=== PATIENT | male | born 1985 | race Caucasian/White ===

== ENCOUNTER 2017-10-07 08:00 | Outpatient (RCR) | payer OTHER, SELFPAY | END 2017-10-07 08:01 | disposition home or self-care (01) | LOC: PT 08:00 | PROVIDERS: Family Provider Family Medicine; PCP Family Medicine; Visit Provider Nurse Practitioner Family | DX: M54.5 Low back pain (principal); M54.10 Radiculopathy, site unspecified; M51.26 Other intervertebral disc displacement, lumbar region; Z98.890 Other specified postprocedural states | CPT/HCPCS: 97010; 97014; 97035; 97110; G0283 ==

== ENCOUNTER → 2017-12-22 07:45 | Outpatient (CLI) | payer OTHER, SELFPAY ==
[2017-12-22 08:08] LABS: Basophils % 0.3 % (0.1-2.0); Eosinophils # 0.1 K/mm3 (0.0-0.4); Eosinophils % 2.6 % (0.1-12.0); Hematocrit 43.6 % (42.0-52.0); Hemoglobin 14.9 g/dL (14.1-18.0); Lymphocytes # 1.5 K/mm3 (0.7-4.5); Lymphocytes % 34.3 K/mm3 (10-50); Mean Corpuscular HGB Conc 34.2 g/dL (31.8-35.4); Mean Corpuscular Hemoglobin 29.9 pg (27.0-31.2); Mean Corpuscular Volume 87.4 fl (80-94); Mean Platelet Volume 7.7 fl (7.4-10.4); Monocytes # 0.3 K/mm3 (0.1-1.0); Monocytes % 7.6 % (1.7-9.3); Neutrophils # 2.4 K/mm3 (1.8-7.8); Neutrophils % 55.2 % (37.0-80.0); Platelet Count 223 K/mm3 (142-424); Red Blood Count 4.99 M/mm3 (4.60-6.20); Red Cell Distribution Width 13.1 % (11.5-17.5); White Blood Count 4.4 K/mm3 (4.8-10.8)
--- NOTE | 2017-12-22 08:11 | CA_ITS ---
PROCEDURE: 2-D M-mode and color Doppler study INDICATIONS FOR THE TEST: Chest painX COPD Heart Murmur Tobacco Smoking PalpitationsX Fatigue Syncope Edema HypertensionXDiabetes Mellitus Rheumatic Fever SOBXDOE Obesity Hyperlipidemia Family History HD Additional History ANXIETY PATIENT INFORMATION HEIGHT: 73 WEIGHT:226 GENDER: Male B/P:137/86 2-D/M-MODE INTERPRETATION: 2-D MEASUREMENTS OBSERVED VALUES IN CMS Right Ventricular Dimension (RVDd) 2.1. Interventricular Septum (Thickness)(IVsd) .8 Left Ventricular Internal Dimensions(LVIDd) .5.5 Left Ventricular Posterior Wall (Thickness)(LVPWd) .9 Aortic Root 3.5 Aortic Cusp Separation 2.5 Left Atrial Dimensions (LAD) 2.6 2D 1. Left atrium is normal size, left ventricle is normal size, there is no concentric left ventricular hypertrophy, visually estimated ejection fraction 55% with no obvious regional wall motion abnormality. 2. The right atrium and right ventricle are normal size and contractility. 3. The aortic, mitral and tricuspid valvular grossly normal. 4. The pulmonic valve is poorly visualized. 5. No significant pericardial effusion noted. DOPPLER INTERROGATION: Doppler interrogation of the aortic, mitral and tricuspid valvular presence of mild mitral and tricuspid regurgitation, tricuspid and jet velocity is insufficient for calculation of the right ventricular systolic pressure, diastolic parameters are within normal range. CONCLUSION: 1. Normal left ventricular size, preserved left ventricular systolic function, visually estimated ejection fraction 55% with no obvious regional wall motion abnormality, diastolic parameters are within normal range. 2. Mild mitral and tricuspid regurgitation 3. No significant pericardial effusion noted.
[2017-12-22 09:05] LABS: Alanine Aminotransferase 31 U/L (12-78); Albumin Level 4.3 gm/dL (3.4-5.0); Alkaline Phosphatase 109 U/L (46-116); Anion Gap 12.2 mEq/L (5-15); Aspartate Amino Transferase 21 U/L (15-37); Bilirubin,Direct 0.2 mg/dL (0.0-0.2); Bilirubin,Indirect 0.5 mg/dL (0.0-0.9); Bilirubin,Total 0.7 mg/dL (0.2-1.0); Blood Urea Nitrogen 12 mg/dL (7-18); Carbon Dioxide 29 mmol/L (21.0-32.0); Chloride 106 mmol/L (98-107); Cholesterol 152 mg/dL (140-200); Creatinine,Serum 0.76 mg/dL (0.70-1.30); Estimated Glomerular Filt Rate 120 ml/min (>60); Free T4 (Free Thyroxine) 1.03 ng/dl (0.76-1.46); GFR (African American) 146 ML/MIN (>60); Glucose 101 mg/dL (74-106); HDL Cholesterol 38 mg/dL (27-67); LDL Cholesterol 106 mg/dL (0-130); Potassium 4.2 mmoL/L (3.5-5.1); Sodium 143 mmol/L (136-145); Thyroid Stimulating Hormone 1.92 uIU/ml (0.358-3.740); Total Protein,Serum 7.2 gm/dL (6.4-8.2); Triglycerides 40 mg/dL (30-200); VLDL Cholesterol 8 mg/dL (0-40)
== END ==
PROVIDERS: Nurse Practitioner Family; Family Provider Family Medicine; PCP Family Medicine; Visit Provider Internal Medicine
DX: R07.9 Chest pain, unspecified (principal); R06.02 Shortness of breath
CPT/HCPCS: 36415; 80048; 80061; 80076; 84439; 84443; 85025; 93017; 93306

== ENCOUNTER 2018-09-03 13:30 | Outpatient (RCR) | payer OTHER, SELFPAY | END 2018-09-03 13:35 | disposition home or self-care (01) | LOC: PT 13:30 | PROVIDERS: Visit Provider Nurse Practitioner Family | DX: M54.16 Radiculopathy, lumbar region (principal) | CPT/HCPCS: 97010; 97014; 97110; 97163; G0283 ==

== ENCOUNTER → 2018-11-01 12:52 | Outpatient (POV) | payer OTHER, SELFPAY ==
[2018-11-01 12:57] VITALS: BP 138/82; PULSE 72; RESP 18; O2SAT 98
--- NOTE | 2018-11-02 08:50 | HMH.PMCON ---
Assessment and Plan (1) Degenerative disc disease Current visit: Yes Status: Chronic Qualifiers: Spinal region: lumbar Qualified Code(s): M51.36 - Other intervertebral disc degeneration, lumbar region Category: Medical (2) Postlaminectomy syndrome Current visit: Yes Status: Chronic Category: Medical Code(s): M96.1 - Postlaminectomy syndrome, not elsewhere classified - Assessment and plan all Dx Assessment and Plan for all problems:: Patient has not had any epidural injections since his surgery. We will start with an L4-L5 lumbar epidural steroid injection and see if this is beneficial. Patient may be a stimulator candidate in the future. I would be cautious using narcotic medications due to the patient's age. Patient is not on any anticoagulation therapy. He is continuing anti-inflammatories. Patient is continuing a home stretching program. Dr. Eden has reviewed this note and agrees with this plan of care. This note was dictated using voice recognition software and may contain errors or omissions HPI - Data of Consult Consult date: 11/02/18 Requesting Physician: Fang Ayala APRN Primary Care Provider: Mir Javier - Consult Narrative Reason for consult: Back pain History of present illness: Mr. Tesfaye is a 32 year old male who presents today for consultation in regards to his low back pain. Patient was seen previously and had epidural injections with no relief. Patient rates his pain today a 7 out of 10. Mostly in his low back radiating into his right leg. Patient had his injection prior to his surgery which he had August 11, 2017. Patient states that he did not have any relief from this. Patient is stating today that he wants work restrictions. Patient MRI fairly benign other than the L4-L5 where there are some postsurgical changes with a right enhancing granulation tissue in the epidural space per report. CC: Fang Ayala APRN [facility] History I have reviewed the patient's past medical history: Yes Medical History: Reports:: Anxiety, Hypertension, Palpitations Laterality Cases: Bilateral: Tonsillectomy Other Surgeries: Yes: Appendectomy - *Social History Smoking Status: Never smoker Alcohol Intake: never Alcohol Intake Frequency:: other Substance Use Type: denies use *Occupational Status:: other Housing: house *Travel in the last 8 weeks: None - Psychiatric History Expresses thoughts of harming self/others: None Suicide Plan Description: No Plan Pschychiatric History:: Reports:: Anxiety Family Hx:: Unable to obtain Review of Systems - Review of Systems ROS General: no recent weight change, no fever, no sleep disturbances Respiratory: no cough, no shortness of air, no recurring pulmonary infections Cardiovascular/Peripheral Vascular: No chest pain, No palpitations, no edema, no shortness of breath. Gastrointestinal: no incontinence, normal bowel movements reported Genitourinary: no incontinence Musculoskeletal: Pain, leg pain Psychiatric: normal mood/ affect, Neurological: [denies weakness in extremities], [denies balance issues] Meds Home Medications Medication Instructions Recorded Confirmed Type alprazolam 0.5 mg tablet 0.5 mg PO DAILY tab 11/26/17 History aspirin 81 mg tablet,delayed 81 mg PO DAILY tab 11/26/17 History release atenolol 25 mg tablet 25 mg PO QAM 11/26/17 History lisinopril 10 mg tablet 10 mg PO DAILY tab 11/26/17 History omeprazole 20 mg capsule,delayed 20 mg PO DAILY cap 11/26/17 History release Allergies Allergy/AdvReac Type Severity Reaction Status Date / Time Penicillins [PENICILLINS] Allergy Intermediate I-RASH Unverified 07/28/17 15:11 Objective Vital signs: Pulse Resp BP Pulse Ox 72 18 138/82 98 11/01/18 12:57 11/01/18 12:57 11/01/18 12:57 11/01/18 12:57 Narrative: Physical Exam General: Alert and oriented x3, no acute distress, pleasant and cooperative
== END ==
PROVIDERS: PCP Family Medicine; Visit Provider Clinical Nurse Specialist Family Health
DX: M51.36 Other intervertebral disc degeneration, lumbar region (principal); M96.1 Postlaminectomy syndrome, not elsewhere classified
CPT/HCPCS: 99202

== ENCOUNTER → 2018-12-06 10:00 | Outpatient (POV) | payer OTHER, SELFPAY ==
[2018-12-06 10:08] VITALS: BP 135/74; PULSE 79; RESP 18; O2SAT 98; BMI 29.9
--- NOTE | 2018-12-06 10:26 | HMH.PAINSOAP ---
[facility] Pain Management SOAP Note Subjective:: Patient is a very pleasant 32-year-old white male who presents today for follow-up. Patient was denied by his injection for a lumbar epidural steroid injection from his insurance. Patient has postlaminectomy syndrome with extreme radiation of his pain down his legs. He is currently on anti-inflammatories along with amitriptyline. We will add gabapentin to his regimen. He rates his pain a 6 out of 10. Patient has done physical therapy and is continuing a home stretching program. Patient had pain for over 6 months. He has failed conservative therapy for over 6 months including medications physical therapy. He rates his pain a 7 out of 10. ROS General: no recent weight change, no fever, no sleep disturbances Respiratory: no cough, no shortness of air, no recurring pulmonary infections Cardiovascular/Peripheral Vascular: No chest pain, No palpitations, no edema, no shortness of breath. Gastrointestinal: no incontinence, normal bowel movements reported Genitourinary: no incontinence Musculoskeletal: Back pain, leg pain Psychiatric: normal mood/ affect Neurological: [denies weakness in extremities], [denies balance issues] Objective:: Physical Exam General: Alert and oriented x3, no acute distress, pleasant and cooperative, [on room air] Lungs: Resps E/U, Symmetrical chest expansion, Eyes: PERRL Musculoskeletal: Flexion and extension of lumbar spine somewhat guarded secondary to pain, deep tendon reflexes normal, strength in upper and lower extremities [5/5], slightly antalgic gait noted, positive straight leg test bilaterally at 30 degrees Neurological: speech clear, [place] equal, no gross sensory deficits Assessment:: Degenerative disc disease lumbar spine with lumbar radiculopathy and postlaminectomy syndrome Plan:: We will start the patient on gabapentin 300 mg 1 p.o. 3 times daily. I do believe the patient is in need of epidural injection at L4-L5 he is not on anticoagulation therapy he is failed conservative measures. He is continuing a home stretching program. Patient day-to-day activity is being limited due to this. I will follow-up with the patient after his injection reassess his symptoms at that time. . Dr. Eden has reviewed this note and agrees with this plan of care. This note was dictated using voice recognition software and may contain errors or omissions
== END ==
PROVIDERS: PCP Family Medicine; Visit Provider Clinical Nurse Specialist Family Health
DX: M51.16 Intervertebral disc disorders with radiculopathy, lumbar region (principal); M96.1 Postlaminectomy syndrome, not elsewhere classified
CPT/HCPCS: 99212

== ENCOUNTER → 2019-03-28 13:55 | Outpatient (POV) | payer MEDICAID, SELFPAY ==
[2019-03-28 14:32] VITALS: BP 127/72; PULSE 76; RESP 18; O2SAT 98; BMI 29.4
--- NOTE | 2019-03-28 14:58 | HMH.PAINSOAP ---
[facility] Pain Management SOAP Note Subjective:: Patient is a very pleasant 33-year-old white male who presents today for follow-up. Patient was denied for his epidural injection from his insurance. He has postlaminectomy syndrome with extreme radiation of pain down his legs. He is currently on anti-inflammatories along with amitriptyline. He is also on gabapentin. He rates his pain today of 6 out of 10. Patient is done physical therapy and is continuing a home stretching program. Patient had pain for over 6 months he has failed conservative therapy for over 6 months including medications and physical therapy. He is not currently on any anticoagulation therapy. ROS General: no recent weight change, no fever, no sleep disturbances Respiratory: no cough, no shortness of air, no recurring pulmonary infections Cardiovascular/Peripheral Vascular: No chest pain, No palpitations, no edema, no shortness of breath. Gastrointestinal: no incontinence, normal bowel movements reported Genitourinary: no incontinence Musculoskeletal: Back pain, leg pain Psychiatric: normal mood/ affect Neurological: [denies weakness in extremities], [denies balance issues] Objective:: Physical Exam General: Alert and oriented x3, no acute distress, pleasant and cooperative, [on room air] Lungs: Resps E/U, Symmetrical chest expansion, Eyes: PERRL Musculoskeletal: Flexion and extension of lumbar spine somewhat guarded secondary to pain, deep tendon reflexes normal, strength in upper and lower extremities [5/5], [abnormal gait noted] positive straight leg raise test bilaterally at 30 degrees Neurological: speech clear, regulatory compliance director equal, no gross sensory deficits Assessment:: Degenerative disc disease lumbar spine with lumbar radiculopathy along with post laminectomy syndrome Plan:: We will schedule him for an L4-L5 lumbar epidural steroid injection. He is failed conservative measures. He is continuing home stretching program. Patient's day-to-day activity is being limited due to this. I will follow-up with him after his injection reassess his symptoms at that time. He is been instructed to call the office if he has any issues prior to his next appointment. Dr. Eden has reviewed this note and agrees with this plan of care. This note was dictated using voice recognition software and may contain errors or omissions Pain Management Hx Components *Have you ever received a pneumonia vaccine?: No *Have you received a flu vaccine this season?: No - *Social History *Occupational Status:: other *Travel in the last 8 weeks: None
--- NOTE | 2019-03-29 08:25 | PC.NURSE ---
called in Rx for Gabapentin 300mg QID with 2 refills to clinic pharmacy per providers' order
== END ==
PROVIDERS: PCP Family Medicine; Visit Provider Clinical Nurse Specialist Family Health
DX: M51.16 Intervertebral disc disorders with radiculopathy, lumbar region (principal); M96.1 Postlaminectomy syndrome, not elsewhere classified
CPT/HCPCS: 99212

== ENCOUNTER → 2019-04-18 13:20 | Outpatient (POV) | payer MEDICAID, SELFPAY ==
[2019-04-18 13:49] VITALS: BP 149/92; PULSE 80; RESP 18; O2SAT 98; BMI 30.1
--- NOTE | 2019-04-18 14:33 | HMH.PAINSOAP ---
[facility] Pain Management SOAP Note Subjective:: Patient is a pleasant 33-year-old white male who presents today for follow-up. He had an epidural injection however in the last few days he has had extreme increase of pain rating down his right leg rating it a 9 out of 10 he is unable to work at his normal pace. He is having quite a lot of issues. ROS General: no recent weight change, no fever, no sleep disturbances Respiratory: no cough, no shortness of air, no recurring pulmonary infections Cardiovascular/Peripheral Vascular: No chest pain, No palpitations, no edema, no shortness of breath. Gastrointestinal: no incontinence, normal bowel movements reported Genitourinary: no incontinence Musculoskeletal: Back pain, leg pain Psychiatric: normal mood/ affect Neurological: [denies weakness in extremities], [denies balance issues] Objective:: Physical Exam General: Alert and oriented x3, no acute distress, pleasant and cooperative, [on room air] Lungs: Resps E/U, Symmetrical chest expansion, Eyes: PERRL Musculoskeletal: Flexion and extension of lumbar spine somewhat guarded secondary to pain, deep tendon reflexes normal, strength in upper and lower extremities [5/5], [abnormal gait noted] Neurological: speech clear, junior manufacturing engineer equal, no gross sensory deficits Assessment:: Postlaminectomy syndrome lumbar spine with lumbar radiculopathy Plan:: We did discuss a neurostimulator he is potentially interested in this. We will give him a dose of prednisone 20 mg 1 p.o. twice daily for 5 days. Also put him on a 10 pound weight limit at work for a week. We will follow-up with the patient on the and is normally scheduled appointment. Dr. Eden has reviewed this note and agrees with this plan of care. This note was dictated using voice recognition software and may contain errors or omissions Pain Management Hx Components *Have you ever received a pneumonia vaccine?: No *Have you received a flu vaccine this season?: Yes - *Social History *Occupational Status:: other *Travel in the last 8 weeks: None
== END ==
PROVIDERS: PCP Family Medicine; Visit Provider Clinical Nurse Specialist Family Health
DX: M96.1 Postlaminectomy syndrome, not elsewhere classified (principal); M54.16 Radiculopathy, lumbar region
CPT/HCPCS: 99212

== ENCOUNTER → 2019-05-09 10:38 | Outpatient (POV) | payer MEDICAID, SELFPAY ==
[2019-05-09 11:05] VITALS: BP 127/74; PULSE 72; RESP 18; O2SAT 98; BMI 31.1
--- NOTE | 2019-05-09 11:47 | HMH.PAINSOAP ---
[facility] Pain Management SOAP Note Subjective:: Patient is a pleasant 33-year-old white male who presents today for follow-up. Patient had an epidural injection however he had extreme pain post procedure. Patient was put on a round of steroids. This has helped. Patient rates his pain a 7 out of 10 most of his pain is down his leg on the right side this is occurred since surgery with Dr. Serrano. Patient has no relief from it is numbness and tingling along with burning and other nervelike pain. Patient's failed gabapentin along with amitriptyline. Patient and I discussed potentially utilizing Lyrica. Patient rates his pain a 7 out of 10 today. Patient can go back to work and lift I encouraged him to use a back brace while lifting. Patient and I discussed neuro stimulation he is interested in pursuing this. Given his age I do not believe a narcotic regimen would be beneficial to him at this time. ROS General: no recent weight change, no fever, no sleep disturbances Respiratory: no cough, no shortness of air, no recurring pulmonary infections Cardiovascular/Peripheral Vascular: No chest pain, No palpitations, no edema, no shortness of breath. Gastrointestinal: no incontinence, normal bowel movements reported Genitourinary: no incontinence Musculoskeletal: Back pain, leg pain Psychiatric: normal mood/ affect Neurological: [denies weakness in extremities], [denies balance issues] Objective:: Physical Exam General: Alert and oriented x3, no acute distress, pleasant and cooperative, [on room air] Lungs: Resps E/U, Symmetrical chest expansion, Eyes: PERRL Musculoskeletal: Flexion and extension of lumbar spine somewhat guarded secondary to pain, deep tendon reflexes normal, strength in upper and lower extremities [5/5], [abnormal gait noted] Neurological: speech clear, field coordinator equal, no gross sensory deficits Assessment:: Physical Exam General: Alert and oriented x3, no acute distress, pleasant and cooperative, [on room air] Lungs: Resps E/U, Symmetrical chest expansion, Eyes: PERRL Musculoskeletal: Flexion and extension of lumbar spine somewhat guarded secondary to pain, deep tendon reflexes normal, strength in upper and lower extremities [5/5], [abnormal gait noted] Neurological: speech clear, field coordinator equal, no gross sensory deficits Plan:: We will start the patient on Lyrica 75 mg 1 p.o. twice daily. I did encourage him to utilize a back brace while lifting. We will set him up for a psychological evaluation to determine if he is a good candidate for a neurostimulator. Patient's been instructed to call the office if he had his any issues prior to his next appointment. Dr. Eden has reviewed this note and agrees with this plan of care. This note was dictated using voice recognition software and may contain errors or omissions [facility] History I have reviewed the patient's past medical history: Yes Medical History: Reports:: Anxiety, Hypertension, Palpitations Denies:: Cancer, Diabetes Mellitus Type 1, Diabetes Mellitus Type 2, MRSA, Seizures *Have you ever received a pneumonia vaccine?: Yes *Have you received a flu vaccine this season?: Yes Other Medical History: Denies: Blood Transfusion Reaction Laterality Cases: Bilateral: Tonsillectomy Other Surgeries: Yes: Appendectomy Amputation: No - *Social History Smoking Status: Never smoker Alcohol Intake: never Alcohol Intake Frequency:: other Substance Use Type: denies use *Occupational Status:: other Housing: house Household Members: spouse *Travel in the last 8 weeks: None - Psychiatric History Pschychiatric History:: Reports:: Anxiety Family Hx:: Unable to obtain
--- NOTE | 2019-05-09 11:51 | P.CONS_ITS ---
[facility] Pain Management SOAP Note Subjective:: Patient is a pleasant 33-year-old white male who presents today for follow-up. Patient had an epidural injection however he had extreme pain post procedure. Patient was put on a round of steroids. This has helped. Patient rates his pain a 7 out of 10 most of his pain is down his leg on the right side this is occurred since surgery with Dr. Serrano. Patient has no relief from it is numbness and tingling along with burning and other nervelike pain. Patient's failed gabapentin along with amitriptyline. Patient and I discussed potentially utilizing Lyrica. Patient rates his pain a 7 out of 10 today. Patient can go back to work and lift I encouraged him to use a back brace while lifting. Patient and I discussed neuro stimulation he is interested in pursuing this. Given his age I do not believe a narcotic regimen would be beneficial to him at this time. ROS General: no recent weight change, no fever, no sleep disturbances Respiratory: no cough, no shortness of air, no recurring pulmonary infections Cardiovascular/Peripheral Vascular: No chest pain, No palpitations, no edema, no shortness of breath. Gastrointestinal: no incontinence, normal bowel movements reported Genitourinary: no incontinence Musculoskeletal: Back pain, leg pain Psychiatric: normal mood/ affect Neurological: [denies weakness in extremities], [denies balance issues] Objective:: Physical Exam General: Alert and oriented x3, no acute distress, pleasant and cooperative, [on room air] Lungs: Resps E/U, Symmetrical chest expansion, Eyes: PERRL Musculoskeletal: Flexion and extension of lumbar spine somewhat guarded secondary to pain, deep tendon reflexes normal, strength in upper and lower extremities [5/5], [abnormal gait noted] Neurological: speech clear, profile saw operator equal, no gross sensory deficits Assessment:: Physical Exam General: Alert and oriented x3, no acute distress, pleasant and cooperative, [on room air] Lungs: Resps E/U, Symmetrical chest expansion, Eyes: PERRL Musculoskeletal: Flexion and extension of lumbar spine somewhat guarded secondary to pain, deep tendon reflexes normal, strength in upper and lower extremities [5/5], [abnormal gait noted] Neurological: speech clear, profile saw operator equal, no gross sensory deficits Plan:: We will start the patient on Lyrica 75 mg 1 p.o. twice daily. I did encourage him to utilize a back brace while lifting. We will set him up for a psychologic al evaluation to determine if he is a good candidate for a neurostimulator. Patient's been instructed to call the office if he had his any issues prior to his next appointment. Dr. Eden has reviewed this note and agrees with this plan of care. This note was dictated using voice recognition software and may contain errors or omissions [facility] History I have reviewed the patient's past medical history: Yes Medical History: Reports:: Anxiety, Hypertension, Palpitations Denies:: Cancer, Diabetes Mellitus Type 1, Diabetes Mellitus Type 2, MRSA, Seizures *Have you ever received a pneumonia vaccine?: Yes *Have you received a flu vaccine this season?: Yes Other Medical History: Denies: Blood Transfusion Reaction Laterality Cases: Bilateral: Tonsillectomy Other Surgeries: Yes: Appendectomy Amputation: No - *Social History Smoking Status: Never smoker Alcohol Intake: never Alcohol Intake Frequency:: other Substance Use Type: denies use *Occupational Status:: other Housing: house Household Members: spouse *Travel in the last 8 weeks:
== END ==
PROVIDERS: PCP Family Medicine; Visit Provider Clinical Nurse Specialist Family Health
DX: G89.18 Other acute postprocedural pain (principal)
CPT/HCPCS: 99212

== ENCOUNTER → 2019-06-28 10:01 | Outpatient (POV) | payer OTHER, SELFPAY ==
[2019-06-28 10:16] VITALS: BP 122/76; PULSE 72; RESP 18; O2SAT 97; BMI 29.5
--- NOTE | 2019-06-28 15:26 | HMH.PAINSOAP ---
[facility] Pain Management SOAP Note Subjective:: Patient is a pleasant 33-year-old white male who presents today for follow-up. Patient is awaiting a neurostimulator approval. Patient has low back pain and bilateral leg pain secondary to surgery. Patient has color changes and swelling in bilateral lower extremities. Patient rates his pain today at 8 out of 10 patient did have a recent injury to his right hip is been having pain since. We will send him for an x-ray today. Start him on some steroids. Patient's typical pain is in his low back and bilateral lower extremities. Patient and I have talked about multiple modalities of interventional treatment. He is tried injection therapy with no relief. Patient is interested in a neurostimulator. I believe given his age that this would be beneficial for him. ROS General: no recent weight change, no fever, no sleep disturbances Respiratory: no cough, no shortness of air, no recurring pulmonary infections Cardiovascular/Peripheral Vascular: No chest pain, No palpitations, no edema, no shortness of breath. Gastrointestinal: no new onset incontinence, normal bowel movements reported Genitourinary: no new onset incontinence Musculoskeletal: Back pain, leg pain, right hip pain Psychiatric: normal mood/ affect, Neurological: [denies new onset weakness in extremities], [denies new onset balance issues] Objective:: Physical Exam General: Alert and oriented x3, no acute distress, pleasant and cooperative, [on room air] Lungs: Resps E/U, Symmetrical chest expansion, Eyes: PERRL Musculoskeletal: Flexion and extension of lumbar spine somewhat guarded secondary to pain, deep tendon reflexes normal, strength in upper and lower extremities [5/5], [abnormal gait noted] Neurological: speech clear, music supervisor equal, no gross sensory deficits Assessment:: Right hip pain, right SI joint pain, low back pain, postlaminectomy syndrome, CRPS type II bilateral lower extremities Plan:: We will plan a neurostimulator trial with 2 leads with 8 electrodes each per his insurance recommendations. We will follow-up throughout his trial and see if it is successful. We will also call in prednisone 20 mg 1 p.o. twice daily for 5 days to help with his hip pain. We will also send him for an x-ray of his right hip. Dr. Eden has reviewed this note and agrees with this plan of care. This note was dictated using voice recognition software and may contain errors or omissions [facility] History I have reviewed the patient's past medical history: Yes Medical History: Reports:: Anxiety, Hypertension, Palpitations Denies:: Cancer, Diabetes Mellitus Type 1, Diabetes Mellitus Type 2, Internal Pacemaker, MRSA, Seizures *Have you ever received a pneumonia vaccine?: No *Have you received a flu vaccine this season?: Yes Other Medical History: Denies: Blood Transfusion Reaction Laterality Cases: Right: Arthroscopy Knee, Bilateral: Tonsillectomy Other Surgeries: Yes: Appendectomy. No: Pacemaker Amputation: No Fractures: No - *Social History Smoking Status: Never smoker Alcohol Intake: never Alcohol Intake Frequency:: other Substance Use Type: denies use *Occupational Status:: employed Housing: house Household Members: spouse *Travel in the last 8 weeks: None - Psychiatric History Pschychiatric History:: Reports:: Anxiety Family Hx:: Cancer
--- NOTE | 2019-06-28 15:29 | P.CONS_ITS ---
[facility] Pain Management SOAP Note Subjective:: Patient is a pleasant 33-year-old white male who presents today for follow-up. Patient is awaiting a neurostimulator approval. Patient has low back pain and bilateral leg pain secondary to surgery. Patient has color changes and swelling in bilateral lower extremities. Patient rates his pain today at 8 out of 10 patient did have a recent injury to his right hip is been having pain since. We will send him for an x-ray today. Start him on some steroids. Patient's typical pain is in his low back and bilateral lower extremities. Patient and I have talked about multiple modalities of interventional treatment. He is tried injection therapy with no relief. Patient is interested in a neurostimulator. I believe given his age that this would be beneficial for him. ROS General: no recent weight change, no fever, no sleep disturbances Respiratory: no cough, no shortness of air, no recurring pulmonary infections Cardiovascular/Peripheral Vascular: No chest pain, No palpitations, no edema, no shortness of breath. Gastrointestinal: no new onset incontinence, normal bowel movements reported Genitourinary: no new onset incontinence Musculoskeletal: Back pain, leg pain, right hip pain Psychiatric: normal mood/ affect, Neurological: [denies new onset weakness in extremities], [denies new onset balance issues] Objective:: Physical Exam General: Alert and oriented x3, no acute distress, pleasant and cooperative, [on room air] Lungs: Resps E/U, Symmetrical chest expansion, Eyes: PERRL Musculoskeletal: Flexion and extension of lumbar spine somewhat guarded secondary to pain, deep tendon reflexes normal, strength in upper and lower extremities [5/5], [abnormal gait noted] Neurological: speech clear, technical designer equal, no gross sensory deficits Assessment:: Right hip pain, right SI joint pain, low back pain, postlaminectomy syndrome, CRPS type II bilateral lower extremities Plan:: We will plan a neurostimulator trial with 2 leads with 8 electrodes each per his insurance recommendations. We will follow-up throughout his trial and see if it is successful. We will also call in prednisone 20 mg 1 p.o. twice daily for 5 days to help with his hip pain. We will also send him for an x-ray of his right hip. Dr. Eden has reviewed this note and agrees with this plan of care. This note was dictated using voice recognition software and may contain errors or omissions [facility] History I have reviewed the patient's past medical history: Yes Medical History: Reports:: Anxiety, Hypertension, Palpitations Denies:: Cancer, Diabetes Mellitus Type 1, Diabetes Mellitus Type 2, Internal Pacemaker, MRSA, Seizures *Have you ever received a pneumonia vaccine?: No *Have you received a flu vaccine this season?: Yes Other Medical History: Denies: Blood Transfusion Reaction Laterality Cases: Right: Arthroscopy Knee, Bilateral: Tonsillectomy Other Surgeries: Yes: Appendectomy. No: Pacemaker Amputation: No Fractures: No - *Social History Smoking Status: Never smoker Alcohol Intake: never Alcohol Intake Frequency:: other Substance Use Type: denies use *Occupational Status:: employed Housing: house Household Members: spouse *Travel in the last 8 weeks: None - Psychiatric History Pschychiatric History:: Reports:: Anxiety Family Hx:: Cancer
== END ==
PROVIDERS: PCP Family Medicine; Visit Provider Clinical Nurse Specialist Family Health
DX: M46.1 Sacroiliitis, not elsewhere classified (principal); M96.1 Postlaminectomy syndrome, not elsewhere classified; G57.73 Causalgia of bilateral lower limbs
CPT/HCPCS: 99212

== ENCOUNTER → 2019-07-05 11:15 | Outpatient (POV) | payer OTHER, SELFPAY ==
[2019-07-05 11:58] VITALS: BP 139/71; PULSE 69; RESP 18; O2SAT 98; BMI 30.3
--- NOTE | 2019-07-05 12:51 | P.PCN_ITS ---
- Procedure Date: 07/05/19 Time: 12:48 Anesthesiologist:: Fang Ayala APRN Complications:: None Pre-procedure Diagnosis:: Degenerative disc disease lumbar spine with lumbar radiculopathy symptoms status post discectomy at L4-L5 with right leg radicular symptoms Post-procedure Diagnosis:: Same Indications for Procedure:: Patient is a very pleasant 33-year-old white male who presents today for neurostimulator trial lead removal. Patient has had over 80% relief of his symptomology. Patient has had a decrease in autonomic symptomology in his right leg. Patient is a successful neurostimulator trial. Patient's failed conservative therapies and surgery. These include physical therapy oral medications injection therapy he has an appropriate psychological evaluation. He rates his pain today a 2 out of 10. 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 Patient's vital signs were monitored with noninvasive blood pressure cuff and pulse oximeter. Patient's tape was removed on her back. The area in which her epidural leads entered was examined to ensure no redness or draining. Patient leads were then removed in sterile fashion. Patient then had Band-Aids placed over the puncture sites. Patient tolerated the procedure well. Plan and Disposition:: We will set the patient up for permanently placement. Leads were placed at T7 and T8. We will use 2 leads. Patient is not on any anticoagulation therapy. Patient was able to decrease his amount of medication needed. Dr. Eden has reviewed this note and agrees with this plan of care. This note was dictated using voice recognition software and may contain errors or omissions I will follow-up with the patient after his permanent implant. Patient I had a long discussion in regards to risk and benefits. I answered all his questions.
== END ==
PROVIDERS: PCP Family Medicine; Visit Provider Clinical Nurse Specialist Family Health
DX: M51.16 Intervertebral disc disorders with radiculopathy, lumbar region (principal); M96.1 Postlaminectomy syndrome, not elsewhere classified
CPT/HCPCS: 99212

== ENCOUNTER → 2019-08-04 10:52 | Outpatient (POV) | payer OTHER, SELFPAY ==
[2019-08-04 11:03] VITALS: BP 140/81; PULSE 86; RESP 18; O2SAT 99; BMI 31.1
--- NOTE | 2019-08-04 11:23 | P.CONS_ITS ---
[facility] Pain Management SOAP Note Subjective:: Patient is a pleasant 33-year-old white male who presents today for low back pain with lumbar radiculopathy symptoms. Patient recently underwent a spinal cord stimulator placement. Overall, he says he is doing well. He rates his pain a 2 out of 10 today. Patient says he is not having any problems at all. Patient had autonomic symptoms of CRPS type I down his right leg. He can failed all conservative therapies including injections, oral medications, physical therapy, and previous surgery. Patient says that he is getting approximately 90% relief after his stimulator placement. He is also continue with anti- inflammatories and a home stretching program. Review of Systems General: No recent weight changes, no fever, no sleep disturbances Respiratory: No cough, no shortness of air, no recurring pulmonary infections Cardiovascular/peripheral vascular: No chest pain, no palpitations, no edema, no shortness of breath Gastrointestinal: No new onset incontinence, normal bowel movements reported Genitourinary: No new onset incontinence Musculoskeletal: Low back pain, right leg pain Psychiatric: Normal mood/affect Neurological: [Denies weakness in extremities], [denies balance issues] Objective:: Physical exam General: Alert and oriented x3, no acute distress, pleasant and cooperative, [on room air] Lungs: Respirations even and unlabored, symmetrical chest expansion Eyes: PERRL Musculoskeletal: Flexion and extension of lumbar spine somewhat guarded secondary to pain, deep tendon reflexes normal, strength in upper and lower extremities [5/5], [abnormal gait noted] Neurological: Speech clear, unit nurse equal, no gross sensory deficit Assessment:: Degenerative disc disease lumbar spine with lumbar radiculopathy symptoms, status post discectomy at L4-L5, right leg radicular symptoms Plan:: Patient is doing well overall following his stimulator placement. His wound VAC was removed, and his incision was well approximated, with no edema, no redness, no drainage noted. We will see the patient back in 2 weeks to remove his sutures. He has been instructed to contact the clinic if he has any concerns before his next appointment. Dr. Eden has reviewed this note and agrees with this plan of care. This note was dictated using voice recognition software and make contain errors or omissions. [facility] History I have reviewed the patient's past medical history: Yes Medical History: Reports:: Anxiety, Hypertension, Palpitations Denies:: Cancer, Diabetes Mellitus Type 1, Diabetes Mellitus Type 2, Internal Pacemaker, MRSA, Seizures *Have you ever received a pneumonia vaccine?: Yes *Have you received a flu vaccine this season?: Yes Other Medical History: Denies: Blood Transfusion Reaction Laterality Cases: Right: Arthroscopy Knee, Bilateral: Tonsillectomy Other Surgeries: Yes: Appendectomy, Other (back sx). No: Pacemaker Amputation: No Fractures: No - *Social History Smoking Status: Never smoker Alcohol Intake: never Alcohol Intake Frequency:: other Substance Use Type: denies use *Occupational Status:: other Housing: house Household Members: spouse *Travel in the last 8 weeks: None - Psychiatric History Pschychiatric History:: Reports:: Anxiety Family Hx:: Cancer
== END ==
PROVIDERS: PCP Family Medicine; Visit Provider Clinical Nurse Specialist Family Health
DX: M51.16 Intervertebral disc disorders with radiculopathy, lumbar region (principal); Z98.890 Other specified postprocedural states
CPT/HCPCS: 99212

== ENCOUNTER → 2019-08-22 10:42 | Outpatient (POV) | payer OTHER, SELFPAY ==
[2019-08-22 11:43] VITALS: BP 131/78; PULSE 75; RESP 18; O2SAT 98; BMI 31.1
--- NOTE | 2019-08-22 12:05 | P.CONS_ITS ---
[facility] Pain Management SOAP Note Subjective:: Patient is a pleasant 33-year-old white male who presents today for follow-up after neurostimulator implant. Overall patient doing well. Patient rates his pain a 1 out of 10 today. Patient is well-healed with no sign symptoms of infection. Patient is being reprogrammed today. ROS General: no recent weight change, no fever, no sleep disturbances Respiratory: no cough, no shortness of air, no recurring pulmonary infections Cardiovascular/Peripheral Vascular: No chest pain, No palpitations, no edema, no shortness of breath. Gastrointestinal: no new onset incontinence, normal bowel movements reported Genitourinary: no new onset incontinence Musculoskeletal: Back pain at times Psychiatric: normal mood/ affect Neurological: [denies new onset weakness in extremities], [denies new onset balance issues] Objective:: Physical Exam General: Alert and oriented x3, no acute distress, pleasant and cooperative, [on room air] Lungs: Resps E/U, Symmetrical chest expansion, Eyes: PERRL Musculoskeletal: Flexion and extension of lumbar spine somewhat guarded secondary to pain, deep tendon reflexes normal, strength in upper and lower extremities [5/5], normal gait noted Neurological: speech clear, metal roaster equal, no gross sensory deficits Assessment:: Degenerative disc disease lumbar spine with lumbar radiculopathy and postlaminectomy syndrome Plan:: We will see the patient back in 2 months reassess his symptoms at that time he is been instructed to call the office if he has any issues prior to the next appointment. We will put him on light duty for the next 4 weeks with a restriction of lifting over 10 pounds. After 8 weeks patient will be cleared of restrictions and may return to work full-time. Dr. Eden has reviewed this note and agrees with this plan of care. This note was dictated using voice recognition software and may contain errors or omissions [facility] History I have reviewed the patient's past medical history: Yes Medical History: Reports:: Anxiety, Hypertension, Palpitations Denies:: Cancer, Diabetes Mellitus Type 1, Diabetes Mellitus Type 2, Internal Pacemaker, MRSA, Seizures *Have you ever received a pneumonia vaccine?: Yes *Have you received a flu vaccine this season?: Yes Other Medical History: Denies: Blood Transfusion Reaction Laterality Cases: Right: Arthroscopy Knee, Bilateral: Tonsillectomy Other Surgeries: Yes: Appendectomy, Other (back sx). No: Pacemaker Amputation: No Fractures: No - *Social History Smoking Status: Never smoker Alcohol Intake: never Alcohol Intake Frequency:: other Substance Use Type: denies use *Occupational Status:: other Housing: house Household Members: spouse *Travel in the last 8 weeks: None - Psychiatric History Pschychiatric History:: Reports:: Anxiety Family Hx:: Cancer
== END ==
PROVIDERS: PCP Family Medicine; Visit Provider Clinical Nurse Specialist Family Health
DX: M51.16 Intervertebral disc disorders with radiculopathy, lumbar region (principal); M96.1 Postlaminectomy syndrome, not elsewhere classified; R00.2 Palpitations; I10 Essential (primary) hypertension; F41.9 Anxiety disorder, unspecified
CPT/HCPCS: 99212

== ENCOUNTER → 2019-12-19 13:14 | Outpatient (POV) | payer OTHER, SELFPAY ==
--- NOTE | 2019-12-19 14:58 | HMH.VVPMSO ---
[facility] Virtual Visit SOAP Consent for virtual visit:: With the recent concerns about the COVID-19, we are trying to minimize exposure to you by shifting to telehealth appointments whenever possible. It restricts me from seeing you in person, but the trade off is protecting you during this pandemic. Can you see and hear me okay, and do you consent to this option? If not, I would be happy to see if we can reschedule your appointment in the future, when feasible. Has patient consented to this virtual visit?: Yes Subjective:: Is a 34-year-old white male who presents today to discuss his injury at work. He is recently hurt his back. Patient does have a neurostimulator which is helping however since he is hurt his back he has had several rounds of steroids with no relief. Patient rates his pain today a 7 out of 10. Patient has difficulty with activities of daily living. Patient has had surgery in the past I do believe it would be beneficial to order an MRI of the lumbar spine to determine if there is any damage done post injury. ROS General: no recent weight change, no fever, no sleep disturbances Respiratory: no cough, no shortness of air, no recurring pulmonary infections Cardiovascular/Peripheral Vascular: No chest pain, No palpitations, no edema, no shortness of breath. Gastrointestinal: no new onset incontinence, normal bowel movements reported Genitourinary: no new onset incontinence Musculoskeletal: Back pain, leg pain Psychiatric: normal mood/ affect, [denies depression], [denies anxiety] Neurological: Some bilateral lower extremities when standing new onset, [denies new onset balance issues] Objective:: Physical exam: Constitutional: Healthy appearing, well-developed, alert, in no acute distress Psychiatric: Judgment and insight intact, Alert and oriented x4 Mood and affect: Mood normal, affect appropriate Head and face: Inspection: Normocephalic atraumatic, extraocular movement intact Respiratory: Breathing nonlabored, nondyspneic Cardiovascular: No cyanosis, clubbing, or edema observed Skin: Head and neck: Skin with no lesions or rash observed Gait: Able to walk without assistive device: Able to heel and toe walk Neurologic: Sensation grossly intact per patient Musculoskeletal: Patient has difficulty with the sitting to standing motion he also has decreased range of motion lumbar spine Assessment:: Degenerative disc disease lumbar spine lumbar radiculopathy, postlaminectomy syndrome, acute low back pain weakness in bilateral lower extremities Plan:: We will order an updated MRI for the patient. This will help us determine if there is been any issues post surgery and with this work injury. I will follow-up with him after that reassess his symptoms at that time he is on an anti-inflammatory. This encounter was performed as a telemedicine visit via secure 2 way video and audio to minimize risk and transmission of Covid-19. The patient and we understand the limitations of a telemedicine visit including inability to check reflexes, possibly missing subtle findings on physical exam. Alternative options were presented to the patient and the patient elected to proceed with the visit. We specifically discussed risk factors for Covid-19 including age, heart or lung disease, diabetes, immunosuppression and travel. We also discussed that NSAIDs may worsen Covid-19 infection symptoms and that they should not be used to treat Covid-19 symptoms. Patient was also informed that corticosteroids in any form oral or injectable will decrease immune response and may increase risk of Covid-[address] Eden has reviewed this patient's chart and this note and agrees with plan of care. Patient has been instructed to call the office if they have any issues prior to the next appointment. Time In:: 13:20 Time Out:: 13:30 [facility] History I have reviewed the patient's past medical history: Yes Medical History: Reports:: Anxiety,
== END ==
PROVIDERS: Visit Provider Clinical Nurse Specialist Family Health
DX: M51.16 Intervertebral disc disorders with radiculopathy, lumbar region (principal); M96.1 Postlaminectomy syndrome, not elsewhere classified
CPT/HCPCS: 99212

== ENCOUNTER → 2019-12-23 09:15 | Outpatient (CLI) | payer OTHER, SELFPAY ==
--- NOTE | 2019-12-23 09:30 | MR_ITS ---
PROCEDURE: MR LUMBAR SPINE WO CON CLINICAL INDICATION: BACK PAIN Low back pain, injury with pain, right leg pain numbness and tingling COMPARISON: [facility]/O MRI-L-SPINE W/O from 05/04/2017 TECHNIQUE: Standard multiplanar multiecho sequences are performed without contrast. 3-D MIP and myelographic images are also rendered and reviewed FINDINGS: There is normal alignment. The spinal cord ends at the T12-L1 level. The patient has had an neurostimulator placed in the interval with artifact from that device. T12-L1: Unremarkable. L1-L2: Unremarkable. L2-L3: Unremarkable. L3-L4: Unremarkable. L4-5: There is mild disc desiccation with bulging disc with an annular fissure along with facet and ligamentum hypertrophy. There is minimal central disc protrusion. This however is smaller than when compared to the previous exam with less mass effect. There is persistent narrowing of the canal at 10 mm. There is bilateral lateral recess narrowing and mild bilateral foraminal narrowing. There appears to be a laminotomy defect on the right at this level. Please correlate with history of possible surgery. L5-S1: Mild facet hypertrophic change. IMPRESSION: 1. There is mild disc desiccation at L4-5 with bulging disc with an annular fissure along with facet and ligamentum hypertrophy. There is a small central disc protrusion. This however is smaller than when compared to the previous exam with less mass effect on today's exam. There is persistent narrowing of the canal at 10 mm but improved compared to the previous exam. There is bilateral lateral recess narrowing and mild bilateral foraminal narrowing. There appears to be a laminotomy defect on the right at this level. Please correlate with history of possible surgery. 2. Otherwise negative MRI of the lumbar spine Dictated by: Cam Taveras MD 12/24/2019 07:43 Electronically signed by Cam Taveras MD in [place] 12/24/2019 07:43
== END ==
PROVIDERS: Visit Provider Anesthesiology
DX: M54.5 Low back pain (principal)
CPT/HCPCS: 72148; 76376

== ENCOUNTER → 2020-01-09 10:58 | Outpatient (POV) | payer OTHER, SELFPAY ==
[2020-01-09 11:26] VITALS: BP 137/82; PULSE 85; RESP 18; TEMP 36.4; O2SAT 99; BMI 30.7
--- NOTE | 2020-01-10 08:22 | P.CONS_ITS ---
[facility] Pain Management SOAP Note Subjective:: Pleasant 34-year-old white male who presents today for follow-up. Patient had an injury resulting in worsening back pain. He does have a neurostimulator which has helped up until recently. Patient did have an MRI there is no new findings on his MRI. Patient and I discussed an epidural steroid injection will move forward with this. He rates his pain a 7 out of 10. ROS General: no recent weight change, no fever, no sleep disturbances Respiratory: no cough, no shortness of air, no recurring pulmonary infections Cardiovascular/Peripheral Vascular: No chest pain, No palpitations, no edema, no shortness of breath. Gastrointestinal: no new onset incontinence, normal bowel movements reported Genitourinary: no new onset incontinence Musculoskeletal: Back pain, leg pain Psychiatric: normal mood/ affect Neurological: [denies new onset weakness in extremities], [denies new onset balance issues] Objective:: Physical Exam General: Alert and oriented x3, no acute distress, pleasant and cooperative, [on room air] Lungs: Resps E/U, Symmetrical chest expansion, Eyes: PERRL Musculoskeletal: Flexion and extension of lumbar spine somewhat guarded secondary to pain, deep tendon reflexes normal, strength in upper and lower extremities [5/5], [abnormal gait noted] Neurological: speech clear, education professor 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 Patient is not on any anticoagulation therapy. Hopefully this will help with his acute pain. We will also have him reprogrammed after the injection. He is been instructed to call the office if he has any issues prior to his next appointment. Dr. Eden has reviewed this note and agrees with this plan of care. This note was dictated using voice recognition software and may contain errors or omissions [facility] History I have reviewed the patient's past medical history: Yes Medical History: Reports:: Anxiety, Hypertension, Palpitations Denies:: Cancer, Diabetes Mellitus Type 1, Diabetes Mellitus Type 2, Internal Pacemaker, MRSA, Seizures *Have you ever received a pneumonia vaccine?: Yes *Have you received a flu vaccine this season?: Yes Other Medical History: Denies: Blood Transfusion Reaction Laterality Cases: Right: Arthroscopy Knee, Bilateral: Tonsillectomy Other Surgeries: Yes: Appendectomy, Other (back sx). No: Pacemaker Amputation: No Fractures: No - *Social History Smoking Status: Never smoker Alcohol Intake: never Alcohol Intake Frequency:: other Substance Use Type: denies use *Occupational Status:: other Housing: house Household Members: spouse *Travel in the last 8 weeks: None - Psychiatric History Pschychiatric History:: Reports:: Anxiety Family Hx:: Cancer
== END ==
PROVIDERS: PCP Family Medicine; Visit Provider Clinical Nurse Specialist Family Health
DX: M51.16 Intervertebral disc disorders with radiculopathy, lumbar region (principal); M96.1 Postlaminectomy syndrome, not elsewhere classified
CPT/HCPCS: 99212

== ENCOUNTER 2020-01-13 08:34 | Day surgery (SDC) | payer OTHER, SELFPAY ==
[2020-01-13 08:49] VITALS: BP 141/87; PULSE 95; RESP 18; O2SAT 97; BMI 29.0
[2020-01-13 09:32] VITALS: BP 103/79; PULSE 92; RESP 18; O2SAT 99
[2020-01-13 09:33] VITALS: BP 105/82; PULSE 92; RESP 18; O2SAT 99
--- NOTE | 2020-01-13 09:36 | HMH.PMPROC ---
- Procedure Date: 01/13/20 Time: 09:36 Anesthesiologist:: Brayan Eden MD Complications:: None Pre-procedure Diagnosis:: Degenerative disc disease of lumbar spine with lumbar radiculopathy symptoms and postlaminectomy syndrome of lumbar spine Post-procedure Diagnosis:: Same Indications for Procedure:: This patient is a pleasant 34-year-old white male who we have been treating for low back pain with lumbar radiculopathy symptoms and postlaminectomy syndrome lumbar spine. He recently had an injury approximately a month ago where he had some increasing pain in his low back especially on the right side. There is no new findings on MRI. He did have a [employer] stimulator in place which was reprogrammed today to help with his pain symptoms. We will also do a lumbar pleural steroid injection under fluoroscopy to help him with his pain symptoms. Procedure Details:: Lumbar epidural steroid injection under fluoroscopy Informed consent was obtained and the risk and benefits of the procedure was explained to the patient. The patient was taken to the procedure room. The patient was placed prone on the procedure table. The patient was prepped and draped in sterile fashion. C-arm fluoroscopy was used to view the lumbar spine. Skin and subcutaneous tissues were anesthetized using lidocaine. I placed an 18-gauge epidural needle and advanced into the L4-L5 interspace using fluoroscopic guidance and [id number] to air. After confirmation of needle placement in the epidural space with dye I injected 2 mL of lidocaine 1.5% with Depo-Medrol 80 mg. Patient tolerated the procedure well with no complications. Plan and Disposition:: We will follow-up with him in 2 weeks. Will reevaluate symptoms at that time.
[2020-01-13 09:40] VITALS: BP 124/84; PULSE 82; RESP 20; O2SAT 97
== END 2020-01-13 09:40 | disposition home or self-care (01) ==
LOC: SC.PAINP 08:34
PROVIDERS: PCP Family Medicine; Visit Provider Anesthesiology
DX: M51.16 Intervertebral disc disorders with radiculopathy, lumbar region (principal); M96.1 Postlaminectomy syndrome, not elsewhere classified; I49.9 Cardiac arrhythmia, unspecified; Z90.89 Acquired absence of other organs; Z87.39 Personal history of other diseases of the musculoskeletal system and connective tissue
CPT/HCPCS: 62323; J1040; Q9966

== ENCOUNTER → 2020-01-24 11:38 | Outpatient (POV) | payer OTHER, SELFPAY ==
[2020-01-24 12:05] VITALS: BP 120/78; PULSE 79; RESP 18; O2SAT 98; BMI 29.7
--- NOTE | 2020-01-24 12:29 | HMH.PAINSOAP ---
[facility] Pain Management SOAP Note Subjective:: Patient is a pleasant 34-year-old white male who we are treating for low back pain with lumbar radiculopathy symptoms and postlaminectomy syndrome he has a Medtronic stimulator which is working quite well for him he rates his pain a 3 out of 10. Patient is following up after lumbar epidural steroid injection. Patient has significantly improved over 80%. Patient will be starting a new position at work that will be less physically demanding. He would like to follow-up in several months. ROS General: no recent weight change, no fever, no sleep disturbances Respiratory: no cough, no shortness of air, no recurring pulmonary infections Cardiovascular/Peripheral Vascular: No chest pain, No palpitations, no edema, no shortness of breath. Gastrointestinal: no new onset incontinence, normal bowel movements reported Genitourinary: no new onset incontinence Musculoskeletal: Back pain, leg pain Psychiatric: normal mood/ affect Neurological: [denies new onset weakness in extremities], [denies new onset balance issues] Objective:: Physical Exam General: Alert and oriented x3, no acute distress, pleasant and cooperative, [on room air] Lungs: Resps E/U, Symmetrical chest expansion, Eyes: PERRL Musculoskeletal: Flexion and extension of lumbar spine somewhat guarded secondary to pain, deep tendon reflexes normal, strength in upper and lower extremities [5/5], antalgic gait noted Neurological: speech clear, acidity tester equal, no gross sensory deficits Assessment:: Degenerative disc disease lumbar spine lumbar radiculopathy and postlaminectomy syndrome Plan:: We will see the patient back in 4 months reassess his symptoms at that time he has been instructed to call the office if he has any issues prior to his next appointment. Dr. Eden has reviewed this note and agrees with this plan of care. This note was dictated using voice recognition software and may contain errors or omissions [facility] History I have reviewed the patient's past medical history: Yes Medical History: Reports:: Anxiety, Arrhythmia, Hypertension, Palpitations Denies:: Cancer, Diabetes Mellitus Type 1, Diabetes Mellitus Type 2, Internal Pacemaker, MRSA, Seizures *Have you ever received a pneumonia vaccine?: Yes *Have you received a flu vaccine this season?: Yes Other Medical History: Denies: Blood Transfusion Reaction Laterality Cases: Right: Arthroscopy Knee, Bilateral: Tonsillectomy Other Surgeries: Yes: Appendectomy, Other (back sx). No: Pacemaker Amputation: No Fractures: No - *Social History Smoking Status: Never smoker Alcohol Intake: never Alcohol Intake Frequency:: other Substance Use Type: denies use *Occupational Status:: other Housing: house Household Members: spouse *Travel in the last 8 weeks: None - Psychiatric History Pschychiatric History:: Reports:: Anxiety Family Hx:: Cancer
== END ==
PROVIDERS: PCP Family Medicine; Visit Provider Clinical Nurse Specialist Family Health
DX: M51.16 Intervertebral disc disorders with radiculopathy, lumbar region (principal); M96.1 Postlaminectomy syndrome, not elsewhere classified
CPT/HCPCS: 99212

== ENCOUNTER → 2020-03-01 14:10 | Outpatient (POV) | payer OTHER, SELFPAY ==
[2020-03-01 14:55] VITALS: BP 138/88; PULSE 85; RESP 18; TEMP 36.6; O2SAT 99; BMI 30.9
--- NOTE | 2020-03-01 15:44 | HMH.PAINSOAP ---
[facility] Pain Management SOAP Note Subjective:: Patient is a pleasant 34-year-old male who presents today for follow-up. He has been treated for low back pain with lumbar radiculopathy symptoms and postlaminectomy syndrome of lumbar spine. He does currently have a Medtronic stimulator to treat his pain. He is here today for programming. Patient does rate his pain a 3 out of 10 today. Says he is having some worsening pain lower extremities. Review of Systems General: No recent weight changes, no fever, no sleep disturbances Respiratory: No cough, no shortness of air, no recurring pulmonary infections Cardiovascular/peripheral vascular: No chest pain, no palpitations, no edema, no shortness of breath Gastrointestinal: No new onset incontinence, normal bowel movements reported Genitourinary: No new onset incontinence Musculoskeletal: Back pain, bilateral lower extremity pain Psychiatric: Normal mood/affect Neurological: [Denies weakness in extremities], [denies balance issues] Objective:: Physical exam General: Alert and oriented x3, no acute distress, pleasant and cooperative, [on room air] Lungs: Respirations even and unlabored, symmetrical chest expansion Eyes: PERRL Musculoskeletal: Flexion and extension of lumbar spine somewhat guarded secondary to pain, deep tendon reflexes normal, strength in upper and lower extremities [5/5], [abnormal gait noted] Neurological: Speech clear, die casting supervisor equal, no gross sensory deficit Assessment:: Degenerative disc disease lumbar spine with lumbar radiculopathy symptoms, postlaminectomy syndrome lumbar spine Plan:: Patient was reprogrammed today. He says this did help him with his pain. We will plan to see him back in the clinic in 1 month to reassess his symptoms. He has been instructed to contact the clinic if he has any concerns before his next appointment. The patient and I specifically discussed risk factors for COVID19. These risks include, but are not limited to age greater than 60, heart or lung disease, diabetes, immunosuppression, and travel. We also discussed NSAIDs may worsen COVID19 infection or symptoms. Patient should not use NSAIDs to treat COVID19 signs or symptoms. Patient was also informed that any type of corticosteroid of any form (oral or injection) will decrease the patient's immune system response and may increase the likelihood of COVID19 infection [address] symptoms[address]. Eden has reviewed this note and agrees with this plan of care. This note was dictated using voice recognition software and make contain errors or omissions. [facility] History I have reviewed the patient's past medical history: Yes Medical History: Reports:: Anxiety, Arrhythmia, Hypertension, Palpitations Denies:: Cancer, Diabetes Mellitus Type 1, Diabetes Mellitus Type 2, Internal Pacemaker, MRSA, Seizures *Have you ever received a pneumonia vaccine?: Yes *Have you received a flu vaccine this season?: Yes Other Medical History: Denies: Blood Transfusion Reaction Laterality Cases: Right: Arthroscopy Knee, Bilateral: Tonsillectomy Other Surgeries: Yes: Appendectomy, Other (back sx). No: Pacemaker Amputation: No Fractures: No - *Social History Smoking Status: Never smoker Alcohol Intake: never Alcohol Intake Frequency:: other Substance Use Type: denies use *Occupational Status:: other Housing: house Household Members: spouse *Travel in the last 8 weeks: None - Psychiatric History Pschychiatric History:: Reports:: Anxiety Family Hx:: Cancer
== END ==
PROVIDERS: PCP Family Medicine; Visit Provider Clinical Nurse Specialist Family Health
DX: M51.16 Intervertebral disc disorders with radiculopathy, lumbar region (principal); M96.1 Postlaminectomy syndrome, not elsewhere classified
CPT/HCPCS: 99212

== ENCOUNTER → 2020-03-29 12:55 | Outpatient (POV) | payer OTHER, SELFPAY ==
[2020-03-29 13:22] VITALS: BP 142/77; PULSE 74; RESP 18; TEMP 36.6; O2SAT 99; BMI 31.6
--- NOTE | 2020-03-29 13:34 | HMH.PAINSOAP ---
[facility] Pain Management SOAP Note Subjective:: Patient is a pleasant 34-year-old male who presents today for follow-up. He has been treated for low back pain with lumbar radiculopathy symptoms and postlaminectomy syndrome lumbar spine. He is meeting with the [employer] stimulator medical customer service representative for reprogramming today. Patient rates his pain a 4 out of 10. He is still having issues with sleeping on his back. He says he wakes up with severe pain in his low back area. He is currently on cyclobenzaprine, however, he says it is not working. Review of Systems General: No recent weight changes, no fever, no sleep disturbances Respiratory: No cough, no shortness of air, no recurring pulmonary infections Cardiovascular/peripheral vascular: No chest pain, no palpitations, no edema, no shortness of breath Gastrointestinal: No new onset incontinence, normal bowel movements reported Genitourinary: No new onset incontinence Musculoskeletal: Low back pain Psychiatric: Normal mood/affect Neurological: [Denies weakness in extremities], [denies balance issues] Objective:: Physical exam General: Alert and oriented x3, no acute distress, pleasant and cooperative, [on room air] Lungs: Respirations even and unlabored, symmetrical chest expansion Eyes: PERRL Musculoskeletal: Flexion and extension of lumbar spine somewhat guarded secondary to pain, deep tendon reflexes normal, strength in upper and lower extremities [5/5], [abnormal gait noted] Neurological: Speech clear, fan blade aligner equal, no gross sensory deficit Assessment:: Degenerative disc disease lumbar spine with lumbar radiculopathy symptoms, postlaminectomy syndrome lumbar spine Plan:: We we will stop the patient cyclobenzaprine and start him on tizanidine 4 mg 1 tablet p.o. twice daily. We will see him back in the clinic in a month to reassess his symptoms. He has been instructed to contact clinic if he has any concerns before his next appointment. The patient and I specifically discussed risk factors for COVID19. These risks include, but are not limited to age greater than 60, heart or lung disease, diabetes, immunosuppression, and travel. We also discussed NSAIDs may worsen COVID19 infection or symptoms. Patient should not use NSAIDs to treat COVID19 signs or symptoms. Patient was also informed that any type of corticosteroid of any form (oral or injection) will decrease the patient's immune system response and may increase the likelihood of COVID19 infection and symptoms[address] Eden has reviewed this note and agrees with this plan of care. This note was dictated using voice recognition software and make contain errors or omissions. [facility] History I have reviewed the patient's past medical history: Yes Medical History: Reports:: Anxiety, Arrhythmia, Hypertension, Palpitations Denies:: Cancer, Diabetes Mellitus Type 1, Diabetes Mellitus Type 2, Internal Pacemaker, MRSA, Seizures *Have you ever received a pneumonia vaccine?: Yes *Have you received a flu vaccine this season?: Yes Other Medical History: Denies: Blood Transfusion Reaction Laterality Cases: Right: Arthroscopy Knee, Bilateral: Tonsillectomy Other Surgeries: Yes: Appendectomy, Other (back sx). No: Pacemaker Amputation: No Fractures: No - *Social History Smoking Status: Never smoker Alcohol Intake: never Alcohol Intake Frequency:: other Substance Use Type: denies use *Occupational Status:: other Housing: house Household Members: spouse *Travel in the last 8 weeks: None - Psychiatric History Pschychiatric History:: Reports:: Anxiety Family Hx:: Cancer
== END ==
PROVIDERS: PCP Family Medicine; Visit Provider Clinical Nurse Specialist Family Health
DX: M51.16 Intervertebral disc disorders with radiculopathy, lumbar region (principal); M96.1 Postlaminectomy syndrome, not elsewhere classified
CPT/HCPCS: 99212

== ENCOUNTER → 2020-04-26 12:50 | Outpatient (POV) | payer OTHER, SELFPAY ==
[2020-04-26 12:59] VITALS: BP 126/77; PULSE 71; RESP 18; TEMP 36.6; O2SAT 98; BMI 33.2
--- NOTE | 2020-04-26 13:00 | HMH.PAINSOAP ---
[facility] Pain Management SOAP Note Subjective:: Patient is a pleasant 34-year-old white male who presents today for reprogramming. He does have a Medtronic spinal cord stimulator in place that he says gives him great relief. Patient recently started a different position at his current workplace and says that his pain is different at this time. He says that it has worsened in his low back, which increases when he bends forward. He rates his pain a 3 out of 10 when sitting. He was started on tizanidine at his last visit and says this has been helpful, however, it is not lasting long enough. Patient I did discuss increasing his tizanidine amount from 2 times a day to 3 times a day. He is in agreement with this. We will plan to reprogram the patient today to see if this helps. If the patient does not getting relief, we may need to possibly plan for medial branch/facet joint injections. Review of Systems General: No recent weight changes, no fever, no sleep disturbances Respiratory: No cough, no shortness of air, no recurring pulmonary infections Cardiovascular/peripheral vascular: No chest pain, no palpitations, no edema, no shortness of breath Gastrointestinal: No new onset incontinence, normal bowel movements reported Genitourinary: No new onset incontinence Musculoskeletal: Low back pain Psychiatric: Normal mood/affect Neurological: [Denies weakness in extremities], [denies balance issues] Objective:: Physical exam General: Alert and oriented x3, no acute distress, pleasant and cooperative, [on room air] Lungs: Respirations even and unlabored, symmetrical chest expansion Eyes: PERRL Musculoskeletal: Flexion and extension of lumbar spine somewhat guarded secondary to pain, deep tendon reflexes normal, strength in upper and lower extremities [5/5], [abnormal gait noted] Neurological: Speech clear, terrazzo tile maker equal, no gross sensory deficit Assessment:: Degenerative disc disease lumbar spine with lumbar radiculopathy symptoms, postlaminectomy syndrome lumbar spine Plan:: Patient was reprogrammed today. He is feeling better since having some reprogramming. We will increase patient's has anodyne to 4 mg 1 tablet p.o. 3 times daily. This has been beneficial for his pain. We will plan to see him back in the clinic in 1 month to reassess his symptoms. He has been instructed to contact the clinic if he has any concerns before his next appointment. The patient and I specifically discussed risk factors for COVID19. These risks include, but are not limited to age greater than 60, heart or lung disease, diabetes, immunosuppression, and travel. We also discussed NSAIDs may worsen COVID19 infection or symptoms. Patient should not use NSAIDs to treat COVID19 signs or symptoms. Patient was also informed that any type of corticosteroid of any form (oral or injection) will decrease the patient's immune system response and may increase the likelihood of COVID19 [address] Eden has reviewed this note and agrees with this plan of care. This note was dictated using voice recognition software and make contain errors or omissions. [facility] History I have reviewed the patient's past medical history: Yes Medical History: Reports:: Anxiety, Arrhythmia, Hypertension, Palpitations Denies:: Cancer, Diabetes Mellitus Type 1, Diabetes Mellitus Type 2, Internal Pacemaker, MRSA, Seizures *Have you ever received a pneumonia vaccine?: Yes *Have you received a flu vaccine this season?: Yes Other Medical History: Denies: Blood Transfusion Reaction Laterality Cases: Right: Arthroscopy Knee, Bilateral: Tonsillectomy Other Surgeries: Yes: Appendectomy, Other (back sx). No: Pacemaker Amputation: No Fractures: No - *Social History Smoking Status: Never smoker Alcohol Intake: never Alcohol Intake Frequency:: other Substance Use Type: denies use *Occupational Status:: other Housing: house Household Members: spouse *Travel in the last 8 weeks: Non
== END ==
PROVIDERS: PCP Family Medicine; Visit Provider Clinical Nurse Specialist Family Health
DX: M51.16 Intervertebral disc disorders with radiculopathy, lumbar region (principal); M96.1 Postlaminectomy syndrome, not elsewhere classified
CPT/HCPCS: 99212

== ENCOUNTER 2020-05-03 16:07 | Emergency (ER) | payer OTHER, SELFPAY ==
[2020-05-03 16:22] VITALS: BP 132/81; PULSE 76; RESP 19; TEMP 36.8; O2SAT 98; BMI 32.3
[2020-05-03 16:36] LABS: UTC Influenza A Antigen Negative (Negative)
[2020-05-03 16:37] LABS: UTC Influenza B Antigen Negative (Negative)
--- NOTE | 2020-05-03 16:50 | HMH.EDUTC ---
[facility] Disposition Clinical Impression: URI (upper respiratory infection) Qualifiers: URI type: unspecified URI Qualified Code(s): J06.9 - Acute upper respiratory infection, unspecified Disposition: Home, Self-Care Condition on Discharge: Good Instructions: Sore Throat, DI for Sinusitis, Sinusitis, DI for Cough -- Adult, Preventing the Spread of Coronavirus Discharge Instructions Additional Instructions: *Monitor Temp, Over the counter Motrin or Tylenol as directed/as needed Tylenol every 4 hours and Motrin every 6 hours (as long as your family doctor has told you that you can take it) for fever or pain. and straight to ER if unable to lower temp less than 101.0 after medication given *Warm salt water gargles may help to soothe the throat *Throat Lozenges *Warm fluids like tea with honey may help to soothe the throat *Sleep elevated *Humidifier/Vaporizer *Flonase 2 sprays in each nostril daily but be aware that it may take 2-3 days before you notice improvement Your throat swab was sent for culture. Those results are typically sent to your primary care. Be sure to follow up in 2-3 days with your family doctor/primary care physician if no improvement so they can review those result and treat if necessary. If you don?t have a primary care doctor, I recommend you get one but in the mean time, you will have to return to a walk in clinic Follow up IMMEDIATELY for new or worsening symptoms or no Noticeable improvement over the next 48-72 hours. 911 for difficulty breathing or swallowing You was tested for today for COVID19 your test result should be back within the next 48-72 hours, call back to the [facility] to see if your test results are back and the result You was given a handout with instructions for Self Quarantine and Self isolation for while you wait on test results and what to do if they are positive Prescriptions: methylPREDNISolone [Medrol 4mg tab] 4 mg PO DIRECTED #21 tab Transmission Status: Pending to Clinic [facility] Azithromycin [Z-Sam 250mg Tab] 250 mg PO DIRECTED #6 tab Transmission Status: Pending to Clinic Pharm[facility] Referrals: Mir Javier [Primary Care Provider] - As needed Forms: Work/School Release Time of Disposition: 16:57 Medical Decision Making - Jimbo Inquiry Pt receiving controlled substance: No Jimbo was queried for this patient: No Vital Signs: 05/03/20 16:22 Temperature 98.2 F Temperature Source Oral Pulse Rate [Right Brachial] 76 Respiratory Rate 19 Blood Pressure [Right Arm] 132/81 Blood Pressure Mean [Right Arm] 98 Blood Pressure Source [Right Arm] Automatic Cuff Blood Pressure Position [Right Arm] Sitting 02 Sat by Pulse Oximetry 98 Oxygen Delivery Method Room Air - Lab Data Lab results reviewed: Yes: I reviewed the patient's lab results. Lab Results 05/03/20 16:27: Influenza Type A Ag Negative, Influenza Type B Ag Negative 05/03/20 16:27: Strep Scn Rapid Clinic Negative Orders (Tests/Meds): ORDERS Category Date Time Status Covid-19 Nasal PCR Sendout [facility] Stat Lab 05/03/20 16:39 Received Strep Screen Confirmation Stat Micro 05/03/20 16:27 Received [facility] HPI - General Stated complaint: cough, sore throat, nasal drainage Time Seen by Provider: 05/03/20 16:50 Mode of Arrival: Ambulatory Source of Information: Patient Limitations: No Limitations Description of Symptoms (Recalled from Triage Doc. by RN): PATIENT C/O COUGH, CHEST AND SINUS PRESSURE, AND SORE THROAT SINCE THIS MORNING HEENT Symptoms (Recalled from RN notes): No Resp Symptoms (Recalled from RN notes): No Skin Symptoms (Recalled from RN notes): No MS Symptoms (Recalled from RN notes): No Functional Status (Recalled from RN notes): WNL - History of Present Illness Provider Complaint: Patient states that he has been having sinus pain and pressure along with sore throat, cough and congestion States that he feels like it is trying to move into his chest area and wanted to come in a
[2020-05-03 17:01] VITALS: BP 132/81; PULSE 76; RESP 19; TEMP 36.8; O2SAT 98
[2020-05-05 18:13] LABS: Covid-19 Nasal PCR Sendout Lex NOT DETECTED
[2020-05-05 20:14] LABS: UTC Strep Screen (Rapid) Negative (Negative)
== END 2020-05-03 17:07 | disposition home or self-care (01) ==
PROVIDERS: Emergency Provider Nurse Practitioner; PCP Family Medicine
DX: J06.9 Acute upper respiratory infection, unspecified (principal); Z20.828 Contact with and (suspected) exposure to other viral communicable diseases; I10 Essential (primary) hypertension; Z79.899 Other long term (current) drug therapy
CPT/HCPCS: 87804; 87880; 99202; U0004

== ENCOUNTER → 2020-07-09 10:19 | Outpatient (POV) | payer OTHER, SELFPAY ==
[2020-07-09 10:38] VITALS: BP 135/85; PULSE 85; RESP 18; O2SAT 98; BMI 31.1
--- NOTE | 2020-07-09 10:54 | HMH.PAINSOAP ---
[facility] Pain Management SOAP Note Subjective:: Patient is a pleasant 34-year-old white male who presents today for follow-up. Patient has a Medtronic spinal cord stimulator in place. Patient does well he has increased his work and has been able to tolerate it well. He rates the pain a 4 out of 10 today. He denies any current issues. He did meet with the asset protection representative today. ROS General: no recent weight change, no fever, no sleep disturbances Respiratory: no cough, no shortness of air, no recurring pulmonary infections Cardiovascular/Peripheral Vascular: No chest pain, No palpitations, no edema, no shortness of breath. Gastrointestinal: no new onset incontinence, normal bowel movements reported Genitourinary: no new onset incontinence Musculoskeletal: Back pain, leg pain Psychiatric: normal mood/ affect Neurological: [denies new onset weakness in extremities], [denies new onset balance issues] Objective:: Physical Exam General: Alert and oriented x3, no acute distress, pleasant and cooperative, [on room air] Lungs: Resps E/U, Symmetrical chest expansion, Eyes: PERRL Musculoskeletal: Flexion and extension of lumbar spine somewhat guarded secondary to pain, deep tendon reflexes normal, strength in upper and lower extremities [5/5], slightly antalgic gait noted Neurological: speech clear, pantographer equal, no gross sensory deficits Assessment:: Degenerative disc disease lumbar spine lumbar radiculopathy symptoms, postlaminectomy syndrome lumbar spine Plan:: We will see the patient back in 6 months. Patient has been instructed to call the office if he has any issues prior to his next appointment. Dr. Eden has reviewed this note and agrees with this plan of care. This note was dictated using voice recognition software and may contain errors or omissions [facility] History I have reviewed the patient's past medical history: Yes Medical History: Reports:: Anxiety, Arrhythmia, Hypertension, Palpitations Denies:: Cancer, Diabetes Mellitus Type 1, Diabetes Mellitus Type 2, Internal Pacemaker, MRSA, Seizures *Have you ever received a pneumonia vaccine?: Yes *Have you received a flu vaccine this season?: Yes Other Medical History: Denies: Blood Transfusion Reaction Laterality Cases: Right: Arthroscopy Knee, Bilateral: Tonsillectomy Other Surgeries: Yes: Appendectomy, Other (back sx). No: Pacemaker Amputation: No Fractures: No - *Social History Smoking Status: Never smoker Alcohol Intake: never Alcohol Intake Frequency:: other Substance Use Type: denies use *Occupational Status:: other Housing: house Household Members: spouse *Travel in the last 8 weeks: None - Psychiatric History Pschychiatric History:: Reports:: Anxiety Family Hx:: Cancer
== END ==
PROVIDERS: PCP Family Medicine; Visit Provider Clinical Nurse Specialist Family Health
DX: M96.1 Postlaminectomy syndrome, not elsewhere classified (principal); M51.16 Intervertebral disc disorders with radiculopathy, lumbar region
CPT/HCPCS: 99212

== ENCOUNTER 2020-08-31 15:04 | Emergency (ER) | payer OTHER, SELFPAY ==
[2020-08-31 15:15] VITALS: BP 144/82; PULSE 82; RESP 19; TEMP 37; O2SAT 97; BMI 30.3
--- NOTE | 2020-08-31 15:31 | HMH.EDUTC ---
[facility] [place] Impression: Exposure to COVID-19 virus Disposition: Home, Self-Care Condition on Discharge: Good Additional Instructions: You have been tested for COVID19. Please isolate yourself as if you are positive until test results received. Prescriptions: Ondansetron [Ondansetron Odt 8mg Tab] 8 mg PO TID PRN 5 Days #20 tab PRN Reason: Nausea Transmission Status: Pending to [facility] Referrals: Mir Javier [Primary Care Provider] - Time of Disposition: 15:38 Medical Decision Making - Jimbo Inquiry Pt receiving controlled substance: No Orders (Tests/Meds): ORDERS Category Date Time Status Covid-19 Nasal PCR ([facility]) Routine Lab 08/31/20 15:19 [place] [facility] [place] - General Stated complaint: Chest congestion,wants Covid test Time Seen by Provider: 08/31/20 15:31 - History of Present Illness Provider Complaint: Sudden onset headache, chest congestion, chills, body aches, nausea since this am. Exposed to COVID19 on 08/27. Onset (ago): day(s) (1) Location: head, chest Relieving factors: none Exacerbating factors: none Associated symptoms: cough, malaise, nausea/vomiting Treatments prior to arrival: none - Related Data Home Medications Medication Instructions Recorded Confirmed alprazolam 0.5 mg tablet 0.5 mg PO DAILY tab 11/26/17 05/24/20 lisinopril 10 mg tablet 10 mg PO DAILY tab 11/26/17 05/24/20 Amitriptyline HCl [Elavil 25mg 25 mg PO DAILY 05/03/20 05/24/20 tablet] Chlorzoxazone 500 mg PO TID 05/03/20 05/24/20 Diclofenac Sodium [Diclofenac 75mg 75 mg PO BID 05/03/20 05/24/20 Tab] Omeprazole [Omeprazole 20mg 20 mg PO DAILY 05/03/20 05/24/20 Capsule] atenoloL [Atenolol 25mg Tab] 25 mg PO DAILY 05/03/20 05/24/20 Previous Rx's Medication Instructions Recorded Azithromycin [Z-Sam 250mg Tab] 250 mg PO DIRECTED #6 tab 05/03/20 methylPREDNISolone [Medrol 4mg 4 mg PO DIRECTED #21 tab 05/03/20 tab] Ondansetron [Ondansetron Odt 8mg 8 mg PO TID PRN 5 Days #20 tab 08/31/20 Tab] Allergies Allergy/AdvReac Type Severity Reaction Status Date / Time Penicillins [PENICILLINS] Allergy Intermediate I-RASH Verified 05/24/20 15:17 [facility] History - Hepatitis A Screen Attestation statement:: This patient has been screened for Hepatitis A risk factors. I have reviewed the patient's past medical history: Yes Medical History: Reports:: Anxiety, Arrhythmia, Hypertension, Palpitations Denies:: Cancer, Diabetes Mellitus Type 1, Diabetes Mellitus Type 2, Internal Pacemaker, MRSA, Seizures Other Medical History: Denies: Blood Transfusion Reaction Comment: Illnesses hypertension, tacky arrhythmia, GERD, anxiety, chronic back pain Laterality Cases: Right: Arthroscopy Knee, Bilateral: Tonsillectomy Other Surgeries: Yes: Appendectomy, Other (back sx). No: Pacemaker Amputation: No Fractures: No Comment: Operations, right knee arthroscopy, tonsillectomy, appendectomy, lumbar back surgery, pain simulator in - Social History Smoking Status: Never smoker Alcohol Intake: never Alcohol Intake Frequency:: other Substance Use Type: denies use Occupational Status: other Housing: house Household Members: spouse - Psychiatric History Pschychiatric History:: Reports:: Anxiety Family Hx:: Cancer ROS Obtained: Yes All systems reviewed & no additional complaints - Constitutional Constitutional: Reports body ache, Reports chills, Reports fatigue, Reports headache(s) - Respiratory Respiratory: Reports chest congestion Physical Exam - General General appearance: alert, in no apparent distress - Head Head exam: normocephalic - Eye Eye exam: Present: PERRL - ENT ENT exam: Present: normal oropharynx, TM's normal bilaterally - Chest Chest inspection: Present: normal inspection - Respiratory Respiratory exam: Present: normal lung sounds bilaterally. Absent: respiratory distress, wheezes - Cardiovascular Cardiovascular
[2020-08-31 15:48] VITALS: BP 142/82; PULSE 82; RESP 19; TEMP 37; O2SAT 97
== END 2020-08-31 15:50 | disposition home or self-care (01) ==
PROVIDERS: Emergency Provider Physician Assistant; PCP Family Medicine
DX: Z20.822 Contact with and (suspected) exposure to COVID-19 (principal); R53.1 Weakness; R05 Cough; R51.9 Headache, unspecified; I10 Essential (primary) hypertension; K21.9 Gastro-esophageal reflux disease without esophagitis; Z79.899 Other long term (current) drug therapy; Z88.0 Allergy status to penicillin
CPT/HCPCS: 99202; G0463; U0003

== ENCOUNTER → 2020-10-25 10:42 | Outpatient (POV) | payer OTHER, SELFPAY ==
--- NOTE | 2020-10-25 12:05 | HMH.PAINSOAP ---
[facility] Pain Management SOAP Note Subjective:: Patient is a pleasant 34-year-old white male who presents today for follow-up. Patient has a [employer] spinal cord stimulator and is doing well with this he rates his pain a 4 out of 10 most of his pain is in his right hip. Patient is having difficulty with motion and movement. We will get an x-ray and send him to orthopedics for evaluation. Patient had injections in the past with no relief. ROS General: no recent weight change, no fever, no sleep disturbances Respiratory: no cough, no shortness of air, no recurring pulmonary infections Cardiovascular/Peripheral Vascular: No chest pain, No palpitations, no edema, no shortness of breath. Gastrointestinal: no new onset incontinence, normal bowel movements reported Genitourinary: no new onset incontinence Musculoskeletal: Right hip pain Psychiatric: normal mood/ affect Neurological: [denies new onset weakness in extremities], [denies new onset balance issues] Objective:: Physical Exam General: Alert and oriented x3, no acute distress, pleasant and cooperative, [on room air] Lungs: Resps E/U, Symmetrical chest expansion, Eyes: PERRL Musculoskeletal: Flexion and extension of lumbar spine somewhat guarded secondary to pain, deep tendon reflexes normal, strength in upper and lower extremities [5/5], [abnormal gait noted] Neurological: speech clear, fire watcher equal, no gross sensory deficits Assessment:: Degenerative disc disease lumbar spine lumbar postlaminectomy syndrome, right hip pain Plan:: We will schedule the patient for a right X ray and send him to Dr. Russell for consultation. I will follow-up with him after this reassess his symptoms at that time he has been instructed to call the office if he has any issues he is on anti-inflammatories he has failed intra-articular hip injections. Dr. Eden has reviewed this note and agrees with this plan of care. This note was dictated using voice recognition software and may contain errors or omissions [facility] History I have reviewed the patient's past medical history: Yes Medical History: Reports:: Anxiety, Arrhythmia, Hypertension, Palpitations Denies:: Cancer, Diabetes Mellitus Type 1, Diabetes Mellitus Type 2, Internal Pacemaker, MRSA, Seizures *Have you ever received a pneumonia vaccine?: Yes *Have you received a flu vaccine this season?: Yes Other Medical History: Denies: Blood Transfusion Reaction Laterality Cases: Right: Arthroscopy Knee, Bilateral: Tonsillectomy Other Surgeries: Yes: Appendectomy, Other (back sx). No: Pacemaker Amputation: No Fractures: No - *Social History Smoking Status: Never smoker Alcohol Intake: never Alcohol Intake Frequency:: other Substance Use Type: denies use *Occupational Status:: other Housing: house Household Members: spouse *Travel in the last 8 weeks: None - Psychiatric History Pschychiatric History:: Reports:: Anxiety Family Hx:: Cancer
[2020-10-25 12:09] VITALS: BP 125/71; PULSE 71; RESP 18; O2SAT 99; BMI 30.4
== END ==
PROVIDERS: PCP Family Medicine; Visit Provider Clinical Nurse Specialist Family Health
DX: M51.36 Other intervertebral disc degeneration, lumbar region (principal); M96.1 Postlaminectomy syndrome, not elsewhere classified; M25.551 Pain in right hip
CPT/HCPCS: 99212; G0463

== ENCOUNTER → 2020-10-31 08:41 | Outpatient (CLI) | payer OTHER, SELFPAY ==
--- NOTE | 2020-10-31 08:48 | XR_ITS ---
PROCEDURE: XR HIP RT 2-3V W/PELVIS CLINICAL INDICATION: HIP PAIN COMPARISON: CR XR HIP RT 2-3V W/PELVIS from 07/01/2019 FINDINGS: No fracture or dislocation is evident. No significant degenerative change. No lytic or blastic change. Unremarkable soft tissues. Incidental note made of a small os acetabulum IMPRESSION: Negative right hip Dictated by: Cam Taveras MD 10/31/2020 09:21 Cma Taveras MD in [place] 10/31/2020 09:21
== END ==
PROVIDERS: PCP Family Medicine; Visit Provider Clinical Nurse Specialist Family Health
DX: M25.551 Pain in right hip (principal)
CPT/HCPCS: 73502

== ENCOUNTER 2021-03-14 14:00 | Outpatient (RCR) | payer OTHER, SELFPAY | END 2021-03-14 15:10 | disposition home or self-care (01) | LOC: PT 14:00 | PROVIDERS: PCP Family Medicine; Visit Provider Orthopaedic Surgery Adult Reconstructive Orthopaedic Surgery | DX: M76.11 Psoas tendinitis, right hip (principal); S73.191D Other sprain of right hip, subsequent encounter | CPT/HCPCS: 97010; 97014; 97110; 97163; 97164; G0283 ==

== ENCOUNTER → 2021-03-14 14:40 | Outpatient (POV) | payer OTHER, SELFPAY ==
[2021-03-14 14:53] VITALS: BP 127/70; RESP 18; O2SAT 97; BMI 30.9
--- NOTE | 2021-03-14 14:55 | HMH.PAINSOAP ---
[facility] Pain Management SOAP Note Subjective:: Patient is a pleasant 35-year-old white male who presents today for follow-up and reprogramming of his [employer] spinal cord stimulator. He is rating his pain today a 6 out of 10. He states approximately 2 weeks ago a box fell and hit the center of his back. After which he had increased pain in the back. He was concerned that there may be damage to his spinal cord stimulator. The patient did reach out to the [employer] telephone service representative in regards to reprogramming. The patient was not seen by urgent care or the emergency room following his injury. The pain is improved since his initial injury however he is having some lingering discomfort in the center of his low back. The patient is not currently prescribed controlled substances from our office. His Jimbo number is [phone] he has an active morphine equivalent of 0. Review of Systems General: No recent weight changes, no fever, no sleep disturbances Respiratory: No cough, no shortness of air, no recurring pulmonary infections Cardiovascular/peripheral vascular: No chest pain, no palpitations, no edema, no shortness of breath Gastrointestinal: No new onset incontinence, normal bowel movements reported Genitourinary: No new onset incontinence Musculoskeletal: Low back pain Psychiatric: [Normal mood/affect] Neurological: [Denies weakness in extremities], [denies balance issues] Objective:: Physical exam General: Alert and oriented x3 no acute distress, pleasant and cooperative, [on room air] Lungs: Respirations even and unlabored, symmetrical chest expansion Eyes: PERRL Musculoskeletal: Flexion and extension of the lumbar spine nonguarded, deep tendon reflexes normal, strength in upper and lower extremities 5 out of 5 normal gait noted Neurological: Speech clear, substitute school 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 We can notify the patient of his x-ray results once available. He is meeting with the [employer] telephone service representative today for reprogramming. We can follow-up with the patient as needed. Dr. Eden has reviewed this note and agrees with this plan of care. This note was dictated using voice recognition software and make contain errors or omissions. [facility] History Medical History: Reports:: Anxiety, Arrhythmia, Hypertension, Palpitations Denies:: Cancer, Diabetes Mellitus Type 1, Diabetes Mellitus Type 2, Internal Pacemaker, MRSA, Seizures *Have you ever received a pneumonia vaccine?: Yes *Have you received a flu vaccine this season?: Yes Other Medical History: Denies: Blood Transfusion Reaction Laterality Cases: Right: Arthroscopy Knee, Bilateral: Tonsillectomy Other Surgeries: Yes: Appendectomy, Other (back sx). No: Pacemaker Amputation: No Fractures: No - *Social History Smoking Status: Never smoker Alcohol Intake: never Alcohol Intake Frequency:: other Substance Use Type: denies use *Occupational Status:: employed Housing: house Household Members: spouse *Travel in the last 8 weeks: None - Psychiatric History Pschychiatric History:: Reports:: Anxiety Family Hx:: Cancer
== END ==
PROVIDERS: Visit Provider Family Medicine
DX: M51.36 Other intervertebral disc degeneration, lumbar region (principal); M96.1 Postlaminectomy syndrome, not elsewhere classified; M25.551 Pain in right hip
CPT/HCPCS: 99212; G0463

== ENCOUNTER → 2021-03-14 15:21 | Outpatient (CLI) | payer OTHER, SELFPAY ==
--- NOTE | 2021-03-14 15:24 | XR_ITS ---
PROCEDURE: XR LUMBAR SPINE MIN 4V CLINICAL INDICATION: BACK PAIN COMPARISON: No exams were available for comparison FINDINGS: Normal alignment. No fracture or dislocation. No lytic or blastic change. The disc spaces are well preserved. Epidural stimulator device is present entering the thecal sac posteriorly at the T12-L1 level with the cephalad tip at the T10 level. Unremarkable appearing SI joints. Other findings:None. IMPRESSION: No acute finding. Negative lumbar spine. Epidural stimulator device present Dictated by: Cam Taveras MD 03/14/2021 15:43 Cam Taveras MD in [place] 03/14/2021 15:43
== END ==
PROVIDERS: PCP Family Medicine; Visit Provider Clinical Nurse Specialist Family Health
DX: M54.5 Low back pain (principal)
CPT/HCPCS: 72110

== ENCOUNTER → 2021-05-14 09:49 | Outpatient (CLI) | payer OTHER, SELFPAY ==
--- NOTE | 2021-05-14 09:52 | MR_ITS ---
PROCEDURE INFORMATION: Exam: MR Right Lower Extremity Joint Without Contrast; Hip Exam date and time: 05/14/2021 9:52 AM Age: 35 years old Clinical indication: Right; Patient HX: RT hip pain. Unable to stand for long periods. No injury or trauma. Prior x-ray 10-31-20; Additional info: Tear of right acetabular labrum TECHNIQUE: Imaging protocol: MR of the Right lower extremity joint without contrast. Exam focused on the hip. COMPARISON: CR XR HIP RT 2-3V W/PELVIS 10/31/2020 8:51 AM FINDINGS: Bones and cartilage: No dislocation of the right hip joint. No significant acute marrow edema, acute fracture, or avascular necrosis involving the right hip. Joint spaces: Minimal right and small left hip joint effusions. Labrum: Evaluation of the hip labrum is limited on this study. There is a focus of increased T2 signal intensity within the anterior superior aspect of the labrum, concerning for a labral cleft or tear. TENDONS: Tendons of iliopsoas group: Unremarkable. No evidence of tear. Tendons of medial compartment of thigh: No evidence of tear. Tendons of lateral rotators of hip: No evidence of tear. Tendons of gluteal group: Minimal STIR hyperintensity adjacent to the right greater trochanter as well as the right gluteus medius and minimus tendons. Gluteal tendinopathy is suggested. Minimal STIR hyperintensity adjacent to the distal attachment of the left gluteus medius tendon, consistent with tendinopathy or partial tear. Muscles: No visualized acute abnormality. Soft tissues: See above. Bowel: Mild fecal distention of the rectum. Intraperitoneal space: Trace free fluid within the pelvis. Reproductive: Evaluation of the prostate is limited on this study, without significant prostate enlargement. IMPRESSION: 1. Minimal STIR hyperintensity adjacent to the right greater trochanter as well as the right gluteus medius and minimus tendons. Gluteal tendinopathy is suggested. 2. Tendinopathy or partial tear of the left gluteus medius tendon. 3. There is a focus of increased T2 signal intensity within the anterior superior aspect of the labrum, concerning for a labral cleft or tear. This can be further evaluated with arthrography. 4. Minimal right and small left hip joint effusions. 5. Trace free fluid within the pelvis. 6. Additional findings described above.
== END ==
PROVIDERS: PCP Family Medicine; Visit Provider Physician Assistant Surgical
DX: S73.191D Other sprain of right hip, subsequent encounter (principal)
CPT/HCPCS: 73721

== ENCOUNTER 2022-01-08 17:00 | Outpatient (RCR) | payer OTHER, SELFPAY | END 2022-01-08 17:05 | disposition home or self-care (01) | LOC: PT 17:00 | PROVIDERS: PCP Family Medicine; Visit Provider Orthopaedic Surgery Adult Reconstructive Orthopaedic Surgery | DX: M25.551 Pain in right hip (principal); M25.851 Other specified joint disorders, right hip; Z98.890 Other specified postprocedural states | CPT/HCPCS: 97010; 97014; 97110; 97163; 97164; 97530; G0283 ==

== ENCOUNTER → 2022-03-13 08:27 | Outpatient (POV) | payer OTHER, SELFPAY ==
[2022-03-13 08:49] VITALS: BP 138/91; PULSE 78; RESP 20; O2SAT 98; BMI 30.2
--- NOTE | 2022-03-13 09:18 | HMH.PAINSOAP ---
[facility] Pain Management SOAP Note Subjective:: Patient is a pleasant 36-year-old male who presents today for follow-up. Patient is currently being treated for degenerative disc disease of the lumbar spine, postlaminectomy syndrome, chronic right hip pain. Patient has a [employer] spinal cord stimulator that has been providing significant relief. Patient presents today because he started having right lower extremity pain last Thursday. He denies any recent falls or traumas. 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 He cannot tolerate any prolonged activities such as sitting, standing, and walking. He states that he has woken up at night in pain. In October, he saw an orthopedic provider who did a right hip arthroscopy. He has done well since this procedure. For pain, he takes Tylenol, Diclofenac 75mg BID, Chlorzoxazone. These are only providing minimal relief. Rates pain today as 02/16. Jimbo [phone], MEQ 0. Review of Systems: General: No recent weight changes, no fever, no sleep disturbances Respiratory: No cough, no shortness of air, no recurring pulmonary infections Cardiovascular/peripheral vascular: No chest pain, no palpitations, no edema, no shortness of breath Gastrointestinal: No new onset incontinence, normal bowel movements reported Genitourinary: No new onset incontinence Musculoskeletal: Right hip pain Psychiatric: [Normal mood/affect] Neurological: [Denies weakness in extremities], [denies balance issues] Objective:: Physical Exam: General: Alert and oriented x3, no acute distress, pleasant and cooperative Lungs: Respirations even and unlabored, symmetrical chest expansion Eyes: PERRL Musculoskeletal: Flexion and extension of lumbar [spine] somewhat guarded secondary to pain, [antalgic gait noted]; right SI is positive for JOHNSON, [place]'s, [place]'s, [place]'s, compression, and distraction. Tender to palpation around the right greater trochanteric bursa Neurological: Speech clear, no gross sensory deficit Assessment:: Degenerative disc disease of lumbar spine with lumbar discopathy symptoms, postlaminectomy syndrome, sacroiliitis, greater trochanteric bursitis Plan:: Patient presents today with right hip pain that started last Thursday. He cannot tolerate any prolonged activities such as sitting, standing, and walking. He has point of tenderness around the right SI joint and right greater trochanteric bursa. I will start this patient on prednisone 20 mg twice a day for 5 days. He is to continue taking his diclofenac, Tylenol, chlorzoxazone. We will follow this patient in 2 weeks. If he is still having considerable pain, will consider scheduling this patient for a right SI injection and right greater trochanteric bursa injections. A [employer] containers sales representative is also here today due to reprogram the patient. Patient has been instructed to contact the clinic with any concerns before the next appointment. Dr. Eden has reviewed this note and agrees with this plan of care. This note was dictated using voice recognition software and make contain errors or omissions. [facility] History Medical History: Reports:: Anxiety, Arrhythmia, Hypertension, Palpitations Denies:: Cancer, Diabetes Mellitus Type 1, Diabetes Mellitus Type 2, Internal Pacemaker, MRSA, Seizures *Have you ever received a pneumonia vaccine?: No *Have you received a flu vaccine this season?: No Other Medical History: Denies: Blood Transfusion Reaction Laterality Cases: Right: Arthroscopy Knee, Bilateral: Tonsillectomy Other Surgeries: Yes: Appendectomy, Other (back sx). No: Pacemaker Amputation: No Fractures: No - *Social History Smoking Status: Never smoker Alcohol Intake: never Alcohol Intake Frequency:: other Substance Use Type: denies use *Occupational Status:: employed Housing: house Household Members: spouse *Travel in the last 8 weeks: None - Psychiatric History Pschychiatric History:: Reports:: Anxiety Family Hx:: Cancer
== END ==
PROVIDERS: PCP Family Medicine; Visit Provider Nurse Practitioner Family
DX: M51.16 Intervertebral disc disorders with radiculopathy, lumbar region (principal); M46.1 Sacroiliitis, not elsewhere classified; M96.1 Postlaminectomy syndrome, not elsewhere classified; M70.61 Trochanteric bursitis, right hip
CPT/HCPCS: 99212; G0463

== ENCOUNTER → 2022-03-27 08:47 | Outpatient (POV) | payer OTHER, SELFPAY ==
[2022-03-27 09:01] VITALS: BP 143/93; PULSE 73; RESP 20; BMI 30.3
--- NOTE | 2022-03-27 09:26 | HMH.PAINSOAP ---
[facility] Pain Management SOAP Note Subjective:: Patient is a pleasant 36-year-old male who presents today for follow-up. Patient is currently being treated for degenerative disc disease of the lumbar spine, postlaminectomy syndrome, chronic right hip pain, sacroiliitis, greater trochanteric bursitis. When I last saw this patient about 2 weeks ago, he was complaining of right hip pain that started about 5 days prior to his appointment. After evaluation, patient does have right-sided sacroiliitis and right-sided greater trochanteric bursitis. At that time, patient is not interested in moving forward with injective therapy. I started the patient on low-dose prednisone. I also discussed with the patient to continue taking his diclofenac, Tylenol, chlorzoxazone to help with the pain. Additionally, the [employer] rep was also here that day to reprogram his stimulator. Even with all of these, patient continues to have increasing right hip pain. He says that he has been having trouble with work. He cannot tolerate any prolonged sitting, standing, and walking. He also has been having trouble with driving since he cannot find a comfortable position. Last night, patient says that he had to sit on an ice pack for about an hour to help with his pain. He rates his pain today as 9 out of 10. For pain, he continues to take his Tylenol, diclofenac 75 mg twice a day and chlorzoxazone. Jimbo [phone] with an active morphine equivalent of 0. In October 2021, he saw an orthopedic provider who did a right hip arthroscopy. He has done well since this procedure. Review of Systems: General: No recent weight changes, no fever, no sleep disturbances Respiratory: No cough, no shortness of air, no recurring pulmonary infections Cardiovascular/peripheral vascular: No chest pain, no palpitations, no edema, no shortness of breath Gastrointestinal: No new onset incontinence, normal bowel movements reported Genitourinary: No new onset incontinence Musculoskeletal: Right hip pain Psychiatric: [Normal mood/affect] Neurological: [Denies weakness in extremities], [denies balance issues] Objective:: Physical Exam: General: Alert and oriented x3, no acute distress, pleasant and cooperative Lungs: Respirations even and unlabored, symmetrical chest expansion Eyes: PERRL Musculoskeletal: Flexion and extension of lumbar [spine] somewhat guarded secondary to pain, [antalgic gait noted]; right SI positive for JOHNSON, [place]'s, [place]'s, [place]'s, compression, and distraction. Tender to palpation right greater trochanteric bursa Neurological: Speech clear, no gross sensory deficit Assessment:: Right-sided sacroiliitis, right-sided greater trochanteric bursitis, degenerative disc disease of the lumbar spine, postlaminectomy syndrome Plan:: Patient presents today with continuing right hip pain for about 2 and half weeks now. I have tried this patient on low-dose steroid for a week that provided minimal relief. Patient also had a recent reprogramming by the [employer] for a stimulator. This did not help his pain as well. Today, patient is still photographer around the right SI joint and right greater trochanteric bursa. Patient does have positive right SI exam. I discussed with the patient that he would benefit from injective therapy. He does agree. Patient has tried and failed conservative therapy in the past such as PT and home exercises for > 6 weeks. He is not interested in redoing his PT since it aggravated his symptoms then. We will schedule this patient for a right SI injection and right greater trochanteric bursa injection. Patient has been instructed to contact the clinic with any concerns before the next appointment. Dr. Eden has reviewed this note and agrees with this plan of care. This note was dictated using voice recognition software and make contain errors or omissions. [facility] History Medical History: Reports:: Anxiety, Arrhythmia, Hypertension, Palpitations Denies:: Cancer,
== END ==
PROVIDERS: PCP Family Medicine; Visit Provider Student in an Organized Health Care Education/Training Program
DX: M51.36 Other intervertebral disc degeneration, lumbar region (principal); M46.1 Sacroiliitis, not elsewhere classified; M70.61 Trochanteric bursitis, right hip; M96.1 Postlaminectomy syndrome, not elsewhere classified
CPT/HCPCS: 99212; G0463

== ENCOUNTER 2022-03-28 12:28 | Day surgery (SDC) | payer OTHER, SELFPAY ==
[2022-03-28 12:41] VITALS: BP 140/82; PULSE 68; RESP 20; TEMP 36.9; O2SAT 97; BMI 30.3
[2022-03-28 12:52] VITALS: BP 121/88; PULSE 62; RESP 20; O2SAT 98
--- NOTE | 2022-03-28 13:06 | P.PCN_ITS ---
- Procedure Date: 03/28/22 Time: 13:07 Anesthesiologist:: Haile Spicer CRNA Complications:: None Pre-procedure Diagnosis:: Right sacroiliitis. Right trochanteric bursitis. Post-procedure Diagnosis:: Same Indications for Procedure:: This patient is a pleasant 36-year-old male who presents today for right SI joint injection as well as right trochanteric bursa injection. Patient has e xtreme point tenderness over each area. He rates his pain 8/10. Procedure Details:: Procedure: Right trochanteric bursa injection under fluoroscopy We then moved to the right trochanteric bursa.~ C-arm fluoroscopy was used to view the left greater trochanter.~ The skin and subcutaneous tissues overlying the right greater trochanter were anesthetized using lidocaine, 1.5% and a 25- gauge needle.~ After this, a 22-gauge spinal needle was inserted and advanced until it contacted the right greater trochanter.~ Dye was injected and good spread was seen throughout the right trochanteric bursa. After this, approximately 5 mL of bupivacaine, 0.25% and Depo-Medrol, 40 mg was incrementally injected into the right right trochanteric bursa.~ The patient tolerated the procedure well with no complications. Procedure: Right sacroliliac joint injection under fluoroscopy Informed consent was obtained and the risk and benefits of the procedure were explained to the patient.~ The patient was taken to the procedure room and noninvasive monitors were placed including noninvasive blood pressure cuff and pulse oximeter.~ The patient was placed prone on the procedure table.~ The~ right hip was cleansed using Betadine as a cleansing solution.~ C-arm fluorosocpy was used to view the right SI joint.~ The skin and subcutaneous tissues were anesthetized using Lidocaine 1.5% and a 25-gauge needle.~ After this, a 22-gauge spinal needle was inserted under fluoroscopic guidance into the inferior aspect of the right SI joint.~ Omnipaque dye was injected and a good spread was seen throughout the joint.~ After this, approximately 5 mL of bupivacaine 0.25% and Depo-Medrol 40 mg was incrementally injected into the sacroiliac joint.~ The patient tolerated the procedure well with no complications.~ The patient was observed in the Pain Clinic, then discharged home neurologically intact.~ Plan and Disposition:: Patient was reevaluated 10 minutes post procedure. He reports 90% improvement terms of his right posterior hip pain as well as right lateral leg pain.
== END 2022-03-28 12:53 | disposition home or self-care (01) ==
LOC: SC.PAINP 12:29
PROVIDERS: PCP Family Medicine; Visit Provider Nurse Anesthetist, Certified Registered
DX: M46.1 Sacroiliitis, not elsewhere classified (principal); M70.61 Trochanteric bursitis, right hip
CPT/HCPCS: 20610; 27096; 77002; G0260; J1040

== ENCOUNTER → 2022-04-09 13:52 | Outpatient (POV) | payer OTHER, SELFPAY ==
[2022-04-09 14:47] VITALS: BP 145/78; PULSE 76; RESP 20; TEMP 36.5; O2SAT 97; BMI 30.3
--- NOTE | 2022-04-09 15:51 | A.OFFVIS_ITS ---
[facility] Pain Management SOAP Note Subjective:: Patient is a pleasant 36-year-old male who presents today for follow-up of right trochanteric bursa and right SI injection on 03/28/2022. We are currently treating the patient for degenerative disc disease of lumbar spine with lumbar radiculopathy symptoms, postlaminectomy syndrome, chronic hip pain, greater trochanteric bursitis, sacroiliitis. Patient states he had 60% improvement lasting 3 to 4 days following this injection. Today he rates his pain a 7 out of 10 and states the pain is primarily in his mid to low back. Patient denies any new trauma or injury to the site. Patient is managed with alprazolam 0.5 mg twice a day by Dr. Mir Javier. Patient has used [id number] Tylenol and ibuprofen as needed with minimal improvement of his symptoms. His Jimob is [id number]. Its been reviewed and appropriate. Review of Systems: General: No recent weight changes, no fever, no sleep disturbances Respiratory: No cough, no shortness of air, no recurring pulmonary infections Cardiovascular/peripheral vascular: No chest pain, no palpitations, no edema, no shortness of breath Gastrointestinal: No new onset incontinence, normal bowel movements reported Genitourinary: No new onset incontinence Musculoskeletal: Low back pain, mid back pain Psychiatric: [Normal mood/affect] Neurological: [Denies weakness in extremities], [denies balance issues] Objective:: Physical Exam: General: Alert and oriented x3, no acute distress, pleasant and cooperative Lungs: Respirations even and unlabored, symmetrical chest expansion Eyes: PERRL Musculoskeletal: Flexion and extension of lumbar [spine] somewhat guarded secondary to pain, [antalgic gait noted] Neurological: Speech clear, no gross sensory deficit Assessment:: Degenerative disc disease of lumbar spine with lumbar radiculopathy symptoms, postlaminectomy syndrome, chronic hip pain, greater trochanteric bursitis, sacroiliitis Plan:: Patient still has significant pain along his mid to low back at today's visit. He did have a [employer] telephone sales representative present at today's visit and was reprogrammed. His stimulator was adjusted to include programs for his hip and back. He will follow-up with the [employer] telephone sales representative in 1 month. I have discussed with the patient regarding possibly having epidural injections to help with his pain. Risk and benefits were discussed with the patient. At this time we will wait until his follow-up visit before scheduling this injection. Patient would like to see whether he gets improvement following the reprogramming of his stimulator. Patient will return to clinic in 1 month for follow-up and reevaluation of symptoms. Patient has been instructed to contact the clinic with any concerns before the next appointment. Dr. Eden has reviewed this note and agrees with this plan of care. This note was dictated using voice recognition software and make contain errors or omissions. PFSH PFSH Social History Smoking Status: Never smoker second hand exposure: No alcohol intake: never substance use type: denies use current occupational status: other household members: spouse housing: house current occupation: [employer] current occupational exposures/hazards: No caffeine: Yes
== END ==
PROVIDERS: PCP Family Medicine; Visit Provider Nurse Practitioner Family
DX: M51.16 Intervertebral disc disorders with radiculopathy, lumbar region (principal); M46.1 Sacroiliitis, not elsewhere classified; M96.1 Postlaminectomy syndrome, not elsewhere classified; G89.29 Other chronic pain; M70.60 Trochanteric bursitis, unspecified hip
CPT/HCPCS: 62368; 99212; G0463

== ENCOUNTER → 2022-04-21 14:32 | Outpatient (POV) | payer OTHER, SELFPAY ==
--- NOTE | 2022-04-21 15:43 | EXP.PAIN.SOA ---
[facility] Pain Management SOAP Note Subjective:: Patient is a pleasant 36-year-old who presents today for follow-up. We are currently treating the patient for degenerative disc disease of lumbar spine with lumbar radiculopathy symptoms, postlaminectomy syndrome, chronic hip pain, greater trochanteric bursitis, sacroiliitis. Today the patient rates his pain a 8 out of 10. He states the pain is primarily in his low back that radiates into bilateral extremities. He describes this as a aching, throbbing sensation that is worse with increased activity. Patient states he had an episode Thursday night that was a 10 out of 10. He stated he tried the reprogramming [employer] GI however it did not provide any improvement. He also used Tylenol and ice packs that did eventually lead to some relief. Patient denies any new trauma or injury to the site. Patient is currently managed with alprazolam 0.5 mg twice a day by Dr. Mir Javier. He also is prescribed diclofenac that he states does give some improvement of his symptoms. His Jimbo is [id number]. It has been reviewed and appropriate. Review of Systems: General: No recent weight changes, no fever, no sleep disturbances Respiratory: No cough, no shortness of air, no recurring pulmonary infections Cardiovascular/peripheral vascular: No chest pain, no palpitations, no edema, no shortness of breath Gastrointestinal: No new onset incontinence, normal bowel movements reported Genitourinary: No new onset incontinence Musculoskeletal: [Low back pain, bilateral leg pain] Psychiatric: [Normal mood/affect] Neurological: [Denies weakness in extremities], [denies balance issues] Objective:: Physical Exam: General: Alert and oriented x3, no acute distress, pleasant and cooperative Lungs: Respirations even and unlabored, symmetrical chest expansion Eyes: PERRL Musculoskeletal: Flexion and extension of lumbar [spine] somewhat guarded secondary to pain, [antalgic gait noted] Neurological: Speech clear, no gross sensory deficit Assessment:: Degenerative disc disease of lumbar spine with lumbar radiculopathy symptoms, postlaminectomy syndrome, chronic hip pain, greater trochanteric bursitis, sacroiliitis Plan:: Patient is experiencing significant pain in his low back that radiates into his bilateral lower extremities. I have discussed with the patient about a lumbar epidural. Risk and benefits were discussed with the patient. He would like to proceed forward with this injection. He is not currently on any blood thinners. I will also order the patient updated imaging of lumbar MRI without contrast due to his worsening symptoms. His last MRI was March 2021. Patient has tried and failed conservative measures such as oral medications, injective therapy, at home exercises and stretching for longer than 6 weeks. We will schedule the patient for a lumbar epidural steroid injection of L4-L5 at today's visit. Patient has been instructed to contact the clinic with any concerns before the next appointment. Dr. Eden has reviewed this note and agrees with this plan of care. This note was dictated using voice recognition software and make contain errors or omissions. [facility] Social History (Updated 04/09/22 @ 15:59 by Helene Fournier APRN) Smoking Status: Never smoker second hand exposure: No alcohol intake: never substance use type: denies use current occupational status: employed Travel in the last 8 weeks: None household members: spouse housing: house current occupation: [employer] current occupational exposures/hazards: No caffeine: Yes
[2022-04-21 15:44] VITALS: BP 123/67; PULSE 82; RESP 18; TEMP 36.3; O2SAT 96; BMI 30.3
== END ==
PROVIDERS: Visit Provider Nurse Practitioner Family
DX: M51.16 Intervertebral disc disorders with radiculopathy, lumbar region (principal); M96.1 Postlaminectomy syndrome, not elsewhere classified; M70.61 Trochanteric bursitis, right hip; M70.62 Trochanteric bursitis, left hip; M46.1 Sacroiliitis, not elsewhere classified
CPT/HCPCS: 99212; G0463

== ENCOUNTER → 2022-04-29 08:37 | Outpatient (CLI) | payer OTHER, SELFPAY ==
--- NOTE | 2022-04-29 08:40 | MR_ITS ---
FINAL REPORT CLINICAL HISTORY: LOW BACK PAIN COMPARISON: 12/23/2019 FINDINGS: Multiplanar MR imaging of the lumbar spine was performed without contrast. On the sagittal T2-weighted images, there is abnormal decreased signal at L4-5. Magnetic artifact is seen in the soft tissues posterior to the L4-5 level. The vertebrae are of normal height. The vertebral alignment is normal. L1-2: There is no significant canal stenosis or neural foraminal narrowing. L2-3: There is no significant canal stenosis or neural foraminal narrowing. L3-4: There is no significant canal stenosis or neural foraminal narrowing. L4-5: Moderate diffuse disc bulge is present. There is an annular tear in the posterior annulus with [id number]-ua-rtvoxavn spinal canal compromise. There is moderate bilateral neural foraminal narrowing. L5-S1: There is no significant canal stenosis or neural foraminal narrowing. IMPRESSION: Diffuse disc bulge at L4-5 with mild to moderate spinal and moderate bilateral neural foraminal narrowing. Reviewed, Interpreted and Dictated by Harish Caputo MD Transcribed by Adri Kruger Authenticated and [facility]
== END ==
PROVIDERS: PCP Family Medicine; Visit Provider Nurse Practitioner Family
DX: M54.50 Low back pain, unspecified (principal)
CPT/HCPCS: 72148; 76376

== ENCOUNTER → 2022-05-07 13:31 | Outpatient (POV) | payer OTHER, SELFPAY ==
[2022-05-07 14:13] VITALS: BP 149/95; PULSE 67; RESP 18; TEMP 37.1; O2SAT 98; BMI 30.3
--- NOTE | 2022-05-07 14:40 | EXP.PAIN.SOA ---
[facility] Pain Management SOAP Note Subjective:: Patient is a pleasant 36-year-old male who presents today for follow-up from insurance denial of a lumbar epidural steroid injection. We are currently treating the patient for degenerative disc disease of lumbar spine with lumbar radiculopathy symptoms, postlaminectomy syndrome, chronic hip pain, greater trochanteric bursitis, sacroiliitis. Today the patient rates his pain a 6 out of 10. He states the pain is all in his low back that radiates into his bilateral lower extremities. Patient denies any new trauma or injury. He describes this as an aching, throbbing sensation that is worse with increased activity. He states this affects his activities of daily living. He does use Tylenol [id number]-[id number] as needed along with ice packs however this does not provide significant improvement. He is currently managed with alprazolam 0.5 mg twice a day by Dr. Mir Javier. He also uses diclofenac 75 mg twice daily that provides some improvement of his symptoms. Patient has seen physical therapy in the past however it made his symptoms worse. Patient states he has chronic back pain and had back surgery in 2018. His Jimbo is [id number]. It is been reviewed and appropriate. Review of Systems: General: No recent weight changes, no fever, no sleep disturbances Respiratory: No cough, no shortness of air, no recurring pulmonary infections Cardiovascular/peripheral vascular: No chest pain, no palpitations, no edema, no shortness of breath Gastrointestinal: No new onset incontinence, normal bowel movements reported Genitourinary: No new onset incontinence Musculoskeletal: Low back pain, bilateral leg pain Psychiatric: [Normal mood/affect] Neurological: [Denies weakness in extremities], [denies balance issues] Objective:: Physical Exam: General: Alert and oriented x3, no acute distress, pleasant and cooperative Lungs: Respirations even and unlabored, symmetrical chest expansion Eyes: PERRL Musculoskeletal: Flexion and extension of lumbar [spine] somewhat guarded secondary to pain, [antalgic gait noted] Neurological: Speech clear, no gross sensory deficit FINDINGS: Multiplanar MR imaging of the lumbar spine was performed without contrast. On the sagittal T2-weighted images, there is abnormal decreased signal at L4-5.? Magnetic artifact is seen in the soft tissues posterior to the L4-5 level.? The vertebrae are of normal height. The vertebral alignment is normal.? ? L1-2: There is no significant canal stenosis or neural foraminal narrowing. L2-3: There is no significant canal stenosis or neural foraminal narrowing.? L3-4: There is no significant canal stenosis or neural foraminal narrowing.? L4-5:? Moderate diffuse disc bulge is present.? There is an annular tear in the posterior annulus with [id number] spinal canal compromise.? There is moderate bilateral neural foraminal narrowing.? L5-S1: There is no significant canal stenosis or neural foraminal narrowing. IMPRESSION: Diffuse disc bulge at L4-5 with mild to moderate spinal and moderate bilateral neural foraminal narrowing. Reviewed, Interpreted and Dictated by Harish Caputo MD Transcribed by Adri Kruger Authenticated and [facility] Assessment:: Degenerative disc disease of lumbar spine with lumbar radiculopathy symptoms, postlaminectomy syndrome, chronic hip pain, greater trochanteric bursitis, sacroiliitis Plan:: Patient is experiencing significant pain in his low back that radiates into his bilateral lower extremities. He had limited range of motion of his lumbar spine during today's visit. Patient's MRI showed diffuse disc bulge at L4-5 with mild to moderate spinal and moderate bilateral neuroforaminal narrowing. Patient has tried and failed oral medications, heat and ice, physical therapy and at home stretching and exercise for longer than 6 weeks. We will send a new referr
== END ==
PROVIDERS: Visit Provider Nurse Practitioner Family
DX: M51.16 Intervertebral disc disorders with radiculopathy, lumbar region (principal); M46.1 Sacroiliitis, not elsewhere classified; M96.1 Postlaminectomy syndrome, not elsewhere classified; M70.60 Trochanteric bursitis, unspecified hip
CPT/HCPCS: 99212; G0463

== ENCOUNTER → 2022-05-15 14:36 | Outpatient (POV) | payer OTHER, SELFPAY ==
[2022-05-15 14:45] VITALS: BP 135/71; PULSE 88; RESP 18; TEMP 36.6; O2SAT 98; BMI 32.3
--- NOTE | 2022-05-15 14:50 | EXP.PAIN.SOA ---
[facility] Pain Management SOAP Note Subjective:: Patient is a pleasant 36-year-old who presents today for follow-up. We are currently treating the patient for degenerative disc disease of lumbar spine with lumbar radiculopathy symptoms, postlaminectomy syndrome, chronic hip pain, greater trochanteric bursitis, sacroiliitis. Today the patient rates his pain a 7 out of 10. He states the pain is in his low back and radiates into his lower extremities. Patient denies any new trauma or injury. He denies any change in location or type of pain he experiences. Patient states he does have a very demanding job where he is on his feet for long hours and this causes significant increase in his pain symptoms. Patient does use Tylenol as needed and ice however it does not provide significant improvement of his symptoms. He is currently taking diclofenac 75 mg twice a day that he states provides some improvement. He is also on alprazolam 0.5 mg twice a day by Dr. Mir Javier. Patient has started physical therapy and has been to his initial visit. Patient states that they mention about focusing on more traction exercises to help with his chronic back pain. Patient did have back surgery in 2018/2019. Patient has also been prescribed compounding cream however he states he has not noticed significant improvement as of yet. Patient does have a [employer] spinal cord stimulator in place that does provide some improvement of his symptoms. He is scheduled to see a [employer] medical office representative today in office and see about reprogramming his device to target more of his pain area. He is scheduled for a lumbar epidural of L4-L5 on May 20. His Jimbo is [id number]. It has been reviewed and appropriate. Review of Systems: General: No recent weight changes, no fever, no sleep disturbances Respiratory: No cough, no shortness of air, no recurring pulmonary infections Cardiovascular/peripheral vascular: No chest pain, no palpitations, no edema, no shortness of breath Gastrointestinal: No new onset incontinence, normal bowel movements reported Genitourinary: No new onset incontinence Musculoskeletal: [Low back pain, bilateral leg pain] Psychiatric: [Normal mood/affect] Neurological: [Denies weakness in extremities], [denies balance issues] Objective:: Physical Exam: General: Alert and oriented x3, no acute distress, pleasant and cooperative Lungs: Respirations even and unlabored, symmetrical chest expansion Eyes: PERRL Musculoskeletal: Flexion and extension of lumbar [spine] somewhat guarded secondary to pain, [antalgic gait noted] Neurological: Speech clear, no gross sensory deficit Assessment:: Degenerative disc disease of lumbar spine with lumbar radiculopathy symptoms, postlaminectomy syndrome, chronic hip pain, greater trochanteric bursitis, sacroiliitis Plan:: Patient continues to have significant pain in his low back that radiates into his bilateral lower extremities. Patient did have limited range of motion of his lumbar spine during today's visit. Patient was saw by the [employer] medical office representative who was able to reprogram his device in office. Patient is already scheduled for a LESI on May 20. I have counseled the patient to continue using his compounding cream as prescribed and see if it does improve his symptoms over time. Patient will be continuing physical therapy following his lumbar epidural injection. I will send in a refill of his diclofenac 75 mg twice daily and provide a 3-month supply of this medication. We will follow-up with the patient after this injection with reevaluation of his symptoms. Patient has been instructed to contact the clinic with any concerns before the next appointment. Dr. Eden has reviewed this note and agrees with this plan of care. This note was dictated using voice recognition software and make contain errors or omissions. [facility] Social History (Updated 04/09/22 @ 15:59 by Helene Fournier APRN) Smoking Status: Never smoker second ernandez
== END | disposition home or self-care (01) ==
PROVIDERS: Visit Provider Nurse Practitioner Family
DX: M51.16 Intervertebral disc disorders with radiculopathy, lumbar region (principal); M46.1 Sacroiliitis, not elsewhere classified; M96.1 Postlaminectomy syndrome, not elsewhere classified; M70.60 Trochanteric bursitis, unspecified hip
CPT/HCPCS: 99212; G0463

== ENCOUNTER 2022-05-20 14:32 | Day surgery (SDC) | payer OTHER, SELFPAY ==
[2022-05-20 14:38] VITALS: BP 111/70; PULSE 73; RESP 16; TEMP 36.8; O2SAT 98; BMI 30.9
[2022-05-20 15:04] VITALS: BP 121/73; PULSE 74; RESP 18; O2SAT 98
[2022-05-20 15:12] VITALS: BP 110/74; PULSE 60; RESP 18; O2SAT 99
--- NOTE | 2022-05-20 15:24 | P.PCN_ITS ---
Procedure Date: 05/20/22 Time: 15:00 Anesthesiologist:: Haile Spicer CRNA Complications:: None Pre-procedure Diagnosis:: Degenerative disc disease lumbar spine multilevels. Lumbar radiculopathy. Post-procedure Diagnosis:: Same. Indications for Procedure:: Patient is a pleasant 36-year-old male that comes our clinic today for lumbar epidural steroid injection L4-5 level. Patient complains of low back pain as well as bilateral hip and leg radicular symptoms. Patient rates his pain 02/16 Procedure Details:: Procedure: Lumbar epidural steroid injection under fluoroscopy Informed consent was obtained and the risks and benefits of the procedure were explained to the patient. The patient was taken to the procedure room and noninvasive monitors placed, including noninvasive blood pressure cuff and pulse oximeter. The back was viewed using C-arm Fluoroscopy and prepped using Betadine as a cleansing solution and the L4-L5 interspace was palpated. Skin and subcutaneous tissues were anesthetized using lidocaine 1.5% and a 25-gauge nee dle. After this, an 18-gauge Touhy epidural needle was placed into the L4-L5 interspace and advanced using fluoroscopic guidance and loss of resistance to air until the epidural space was encountered. After confirmation of needle placement in the epidural space, with dye, a solution containing lidocaine 1.5%, 4 mL and Depo-Medrol 80 mg were incrementally injected into the lumbar epidural space. The patient tolerated the procedure well with no complications. The patient was observed in the Pain Clinic and then discharged home neurologically intact. Plan and Disposition:: Patient was discharged without incident
== END 2022-05-20 15:12 | disposition home or self-care (01) ==
LOC: SC.PAINP 14:32
PROVIDERS: PCP Nurse Practitioner Family; Visit Provider Nurse Anesthetist, Certified Registered
DX: M51.16 Intervertebral disc disorders with radiculopathy, lumbar region (principal); M46.1 Sacroiliitis, not elsewhere classified; M70.60 Trochanteric bursitis, unspecified hip; M96.1 Postlaminectomy syndrome, not elsewhere classified
CPT/HCPCS: 62323; J1040

== ENCOUNTER → 2022-05-28 07:30 | Outpatient (CLI) | payer OTHER, SELFPAY ==
--- NOTE | 2022-05-28 07:31 | CA_ITS ---
FINAL REPORT CLINICAL HISTORY: HTN/abnl ecg FINDINGS: Aorta velocity: 126 cm/sec Right kidney: 12.3 cm. No evidence of hydronephrosis or mass. Right intrarenal RI: 0.62 Right renal artery velocity: 131 cm/sec. Right RAR (Renal artery-Aortic Ratio): 1.03 Left Kidney: 12.5 cm. No evidence of hydronephrosis or mass. Left intrarenal RI: 0.59 Left renal artery velocity: 164 cm/sec. Left RAR (Renal Artery-Aortic Ratio): 1.29 IMPRESSION: No evidence of significant renal artery stenosis. CT angiogram or postcontrast MR angiogram would be more sensitive for evaluation of possible renal artery stenosis. Reviewed, Interpreted and Dictated by Ashu Melton III, MD Transcribed by Gladys Fox Authenticated and [facility]
--- NOTE | 2022-05-28 08:24 | US_ITS ---
FINAL REPORT TECHNIQUE: Ultrasound imaging of the kidneys was obtained. CLINICAL HISTORY: hypertension FINDINGS: The right kidney measures 11.5 cm in [id number]-[id number] length. There is no hydronephrosis, mass or stone. Cortical echogenicity and cortical thickness are within normal limits. The left kidney measures 11.5 cm in exid-yh-wehs length. There is no hydronephrosis, mass or stone. Cortical echogenicity and cortical thickness are within normal limits. IMPRESSION: Unremarkable exam. Reviewed, Interpreted and Dictated by Ashu Melton III, MD Transcribed by Gladys Fox Authenticated and [facility]
== END ==
PROVIDERS: PCP Nurse Practitioner Family; Visit Provider Physician Assistant
DX: I10 Essential (primary) hypertension (principal); R94.31 Abnormal electrocardiogram [ECG] [EKG]; E66.9 Obesity, unspecified; Z68.31 Body mass index [BMI] 31.0-31.9, adult
CPT/HCPCS: 76770; 93306; 93976

== ENCOUNTER 2022-05-30 09:00 | Outpatient (RCR) | payer OTHER, SELFPAY ==
--- NOTE | 2022-05-14 11:24 | HMH.PTOPEV ---
PT Outpatient Evaluation Rehab PT Outpatient Evaluation Start: 05/14/22 10:44 Freq: Status: Active Protocol: Document 05/14/22 11:14 ALEKS (Rec: 05/14/22 11:24 ALEKS [id number]) E-signed By Edward Lopez, PT Outpatient Therapy Subjective History Subjective History Pt reports h/o chronic LBP for multiple years, most recent exacerbation began ~1 month ago. Pt reports right sided LBP with radicular s/s down right LE to foot. Pt reports previous L4-5 microdiscectomy in 2017, lumbar spine pain stim. placement in 2018. Pt reports recent lumbar MRI has revealed L4-5 disc buldge again. PMH:right hip sx(labral excision) 10/29. Chief Complaint Pain,Paresthesia,Weakness Symptom Type Ache,Sharp,Dull,Stabbing, Numbness,Tingling Symptoms Relieved By Rest/Positioning,OTC Meds, Prescription Meds Symptoms Aggravated By Standing,Bending/Stooping, Physical Activity,Twisting, Lifting Prior Functional Limitations Lifting,Standing Current Functional Limitations Lifting,Housework,Sleeping, Standing,Walking,Bending/ Stooping Symptom Description Constant but Variable Level of pain today (0-10) 6 Pain scale - at its best (0-10) 6 Pain scale - at its worst (0-10) 9 Lumbopelvic Eval Posture Thoracic Spine Posture Standing Position Flattened Lumbar Spine Posture Standing Position Flattened Assistive device Assistive Devices None / NA Gait Observation General Gait Pattern Observation Antalgic Gait Palapation tenderness right lumbar spinal tenderness Yes: 4/4 paraspinal tenderness Yes: 3/4 buttock tenderness Yes: 3/4 Lumbar/Sacral Palpation Findings Tenderness,Trigger Point, Muscle Guarding Accessory Movement L-spine Vertebrae Accessory Movements [employer] [place] that Elicit Symptoms L2 bilateral L3 bilateral L4 bilateral L5 bilateral S1 bilateral Range of Motion Lumbar Spine Active Flexion Range of 5-20 Motion (degrees) Lumbar Spine Active Extension Range of +5 Motion (degrees) Left Lumbar Spine Lateral Flexion Active 0-20 Range of Motion (deg
== END 2022-05-30 09:05 | disposition home or self-care (01) ==
LOC: PT 09:00
PROVIDERS: PCP Family Medicine; Visit Provider Nurse Practitioner Family
DX: M54.50 Low back pain, unspecified (principal)
CPT/HCPCS: 97012; 97110; 97163; 97535

== ENCOUNTER → 2022-06-05 14:15 | Outpatient (POV) | payer OTHER, SELFPAY ==
--- NOTE | 2022-06-05 14:35 | EXP.PAIN.SOA ---
[facility] Pain Management SOAP Note Subjective:: Patient is a pleasant 36-year-old male who presents today for follow-up of lumbar epidural steroid injection at L4-L5 on 05/20/2022. We are currently treating the patient for degenerative disc disease of lumbar spine with lumbar radiculopathy symptoms, postlaminectomy syndrome, chronic hip pain, greater trochanteric bursitis, sacroiliitis. Today the patient states he has had at least 50% relief following this injection however it only lasted approximately a week and a half. Today the patient rates his pain a 6 out of 10. Patient denies any new trauma or injury. Patient states he is currently out of work due to several other health related issues. Patient states he does have a heart cath scheduled on Thursday. He is also scheduled for a EGD by Dr. Mccarthy at [facility] on July 31. Patient has recently been going to physical therapy however he was released at his last visit due to increased pressure and pain and pain starting to go down his left leg. Patient is prescribed compounding cream however he states he did not notice significant improvement with this. Patient does have a [employer] spinal cord stimulator in place. He recently was reprogrammed and did give some additional improvement. Patient does use [id number]-ird-[id number] Tylenol as needed and ice however minimal improvement is given with this. Patient is prescribed alprazolam 1 mg twice daily by Dr. Mir Javeir. Patient does have a history of back surgery in 2018/2018. His Jimbo is [id number]. It is been reviewed and appropriate. Review of Systems: General: No recent weight changes, no fever, no sleep disturbances Respiratory: No cough, no shortness of air, no recurring pulmonary infections Cardiovascular/peripheral vascular: No chest pain, no palpitations, no edema, no shortness of breath Gastrointestinal: No new onset incontinence, normal bowel movements reported Genitourinary: No new onset incontinence Musculoskeletal: Low back pain, leg pain Psychiatric: [Normal mood/affect] Neurological: [Denies weakness in extremities], [denies balance issues] Objective:: Physical Exam: General: Alert and oriented x3, no acute distress, pleasant and cooperative Lungs: Respirations even and unlabored, symmetrical chest expansion Eyes: PERRL Musculoskeletal: Flexion and extension of lumbar [spine] somewhat guarded secondary to pain, [antalgic gait noted] Neurological: Speech clear, no gross sensory deficit Assessment:: Degenerative disc disease of lumbar spine with lumbar radiculopathy symptoms, postlaminectomy syndrome, chronic hip pain, greater trochanteric bursitis, sacroiliitis Plan:: Patient continues to have significant pain in his low back that radiates into his lower extremities. Patient is scheduled for a heart cath next week. We will follow-up with the patient in 1 month. Patient will return to clinic in 1 month for reevaluation of symptoms. Patient has been instructed to contact the clinic with any concerns before the next appointment. Dr. Eden has reviewed this note and agrees with this plan of care. This note was dictated using voice recognition software and make contain errors or omissions. [facility] Medical History (Updated 06/05/22 @ 13:55 by Ashley Tyler RN) Abnormal electrocardiogram [ECG] [EKG] Abnormal result of cardiovascular function study Daytime somnolence Fatigue Snoring Systolic heart failure Social History Smoking Status: Never smoker second hand exposure: No alcohol intake: never substance use type: denies use current occupational status: employed Travel in the last 8 weeks: None household members: spouse housing: house current occupation: [employer] current occupational exposures/hazards: No caffeine: Yes
[2022-06-05 15:23] VITALS: BP 122/79; PULSE 76; RESP 18; TEMP 36.9; O2SAT 99; BMI 30.3
== END | disposition home or self-care (01) ==
PROVIDERS: PCP Nurse Practitioner Family; Visit Provider Nurse Practitioner Family
DX: M51.16 Intervertebral disc disorders with radiculopathy, lumbar region (principal); M96.1 Postlaminectomy syndrome, not elsewhere classified; M46.1 Sacroiliitis, not elsewhere classified; M70.60 Trochanteric bursitis, unspecified hip; Z79.899 Other long term (current) drug therapy
CPT/HCPCS: 99212; G0463

== ENCOUNTER 2022-06-09 07:56 | Day surgery (SDC) | payer OTHER, SELFPAY ==
[2022-06-09] VITALS (12 sets, daily range): BP systolic 102–156; BP diastolic 63–89; PULSE 74–84; RESP 20; TEMP 36.6; O2SAT 94–97; BMI 30.3
--- NOTE | 2022-06-09 07:45 | IR_ITS ---
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 COMPLICATIONS None Estimated Blood Loss: Less than 10 mls TECHNIQUE One percent lidocaine used to anesthetize the right anterior aspect of the wrist. The right radial artery was accessed via the Seldinger technique. A 6 Romansh sheath was placed in the right radial artery. 2.5 mg of verapamil, 800 mcg of nitroglycerin, 1mg Lidocaine and 5000 U Heparin were given through the arterial sheath. The papa catheter was also used to perform left heart catheterization, left ventriculogram and selective coronary angiogram. At the end of the procedure the sheath was removed good hemostasis was achieved using Traclet band, patient was transferred to the postop holding area in stable condition. ANGIOGRAPHIC RESULTS The left main artery Normal The left anterior descending artery Normal The circumflex artery Normal The right coronary artery Dominant normal The MCARTHUR ventriculogram reveals Preserved 55 to 60% The left ventricular end-diastolic pressure Less than 10 mmHg IMPRESSION Normal coronary arteries Preserved ejection fraction Normal left ventricular end-diastolic pressure PLAN 1. Medical management Electronically signed by : Alex Perez MD 06/09/2022 10:32:52
[2022-06-09 08:22] LABS: Chloride 99 mmol/L (98-107); Potassium 4.8 mmoL/L (3.5-5.1); Sodium 143 mmol/L (136-145)
[2022-06-09 08:24] LABS: Bilirubin,Unconjugated 0.7 mg/dL (0.0-1.1); Blood Urea Nitrogen 19 mg/dl (9-20); Creatinine Clearance Estimated 171 mL/min (50-200); Estimated Glomerular Filt Rate 97 ml/min (>60); GFR (African American) 117 ML/MIN (>60)
[2022-06-09 08:25] LABS: Alanine Aminotransferase 75 U/L (12-78); Albumin Level 5.3 g/dl (3.5-5.0); Alkaline Phosphatase 83 U/L (38-126); Anion Gap 18.8 mEq/L (5-15); Aspartate Amino Transferase 42 U/L (17-59); Basophils # 0.1 K/mm3 (0-0.2); Basophils % 0.7 % (0.1-2.0); Bilirubin,Direct 0.1 mg/dl (0.0-0.4); Bilirubin,Indirect 0.7 mg/dL (0.0-0.9); Bilirubin,Total 0.8 mg/dl (0.2-1.3); Calcium 9.6 mg/dl (8.4-10.2); Carbon Dioxide 30 mmol/L (22.0-30.0); Cholesterol 197 mg/dl (140-200); Eosinophils # 0.1 K/mm3 (0.0-0.4); Eosinophils % 1.8 % (0.1-12.0); Glucose 108 mg/dl (74-100); Hematocrit 45.2 % (42.0-52.0); Hemoglobin 15.2 g/dL (14.1-18.0); Lymphocytes # 1.5 K/mm3 (0.7-4.5); Lymphocytes % 21.3 % (10-50); Magnesium 2.2 mg/dl (1.6-2.3); Mean Corpuscular HGB Conc 33.7 g/dL (31.8-35.4); Mean Corpuscular Volume 92.1 fl (80-94); Mean Platelet Volume 7.9 fl (7.4-10.4); Monocytes # 0.5 K/mm3 (0.1-1.0); Monocytes % 6.9 % (1.7-9.3); Neutrophils # 4.8 K/mm3 (1.8-7.8); Neutrophils % 69.3 % (37.0-80.0); Platelet Count 334 K/mm3 (142-424); Red Blood Count 4.91 M/mm3 (4.60-6.20); Red Cell Distribution Width 13.2 % (11.5-17.5); Total Protein,Serum 8.2 g/dl (6.3-8.2); Triglycerides 141 mg/dl (30-150); VLDL Cholesterol 28 mg/dL (0-40)
[2022-06-09 08:26] LABS: Chol/HDL Ratio 6.6 (1-3.5); HDL Cholesterol 30 mg/dl (40-60)
[2022-06-09 08:36] LABS: Direct LDL Cholesterol 117.36 mg/dL (100-129)
[2022-06-09 08:56] LABS: Thyroid Stimulating Hormone 1.35 uIU/mL (0.465-4.68)
[2022-06-09 10:02] LABS: Free T4 (Free Thyroxine) 1.29 ng/dl (0.78-2.19)
== END 2022-06-09 13:40 | disposition home or self-care (01) ==
PROVIDERS: Physician Assistant; PCP Nurse Practitioner Family; Visit Provider Internal Medicine
DX: I11.0 Hypertensive heart disease with heart failure (principal); I50.20 Unspecified systolic (congestive) heart failure; R94.30 Abnormal result of cardiovascular function study, unspecified; R94.31 Abnormal electrocardiogram [ECG] [EKG]; I42.9 Cardiomyopathy, unspecified; Z79.899 Other long term (current) drug therapy
CPT/HCPCS: 36415; 80048; 80061; 80076; 83735; 84439; 84443; 85025; 93458; 99152; C1725; C1760; C1769; J1644; Q9967

== ENCOUNTER → 2022-06-19 10:16 | Outpatient (CLI) | payer OTHER, SELFPAY | PROVIDERS: PCP Nurse Practitioner Family; Visit Provider Physician Assistant | DX: G47.30 Sleep apnea, unspecified (principal); R06.02 Shortness of breath; R07.89 Other chest pain; R53.83 Other fatigue; R06.83 Snoring; R94.31 Abnormal electrocardiogram [ECG] [EKG] | CPT/HCPCS: G0399 ==

== ENCOUNTER → 2022-06-24 13:43 | Outpatient (CLI) | payer OTHER, SELFPAY | PROVIDERS: PCP Nurse Practitioner Family; Visit Provider Nurse Practitioner | DX: R07.89 Other chest pain (principal) | CPT/HCPCS: 93308 ==

== ENCOUNTER → 2022-07-31 10:08 | Outpatient (POV) | payer OTHER, SELFPAY ==
[2022-07-31 10:22] VITALS: BP 162/81; PULSE 71; RESP 18; O2SAT 98; BMI 29.0
--- NOTE | 2022-07-31 11:59 | EXP.PAIN.SOA ---
[facility] Pain Management SOAP Note Subjective:: Patient is a pleasant 36 yo male who presents today for follow up and reprogramming. Patient is currently being treated for degenerative disc disease of lumbar spine with lumbar radiculopathy symptoms, postlaminectomy syndrome, chronic hip pain, greater trochanteric bursitis, sacroiliitis. Patient also had a right hip surgery in October. He continues to have significant pain in his low back that radiates to his RLE. We have tried LESI, SI and GTB injections that all provided minimal relief. He has a [employer]tronic stim that has been reprogrammed. The rep is also coming today for reprogramming. More recently, he saw NSx at who is not recommending surgery at this time. They would like to continue conservative therapies such as injections (specifically Facet injecitons), PT, home exercises and oral meds. He rates his pain today as 6/10. He has been off work because of pain and they won't work around his physical capabilities. Jimbo has been reviewed and appropriate. Review of Systems: General: No recent weight changes, no fever, no sleep disturbances Respiratory: No cough, no shortness of air, no recurring pulmonary infections Cardiovascular/peripheral vascular: No chest pain, no palpitations, no edema, no shortness of breath Gastrointestinal: No new onset incontinence, normal bowel movements reported Genitourinary: No new onset incontinence Musculoskeletal: Low back pain Psychiatric: [Normal mood/affect] Neurological: [Denies weakness in extremities], [denies balance issues] Objective:: Physical Exam: General: Alert and oriented x3, no acute distress, pleasant and cooperative Lungs: Respirations even and unlabored, symmetrical chest expansion Eyes: PERRL Musculoskeletal: Flexion and extension of lumbar [spine] somewhat guarded secondary to pain, [antalgic gait noted] Neurological: Speech clear, no gross sensory deficit Assessment:: Degenerative disc disease of the lumbar spine with lumbar radiculopathy symptoms, postlaminectomy syndrome, chronic hip pain, GERD trochanteric bursitis, sacroiliitis Plan:: He is being followed by multiple specialties including hepatology/GI and Cardio. His rheumatology were also positive so he is waiting to be seen by rheum. At this time, we will hold off in any further injections until he meets with our specialties. For pain, will start patient on celebrex 100mg BID. He was tried on gabapentin in the past but could not tolerate it. Will start patient on Lyrica 75mg BID. Patient has been instructed to contact the clinic with any concerns before the next appointment. Dr. Eden has reviewed this note and agrees with this plan of care. This note was dictated using voice recognition software and make contain errors or omissions. [facility] Disclaimer: The information contained in this section may have been updated after the patient was seen, as this information can be updated by other users. Medical History Abnormal electrocardiogram [ECG] [EKG] Abnormal result of cardiovascular function study Daytime somnolence Fatigue Snoring Systolic heart failure Family History Other Family history non-contributory Social History Smoking Status: Never smoker second hand exposure: No alcohol intake: never substance use type: denies use current occupational status: other Travel in the last 8 weeks: None household members: spouse housing: house current occupation: [employer] current occupational exposures/hazards: No caffeine: Yes
== END | disposition home or self-care (01) ==
PROVIDERS: PCP Nurse Practitioner Family; Visit Provider Student in an Organized Health Care Education/Training Program
DX: M51.16 Intervertebral disc disorders with radiculopathy, lumbar region (principal); M96.1 Postlaminectomy syndrome, not elsewhere classified; M46.1 Sacroiliitis, not elsewhere classified; M70.60 Trochanteric bursitis, unspecified hip; M25.559 Pain in unspecified hip; G89.29 Other chronic pain
CPT/HCPCS: 99212; G0463

== ENCOUNTER → 2022-09-10 09:53 | Outpatient (POV) | payer OTHER, SELFPAY ==
--- NOTE | 2022-09-10 10:39 | EXP.PAIN.SOA ---
[facility] Pain Management SOAP Note Subjective:: Patient is a pleasant 36-year-old male who presents today for follow-up. We are currently treating the patient for degenerative disc disease of lumbar spine with lumbar radiculopathy symptoms, postlaminectomy syndrome, chronic hip pain, greater trochanteric bursitis, sacroiliitis. Today the patient rates his pain a 7 out of 10. Patient states that about 1-1/2 weeks ago he was folding laundry on his bed when he moved and had a loud popping sensation in his low back with radiating symptoms down his right leg. Patient states he has been experiencing increased pain following this episode and states he cannot tolerate prolonged standing, walking due to the pain. Patient frequently has to take multiple breaks to sit down and tries to elevate his right extremity. Patient does state this pain can be random but is often triggered with increasing activity. Patient denies any symptoms along the left side. Patient states he is currently off work because they were unable to work with his restrictions given by his doctor's office. Patient states he is trying for disability as well. Patient is continuing to go to physical therapy in [place] and states he had been doing well with this up until this popping sensation. Patient was recently started on Celebrex 100 mg twice daily however he states he has not noticed significant improvement at this point. Patient was also prescribed Lyrica 75 mg twice daily however this was not covered by his insurance. Patient does have a [employer]tronic spinal cord stimulator in place and states occasionally this will provide additional improvement. Patient does take kwwk-jew-lygbaul Tylenol as needed and is managed with alprazolam 1 mg twice a day from an outside provider. His Jimbo is [id number]. Its been reviewed and appropriate. Review of Systems: General: No recent weight changes, no fever, no sleep disturbances Respiratory: No cough, no shortness of air, no recurring pulmonary infections Cardiovascular/peripheral vascular: No chest pain, no palpitations, no edema, no shortness of breath Gastrointestinal: No new onset incontinence, normal bowel movements reported Genitourinary: No new onset incontinence Musculoskeletal: Low back pain, right leg pain Psychiatric: [Normal mood/affect] Neurological: [Denies weakness in extremities], [denies balance issues] Objective:: Physical Exam: General: Alert and oriented x3, no acute distress, pleasant and cooperative Lungs: Respirations even and unlabored, symmetrical chest expansion Eyes: PERRL Musculoskeletal: Flexion and extension of lumbar [spine] somewhat guarded secondary to pain, [antalgic gait noted] Neurological: Speech clear, no gross sensory deficit ORT score updated with low risk Assessment:: Degenerative disc disease of lumbar spine with lumbar radiculopathy symptoms, postlaminectomy syndrome, chronic hip pain, greater trochanteric bursitis, sacroiliitis Plan:: Patient is experiencing worsening pain in his low back with radiating symptoms into his legs. Patient did have limited range of motion of his lumbar spine during today's visit. I will order a MRI without contrast of his lumbar spine. I will also refill the patient's Celebrex 100 mg twice daily and send in a low-dose gabapentin 100 mg at bedtime and provide a 14-day supply of this medication. Patient will return to clinic following his imaging for reevaluation of symptoms and plan of care. Patient has been instructed to contact the clinic with any concerns before the next appointment. Dr. Eden has reviewed this note and agrees with this plan of care. This note was dictated using voice recognition software and make contain errors or omissions. [facility] Disclaimer: The information contained in this section may have been updated after the patient was seen, as this information can be updated by other users. Medical History (Updated 08/13/22 @ 14:25 by Sylvie Luna MD) Abnormal e
[2022-09-10 10:45] VITALS: BP 134/92; PULSE 89; RESP 18; O2SAT 97; BMI 29.0
== END | disposition home or self-care (01) ==
PROVIDERS: PCP Nurse Practitioner Family; Visit Provider Nurse Practitioner Family
DX: M51.16 Intervertebral disc disorders with radiculopathy, lumbar region (principal); M96.1 Postlaminectomy syndrome, not elsewhere classified; M25.559 Pain in unspecified hip; M70.60 Trochanteric bursitis, unspecified hip; M46.1 Sacroiliitis, not elsewhere classified
CPT/HCPCS: 99212; G0463

== ENCOUNTER → 2022-09-16 14:05 | Outpatient (CLI) | payer OTHER, SELFPAY ==
--- NOTE | 2022-09-16 14:09 | MR_ITS ---
FINAL REPORT CLINICAL HISTORY: WORSENING LOWER BACK PAIN. [place] a pop in back. right leg pain with numbness and tingling. FINDINGS: Multiplanar MR imaging of the lumbar spine was performed without contrast. On the sagittal T2-weighted images, there is abnormal decreased signal at L4-5. The vertebrae are of normal height. The vertebral alignment is normal. L1-2: There is no significant canal stenosis or neural foraminal narrowing. L2-3: There is no significant canal stenosis or neural foraminal narrowing. L3-4: There is no significant canal stenosis or neural foraminal narrowing. L4-5: There is a mild broad-based midline disc protrusion and annular tear. There is mild spinal canal compromise. There is bilateral facet hypertrophy and moderate bilateral neuroforaminal narrowing. L5-S1: There is no significant canal stenosis or neural foraminal narrowing. IMPRESSION: Mild broad-based midline disc protrusion and annular tear at L4-5 with mild spinal canal compromise, bilateral facet hypertrophy and moderate bilateral neuroforaminal narrowing. Reviewed, Interpreted and Dictated by Harish Caputo MD Transcribed by Lanie Burch Authenticated and [facility]
== END ==
PROVIDERS: PCP Nurse Practitioner Family; Visit Provider Nurse Practitioner Family
DX: M54.50 Low back pain, unspecified (principal)
CPT/HCPCS: 72148; 76376

== ENCOUNTER → 2022-09-17 19:51 | Outpatient (CLI) | payer OTHER, SELFPAY | PROVIDERS: PCP Nurse Practitioner Family; Visit Provider Specialist | DX: G47.30 Sleep apnea, unspecified (principal); R06.83 Snoring; R40.0 Somnolence | CPT/HCPCS: 95810 ==

== ENCOUNTER → 2022-09-29 10:07 | Outpatient (POV) | payer OTHER, SELFPAY ==
[2022-09-29 10:14] VITALS: BP 139/79; PULSE 87; RESP 18; O2SAT 99; BMI 29.0
--- NOTE | 2022-09-29 11:03 | EXP.PAIN.SOA ---
[facility] Pain Management SOAP Note Subjective:: Patient is a pleasant 36-year-old male who presents today for follow-up of lumbar MRI. We are currently treating the patient for degenerative disc disease of lumbar spine with lumbar radiculopathy symptoms, postlaminectomy syndrome, chronic hip pain, greater trochanteric bursitis, sacroiliitis. Today the patient rates his pain a 7 out of 10. Patient denies any new trauma or injury. Patient denies any change location or type of pain he experiences. Patient states he continues to have significant pain in his low back with radiating symptoms into his right leg. Patient does state that he continues to have worsening pain in his right heel. Patient states he cannot tolerate prolonged walking or standing due to the pressure. Patient also states driving aggravates his pain symptoms. Patient does state this affects his ability to perform activities of daily living such as cooking and cleaning. Patient has been going to physical therapy in [place] and states he is doing well with this however he states that he believes that insurance has covered all his available visits. Patient is interested in ordering additional therapy to help with his heel and low back pain. Patient continues to take Celebrex 100 mg twice a day however he states he has not noticed significant relief. He is also prescribed gabapentin 100 mg daily. Patient states that this has seemed to provide some additional relief. Patient denies any side effects from this medication. He is requesting a refill at today's visit. Patient does also use Tylenol as needed along with alprazolam 0.5 mg twice a day from his primary care doctor. Patient does have a spinal cord stimulator in place through [employer]. Patient states it has been a couple months since he has been reprogrammed. His Jimbo is [id number]. Its been reviewed and appropriate. Review of Systems: General: No recent weight changes, no fever, no sleep disturbances Respiratory: No cough, no shortness of air, no recurring pulmonary infections Cardiovascular/peripheral vascular: No chest pain, no palpitations, no edema, no shortness of breath Gastrointestinal: No new onset incontinence, normal bowel movements reported Genitourinary: No new onset incontinence Musculoskeletal: Low back pain, right leg pain Psychiatric: [Normal mood/affect] Neurological: [Denies weakness in extremities], [denies balance issues] Objective:: Physical Exam: General: Alert and oriented x3, no acute distress, pleasant and cooperative Lungs: Respirations even and unlabored, symmetrical chest expansion Eyes: PERRL Musculoskeletal: Flexion and extension of lumbar [spine] somewhat guarded secondary to pain, [antalgic gait noted] Neurological: Speech clear, no gross sensory deficit FINAL REPORT CLINICAL HISTORY: WORSENING LOWER BACK PAIN. [place] a pop in back. right leg pain with numbness and tingling. FINDINGS: Multiplanar MR imaging of the lumbar spine was performed without contrast. On the sagittal T2-weighted images, there is abnormal decreased signal at L4-5. The vertebrae are of normal height. The vertebral alignment is normal.? ? L1-2: There is no significant canal stenosis or neural foraminal narrowing.? L2-3: There is no significant canal stenosis or neural foraminal narrowing.? L3-4: There is no significant canal stenosis or neural foraminal narrowing.? L4-5:? There is a mild broad-based midline disc protrusion and annular tear.? There is mild spinal canal compromise.? There is bilateral facet hypertrophy and moderate bilateral neuroforaminal narrowing.? L5-S1: There is no significant canal stenosis or neural foraminal narrowing. IMPRESSION: Mild broad-based midline disc protrusion and annular tear at L4-5 with mild spinal canal compromise, bilateral facet hypertrophy and moderate bilateral neuroforaminal narrowing. Reviewed, Interpreted and Dictated by Harish Caputo MD Transcribed by Lanie Ryan
== END | disposition home or self-care (01) ==
PROVIDERS: PCP Nurse Practitioner Family; Visit Provider Nurse Practitioner Family
DX: M51.16 Intervertebral disc disorders with radiculopathy, lumbar region (principal); M96.1 Postlaminectomy syndrome, not elsewhere classified; M46.1 Sacroiliitis, not elsewhere classified; M70.60 Trochanteric bursitis, unspecified hip; M25.559 Pain in unspecified hip; G89.29 Other chronic pain; Z79.899 Other long term (current) drug therapy
CPT/HCPCS: 99212; G0463

== ENCOUNTER → 2022-10-20 08:38 | Day surgery (SDC) | payer OTHER, SELFPAY ==
--- NOTE | 2022-10-20 09:26 | EXP.PAIN.SOA ---
[facility] Pain Management SOAP Note Subjective:: Patient is a pleasant 36-year-old male who presents today for insurance denial for a right transforaminal epidural and medication refill. We are currently treating the patient for degenerative disc disease of lumbar spine with lumbar radiculopathy symptoms, postlaminectomy syndrome, chronic hip pain, greater trochanteric bursitis, sacroiliitis. Today he rates his pain a 7 out of 10. Patient denies any new trauma or injury. Patient denies any change location or type of pain he experiences. Patient states he continues to have pain in his low back with radiating symptoms into his right leg. Patient does describe this as a aching, throbbing sensation that is worse with increased activity. He does have worsening pain in his right heel. Patient states he does have altered sensation in his right leg that is very sensitive to touch or pressure. Patient cannot tolerate prolonged walking or standing due to his pain symptoms. He does have difficulty performing activities of daily living such as cooking and cleaning. Patient is seen physical therapy currently and they are doing exercises including having him walk with a cane. Patient states this has help with his ambulation. Patient is currently prescribed Celebrex 100 mg twice a day and gabapentin 100 mg daily. Patient denies any side effects from these medications. He still states his Celebrex he has not noticed significant difference. Patient does have a [employer] spinal cord stimulator in place and is having his stimulator reprogrammed during today's visit. His Jimbo is [id number]. Its been reviewed and appropriate. Review of Systems: General: No recent weight changes, no fever, no sleep disturbances Respiratory: No cough, no shortness of air, no recurring pulmonary infections Cardiovascular/peripheral vascular: No chest pain, no palpitations, no edema, no shortness of breath Gastrointestinal: No new onset incontinence, normal bowel movements reported Genitourinary: No new onset incontinence Musculoskeletal: Low back pain, right leg pain, right heel pain Psychiatric: [Normal mood/affect] Neurological: [Denies weakness in extremities], [denies balance issues] Objective:: Physical Exam: General: Alert and oriented x3, no acute distress, pleasant and cooperative Lungs: Respirations even and unlabored, symmetrical chest expansion Eyes: PERRL Musculoskeletal: Flexion and extension of lumbar [spine] somewhat guarded secondary to pain, [antalgic gait noted] Neurological: Speech clear, no gross sensory deficit Skin: Right foot is cool to touch with moderate edema in comparison to his left foot, right foot does have color change in comparison to his left foot [place] [address] [place] [address] Magnetic Resonance Report Signed Patient: Bill Tesfaye MR#: [id number] : 1985 Acct:[id number] Age/Sex: 36 / ADM Date: 09/16/22 Loc: RAD Attending Dr: Helene Fournier APRN Ordering Physician: Helene Fournier APRN Date of Service: 09/16/22 Procedure(s): MR lumbar spine wo con Accession Number(s): [id number] cc: Ly Morales APRN; Harish Caputo MD~ FINAL REPORT CLINICAL HISTORY: WORSENING LOWER BACK PAIN. [place] a pop in back. right leg pain with numbness and tingling. FINDINGS: Multiplanar MR imaging of the lumbar spine was performed without contrast. On the sagittal T2-weighted images, there is abnormal decreased signal at L4-5. The vertebrae are of normal height. The vertebral alignment is normal.? ? L1-2: There is no significant canal stenosis or neural foraminal narrowing.? L2-3: There is no significant canal stenosis or neural foraminal narrowing.? L3-4: There is no significant canal stenosis or neural foraminal narrowing.? L4-5:? There is a mild broad-based midline disc protrusion and annular tear.? There is mild spinal canal compromise.? There is bilateral facet hypertrophy and moderate
[2022-10-20 09:45] VITALS: BP 133/80; PULSE 89; RESP 20; BMI 28.6
== END | disposition home or self-care (01) ==
PROVIDERS: PCP Nurse Practitioner Family; Visit Provider Nurse Practitioner Family
DX: M51.16 Intervertebral disc disorders with radiculopathy, lumbar region (principal); M96.1 Postlaminectomy syndrome, not elsewhere classified; M46.1 Sacroiliitis, not elsewhere classified; M70.60 Trochanteric bursitis, unspecified hip; M25.559 Pain in unspecified hip; G89.29 Other chronic pain; M79.671 Pain in right foot
CPT/HCPCS: 99212; G0463

== ENCOUNTER 2022-10-28 09:36 | Day surgery (SDC) | payer OTHER, SELFPAY ==
[2022-10-28 10:07] VITALS: BP 128/81; PULSE 64; RESP 18; TEMP 36.7; O2SAT 100; BMI 29.0
[2022-10-28 10:17] VITALS: BP 110/66; PULSE 69; RESP 18; O2SAT 99
[2022-10-28 10:18] VITALS: BP 110/66; PULSE 69; RESP 18; O2SAT 99
[2022-10-28 10:26] VITALS: BP 123/86; PULSE 65; RESP 18; O2SAT 100
--- NOTE | 2022-10-28 11:24 | EXP.PAIN.PRO ---
Procedure Date: 10/28/22 Time: 11:00 Anesthesiologist:: Haile Spicer CRNA Complications:: None Pre-procedure Diagnosis:: Degenerative disc disease lumbar spine multilevels. Lumbar radiculopathy. Lumbar postlaminectomy syndrome. Post-procedure Diagnosis:: Same. Indications for Procedure:: Very pleasant 36-year-old male that comes our clinic today for right L4-5, L5-S1 transforaminal epidural steroid injection. Patient has right hip and leg radicular symptoms to his heel. He rates the pain 8/10. Patient has had right-sided 4 5 discectomy in the past. Procedure Details:: Details of the procedure were explained to the patient. The patient was taken the procedure room placed in the prone position. The area of the lumbar spine was cleansed using chlorhexidine as a cleansing solution. At this time using fluoroscopy guidance markers were placed on the right lateral border of the L4 and L5 vertebral body. The skin and subcutaneous tissue was anesthetized using 1% lidocaine and 25-gauge needle. At this time using a 22-gauge 3-1/2 inch spinal needle the right upper one third of the L4-5 foramen was accessed. The same was done at the right L5-S1 foramen. Needle positions were confirmed and a lateral view using fluoroscopy and contrast dye. At this time 1 cc of 1% lidocaine +20 mg of Depo-Medrol was injected at each level after negative aspiration. [place] were removed. Band-Aid applied. Patient tolerated the procedure without difficulty. There are no complications. Plan and Disposition:: Patient was reevaluated 10 minutes post procedure. He reports moderate to significant improvement terms of his right leg radicular symptoms. I informed the patient in detail regarding the lidocaine lasting 60 to 90 minutes. After which time his pain would return. The steroid will take 3 to 4 days. We will see him back in the clinic for follow-up visit.
== END 2022-10-28 10:26 | disposition home or self-care (01) ==
LOC: SC.PAINP 09:36
PROVIDERS: PCP Nurse Practitioner Family; Visit Provider Nurse Anesthetist, Certified Registered
DX: M51.16 Intervertebral disc disorders with radiculopathy, lumbar region (principal); M96.1 Postlaminectomy syndrome, not elsewhere classified
CPT/HCPCS: 64483; 64484; J1030; Q9966

== ENCOUNTER → 2022-11-12 11:08 | Outpatient (POV) | payer OTHER, SELFPAY ==
--- NOTE | 2022-11-12 12:02 | EXP.PAIN.SOA ---
[facility] Pain Management SOAP Note Subjective:: Patient is a pleasant 36-year-old male who presents today for follow-up of right transforaminal epidural steroid injection at L4-L5 and L5-S1 on 10/28/2022. We are currently treating the patient for degenerative disc disease of lumbar spine with lumbar radiculopathy symptoms, postlaminectomy syndrome, chronic hip pain, greater trochanteric bursitis, sacroiliitis. Today he states that he had at least 50% improvement following this injection however only lasting 1 week. Patient states he was able to increase his activity with less pain and that his right leg symptoms significantly decreased. Today his pain is back to his baseline of 8 out of 10. Patient denies any change to the location or type of pain he experiences. He does describe this as an aching, throbbing sensation that is worse with increased activity. Patient does have altered sensation in his right leg that is very sensitive to touch or pressure. He is unable to tolerate prolonged standing or walking due to his pain. Patient has been using a cane for additional help with ambulation however he states he does try and minimize this because he is not ready to walk with a cane. Patient is currently prescribed Celebrex 100 mg twice a day and gabapentin 100 mg daily. Patient denies any side effects from this medication. He does have a [employer]tronic spinal cord stimulator in place and recently had his reprogramming done however he states that he did find that it was depleting his battery quicker and was not really providing significant relief. He did state that he was able to revert back to his prior programming and is doing well with this. His Jimbo is [id number]. Its been reviewed and appropriate. Review of Systems: General: No recent weight changes, no fever, no sleep disturbances Respiratory: No cough, no shortness of air, no recurring pulmonary infections Cardiovascular/peripheral vascular: No chest pain, no palpitations, no edema, no shortness of breath Gastrointestinal: No new onset incontinence, normal bowel movements reported Genitourinary: No new onset incontinence Musculoskeletal: Low back pain, right leg pain Psychiatric: [Normal mood/affect] Neurological: [Denies weakness in extremities], [denies balance issues] Objective:: Physical Exam: General: Alert and oriented x3, no acute distress, pleasant and cooperative Lungs: Respirations even and unlabored, symmetrical chest expansion Eyes: PERRL Musculoskeletal: Flexion and extension of lumbar [spine] somewhat guarded secondary to pain, [antalgic gait noted] right leg had decreased sensation and reflexes noted in comparison to the left; right leg cool to touch in comparison to the left Neurological: Speech clear, no gross sensory deficit Assessment:: Degenerative disc disease of lumbar spine with lumbar radiculopathy symptoms, postlaminectomy syndrome, chronic hip pain, greater trochanteric bursitis, sacroiliitis Plan:: Patient is experiencing significant pain in his low back with radiating symptoms into his right leg. I have discussed with the patient that he may benefit from repeating his right transforaminal epidural steroid injection. Patient did have over 50% improvement lasting 1 week. Risk and benefits of this injection were explained to the patient and he would like to proceed forward with this plan of care. I have also discussed with the patient that in the future he may benefit from a intrathecal pain pump trial. Educational handouts were given at today's visit. We will schedule the patient for a right transforaminal epidural steroid injection L4-L5 and L5-S1. Patient has been instructed to contact the clinic with any concerns before the next appointment. Dr. Eden has reviewed this note and agrees with this plan of care. This note was dictated using voice recognition software and make contain errors or omissions. [facility] Disclaimer: The information contained in this section may have been
[2022-11-12 12:17] VITALS: BP 145/93; PULSE 96; RESP 18; O2SAT 97; BMI 28.8
== END ==
PROVIDERS: PCP Nurse Practitioner Family; Visit Provider Nurse Practitioner Family
DX: M51.16 Intervertebral disc disorders with radiculopathy, lumbar region (principal); M96.1 Postlaminectomy syndrome, not elsewhere classified; M70.60 Trochanteric bursitis, unspecified hip; M46.1 Sacroiliitis, not elsewhere classified; M25.559 Pain in unspecified hip; G89.29 Other chronic pain
CPT/HCPCS: 99212; G0463

== ENCOUNTER → 2022-11-20 13:35 | Outpatient (POV) | payer OTHER, SELFPAY ==
--- NOTE | 2022-11-20 13:53 | EXP.PAIN.SOA ---
[facility] Pain Management SOAP Note Subjective:: Patient is a pleasant 36-year-old male who presents today for follow-up of insurance denial for a transforaminal epidural.? We are currently treating the patient for degenerative disc disease of lumbar spine with lumbar radiculopathy symptoms, postlaminectomy syndrome, chronic hip pain, greater trochanteric bursitis, sacroiliitis.? Today he rates his pain an 8 out of 10. Patient denies any new trauma or injury. Patient denies any change location or type of pain he experiences. He previously had at least 50% improvement following his last transforaminal epidural lasting 1 week.? He did have increased functionality with decreased pain symptoms. His overall pain in his right leg was decreased. He stated that he was able to increase his activity with a much more tolerable pain level. Patient was able to decrease taking his Celebrex following this injection. He is back to his baseline today and does describe this as an aching, throbbing sensation that is worse with increased activity.? Patient does have altered sensation in his right leg that is very sensitive to touch or pressure.? He is unable to tolerate prolonged standing or walking due to his pain. He does state the pain interferes with his ability to perform activities of daily living such as cooking and cleaning. He does occasionally use a cane for additional help with ambulation. He is currently prescribed Celebrex 100 mg twice a day and gabapentin 100 mg daily.? Patient denies any side effects from this medication.? Patient has a Medtronic spinal cord stimulator in place. At his previous visit we did discuss about the possibility of a pain pump trial in the future however at this time he states he is still undecided. His Jimbo is [id number].? Its been reviewed and appropriate. Review of Systems: General: No recent weight changes, no fever, no sleep disturbances Respiratory: No cough, no shortness of air, no recurring pulmonary infections Cardiovascular/peripheral vascular: No chest pain, no palpitations,? no edema, no shortness of breath Gastrointestinal: No new onset incontinence, normal bowel movements reported Genitourinary: No new onset incontinence Musculoskeletal: Low back pain, right leg pain Psychiatric: [Normal mood/affect] Neurological: [Denies weakness in extremities], [denies balance issues] Objective:: Physical Exam: General: Alert and oriented x3, no acute distress, pleasant and cooperative Lungs: Respirations even and unlabored, symmetrical chest expansion Eyes: PERRL Musculoskeletal: Flexion and extension of lumbar [spine] somewhat guarded secondary to pain, [antalgic gait noted] Neurological: Speech clear, no gross sensory deficit Assessment:: Degenerative disc disease of lumbar spine with lumbar radiculopathy symptoms, postlaminectomy syndrome, chronic hip pain, greater trochanteric bursitis, sacroiliitis Plan:: Patient is experiencing significant pain in his low back with radiating symptoms into his right leg. Patient did have limited range of motion of his lumbar spine during today's visit. I have discussed with the patient that he may benefit from the right transforaminal epidural steroid injection. Risk and benefits were discussed with the patient and he would like to proceed forward with this plan of care. Patient previously had a right transforaminal epidural that provided at least 50% improvement or more and he was able to increase his activity level with decreased pain symptoms. Patient had improved functionality overall and did decrease his Celebrex medication following this injection. Patient has tried and failed conservative therapy such as oral medications, heat and ice, topicals, physical therapy, at home stretching and exercise for longer than 6 weeks. We will schedule him for a right transforaminal epidural steroid injection of L4-L5 and L5-S1. We will contact the patient once we have insurance approval for this procedure. Chela
[2022-11-20 14:32] VITALS: BP 139/96; PULSE 111; RESP 18; O2SAT 98; BMI 28.5
== END ==
PROVIDERS: PCP Nurse Practitioner Family; Visit Provider Nurse Practitioner Family
DX: M51.16 Intervertebral disc disorders with radiculopathy, lumbar region (principal); M96.1 Postlaminectomy syndrome, not elsewhere classified; M70.60 Trochanteric bursitis, unspecified hip; M25.559 Pain in unspecified hip; G89.29 Other chronic pain; M46.1 Sacroiliitis, not elsewhere classified
CPT/HCPCS: 99212; G0463

== ENCOUNTER 2022-12-02 10:23 | Day surgery (SDC) | payer OTHER, SELFPAY ==
[2022-12-02 10:32] VITALS: BP 137/93; PULSE 66; RESP 18; TEMP 36.3; O2SAT 97; BMI 28.5
[2022-12-02 10:43] VITALS: BP 161/91; PULSE 94; RESP 18; O2SAT 98
[2022-12-02 10:58] VITALS: BP 111/90; PULSE 86; RESP 18; O2SAT 97
--- NOTE | 2022-12-02 11:00 | P.PCN_ITS ---
Procedure Date: 12/02/22 Time: 10:30 Anesthesiologist:: Haile Spicer CRNA Complications:: None Pre-procedure Diagnosis:: Degenerative disc lumbar spine multilevels. Lumbar radiculopathy. Lumbar disc bulge L4-5. Lumbar postlaminectomy syndrome. Post-procedure Diagnosis:: Same. Indications for Procedure:: Patient is a pleasant 36-year-old male that comes our clinic today for repeat L4-5, L5-S1 right transforaminal epidural steroid injection. Patient reports moderate improvement terms of his overall low back and right hip and leg symptoms with previous injections at the same level. Today he describes his lumbar back pain pain as constant, dull, sharp and stabbing. Radicular symptoms are reported to be in the right hip and leg to the foot. Specifically right heel pain. He rates his pain 10/10. Patient is status post L4-5 right side laminectomy in the past. Patient saw spine July 2022. They reports they told him he was not bad enough to undergo a second surgery at that time. However, his symptoms have worsened since that time. However, I informed the patient we should send him for a second opinion regarding his low back pain and right leg radicular symptoms. Patient presents ambulating today with a cane due to right hip and leg pain. Procedure Details:: Details of the procedure were explained to the patient. The patient was taken the procedure room placed in the prone position. The area of the lumbar spine was cleansed using chlorhexidine as a cleansing solution. At this time using fluoroscopy guidance markers were placed on the right lateral border of the L4 and L5 vertebral body. The skin and subcutaneous tissue was anesthetized using 1% lidocaine and 25-gauge needle. At this time using a 22-gauge 3-1/2 inch spinal needle the right upper one third of the L4-5 foramen was accessed. The s suzi was done at the right L5-S1 foramen. Needle positions were confirmed and a lateral view using fluoroscopy and contrast dye. At this time 1 cc of 1% lidocaine +20 mg of Depo-Medrol was injected at each level after negative aspiration. [place] were removed. Band-Aid applied. Patient tolerated the procedure without difficulty. There are no complications. Plan and Disposition:: Patient was discharged without incident.
== END 2022-12-02 10:58 | disposition home or self-care (01) ==
PROVIDERS: PCP Nurse Practitioner Family; Visit Provider Nurse Anesthetist, Certified Registered
DX: M51.16 Intervertebral disc disorders with radiculopathy, lumbar region (principal); M96.1 Postlaminectomy syndrome, not elsewhere classified
CPT/HCPCS: 64483; 64484; J1030; Q9966

== ENCOUNTER → 2022-12-22 14:16 | Outpatient (POV) | payer OTHER, SELFPAY ==
--- NOTE | 2022-12-22 15:05 | EXP.PAIN.SOA ---
[facility] Pain Management SOAP Note Subjective:: Patient is a pleasant 37-year-old male who presents today for follow-up of right transforaminal epidural steroid injection of L4-5 and L5-S1 on 12/02/2022. We are currently treating the patient for degenerative disc disease of lumbar spine with lumbar radiculopathy symptoms, postlaminectomy syndrome, chronic hip pain, greater trochanteric bursitis, sacroiliitis. Today he rates his pain a 7 out of 10. Patient denies any new trauma or injury. Patient denies any change location or type of pain he experiences. He states he only had approximately 25% improvement following this injection lasting 1 week. Patient states he continues to have pain in his low back as a aching, throbbing sensation that is worse with increased activity. Patient is scheduled to see neurosurgery in [place] on December 29. Patient is currently managed with Celebrex 100 mg twice a day and gabapentin 100 mg daily. Patient denies any side effects from these medications. He does have a Medtronic spinal cord stimulator in place. He does state that it does help some however lately he still having trouble sleeping. He has officially put his physical therapy on hold considering he has had multiple visits and not seen any additional improvement. He does state that he feels like he does walk better with his cane following these visits. His Jimbo is [id number]. Its been reviewed and appropriate. Review of Systems: General: No recent weight changes, no fever, no sleep disturbances Respiratory: No cough, no shortness of air, no recurring pulmonary infections Cardiovascular/peripheral vascular: No chest pain, no palpitations, no edema, no shortness of breath Gastrointestinal: No new onset incontinence, normal bowel movements reported Genitourinary: No new onset incontinence Musculoskeletal: Low back pain Psychiatric: [Normal mood/affect] Neurological: [Denies weakness in extremities], [denies balance issues] Objective:: Physical Exam: General: Alert and oriented x3, no acute distress, pleasant and cooperative Lungs: Respirations even and unlabored, symmetrical chest expansion Eyes: PERRL Musculoskeletal: Flexion and extension of lumbar [spine] somewhat guarded secondary to pain, [antalgic gait noted] Neurological: Speech clear, no gross sensory deficit Assessment:: Degenerative disc disease of lumbar spine with lumbar radiculopathy symptoms, postlaminectomy syndrome, chronic hip pain, greater trochanteric bursitis, sacroiliitis Plan:: Patient does continue to have significant pain on a daily basis with limited range of motion of his lumbar spine. I have discussed with the patient that in the future he may benefit from a pain pump trial. I will refill his Celebrex 100 mg twice a day and gabapentin 100 mg daily and provide a 1 month supply of this medication. Patient will return to clinic in 1 month for reevaluation of symptoms, medication refill and follow-up. Patient has been instructed to contact the clinic with any concerns before the next appointment. Dr. Eden has reviewed this note and agrees with this plan of care. This note was dictated using voice recognition software and make contain errors or omissions. [facility] Disclaimer: The information contained in this section may have been updated after the patient was seen, as this information can be updated by other users. Medical History Abnormal electrocardiogram [ECG] [EKG] Abnormal result of cardiovascular function study Anxiety Daytime somnolence Fatigue Hypertension Snoring Systolic heart failure Surgical History H/O lumbar discectomy History of appendectomy History of right knee surgery History of tonsillectomy and adenoidectomy Family History Other Diabetes Family history non-contributory Social Hi
[2022-12-22 15:52] VITALS: BP 129/82; PULSE 91; RESP 18; O2SAT 98; BMI 27.7
== END | disposition home or self-care (01) ==
PROVIDERS: PCP Nurse Practitioner Family; Visit Provider Nurse Practitioner Family
DX: M51.16 Intervertebral disc disorders with radiculopathy, lumbar region (principal); M96.1 Postlaminectomy syndrome, not elsewhere classified; M70.60 Trochanteric bursitis, unspecified hip; M25.559 Pain in unspecified hip; G89.29 Other chronic pain
CPT/HCPCS: 99212; G0463

== ENCOUNTER → 2023-01-26 10:02 | Outpatient (POV) | payer OTHER, SELFPAY ==
--- NOTE | 2023-01-26 10:12 | EXP.PAIN.SOA ---
[facility] Pain Management SOAP Note Subjective:: Patient is a pleasant 37-year-old male who presents today for medication refill and follow-up. We are currently treating the patient for degenerative disc disease of lumbar spine with lumbar radiculopathy symptoms, postlaminectomy syndrome, chronic hip pain, greater trochanteric bursitis, sacroiliitis. Today he rates his pain a 7 out of 10. Patient denies any new trauma or injury. Patient denies any change to location or type of pain he experiences. Patient states he is scheduled for an EMG test at a surgeon at in April. Previously we had talked about the possibility of a pain pump trial in the future and at this time he would like to wait. Patient is currently managed with Celebrex 100 mg twice a day and gabapentin 100 mg daily. Patient denies any side effects from this medication. Patient does have a Medtronic spinal cord stimulator in place. His Jimbo is [id number]. Its been reviewed and appropriate. Review of Systems: General: No recent weight changes, no fever, no sleep disturbances Respiratory: No cough, no shortness of air, no recurring pulmonary infections Cardiovascular/peripheral vascular: No chest pain, no palpitations, no edema, no shortness of breath Gastrointestinal: No new onset incontinence, normal bowel movements reported Genitourinary: No new onset incontinence Musculoskeletal: Low back pain Psychiatric: [Normal mood/affect] Neurological: [Denies weakness in extremities], [denies balance issues] Objective:: Physical Exam: General: Alert and oriented x3, no acute distress, pleasant and cooperative Lungs: Respirations even and unlabored, symmetrical chest expansion Eyes: PERRL Musculoskeletal: Flexion and extension of lumbar [spine] somewhat guarded secondary to pain, [antalgic gait noted] Neurological: Speech clear, no gross sensory deficit Assessment:: Degenerative disc disease of lumbar spine with lumbar radiculopathy symptoms, postlaminectomy syndrome, chronic hip pain, greater trochanteric bursitis, sacroiliitis Plan:: I will refill the patient's Celebrex 100 mg twice a day and change his gabapentin to 100 mg twice daily and provide a 2-month supply of these medications. Patient will return to clinic in 2 months for reevaluation of symptoms and medication refill. Patient has been instructed to contact the clinic with any concerns before the next appointment. Dr. Bux has reviewed this note and agrees with this plan of care. This note was dictated using voice recognition software and make contain errors or omissions. [facility] Disclaimer: The information contained in this section may have been updated after the patient was seen, as this information can be updated by other users. Medical History Abnormal electrocardiogram [ECG] [EKG] Abnormal result of cardiovascular function study Anxiety Daytime somnolence History, findings on exam and risk factors are suggestive of underlying sleep disordered breathing. Recent home sleep study was inconclusive and cannot exclude underlying mild MARYCRUZ. I am recommending a PSG under supervision at the sleep center. The patient voiced understanding and was in agreement with the plan. Fatigue Hypertension Snoring Systolic heart failure Surgical History H/O lumbar discectomy History of appendectomy History of right knee surgery History of tonsillectomy and adenoidectomy Family History Other Diabetes Family history non-contributory Social History Smoking Status: Never smoker second hand exposure: No alcohol intake: never substance use type: denies use current occupational status: employed Travel in the last 8 weeks: None household members: spouse housing: house current occupation: [employer]
[2023-01-26 11:24] VITALS: BP 146/95; PULSE 89; RESP 18; BMI 28.3
== END | disposition home or self-care (01) ==
PROVIDERS: PCP Nurse Practitioner Family; Visit Provider Nurse Practitioner Family
DX: M51.16 Intervertebral disc disorders with radiculopathy, lumbar region (principal); M96.1 Postlaminectomy syndrome, not elsewhere classified; M25.559 Pain in unspecified hip; G89.29 Other chronic pain; M70.60 Trochanteric bursitis, unspecified hip; M46.1 Sacroiliitis, not elsewhere classified
CPT/HCPCS: 99212; G0463

== ENCOUNTER 2023-02-05 23:51 | Emergency (ER) | payer OTHER, SELFPAY ==
[2023-02-05 23:50] VITALS: BP 124/77; PULSE 78; RESP 18; O2SAT 96
[2023-02-05 23:51] VITALS: BP 124/77; PULSE 75; RESP 16; TEMP 36.6; O2SAT 96; BMI 27.7
--- NOTE | 2023-02-05 23:53 | PC.NURSE ---
pt placed in blue gown and all SI precautions in place. Items removed from room.
--- NOTE | 2023-02-06 00:03 | ECG_ITS ---
APPROVED REPORT Exam: Resting ECG HR:75 bpm ECG Measurements Heart Rate 75 AXES VT 353 P 101 QRSd 109 QRS 93 QT 398 T 42 QTc 427 Conclusion Regular rhythm ECG with marked electronic interference ABNORMAL RHYTHM ECG UNCONFIRMED REPORT Electronically signed by : Casimiro Topete MD 02/06/2023 08:49:18
[2023-02-06 00:14] LABS: Microscopic, Urine URINE MICROSCOPIC (MICROSCOPIC)
--- NOTE | 2023-02-06 00:14 | PC.NURSE ---
received call asking for an update from beatrice thomas. discussed discussing status of patient with patient with others and he stated that talking to beatrice is fine. Advised beatrice that felicity is stable at this time and no plan of care has been established yet as a MSE hasn't been formed yet. States she will return call in a few hours.
[2023-02-06 00:15] LABS: Appearance,Urine CLEAR (Clear); Bilirubin,Urine Negative (Negative); Blood, Urine Negative (Negative); Color,Urine YELLOW (Yellow); Glucose,Urine (UA) Negative (Negative); Ketones,Urine Negative (Negative); Leukocyte Esterase,Urine Negative (Negative); Nitrate,Urine Negative (Negative); Protein,Urine Negative (Negative); Specific Gravity, Urine 1.015 (1.005-1.030)
--- NOTE | 2023-02-06 00:16 | HMH.EDPSYCH ---
Discharge Plan Disposition Patient Disposition: [facility]fer [facility] Prescriptions Prescriptions: No Action alprazolam 0.5 mg tablet 0.5 mg PO DAILY famotidine 40 mg tablet 40 mg PO DAILY Patient Comments: TAKE ONE TABLET BY MOUTH EVERY DAY amitriptyline 10 mg tablet 10 mg PO DAILY baclofen 5 mg tablet 5 mg PO TID PRN (Reason: Pain) Patient Comments: TAKE ONE TABLET BY MOUTH THREE TIMES DAILY NEEDED FOR MUSCLE SPASMS pantoprazole 40 mg tablet,delayed release (DR/EC) 40 mg PO BID atenolol 25 mg tablet 25 mg PO DAILY Qty: 30 5RF multivitamin Tablet 1 tab PO DAILY lisinopril 10 mg tablet 10 mg PO BID Qty: 180 1RF celecoxib [Celebrex] 100 mg capsule 100 mg PO BID Qty: 60 0RF gabapentin 100 mg capsule 100 mg PO BID Referrals Follow up/Referrals: Ly Morales APRN [Primary Care Provider] - See instructions Clinical Impressions Clinical Impression: Depression, Suicidal ideation Stand Alone Forms Stand Alone Forms: Transfer Record - ED Discharge ED Provider: Reagan PimentelED)Andre Psych HPI General Chief Complaint: Psychiatric Symptoms Stated Complaint: SI Time Seen by Provider: 02/06/23 00:00 Mode of Arrival: EMS Source of Information: Patient, EMS and Medical Record Limitations: No Limitations Description of Symptoms (Recalled from ER Triage Doc. by RN): pt states he been having suicidal ideation with visual and auditory hallucinations for sometime but tonight seen a picture of mother in law holding his child before she passed and wanted it to all end quickly . History of Present Illness HPI Narrative: pt reports feeling depressed and stressed about issues and tonight had thoughts of self harm - MD complaint: suicidal ideation and feels depressed Onset (ago): hour(s) History of same: No Context: significant life stressor Associated psychiatric symptoms: depression Associated symptoms: denies other symptoms Treatments prior to arrival: none If self harm: admits thoughts of self harm and has plan Related Data Home Medications Medication Instructions Recorded Confirmed alprazolam 0.5 mg tablet 0.5 mg PO DAILY Anxiety 11/26/17 02/06/23 amitriptyline 10 mg tablet 10 mg PO DAILY . 05/19/22 02/06/23 famotidine 40 mg tablet 40 mg PO DAILY . 05/19/22 02/06/23 multivitamin 1 tab PO DAILY SUPPLIMENT 08/13/22 02/06/23 pantoprazole 40 mg tablet,delayed 40 mg PO BID GERD 10/02/22 02/06/23 release baclofen 5 mg tablet 5 mg PO TID PRN Pain 01/26/23 02/06/23 gabapentin 100 mg capsule 100 mg PO BID Pain 02/06/23 02/06/23 Previous Rx's Medication Instructions Recorded atenolol 25 mg tablet 25 mg PO DAILY Hypertension #30 06/05/22 tabs lisinopril 10 mg tablet 10 mg PO BID Hypertension #180 tabs 11/18/22 celecoxib 100 mg capsule (Celebrex) 100 mg PO BID Pain #60 caps 01/26/23 Allergies Allergy/AdvReac Type Severity Reaction Status Date / Time Penicillins [PENICILLINS] Allergy Intermediate I-RASH Verified 01/26/23 09:04 tizanidine Allergy Verified 01/26/23 09:04 [facility] Disclaimer: The information contained in this section may have been updated after the patient was seen, as this information can be updated by other users. Medical History (Updated 02/06/23 @ 01:20 by Andre Kirk (ED)MD) Abnormal electrocardiogram [ECG] [EKG] Abnormal result of cardiovascular function study Anxiety Cardiomyopathy Daytime somnolence Fatigue Hypertension Snoring Systolic heart failure Surgical History H/O lumbar discectomy History of appendectomy History of right knee surgery History of tonsillectomy and adenoidectomy Family History Other Diabetes Family history non-contributory Social History Smoking Status: Never smoker second hand exposure: No alcohol
[2023-02-06 00:20] LABS: Basophils % 0.3 % (0.1-2.0); Eosinophils # 0.2 K/mm3 (0.0-0.4); Hematocrit 40.8 % (42.0-52.0); Hemoglobin 13.7 g/dL (14.1-18.0); Lymphocytes % 23.9 % (10-50); Mean Corpuscular HGB Conc 33.5 g/dL (31.8-35.4); Mean Corpuscular Hemoglobin 29.1 pg (27.0-31.2); Mean Corpuscular Volume 86.9 fl (80-94); Mean Platelet Volume 8.3 fl (7.4-10.4); Monocytes # 0.6 K/mm3 (0.1-1.0); Monocytes % 7.1 % (1.7-9.3); Neutrophils # 5.5 K/mm3 (1.8-7.8); Neutrophils % 66.6 % (37.0-80.0); Platelet Count 245 K/mm3 (142-424); Red Blood Count 4.69 M/mm3 (4.60-6.20); Red Cell Distribution Width 13.2 % (11.5-17.5); White Blood Count 8.3 K/mm3 (4.8-10.8)
[2023-02-06 00:21] LABS: WBC,Urine Occasional #/hpf (0-3)
[2023-02-06 00:31] LABS: Alanine Aminotransferase 34 U/L (12-78); Albumin Level 4.6 g/dl (3.5-5.0); Albumin/Globulin Ratio 1.8 (1.1-1.8); Alkaline Phosphatase 92 U/L (38-126); Anion Gap 16.4 mEq/L (5-15); Aspartate Amino Transferase 28 U/L (17-59); Bilirubin,Total 0.9 mg/dl (0.2-1.3); Blood Urea Nitrogen 18 mg/dl (9-20); Calcium 8.7 mg/dl (8.4-10.2); Carbon Dioxide 25 mmol/L (22.0-30.0); Chloride 101 mmol/L (98-107); Creatinine Clearance Estimated 139 mL/min (50-200); Estimated Glomerular Filt Rate 85 ml/min (>60); GFR (African American) 103 ML/MIN (>60); Globulin 2.6 g/dL (1.3-3.2); Glucose 111 mg/dl (74-100); Potassium 3.4 mmoL/L (3.5-5.1); Sodium 139 mmol/L (136-145); Total Protein,Serum 7.2 g/dl (6.3-8.2)
[2023-02-06 00:32] LABS: Acetaminophen < 10 ug/ml (10-30); Ethyl Alcohol < 10 mg/dl (0-10); Salicylate < 1.0 mg/dL (2.0-20.0)
[2023-02-06 00:44] LABS: Coronavirus 19, PCR Not Detected (NotDetected); Influenza A, PCR Not Detected (NotDetected); Influenza B, PCR Not Detected (NotDetected)
--- NOTE | 2023-02-06 00:46 | PC.NURSE ---
Dr. Kirk at
--- NOTE | 2023-02-06 01:06 | PC.NURSE ---
CALL PLACED TO JONATHAN CASAS RN. SPOKE WITH WILL. TO FAX INFO TO THEM AND WAIT ON INTAKE TO CALL BACK.
[2023-02-06 01:33] VITALS: BP 116/69; PULSE 88; O2SAT 100
--- NOTE | 2023-02-06 01:33 | PC.NURSE ---
Rounded on pt. Pt voiced no needs at this time. Pt resting with eyes closed.
[2023-02-06 01:53] LABS: Amphetamine/Metha Screen,Urine Negative ng/ml (<1000)
[2023-02-06 01:54] LABS: Barbiturates Screen,Urine Negative ng/ml (<200); Benzodiazepines Screen,Urine Positive ng/ml (<200)
[2023-02-06 01:55] LABS: Cannabinoid Screen,Urine Negative ng/ml (<50); Cocaine Screen,Urine Negative ng/ml (<300)
[2023-02-06 01:56] LABS: Methadone Screen,Urine Negative ng/ml (<300)
[2023-02-06 01:57] LABS: Opiate Screen,Urine Negative ng/ml (<300); Phencyclidine Screen,Urine Negative ng/ml (<25)
--- NOTE | 2023-02-06 02:08 | PC.NURSE ---
faxed pt lab and ekg to intake @ [facility] @ this time
--- NOTE | 2023-02-06 02:35 | PC.NURSE ---
SPOKE WITH FERNANDO AGAIN. ADVISED HER WITH HIS PERMISSION WE WILL ALERT HER TO HIS DISPOSITION WE FIND IT OUT. SHE VERBALLY ACKNOWLEDGED. PHONE NUMBER FOR NOTIFICATION [phone]
--- NOTE | 2023-02-06 03:14 | PC.NURSE ---
spoke with tone intake nurse @ [facility]. she states hasn't been able to review chart yet but will call back soon
[2023-02-06 03:18] VITALS: BP 126/79; PULSE 72; RESP 16; O2SAT 97
--- NOTE | 2023-02-06 03:56 | PC.NURSE ---
spoke with laury @ [facility] and faxed pt's chart for review @ this time
--- NOTE | 2023-02-06 04:28 | PC.NURSE ---
pt on phone with intake nurse for phone assessment
--- NOTE | 2023-02-06 04:59 | PC.NURSE ---
pt has been accepted to [facility]
--- NOTE | 2023-02-06 05:12 | PC.NURSE ---
[facility] notified at 0500 that the pt needs to be transferred to [facility]. EMS crew stated they would be on their way to take him momentarily. MADHAV
[2023-02-06 05:17] VITALS: BP 121/68; PULSE 69; RESP 16; TEMP 36.6; O2SAT 99
== END 2023-02-06 05:35 ==
PROVIDERS: Emergency Provider Emergency Medicine; PCP Nurse Practitioner Family
DX: R45.851 Suicidal ideations (principal); R44.0 Auditory hallucinations; R44.1 Visual hallucinations; F32.A Depression, unspecified; I11.0 Hypertensive heart disease with heart failure; I50.20 Unspecified systolic (congestive) heart failure; I42.9 Cardiomyopathy, unspecified; F41.9 Anxiety disorder, unspecified
CPT/HCPCS: 80053; 80305; 80329; 81001; 85025; 87635; 87636; 93005; 99285; C9803; U0003; U0005

== ENCOUNTER → 2023-03-23 10:59 | Outpatient (CLI) | payer OTHER, SELFPAY ==
[2023-03-23 11:45] LABS: Glucose,Fasting 100 mg/dl (74-100)
[2023-03-23 13:05] LABS: Glucose 1 Hour 84 mg/dL (74-100)
[2023-03-23 13:55] LABS: Glucose 2 Hour 80 mg/dL (74-100)
== END ==
PROVIDERS: PCP Nurse Practitioner Family; Visit Provider Nurse Practitioner Family
DX: R73.02 Impaired glucose tolerance (oral) (principal)
CPT/HCPCS: 36415; 82951

== ENCOUNTER → 2023-04-01 08:39 | Outpatient (POV) | payer OTHER, SELFPAY ==
--- NOTE | 2023-04-01 08:53 | EXP.PAIN.SOA ---
[facility] Pain Management SOAP Note Subjective:: Patient is a pleasant 37-year-old male who presents today for medication refill and follow-up. We are currently treating the patient for degenerative disc disease of lumbar spine with lumbar radiculopathy symptoms, postlaminectomy syndrome, chronic hip pain, greater trochanteric bursitis, sacroiliitis. Today he rates his pain a 7 out of 10. He denies any new trauma or injury. Patient denies any change to location or type of pain he experiences. From our last visit he does state that he has had some medication changes. Patient states that he had some reactions to other medications and the provider took him off his gabapentin as well as his amitriptyline and Xanax. He does state that they added Cymbalta and Seroquel. He does state that he continues to have the low back pain that does radiate into his right leg and at times it is severe enough that it makes him sick to his stomach. Patient has had previous injective therapy that have provided significant improvement however only lasting 3 to 4 days on average. He is currently prescribed Celebrex 100 mg twice a day and baclofen 5 mg 3 times daily. Patient denies any side effects from this medication. Patient does have a [employer] spinal cord stimulator in place. He does state that he has lost almost 40 pounds over the last several months and he is not sure how well his [employer] device is working with his current pain. His Jimbo is [id number]. Its been reviewed and appropriate. Review of Systems: General: No recent weight changes, no fever, no sleep disturbances Respiratory: No cough, no shortness of air, no recurring pulmonary infections Cardiovascular/peripheral vascular: No chest pain, no palpitations, no edema, no shortness of breath Gastrointestinal: No new onset incontinence, normal bowel movements reported Genitourinary: No new onset incontinence Musculoskeletal: Low back pain, right leg pain Psychiatric: [Normal mood/affect] Neurological: [Denies weakness in extremities], [denies balance issu Objective:: Physical Exam: General: Alert and oriented x3, no acute distress, pleasant and cooperative Lungs: Respirations even and unlabored, symmetrical chest expansion Eyes: PERRL Musculoskeletal: Flexion and extension of lumbar [spine] somewhat guarded secondary to pain, [antalgic gait noted] Neurological: Speech clear, no gross sensory deficit Assessment:: Degenerative disc disease of lumbar spine with lumbar radiculopathy symptoms, postlaminectomy syndrome, chronic hip pain, greater trochanteric bursitis, sacroiliitis Plan:: I will send in refills of his Celebrex 100 mg twice a day, baclofen 5 mg 3 times daily and send in a new prescription of Zofran 4 mg every 8 hours as needed and provide a 3-month supply of these medications. I will get into contact with [employer] sales support representative to contact the patient for reprogramming. Patient will return to clinic in 3 months for reevaluation of symptoms and plan of care. Patient has been instructed to contact the clinic with any concerns before the next appointment. Dr. Eden has reviewed this note and agrees with this plan of care. This note was dictated using voice recognition software and make contain errors or omissions. [facility] Disclaimer: The information contained in this section may have been updated after the patient was seen, as this information can be updated by other users. Medical History (Updated 02/06/23 @ 01:20 by Andre Kirk (ED)MD) Abnormal electrocardiogram [ECG] [EKG] Abnormal result of cardiovascular function study Anxiety Cardiomyopathy Daytime somnolence Fatigue Hypertension Snoring Systolic heart failure Surgical History H/O lumbar discectomy History of appendectomy History of right knee surgery History of tonsillectomy and adenoidectomy Family History Other Diabetes
[2023-04-01 10:10] VITALS: BP 124/68; PULSE 87; RESP 18; O2SAT 98; BMI 25.9
== END | disposition home or self-care (01) ==
PROVIDERS: PCP Nurse Practitioner Family; Visit Provider Nurse Practitioner Family
DX: M51.16 Intervertebral disc disorders with radiculopathy, lumbar region (principal); M96.1 Postlaminectomy syndrome, not elsewhere classified; M25.559 Pain in unspecified hip; G89.29 Other chronic pain; M70.60 Trochanteric bursitis, unspecified hip; M46.1 Sacroiliitis, not elsewhere classified
CPT/HCPCS: 99212; G0463

== ENCOUNTER → 2023-04-14 15:53 | Outpatient (CLI) | payer OTHER, SELFPAY ==
[2023-04-14 17:11] LABS: Basophils % 0.3 % (0.1-2.0); Eosinophils # 0.2 K/mm3 (0.0-0.4); Eosinophils % 3.4 % (0.1-12.0); Hematocrit 43.9 % (42.0-52.0); Lymphocytes # 2.1 K/mm3 (0.7-4.5); Lymphocytes % 32.1 % (10-50); Mean Corpuscular HGB Conc 34.1 g/dL (31.8-35.4); Mean Corpuscular Hemoglobin 30.9 pg (27.0-31.2); Mean Corpuscular Volume 90.5 fl (80-94); Mean Platelet Volume 7.6 fl (7.4-10.4); Monocytes # 0.5 K/mm3 (0.1-1.0); Monocytes % 7.4 % (1.7-9.3); Neutrophils # 3.6 K/mm3 (1.8-7.8); Neutrophils % 56.8 % (37.0-80.0); Platelet Count 290 K/mm3 (142-424); Red Blood Count 4.85 M/mm3 (4.60-6.20); White Blood Count 6.4 K/mm3 (4.8-10.8)
[2023-04-14 17:38] LABS: Alanine Aminotransferase 27 U/L (12-78); Alkaline Phosphatase 76 U/L (38-126); Anion Gap 15.8 mEq/L (5-15); Aspartate Amino Transferase 29 U/L (17-59); Bilirubin,Indirect 0.7 mg/dL (0.0-0.9); Bilirubin,Total 0.7 mg/dl (0.2-1.3); Bilirubin,Unconjugated 0.7 mg/dL (0.0-1.1); Blood Urea Nitrogen 18 mg/dl (9-20); Calcium 9.5 mg/dl (8.4-10.2); Carbon Dioxide 29 mmol/L (22.0-30.0); Chloride 102 mmol/L (98-107); Chol/HDL Ratio 5.1 (1-3.5); Cholesterol 158 mg/dl (140-200); Estimated Glomerular Filt Rate 96 ml/min (>60); GFR (African American) 116 ML/MIN (>60); Glucose 98 mg/dl (74-100); HDL Cholesterol 31 mg/dl (40-60); Potassium 4.8 mmoL/L (3.5-5.1); Sodium 142 mmol/L (136-145); Total Protein,Serum 7.6 g/dl (6.3-8.2); Triglycerides 106 mg/dl (30-150); VLDL Cholesterol 21 mg/dL (0-40)
[2023-04-14 17:54] LABS: Free T4 (Free Thyroxine) 1.15 ng/dl (0.78-2.19)
[2023-04-14 18:08] LABS: Thyroid Stimulating Hormone 1.08 uIU/mL (0.465-4.68)
== END ==
PROVIDERS: PCP Nurse Practitioner Family; Visit Provider Physician Assistant
DX: R06.00 Dyspnea, unspecified (principal); R00.2 Palpitations; I42.8 Other cardiomyopathies; I11.9 Hypertensive heart disease without heart failure; R94.31 Abnormal electrocardiogram [ECG] [EKG]; I63.9 Cerebral infarction, unspecified; R60.9 Edema, unspecified; E11.9 Type 2 diabetes mellitus without complications; Z79.899 Other long term (current) drug therapy
CPT/HCPCS: 36415; 80048; 80061; 80076; 84439; 84443; 85025; 93270

== ENCOUNTER → 2023-05-04 10:05 | Outpatient (CLI) | payer OTHER, SELFPAY ==
--- NOTE | 2023-05-04 10:32 | CA_ITS ---
APPROVED REPORT EXAM: Comprehensive 2D, Doppler, and color-flow Echocardiogram Regional Account Director: Kaitlin Hopper CRT Ht: 6 ft 1 in Wt: 194lbs BSA: 2.12 BP: 119/77 mmHg Indications: Chest Pain, Congestive Heart Failure, Palpitations, Fatigue, Cardiomyopathy, Hypertension/HDD 2D Dimensions LVOT 2.09 cm (M/F) 1.5-2.5 LA Volume 61.10 mL LA Volume Index 28.69 mL/m2 (M/F) 16-34 M-Mode Dimensions RVDd 2.06 cm (0.9-2.6) LA Diam 2.96 cm (1.9-4.0) LVDd 5.74 cm (3.5-5.7) Ao Diam 3.99 cm (2.0-3.7) LVDs 4.18 cm (3.5-5.7) IVSd 1.26 cm (0.6-1.1) PWd 0.63 cm (0.6-1.1) EF (Teich) 52.20% FS 27.20% EDV (Teich) 162.60 mL TAPSE 1.88 (<1.7) ESV (Teich) 77.70 mL LV Diastology E Decel Time 150.00 (160-240 msec) E/A Ratio 0.92 MED E' 9.30 (< 7 cm/sec) MED A' 8.20 cm/s E'/MED E' Ratio 6.73 (>14) LAT E' 15.00 (<10 cm/sec) LAT A' 8.90 cm/s E/LAT E' Ratio 4.17 (>14) Aortic Valve AO Peak GR. 5.60 mmHg Mitral Valve MV A Velocity 68.00 (40-130 cm/s) E/A Ratio 0.92 MV Decel. Time 150.00 (160-240 ms) Pulmonary Valve PV Peak Velocity 145.00 (50-150 cm/s) Tricuspid Valve TR P. Velocity 337.00 cm/s RAP Estimate 10.00 mmHg RVSP 55.50 mmHg Left Ventricle The left ventricle is normal size. Left ventricular systolic function is mildly decreased. There is normal left ventricular wall thickness. There is mild global hypokinesis. The left ventricular diastolic function is normal. LVEF is 45-50% Right Ventricle The right ventricle is normal size. The right ventricular systolic function is normal. Atria The left atrium size is normal. The right atrium size is normal. There is no Doppler evidence of interatrial shunt. Aortic Valve The aortic valve is normal in structure. There is no aortic valvular stenosis. No aortic regurgitation is present. Mitral Valve The mitral valve is normal in structure. No evidence of mitral valve stenosis. Trace mitral regurgitation. Tricuspid Valve The tricuspid valve leaflets are thin and pliable. Trace tricuspid regurgitation. There is insufficient TR jet to estimate RVSP. Pulmonic Valve The pulmonary valve is normal in structure. Trace pulmonic regurgitation. Great Vessels The aortic root is normal in size. The ascending aorta is normal in size. IVC is normal in size and collapses >50% with inspiration. Pericardium There is no pericardial effusion. Other Information Study Quality: Adequate Conclusion Mild reduction in LV systolic function (LVEF 45-50%) No significant valvular stenosis or regurgitation. Compared to prior study from 06/24/2022, there are overall no significant changes. Electronically signed by : Taylor Veras MD 05/06/2023 19:10:09
== END ==
PROVIDERS: PCP Nurse Practitioner Family; Visit Provider Physician Assistant
DX: I42.8 Other cardiomyopathies (principal); I10 Essential (primary) hypertension; R94.31 Abnormal electrocardiogram [ECG] [EKG]
CPT/HCPCS: 93306

== ENCOUNTER → 2023-06-01 09:16 | Outpatient (POV) | payer OTHER, SELFPAY ==
[2023-06-01 10:44] VITALS: BP 129/82; PULSE 95; RESP 18; O2SAT 97; BMI 26.4
--- NOTE | 2023-06-01 12:59 | EXP.PAIN.SOA ---
[facility] Pain Management SOAP Note Subjective:: This patient is a very pleasant 37-year-old male that comes our clinic today for refill of medication and follow-up visit. We currently treat the patient for degenerative disc lumbar spine multilevels. Lumbar radiculopathy. Postlaminectomy syndrome lumbar spine. Chronic hip pain. Sacroiliitis. Patient rates his pain today 8/10. Patient is currently being managed from our office with Celebrex 100 mg 1 p.o. twice daily. Baclofen 5 mg 1 p.o. 3 times daily. Patient has a functional spinal cord stimulator lumbar spine. Patient reports having recent visit with [employer] school admissions representative to reprogram the stimulator. He states it is working. However his main complaint is low back pain right hip and leg radicular system to the foot. He rates the pain 8/10. Patient has had lumbar epidural steroid injection in the past. Patient has had transforaminal epidural steroid in the past. Patient not interested in any further spine surgery. He had a recent visit with spine surgery. I discussed in detail with the patient regarding caudal block. Answered his questions. Patient states he would like to give this a try. I think this is reasonable. I also discussed in detail with the patient regarding intrathecal pain pump management. Following caudal block we will have the patient follow-up with Dr. Eden to further discuss intrathecal pain pump management. The patient's Jimbo #[id number] is been reviewed and appropriate Objective:: Patient is awake alert [place] x3. In no acute distress. Flexion-extension lumbar spine somewhat guarded secondary to pain. Deep tendon reflexes upper and lower extremities normal. Motor strength upper and lower extremities normal. There is no gross sensory deficit. Gait is antalgic requiring a cane for stability. Assessment:: Degenerative disc lumbar spine multilevels. Lumbar radiculopathy. Lumbar postlaminectomy syndrome. Chronic bilateral hip pain. Bilateral sacroiliitis. Plan:: We will move forward with caudal epidural steroid injection. We will send in refills for his Celebrex 100 mg 1 p.o. twice daily and baclofen 5 mg 1 p.o. 3 times daily. Patient reports both medications are decreasing his pain to some degree. He does not report any side effects from the medication. [facility] Disclaimer: The information contained in this section may have been updated after the patient was seen, as this information can be updated by other users. Medical History (Updated 05/12/23 @ 15:34 by Ashley Tyler RN) Abnormal electrocardiogram [ECG] [EKG] Abnormal result of cardiovascular function study Dzvfy-4-[id number] deficiency Anxiety Cardiomyopathy Daytime somnolence Esophageal stricture Fatigue Fatty liver Hypertension LV dysfunction Snoring Systolic heart failure Surgical History H/O lumbar discectomy History of appendectomy History of right knee surgery History of tonsillectomy and adenoidectomy Family History Other Diabetes Family history non-contributory Social History Smoking Status: Never smoker second hand exposure: No alcohol intake: never substance use type: denies use current occupational status: employed Travel in the last 8 weeks: None household members: spouse housing: house current occupation: [employer] current occupational exposures/hazards: No caffeine: Yes
== END | disposition home or self-care (01) ==
PROVIDERS: PCP Nurse Practitioner Family; Visit Provider Nurse Anesthetist, Certified Registered
DX: M51.16 Intervertebral disc disorders with radiculopathy, lumbar region (principal); M96.1 Postlaminectomy syndrome, not elsewhere classified; M25.551 Pain in right hip; M25.552 Pain in left hip; G89.29 Other chronic pain; M46.1 Sacroiliitis, not elsewhere classified
CPT/HCPCS: 99212; G0463

== ENCOUNTER 2023-06-16 14:02 | Day surgery (SDC) | payer OTHER, SELFPAY ==
[2023-06-16 14:23] VITALS: BP 145/79; PULSE 87; RESP 16; TEMP 36.3; O2SAT 98; BMI 26.7
[2023-06-16 14:50] VITALS: BP 126/83; PULSE 82; RESP 18; O2SAT 98
[2023-06-16 14:51] VITALS: BP 126/82; PULSE 89; RESP 18; O2SAT 98
[2023-06-16 14:55] VITALS: BP 143/91; PULSE 87; RESP 18; O2SAT 98
--- NOTE | 2023-06-16 14:55 | EXP.PAIN.PRO ---
Procedure Date: 06/16/23 Time: 14:50 Anesthesiologist:: Haile Spicer CRNA Complications:: None Pre-procedure Diagnosis:: Degenerative disc lumbar spine multilevels. Lumbar radiculopathy. Lumbar postlaminectomy syndrome. Post-procedure Diagnosis:: Same. Indications for Procedure:: Patient is a very pleasant 37-year-old male that comes our clinic today for a caudal epidural steroid injection. Patient has low back pain as well as bilateral hip and leg radicular symptoms he describes as constant, dull, aching. He rates his pain 7/10. Procedure Details:: Procedure: Caudal epidural steroid injection under fluoroscopy Informed consent was obtained and the risks and benefits of the procedure were explained to the patient. The patient was taken to the procedure room and noninvasive monitors placed, including noninvasive blood pressure cuff and pulse oximeter. The back was viewed using C-arm Fluoroscopy and prepped using Chloraprep as a cleansing solution and the caudal space palpated. Skin and subcutaneous tissues were anesthetized using lidocaine 1.5% and a 25-gauge needle. After this, an 22-gauge spinal needle was placed into the caudal interspace and advanced using fluoroscopic guidance. After confirmation of needle placement in the caudal space, with dye, a solution containing normal saline, 5 mL and Depo-Medrol 80 mg were incrementally injected into the lumbar epidural space. The patient tolerated the procedure well with no complications. The patient was observed in the Pain Clinic and then discharged home neurologically intact. Plan and Disposition:: Patient was discharged out incident.
== END 2023-06-16 14:55 | disposition home or self-care (01) ==
LOC: SC.PAINP 14:02
PROVIDERS: PCP Nurse Practitioner Family; Visit Provider Nurse Anesthetist, Certified Registered
DX: M51.16 Intervertebral disc disorders with radiculopathy, lumbar region (principal); M96.1 Postlaminectomy syndrome, not elsewhere classified
CPT/HCPCS: 62323; J1030

== ENCOUNTER → 2023-06-29 12:57 | Outpatient (POV) | payer OTHER, SELFPAY ==
[2023-06-29 13:16] VITALS: BP 109/79; PULSE 104; RESP 19; O2SAT 96; BMI 26.7
--- NOTE | 2023-06-29 13:37 | EXP.PAIN.SOA ---
[facility] Pain Management SOAP Note Subjective:: Patient is a pleasant 37-year-old male who presents today for follow-up of caudal epidural steroid injection on 06/16/2023. We are currently treating the patient for degenerative disc disease of lumbar spine with lumbar radiculopathy symptoms, postlaminectomy syndrome, chronic hip pain, sacroiliitis. Today he rates his pain a 7 out of 10. Patient denies any new trauma or injury. Patient states that he did have approximately 40 to 50% improvement lasting 3 to 4 days however he quickly went back to his baseline. Patient does state that he has heaviness that comes and goes with increased pressure. Patient does complain today that he has back and legs still continue to be what causes most of his pain. Patient does have a [employer] spinal cord stimulator in place that he states is still providing good relief. He states he was reprogrammed about a month or 2 ago and does not feel like he needs to do additional adjusting. We have discussed with the patient in the past regarding possible pain pump trial. He does state he has additional questions at today's visit. Patient is currently managed with Celebrex 100 mg twice a day, and baclofen 5 mg 3 times a day. Patient denies any side effects from this medication however he states he does not think they are working as well as they initially were. Patient is also managed with alprazolam from his PCP. Patient has been prescribed gabapentin 100 mg twice a day from our office in the past. His Jimbo has been reviewed and is appropriate. Review of Systems: General: No recent weight changes, no fever, no sleep disturbances Respiratory: No cough, no shortness of air, no recurring pulmonary infections Cardiovascular/peripheral vascular: No chest pain, no palpitations, no edema, no shortness of breath Gastrointestinal: No new onset incontinence, normal bowel movements reported Genitourinary: No new onset incontinence Musculoskeletal: Low back pain, leg pain Psychiatric: [Normal mood/affect] Neurological: [Denies weakness in extremities], [denies balance issues] Objective:: Physical Exam: General: Alert and oriented x3, no acute distress, pleasant and cooperative Lungs: Respirations even and unlabored, symmetrical chest expansion Eyes: PERRL Musculoskeletal: Flexion and extension of lumbar [spine] somewhat guarded secondary to pain, [antalgic gait noted] Neurological: Speech clear, no gross sensory deficit Assessment:: Degenerative disc disease of lumbar spine with lumbar radiculopathy symptoms, lumbar postlaminectomy syndrome, chronic hip pain, sacroiliitis, chronic pain syndrome Plan:: I will refill the patient's Celebrex 100 mg twice a day and increase his baclofen to 10 mg 3 times a day and provide a 1 month supply of these medications. I have reviewed over the risk and benefits of the pain pump trial with the patient today and he would like to review this with his significant other. Patient will return to clinic in 1 month for reevaluation of symptoms and plan of care. Patient has been instructed to contact the clinic with any concerns before the next appointment. Dr. Eden has reviewed this note and agrees with this plan of care. This note was dictated using voice recognition software and make contain errors or omissions. [facility] Disclaimer: The information contained in this section may have been updated after the patient was seen, as this information can be updated by other users. Medical History Abnormal electrocardiogram [ECG] [EKG] Abnormal result of cardiovascular function study [id number]-[id number] deficiency Anxiety Cardiomyopathy Daytime somnolence Esophageal stricture Fatigue Fatty liver Hypertension LV dysfunction Snoring Systolic heart failure Surgical History H/O lumbar discectomy History of appendectomy History of right knee martinez
== END | disposition home or self-care (01) ==
PROVIDERS: PCP Nurse Practitioner Family; Visit Provider Nurse Practitioner Family
DX: M51.16 Intervertebral disc disorders with radiculopathy, lumbar region (principal); M96.1 Postlaminectomy syndrome, not elsewhere classified; M46.1 Sacroiliitis, not elsewhere classified; M25.559 Pain in unspecified hip; G89.4 Chronic pain syndrome
CPT/HCPCS: 99212; G0463

== ENCOUNTER → 2023-07-27 11:13 | Outpatient (POV) | payer OTHER, SELFPAY ==
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
[2023-07-27 11:50] VITALS: BP 139/89; PULSE 90; RESP 18; O2SAT 96; BMI 26.9
== END | disposition home or self-care (01) ==
PROVIDERS: PCP Nurse Practitioner Family; Visit Provider Nurse Practitioner Family
DX: M51.16 Intervertebral disc disorders with radiculopathy, lumbar region (principal); M96.1 Postlaminectomy syndrome, not elsewhere classified; M25.559 Pain in unspecified hip; G89.4 Chronic pain syndrome; M46.1 Sacroiliitis, not elsewhere classified
CPT/HCPCS: 99212; G0463

== ENCOUNTER 2023-08-24 10:41 | Outpatient (CLI) | payer OTHER, SELFPAY ==
[2023-08-24 11:28] LABS: Blood Urea Nitrogen 11 mg/dl (9-20); Estimated Glomerular Filt Rate 96 ml/min (>60); GFR (African American) 116 ML/MIN (>60)
== END 2023-08-24 23:59 ==
LOC: LAB 10:42
PROVIDERS: Physician Assistant; PCP Nurse Practitioner Family; Visit Provider Internal Medicine
DX: Z01.812 Encounter for preprocedural laboratory examination (principal)
CPT/HCPCS: 36415; 82565; 84520

== ENCOUNTER 2023-08-26 08:44 | Outpatient (CLI) | payer OTHER, SELFPAY ==
[2023-08-24 12:52] VITALS: BMI 29.0
[2023-08-26] VITALS (9 sets, daily range): BP systolic 96–138; BP diastolic 56–88; PULSE 62–88; RESP 16–18; TEMP 36.6–36.7; O2SAT 96–99
[2023-08-26] MEDS: IVABRADINE HCL 7.5MG TABLET 15 MG PO (09:17)
[2023-08-26] MEDS: METOPROLOL TARTRATE 25MG TABLET 75 MG (09:17)
[2023-08-26] MEDS: NITROGLYCERIN 0.4MG SL TABLET 0.800000000000000044 MG SL (10:30)
== END 2023-08-26 23:59 | disposition home or self-care (01) ==
PROVIDERS: PCP Nurse Practitioner Family; Visit Provider Physician Assistant
DX: R07.89 Other chest pain; R94.31 Abnormal electrocardiogram [ECG] [EKG]
CPT/HCPCS: 75571; 75574

== ENCOUNTER 2023-10-16 08:45 | Day surgery (SDC) | payer OTHER, SELFPAY ==
[2023-10-16 09:10] VITALS: BP 137/79; PULSE 83; RESP 20; TEMP 36.6; O2SAT 96; BMI 31.6
[2023-10-16] MEDS: CLINDAMYCIN PHOSPHATE/D5W 900 MG/50 ML PIGGYBACK 106 MG IV (09:36)
[2023-10-16] MEDS: LIDOCAINE 1% 30ML PF VIAL 30 ML (09:36)
[2023-10-16 09:38] VITALS: BP 148/110; PULSE 88; RESP 18; O2SAT 97
[2023-10-16 09:39] VITALS: BP 148/110; PULSE 89; RESP 18; O2SAT 97
--- NOTE | 2023-10-16 10:08 | PC.NURSE ---
0950-pt returned to [facility] via w/c. BLE numb and [facility] No c/o pain. Lumbar dressing C/D/I. VS 107/79, 113, 20, 96% on RA. 1005-pt sitting in w/c. tolerating PO fluids. no c/o pain. lumbar dressing C/D/I. VS 129/79, 94, 20, 97% on RA
--- NOTE | 2023-10-16 10:34 | PC.NURSE ---
1020-pt resting in w/c. no c/o pain. lumbar dressing c/d/i. VS 125/77, 89, 20, 98% on RA. pt without needs or concerns at this time. 1035-pt resting in w/c watching tv. no c/o pain. lumbar dressing C/D/I. VS-102/79, 85, 20, 97% on RA. patient able to lift BLE, but does report continued numbness. no needs or concerns at this time.
--- NOTE | 2023-10-16 10:46 | PC.NURSE ---
pt able to stand with SBA x2. reports no pain while standing. pt unable to step forward d/t numbness/weakness in BLE. pt assisted back to w/c
[2023-10-16] MEDS: BUPIVACAINE 0.75% IN DEXTROSE 2ML AMP 2 ML IJ (10:48)
[2023-10-16 11:15] VITALS: BP 116/74; PULSE 101; RESP 20; O2SAT 98
--- NOTE | 2023-10-16 11:16 | PC.NURSE ---
1105-pt resting in w/c. no c/o pain. lumbar dressing C/D/I. pt reports no numbness to BLE and increased ROM. pt able to stand without weakness with SBA only. Pt utilized quad cane to ambulate to nursing station with SBA. no c/o weakness/numbness/pain.
--- NOTE | 2023-10-16 12:17 | P.PCN_ITS ---
Procedure Date: 10/16/23 Time: 12:17 Anesthesiologist:: Brayan Eden MD Complications:: None Pre-procedure Diagnosis:: Degenerative disc disease of lumbar spine with lumbar radiculopathy symptoms Post-procedure Diagnosis:: Same Indications for Procedure:: The patient is a pleasant 37-year-old white male who we are treating for low back pain with lumbar radiculopathy symptoms. He does have a spinal cord stimulator in place to help with leg pain. However he has having some increasing axial back pain. He has failed all conservative treatments including injections, oral medications, physical therapy. He had a successful psychological evaluation. He is not a candidate for surgery. Will plan on intrathecal pump trial today to help with his back pain. Patient does have issues with his liver such as fatty liver disease and does not want any opioids of this will be a bupivacaine pain pump trial. Procedure Details:: Pain pump trial Informed consent was obtained and the risk and benefits of the procedure was explained to the patient. The patient was taken to the procedure room and placed prone on the procedure table. Patient was prepped and draped in sterile fashion. C-arm fluoroscopy was used to view the lumbar spine. The skin and subcutaneous tissues were anesthetized using lidocaine. I placed a 18-gauge spinal needle into the L4-5 interspace and advanced until clear CSF was obtained. After this intrathecal catheter was inserted and advanced very easily to the L1 vertebral body. The needle was withdrawn. We were able to freely withdraw clear CSF through the catheter. We then injected intrathecal bupivacai ne single shot bolus of 3 mg followed by saline and followed by the previous CSF that was withdrawn. The needle and catheter were then removed and a Band-Aid was placed. Patient tolerated the procedure well with no complications. We reevaluated the patient after 30 minutes to 1 hour. He was assessed by physical therapy. He had 90 to 100% relief in pain symptoms. He is much more functional. He is doing very well pain score is down to 1 out of 10. By all indications this did seem to be a successful intrathecal pump trial. Will follow-up with him in 1 week. If successful we will plan on permanent placement with intrathecal bupivacaine 5 mg per mall to start at 2.5 mg/day. Catheter tip will be at the T8 vertebral body. Plan and Disposition:: Will follow-up with him in 1 week. If successful we will plan on permanent placement with intrathecal bupivacaine 5 mg per mall to start at 2.5 mg/day. Catheter tip will be at the T8 vertebral body.
== END 2023-10-16 11:15 | disposition home or self-care (01) ==
LOC: SC.PAINP 08:46
PROVIDERS: PCP Nurse Practitioner Family; Visit Provider Anesthesiology
DX: M51.16 Intervertebral disc disorders with radiculopathy, lumbar region (principal)
CPT/HCPCS: 62323; 96365

== ENCOUNTER 2023-11-02 10:16 | Outpatient (POV) | payer OTHER, SELFPAY ==
[2023-11-02 10:27] VITALS: BP 140/79; PULSE 77; RESP 18; TEMP 36.8; O2SAT 99; BMI 31.6
--- NOTE | 2023-11-02 10:57 | EXP.PAIN.SOA ---
[facility] Pain Management SOAP Note Subjective:: Patient is a pleasant 37-year-old male who presents today for follow-up of intrathecal pain pump trial on 10/16/2023.We are currently treating the patient for degenerative disc disease of lumbar spine with lumbar radiculopathy symptoms, lumbar postlaminectomy syndrome, chronic hip pain, sacroiliitis. Today he rates his pain an 7 out of 10. Patient denies any new trauma or injury. He does state that he had significant improvement while he was here at the hospital following this medication trial with 90 to 100% relief. He states that he continues to get more relief over the next day and a half and states that he was at approximately 50%. He states he was able to play with his kids and felt overall more functional. He states that he felt like he could do things he has not been able to do for years. Patient does state he would like to proceed forward with the pump implant. Patient does have a [employer] spinal cord stimulator in place and states that it is doing good. Patient has tried and failed conservative treatment such as oral medication, heat and ice, topicals, physical therapy, at home stretching exercise longer than 6 weeks. Patient is currently managed with Celebrex 100 mg twice a day and baclofen 10 mg 3 times a day. He denies any side effects from this medication. His Jimbo has been reviewed and is appropriate. Review of Systems: General: No recent weight changes, no fever, no sleep disturbances Respiratory: No cough, no shortness of air, no recurring pulmonary infections Cardiovascular/peripheral vascular: No chest pain, no palpitations, no edema, no shortness of breath Gastrointestinal: No new onset incontinence, normal bowel movements reported Genitourinary: No new onset incontinence Musculoskeletal: Low back pain Psychiatric: [Normal mood/affect] Neurological: [Denies weakness in extremities], [denies balance issues] Objective:: Physical Exam: General: Alert and oriented x3, no acute distress, pleasant and cooperative Lungs: Respirations even and unlabored, symmetrical chest expansion Eyes: PERRL Musculoskeletal: Flexion and extension of lumbar [spine] somewhat guarded secondary to pain, [antalgic gait noted] Neurological: Speech clear, no gross sensory deficit Assessment:: Degenerative disc disease of lumbar spine with lumbar radiculopathy symptoms, lumbar postlaminectomy syndrome, chronic hip pain, sacroiliitis Plan:: Patient did have significant improvement following his intrathecal pump trial. Risk and benefits of the intrathecal pump placement have been explained to the patient and he would like to proceed forward with this plan of care. Patient is not on blood thinners. Patient has tried and failed conservative treatment. He is not a surgical candidate. Patient was found to be an appropriate candidate at this device through psychological evaluation. We will plan on submitting to insurance for the intrathecal pump implant. His pump medication will be bupivacaine 5 mg/mL with a starting dose of 2.5 mg/day with the catheter tip at the T8 vertebral body. I will refill the patient's baclofen and Celebrex and provide a 3-month supply of these medications. Patient has been instructed to contact the clinic with any concerns before the next appointment. Dr. Eden has reviewed this note and agrees with this plan of care. This note was dictated using voice recognition software and make contain errors or omissions. [facility] Disclaimer: The information contained in this section may have been updated after the patient was seen, as this information can be updated by other users. Medical History Fatty liver Cuddc-4-[id number] deficiency Esophageal stricture Hx of esophageal stretching x 2, AVOID LENARD LV dysfunction Cardiomyopathy Anxiety Hypertension Daytime somnolence History, findings on exam and risk factors are suggestive of underlying sleep disordered breathing. Recent home sleep study was inconclusive and cannot exclude underlying mild MARYCRUZ. I am recommending a PSG under supervision at the sleep center. The patient voiced understanding and was in agreement with the plan. Snoring Fatigue Systolic heart failure Abnormal result of cardiovascular function study Abnormal electrocardiogram [ECG] [EKG] Surgical History History of arthroplasty of right hip H/O lumbar discectomy History of right knee surgery History of tonsillectomy and adenoidectomy History of appendectomy Family History Other Diabetes Family history non-contributory Social History (Updated 10/16/23 @ 09:11 by Deepa Ingram RN) Smoking Status: Never smoker second hand exposure: No alcohol intake: never substance use type: denies use current occupational status: other Travel in the last 8 weeks: None household members: spouse housing: house current occupation: [employer] current occupational exposures/hazards: No caffeine: Yes
== END 2023-11-02 23:59 | disposition home or self-care (01) ==
PROVIDERS: PCP Nurse Practitioner Family; Visit Provider Nurse Practitioner Family
DX: M51.16 Intervertebral disc disorders with radiculopathy, lumbar region (principal); M96.1 Postlaminectomy syndrome, not elsewhere classified; M25.559 Pain in unspecified hip; G89.29 Other chronic pain; M46.1 Sacroiliitis, not elsewhere classified
CPT/HCPCS: 99212; G0463

== ENCOUNTER 2024-03-16 13:43 | Outpatient (POV) | payer OTHER, SELFPAY ==
[2024-03-16 14:02] VITALS: BP 120/76; PULSE 101; RESP 16; O2SAT 95; BMI 34.0
--- NOTE | 2024-03-16 15:41 | EXP.PAIN.SOA ---
[facility] Disclaimer: The information contained in this section may have been updated after the patient was seen, as this information can be updated by other users. Medical History Fatty liver Cedrh-5-tzekffuhnsc deficiency Esophageal stricture Hx of esophageal stretching x 2, AVOID LENARD LV dysfunction Cardiomyopathy Anxiety Hypertension Daytime somnolence History, findings on exam and risk factors are suggestive of underlying sleep disordered breathing. Recent home sleep study was inconclusive and cannot exclude underlying mild MARYCRUZ. I am recommending a PSG under supervision at the sleep center. The patient voiced understanding and was in agreement with the plan. Snoring Fatigue Systolic heart failure Abnormal result of cardiovascular function study Abnormal electrocardiogram [ECG] [EKG] Surgical History History of arthroplasty of right hip H/O lumbar discectomy History of right knee surgery History of tonsillectomy and adenoidectomy History of appendectomy Family History Other Diabetes Family history non-contributory Social History Smoking Status: Never smoker second hand exposure: No alcohol intake: never substance use type: denies use current occupational status: unemployed Travel in the last 8 weeks: None household members: spouse housing: house current occupation: [employer] current occupational exposures/hazards: No caffeine: Yes PM Subjective & Objective Subjective Subjective:: Patient is a pleasant 37-year-old male who presents today for insurance denial of the intrathecal pain pump implant and medication refill.We are currently treating the patient for degenerative disc disease of lumbar spine with lumbar radiculopathy symptoms, lumbar postlaminectomy syndrome, chronic hip pain, sacroiliitis. Today he rates his pain an 7 out of 10. Patient denies any new trauma or injury. Patient did undergo a intrathecal pain pump trial with 90 to 100% relief lasting approximately 36 hours. Patient does state that after we got our denial he ended up getting a letter in the mail stating insurance had approved it however gave a surgical date on or before December. Patient states he did not receive this letter until into January and that he still would like to proceed forward with this option. Patient states with the trial he did feel much more functional and had better quality of life that he could enjoy his time with his kids. Patient does state he would like to proceed forward with the pump implant. Patient does have a Medtronic spinal cord stimulator in place and states that it is doing good. Patient has tried and failed conservative treatment such as oral medication, heat and ice, topicals, physical therapy, at home stretching exercise longer than 6 weeks. Patient is currently managed with Celebrex 100 mg twice a day and baclofen 10 mg 3 times a day. He denies any side effects from this medication. His Jimbo has been reviewed and is appropriate. Review of Systems: General: No recent weight changes, no fever, no sleep disturbances Respiratory: No cough, no shortness of air, no recurring pulmonary infections Cardiovascular/peripheral vascular: No chest pain, no palpitations, no edema, no shortness of breath Gastrointestinal: No new onset incontinence, normal bowel movements reported Genitourinary: No new onset incontinence Musculoskeletal: Low back pain Psychiatric: [Normal mood/affect] Neurological: [Denies weakness in extremities], [denies balance issues] Pain at rest (0-10 scale): 7 Objective Objective:: Physical Exam: General: Alert and oriented x3, no acute distress, pleasant and cooperative Lungs: Respirations even and unlabored, symmetrical chest expansion Eyes: PERRL Musculoskeletal: Flexion and extension of lumbar [spine] somewhat guarded secondary to pain, [antalgic gait noted] Neurological: Speech clear, no gross sensory deficit Has patient had previous pain injection?: No Conservative treatment options previously tried: NSAIDS Length of treatment: Longer than 6 weeks, Home exercise plan Length of treatment: Longer than 6 weeks and Prescription medications Length of treatment: Longer than 6 weeks Meds Home Medications and Allergies Home Medications ?Medication ?Instructions ?Recorded ?Confirmed ?Type famotidine 40 mg tablet 40 mg PO DAILY . 05/19/22 03/16/24 History multivitamin 1 tab PO DAILY SUPPLIMENT 08/13/22 03/16/24 History pantoprazole 40 mg tablet,delayed 40 mg PO BID GERD 10/02/22 03/16/24 History release ondansetron 4 mg disintegrating 4 mg PO Q8H PRN nausea and 04/01/23 03/16/24 Rx tablet vomiting #30 tabs quetiapine 100 mg tablet 100 mg PO HS 05/12/23 03/16/24 History oxcarbazepine 150 mg tablet 150 mg PO BID 07/21/23 03/16/24 History (Trileptal) metoprolol succinate 25 mg 25 mg PO BID #180 tabs 09/03/23 03/16/24 Rx tablet,extended release 24 hr (Toprol XL) dapagliflozin propanediol 5 mg 5 mg PO DAILY #90 tabs 10/15/23 03/16/24 Rx tablet (Farxiga) baclofen 10 mg tablet 10 mg PO TID #90 tabs 11/02/23 03/16/24 Rx celecoxib 100 mg capsule (Celebrex) 100 mg PO BID #60 caps 11/02/23 03/16/24 Rx sacubitril 49 mg-valsartan 51 mg 1 tab PO BID #60 tabs 12/08/23 03/16/24 Rx tablet (Entresto) buspirone 15 mg tablet 15 mg PO TID 02/29/24 03/16/24 History doxepin 25 mg capsule 25 mg PO HS 02/29/24 03/16/24 History duloxetine 30 mg capsule,delayed 90 mg PO DAILY 02/29/24 03/16/24 History release baclofen 10 mg tablet 10 mg PO TID #90 tabs 03/02/24 03/16/24 Rx oxybutynin chloride 10 mg 10 mg PO DAILY #90 tabs 03/14/24 03/16/24 Rx tablet,extended release 24 hr tamsulosin 0.4 mg capsule (Flomax) 0.4 mg PO DAILY #30 caps 03/14/24 03/16/24 Rx New Prescriptions to Start Prescriptions: Allergies Allergy/AdvReac Type Severity Reaction Status Date / Time Penicillins [PENICILLINS] Allergy Intermediate I-RASH Verified 03/14/24 09:45 tizanidine Allergy Verified 03/14/24 09:45 Assessment and Plan *Assessment and plan (1) Degenerative disc disease, lumbar: Status: Acute Category: Medical Code(s): M51.36 - Other intervertebral disc degeneration, lumbar region (2) Chronic low back pain: Status: Acute Qualifiers: Back pain laterality: bilateral Sciatica presence: without sciatica Qualified Code(s): M54.50 - Low back pain, unspecified; G89.29 - Other chronic pain Category: Medical Code(s): M54.50 - Low back pain, unspecified; G89.29 - Other chronic pain Plan Patient did undergo a intrathecal pump trial with significant improvement in the patient would like to proceed forward with the intrathecal implant. Risk and benefits have been discussed and they still wish to continue with this plan of care. Patient has tried and failed conservative therapies. Patient does have a signed agreement that if we proceed forward with the intrathecal pump that there will be a decrease in oral pain medications if this is applicable with the overall goal 2-no oral opioids once the intrathecal pain pump is established. Prior to the intrathecal trial patient was on a fixed schedule with her medications and patient has been compliant with her medication regimen. Patient had 90 to 100% relief lasting 36 hours. risk and benefits of the intrathecal pump placement have been explained to the patient and he would like to proceed forward with this plan of care. Patient is not on blood thinners. Patient has tried and failed conservative treatment. He is not a surgical candidate. Patient was found to be an appropriate candidate at this device through psychological evaluation. We will plan on submitting to insurance for the intrathecal pump implant. His pump medication will be bupivacaine 5 mg/mL with a starting dose of 2.5 mg/day with the catheter tip at the T8 vertebral body. I will refill the patient's baclofen and Celebrex and provide a 3-month supply of these medications. I will also refill the patient's Celebrex and baclofen and provide a 3-month supply of these medications. Patient has been instructed to contact the clinic with any concerns before the next appointment. Dr. Eden has reviewed this note and agrees with this plan of care. This note was dictated using voice recognition software and make contain errors or omissions.
== END 2024-03-16 23:59 | disposition home or self-care (01) ==
PROVIDERS: PCP Nurse Practitioner Family; Visit Provider Nurse Practitioner Family
DX: M51.36 Other intervertebral disc degeneration, lumbar region (principal); M54.50 Low back pain, unspecified; G89.29 Other chronic pain; Z96.82 Presence of neurostimulator; Z79.899 Other long term (current) drug therapy
CPT/HCPCS: 99212; G0463

== ENCOUNTER 2024-05-17 12:13 | Outpatient (CLI) | payer OTHER, SELFPAY ==
[2024-05-17 15:03] LABS: Basophils # 0.1 K/mm3 (0-0.2); Basophils % 0.8 % (0.1-2.0); Eosinophils # 0.6 K/mm3 (0.0-0.4); Hematocrit 45.3 % (42.0-52.0); Hemoglobin 15.7 g/dL (14.1-18.0); Lymphocytes % 28.2 % (10-50); Mean Corpuscular HGB Conc 34.7 g/dL (31.8-35.4); Mean Corpuscular Hemoglobin 30.3 pg (27.0-31.2); Mean Corpuscular Volume 87.3 fl (80-94); Mean Platelet Volume 7.8 fl (7.4-10.4); Monocytes # 0.7 K/mm3 (0.1-1.0); Neutrophils # 3.7 K/mm3 (1.8-7.8); Neutrophils % 52.9 % (37.0-80.0); Platelet Count 294 K/mm3 (142-424); Red Blood Count 5.19 M/mm3 (4.60-6.20); White Blood Count 7.1 K/mm3 (4.8-10.8)
[2024-05-17 15:08] LABS: Albumin Level 4.9 g/dl (3.5-5.0); Chloride 101 mmol/L (98-107); Sodium 138 mmol/L (136-145)
[2024-05-17 15:09] LABS: Potassium 4.1 mmoL/L (3.5-5.1)
[2024-05-17 15:11] LABS: Alanine Aminotransferase 66 U/L (12-78); Albumin/Globulin Ratio 1.6 (1.1-1.8); Alkaline Phosphatase 83 U/L (38-126); Anion Gap 16.1 mEq/L (5-15); Aspartate Amino Transferase 53 U/L (17-59); Bilirubin,Total 0.6 mg/dl (0.2-1.3); Blood Urea Nitrogen 13 mg/dl (9-20); Carbon Dioxide 25 mmol/L (22.0-30.0); Estimated Glomerular Filt Rate 76 ml/min (>60); GFR (African American) 92 ML/MIN (>60); Total Protein,Serum 7.9 g/dl (6.3-8.2)
[2024-05-17 15:12] LABS: Calcium 9.5 mg/dl (8.4-10.2); Glucose 109 mg/dl (74-100)
== END 2024-05-17 23:59 | disposition home or self-care (01) ==
LOC: PREOP 12:16
PROVIDERS: PCP Nurse Practitioner Family; Visit Provider Anesthesiology
DX: Z01.812 Encounter for preprocedural laboratory examination (principal)
CPT/HCPCS: 80053; 85025

== ENCOUNTER 2024-05-20 06:00 | Day surgery (SDC) | payer OTHER, SELFPAY ==
[2024-05-17 12:32] VITALS: BMI 34.2
[2024-05-20 06:38] VITALS: BP 115/72; PULSE 81; RESP 18; TEMP 36.4; O2SAT 98
--- NOTE | 2024-05-20 06:51 | EXP.ANES.CKL ---
[facility] Disclaimer: The information contained in this section may have been updated after the patient was seen, as this information can be updated by other users. Medical History History of urinary frequency Tinnitus Impacted cerumen, bilateral Hearing difficulty of both ears History of esophageal dilatation Fatty liver Uooks-6-gyqomwvyfmu deficiency Esophageal stricture LV dysfunction Cardiomyopathy Anxiety Hypertension Daytime somnolence Snoring Fatigue Systolic heart failure Abnormal result of cardiovascular function study Abnormal electrocardiogram [ECG] [EKG] Surgical History History of surgery History of arthroplasty of right hip H/O lumbar discectomy History of right knee surgery History of tonsillectomy and adenoidectomy History of appendectomy Family History Other Diabetes Family history non-contributory Social History (Updated 05/20/24 @ 06:14 by Daphney Mandujano RN) Smoking Status: Never smoker second hand exposure: No alcohol intake: never substance use type: denies use current occupational status: unemployed and disabled Travel in the last 8 weeks: None household members: spouse housing: house current occupation: [employer] current occupational exposures/hazards: No caffeine: Yes [facility] Anesthesia Checklist Patient Identification Patient Identification: Arm Band and Family Structural Data Admitted From: Home Planned Operative Procedure/s: Epidural pain punp placement. Consent for Planned Operative Procedure(s) Verified: Yes Verified Documents: History and Physical NPO Status Verified Time NPO: 00:00 Additional verifications Patient : No Anesthesia Reactions: No Hx Blood Transfusions: No Blood Transfusion Reaction: No Cephalosporin Allergy: Yes Previous Colonoscopy: No Airway Assessment Mallampati Score:: Class III C-Spine Mobility Assessed: Yes TMJ Mobility Assessed: Yes Dentition: Good Dentition Neurological Assessment Level of Consciousness: Awake, Appropriate and Follows Commands Hx Seizures: No Numbness or tingling in extremities: No Anesthesia Plan Anesthesia Risk discussed: Yes ASA Class: III Anesthesia Type: General Preoperative Comments Pre-Operative Comments: Severe GERD. Facial hair. Difficult to awaken.
[2024-05-20] MEDS: VANCOMYCIN HCL 2,000 MG in 0.9 % SODIUM CHLORIDE 250 ML 125 MG IV (08:18)
[2024-05-20] MEDS: LIDOCAINE 1% W/EPI 1:100,000 20ML VIAL 40 ML (08:19)
[2024-05-20] MEDS: GENTAMICIN 80 MG/2 ML VIAL (08:20)
[2024-05-20] MEDS: SODIUM CHLORIDE 0.9% 20ML VIAL 40 ML IV (08:20)
[2024-05-20 09:10] VITALS: BP 146/75; PULSE 76; RESP 18; TEMP 36.8; O2SAT 97
[2024-05-20 09:20] VITALS: BP 137/71; PULSE 74; RESP 16; TEMP 36.8; O2SAT 95
[2024-05-20 09:30] VITALS: BP 145/78; PULSE 78; RESP 16; TEMP 36.8; O2SAT 97
[2024-05-20 09:40] VITALS: BP 150/83; PULSE 77; RESP 16; TEMP 36.8; O2SAT 97
[2024-05-20 09:50] VITALS: BP 166/89; PULSE 70; RESP 16; TEMP 36.4; O2SAT 99
--- NOTE | 2024-05-20 10:03 | P.OP_ITS ---
Date of procedure: 05/20/24 Pre-op Diagnosis:: Degenerative disc disease of lumbar spine with lumbar radiculopathy symptoms Post-op Diagnosis:: Same Procedure performed:: Permanent placement intrathecal pain pump Surgeon:: Brayan Eden MD [employer] DEPARTMENT CHAIR:: Dandre Li Anesthesia: MAC Estimated blood loss (mL): 5 Clinical Note:: This patient is a pleasant 38-year-old white male who we have been treating for low back pain with lumbar radicular symptoms. He does have a spinal cord stimulator in place to help with leg pain however he continues to have axial back pain. He has failed all other conservative therapy including injections, oral medications, physical therapy and he is not a surgical candidate. He has had a successful intrathecal pump trial with bupivacaine. He does have fatty liver disease and does not want any opioids. We will plan on implanting him with a nonnarcotic with intrathecal bupivacaine today. Will start him at 5 mg/mL to 2.5 mg/day. Operative findings:: None Operative note:: Informed consent was obtained the risk and benefits of the procedure was explained to the patient. The patient was taken to the procedure room and placed prone on the procedure table. The patient was prepped and draped in sterile fashion. C arm fluoroscopy was used to view the left flank. [place] between the 12th rib and iliac crest the skin and subcutaneous tissues were anesthetized using lidocaine. I made an incision and dissected out the pump generator pocket. C-arm fluoroscopy was then used to view the lumbar spine. The skin and subcutaneous tissues adjacent to the L4-5 and L5-S1 interspace were anesthetized using lidocaine. I made incision dissected down to the lumbar paraspinous fascia. A 17-gauge spinal needle was inserted and advanced into the L5-S1 interspace until clear CSF was obtained. After this intrathecal catheter was inserted and advanced to the T8 vertebral body. Catheter was in good position it was just left of midline and posterior. The stylet of the catheter and the needle withdrawn. The catheter was secured to the fascia with an anchor device and 2-0 Prolene. I filled the pump with 20 mL of intrathecal bupivacaine 5 mg/mL. I tunneled the catheter from the back to the pump pocket and attached catheter to the pump. We were able to freely withdraw clear CSF through the sideport. The pump was then placed in the pocket with an antibiotic pouch. Both incisions were then closed with 2-0 Vicryl followed by 4-0 nylon and shanel. The pump was interrogated and started at 2.5 mg/day. The patient was brought to recovery in stable condition in an abdominal binder. Patient tolerated the procedure well with no complications. Patient was discharged home neurologic intact with good relief of pain symptoms. Plan and disposition: Will follow-up with this patient in 1 week for wound check. Will follow-up in 2 to 3 weeks for suture and staple removal. Condition: stable Disposition: PACU Complications:: None
== END 2024-05-20 10:05 | disposition home or self-care (01) ==
PROVIDERS: PCP Nurse Practitioner Family; Visit Provider Anesthesiology
PROC: (CPT 62350; principal; 2024-05-20 07:30)
DX: M51.16 Intervertebral disc disorders with radiculopathy, lumbar region (principal)
CPT/HCPCS: 62350; 62362; 96374; C1755; C1772; J1580; J2250; J2704; J3010; J3370

== ENCOUNTER 2024-06-03 08:31 | Outpatient (POV) | payer OTHER, SELFPAY ==
--- NOTE | 2024-06-03 09:03 | EXP.PAIN.PRO ---
Procedure Date: 06/03/24 Time: 09:03 Anesthesiologist:: Helene Fournier APRN Complications:: None Pre-procedure Diagnosis:: Degenerative disc disease of lumbar spine with lumbar radiculopathy symptoms Post-procedure Diagnosis:: Same Indications for Procedure:: Patient is a pleasant 38-year-old male who presents today for 2-week follow-up of intrathecal pump placement on 05/20/2024. Today he rates his pain a 5 out of 10. Patient denies any new trauma or injury. He does state that overall he is doing well with this procedure however he feels like the medicine is not working as well and does need adjustment. Patient is currently managed with bupivacaine 5 mg/mL with a daily dose of 2.50 to 6 mg/day. He denies any side effects from this medication. His Jimbo has been reviewed and is appropriate. Physical Exam: General: Alert and oriented x3, no acute distress, pleasant and cooperative Lungs: Respirations even and unlabored, symmetrical chest expansion Eyes: PERRL Musculoskeletal: Flexion and extension of lumbar [spine] somewhat guarded secondary to pain, [antalgic gait noted] Neurological: Speech clear, no gross sensory deficit Skin: Incision sites are clean, dry, well-approximated with sutures and shanel intact Procedure Details:: Informed consent was obtained and the risk and benefits of the procedure were explained to the patient. Patient was taken to the procedure room where noninvasive monitoring was placed including noninvasive blood pressure cuff and pulse oximeter. Patient's pump was interrogated and was reprogrammed to bupivacaine 3.0046 mg/day. The patient tolerated the procedure well with no complications. Plan and Disposition:: Patient was able to have some of his sutures and shanel removed during today's visit. We did leave several shanel in and we will plan on taking these out next week. Patient was counseled to continue his postop restrictions for the full 6 weeks. Patient acknowledges understanding. Patient did tolerate his intrathecal increase with no complications and was discharged neurologically intact. Patient will return to clinic in 1 week for possible additional adjustment as well as remainder of the staple removal. We will see the patient back in the clinic at the next intrathecal refill. Patient has been instructed to contact the clinic with any concerns before the next appointment. Dr. Eden has reviewed this note and agrees with this plan of care. This note was dictated using voice recognition software and make contain errors or omissions. -- It Is medically necessary for this patient to continue to have their intrathecal pump refilled at regular intervals. This patient had an intrathecal pain pump implanted after meeting criteria of chronic intractable pain for greater than 3 months and failing conservative treatments. Patient has committed and been compliant to the treatment plan and all planned follow up care. Since implantation of the intrathecal pain pump, the patient has had decreased pain and been more functional. Oral medications have been reduced including intake of oral opioids. Patient continues to do well with intrathecal therapy with decrease in pain symptoms and increase in functional status. Stopping intrathecal medications can lead to life threatening withdrawal, seizures, cardiac arrest, severe pain, and possible . Pumps that are not refilled at regular intervals can be damages and cause and need for replacement. We continually titrate dose and concentration to optimize pain relief and function. We are limited in concentration for certain drugs to safely deliver medications through the pump and stay within the recommendations from the Polyanalges[employer] Consensus Committee Guidelines. Depending on dose and concentration these pumps may need to be refilled sooner than 3 months as we titrate.
[2024-06-03 09:22] VITALS: BP 109/66; PULSE 85; RESP 18; O2SAT 96; BMI 34.2
== END 2024-06-03 23:59 | disposition home or self-care (01) ==
PROVIDERS: PCP Nurse Practitioner Family; Visit Provider Nurse Practitioner Family
DX: M51.16 Intervertebral disc disorders with radiculopathy, lumbar region (principal)
CPT/HCPCS: 62368; 99212; 99213; G0463

== ENCOUNTER 2024-06-08 13:20 | Outpatient (POV) | payer OTHER, SELFPAY ==
[2024-06-08 13:45] VITALS: BP 111/77; PULSE 82; RESP 16; O2SAT 97; BMI 38.0
--- NOTE | 2024-06-08 14:15 | EXP.PAIN.SOA ---
[facility] Disclaimer: The information contained in this section may have been updated after the patient was seen, as this information can be updated by other users. Medical History History of urinary frequency Tinnitus Impacted cerumen, bilateral Hearing difficulty of both ears History of esophageal dilatation Fatty liver Kbfow-2-[id number] deficiency Esophageal stricture LV dysfunction Cardiomyopathy Anxiety Hypertension Daytime somnolence Snoring Fatigue Systolic heart failure Abnormal result of cardiovascular function study Abnormal electrocardiogram [ECG] [EKG] Surgical History History of surgery History of arthroplasty of right hip H/O lumbar discectomy History of right knee surgery History of tonsillectomy and adenoidectomy History of appendectomy Family History Other Diabetes Family history non-contributory Social History (Updated 05/20/24 @ 06:14 by Daphney Mandujano RN) Smoking Status: Never smoker second hand exposure: No alcohol intake: never substance use type: denies use current occupational status: unemployed and disabled Travel in the last 8 weeks: None household members: spouse housing: house current occupation: [employer] current occupational exposures/hazards: No caffeine: Yes PM Subjective & Objective Subjective Subjective:: Patient is a pleasant 38-year-old male who presents today for follow-up and remainder staple removal. Today he rates his pain a 3 out of 10. He denies any new trauma or injury. Patient states overall his pump is doing well and feels like he does not need any adjustment on this dosage. He is currently managed with bupivacaine 5 mg/mL with a daily dose of 3.0046 milligrams per day. He denies any side effects to this medication. Patient does state that he is having difficulty with his stimulator where it is not doing its auto adjustment. Patient is requesting if we can get a hold of [employer] representatives for additional reprogramming. Patient states that he did talk to 1 on the phone already. Patient is managed with baclofen 10 mg 3 times daily, Celebrex 100 mg twice a day. He denies any side effects from this medication. His Jimbo has been reviewed and is appropriate. Review of Systems: General: No recent weight changes, no fever, no sleep disturbances Respiratory: No cough, no shortness of air, no recurring pulmonary infections Cardiovascular/peripheral vascular: No chest pain, no palpitations, no edema, no shortness of breath Gastrointestinal: No new onset incontinence, normal bowel movements reported Genitourinary: No new onset incontinence Musculoskeletal: Low back pain Psychiatric: [Normal mood/affect] Neurological: [Denies weakness in extremities], [denies balance issues] Pain at rest (0-10 scale): 3 Objective Objective:: Physical Exam: General: Alert and oriented x3, no acute distress, pleasant and cooperative Lungs: Respirations even and unlabored, symmetrical chest expansion Eyes: PERRL Musculoskeletal: Flexion and extension of lumbar [spine] somewhat guarded secondary to pain, [antalgic gait noted] Neurological: Speech clear, no gross sensory deficit Skin: Incision sites are clean, dry, well-approximated with minimal erythema noted Has patient had previous pain injection?: No Conservative treatment options previously tried: Home exercise plan Length of treatment: Longer than 12 weeks Meds Home Medications and Allergies Home Medications ?Medication ?Instructions ?Recorded ?Confirmed ?Type famotidine 40 mg tablet 40 mg PO DAILY . 05/19/22 06/03/24 History multivitamin 1 tab PO DAILY SUPPLIMENT 08/13/22 06/03/24 History pantoprazole 40 mg tablet,delayed 40 mg PO BID GERD 10/02/22 06/03/24 History release ondansetron 4 mg disintegrating 4 mg PO Q8H PRN nausea and 04/01/23 06/03/24 Rx tablet vomiting #30 tabs quetiapine 100 mg tablet 100 mg PO HS 05/12/23 06/03/24 History oxcarbazepine 150 mg tablet 150 mg PO BID 07/21/23 06/03/24 History (Trileptal) metoprolol succinate 25 mg 25 mg PO BID #180 tabs 09/03/23 06/03/24 Rx tablet,extended release 24 hr (Toprol XL) dapagliflozin propanediol 5 mg 5 mg PO DAILY #90 tabs 10/15/23 06/03/24 Rx tablet (Farxiga) sacubitril 49 mg-valsartan 51 mg 1 tab PO BID #60 tabs 12/08/23 06/03/24 Rx tablet (Entresto) buspirone 15 mg tablet 15 mg PO TID 02/29/24 06/03/24 History doxepin 25 mg capsule 25 mg PO HS 02/29/24 06/03/24 History duloxetine 30 mg capsule,delayed 90 mg PO DAILY 02/29/24 06/03/24 History release baclofen 10 mg tablet 10 mg PO TID #90 tabs 03/16/24 06/03/24 Rx azelastine 137 mcg (0.1 %) nasal 2 spray intranasal BID #30 mL 04/07/24 06/03/24 Rx spray oxybutynin chloride 10 mg 10 mg PO DAILY #90 tabs 04/18/24 06/03/24 Rx tablet,extended release 24 hr tamsulosin 0.4 mg capsule (Flomax) 0.4 mg PO DAILY #30 caps 04/18/24 06/03/24 Rx celecoxib 100 mg capsule See Rx Instructions .Route 06/08/24 Rx .COMPLEX #60 caps New Prescriptions to Start Prescriptions: Allergies Allergy/AdvReac Type Severity Reaction Status Date / Time Penicillins [PENICILLINS] Allergy Intermediate I-RASH Verified 05/20/24 06:39 tizanidine Allergy Difficulty Verified 05/20/24 06:39 Breathing Assessment and Plan *Assessment and plan (1) Chronic low back pain: Status: Acute Qualifiers: Back pain laterality: bilateral Sciatica presence: without sciatica Qualified Code(s): M54.50 - Low back pain, unspecified; G89.29 - Other chronic pain Category: Medical Code(s): M54.50 - Low back pain, unspecified; G89.29 - Other chronic pain (2) Degenerative disc disease, lumbar: Status: Acute Category: Medical Code(s): M51.36 - Other intervertebral disc degeneration, lumbar region Plan We will reach out to [employer] promotional representative and see if they can be present for his intrathecal refill next week for additional adjustment reprogramming of his stimulator. I will refill the patient's baclofen and Celebrex and provide a 3-month supply of this medication. Patient will also be given a 1 month follow-up to he and his postop restrictions. Patient was able to have the remainder of his shanel removed with Steri-Strips applied. Patient agrees with this plan of care. We will see the patient back in the clinic at the next intrathecal refill. Patient has been instructed to contact the clinic with any concerns before the next appointment. Dr. Eden has reviewed this note and agrees with this plan of care. This note was dictated using voice recognition software and make contain errors or omissions. -- It Is medically necessary for this patient to continue to have their intrathecal pump refilled at regular intervals. This patient had an intrathecal pain pump implanted after meeting criteria of chronic intractable pain for greater than 3 months and failing conservative treatments. Patient has committed and been compliant to the treatment plan and all planned follow up care. Since implantation of the intrathecal pain pump, the patient has had decreased pain and been more functional. Oral medications have been reduced including intake of oral opioids. Patient continues to do well with intrathecal therapy with decrease in pain symptoms and increase in functional status. Stopping intrathecal medications can lead to life threatening withdrawal, seizures, cardiac arrest, severe pain, and possible . Pumps that are not refilled at regular intervals can be damages and cause and need for replacement. We continually titrate dose and concentration to optimize pain relief and function. We are limited in concentration for certain drugs to safely deliver medications through the pump and stay within the recommendations from the Polyanalgesic Consensus Committee Guidelines. Depending on dose and concentration these pumps may need to be refilled sooner than 3 months as we titrate.
== END 2024-06-08 23:59 | disposition home or self-care (01) ==
PROVIDERS: PCP Nurse Practitioner Family; Visit Provider Nurse Practitioner Family
DX: M54.50 Low back pain, unspecified (principal); G89.29 Other chronic pain; M51.369 Other intervertebral disc degeneration, lumbar region without mention of lumbar back pain or lower extremity pain; Z79.899 Other long term (current) drug therapy
CPT/HCPCS: 99212; G0463

== ENCOUNTER 2024-06-14 08:14 | Day surgery (SDC) | payer OTHER, SELFPAY ==
[2024-06-14 08:37] VITALS: BP 122/81; PULSE 86; RESP 16; TEMP 36.5; O2SAT 97; BMI 34.2
[2024-06-14 08:49] VITALS: BP 122/72; PULSE 83; RESP 18; O2SAT 95
[2024-06-14 08:51] VITALS: BP 122/72; PULSE 89; RESP 18; O2SAT 95
--- NOTE | 2024-06-14 09:02 | EXP.PAIN.PRO ---
Procedure Date: 06/14/24 Time: 08:50 Anesthesiologist:: Haile Spicer CRNA Complications:: None Pre-procedure Diagnosis:: Degenerative disc lumbar spine multilevels. Lumbar radiculopathy. Lumbar postlaminectomy syndrome Post-procedure Diagnosis:: Same. Indications for Procedure:: Patient is a pleasant 38-year-old male who comes our clinic today for intrathecal pain pump interrogation and refill. Patient currently being managed with morphine sulfate 5 mg/mL at a rate of 3.0046 mg/day. He is doing very well with his current settings. He is not reporting any side effects or complications. He is not requesting any changes. He rates his pain today 5/10. Patient recent intrathecal pump exchange. Both incisions are clean and dry. Continue to be covered with Steri-Strips. No sign of infection. Patient also being managed with spinal cord stimulator. The rep is here today to reprogram. Patient is awake alert [place] x 3. In no acute distress. Flexion-extension lumbar spine somewhat guarded secondary to pain. Deep tendon reflexes upper lower extremities normal. Motor strength upper and lower extremities normal. There is no gross sensory deficit. Gait is normal. Procedure Details:: Details of the procedure explained to the patient. The patient taken procedure room placed in sitting position. They over the pumps cleansed using chlorhexidine as a cleansing solution. The pump was interrogated. The pump was accessed with ease using a 22-gauge inch and half needle. 5 mL of solution was withdrawn and discarded appropriate. The pump was then filled with 20 cc of solution containing bupivacaine 5 mg/mL. Pump rate will continue at 3.0046 mg/day. Patient tolerated procedure without difficulty. There are no complications. Plan and Disposition:: Patient was discharged without incident.
[2024-06-14 09:38] VITALS: BP 120/76; PULSE 88; RESP 16; O2SAT 94
== END 2024-06-14 09:38 | disposition home or self-care (01) ==
PROVIDERS: PCP Nurse Practitioner Family; Visit Provider Nurse Anesthetist, Certified Registered
DX: M51.16 Intervertebral disc disorders with radiculopathy, lumbar region (principal); M96.1 Postlaminectomy syndrome, not elsewhere classified
CPT/HCPCS: 95991

== ENCOUNTER 2024-06-21 15:36 | Observation (INO) | payer OTHER, SELFPAY ==
--- NOTE | 2024-06-21 16:15 | PC.NURSE ---
arrived by w/c from front lobby admissions
[2024-06-21 16:23] VITALS: BMI 34.4
[2024-06-21 16:28] VITALS: BP 159/97; PULSE 87; RESP 18; TEMP 36.7; O2SAT 96
[2024-06-21 18:12] LABS: PTT Heparin (inpatient only) 28.2 Seconds (50-75)
[2024-06-21] MEDS: ASPIRIN EC 81MG TABLET 81 MG PO (18:19)
[2024-06-21] MEDS: HEPARIN 25,000 UNITS/D5W 500 ML 40 UNIT IV (18:35)
[2024-06-21] MEDS: HEPARIN SODIUM 5,000 UNIT/ML VIAL 10000 UNIT IV (18:35)
[2024-06-21] MEDS: HEPARIN DRIP CONSULT 1 EACH NOTAPPLIC (18:35)
--- NOTE | 2024-06-21 19:19 | PC.NURSE ---
a&ox4. tolerating RA w/ sats>90%. no complaints of pain. no palpable pulse in rt foot, easily heard with doppler. bolus dose of heparin given and drip started @ 40ml/hr. pt has no complaints at this time. call light within reach.
[2024-06-21 20:00] VITALS: BP 161/103; PULSE 78; RESP 18; TEMP 36.7; O2SAT 99
[2024-06-21] MEDS: ATORVASTATIN 40MG TABLET 40 MG PO (21:42)
[2024-06-21] MEDS: ACETAMINOPHEN 325MG TAB 650 MG PO (21:42)
[2024-06-21 22:06] LABS: PTT Heparin (inpatient only) 43.9 Seconds (50-75)
[2024-06-21] MEDS: HEPARIN SODIUM 5,000 UNIT/ML VIAL 9500 UNIT IV (22:27)
--- NOTE | 2024-06-21 22:31 | PC.NURSE ---
PC from Marv at [facility] pharmacy with new orders for heparin dose for pt, see OCT, Order for next PTT at 2 am.
[2024-06-22] VITALS: BP 129/94; PULSE 78; RESP 16; TEMP 36.8; O2SAT 98
[2024-06-22] MEDS: HEPARIN 25,000 UNITS/D5W 500 ML 33 UNIT IV (03:20)
[2024-06-22 04:00] VITALS: BMI 34.6
[2024-06-22 07:31] LABS: Basophils # 0.1 K/mm3 (0-0.2); Basophils % 0.9 % (0.1-2.0); Eosinophils # 0.2 K/mm3 (0.0-0.4); Eosinophils % 3.5 % (0.1-12.0); Hematocrit 42.3 % (42.0-52.0); Hemoglobin 14.7 g/dL (14.1-18.0); Lymphocytes # 2.3 K/mm3 (0.7-4.5); Mean Corpuscular HGB Conc 34.6 g/dL (31.8-35.4); Mean Corpuscular Hemoglobin 30.4 pg (27.0-31.2); Mean Corpuscular Volume 87.7 fl (80-94); Mean Platelet Volume 7.5 fl (7.4-10.4); Monocytes # 0.6 K/mm3 (0.1-1.0); Monocytes % 8.6 % (1.7-9.3); Neutrophils # 3.6 K/mm3 (1.8-7.8); Platelet Count 259 K/mm3 (142-424); Red Blood Count 4.82 M/mm3 (4.60-6.20); Red Cell Distribution Width 14.4 % (11.5-17.5); White Blood Count 6.7 K/mm3 (4.8-10.8)
[2024-06-22 07:36] LABS: PTT Heparin (inpatient only) 192.7 Seconds (50-75)
[2024-06-22 07:46] LABS: Alanine Aminotransferase 84 U/L (12-78); Albumin Level 4.5 g/dl (3.5-5.0); Albumin/Globulin Ratio 1.8 (1.1-1.8); Alkaline Phosphatase 77 U/L (38-126); Anion Gap 10.7 mEq/L (5-15); Aspartate Amino Transferase 63 U/L (17-59); Bilirubin,Total 0.9 mg/dl (0.2-1.3); Blood Urea Nitrogen 11 mg/dl (9-20); Calcium 8.9 mg/dl (8.4-10.2); Carbon Dioxide 28 mmol/L (22.0-30.0); Chloride 105 mmol/L (98-107); Chol/HDL Ratio 4.3 (1-3.5); Cholesterol 155 mg/dl (140-200); Creatinine Clearance Estimated 190 mL/min (50-200); Estimated Glomerular Filt Rate 95 ml/min (>60); GFR (African American) 116 ML/MIN (>60); Globulin 2.5 g/dL (1.3-3.2); Glucose 103 mg/dl (74-100); HDL Cholesterol 36 mg/dl (40-60); Magnesium 2.2 mg/dl (1.6-2.3); Potassium 3.7 mmoL/L (3.5-5.1); Sodium 140 mmol/L (136-145); Triglycerides 118 mg/dl (30-150); VLDL Cholesterol 24 mg/dL (0-40)
[2024-06-22 07:47] VITALS: BP 139/70; PULSE 78; RESP 16; TEMP 36.9; O2SAT 100
[2024-06-22 07:48] LABS: Free T4 (Free Thyroxine) 1.26 ng/dl (0.78-2.19)
[2024-06-22 08:01] LABS: PTT Heparin (inpatient only) 104.4 Seconds (50-75)
--- NOTE | 2024-06-22 08:05 | HMH.PHAINT1 ---
Pharmacy Intervention Comments: HOME MEDICATIONS VERIFIED VIA OUTPATIENT PHARMACY AND PATIENT INTERVIEW
[2024-06-22 08:09] LABS: Hemoglobin A1C 5.5 % (4.0-6.0)
[2024-06-22 08:16] LABS: Thyroid Stimulating Hormone 2.36 uIU/mL (0.465-4.68)
[2024-06-22] MEDS: ASPIRIN EC 81MG TABLET 81 MG PO (08:22)
[2024-06-22] MEDS: HEPARIN 25,000 UNITS/D5W 500 ML 22 UNIT IV (08:22)
--- NOTE | 2024-06-22 08:41 | HMH.PHAHEP ---
[facility] Pharmacy Heparin Dosing Demographic Data Admission date:: 06/22/24 Date: 06/22/24 Time: 08:41 Allergies Allergy/AdvReac Type Severity Reaction Status Date / Time Penicillins (PENICILLINS) Allergy Intermediate I-RASH Verified 05/20/24 06:39 tizanidine Allergy Difficulty Verified 05/20/24 06:39 Breathing Height: 1.85 m Weight: 118.44 kg Indication Medication therapy:: Heparin Current Active Problems (Updated 06/22/24 @ 18:11 by Ashlee Renteria APRN) Change of skin color (Acute) Decreased pedal pulses (Acute) Keratosis (Acute) Painful legs and moving toes of right foot (Acute) Avulsion of nail plate (Acute) Onychomycosis (Acute) Onychodystrophy (Acute) Chronic HFrEF (heart failure with reduced ejection fraction) (Acute) Right foot infection (Acute) Edema of right foot (Acute) Chronic low back pain (Acute) SOB (shortness of breath) (Acute) Hypertensive disorder (Chronic) Cardiomyopathy (Acute) CVA?: No Bleeding problem?: No Kidney disease?: No IA?: No Desired PTT range:: 50-75 seconds Labs Anticoagulation Lab Results:: 06/22/24 07:18 Hgb 14.7 Hct 42.3 Plt Count 259 Monitoring Dose Monitor 1: Date: 06/21/24 Time: 17:33 PTT Result:: 28.2 Infusion Rate:: 64640 UNIT BOLUS, 2000 UNIT/HR Dose Monitor 2: Date: 06/21/24 Time: 20:15 PTT Result:: 43.9 Infusion Rate:: BOLUS 9500 UNITS, 2000 UNITS/HR Dose Monitor 3: Date: 06/22/24 Time: 02:05 PTT Result:: 200.0 Infusion Rate:: 1650 UNITS/HR Dose Monitor 4: Date: 06/22/24 Time: 04:40 PTT Result:: 192.7 Infusion Rate:: 1300 UNITS/HR Dose Monitor 5: Date: 06/22/24 Time: 07:36 PTT Result:: 104.4 Infusion Rate:: 1100 UNITS/HR Dose Monitor 6: Date: 06/22/24 Time: 10:40 PTT Result:: 52.1 Infusion Rate:: CONTINUE WITH HEPARIN 22 ML/HR Dose Monitor 7: Date: 06/22/24 Time: 12:30 PTT Result:: 44.4 Infusion Rate:: INCREASE RATE OF HEPARIN TO 26 ML/HR AND REBOLUS WITH 3000 UNITS. Dose Monitor 8: Date: 06/22/24 Time: 17:33 PTT Result:: 43.9 Infusion Rate:: INCREASED HEPARIN DRIP RATE TO 31 ML/HR AND REBOLUSED WITH HEPARIN 3000 UNITS. Dose Monitor 9: Date: 06/23/24 Time: 00:26 PTT Result:: 60.5 Infusion Rate:: CONTINUE WITH HEPARIN 31 ML/HR Core Measures Is INR > or = 2 at discharge?: No Most Recent Labs:: Laboratory Results - last 24 hr 06/21/24 17:33: APTT 28.2 L 06/21/24 20:15: APTT 43.9 L 06/22/24 02:05: APTT 200.0 H* 06/22/24 04:40: APTT 192.7 H* 06/22/24 07:18: WBC 6.7, RBC 4.82, Hgb 14.7, Hct 42.3, MCV 87.7, MCH 30.4, MCHC 34.6, RDW 14.4, Plt Count 259, MPV 7.5, Neut % (Auto) 53.0, Lymph % (Auto) 34.0, [place] % (Auto) 8.6, Eos % (Auto) 3.5, Baso % (Auto) 0.9, Neut # (Auto) 3.6, Lymph # (Auto) 2.3, [place] # (Auto) 0.6, Eos # (Auto) 0.2, Baso # (Auto) 0.1, APTT 104.4 H*, Sodium 140, Potassium 3.7, Chloride 105, Carbon Dioxide 28, Anion Gap 10.7, BUN 11, Creatinine 0.90, Estimated Creat Clear 190, Estimated GFR 95, Est GFR ( Amer) 116, Glucose 103 H, Hemoglobin A1c 5.5, Calcium 8.9, Magnesium 2.2, Total Bilirubin 0.9, AST 63 H, ALT 84 H, Alkaline Phosphatase 77, Total Protein 7.0, Albumin 4.5, Globulin 2.5, Albumin/Globulin Ratio 1.8, Triglycerides 118, Cholesterol 155, LDL Cholesterol Direct 99.60 L, VLDL Cholesterol 24, HDL Cholesterol 36 L, Cholesterol/HDL Ratio 4.3 H, TSH 2.36, Free T4 1.26 If INR was < than 2.0 why was therapy stopped?: XARELTO STARTED Were Heparin and Warfarin started on the same day?: No If not, why?: XARELTO STARTED
--- NOTE | 2024-06-22 09:10 | EXP.HP ---
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 for concerns of right limb ischemia. Patient states he has been having right foot paresthesias for the few days, and that his toes had fallen off in the last few days. Denies any recent trauma, fever/chills. Yesterday, he has noticed his right foot became slightly blue discoloration especially in the toes. His PCP contacted Dr. Perez who agreed for peripheral cath. I discussed this case with both Dr. Perez and the PCP and decided to accept patient for transfer. [facility] Disclaimer: The information contained in this section may have been updated after the patient was seen, as this information can be updated by other users. Medical History (Updated 06/22/24 @ 15:11 by Inocencia Scott APRN) Chronic HFrEF (heart failure with reduced ejection fraction) Right foot infection Edema of right foot History of urinary frequency Tinnitus Impacted cerumen, bilateral Hearing difficulty of both ears History of esophageal dilatation Fatty liver Gpvoq-1-nsizlrpxjnc deficiency Esophageal stricture LV dysfunction Cardiomyopathy Anxiety Hypertension Daytime somnolence Snoring Fatigue Systolic heart failure Abnormal result of cardiovascular function study Abnormal electrocardiogram [ECG] [EKG] Surgical History History of surgery History of arthroplasty of right hip H/O lumbar discectomy History of right knee surgery History of tonsillectomy and adenoidectomy History of appendectomy Family History Other Diabetes Family history non-contributory Social History Smoking Status: Never smoker second hand exposure: No alcohol intake: never substance use type: denies use current occupational status: other Travel in the last 8 weeks: None household members: spouse housing: house current occupation: [employer] current occupational exposures/hazards: No caffeine: Yes Other Medical History Have you received the Flu Vaccine for this season: Yes Have you received the Pneumonia Vaccine: No Meds Home Medications and Allergies Home Medications ?Medication ?Instructions ?Recorded ?Confirmed ?Type famotidine 40 mg tablet 40 mg PO DAILY 05/19/22 06/21/24 History multivitamin 1 tab PO DAILY SUPPLIMENT 08/13/22 06/21/24 History pantoprazole 40 mg tablet,delayed 40 mg PO BID 10/02/22 06/21/24 History release quetiapine 100 mg tablet 100 mg PO HS 05/12/23 06/21/24 History oxcarbazepine 150 mg tablet 150 mg PO BID 07/21/23 06/21/24 History (Trileptal) metoprolol succinate 25 mg 25 mg PO BID #180 tabs 09/03/23 06/21/24 Rx tablet,extended release 24 hr (Toprol XL) dapagliflozin propanediol 5 mg 5 mg PO DAILY #90 tabs 10/15/23 06/21/24 Rx tablet (Farxiga) sacubitril 49 mg-valsartan 51 mg 1 tab PO BID #60 tabs 12/08/23 06/21/24 Rx tablet (Entresto) buspirone 15 mg tablet 15 mg PO TID 02/29/24 06/21/24 History doxepin 25 mg capsule 25 mg PO HS 02/29/24 06/21/24 History duloxetine 30 mg capsule,delayed 90 mg PO DAILY 02/29/24 06/21/24 History release azelastine 137 mcg (0.1 %) nasal 2 spray intranasal BID #30 mL 04/07/24 06/21/24 Rx spray oxybutynin chloride 10 mg 10 mg PO DAILY #90 tabs 04/18/24 06/21/24 Rx tablet,extended release 24 hr tamsulosin 0.4 mg capsule (Flomax) 0.4 mg PO DAILY #30 caps 04/18/24 06/21/24 Rx baclofen 10 mg tablet 10 mg PO TID #90 tabs 06/08/24 06/21/24 Rx celecoxib 100 mg capsule 100 mg PO BID 06/22/24 06/22/24 History clobetasol 0.05 % shampoo 1 applic topical DAILYP PRN Skin 06/22/24 06/22/24 History Irritation clobetasol 0.05 % topical ointment 1 applic topical TIDP PRN Itching 06/22/24 06/22/24 History ketoconazole 2 % topical cream 1 applic topical BIDP PRN Skin 06/22/24 06/22/24 History Irritation New Prescriptions to Start Prescriptions: Allergies Allergy/AdvReac Type Severity Reaction Status Date / Time Penicillins (PENICILLINS) Allergy Intermediate I-RASH Verified 05/20/24 06:39 tizanidine Allergy Difficulty Verified 05/20/24 06:39 Breathing Exam Data for Last 24 hours Vital signs and Labs for Last 24 Hours: Temp Pulse Resp BP Pulse Ox O2 Del Method 98.4 F 78 16 139/70 100 Room Air 06/22/24 07:47 06/22/24 07:47 06/22/24 07:47 06/22/24 07:47 06/22/24 07:47 06/22/24 08:27 Laboratory Results - last 24 hr 06/21/24 17:33: APTT 28.2 L 06/21/24 20:15: APTT 43.9 L 06/22/24 02:05: APTT 200.0 H* 06/22/24 04:40: APTT 192.7 H* 06/22/24 07:18: WBC 6.7, RBC 4.82, Hgb 14.7, Hct 42.3, MCV 87.7, MCH 30.4, MCHC 34.6, RDW 14.4, Plt Count 259, MPV 7.5, Neut % (Auto) 53.0, Lymph % (Auto) 34.0, [place] % (Auto) 8.6, Eos % (Auto) 3.5, Baso % (Auto) 0.9, Neut # (Auto) 3.6, Lymph # (Auto) 2.3, [place] # (Auto) 0.6, Eos # (Auto) 0.2, Baso # (Auto) 0.1, APTT 104.4 H*, Sodium 140, Potassium 3.7, Chloride 105, Carbon Dioxide 28, Anion Gap 10.7, BUN 11, Creatinine 0.90, Estimated Creat Clear 190, Estimated GFR 95, Est GFR ( Amer) 116, Glucose 103 H, Hemoglobin A1c 5.5, Calcium 8.9, Magnesium 2.2, Total Bilirubin 0.9, AST 63 H, ALT 84 H, Alkaline Phosphatase 77, Total Protein 7.0, Albumin 4.5, Globulin 2.5, Albumin/Globulin Ratio 1.8, Triglycerides 118, Cholesterol 155, LDL Cholesterol Direct 99.60 L, VLDL Cholesterol 24, HDL Cholesterol 36 L, Cholesterol/HDL Ratio 4.3 H, TSH 2.36, Free T4 1.26 I & O for Last 24 hours: Intake & Output 06/19/24 06/20/24 06/21/24 06/22/24 23:59 23:59 23:59 23:59 Intake Total 480 / 480 Output Total 0 / 0 0 / 0 Balance 480 / 480 0 / 0 Weight 118.444 kg 118.44 kg Constitutional Constitutional: no acute distress *Routine HEENT Exam Head: Present normocephalic Eye: Present EOMI and PERRL ENT: Present mucous membranes moist *Routine Neck Exam Neck: Present supple; Absent lymphadenopathy *Routine Respiratory Exam Respiratory: Present CTA bilaterally *Routine Cardiovascular Exam Cardiovascular: Present RRR *Routine Abdominal Exam Abdominal: Present soft and normoactive bowel sounds; Absent tenderness *Routine Rectal Exam Rectal:: deferred *Routine Genitalia Exam Genitalia:: deferred *Routine Extremities Exam Extremities: Present pulses intact; Absent cyanosis, clubbing or edema Comments: Right foot 3rd-5th toes without toenails and mild surrounding erythema. Nontender to touch. No drainage. Bounding pulses bilaterally. *Routine Skin Exam Skin: Present warm; Absent rash *Routine Neurological Exam Neurological: Present alert and oriented X3 Assessment and Plan *Assessment and plan (1) Chronic HFrEF (heart failure with reduced ejection fraction): Status: Acute Category: Medical Code(s): I50.22 - Chronic systolic (congestive) heart failure (2) Edema of right foot: Status: Acute Category: Medical Code(s): R60.0 - Localized edema (3) Chronic low back pain: Status: Acute Qualifiers: Back pain laterality: bilateral Sciatica presence: without sciatica Qualified Code(s): M54.50 - Low back pain, unspecified; G89.29 - Other chronic pain Category: Medical Code(s): M54.50 - Low back pain, unspecified; G89.29 - Other chronic pain Plan Bill Tesfaye is a 38-year-old male with a medical history significant for 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 for concerns of right limb ischemia. Patient states he has been having right foot paresthesias for the few days, and that his toes had fallen off in the last few days. Denies any recent trauma, fever/chills. Yesterday, he has noticed his right foot became slightly blue discoloration especially in the toes. His PCP contacted Dr. Perez who agreed for peripheral cath. I discussed this case with both Dr. Perez and the PCP and decided to accept patient for transfer. #Suspected PAD ? On arrival, patient did not have cyanosis/mottling or absent pulses that he did at his PCPs office, especially compared to pictures sent by his PCP. ? Dr. Perez accepted patient for peripheral catheterization tomorrow, n.p.o. at midnight. ? Aspirin, statin. 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 ? Resume home medications once reconciled. #Anxiety/depression ? Resume home medications once reconciled #GERD ? Continue home PPI. Full code DVT prophylaxis: Lovenox 40
[2024-06-22 11:16] LABS: PTT Heparin (inpatient only) 52.1 Seconds (50-75)
[2024-06-22 11:34] VITALS: BP 133/84; PULSE 80; RESP 16; TEMP 36.6; O2SAT 99
[2024-06-22 12:44] LABS: PTT Heparin (inpatient only) 44.4 Seconds (50-75)
[2024-06-22] MEDS: HEPARIN SODIUM 5,000 UNIT/ML VIAL 3000 UNIT IV ×2 (13:01→18:48)
--- NOTE | 2024-06-22 14:49 | CA_ITS ---
FINAL REPORT CLINICAL HISTORY: EDEMA RT FOOT,CYANOTIC RT FOOT,PAIN BLE'S FINDINGS: Color Doppler, duplex Doppler and compression sonography of the bilateral lower extremities was performed. There is no evidence of deep venous thrombosis from the level of the groin to the calf. The deep veins are patent and compressible. IMPRESSION: No evidence of deep venous thrombosis bilateral lower extremities. Reviewed, Interpreted and Dictated by Ashu Melton III, MD Transcribed by Tori Peres Authenticated and . [facility]
--- NOTE | 2024-06-22 14:49 | CA_ITS ---
APPROVED REPORT EXAM: Comprehensive 2D, Doppler, and color-flow Echocardiogram Roll Grinder: Justina Prince RVT Ht: 6 ft 1 in Wt: 261lbs BSA: 2.41 BP: 139/70 mmHg Indications: CYANOTIC RIGHT FOOT,CM,HTN Echo Enhancing Agent Indication: Rule out thrombus Agent(s) / Amount(s) Used: Definity 2 cc 2D Dimensions IVSd 1.25 cm M: 0.6-1.2 LVEF (Visual) 49.50 % PWd 0.84 cm M: 0.6 - 1.2 LVDd 5.26 cm M: 4.2 - 5.9 LVDs 3.93 cm M: 2.5 - 4.0 M-Mode Dimensions LA Diam 2.80 cm (1.9-4.0) LV Diastology E Decel Time 143 (160-240 msec) E/A Ratio 1.2 Aortic Valve AO Peak GR. 4.20 mmHg Mitral Valve MV E Max Moisés. 66.0 (40-130 cm/s) MV A Velocity 57.0 (40-130 cm/s) E/A Ratio 1.18 MV PHT 42.0 ms Pulmonary Valve PV Peak Velocity 123.0 (50-150 cm/s) Tricuspid Valve TR P. Velocity 192.00 cm/s RAP Estimate 10.00 mmHg RVSP 24.70 mmHg Left Ventricle The left ventricle is normal size. The left ventricular systolic function is mildly reduced. There is increased LV wall thickness. There is mild global hypokinesis present. There is moderate hypokinesis of the septal and anteroseptal LV mccloud. Grade 1 diastolic dysfunction. No left ventricle thrombus noted on this study. LVEF is 45%. Right Ventricle The right ventricle is normal size. The right ventricular systolic function is normal. Atria The left atrium size is normal. The right atrium size is normal. There is no color Doppler evidence of interatrial shunt. Aortic Valve The aortic valve opens well. There is no aortic valvular stenosis. No aortic regurgitation is present. Mitral Valve The mitral valve is normal in structure. No evidence of mitral valve stenosis. Trace mitral regurgitation. Tricuspid Valve Tricuspid valve is grossly normal in structure and function. Trace tricuspid regurgitation. There is insufficient TR jet to estimate RVSP. Pulmonic Valve The pulmonary valve is normal in structure. Trace pulmonic regurgitation. Great Vessels The aortic root is normal in size. The ascending aorta is not well-visualized. IVC is normal in size and collapses >50% with inspiration. Pericardium There is no pericardial effusion. Other Information Study Quality: Fair Conclusion Mildly reduced LV systolic function (LVEF 45%). Moderate hypokinesis of the septal and anteroseptal LV mccloud. No significant valvular stenosis or regurgitation. No left ventricle thrombus noted on this study. Electronically signed by : Taylor Veras MD 06/23/2024 00:07:09
--- NOTE | 2024-06-22 14:49 | CT_ITS ---
PROCEDURE INFORMATION: Exam: CTA Abdominal Aorta and Bilateral Lower Extremities (Run-off) With Contrast Exam date and time: 06/22/2024 4:17 PM Age: 38 years old Clinical indication: Discoloration or erythema and numbness and other: Swelling; Foot; Bilateral; Additional info: Foot edema, discoloration TECHNIQUE: Imaging protocol: Computed tomographic angiography of the of the abdominal aorta, pelvis and bilateral lower extremities with contrast. 3D rendering (Not supervised by radiologist): MIP and/or 3D reconstructed images were created by the technologist. Radiation optimization: All CT scans at this facility use at least one of these dose optimization techniques: automated exposure control; mA and/or kV adjustment per patient size (includes targeted exams where dose is matched to clinical indication); or iterative reconstruction. Contrast material: ISOVUE 370; Contrast volume: 120 ml; Contrast route: INTRAVENOUS (IV); COMPARISON: CT ANGIO ABDOMEN/FEMORAL 06/22/2024 4:17 PM FINDINGS: Tubes, catheters and devices: There is a spinal stimulator in place. There is a pelvic stimulator in place. Aorta: No aortic aneurysm. No aortic dissection. Celiac trunk and mesenteric arteries: No occlusion or significant stenosis. Renal arteries: There are two accessory right renal arteries. Right iliac arteries: No occlusion or significant stenosis. Right femoral/popliteal arteries: No occlusion or significant stenosis. Right infrapopliteal arteries: No occlusion or significant stenosis. Left iliac arteries: No occlusion or significant stenosis. Left femoral/popliteal arteries: No occlusion or significant stenosis. Left infrapopliteal arteries: No occlusion or significant stenosis. Liver: There is diffuse fatty infiltration throughout the liver. Gallbladder and biliary ducts: Unremarkable. No calcified stones. No ductal dilation. Pancreas: Unremarkable. No mass. No ductal dilation. Spleen: There are multiple calcifications in the spleen most likely reflects small granulomas. Adrenal glands: Normal. No mass. Kidneys and ureters: Normal. No mass. Stomach and bowel: Unremarkable. No obstruction. No mucosal thickening. Appendix: Patient is status post appendectomy. Urinary bladder: Unremarkable. No mass. Reproductive: Unremarkable as visualized. Intraperitoneal space: Unremarkable. No free air. No significant fluid collection. Lymph nodes: No lymphadenopathy. Bones/joints: No acute fracture. No dislocation. Soft tissues: Laxity of the ventral abdominal wall consistent with diastasis recti. IMPRESSION: 1. No acute abnormalities. Normal bilateral lower extremity runoff without evidence for significant inflow or outflow disease. 2. Hepatic steatosis.
--- NOTE | 2024-06-22 14:51 | PC.NURSE ---
PT IS RESTING IN BED. ALERT AND ORIENTED X4. AMBULATED TO THE BATHROOM. NPO FOR CARDIOLOGY CONSULT. LUNG SOUNDS CLEAR. ABDOMEN SOFT/NON TENDER WITH ACTIVE BOWEL SOUNDS. SWELLING NOTED TO BLE. WEAK PALPABLE PEDAL PULSE NOTED TO RLE (MISSING TOENAILS NOTED). 1 + PALPABLE PULSE NOTED TO LLE. PT STATES HE HAS BEEN HAVING NUMBNESS/TINGLING IN THE RLE MORE SO WHEN STANDING. WILL CONTINUE TO MONITOR.
--- NOTE | 2024-06-22 14:55 | P.CONCA_ITS ---
History of Present Illness History of Present Illness Consult date: 06/22/24 Requesting physician: Walter Vásquez Chief complaint: right foot disoloration and edema History of present illness: This is a 38-year-old white gentleman who was admitted to the hospital with concerns of an ischemic right foot. The patient was evaluated by his primary care provider and called cardiology and said that the patient had a cold right foot so he was directly admitted to the hospital. On exam the patient's foot is not cold this afternoon and he does have palpable pulses in his bilateral lower extremities. On his right foot the tips of all of his toes are red in color which almost look like cellulitis. His toenails have fallen off on 3 of his toes to the right lower extremity. His left lower extremity is a little cooler to the touch than the right and there are no toe discolorations or foot discolorations noted to the left foot. The patient states that his toes on his right foot started to turn red approximately 1 week ago and then his toenails fell off a few days ago. He went to see his primary care provider who was concerned that he had an ischemic right foot and had the patient admitted to the hospital. He denies any chest pain or pressure. He states that he does have shortness of breath intermittently. This is typically with exertion and improves with rest. He does have edema noted to the right foot. He denies any fevers but states he has been having chills for the last week as well when he noticed that his toes were starting to appear red in color. He denies nausea, vomiting, diarrhea, PND or orthopnea. The patient does have numbness in his bilateral feet as well. [facility] Disclaimer: The information contained in this section may have been updated after the patient was seen, as this information can be updated by other users. Medical History (Updated 06/22/24 @ 15:11 by Inocencia Scott APRN) Chronic HFrEF (heart failure with reduced ejection fraction) Right foot infection Edema of right foot History of urinary frequency Tinnitus Impacted cerumen, bilateral Hearing difficulty of both ears History of esophageal dilatation Fatty liver [id number] deficiency Esophageal stricture LV dysfunction Cardiomyopathy Anxiety Hypertension Daytime somnolence Snoring Fatigue Systolic heart failure Abnormal result of cardiovascular function study Abnormal electrocardiogram [ECG] [EKG] Surgical History History of surgery History of arthroplasty of right hip H/O lumbar discectomy History of right knee surgery History of tonsillectomy and adenoidectomy History of appendectomy Family History Other Diabetes Family history non-contributory Social History Smoking Status: Never smoker second hand exposure: No alcohol intake: never substance use type: denies use current occupational status: other Travel in the last 8 weeks: None household members: spouse housing: house current occupation: [employer] current occupational exposures/hazards: No caffeine: Yes Review of Systems Review of Systems Review of systems:: pertinent systems reviewed and negative unless documented below Constitutional Constitutional: Reports system reviewed and no additional complaints, except as documented and Reports chills Eyes Eyes: Reports system reviewed and no additional complaints, except as documented ENT Ears, Nose, Mouth, and Throat: Reports system reviewed and no additional complaints, except as documented *Cardiovascular Cardiovascular: Reports system reviewed and no additional complaints, except as documented, Denies chest pain, Reports dyspnea and Reports leg edema *Respiratory Respiratory: Reports system reviewed and no additional complaints, except as documented and Reports dyspnea *Gastrointestinal Gastrointestinal: Reports system reviewed and no additional complaints, except as documented *Genitourinary Genitourinary: Reports system reviewed and no additional complaints, except as documented *Musculoskeletal Musculoskeletal: Reports system reviewed and no additional complaints, except as documented and Reports numbness Integumentary/Breasts Skin/Breast: Reports system reviewed and no additional complaints, except as documented *Neurologic Neurologic: Reports system reviewed and no additional complaints, except as documented and Reports numbness Psychiatric Psychiatric: Reports system reviewed and no additional complaints, except as documented Endocrine Endocrine: Reports system reviewed and no additional complaints, except as documented Hematologic/Lymphatic Hematologic/Lymphatic: Reports system reviewed and no additional complaints, except as documented Allergic/Immunologic Allergic/Immunologic: Reports system reviewed and no additional complaints, except as documented Exam Data for Last 24 hours Vital signs and Labs for Last 24 Hours: Temp Pulse Resp BP Pulse Ox O2 Del Method 97.9 F 80 16 133/84 99 Room Air 06/22/24 11:34 06/22/24 11:34 06/22/24 11:34 06/22/24 11:34 06/22/24 11:34 06/22/24 14:41 Laboratory Results - last 24 hr 06/21/24 17:33: APTT 28.2 L 06/21/24 20:15: APTT 43.9 L 06/22/24 02:05: APTT 200.0 H* 06/22/24 04:40: APTT 192.7 H* 06/22/24 07:18: WBC 6.7, RBC 4.82, Hgb 14.7, Hct 42.3, MCV 87.7, MCH 30.4, MCHC 34.6, RDW 14.4, Plt Count 259, MPV 7.5, Neut % (Auto) 53.0, Lymph % (Auto) 34.0, [place] % (Auto) 8.6, Eos % (Auto) 3.5, Baso % (Auto) 0.9, Neut # (Auto) 3.6, Lymph # (Auto) 2.3, [place] # (Auto) 0.6, Eos # (Auto) 0.2, Baso # (Auto) 0.1, APTT 104.4 H*, Sodium 140, Potassium 3.7, Chloride 105, Carbon Dioxide 28, Anion Gap 10.7, BUN 11, Creatinine 0.90, Estimated Creat Clear 190, Estimated GFR 95, Est GFR ( Amer) 116, Glucose 103 H, Hemoglobin A1c 5.5, Calcium 8.9, Magnesium 2.2, Total Bilirubin 0.9, AST 63 H, ALT 84 H, Alkaline Phosphatase 77, Total Protein 7.0, Albumin 4.5, Globulin 2.5, Albumin/Globulin Ratio 1.8, Triglycerides 118, Cholesterol 155, LDL Cholesterol Direct 99.60 L, VLDL Cholesterol 24, HDL Cholesterol 36 L, Cholesterol/HDL Ratio 4.3 H, TSH 2.36, Free T4 1.26 06/22/24 10:40: APTT 52.1 06/22/24 12:20: APTT 44.4 L I & O for Last 24 hours: Intake & Output 06/19/24 06/20/24 06/21/24 06/22/24 23:59 23:59 23:59 23:59 Intake Total 480 / 480 Output Total 0 / 0 0 / 0 Balance 480 / 480 0 / 0 Weight 261 lb 2 oz 261 lb 1.848 oz Constitutional Constitutional: no acute distress and average body habitus *Routine HEENT Exam Head: Present normocephalic and atraumatic ENT: Present mucous membranes moist *Routine Neck Exam Neck: Present supple, full ROM and normal carotid upstroke; Absent JVD, carotid bruit or lymphadenopathy *Routine Respiratory Exam Respiratory: Present CTA bilaterally, normal respiratory effort, able to speak in complete sentences and symmetric chest movement *Routine Cardiovascular Exam Cardiovascular: Present RRR, Normal S1 and Normal S2; Absent murmur or gallop *Routine Abdominal Exam Abdominal: Present soft and normoactive bowel sounds; Absent tenderness, distended or organomegaly *Routine Extremities Exam Extremities: Present edema (Edema to the right foot), full ROM, pulses intact (Bilateral DP pulses palpated) and normal capillary refill; Absent cyanosis or clubbing *Routine Skin Exam Skin: Present intact, erythema (Erythema noted to the tips of all of his toes on his right foot) and warm *Routine Neurological Exam Neurological: Present alert, oriented X3 and CN II-XII intact; Absent sensory deficit or motor deficit Routine Psychiatric Exam Psychiatric: Present normal affect Meds Home Medications and Allergies Home Medications ?Medication ?Instructions ?Recorded ?Confirmed ?Type famotidine 40 mg tablet 40 mg PO DAILY 05/19/22 06/21/24 History multivitamin 1 tab PO DAILY SUPPLIMENT 08/13/22 06/21/24 History pantoprazole 40 mg tablet,delayed 40 mg PO BID 10/02/22 06/21/24 History release quetiapine 100 mg tablet 100 mg PO HS 05/12/23 06/21/24 History oxcarbazepine 150 mg tablet 150 mg PO BID 07/21/23 06/21/24 History (Trileptal) metoprolol succinate 25 mg 25 mg PO BID #180 tabs 09/03/23 06/21/24 Rx tablet,extended release 24 hr (Toprol XL) dapagliflozin propanediol 5 mg 5 mg PO DAILY #90 tabs 10/15/23 06/21/24 Rx tablet (Farxiga) sacubitril 49 mg-valsartan 51 mg 1 tab PO BID #60 tabs 12/08/23 06/21/24 Rx tablet (Entresto) buspirone 15 mg tablet 15 mg PO TID 02/29/24 06/21/24 History doxepin 25 mg capsule 25 mg PO HS 02/29/24 06/21/24 History duloxetine 30 mg capsule,delayed 90 mg PO DAILY 02/29/24 06/21/24 History release azelastine 137 mcg (0.1 %) nasal 2 spray intranasal BID #30 mL 04/07/24 06/21/24 Rx spray oxybutynin chloride 10 mg 10 mg PO DAILY #90 tabs 04/18/24 06/21/24 Rx tablet,extended release 24 hr tamsulosin 0.4 mg capsule (Flomax) 0.4 mg PO DAILY #30 caps 04/18/24 06/21/24 Rx baclofen 10 mg tablet 10 mg PO TID #90 tabs 06/08/24 06/21/24 Rx celecoxib 100 mg capsule 100 mg PO BID 06/22/24 06/22/24 History clobetasol 0.05 % shampoo 1 applic topical DAILYP PRN Skin 06/22/24 06/22/24 History Irritation clobetasol 0.05 % topical ointment 1 applic topical TIDP PRN Itching 06/22/24 06/22/24 History ketoconazole 2 % topical cream 1 applic topical BIDP PRN Skin 06/22/24 06/22/24 History Irritation New Prescriptions to Start Prescriptions: Allergies Allergy/AdvReac Type Severity Reaction Status Date / Time Penicillins (PENICILLINS) Allergy Intermediate I-RASH Verified 05/20/24 06:39 tizanidine Allergy Difficulty Verified 05/20/24 06:39 Breathing Assessment and Plan *Assessment and plan (1) Edema of right foot: Status: Acute Category: Medical Code(s): R60.0 - Localized edema (2) Right foot infection: Status: Acute Category: Medical Code(s): L08.9 - Local infection of the skin and subcutaneous tissue, unspecified (3) Chronic HFrEF (heart failure with reduced ejection fraction): Status: Acute Category: Medical Code(s): I50.22 - Chronic systolic (congestive) heart failure (4) Hypertensive disorder: Status: Chronic Qualifiers: Hypertension type: essential hypertension Qualified Code(s): I10 - Essential (primary) hypertension Category: Medical Code(s): I10 - Essential (primary) hypertension (5) SOB (shortness of breath): Status: Acute Category: Medical Code(s): R06.02 - Shortness of breath (6) Cardiomyopathy: Status: Acute Qualifiers: Cardiomyopathy type: dilated Qualified Code(s): I42.0 - Dilated cardiomyopathy Category: Medical Code(s): I42.9 - Cardiomyopathy, unspecified Plan Plan: 1. Patient was admitted to the hospital due to discolored toes on his right foot and edema to the right foot. The patient does have bounding pulses bilaterally. Will do further workup to rule out ischemia of the right foot. Will plan to proceed with CTA of the abdomen/femoral to rule out PAD. 2. Will obtain a CPK, ESR and CRP in the morning. 3. Will obtain a limited echocardiogram with Definity to reevaluate his EF due to his known HFrEF and to make sure he does not have an LV thrombus that has broken off and lodged in his right lower extremity. 4. His blood pressure is well-controlled. 5. His LDL goal is less than 100. His LDL is 99. 6. Continue metoprolol, Farxiga, Entresto for HFrEF. 7. Will obtain bilateral venous duplexes due to his lower extremity edema. 8. His liver enzymes are elevated. 9. Further recommendations will be made pending the patient's response to treatment and the results of his echocardiogram, venous duplexes and CTA of the abdomen/femoral. Thank you for the opportunity to help participate in the care of this patient. All recommendations and orders are per Dr. Veras.
[2024-06-22 15:48] VITALS: BP 145/89; PULSE 100; RESP 16; TEMP 36.9; O2SAT 98
--- NOTE | 2024-06-22 15:48 | US_ITS ---
FINAL REPORT CLINICAL HISTORY: HTN, TIA, BILATERAL LEG PAIN/CLAUDICATION Right toenails have fallen off, skin is peeling off toes FINDINGS: BILATERAL ANKLE BRACHIAL INDICES Pressure indices are as follows are: RIGHT LOWER EXTREMITY Ankle brachial pressure index: 1.2 Toe brachial pressure index: 0 point COMMENTS: Normal LEFT LOWER EXTREMITY Ankle brachial pressure index: 1.2 Toe brachial pressure index: 0.9 COMMENTS: Normal IMPRESSION: No evidence of significant obstructive peripheral vascular disease of the lower extremities. Reviewed, Interpreted and Dictated by Ashu Melton III, MD Transcribed by Tori Peres Authenticated and [facility]
[2024-06-22] MEDS: DEFINITY US ECHO CONTRAST 2ML INJ 2 MG IV (16:03)
--- NOTE | 2024-06-22 16:40 | XR_ITS ---
PROCEDURE INFORMATION: Exam: XR Right Foot Exam date and time: 06/22/2024 5:17 PM Age: 38 years old Clinical indication: Pain; Foot; Right; Additional info: Pain, ischemic foot, cellulitis TECHNIQUE: Imaging protocol: Radiologic exam of the right foot. Views: 3 or more views. COMPARISON: CT ANGIO ABDOMEN/FEMORAL 06/22/2024 4:17 PM FINDINGS: Bones/joints: Normal. Soft tissues: Normal. IMPRESSION: No acute findings.
--- NOTE | 2024-06-22 16:40 | XR_ITS ---
PROCEDURE INFORMATION: Exam: XR Left Foot Exam date and time: 06/22/2024 5:17 PM Age: 38 years old Clinical indication: Pain; Foot; Left TECHNIQUE: Imaging protocol: Radiologic exam of the left foot. Views: 3 or more views. COMPARISON: CT ANGIO ABDOMEN/FEMORAL 06/22/2024 4:17 PM FINDINGS: Bones/joints: Normal. Soft tissues: Normal. IMPRESSION: No acute findings.
[2024-06-22] MEDS: SODIUM CHLORIDE 0.9% 10ML SYR (RAD ONLY) 10 ML IV (16:43)
[2024-06-22] MEDS: IOPAMIDOL-370 (76%);100ML BOTTLE 120 ML IV (16:43)
[2024-06-22] MEDS: 0.9 % SODIUM CHLORIDE 50 ML VIAL IV (16:43)
--- NOTE | 2024-06-22 16:44 | P.CONS_ITS ---
History of Present Illness *Admission Date: 06/22/24 *History of present illness: Patient is a 38-year-old male who was a former patient of ours in 2019. Patient presented to the hospital with concerns of the next ischemic right foot. Patient was evaluated by his primary care provider and had called cardiology and said the patient had a cold right foot so he was directly admitted to the hospital. Podiatry was consulted to evaluate the right ischemic foot. Upon exam the patient's foot was cool but not cold to touch bilaterally, I was able to palpate bilaterally DP/PT pedal pulses, with the left being greater than the right. Patient may have a trace of edema on the right foot but no erythema noted. Patient did have ABIs when which did not look very well he did have decent flow but the amplitude was low and could be better. Patient has been n.p.o. all day. [facility] Disclaimer: The information contained in this section may have been updated after the patient was seen, as this information can be updated by other users. Medical History (Updated 06/22/24 @ 18:11 by Ashlee Renteria APRN) Chronic HFrEF (heart failure with reduced ejection fraction) Right foot infection Edema of right foot History of urinary frequency Tinnitus Impacted cerumen, bilateral Hearing difficulty of both ears History of esophageal dilatation Fatty liver Lxpwu-2-mwewnnshlyl deficiency Esophageal stricture LV dysfunction Cardiomyopathy Anxiety Hypertension Daytime somnolence Snoring Fatigue Systolic heart failure Abnormal result of cardiovascular function study Abnormal electrocardiogram [ECG] [EKG] Surgical History History of surgery History of arthroplasty of right hip H/O lumbar discectomy History of right knee surgery History of tonsillectomy and adenoidectomy History of appendectomy Family History Other Diabetes Family history non-contributory Social History Smoking Status: Never smoker second hand exposure: No alcohol intake: never substance use type: denies use current occupational status: other Travel in the last 8 weeks: None household members: spouse housing: house current occupation: [employer] current occupational exposures/hazards: No caffeine: Yes Review of Systems *Musculoskeletal Musculoskeletal: Reports numbness *Neurologic Neurologic: Reports system reviewed and no additional complaints, except as documented and Reports numbness Meds Home Medications and Allergies Home Medications ?Medication ?Instructions ?Recorded ?Confirmed ?Type famotidine 40 mg tablet 40 mg PO DAILY 05/19/22 06/21/24 History multivitamin 1 tab PO DAILY SUPPLIMENT 08/13/22 06/21/24 History pantoprazole 40 mg tablet,delayed 40 mg PO BID 10/02/22 06/21/24 History release quetiapine 100 mg tablet 100 mg PO HS 05/12/23 06/21/24 History oxcarbazepine 150 mg tablet 150 mg PO BID 07/21/23 06/21/24 History (Trileptal) metoprolol succinate 25 mg 25 mg PO BID #180 tabs 09/03/23 06/21/24 Rx tablet,extended release 24 hr (Toprol XL) dapagliflozin propanediol 5 mg 5 mg PO DAILY #90 tabs 10/15/23 06/21/24 Rx tablet (Farxiga) sacubitril 49 mg-valsartan 51 mg 1 tab PO BID #60 tabs 12/08/23 06/21/24 Rx tablet (Entresto) buspirone 15 mg tablet 15 mg PO TID 02/29/24 06/21/24 History doxepin 25 mg capsule 25 mg PO HS 02/29/24 06/21/24 History duloxetine 30 mg capsule,delayed 90 mg PO DAILY 02/29/24 06/21/24 History release azelastine 137 mcg (0.1 %) nasal 2 spray intranasal BID #30 mL 04/07/24 06/21/24 Rx spray oxybutynin chloride 10 mg 10 mg PO DAILY #90 tabs 04/18/24 06/21/24 Rx tablet,extended release 24 hr tamsulosin 0.4 mg capsule (Flomax) 0.4 mg PO DAILY #30 caps 04/18/24 06/21/24 Rx baclofen 10 mg tablet 10 mg PO TID #90 tabs 06/08/24 06/21/24 Rx celecoxib 100 mg capsule 100 mg PO BID 06/22/24 06/22/24 History clobetasol 0.05 % shampoo 1 applic topical DAILYP PRN Skin 06/22/24 06/22/24 History Irritation clobetasol 0.05 % topical ointment 1 applic topical TIDP PRN Itching 06/22/24 06/22/24 History ketoconazole 2 % topical cream 1 applic topical BIDP PRN Skin 06/22/24 06/22/24 History Irritation New Prescriptions to Start Prescriptions: Allergies Allergy/AdvReac Type Severity Reaction Status Date / Time Penicillins (PENICILLINS) Allergy Intermediate I-RASH Verified 05/20/24 06:39 tizanidine Allergy Difficulty Verified 05/20/24 06:39 Breathing Exam (Inpt) Vital signs and Labs for Last 24 Hours: Temp Pulse Resp BP Pulse Ox O2 Del Method 98.5 F 100 H 16 145/89 H 98 Room Air 06/22/24 15:48 06/22/24 15:48 06/22/24 15:48 06/22/24 15:48 06/22/24 15:48 06/22/24 15:48 Laboratory Results - last 24 hr 06/21/24 17:33: APTT 28.2 L 06/21/24 20:15: APTT 43.9 L 06/22/24 02:05: APTT 200.0 H* 06/22/24 04:40: APTT 192.7 H* 06/22/24 07:18: WBC 6.7, RBC 4.82, Hgb 14.7, Hct 42.3, MCV 87.7, MCH 30.4, MCHC 34.6, RDW 14.4, Plt Count 259, MPV 7.5, Neut % (Auto) 53.0, Lymph % (Auto) 34.0, [place] % (Auto) 8.6, Eos % (Auto) 3.5, Baso % (Auto) 0.9, Neut # (Auto) 3.6, Lymph # (Auto) 2.3, [place] # (Auto) 0.6, Eos # (Auto) 0.2, Baso # (Auto) 0.1, APTT 104.4 H*, Sodium 140, Potassium 3.7, Chloride 105, Carbon Dioxide 28, Anion Gap 10.7, BUN 11, Creatinine 0.90, Estimated Creat Clear 190, Estimated GFR 95, Est GFR ( Amer) 116, Glucose 103 H, Hemoglobin A1c 5.5, Calcium 8.9, Magnesium 2.2, Total Bilirubin 0.9, AST 63 H, ALT 84 H, Alkaline Phosphatase 77, Total Protein 7.0, Albumin 4.5, Globulin 2.5, Albumin/Globulin Ratio 1.8, Triglycerides 118, Cholesterol 155, LDL Cholesterol Direct 99.60 L, VLDL Cholesterol 24, HDL Cholesterol 36 L, Cholesterol/HDL Ratio 4.3 H, TSH 2.36, Free T4 1.26 06/22/24 10:40: APTT 52.1 06/22/24 12:20: APTT 44.4 L I & O for Labs for Last 24 Hours: Intake & Output 06/19/24 06/20/24 06/21/24 06/22/24 23:59 23:59 23:59 23:59 Intake Total 480 / 480 Output Total 0 / 0 0 / 0 Balance 480 / 480 0 / 0 Weight 261 lb 2 oz 261 lb 1.848 oz Constitutional: Present no acute distress and cooperative Head: Present normocephalic Eye: Present as per HPI Neck: Present trachea midline Respiratory: Present normal respiratory effort, able to speak in complete sentences and symmetric chest movement Cardiac: Present posterior tibial pulses present and pedal pulses present Comment:: Cool extremities but not cold. Trace of pedal edema to the right side. Comments:: Deferred Rectal (male): Present deferred (male): Present deferred Extremities: Present tenderness (Right toes were tender to touch, patient has lost right second third and fourth toenails.); Absent calf tenderness Comment:: Patient has lost part of the right hallux nail, mild erythema to the tips of the second third and fourth toes from loss of nail, they do not appear to be infected, dried blood drainage noted in the nailbed bed, I did not attempt to clean or debride any of that away he is very tender to touch. May try to address cleaning the toes tomorrow after getting a runoff. He will be less tender. Skin: Present erythema (Mild erythema noted to the tips of right 2-4th toes from nail avulsion) and normal turgor; Absent lesions Comment:: Patient has bilateral cool extremities but no cyanotic discoloration noted. Neuro: Present Motor Function Intact, oriented x 3, tone normal and moves all extremities Comment:: Tested patient's sensation at bedside the right less then the left side. He was able to feel on both extremities but the right side was dull sensation and not sharp. Patient states history of low back pain, degenerative disc disease. Ankle: right: swelling (trace edema ) and bilateral: decreased ROM Feet/Toes: right: erythema (Right 2-4 toes, nails came off) and right: tenderness (Right foot and toes tender to touch) and bilateral: nail abnormalities, bilateral: onychomycosis, bilateral: swelling (Trace b/l pedal edema ) and bilateral: decreased ROM Inspection: Present nail disorder and skin break (Right hallux medial side had small piece of nail off, missing nails 2-4, nail bed has dried blood and mild erythema noted. ) Pulses: L dorsalis pedis pulse: normal, R dorsalis pedis pulse: normal, L posterior tibial pulse: normal and R posterior tibial pulse: normal CFT: normal: CFT Monofilament exam: L 1st metatarsals: normal, L 3rd metatarsals: normal, L 5th metatarsals: normal, L great toe: normal, L 3rd toe: normal, L 5th toe: normal, R 1st metatarsals: decreased (present but decreased, noted sensation as dull and not sharp ), R 3rd metatarsals: decreased, R 5th metatarsals: decreased, R great toe: decreased, R 3rd toe: decreased and R 5th toe: decreased Pinprick: L great toe: normal and R great toe: abnormal Results Labs 06/22/24 07:18 06/22/24 07:18 Labs: Abnormal lab results 06/21/24 06/21/24 06/22/24 Range/Units 17:33 20:15 02:05 APTT 28.2 L 43.9 L 200.0 H* (50-75) Seconds Glucose (74-100) mg/dl AST (17-59) U/L ALT (12-78) U/L LDL Cholesterol Direct (100-129) mg/dL HDL Cholesterol (40-60) mg/dl Cholesterol/HDL Ratio (1-3.5) 06/22/24 06/22/24 06/22/24 Range/Units 04:40 07:18 12:20 APTT 192.7 H* 104.4 H* 44.4 L (50-75) Seconds Glucose 103 H (74-100) mg/dl AST 63 H (17-59) U/L ALT 84 H (12-78) U/L LDL Cholesterol Direct 99.60 L (100-129) mg/dL HDL Cholesterol 36 L (40-60) mg/dl Cholesterol/HDL Ratio 4.3 H (1-3.5) H & H 06/22/24 Range/Units 07:18 Hgb 14.7 (14.1-18.0) g/dL Hct 42.3 (42.0-52.0) % All other labs normal. Assessment and Plan *Assessment and plan (1) Edema of right foot: Status: Acute Category: Medical Code(s): R60.0 - Localized edema (2) Onychodystrophy: Status: Acute Category: Medical Code(s): L60.3 - Nail dystrophy (3) Onychomycosis: Status: Acute Category: Medical Code(s): B35.1 - Tinea unguium (4) Avulsion of nail plate: Status: Acute Category: Medical (5) Painful legs and moving toes of right foot: Status: Acute Category: Medical Code(s): M79.604 - Pain in right leg; M79.674 - Pain in right toe(s) (6) Keratosis: Status: Acute Category: Medical Code(s): L57.0 - Actinic keratosis (7) Decreased pedal pulses: Status: Acute Category: Medical Code(s): R09.89 - Other specified symptoms and signs involving the circulatory and respiratory systems (8) Change of skin color: Status: Acute Category: Medical Code(s): R23.8 - Other skin changes Plan 06/22/24: Decreased pedal pulses R09.89, change of skin color to feet: -Patient had palpable pedal pulses the left being greater than the right, patient was admitted for ischemic changes to bilateral feet. -On examination today feet were not discolored, cool extremities but not cold, mild erythema to toes but could be related to nail avulsion -Patient noted prior to admission when seen by primary care his toes were blue and the dorsum of his foot was bright red and swollen -Discussed with the patient the possibility of vascular disease. I explained the difference between macro and micro vascular disease. I explained that macrovascular disease usually involves stenosis or blockage of arteries and requires stenting to open up the vessel to improve circulation. -I explained that microvascular disease is much harder to treat because you cannot stent this and it often involves the feet. We discussed how problems with arterial circulation can cause coldness and discoloration to the toes, pain to the digits, delayed healing of wounds, arterial wounds, and gangrene. -We discussed how problems with venous circulation can cause fluid retention, swelling, pain and delayed healing of venous wounds. -Patient had ABIs completed review them at bedside with patient -Right ankle-brachial index of 1.24, left 1.17 with low amplitudes to left ankle left calf -Patient has been consulted by cardiology, with possible runoff tomorrow. Bilateral foot x-rays 06/22/2024; left foot 3 view findings FINDINGS: B ones/joints: Normal. Soft tissues: Normal. IMPRESSION: No acute findings. Right foot 3 view findings:FINDINGS: Bones/joints: Normal. Soft tissues: Normal. IMPRESSION: No acute findings. Nail avulsion of right 2 through fourth toes: Nails came off by their self a couple days ago: -Nails, toes feet are tender to touch tonight -There is some dried blood and mild erythema noted to the tips of the nailbeds where the nails fell off no acute signs of infection noted -Discussed once discharged he may soak in some Epsom salt and apply triple antibiotic ointment, or Neosporin and cover with Band-Aid for the next couple days that may help reduce pain and prevent infection. -No dressing applied to the toes tonight due to pain and did not want to hinder blood flow with a compressive dressing. -Podiatry to follow patient in the morning -Patient may be free to have a cardiac diet from podiatry standpoint tonight -And I believe from cardiology standpoint he is can be n.p.o. after midnight -All orders per Dr. Foley
--- NOTE | 2024-06-22 17:53 | EXP.PN ---
Subjective *Date: 06/22/24 *Time: 17:53 Interval history: Patient is doing well today. Denies chest pain, shortness of breath. Exam Data for Last 24 hours Vital signs and Labs for Last 24 Hours: Temp Pulse Resp BP Pulse Ox O2 Del Method 98.5 F 100 H 16 145/89 H 98 Room Air 06/22/24 15:48 06/22/24 15:48 06/22/24 15:48 06/22/24 15:48 06/22/24 15:48 06/22/24 17:00 Laboratory Results - last 24 hr 06/21/24 17:33: APTT 28.2 L 06/21/24 20:15: APTT 43.9 L 06/22/24 02:05: APTT 200.0 H* 06/22/24 04:40: APTT 192.7 H* 06/22/24 07:18: WBC 6.7, RBC 4.82, Hgb 14.7, Hct 42.3, MCV 87.7, MCH 30.4, MCHC 34.6, RDW 14.4, Plt Count 259, MPV 7.5, Neut % (Auto) 53.0, Lymph % (Auto) 34.0, [place] % (Auto) 8.6, Eos % (Auto) 3.5, Baso % (Auto) 0.9, Neut # (Auto) 3.6, Lymph # (Auto) 2.3, [place] # (Auto) 0.6, Eos # (Auto) 0.2, Baso # (Auto) 0.1, APTT 104.4 H*, Sodium 140, Potassium 3.7, Chloride 105, Carbon Dioxide 28, Anion Gap 10.7, BUN 11, Creatinine 0.90, Estimated Creat Clear 190, Estimated GFR 95, Est GFR ( Amer) 116, Glucose 103 H, Hemoglobin A1c 5.5, Calcium 8.9, Magnesium 2.2, Total Bilirubin 0.9, AST 63 H, ALT 84 H, Alkaline Phosphatase 77, Total Protein 7.0, Albumin 4.5, Globulin 2.5, Albumin/Globulin Ratio 1.8, Triglycerides 118, Cholesterol 155, LDL Cholesterol Direct 99.60 L, VLDL Cholesterol 24, HDL Cholesterol 36 L, Cholesterol/HDL Ratio 4.3 H, TSH 2.36, Free T4 1.26 06/22/24 10:40: APTT 52.1 06/22/24 12:20: APTT 44.4 L Temp Pulse Resp BP Pulse Ox O2 Del Method 97.9 F 80 16 133/84 99 Room Air 06/22/24 11:34 06/22/24 11:34 06/22/24 11:34 06/22/24 11:34 06/22/24 11:34 06/22/24 14:41 Laboratory Results - last 24 hr 06/21/24 17:33: APTT 28.2 L 06/21/24 20:15: APTT 43.9 L 06/22/24 02:05: APTT 200.0 H* 06/22/24 04:40: APTT 192.7 H* 06/22/24 07:18: WBC 6.7, RBC 4.82, Hgb 14.7, Hct 42.3, MCV 87.7, MCH 30.4, MCHC 34.6, RDW 14.4, Plt Count 259, MPV 7.5, Neut % (Auto) 53.0, Lymph % (Auto) 34.0, [place] % (Auto) 8.6, Eos % (Auto) 3.5, Baso % (Auto) 0.9, Neut # (Auto) 3.6, Lymph # (Auto) 2.3, [place] # (Auto) 0.6, Eos # (Auto) 0.2, Baso # (Auto) 0.1, APTT 104.4 H*, Sodium 140, Potassium 3.7, Chloride 105, Carbon Dioxide 28, Anion Gap 10.7, BUN 11, Creatinine 0.90, Estimated Creat Clear 190, Estimated GFR 95, Est GFR ( Amer) 116, Glucose 103 H, Hemoglobin A1c 5.5, Calcium 8.9, Magnesium 2.2, Total Bilirubin 0.9, AST 63 H, ALT 84 H, Alkaline Phosphatase 77, Total Protein 7.0, Albumin 4.5, Globulin 2.5, Albumin/Globulin Ratio 1.8, Triglycerides 118, Cholesterol 155, LDL Cholesterol Direct 99.60 L, VLDL Cholesterol 24, HDL Cholesterol 36 L, Cholesterol/HDL Ratio 4.3 H, TSH 2.36, Free T4 1.26 06/22/24 10:40: APTT 52.1 06/22/24 12:20: APTT 44.4 L I & O for Last 24 hours: Intake & Output 06/19/24 06/20/24 06/21/24 06/22/24 23:59 23:59 23:59 23:59 Intake Total 480 / 480 679 / 679 Output Total 0 / 0 0 / 0 Balance 480 / 480 679 / 679 Weight 118.444 kg 118.44 kg Intake & Output 06/19/24 06/20/24 06/21/24 06/22/24 23:59 23:59 23:59 23:59 Intake Total 480 / 480 Output Total 0 / 0 0 / 0 Balance 480 / 480 0 / 0 Weight 261 lb 2 oz 261 lb 1.848 oz Constitutional Constitutional: no acute distress and average body habitus *Routine HEENT Exam Head: Present normocephalic and atraumatic ENT: Present mucous membranes moist *Routine Neck Exam Neck: Present supple, full ROM and normal carotid upstroke; Absent JVD, carotid bruit or lymphadenopathy *Routine Respiratory Exam Respiratory: Present CTA bilaterally, normal respiratory effort, able to speak in complete sentences and symmetric chest movement *Routine Cardiovascular Exam Cardiovascular: Present RRR, Normal S1 and Normal S2; Absent murmur or gallop *Routine Abdominal Exam Abdominal: Present soft and normoactive bowel sounds; Absent tenderness, distended or organomegaly *Routine Extremities Exam Extremities: Present edema (Edema to the right foot), full ROM, pulses intact (Bilateral DP pulses palpated) and normal capillary refill; Absent cyanosis or clubbing *Routine Skin Exam Skin: Present intact, erythema (Erythema noted to the tips of all of his toes on his right foot) and warm *Routine Neurological Exam Neurological: Present alert, oriented X3 and CN II-XII intact; Absent sensory deficit or motor deficit Routine Psychiatric Exam Psychiatric: Present normal affect Assessment and Plan *Assessment and plan (1) Chronic HFrEF (heart failure with reduced ejection fraction): Status: Acute Category: Medical Code(s): I50.22 - Chronic systolic (congestive) heart failure (2) Edema of right foot: Status: Acute Category: Medical Code(s): R60.0 - Localized edema (3) Chronic low back pain: Status: Acute Qualifiers: Back pain laterality: bilateral Sciatica presence: without sciatica Qualified Code(s): M54.50 - Low back pain, unspecified; G89.29 - Other chronic pain Category: Medical Code(s): M54.50 - Low back pain, unspecified; G89.29 - Other chronic pain Plan Bill Tesfaye is a 38-year-old male with a medical history significant for 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 Patient states he has been having right foot paresthesias for the few days, and that his toes had fallen off in the last few days. Denies any recent trauma, fever/chills. Yesterday, he has noticed his right foot became slightly blue discoloration especially in the toes. His PCP contacted Dr. Perez who agreed for peripheral cath. I discussed this case with both Dr. Perez and the PCP and decided to accept patient for transfer. #Suspected PAD ? On arrival, patient did not have cyanosis/mottling or absent pulses that he did at his PCPs office, especially compared to pictures sent by his PCP. ? However, patient continues to endorse paresthesias especially with movement of right foot. ? Plan was to do peripheral catheterization today, but patient unfortunately was not placed on the schedule for today. ? Cardiology consulted, joint joint decision was made to order venous and arterial Dopplers, abdominal CTA for further evaluation prior to considering peripheral catheterization. ? Aspirin, statin. 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 ? Continue home metoprolol succinate 25 mg twice daily, Farxiga 5 mg, Entresto. #Anxiety/depression ? Continue home BuSpar, duloxetine, oxcarbazepine, quetiapine. Holding home doxepin at this time. - QTc 420s. Continue monitor. #GERD ? Continue home PPI. Full code DVT prophylaxis: Lovenox 40
[2024-06-22 18:09] LABS: PTT Heparin (inpatient only) 43.9 Seconds (50-75)
[2024-06-22 20:00] VITALS: BP 129/77; PULSE 99; RESP 17; TEMP 36.9; O2SAT 97
[2024-06-22] MEDS: ATORVASTATIN 40MG TABLET 40 MG PO (20:44)
[2024-06-22] MEDS: METOPROLOL SUCCINATE XL 25MG TABLET 25 MG PO (20:45)
[2024-06-22] MEDS: QUETIAPINE 100MG TABLET 100 MG PO (20:45)
[2024-06-22] MEDS: BACLOFEN 10MG TABLET 10 MG PO (20:45)
[2024-06-22] MEDS: PANTOPRAZOLE 40MG TABLET 40 MG PO (20:46)
[2024-06-22] MEDS: PATIENT'S OWN HOME MEDICATION (Buspirone 15 mg tablet) 15 EACH PO (20:53)
[2024-06-22] MEDS: OXYBUTYNIN 5MG TAB 5 MG PO (20:53)
[2024-06-22] MEDS: SACUBITRIL VALSARTAN 1 EACH PO (20:56)
[2024-06-23] VITALS: BP 127/79; PULSE 76; RESP 16; TEMP 36.7; O2SAT 96
[2024-06-23 00:43] LABS: PTT Heparin (inpatient only) 60.5 Seconds (50-75)
--- NOTE | 2024-06-23 01:22 | PC.NURSE ---
06/22/24: 2100 Pt's Entresto dose is 49-51. Pt. does not have his meds here at the hospital. Hospital dose is 24-26. Had face to face talk with Dr. June and he said to give 2 of the 24-26 tabs tonight. hopefully family can bring in home meds tomorrow. Cary Hernández RN verified dose with me.
[2024-06-23] MEDS: HEPARIN 25,000 UNITS/D5W 500 ML 31 UNIT IV (03:16)
[2024-06-23 04:00] VITALS: BP 110/73; PULSE 66; RESP 16; TEMP 36.6; O2SAT 95; BMI 34.3
--- NOTE | 2024-06-23 06:17 | PC.NURSE ---
06/23/24, 0615: Pt. is resting quietly in bed. Pt. is alert and orientated x 4. P. has Heparin drip infusing 6 hour labs. Right foot. warm, pink, pulse palpable. Left foot pulse stronger than right. Pt. missing toenails to right great toe, 2nd, 3rd, 4th toes. Toes kept catching on blankets and sheets. for comfort vaseline gauze was wrapped around each toenail and than very loose gauze covered vaseline gauze. vital signs stable. Personal items and call contreras in reach.
[2024-06-23 06:35] LABS: Basophils # 0.1 K/mm3 (0-0.2); Basophils % 0.9 % (0.1-2.0); Eosinophils # 0.2 K/mm3 (0.0-0.4); Eosinophils % 3.3 % (0.1-12.0); Hematocrit 44.4 % (42.0-52.0); Hemoglobin 14.9 g/dL (14.1-18.0); Lymphocytes # 1.8 K/mm3 (0.7-4.5); Lymphocytes % 32.2 % (10-50); Mean Corpuscular HGB Conc 33.5 g/dL (31.8-35.4); Mean Corpuscular Hemoglobin 30.1 pg (27.0-31.2); Mean Platelet Volume 7.5 fl (7.4-10.4); Monocytes # 0.5 K/mm3 (0.1-1.0); Monocytes % 9.1 % (1.7-9.3); Neutrophils % 54.4 % (37.0-80.0); Platelet Count 227 K/mm3 (142-424); Red Blood Count 4.93 M/mm3 (4.60-6.20); Red Cell Distribution Width 14.3 % (11.5-17.5); White Blood Count 5.4 K/mm3 (4.8-10.8)
[2024-06-23 07:13] LABS: Alanine Aminotransferase 88 U/L (12-78); Albumin Level 4.4 g/dl (3.5-5.0); Alkaline Phosphatase 96 U/L (38-126); Anion Gap 13.1 mEq/L (5-15); Aspartate Amino Transferase 55 U/L (17-59); Bilirubin,Total 0.9 mg/dl (0.2-1.3); Blood Urea Nitrogen 11 mg/dl (9-20); Carbon Dioxide 24 mmol/L (22.0-30.0); Chloride 106 mmol/L (98-107); Creatine Kinase 66 U/L (55-170); Creatinine Clearance Estimated 212 mL/min (50-200); Estimated Glomerular Filt Rate 109 ml/min (>60); GFR (African American) 132 ML/MIN (>60); Globulin 2.2 g/dL (1.3-3.2); Glucose 99 mg/dl (74-100); Potassium 4.1 mmoL/L (3.5-5.1); Sodium 139 mmol/L (136-145); Total Protein,Serum 6.6 g/dl (6.3-8.2)
[2024-06-23 07:15] LABS: Erythrocyte Sedimentation Rate 10 mm/hr (0-15)
[2024-06-23 07:21] LABS: C-Reactive Protein 5.4 mg/L (0-4)
--- NOTE | 2024-06-23 07:53 | EXP.ORTH.PN ---
Subjective *Date: 06/23/24 *Time: 07:53 Interval history: Patient resting comfortably in bed this a.m. Reports tingling discomfort to the right lower extremity from the back to the toes. Palpable pulses. Discussed no gangrene clinically. X-ray showed no evidence of osteomyelitis. Explained no plans for or amputation. Reports his toenails did come off last week. There is mild cellulitis around the distal toes where the nails were. Would recommend antibiotic. Discussed upon discharge would recommend 7 days of oral antibiotic like doxycycline or Bactrim DS depending on kidney function and allergies. Ortho Exam (Inpt) Vital signs and Labs for Last 24 Hours: Temp Pulse Resp BP Pulse Ox O2 Del Method 97.8 F 66 16 110/73 95 Room Air 06/23/24 04:00 06/23/24 04:00 06/23/24 04:00 06/23/24 04:00 06/23/24 04:00 06/23/24 06:45 Laboratory Results - last 24 hr 06/22/24 07:18: APTT 104.4 H*, Hemoglobin A1c 5.5, LDL Cholesterol Direct 99.60 L, TSH 2.36 06/22/24 10:40: APTT 52.1 06/22/24 12:20: APTT 44.4 L 06/22/24 17:33: APTT 43.9 L 06/23/24 00:26: APTT 60.5 06/23/24 05:47: WBC 5.4, RBC 4.93, Hgb 14.9, Hct 44.4, MCV 90.0, MCH 30.1, MCHC 33.5, RDW 14.3, Plt Count 227, MPV 7.5, Neut % (Auto) 54.4, Lymph % (Auto) 32.2, [place] % (Auto) 9.1, Eos % (Auto) 3.3, Baso % (Auto) 0.9, Neut # (Auto) 3.0, Lymph # (Auto) 1.8, [place] # (Auto) 0.5, Eos # (Auto) 0.2, Baso # (Auto) 0.1, ESR 10, Sodium 139, Potassium 4.1, Chloride 106, Carbon Dioxide 24, Anion Gap 13.1, BUN 11, Creatinine 0.80, Estimated Creat Clear 212, Estimated GFR 109, Est GFR ( Amer) 132, Glucose 99, Calcium 9.0, Total Bilirubin 0.9, AST 55, ALT 88 H, Alkaline Phosphatase 96, Total Creatine Kinase 66, C-Reactive Protein 5.4 H, Total Protein 6.6, Albumin 4.4, Globulin 2.2, Albumin/Globulin Ratio 2.0 H I & O for Labs for Last 24 Hours: Intake & Output 06/20/24 06/21/24 06/22/24 06/23/24 11:59 11:59 11:59 11:59 Intake Total 480 / 480 949 / 949 Output Total 0 / 0 0 / 0 Balance 480 / 480 949 / 949 Weight 261 lb 1.848 oz 259 lb Head: Present normocephalic Neck: Present normal inspection Respiratory: Present normal respiratory effort and able to speak in complete sentences Cardiac: Present pedal pulses present GI: Present soft Rectal (male): Present deferred (male): Present deferred Extremities: Present tenderness (tips of toenail beds) Comment:: Right toenails 2-5 are gone. Mild edema, erythema to tips of those toes. No purulence or drainage. No ascending cellulitis. Ankle: bilateral: normal inspection Feet/Toes: right: tenderness (toe tips 2-5) and bilateral: normal inspection Assessment and Plan *Assessment and plan (1) Edema of right foot: Status: Acute Category: Medical Code(s): R60.0 - Localized edema (2) Onychodystrophy: Status: Acute Category: Medical Code(s): L60.3 - Nail dystrophy (3) Onychomycosis: Status: Acute Category: Medical Code(s): B35.1 - Tinea unguium (4) Avulsion of nail plate: Status: Acute Category: Medical (5) Painful legs and moving toes of right foot: Status: Acute Category: Medical Code(s): M79.604 - Pain in right leg; M79.674 - Pain in right toe(s) (6) Keratosis: Status: Acute Category: Medical Code(s): L57.0 - Actinic keratosis (7) Decreased pedal pulses: Status: Acute Category: Medical Code(s): R09.89 - Other specified symptoms and signs involving the circulatory and respiratory systems (8) Change of skin color: Status: Acute Category: Medical Code(s): R23.8 - Other skin changes Plan 06/22/24: Decreased pedal pulses R09.89, change of skin color to feet: -Patient had palpable pedal pulses the left being greater than the right, patient was admitted for ischemic changes to bilateral feet. -On examination today feet were not discolored, cool extremities but not cold, mild erythema to toes but could be related to nail avulsion -Patient noted prior to admission when seen by primary care his toes were blue and the dorsum of his foot was bright red and swollen -Discussed with the patient the possibility of vascular disease. I explained the difference between macro and micro vascular disease. I explained that macrovascular disease usually involves stenosis or blockage of arteries and requires stenting to open up the vessel to improve circulation. -I explained that microvascular disease is much harder to treat because you cannot stent this and it often involves the feet. We discussed how problems with arterial circulation can cause coldness and discoloration to the toes, pain to the digits, delayed healing of wounds, arterial wounds, and gangrene. -We discussed how problems with venous circulation can cause fluid retention, swelling, pain and delayed healing of venous wounds. -Patient had ABIs completed review them at bedside with patient -Right ankle-brachial index of 1.24, left 1.17 with low amplitudes to left ankle left calf -Patient has been consulted by cardiology, with possible runoff tomorrow. Nail avulsion of right 2 through fourth toes: Nails came off by their self a couple days ago: -Nails, toes feet are tender to touch tonight -There is some dried blood and mild erythema noted to the tips of the nailbeds where the nails fell off no acute signs of infection noted -Discussed once discharged he may soak in some Epsom salt and apply triple antibiotic ointment, or Neosporin and cover with Band-Aid for the next couple days that may help reduce pain and prevent infection. -No dressing applied to the toes tonight due to pain and did not want to hinder blood flow with a compressive dressing. -Podiatry to follow patient in the morning -Patient may be free to have a cardiac diet from podiatry standpoint tonight -And I believe from cardiology standpoint he is can be n.p.o. after midnight -All orders per Dr. Foley Bilateral foot x-rays 06/22/2024; left foot 3 view findings FINDINGS: Bones/joints: Normal. Soft tissues: Normal. IMPRESSION: No acute findings. Right foot 3 view findings: FINDINGS: Bones/joints: Normal. Soft tissues: Normal. IMPRESSION: No acute findings. 06/23/24: -pt seen and evaluated -from my stand point he has toenail avulsions with mild erythema -no concerns for gangrene or OM -no plans for Podiatry intervention -rec dose of IV abx while admitted for cellulitis -upon d/c rec oral abx for toe cellulitis: Doxy or Bactrim DS x7d -avoid tight shoes rubbing toes, wear wide shoe/slide -discussed pt can f/u with Podiatry in 2-3 wks for outpt re-evaluation -Podiatry will sign off, please call/reconsult with any new changes or concerns
[2024-06-23 08:00] VITALS: BP 126/75; PULSE 70; RESP 18; TEMP 36.6; O2SAT 100
[2024-06-23] MEDS: CEFTRIAXONE 1 GM 1 GM in 0.9 % SODIUM CHLORIDE 50 ML IV (08:28)
[2024-06-23] MEDS: BACLOFEN 10MG TABLET 10 MG PO ×2 (08:29→14:24)
[2024-06-23] MEDS: ASPIRIN EC 81MG TABLET 81 MG PO (08:29)
[2024-06-23] MEDS: BUSPIRONE HCL 10 MG TABLET 15 MG PO ×2 (08:30→14:23)
[2024-06-23] MEDS: PANTOPRAZOLE 40MG TABLET 40 MG PO (08:31)
[2024-06-23] MEDS: SACUBITRIL/VALSARTAN 24-26MG TABLET 2 EACH PO (08:32)
[2024-06-23] MEDS: METOPROLOL SUCCINATE XL 25MG TABLET 25 MG PO (08:32)
[2024-06-23] MEDS: OXYBUTYNIN 5MG TAB 5 MG PO (08:32)
[2024-06-23] MEDS: DAPAGLIFLOZIN PROPANEDIOL 10 MG TABLET 5 MG PO (08:33)
[2024-06-23] MEDS: DULOXETINE 30MG CAPSULE.DR 90 MG PO (08:33)
--- NOTE | 2024-06-23 10:47 | XR_ITS ---
PROCEDURE INFORMATION: Exam: XR Chest Exam date and time: 06/23/2024 10:55 AM Age: 38 years old Clinical indication: Shortness of breath; Additional info: SOB TECHNIQUE: Imaging protocol: Radiologic exam of the chest. Views: 1 view. COMPARISON: CT ANGIO ABDOMEN/FEMORAL 06/22/2024 4:17 PM FINDINGS: Lungs: Mild patchy opacities in both lung bases likely represent atelectasis or infection. Pleural spaces: Unremarkable. No pleural effusion. No pneumothorax. Heart/Mediastinum: Unremarkable. No cardiomegaly. Bones/joints: Unremarkable. IMPRESSION: Mild patchy opacities in both lung bases likely represent atelectasis or infection.
[2024-06-23] MEDS: RIVAROXABAN 10MG TABLET 20 MG PO (11:22)
--- NOTE | 2024-06-23 12:40 | EXP.CARD.PN ---
Subjective Subjective Date: 06/23/24 Time: 12:00 Principal diagnosis: transient embolic event to RLE Interval history: This is a 38-year-old white gentleman who was admitted to the hospital with concerns of an ischemic right foot. The patient does have palpable pulses bilaterally the left slightly stronger than the right. His right foot is warm to the touch as is his left foot. He states he has some numbness in his right foot from his back down to his toes on the right when he is up ambulating. At rest he states he does not have any pain or numbness and tingling in the foot. There is still some red cellulitis noted to the tips of his toes on his right foot where he lost his toenails he denies any chest pain or pressure. He denies any shortness of breath or edema today. He does report having shortness of breath intermittently at times. He does report having palpitations intermittently as well but nothing on a consistent basis. He states he has not felt the palpitations for a while. He reports having chills intermittently where he will be really hot and then he will all of a sudden be very cold and having chills. He denies any fevers, nausea, vomiting, diarrhea, PND or orthopnea. Exam Data for Last 24 hours Vital signs and Labs for Last 24 Hours: Temp Pulse Resp BP Pulse Ox O2 Del Method 97.8 F 70 18 126/75 100 Room Air 06/23/24 08:00 06/23/24 08:00 06/23/24 08:00 06/23/24 08:00 06/23/24 08:00 06/23/24 10:58 Laboratory Results - last 24 hr 06/22/24 12:20: APTT 44.4 L 06/22/24 17:33: APTT 43.9 L 06/23/24 00:26: APTT 60.5 06/23/24 05:47: WBC 5.4, RBC 4.93, Hgb 14.9, Hct 44.4, MCV 90.0, MCH 30.1, MCHC 33.5, RDW 14.3, Plt Count 227, MPV 7.5, Neut % (Auto) 54.4, Lymph % (Auto) 32.2, [place] % (Auto) 9.1, Eos % (Auto) 3.3, Baso % (Auto) 0.9, Neut # (Auto) 3.0, Lymph # (Auto) 1.8, [place] # (Auto) 0.5, Eos # (Auto) 0.2, Baso # (Auto) 0.1, ESR 10, Sodium 139, Potassium 4.1, Chloride 106, Carbon Dioxide 24, Anion Gap 13.1, BUN 11, Creatinine 0.80, Estimated Creat Clear 212, Estimated GFR 109, Est GFR ( Amer) 132, Glucose 99, Calcium 9.0, Total Bilirubin 0.9, AST 55, ALT 88 H, Alkaline Phosphatase 96, Total Creatine Kinase 66, C-Reactive Protein 5.4 H, Total Protein 6.6, Albumin 4.4, Globulin 2.2, Albumin/Globulin Ratio 2.0 H I & O for Last 24 hours: Intake & Output 06/20/24 06/21/24 06/22/24 06/23/24 23:59 23:59 23:59 23:59 Intake Total 480 / 480 949 / 949 587 / 587 Output Total 0 / 0 0 / 0 Balance 480 / 480 949 / 949 587 / 587 Weight 261 lb 2 oz 261 lb 1.848 oz 259 lb Constitutional Constitutional: no acute distress and average body habitus *Routine HEENT Exam Head: Present normocephalic and atraumatic ENT: Present mucous membranes moist *Routine Neck Exam Neck: Present supple, full ROM and normal carotid upstroke; Absent JVD, carotid bruit or lymphadenopathy *Routine Respiratory Exam Respiratory: Present CTA bilaterally, normal respiratory effort, able to speak in complete sentences and symmetric chest movement *Routine Cardiovascular Exam Cardiovascular: Present RRR, Normal S1 and Normal S2; Absent murmur or gallop *Routine Abdominal Exam Abdominal: Present soft and normoactive bowel sounds; Absent tenderness, distended or organomegaly *Routine Extremities Exam Extremities: Present edema (Edema to the right foot), full ROM, pulses intact (Bilateral DP pulses palpated) and normal capillary refill; Absent cyanosis or clubbing *Routine Skin Exam Skin: Present intact, erythema (Erythema noted to the tips of all of his toes on his right foot) and warm *Routine Neurological Exam Neurological: Present alert, oriented X3 and CN II-XII intact; Absent sensory deficit or motor deficit Routine Psychiatric Exam Psychiatric: Present normal affect Progress Note: A&P Assessment and plan (1) Edema of right foot: Status: Acute (2) Onychodystrophy: Status: Acute (3) Onychomycosis: Status: Acute (4) Avulsion of nail plate: Status: Acute (5) Keratosis: Status: Acute (6) Change of skin color: Status: Acute (7) Chronic HFrEF (heart failure with reduced ejection fraction): Status: Acute (8) Right foot infection: Status: Acute (9) Cardiomyopathy: Status: Acute Assessment and Plan Assessment and Plan for All Diagnoses:: Plan: 1. Patient was admitted to the hospital due to concerns for an ischemic right foot. The patient does have palpable pulses bilaterally. The patient had a CTA of the abdomen/femoral with runoff in radiology. This shows no occlusion or stenosis of the abdomen and bilateral lower extremities down to the infrapopliteal arteries. 2. The venous Dopplers are still pending at this time. 3. CPK, ESR were normal. CRP only slightly elevated. 4. Echocardiogram shows an ejection fraction of 45% which is stable. There is no left ventricular thrombus noted. Patient had recent cardiac MRI at an outlying facility which estimated ejection fraction at 53%. 5. Continue Farxiga, metoprolol, Entresto for HFrEF. 6. SYLVIA was 1.24 on the right and 1.17 on the left. This was reviewed by Dr. Vazquez and there is no significant ischemia noted. 7. No plans for invasive runoff at this time as the CTA of the abdomen/femoral with runoff shows no occlusion or stenosis and he has palpable pulses bilaterally. His foot is warm to the touch and there is no cyanosis noted at this time. 8. The patient likely had a transient embolic event involving the right foot. We do recommend anticoagulation with Xarelto 20 mg daily for at least 3 months. Xarelto has been started. 9. We can stop the heparin drip. 11. Will obtain a chest x-ray to make sure no embolic sources are noted. 12. We do recommend a 30-day event monitor at the time of discharge to rule out paroxysmal atrial fibrillation as the source of the embolic event. 13. His blood pressure is well-controlled. 14. His LDL goal is less than 100. His LDL is 99. 15. Start amlodipine 2.5 mg p.o. daily in case this is vasospasm versus Buerger's disease. 16. Once his Dopplers have resulted and as long as they are normal, the patient can be discharged home today from a cardiac standpoint on Xarelto 20 mg daily for at least 3 months. He will need to follow-up in cardiology clinic on an outpatient basis next week with Dr. Vazquez. Thank you for the opportunity to help participate in the care of this patient. All recommendations and orders are per Dr. Veras.
--- NOTE | 2024-06-23 13:55 | EXP.DC.SUM ---
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 Patient states he has been having right foot paresthesias for the few days, and that his toes had fallen off in the last few days. Denies any recent trauma, fever/chills. Yesterday, he has noticed his right foot became slightly blue discoloration especially in the toes. His PCP contacted Dr. Perez who agreed for peripheral cath. I discussed this case with both Dr. Perez and the PCP and decided to accept patient for transfer. 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 Patient states he has been having right foot paresthesias for the few days, and that his toes had fallen off in the last few days. Denies any recent trauma, fever/chills. Yesterday, he has noticed his right foot became slightly blue discoloration especially in the toes. His PCP contacted Dr. Perez who agreed for peripheral cath. I discussed this case with both Dr. Perez and the PCP and decided to accept patient for transfer. #Suspected right leg transient emboli vs vasospam vs Bueger's disease ? On arrival, patient did not have cyanosis/mottling or absent pulses that he did at his PCPs office, especially compared to pictures sent by his PCP. - Bilateral legs/feet were warm to touch, pedal pulses palpable bilaterally. - There is avulsion of toenails 2-5 in right foot, though patient denies trauma and said he woke up with them having fallen off a few days ago. There is very mild erythema surrounding avulsed nailbeds without drainage. Patient also comlained of chills, CXR and UA normal. Podiatry consulted, recommended doxyclyline for possible cellulitis of toes. - CTA abdomen/femoral, arterial duplex right leg did not reveal PAD occlusion. Venous doppler was also normal. - Cardiology consulted, initial plan was to do peripheral cath but patient had normal arterial imaging studies. Recommended Xarelto 20mg for 3 months, and amlodipine 2.5mg for possible vasospasm. - Will follow-up with cardiology within 2 week. 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 Currently compensated. ? Continue home metoprolol succinate 25 mg twice daily, Farxiga 5 mg, Entresto. #Anxiety/depression ? Continue home BuSpar, duloxetine, oxcarbazepine, quetiapine. Held home doxepin during admission to reduce polypharmacy. Will need to speak to PCP further about this. - QTc 420s. Continue monitor. #GERD ? Continue home PPI. Exam Data for Last 24 hours Vital signs and Labs for Last 24 Hours: Temp Pulse Resp BP Pulse Ox O2 Del Method 97.8 F 70 18 126/75 100 Room Air 06/23/24 08:00 06/23/24 08:00 06/23/24 08:00 06/23/24 08:00 06/23/24 08:00 06/23/24 10:58 Laboratory Results - last 24 hr 06/22/24 17:33: APTT 43.9 L 06/23/24 00:26: APTT 60.5 06/23/24 05:47: WBC 5.4, RBC 4.93, Hgb 14.9, Hct 44.4, MCV 90.0, MCH 30.1, MCHC 33.5, RDW 14.3, Plt Count 227, MPV 7.5, Neut % (Auto) 54.4, Lymph % (Auto) 32.2, [place] % (Auto) 9.1, Eos % (Auto) 3.3, Baso % (Auto) 0.9, Neut # (Auto) 3.0, Lymph # (Auto) 1.8, [place] # (Auto) 0.5, Eos # (Auto) 0.2, Baso # (Auto) 0.1, ESR 10, Sodium 139, Potassium 4.1, Chloride 106, Carbon Dioxide 24, Anion Gap 13.1, BUN 11, Creatinine 0.80, Estimated Creat Clear 212, Estimated GFR 109, Est GFR ( Amer) 132, Glucose 99, Calcium 9.0, Total Bilirubin 0.9, AST 55, ALT 88 H, Alkaline Phosphatase 96, Total Creatine Kinase 66, C-Reactive Protein 5.4 H, Total Protein 6.6, Albumin 4.4, Globulin 2.2, Albumin/Globulin Ratio 2.0 H I & O for Last 24 hours: Intake & Output 06/20/24 06/21/24 06/22/24 06/23/24 23:59 23:59 23:59 23:59 Intake Total 480 / 480 949 / 949 587 / 587 Output Total 0 / 0 0 / 0 Balance 480 / 480 949 / 949 587 / 587 Weight 118.444 kg 118.44 kg 117.48 kg Constitutional Constitutional: no acute distress and average body habitus *Routine HEENT Exam Head: Present normocephalic and atraumatic ENT: Present mucous membranes moist *Routine Neck Exam Neck: Present supple, full ROM and normal carotid upstroke; Absent JVD, carotid bruit or lymphadenopathy *Routine Respiratory Exam Respiratory: Present CTA bilaterally, normal respiratory effort, able to speak in complete sentences and symmetric chest movement *Routine Cardiovascular Exam Cardiovascular: Present RRR, Normal S1 and Normal S2; Absent murmur or gallop *Routine Abdominal Exam Abdominal: Present soft and normoactive bowel sounds; Absent tenderness, distended or organomegaly *Routine Extremities Exam Extremities: Present edema (Edema to the right foot), full ROM, pulses intact (Bilateral DP pulses palpated) and normal capillary refill; Absent cyanosis or clubbing *Routine Skin Exam Skin: Present intact, erythema (Erythema noted to the tips of all of his toes on his right foot) and warm *Routine Neurological Exam Neurological: Present alert, oriented X3 and CN II-XII intact; Absent sensory deficit or motor deficit Routine Psychiatric Exam Psychiatric: Present normal affect Results Data Completed and Pending Labs on day of discharge: Labs from last 24 hours 06/23/24 06/23/24 06/22/24 05:47 00:26 17:33 WBC 5.4 RBC 4.93 Hgb 14.9 Hct 44.4 MCV 90.0 MCH 30.1 MCHC 33.5 RDW 14.3 Plt Count 227 MPV 7.5 Neut % (Auto) 54.4 Lymph % (Auto) 32.2 [place] % (Auto) 9.1 Eos % (Auto) 3.3 Baso % (Auto) 0.9 Neut # (Auto) 3.0 Lymph # (Auto) 1.8 [place] # (Auto) 0.5 Eos # (Auto) 0.2 Baso # (Auto) 0.1 ESR 10 APTT 60.5 43.9 L Sodium 139 Potassium 4.1 Chloride 106 Carbon Dioxide 24 Anion Gap 13.1 BUN 11 Creatinine 0.80 Estimated Creat Clear 212 Estimated GFR 109 Est GFR ( Amer) 132 Glucose 99 Calcium 9.0 Total Bilirubin 0.9 AST 55 ALT 88 H Alkaline Phosphatase 96 Total Creatine Kinase 66 C-Reactive Protein 5.4 H Total Protein 6.6 Albumin 4.4 Globulin 2.2 Albumin/Globulin Ratio 2.0 H DS: Diagnosis Discharge Diagnosis (1) Edema of right foot: Status: Acute Code(s): R60.0 - Localized edema (2) Onychodystrophy: Status: Acute Code(s): L60.3 - Nail dystrophy (3) Onychomycosis: Status: Acute Code(s): B35.1 - Tinea unguium (4) Avulsion of nail plate: Status: Acute (5) Keratosis: Status: Acute Code(s): L57.0 - Actinic keratosis (6) Change of skin color: Status: Acute Code(s): R23.8 - Other skin changes (7) Chronic HFrEF (heart failure with reduced ejection fraction): Status: Acute Code(s): I50.22 - Chronic systolic (congestive) heart failure (8) Right foot infection: Status: Acute Code(s): L08.9 - Local infection of the skin and subcutaneous tissue, unspecified (9) Cardiomyopathy: Status: Acute Code(s): I42.9 - Cardiomyopathy, unspecified Qualifiers: Cardiomyopathy type: dilated Qualified Code(s): I42.0 - Dilated cardiomyopathy Meds Home Medications and Allergies Home Medications ?Medication ?Instructions ?Recorded ?Confirmed ?Type famotidine 40 mg tablet 40 mg PO DAILY 05/19/22 06/21/24 History multivitamin 1 tab PO DAILY SUPPLIMENT 08/13/22 06/21/24 History pantoprazole 40 mg tablet,delayed 40 mg PO BID 10/02/22 06/21/24 History release quetiapine 100 mg tablet 100 mg PO HS 05/12/23 06/21/24 History oxcarbazepine 150 mg tablet 150 mg PO BID 07/21/23 06/21/24 History (Trileptal) metoprolol succinate 25 mg 25 mg PO BID #180 tabs 09/03/23 06/21/24 Rx tablet,extended release 24 hr (Toprol XL) dapagliflozin propanediol 5 mg 5 mg PO DAILY #90 tabs 10/15/23 06/21/24 Rx tablet (Farxiga) sacubitril 49 mg-valsartan 51 mg 1 tab PO BID #60 tabs 12/08/23 06/21/24 Rx tablet (Entresto) buspirone 15 mg tablet 15 mg PO TID 02/29/24 06/21/24 History doxepin 25 mg capsule 25 mg PO HS 02/29/24 06/21/24 History duloxetine 30 mg capsule,delayed 90 mg PO DAILY 02/29/24 06/21/24 History release azelastine 137 mcg (0.1 %) nasal 2 spray intranasal BID #30 mL 04/07/24 06/21/24 Rx spray oxybutynin chloride 10 mg 10 mg PO DAILY #90 tabs 04/18/24 06/21/24 Rx tablet,extended release 24 hr tamsulosin 0.4 mg capsule (Flomax) 0.4 mg PO DAILY #30 caps 04/18/24 06/21/24 Rx baclofen 10 mg tablet 10 mg PO TID #90 tabs 06/08/24 06/21/24 Rx celecoxib 100 mg capsule 100 mg PO BID 06/22/24 06/22/24 History clobetasol 0.05 % shampoo 1 applic topical DAILYP PRN Skin 06/22/24 06/22/24 History Irritation clobetasol 0.05 % topical ointment 1 applic topical TIDP PRN Itching 06/22/24 06/22/24 History ketoconazole 2 % topical cream 1 applic topical BIDP PRN Skin 06/22/24 06/22/24 History Irritation amlodipine 2.5 mg tablet 2.5 mg PO DAILY 30 days #30 tabs 06/23/24 Rx doxycycline monohydrate 100 mg 100 mg PO BID 7 days #14 caps 06/23/24 Rx capsule rivaroxaban 10 mg tablet (Xarelto) 20 mg (2 x 10 mg) PO QPMWITHMEAL 06/23/24 Rx 30 days #60 tabs New Prescriptions to Start Prescriptions: amlWalter Goyal doxycycline monohydrate Walter Vásquez rivaroxaban [Xarelto] Walter Vásquez Allergies Allergy/AdvReac Type Severity Reaction Status Date / Time Penicillins (PENICILLINS) Allergy Intermediate I-RASH Verified 05/20/24 06:39 tizanidine Allergy Difficulty Verified 05/20/24 06:39 Breathing Discharge Plan Disposition Patient Disposition: Home, Self-Care Follow up Plan Follow up with: Ly Morales APRN [Primary Care Provider] - 07/05/24 10:20 am Jose Mccoy PA [Physician Sales Order Administrator] - 07/05/24 2:30 pm Sudha Foley DPM [Staff Physician] - 07/12/24 9:00 am (2-3 WEEKS ) Prescriptions/Medication Reconciliation: New amlodipine 2.5 mg Tablet 2.5 mg PO DAILY 30 Days Qty: 30 0RF Xarelto 10 mg Tablet 20 mg PO QPMWITHMEAL 30 Days Qty: 60 0RF doxycycline monohydrate 100 mg capsule 100 mg PO BID 7 Days Qty: 14 0RF Continued famotidine 40 mg tablet 40 mg PO DAILY Patient Comments: TAKE ONE TABLET BY MOUTH EVERY DAY pantoprazole 40 mg tablet,delayed release (DR/EC) 40 mg PO BID oxcarbazepine [Trileptal] 150 mg tablet 150 mg PO BID metoprolol succinate [Toprol XL] 25 mg tablet extended release 24 hr 25 mg PO BID Qty: 180 3RF buspirone 15 mg tablet 15 mg PO TID Patient Comments: TAKE ONE TABLET BY MOUTH THREE TIMES DAILY DIRECTED duloxetine 30 mg capsule,delayed release(DR/EC) 90 mg PO DAILY Patient Comments: TAKE THREE CAPSULES BY MOUTH EVERY DAY IN THE MORNING DIRECTED doxepin 25 mg capsule 25 mg PO HS Patient Comments: TAKE 1 TO 2 CAPSULE(S) BY MOUTH EVERY DAY AT BEDTIME DIRECTED azelastine 137 mcg (0.1 %) spray,non-aerosol 2 spray intranasal BID Qty: 30 2RF Rx Instructions: administer into each nostril multivitamin Tablet 1 tab PO DAILY quetiapine 100 mg tablet 100 mg PO HS dapagliflozin propanediol [Farxiga] 5 mg tablet 5 mg PO DAILY Qty: 90 3RF oxybutynin chloride 10 mg tablet extended release 24hr 10 mg PO DAILY Qty: 90 3RF tamsulosin [Flomax] 0.4 mg capsule 0.4 mg PO DAILY Qty: 30 3RF Entresto 49-51 mg tablet 1 tab PO BID Qty: 60 11RF baclofen 10 mg tablet 10 mg PO TID Qty: 90 2RF celecoxib 100 mg capsule 100 mg PO BID Patient Comments: TAKE ONE CAPSULE BY MOUTH TWICE DAILY clobetasol 0.05 % ointment 1 applic TOPICAL TIDP PRN (Reason: Itching) Patient Comments: apply a thin layer TO THE affected AREA topically 2-3 times PER DAY as needed FOR ITCHING Rx Instructions: APPLY A THIN LAYER TO THE AFFECTED AREA TOPICALLY TWO TO THREE TIMES PER DAY NEEDED FOR ITCHING ketoconazole 2 % cream 1 applic TOPICAL BIDP PRN (Reason: Skin Irritation) Patient Comments: APPLY TOPICALLY TO THE AFFECTED AREA(S) TWICE DAILY DIRECTED clobetasol 0.05 % shampoo 1 applic TOPICAL DAILYP PRN (Reason: Skin Irritation) Patient Comments: apply a thin layer topically ONCE daily TO DRY SCALP. LEAVE in place FOR 15 minutes THEN lather AND RINSE as directed Problem Reconciliation Problems Reviewed?: Yes Patient Discharge Instructions Additional Instructions: The vascular studies in your leg were normal, you do not have a blood clot in your leg. You might have had a temporary blood clot that has cleared, and for this reason we will start you on Xarelto for 3 months. He will follow-up with cardiology for further evaluation management. Patient Instructions: DI for Cellulitis -- Adult, DI for Peripheral Vascular (Arterial) Disease Print Language: [place] Providers Primary Care Provider: Ly Morales Admit Provider: Walter Vásquez Attending Provider: Walter Vásquez
[2024-06-23] MEDS: AMLODIPINE 2.5MG TABLET 2.5 MG PO (14:24)
[2024-06-24 07:24] LABS: HBsAg Screen Negative (Negative); HCV Ab Non Reactive (Non Reactive); Hep A Ab, IGM Negative (Negative); Hep B Core Ab, IgM Negative (Negative)
--- NOTE | 2024-06-24 15:02 | CARE MANAGER ---
Called and spoke with patient regarding recent discharge. Patient stated that he is doing well, has started all new medication and was aware of f/u appts. He wanted me to let the med-surg nursing staff know that he is thankful for the impeccable care he received while here.
== END 2024-06-23 15:41 | disposition home or self-care (01) ==
PROVIDERS: Nurse Practitioner Family; Admitting Provider Student in an Organized Health Care Education/Training Program; PCP Nurse Practitioner Family; Visit Provider Student in an Organized Health Care Education/Training Program
DX: I11.0 Hypertensive heart disease with heart failure (principal); I50.22 Chronic systolic (congestive) heart failure; I42.0 Dilated cardiomyopathy; Z79.899 Other long term (current) drug therapy; Z79.01 Long term (current) use of anticoagulants; M54.50 Low back pain, unspecified; G89.29 Other chronic pain; L57.0 Actinic keratosis; M79.604 Pain in right leg; M79.674 Pain in right toe(s); R60.0 Localized edema; L60.3 Nail dystrophy; B35.1 Tinea unguium; R23.8 Other skin changes; L08.89 Other specified local infections of the skin and subcutaneous tissue
CPT/HCPCS: 36415; 71045; 73630; 75635; 80053; 80061; 80074; 82550; 83036; 83735; 84439; 84443; 85025; 85651; 85730; 86140; 93270; 93272; 93306; 93923; 93970; G0378; J0696; J1644; Q9957; Q9967

== ENCOUNTER 2024-07-01 14:15 | Outpatient (POV) | payer OTHER, SELFPAY ==
[2024-07-01 14:31] VITALS: BP 131/70; PULSE 89; RESP 16; O2SAT 96; BMI 34.2
--- NOTE | 2024-07-01 14:40 | A.OFFVIS_ITS ---
[facility] Disclaimer: The information contained in this section may have been updated after the patient was seen, as this information can be updated by other users. Medical History (Updated 06/22/24 @ 18:11 by Ashlee Renteria APRN) Chronic HFrEF (heart failure with reduced ejection fraction) Right foot infection Edema of right foot History of urinary frequency Tinnitus Impacted cerumen, bilateral Hearing difficulty of both ears History of esophageal dilatation Fatty liver Advjh-4-lvdfzuzvqey deficiency Esophageal stricture LV dysfunction Cardiomyopathy Anxiety Hypertension Daytime somnolence Snoring Fatigue Systolic heart failure Abnormal result of cardiovascular function study Abnormal electrocardiogram [ECG] [EKG] Surgical History History of surgery History of arthroplasty of right hip H/O lumbar discectomy History of right knee surgery History of tonsillectomy and adenoidectomy History of appendectomy Family History Other Diabetes Family history non-contributory Social History Smoking Status: Never smoker second hand exposure: No alcohol intake: never substance use type: denies use current occupational status: other Travel in the last 8 weeks: None household members: spouse housing: house current occupation: [employer] current occupational exposures/hazards: No caffeine: Yes PM Subjective & Objective Subjective Subjective:: Patient is a pleasant 38-year-old male who presents today for 1 month follow-up. Today he rates his pain a 3 out of 10. Patient denies any new trauma. He does state that last week he ended up having to come in to the hospital and got admitted because his right foot was a blackish purple color. They ended up t hinking it was related to his heart and he is now on Entresto and got a different blood pressure medication. He does state that this is seeming like it is working. He does also mention that they did a loop recorder. He is following up with Dr. Perez's office coming up. He does state overall that he is doing well currently with his intrathecal pump medication and denies needing any additional adjustment. He is currently managed with bupivacaine 5 mg/mL with a daily dose of 3.0046 mg/day. Patient is also on baclofen 10 mg 3 times a day and Celebrex 100 mg twice a day from our office and did just have a 3-month supply of this medication sent in. Patient states as of right now his stimulator programming is working well as could be. He does state that when he is laying down it does still cause some of the worsening pain. His Jimbo has been reviewed and is appropriate. Review of Systems: General: No recent weight changes, no fever, no sleep disturbances Respiratory: No cough, no shortness of air, no recurring pulmonary infections Cardiovascular/peripheral vascular: No chest pain, no palpitations, no edema, no shortness of breath Gastrointestinal: No new onset incontinence, normal bowel movements reported Genitourinary: No new onset incontinence Musculoskeletal: Low back pain Psychiatric: [Normal mood/affect] Neurological: [Denies weakness in extremities], [denies balance issues] Pain at rest (0-10 scale): 3 Objective Objective:: Physical Exam: General: Alert and oriented x3, no acute distress, pleasant and cooperative Lungs: Respirations even and unlabored, symmetrical chest expansion Eyes: PERRL Musculoskeletal: Flexion and extension of lumbar [spine] somewhat guarded secondary to pain, [antalgic gait noted] Neurological: Speech clear, no gross sensory deficit Has patient had previous pain injection?: No Conservative treatment options previously tried: Home exercise plan Length of treatment: Longer than 12 weeks Meds Home Medications and Allergies Home Medications ?Medication ?Instructions ?Recorded ?Confirmed ?Type famotidine 40 mg tablet 40 mg PO DAILY 05/19/22 06/21/24 History multivitamin 1 tab PO DAILY SUPPLIMENT 08/13/22 06/21/24 History pantoprazole 40 mg tablet,delayed 40 mg PO BID 10/02/22 06/21/24 History release quetiapine 100 mg tablet 100 mg PO HS 05/12/23 06/21/24 History oxcarbazepine 150 mg tablet 150 mg PO BID 07/21/23 06/21/24 History (Trileptal) metoprolol succinate 25 mg 25 mg PO BID #180 tabs 09/03/23 06/21/24 Rx tablet,extended release 24 hr (Toprol XL) dapagliflozin propanediol 5 mg 5 mg PO DAILY #90 tabs 10/15/23 06/21/24 Rx tablet (Farxiga) sacubitril 49 mg-valsartan 51 mg 1 tab PO BID #60 tabs 12/08/23 06/21/24 Rx tablet (Entresto) buspirone 15 mg tablet 15 mg PO TID 02/29/24 06/21/24 History doxepin 25 mg capsule 25 mg PO HS 02/29/24 06/21/24 History duloxetine 30 mg capsule,delayed 90 mg PO DAILY 02/29/24 06/21/24 History release azelastine 137 mcg (0.1 %) nasal 2 spray intranasal BID #30 mL 04/07/24 06/21/24 Rx spray oxybutynin chloride 10 mg 10 mg PO DAILY #90 tabs 04/18/24 06/21/24 Rx tablet,extended release 24 hr tamsulosin 0.4 mg capsule (Flomax) 0.4 mg PO DAILY #30 caps 04/18/24 06/21/24 Rx baclofen 10 mg tablet 10 mg PO TID #90 tabs 06/08/24 06/21/24 Rx celecoxib 100 mg capsule 100 mg PO BID 06/22/24 06/22/24 History clobetasol 0.05 % shampoo 1 applic topical DAILYP PRN Skin 06/22/24 06/22/24 History Irritation clobetasol 0.05 % topical ointment 1 applic topical TIDP PRN Itching 06/22/24 06/22/24 History ketoconazole 2 % topical cream 1 applic topical BIDP PRN Skin 06/22/24 06/22/24 History Irritation amlodipine 2.5 mg tablet 2.5 mg PO DAILY 30 days #30 tabs 06/23/24 Rx doxycycline monohydrate 100 mg 100 mg PO BID 7 days #14 caps 06/23/24 Rx capsule rivaroxaban 10 mg tablet (Xarelto) 20 mg (2 x 10 mg) PO QPMWITHMEAL 06/23/24 Rx 30 days #60 tabs New Prescriptions to Start Prescriptions: Allergies Allergy/AdvReac Type Severity Reaction Status Date / Time Penicillins (PENICILLINS) Allergy Intermediate I-RASH Verified 05/20/24 06:39 tizanidine Allergy Difficulty Verified 05/20/24 06:39 Breathing Assessment and Plan *Assessment and plan (1) Degenerative disc disease, lumbar: Status: Acute Category: Medical Code(s): M51.36 - Other intervertebral disc degeneration, lumbar region Plan Patient is doing well currently with his intrathecal pump and spinal cord stimulator and does not need any additional adjustment. Patient will return to clinic on or before his next intrathecal refill date. Patient agrees with this plan of care. We will see the patient back in the clinic at the next intrathecal refill. Patient has been instructed to contact the clinic with any concerns before the next appointment. Dr. Eden has reviewed this note and agrees with this plan of care. This note was dictated using voice recognition software and make contain errors or omissions. -- It Is medically necessary for this patient to continue to have their intrathecal pump refilled at regular intervals. This patient had an intrathecal pain pump implanted after meeting criteria of chronic intractable pain for greater than 3 months and failing conservative treatments. Patient has committed and been compliant to the treatment plan and all planned follow up care. Since implantation of the intrathecal pain pump, the patient has had decreased pain and been more functional. Oral medications have been reduced including intake of oral opioids. Patient continues to do well with intrathecal therapy with decrease in pain symptoms and increase in functional status. Stopping intrathecal medications can lead to life threatening withdrawal, seizures, cardiac arrest, severe pain, and possible . Pumps that are not refilled at regular intervals can be damages and cause and need for replacement. We continually titrate dose and concentration to optimize pain relief and function. We are limited in concentration for certain drugs to safely deliver medications through the pump and stay within the recommendations from the Polyanalgesic Consensus Committee Guidelines. Depending on dose and concentration these pumps may need to be refilled sooner than 3 months as we titrate.
== END 2024-07-01 23:59 | disposition home or self-care (01) ==
LOC: SC.PAIN 14:15
PROVIDERS: PCP Nurse Practitioner Family; Visit Provider Nurse Practitioner Family
DX: M51.369 Other intervertebral disc degeneration, lumbar region without mention of lumbar back pain or lower extremity pain (principal); Z79.899 Other long term (current) drug therapy
CPT/HCPCS: 99212; G0463

== ENCOUNTER 2024-07-12 08:02 | Day surgery (SDC) | payer OTHER, SELFPAY ==
[2024-07-12 08:26] VITALS: BP 113/71; PULSE 101; RESP 16; TEMP 36.8; O2SAT 97; BMI 34.2
[2024-07-12 08:59] VITALS: BP 108/67; PULSE 91; RESP 18; O2SAT 97
[2024-07-12 09:03] VITALS: BP 108/67; PULSE 87; RESP 18; O2SAT 97
[2024-07-12 09:21] VITALS: BP 122/70; PULSE 85; RESP 16; O2SAT 96
--- NOTE | 2024-07-12 09:27 | EXP.PAIN.PRO ---
Procedure Date: 07/12/24 Time: 09:00 Anesthesiologist:: Haile Spicer CRNA Complications:: None Pre-procedure Diagnosis:: Degenerative disc lumbar spine multilevels. Lumbar radiculopathy. Lumbar postlaminectomy syndrome. Post-procedure Diagnosis:: Same. Indications for Procedure:: Patient is a pleasant 38-year-old male who comes our clinic today for intrathecal pain pump interrogation and refill. Patient currently being managed with bupivacaine 5 mg/mL at a rate of 3.0046 mg/day. He is doing very well with his current settings. He is not reporting side effects or complications. He is not requesting any changes. Patient is awake alert [place] x 3. No acute distress. Flexion-extension lumbar spine somewhat guarded secondary to pain. Deep tendon reflexes upper and lower extremities normal. Motor strength upper lower extremities normal. There is no gross sensory deficit. Gait is normal. Procedure Details:: Details of the procedure explained to the patient. The patient taken procedure and placed in sitting position. The area of the pump was cleansed using chlorhexidine as a cleansing solution. The pump was interrogated. The pump was accessed with ease using a 22-gauge inch and half needle. 2.5 mL of solution was withdrawn discarded appropriately. The pump was then filled with 20 cc of solution containing bupivacaine 5 mg/mL. Patient tolerated procedure without difficulty. No changes are made in intrathecal pump rate. There were no complications.. Plan and Disposition:: Patient was discharged without incident.
== END 2024-07-12 09:21 | disposition home or self-care (01) ==
LOC: SC.PAINP 08:03
PROVIDERS: PCP Nurse Practitioner Family; Visit Provider Nurse Anesthetist, Certified Registered
DX: M51.16 Intervertebral disc disorders with radiculopathy, lumbar region (principal); M96.1 Postlaminectomy syndrome, not elsewhere classified
CPT/HCPCS: 95991

== ENCOUNTER 2024-08-09 13:35 | Day surgery (SDC) | payer OTHER, SELFPAY ==
[2024-08-09 14:14] VITALS: BP 147/86; PULSE 63; RESP 16; TEMP 36.2; O2SAT 100; BMI 34.2
[2024-08-09 14:50] VITALS: BP 125/76; PULSE 85; RESP 16; O2SAT 100
--- NOTE | 2024-08-09 14:53 | EXP.PAIN.PRO ---
Procedure Date: 08/09/24 Time: 14:45 Anesthesiologist:: Haile Spicer CRNA Complications:: None Pre-procedure Diagnosis:: Degenerative disc lumbar spine multilevels were lumbar radiculopathy. Lumbar postlaminectomy syndrome Post-procedure Diagnosis:: Same. Indications for Procedure:: Patient is a very pleasant 38-year-old male who comes our clinic today for intrathecal pain pump interrogation and refill. Patient currently being managed with bupivacaine 5 mg/mL at 3.0046 mg/day. He is doing very well with his current settings. He is not reporting any side effects or complications. He is not requesting any changes. Procedure Details:: Details of the procedure explained to the patient. The patient taken procedure and placed in the sitting position. They over the palms cleansed using chlorhexidine as a cleansing solution. The pump was interrogated. The pump was accessed with ease using a 22-gauge inch and a half needle. 2.5 mL of solution was withdrawn discarded appropriate. The pump was then filled with 20 cc of solution containing bupivacaine 5 mg/mL. No change in pump rate. Patient tolerated procedure without difficulty. There are no complications. Plan and Disposition:: Patient was discharged without incident.
[2024-08-09 15:17] VITALS: BP 117/72; PULSE 95; RESP 18; O2SAT 94
[2024-08-09 15:25] VITALS: BP 117/72; PULSE 95; RESP 18; O2SAT 94
== END 2024-08-09 14:50 | disposition home or self-care (01) ==
PROVIDERS: PCP Nurse Practitioner Family; Visit Provider Nurse Anesthetist, Certified Registered
DX: M51.16 Intervertebral disc disorders with radiculopathy, lumbar region (principal); M96.1 Postlaminectomy syndrome, not elsewhere classified
CPT/HCPCS: 95991

== ENCOUNTER 2024-09-02 08:45 | Day surgery (SDC) | payer OTHER, SELFPAY ==
[2024-09-02 09:02] VITALS: BP 126/85; PULSE 77; RESP 16; TEMP 36.8; O2SAT 97; BMI 35.6
[2024-09-02 09:27] VITALS: BP 121/70; PULSE 85; RESP 18; O2SAT 96
[2024-09-02 09:29] VITALS: BP 121/70; PULSE 85; RESP 18; O2SAT 96
[2024-09-02 09:42] VITALS: BP 121/72; PULSE 73; RESP 16; O2SAT 98
--- NOTE | 2024-09-02 09:42 | EXP.PAIN.PRO ---
Procedure Date: 09/02/24 Time: 09:35 Anesthesiologist:: Helene Fournier APRN Complications:: None Pre-procedure Diagnosis:: Degenerative disc disease of lumbar spine with lumbar radiculopathy symptoms, chronic back pain Post-procedure Diagnosis:: Same Indications for Procedure:: Patient is a pleasant 38-year-old male who presents today for intrathecal refill and reprogram. Today he rates his pain a 2 out of 10. He states overall he is doing really well. Patient does have a [employer] stimulator in place and denies any need for additional adjustment on the programming. He does have a intrathecal pump of bupivacaine 5 mg/mL with a daily dose of 3.0046 mg/day. He denies any side effects from this medication and states he does not need any additional increase.Patient is also managed with baclofen 10 mg 3 times daily as needed. His Jimbo has been reviewed and is appropriate. Physical Exam: General: Alert and oriented x3, no acute distress, pleasant and cooperative Lungs: Respirations even and unlabored, symmetrical chest expansion Eyes: PERRL Musculoskeletal: Flexion and extension of lumbar [spine] somewhat guarded secondary to pain, [antalgic gait noted] Neurological: Speech clear, no gross sensory deficit Procedure Details:: Informed consent was obtained and the risk and benefits of the procedure were explained to the patient. The patient had noninvasive monitoring placed including noninvasive blood pressure cuff and pulse oximeter. Patient's pump was interrogated. The area over the pump was cleansed with chlorhexidine as a cleansing solution. In sterile fashion the pump was accessed with a 22-gauge needle. Approximately 5 mls of the pump solution was removed and discarded appropriately. The pump was then refilled with 20 mL's of bupivacaine 10 mg/mL. The needle was withdrawn and a bandage was placed over the puncture site. The infusion rate was reprogrammed and was continued at bupivacaine 3.0046 mg/day. The patient tolerated well with no complication. Plan and Disposition:: Patient tolerated the procedure well with no complications and was discharged neurologically intact. Patient was counseled that we are changing the concentration today to 10 mg/mL. He acknowledges understanding. I did send in a 3-month supply of his baclofen. Patient will return to clinic on or before his next refill. We will see the patient back in the clinic at the next intrathecal refill. Patient has been instructed to contact the clinic with any concerns before the next appointment. Dr. Eden has reviewed this note and agrees with this plan of care. This note was dictated using voice recognition software and make contain errors or omissions. -- It Is medically necessary for this patient to continue to have their intrathecal pump refilled at regular intervals. This patient had an intrathecal pain pump implanted after meeting criteria of chronic intractable pain for greater than 3 months and failing conservative treatments. Patient has committed and been compliant to the treatment plan and all planned follow up care. Since implantation of the intrathecal pain pump, the patient has had decreased pain and been more functional. Oral medications have been reduced including intake of oral opioids. Patient continues to do well with intrathecal therapy with decrease in pain symptoms and increase in functional status. Stopping intrathecal medications can lead to life threatening withdrawal, seizures, cardiac arrest, severe pain, and possible . Pumps that are not refilled at regular intervals can be damages and cause and need for replacement. We continually titrate dose and concentration to optimize pain relief and function. We are limited in concentration for certain drugs to safely deliver medications through the pump and stay within the recommendations from the Polyanalgesic Consensus Committee Guidelines. Depending on dose and concentration these pumps may need to be refilled sooner than 3 months as we titrate. A UDS is needed to verify patient's compliance with our office pain contract. This is ordered based off specific treatments related to chronic pain with the potential to abuse certain medications.
== END 2024-09-02 09:42 | disposition home or self-care (01) ==
PROVIDERS: PCP Nurse Practitioner Family; Visit Provider Nurse Practitioner Family
DX: M51.16 Intervertebral disc disorders with radiculopathy, lumbar region (principal); M54.9 Dorsalgia, unspecified; G89.29 Other chronic pain
CPT/HCPCS: 62370

== ENCOUNTER 2024-09-14 14:47 | Outpatient (CLI) | payer OTHER, SELFPAY ==
[2024-09-14 15:46] LABS: Albumin Level 5.5 g/dl (3.5-5.0)
[2024-09-14 15:48] LABS: Bilirubin,Unconjugated 0.3 mg/dL (0.0-1.1)
[2024-09-14 15:49] LABS: Alanine Aminotransferase 103 U/L (12-78); Alkaline Phosphatase 81 U/L (38-126); Aspartate Amino Transferase 75 U/L (17-59); Bilirubin,Direct 0.1 mg/dl (0.0-0.4); Bilirubin,Indirect 0.3 mg/dL (0.0-0.9); Bilirubin,Total 0.4 mg/dl (0.2-1.3); Total Protein,Serum 7.3 g/dl (6.3-8.2)
[2024-09-29 18:17] LABS: Alpha-1-Antitrypsin 89 mg/dL (95-164); Phenotype (PI) MZ (.)
== END 2024-09-14 23:59 | disposition home or self-care (01) ==
LOC: LAB 14:48
PROVIDERS: PCP Nurse Practitioner Family; Visit Provider Internal Medicine Pulmonary Disease
DX: E88.01 Alpha-1-antitrypsin deficiency (principal); J43.9 Emphysema, unspecified
CPT/HCPCS: 36415; 80076; 82103; 82104

== ENCOUNTER 2024-10-21 09:54 | Day surgery (SDC) | payer OTHER, SELFPAY ==
[2024-10-21 10:02] VITALS: BP 118/69; PULSE 74; RESP 16; TEMP 36.6; O2SAT 100; BMI 36.1
--- NOTE | 2024-10-21 10:23 | EXP.PAIN.PRO ---
Procedure Date: 10/21/24 Time: 10:34 Anesthesiologist:: Helene Fournier APRN Complications:: None Pre-procedure Diagnosis:: Degenerative disc disease of lumbar spine with lumbar radiculopathy symptoms Post-procedure Diagnosis:: Same Indications for Procedure:: Patient is a pleasant 38-year-old male who presents today for intrathecal refill and reprogram. Today he rates his pain a 5 out of 10. He denies any new trauma or injury. He does state that he is requesting an increase today on his intrathecal pump medication. Patient states that he has been in a new bed at a bunk bed with his youngest daughter and so has had a little bit more pain getting used to this. Patient is also managed from our office with baclofen 10 mg 3 times daily, Celebrex 100 mg twice daily and does have intrathecal bupivacaine 10 mg/mL with a daily dose of 3.0046 mg/day. He denies any side effects from these medications. His Jimbo has been reviewed and is appropriate. Physical Exam: General: Alert and oriented x3, no acute distress, pleasant and cooperative Lungs: Respirations even and unlabored, symmetrical chest expansion Eyes: PERRL Musculoskeletal: Flexion and extension of lumbar [spine] somewhat guarded secondary to pain, [antalgic gait noted] Neurological: Speech clear, no gross sensory deficit Procedure Details:: Informed consent was obtained and the risk and benefits of the procedure were explained to the patient. The patient had noninvasive monitoring placed including noninvasive blood pressure cuff and pulse oximeter. Patient's pump was interrogated. The area over the pump was cleansed with chlorhexidine as a cleansing solution. In sterile fashion the pump was accessed with a 22-gauge needle. Approximately 5 mls of the pump solution was removed and discarded appropriately. The pump was then refilled with 20 mL's of bupivacaine 10 mg/mL. The needle was withdrawn and a bandage was placed over the puncture site. The infusion rate was reprogrammed and increased 10% to bupivacaine 3.302 mg/day. The patient tolerated well with no complication. Plan and Disposition:: Patient tolerated the procedure well with no complications and was discharged neurologically intact. I did send in a 3-month supply of the baclofen. After reviewing his previous charts we did actually stop the Celebrex because he got put on blood thinners daily. Patient will return to clinic on or before their next intrathecal refill date. We will see the patient back in the clinic at the next intrathecal refill. Patient has been instructed to contact the clinic with any concerns before the next appointment. Dr. Eden has reviewed this note and agrees with this plan of care. This note was dictated using voice recognition software and make contain errors or omissions. -- It Is medically necessary for this patient to continue to have their intrathecal pump refilled at regular intervals. This patient had an intrathecal pain pump implanted after meeting criteria of chronic intractable pain for greater than 3 months and failing conservative treatments. Patient has committed and been compliant to the treatment plan and all planned follow up care. Since implantation of the intrathecal pain pump, the patient has had decreased pain and been more functional. Oral medications have been reduced including intake of oral opioids. Patient continues to do well with intrathecal therapy with decrease in pain symptoms and increase in functional status. Stopping intrathecal medications can lead to life threatening withdrawal, seizures, cardiac arrest, severe pain, and possible . Pumps that are not refilled at regular intervals can be damages and cause and need for replacement. We continually titrate dose and concentration to optimize pain relief and function. We are limited in concentration for certain drugs to safely deliver medications through the pump and stay within the recommendations from the Polyanalgesic Consensus Committee Guidelines. Depending on dose and concentration these pumps may need to be refilled sooner than 3 months as we titrate. A UDS is needed to verify patient's compliance with our office pain contract. This is ordered based off specific treatments related to chronic pain with the potential to abuse certain medications.
[2024-10-21 10:29] VITALS: BP 120/80; PULSE 93; RESP 18; O2SAT 96
[2024-10-21 10:30] VITALS: BP 120/80; PULSE 92; RESP 18; O2SAT 94
[2024-10-21 10:40] VITALS: BP 111/72; PULSE 94; RESP 16; O2SAT 97
== END 2024-10-21 10:40 | disposition home or self-care (01) ==
PROVIDERS: PCP Nurse Practitioner Family; Visit Provider Nurse Practitioner Family
DX: M51.16 Intervertebral disc disorders with radiculopathy, lumbar region (principal)
CPT/HCPCS: 62370

== ENCOUNTER 2024-12-09 09:11 | Day surgery (SDC) | payer MEDICARE, OTHER, SELFPAY ==
--- NOTE | 2024-12-09 09:16 | XR_ITS ---
FINAL REPORT CLINICAL HISTORY: Foot Pain COMPARISON: None FINDINGS: RIGHT FOOT 3 views of the right foot were obtained. There is no acute fracture or dislocation. Visualized joint spaces are normally aligned. Soft tissues are unremarkable. IMPRESSION: No acute bony abnormality. Reviewed, Interpreted and Dictated by Harish Caputo MD Transcribed by Barbara Cifuentes Authenticated and [facility]
--- NOTE | 2024-12-09 09:16 | XR_ITS ---
FINAL REPORT CLINICAL HISTORY: Ankle Pain COMPARISON: None FINDINGS: RIGHT ANKLE 3 views of the right ankle were obtained. There is no acute fracture or dislocation. The mortise is intact. Visualized joint spaces are normally aligned. Soft tissues are unremarkable. IMPRESSION: No acute bony abnormality. Reviewed, Interpreted and Dictated by Harish Caputo MD Transcribed by Barbara Cifuentes Authenticated and [facility]
--- NOTE | 2024-12-09 09:41 | P.HP_ITS ---
History of Present Illness *Admission Date: 12/09/24 *Reason for visit:: Intrathecal refill, DDD *History of present illness: Degenerative disc disease [facility] Disclaimer: The information contained in this section may have been updated after the patient was seen, as this information can be updated by other users. Medical History Impacted cerumen of both ears Tinnitus, bilateral Stranguria Frequency of micturition Palpitations Suicidal ideation Exposure to COVID-19 virus URI (upper respiratory infection) Ingrown toenail of left foot with infection Pain and swelling of toe of left foot Obesity (BMI 30.0-34.9) Ingrowing Toenail Postlaminectomy syndrome Degenerative disc disease SOB (shortness of breath) Chest pain Chronic HFrEF (heart failure with reduced ejection fraction) Right foot infection Edema of right foot History of urinary frequency Tinnitus Impacted cerumen, bilateral Hearing difficulty of both ears History of esophageal dilatation Fatty liver [id number] deficiency Esophageal stricture Hx of esophageal stretching x 2, AVOID LENARD LV dysfunction Cardiomyopathy Anxiety Hypertension Daytime somnolence History, findings on exam and risk factors are suggestive of underlying sleep disordered breathing. Recent home sleep study was inconclusive and cannot exclude underlying mild MARYCRUZ. I am recommending a PSG under supervision at the sleep center. The patient voiced understanding and was in agreement with the plan. Snoring Fatigue Systolic heart failure Abnormal result of cardiovascular function study Abnormal electrocardiogram [ECG] [EKG] Surgical History History of surgery spinal stimulator placement History of arthroplasty of right hip H/O lumbar discectomy History of right knee surgery History of tonsillectomy and adenoidectomy History of appendectomy Family History Other Diabetes Family history non-contributory Social History Smoking Status: Never smoker second hand exposure: No alcohol intake: never substance use type: denies use current occupational status: other Travel in the last 8 weeks?: None household members: spouse housing: house current occupation: [employer] current occupational exposures/hazards: No caffeine: Yes Have you lived/traveled outside [place] in past 30 days?: No Contact w/someone who lives/traveled outside [place] past 30 days?: No Exposure to someone with infectious disease in past 14 days?: No Do you have a fever (greater than 100.4 F or 38 C)?: No Have you tested positive for COVID-19?: No Exposed to someone with COVID-19 in past 14 days?: No Do you have a sore throat?: No Do you have a cough?: No Do you have any weakness?: No Do you have any diarrhea?: No Are you experiencing any unusual bleeding?: No Do you have any muscle aches/pain?: No Do you have any abdominal pain?: No Are you experiencing loss of taste or smell?: No Other Medical History Have you received the Flu Vaccine for this season: No Have you received the Pneumonia Vaccine: No Review of Systems Review of Systems Review of systems:: pertinent systems reviewed and negative unless documented below Review of systems (narrative): Review of Systems: General: No recent weight changes, no fever, no sleep disturbances Respiratory: No cough, no shortness of air, no recurring pulmonary infections Cardiovascular/peripheral vascular: No chest pain, no palpitations, no edema, no shortness of breath Gastrointestinal: No new onset incontinence, normal bowel movements reported Genitourinary: No new onset incontinence Musculoskeletal: Chronic back pain Psychiatric: [Normal mood/affect] Neurological: [Denies weakness in extremities], [denies balance issues] Meds Home Medications and Allergies Home Medications ?Medication ?Instructions ?Recorded ?Confirmed ?Type famotidine 40 mg tablet 40 mg PO DAILY 05/19/22 12/09/24 History multivitamin 1 tab PO DAILY SUPPLIMENT 08/13/22 12/09/24 History pantoprazole 40 mg tablet,delayed 40 mg PO BID 10/02/22 12/09/24 History release quetiapine 100 mg tablet 100 mg PO HS 05/12/23 12/09/24 History oxcarbazepine 150 mg tablet 150 mg PO BID 07/21/23 12/09/24 History (Trileptal) sacubitril 49 mg-valsartan 51 mg 1 tab PO BID #60 tabs 12/08/23 12/09/24 Rx tablet (Entresto) buspirone 15 mg tablet 15 mg PO TID 02/29/24 12/09/24 History azelastine 137 mcg (0.1 %) nasal 2 spray intranasal BID #30 mL 04/07/24 12/09/24 Rx spray oxybutynin chloride 10 mg 10 mg PO DAILY #90 tabs 04/18/24 12/09/24 Rx tablet,extended release 24 hr tamsulosin 0.4 mg capsule (Flomax) 0.4 mg PO DAILY #30 caps 04/18/24 12/09/24 Rx celecoxib 100 mg capsule 100 mg PO BID 06/22/24 12/09/24 History clobetasol 0.05 % shampoo 1 applic topical DAILYP PRN Skin 06/22/24 12/09/24 History Irritation clobetasol 0.05 % topical ointment 1 applic topical TIDP PRN Itching 06/22/24 12/09/24 History ketoconazole 2 % topical cream 1 applic topical BIDP PRN Skin 06/22/24 12/09/24 History Irritation metoprolol succinate 25 mg See Rx Instructions PO BID #270 09/01/24 12/09/24 Rx tablet,extended release 24 hr tabs (Toprol XL) doxepin 50 mg capsule 50 mg PO HS 09/14/24 12/09/24 History duloxetine 60 mg capsule,delayed 60 mg PO BID 09/14/24 12/09/24 History release methylprednisolone 4 mg tablets in See Rx Instructions PO PER PKG DIR 10/06/24 12/09/24 Rx a dose pack (Medrol (Sam)) #21 tabs baclofen 10 mg tablet 10 mg PO TID #90 tabs 10/21/24 12/09/24 Rx diclofenac sodium 1 % topical gel See Rx Instructions .Route 10/22/24 12/09/24 Rx .COMPLEX #100 grams dapagliflozin propanediol 5 mg 5 mg PO DAILY #90 tabs 11/07/24 12/09/24 Rx tablet (Farxiga) ammonium lactate 12 % topical cream 1 applic topical BID dry skin, 11/08/24 12/09/24 Rx callus care 30 days #385 grams mupirocin 2 % topical ointment 1 applic topical BID infection 14 11/08/24 12/09/24 Rx days #22 grams rivaroxaban 20 mg tablet 20 mg PO QPMWITHMEAL 30 days #30 11/14/24 12/09/24 Rx tabs New Prescriptions to Start Prescriptions: Allergies Allergy/AdvReac Type Severity Reaction Status Date / Time Penicillins (PENICILLINS) Allergy Intermediate I-RASH Verified 12/05/24 11:24 tizanidine Allergy Difficulty Verified 11/08/24 09:57 Breathing Exam Constitutional Constitutional: no acute distress *Routine HEENT Exam Head: Present normocephalic and atraumatic Eye: Present PERRL ENT: Present mucous membranes moist *Routine Neck Exam Neck: Present supple *Routine Respiratory Exam Respiratory: Present CTA bilaterally *Routine Cardiovascular Exam Cardiovascular: Present RRR *Routine Abdominal Exam Abdominal: Present soft *Routine Rectal Exam Rectal:: deferred *Routine Genitalia Exam Genitalia:: normal male Routine Back/Spine/Pelvis Exam Back/Spine: Present pain with flexion *Routine Neurological Exam Neurological: Present alert and oriented X3 Routine Psychiatric Exam Psychiatric: Present normal affect Assessment and Plan *Assessment and plan (1) Degenerative disc disease, lumbar: Status: Acute Qualifiers: Disc-related pain type: discogenic back pain and lower extremity pain Qualified Code(s): M51.362 - Other intervertebral disc degeneration, lumbar region with discogenic back pain and lower extremity pain Category: Medical Code(s): M51.369 - Other intervertebral disc degeneration, lumbar region without mention of lumbar back pain or lower extremity pain Plan Patient has been instructed to contact the clinic with any concerns before the next appointment. Dr. Eden has reviewed this note and agrees with this plan of care. This note was dictated using voice recognition software and make contain errors or omissions. All injections are used with Lidocaine, Bupivacaine and dexamethasone. Occasionally urine drug screen is needed to verify patient's compliance with our office pain contract. This is ordered based off specific treatments related to chronic pain with the potential to abuse certain medications.
--- NOTE | 2024-12-09 09:45 | P.PCN_ITS ---
Procedure Date: 12/09/24 Time: 10:07 Anesthesiologist:: Helene Fournier APRN Complications:: None Pre-procedure Diagnosis:: Degenerative disc disease of lumbar spine with lumbar radiculopathy symptoms, chronic pain syndrome Post-procedure Diagnosis:: Same Indications for Procedure:: Patient is a pleasant 39-year-old male who presents today for intrathecal refill and reprogram. Today he rates his pain a 3 out of 10. He denies any new trauma or injury. He is currently managed with bupivacaine 10 mg/mL with a daily dose of 3.0046 mg/day and baclofen 10 mg 3 times a day, Celebrex 100 mg twice a day. He denies any side effects. His Jimbo has been reviewed and is appropriate. Physical Exam: General: Alert and oriented x3, no acute distress, pleasant and cooperative Lungs: Respirations even and unlabored, symmetrical chest expansion Eyes: PERRL Musculoskeletal: Flexion and extension of lumbar [spine] somewhat guarded secondary to pain, [antalgic gait noted] Neurological: Speech clear, no gross sensory deficit Procedure Details:: Informed consent was obtained and the risk and benefits of the procedure were explained to the patient. The patient had noninvasive monitoring placed including noninvasive blood pressure cuff and pulse oximeter. Patient's pump was interrogated. The area over the pump was cleansed with chlorhexidine as a cleansing solution. In sterile fashion the pump was accessed with a 22-gauge needle. Approximately 3 mls of the pump solution was removed and discarded appropriately. The pump was then refilled with 20 mL's of bupivacaine 10 mg/mL. The needle was withdrawn and a bandage was placed over the puncture site. The infusion rate was reprogrammed and continued at its current dosage. The patient tolerated well with no complication. Plan and Disposition:: Patient tolerated the procedure well with no complications and was discharged neurologically intact. I will also make sure that he has refills on his Celebrex and baclofen. Patient will return to clinic on or before their next intrathecal refill date. We will see the patient back in the clinic at the next intrathecal refill. Patient has been instructed to contact the clinic with any concerns before the next appointment. Dr. Eden has reviewed this note and agrees with this plan of care. This note was dictated using voice recognition software and make contain errors or omissions. -- It Is medically necessary for this patient to continue to have their intrathecal pump refilled at regular intervals. This patient had an intrathecal pain pump implanted after meeting criteria of chronic intractable pain for greater than 3 months and failing conservative treatments. Patient has committed and been compliant to the treatment plan and all planned follow up care. Since implan tation of the intrathecal pain pump, the patient has had decreased pain and been more functional. Oral medications have been reduced including intake of oral opioids. Patient continues to do well with intrathecal therapy with decrease in pain symptoms and increase in functional status. Stopping intrathecal medications can lead to life threatening withdrawal, seizures, cardiac arrest, severe pain, and possible . Pumps that are not refilled at regular intervals can be damages and cause and need for replacement. We continually titrate dose and concentration to optimize pain relief and function. We are limited in concentration for certain drugs to safely deliver medications through the pump and stay within the recommendations from the Polyanalgesic Consensus Committee Guidelines. Depending on dose and concentration these pumps may need to be refilled sooner than 3 months as we titrate. A UDS is needed to verify patient's compliance with our office pain contract. This is ordered based off specific treatments related to chronic pain with the potential to abuse certain medications.
[2024-12-09 09:49] VITALS: BP 116/78; PULSE 73; RESP 16; O2SAT 97; BMI 36.0
[2024-12-09 10:01] VITALS: BP 105/68; PULSE 79; RESP 18; O2SAT 96
[2024-12-09 10:14] VITALS: BP 108/66; PULSE 63; RESP 16; O2SAT 96
== END 2024-12-09 10:14 | disposition home or self-care (01) ==
PROVIDERS: PCP Nurse Practitioner Family; Visit Provider Nurse Practitioner Family
DX: M51.16 Intervertebral disc disorders with radiculopathy, lumbar region (principal); G89.4 Chronic pain syndrome; M25.571 Pain in right ankle and joints of right foot; M79.671 Pain in right foot
CPT/HCPCS: 62370; 73610; 73630; 99221

== ENCOUNTER 2024-12-12 12:48 | Outpatient (CLI) | payer MEDICARE, OTHER, SELFPAY ==
[2024-12-12 13:40] VITALS: PULSE 77; PULSE 82
[2024-12-12] MEDS: ALBUTEROL 0.083% 2.5 MG/3 ML NEB IH (13:40)
== END 2024-12-12 23:59 | disposition home or self-care (01) ==
LOC: RT 12:49
PROVIDERS: PCP Nurse Practitioner Family; Visit Provider Internal Medicine Pulmonary Disease
DX: R06.09 Other forms of dyspnea (principal)
CPT/HCPCS: 94060; 94618; 94640; 94726; 94729; J7613

== ENCOUNTER 2025-01-04 09:00 | Outpatient (RCR) | payer MEDICARE, OTHER, SELFPAY ==
--- NOTE | 2024-12-15 08:58 | HMH.PTOPEV ---
PT Outpatient Evaluation Rehab PT Outpatient Evaluation Start: 12/15/24 08:35 Freq: Status: Active Protocol: Document 12/15/24 08:36 NICOLE (Rec: 12/15/24 08:57 NICOLE [id number]) E-signed By Jean Nunez, PT Outpatient Therapy Subjective History Subjective History Pt is a 39 yof who is referred to [facility] outpatient PT with complaints of r foot pain that began 2-3 years ago. The pt reports that the pain has not improved or worsened in this time. Describes isolated pain in the heel. Pt reports that it is painful to bear weight through the heel of his foot. Reports that he has been walking with a quad cane for approximately 1.5 years. Reports that he also has chronic low back pain being managed with an intrathecal pain pump and spinal cord stimulator. He reports that he has a night splint for PF but only tried it once because it hurt too bad. Reports that he has also tried rolling his foot on a frozen water bottle one time. Occupation: Disabled PMH: Fatty Liver, Systolic Heart Failure, Cardiomyopathy, Chronic LBP New diagnosis of cancer in past 12 No months? Chief Complaint Pain,Weakness Symptom Type Sharp,Stabbing Symptoms Relieved By Nothing Symptoms Aggravated By Standing,Physical Activity, Walking,Lifting Prior Functional Limitations None Current Functional Limitations Lifting,Housework,Standing, Squatting,Recreation Activity, Walking,Stairs,Balance Symptom Description Constant but Variable,Activity Dependent Level of pain today (0-10) 4 Pain scale - at its best (0-10) 4 Pain scale - at its worst (0-10) 9 Ankle/Foot Eval Gait Observation General Gait Pattern Observation Antalgic Gait,Decrease Weight Bear (R),Decrease Weight Bear (L) Assistive Device Ambulation Assistive Device Small Base Quad Cane Palpation Tenderness right Ankle/Foot Palpation Findings Tenderness Ankle/Foot Palpation Overall Comment TTP 4/4 to calcaneal tubercle ROM Ankle/Foot Dorsiflexion w/Knee Extended 0 Active Range Motion (degrees) Ankle/Foot Dorsiflexion w/Knee Extended 2 Passive Range (degrees) Ankle/Foot Plantar Flexion Active Range 45 of Motion (degrees) Ankle/Foot Plantar Flexion Passive Range 50 of Motion (degrees) Ankle/Foot Eversion Active Range of 10 Motion (degrees) Ankle/Foot Eversion Passive Range of 14 Motion (degrees) Ankle/Foot Inversion Active Range of 12 Motion (degrees) Ankle/Foot Inversion Passive Range of 17 Motion (degrees) Ankle/Foot ROM Limitations Soft Tissue Tightness MMT Ankle Dorsiflexion Strength Grade 2+ Poor+ Ankle Plantarflexion Strength Grade 3+ Fair+ Foot Eversion Strength Grade 2 Poor Foot Inversion Strength Grade 2 Poor Special Tests Ankle Anterior Drawer Test Negative Right Ankle Eversion Test Negative Right Talar Tilt Test Negative Right Ankle Inversion (supination) Test Negative Right Ankle Posterior Drawer Test Negative Right Foot/Heel Tap/Percussion Test Negative Right Lower Extremity Functional Index Activities Today, do you or would you have any difficulty at all with: a.Any of your usual work, housework or Moderate difficulty school activities b. Your usual hobbies, recreational or Moderate difficulty sporting activities c. Getting into or out of the bath Moderate difficulty d. Walking between rooms Quite a bit of difficulty e. Putting on your shoes or socks Moderate difficulty f. Squatting Quite a bit of difficulty g. Lifting an object, like a bag of A little bit of difficulty groceries from the floor h. Performing light activities around A little bit of difficulty your home i. Performing heavy activities around Extreme difficulty or unable your home to perform activity j. Getting into or out of a car Moderate difficulty k. Walking 2 blocks Extreme difficulty or unable to perform activity l. Walking a mile Extreme difficulty or unable to perform activity m. Going up or down 10 stairs (about 1 Quite a bit of difficulty flight of stairs) n. Standing for 1 hour Extreme difficulty or unable to perform activity o. Sitting for 1 hour Extreme difficulty or unable to perform activity p. Running on even ground Extreme difficulty or unable to perform activity q. Running on uneven ground Extreme difficulty or unable to perform activity r. Making sharp turns while running fast Extreme difficulty or unable to perform activity s. Hopping Extreme difficulty or unable to perform activity t. Rolling over in bed No difficulty LEFI Score Lower Extremity Functional Index Score 23 Miscellaneous Dx PT Eval Objective Objective Gait Assessment: Early heel off R foot during terminal stance. Decreased dorsiflexion during loading response and mid-stance of R foot. + Windlass Test Outpatient Therapy Assessment Impairments Problems/Impairmments Palpation Tenderness,Impaired Range of Motion,Impaired Strength,Impaired Gait Pattern ,Impaired Walking,Impaired Standing,Impaired Household Care,Impaired Stair Climbing, Impaired Squatting,Impaired Balance,Subjective C/O Pain Prognosis Rehab Potential Fair Clinical Impression Consistent with Diagnosis Yes Consistent with R Plantar Fasciitis Short Term Goals Number of Weeks 3 Decreased Palpation Tenderness Yes: 2-3/4 to TTP Assessment above Increase Range of Motion Yes: Improve DF to >5 degrees AROM Increase Strength Yes: 3+/5 to R foot grossly Improve Gait Pattern with Assistive Yes: Increased DF throughout Device gait cycle with AAD. Increase Ability to Stand Yes: 30 minutes without increasing pain Improve LEFI Score Yes: >33 Decrease Subjective C/O Pain Yes: 10 with above assessment Patient to be Ind w/ HEP Yes Filament Coil Winder Goals Number of Weeks 6 Decreased Palpation Tenderness Yes: 0-1/4 to TTP assessment above Increase Range of Motion Yes: >12 degrees of DF of R foot Increase Strength Yes: 4-4+/5 to R foot Grossly Improve Gait Pattern without Assistive Yes: Improved gait mechanics Device and able to ambulate without AD Increase Ability to Stand Yes: 1 hour without increasing pain Improve Ability to Climb Stairs Yes: Flight of stairs with reciprocal stepping pattern. Improve LEFI Score Yes: >45 Decrease Subjective C/O Pain Yes: 2-310 with above assessment Outpatient Therapy Plan of Care Treatment Plan May Include Therapeutic Exercise Including Home Yes Exercise Program Manual Therapy Techniques Yes Neuromuscular Re-education Yes Therapeutic Activities to Return to Yes Previous Functional/Work Level Gait Training Yes Dry Needling Yes Thermal Modalities Yes Electrical Stimulation Yes Ultrasound/Phonophoresis Yes Iontophoresis Yes Orthotics/Bracing/Splinting Yes Massage Yes Manual Lymphatic Drainage Yes Eval/Re-Eval Yes Frequency Times per week 1-2 Duration Number of Weeks 6 Addendums This patient is a candidate for social No or vocational rehab? Patient/Guardian verbally acknowledges Yes understanding of treatment program and consents to further treatment? Patient/Guardian verbally acknowledges Yes understanding of diagnosis, prognosis and goals for treatment? Eval Complexity PT Charges 82017 - High Complexity Shoulder/Elbow Eval Shoulder Objective Measurements Elbow Objective Measurements PHYSICIAN CERTIFICATION: I certify the specified therapy services for Bill Tesfaye are required, authorized, and reviewed every 30 days.
== END 2025-01-04 23:59 | disposition home or self-care (01) ==
LOC: PT 09:00
PROVIDERS: Visit Provider Nurse Practitioner
DX: M72.2 Plantar fascial fibromatosis (principal)
CPT/HCPCS: 97035; 97110; 97140; 97163; 97530

== ENCOUNTER 2025-01-27 08:48 | Day surgery (SDC) | payer MEDICARE, SELFPAY ==
[2025-01-27 09:00] VITALS: BP 109/72; PULSE 73; RESP 18; TEMP 36.4; O2SAT 98; BMI 36.9
--- NOTE | 2025-01-27 09:06 | EXP.PM.HP ---
History of Present Illness *Admission Date: 01/27/25 *Reason for visit:: Intrathecal refill; DDD *History of present illness: Same [facility] Disclaimer: The information contained in this section may have been updated after the patient was seen, as this information can be updated by other users. Medical History Impacted cerumen of both ears Tinnitus, bilateral Stranguria Frequency of micturition Palpitations Suicidal ideation Exposure to COVID-19 virus URI (upper respiratory infection) Ingrown toenail of left foot with infection Pain and swelling of toe of left foot Obesity (BMI 30.0-34.9) Ingrowing Toenail Postlaminectomy syndrome Degenerative disc disease SOB (shortness of breath) Chest pain Chronic HFrEF (heart failure with reduced ejection fraction) Right foot infection Edema of right foot History of urinary frequency Tinnitus Impacted cerumen, bilateral Hearing difficulty of both ears History of esophageal dilatation Fatty liver [id number] deficiency Esophageal stricture Hx of esophageal stretching x 2, AVOID LENARD LV dysfunction Cardiomyopathy Anxiety Hypertension Daytime somnolence History, findings on exam and risk factors are suggestive of underlying sleep disordered breathing. Recent home sleep study was inconclusive and cannot exclude underlying mild MARYCRUZ. I am recommending a PSG under supervision at the sleep center. The patient voiced understanding and was in agreement with the plan. Snoring Fatigue Systolic heart failure Abnormal result of cardiovascular function study Abnormal electrocardiogram [ECG] [EKG] Surgical History History of surgery spinal stimulator placement History of arthroplasty of right hip H/O lumbar discectomy History of right knee surgery History of tonsillectomy and adenoidectomy History of appendectomy Family History Other Diabetes Family history non-contributory Social History Smoking Status: Never smoker second hand exposure: No alcohol intake: never substance use type: denies use current occupational status: other Travel in the last 8 weeks?: None household members: spouse housing: house current occupation: [employer] current occupational exposures/hazards: No caffeine: Yes Have you lived/traveled outside US in past 30 days?: No Contact w/someone who lives/traveled outside US past 30 days?: No Exposure to someone with infectious disease in past 14 days?: No Do you have a fever (greater than 100.4 F or 38 C)?: No Have you tested positive for COVID-19?: No Exposed to someone with COVID-19 in past 14 days?: No Do you have a sore throat?: No Do you have a cough?: No Do you have any weakness?: No Do you have any diarrhea?: No Are you experiencing any unusual bleeding?: No Do you have any muscle aches/pain?: No Do you have any abdominal pain?: No Are you experiencing loss of taste or smell?: No Other Medical History Have you received the Flu Vaccine for this season: No Have you received the Pneumonia Vaccine: No Review of Systems Review of Systems Review of systems:: pertinent systems reviewed and negative unless documented below Review of systems (narrative): Review of Systems: General: No recent weight changes, no fever, no sleep disturbances Respiratory: No cough, no shortness of air, no recurring pulmonary infections Cardiovascular/peripheral vascular: No chest pain, no palpitations, no edema, no shortness of breath Gastrointestinal: No new onset incontinence, normal bowel movements reported Genitourinary: No new onset incontinence Musculoskeletal: Chronic back pain Psychiatric: [Normal mood/affect] Neurological: [Denies weakness in extremities], [denies balance issues] Meds Home Medications and Allergies Home Medications ?Medication ?Instructions ?Recorded ?Confirmed ?Type famotidine 40 mg tablet 40 mg PO DAILY 05/19/22 01/10/25 History multivitamin 1 tab PO DAILY SUPPLIMENT 08/13/22 01/10/25 History pantoprazole 40 mg tablet,delayed 40 mg PO BID 10/02/22 01/10/25 History release quetiapine 100 mg tablet 100 mg PO HS 05/12/23 01/10/25 History oxcarbazepine 150 mg tablet 150 mg PO BID 07/21/23 01/10/25 History (Trileptal) buspirone 15 mg tablet 15 mg PO TID 02/29/24 01/10/25 History azelastine 137 mcg (0.1 %) nasal 2 spray intranasal BID #30 mL 04/07/24 01/10/25 Rx spray oxybutynin chloride 10 mg 10 mg PO DAILY #90 tabs 04/18/24 01/10/25 Rx tablet,extended release 24 hr tamsulosin 0.4 mg capsule (Flomax) 0.4 mg PO DAILY #30 caps 04/18/24 01/10/25 Rx celecoxib 100 mg capsule 100 mg PO BID 06/22/24 01/10/25 History clobetasol 0.05 % shampoo 1 applic topical DAILYP PRN Skin 06/22/24 01/10/25 History Irritation clobetasol 0.05 % topical ointment 1 applic topical TIDP PRN Itching 06/22/24 01/10/25 History ketoconazole 2 % topical cream 1 applic topical BIDP PRN Skin 06/22/24 01/10/25 History Irritation metoprolol succinate 25 mg See Rx Instructions PO BID #270 09/01/24 01/10/25 Rx tablet,extended release 24 hr tabs (Toprol XL) doxepin 50 mg capsule 50 mg PO HS 09/14/24 01/10/25 History duloxetine 60 mg capsule,delayed 60 mg PO BID 09/14/24 01/10/25 History release diclofenac sodium 1 % topical gel See Rx Instructions .Route 10/22/24 01/10/25 Rx .COMPLEX #100 grams dapagliflozin propanediol 5 mg 5 mg PO DAILY #90 tabs 11/07/24 01/10/25 Rx tablet (Farxiga) ammonium lactate 12 % topical cream 1 applic topical BID dry skin, 11/08/24 01/10/25 Rx callus care 30 days #385 grams rivaroxaban 20 mg tablet 20 mg PO QPMWITHMEAL 30 days #30 11/14/24 01/10/25 Rx tabs baclofen 10 mg tablet 10 mg PO TID #90 tabs 12/09/24 01/10/25 Rx sacubitril 49 mg-valsartan 51 mg 1 tab PO BID #60 tabs 12/27/24 01/10/25 Rx tablet (Entresto) mupirocin 2 % topical ointment See Rx Instructions .Route 01/08/25 01/10/25 Rx .COMPLEX #22 grams New Prescriptions to Start Prescriptions: Allergies Allergy/AdvReac Type Severity Reaction Status Date / Time Penicillins (PENICILLINS) Allergy Intermediate I-RASH Verified 01/10/25 11:15 tizanidine Allergy Difficulty Verified 01/10/25 11:15 Breathing Exam Constitutional Constitutional: no acute distress *Routine HEENT Exam Head: Present normocephalic and atraumatic Eye: Present PERRL ENT: Present mucous membranes moist *Routine Neck Exam Neck: Present supple *Routine Respiratory Exam Respiratory: Present CTA bilaterally *Routine Cardiovascular Exam Cardiovascular: Present RRR *Routine Abdominal Exam Abdominal: Present soft *Routine Rectal Exam Rectal:: deferred *Routine Genitalia Exam Genitalia:: deferred Routine Back/Spine/Pelvis Exam Back/Spine: Present pain with flexion *Routine Skin Exam Skin: Present intact and warm *Routine Neurological Exam Neurological: Present alert and oriented X3 Routine Psychiatric Exam Psychiatric: Present normal affect and normal thought process Assessment and Plan *Assessment and plan (1) Degenerative disc disease, lumbar: Status: Acute Qualifiers: Disc-related pain type: discogenic back pain and lower extremity pain Qualified Code(s): M51.362 - Other intervertebral disc degeneration, lumbar region with discogenic back pain and lower extremity pain Category: Medical Code(s): M51.369 - Other intervertebral disc degeneration, lumbar region without mention of lumbar back pain or lower extremity pain (2) Chronic low back pain: Status: Acute Qualifiers: Back pain laterality: bilateral Sciatica presence: without sciatica Qualified Code(s): M54.50 - Low back pain, unspecified; G89.29 - Other chronic pain Category: Medical Code(s): M54.50 - Low back pain, unspecified; G89.29 - Other chronic pain Plan Patient has been instructed to contact the clinic with any concerns before the next appointment. Dr. Eden has reviewed this note and agrees with this plan of care. This note was dictated using voice recognition software and make contain errors or omissions. All injections are used with Lidocaine, Bupivacaine and dexamethasone. Occasionally urine drug screen is needed to verify patient's compliance with our office pain contract. This is ordered based off specific treatments related to chronic pain with the potential to abuse certain medications.
--- NOTE | 2025-01-27 09:08 | EXP.PAIN.PRO ---
Procedure Date: 01/27/25 Time: 09:17 Anesthesiologist:: Helene Fournier APRN Complications:: None Pre-procedure Diagnosis:: Degenerative disc disease of lumbar spine with lumbar radiculopathy symptoms Post-procedure Diagnosis:: Same Indications for Procedure:: Patient is a pleasant 39-year-old male who presents today for his intrathecal refill and reprogram. Today he rates his pain a 3 out of 10. He denies any new falls or injuries.Patient is also managed with baclofen 10 mg 3 times a day in combination with his pump of bupivacaine 10 mg/mL with a daily dose of 3.0046 mg/day. He denies any side effects. He is prescribed gabapentin from an outside provider. His Jimbo has been reviewed and is appropriate. Physical Exam: General: Alert and oriented x3, no acute distress, pleasant and cooperative Lungs: Respirations even and unlabored, symmetrical chest expansion Eyes: PERRL Musculoskeletal: Flexion and extension of lumbar [spine] somewhat guarded secondary to pain, [antalgic gait noted] Neurological: Speech clear, no gross sensory deficit Procedure Details:: Informed consent was obtained and the risk and benefits of the procedure were explained to the patient. The patient had noninvasive monitoring placed including noninvasive blood pressure cuff and pulse oximeter. Patient's pump was interrogated. The area over the pump was cleansed with chlorhexidine as a cleansing solution. In sterile fashion the pump was accessed with a 22-gauge needle. Approximately 3.9 mls of the pump solution was removed and discarded appropriately. The pump was then refilled with 20 mL's of bupivacaine 10 mg/mL. The needle was withdrawn and a bandage was placed over the puncture site. The infusion rate was reprogrammed and continued at its current dosage. The patient tolerated well with no complication. Plan and Disposition:: Patient tolerated the procedure well with no complications and was discharged neurologically intact. Patient will return to clinic on or before their next intrathecal refill date. We will see the patient back in the clinic at the next intrathecal refill. Patient has been instructed to contact the clinic with any concerns before the next appointment. Dr. Eden has reviewed this note and agrees with this plan of care. This note was dictated using voice recognition software and make contain errors or omissions. -- It Is medically necessary for this patient to continue to have their intrathecal pump refilled at regular intervals. This patient had an intrathecal pain pump implanted after meeting criteria of chronic intractable pain for greater than 3 months and failing conservative treatments. Patient has committed and been compliant to the treatment plan and all planned follow up care. Since implantation of the intrathecal pain pump, the patient has had decreased pain and been more functional. Oral medications have been reduced including intake of oral opioids. Patient continues to do well with intrathecal therapy with decrease in pain symptoms and increase in functional status. Stopping intrathecal medications can lead to life threatening withdrawal, seizures, cardiac arrest, severe pain, and possible . Pumps that are not refilled at regular intervals can be damages and cause and need for replacement. We continually titrate dose and concentration to optimize pain relief and function. We are limited in concentration for certain drugs to safely deliver medications through the pump and stay within the recommendations from the Polyanalges[employer] Consensus Committee Guidelines. Depending on dose and concentration these pumps may need to be refilled sooner than 3 months as we titrate. A UDS is needed to verify patient's compliance with our office pain contract. This is ordered based off specific treatments related to chronic pain with the potential to abuse certain medications.
[2025-01-27 09:12] VITALS: BP 108/63; PULSE 76; RESP 18; O2SAT 96
[2025-01-27 09:27] VITALS: BP 115/73; PULSE 72; RESP 16; O2SAT 100
== END 2025-01-27 09:27 | disposition home or self-care (01) ==
PROVIDERS: PCP Nurse Practitioner Family; Visit Provider Nurse Practitioner Family
DX: Z45.1 Encounter for adjustment and management of infusion pump (principal); M51.16 Intervertebral disc disorders with radiculopathy, lumbar region; E66.9 Obesity, unspecified; Z68.36 Body mass index [BMI] 36.0-36.9, adult; I11.0 Hypertensive heart disease with heart failure; I50.22 Chronic systolic (congestive) heart failure; E88.01 Alpha-1-antitrypsin deficiency; M96.1 Postlaminectomy syndrome, not elsewhere classified; K76.0 Fatty (change of) liver, not elsewhere classified; I42.9 Cardiomyopathy, unspecified; Z79.899 Other long term (current) drug therapy; Z88.0 Allergy status to penicillin; Z91.09 Other allergy status, other than to drugs and biological substances
CPT/HCPCS: 62370

== ENCOUNTER 2025-02-03 09:00 | Outpatient (RCR) | payer MEDICARE, SELFPAY ==
--- NOTE | 2025-01-16 08:56 | HMH.RHREAS ---
Rehab Reassessment Rehab OP Re-assessment Start: 01/16/25 07:58 Freq: Status: Active Protocol: Document 01/16/25 08:12 [place] (Rec: 01/16/25 08:56 NICOLE [id number]) E-signed By Jean Nunez PT Lower Extremity Functional Index Activities Today, do you or would you have any difficulty at all with: a.Any of your usual Moderate difficulty work, housework or school activities b. Your usual Moderate difficulty hobbies, recreational or sporting activities c. Getting into or A little bit of difficulty out of the bath d. Walking between A little bit of difficulty rooms e. Putting on your A little bit of difficulty shoes or socks f. Squatting Quite a bit of difficulty g. Lifting an object A little bit of difficulty , like a bag of groceries from the floor h. Performing light A little bit of difficulty activities around your home i. Performing heavy Moderate difficulty activities around your home j. Getting into or Moderate difficulty out of a car k. Walking 2 blocks Quite a bit of difficulty l. Walking a mile Quite a bit of difficulty m. Going up or down Quite a bit of difficulty 10 stairs (about 1 flight of stairs) n. Standing for 1 Extreme difficulty or unable to perform activity hour o. Sitting for 1 A little bit of difficulty hour p. Running on even Extreme difficulty or unable to perform activity ground q. Running on uneven Extreme difficulty or unable to perform activity ground r. Making sharp Extreme difficulty or unable to perform activity turns while running fast s. Hopping Extreme difficulty or unable to perform activity t. Rolling over in A little bit of difficulty bed LEFI Score Lower Extremity 33 Functional Index Score Rehab Re-assessment Subjective Subjective Pt reports that he is approximately 15% improved this date. Reports that he had to cancel his appointments last week and noticed a big difference in his symptoms when he did not have PT. Reports that the worst of his pain continues to be isolated to his R heel. Reports that he has not noticed any functional improvements at this point. Reports that he cannot stand for longer than 10 minutes without requiring to sit down. Reports that he has been doing his home exercises regularly. Reports that he also had another injection into his heel last week which has helped some. Reports pain throughout reassessment as a 5/10. Objective Objective Notes LEFS: 33 (23 on IE) ROM: 0 degrees Active DF, 4 degrees passive DF MMT: 2+ DF 2 PF 2+ Eversion 2+ Inversion Gait Assessment: Gait Assessment: Early heel off R foot during terminal stance. Decreased dorsiflexion during loading response and mid-stance of R foot. TTP: 3/4 to calcaneal tubercle and proximal plantar fascia - Windlass Test Assessment Progress Assessment Slower Than Expected Assessment Notes Pt has undergone one month of skilled PT thus far consisting of exercises to increase R ankle strength and mobility and modalities for pain management. Pt has demonstrated minimal progression thus far. Presenting with minimal changes in R ankle strength, ROM and gait mechanics. He has demonstrated slight improvements in pain, TTP, and LEFS score. Pt would continue to benefit from skilled PT to address his remaining impairments and promote a return to his PLOF. Patient goals met ST,6,7,8 LT Plan Plan Continue as per initial POC Frequency of Therapy 1-2/week Duration of therapy 4 weeks Time and Billing Re-Eval Time 10 Re-Eval Billing 0 Units Charge for PT No reassessment? PHYSICIAN CERTIFICATION: I certify the specified therapy services for Bill Tesfaye are required, authorized, and reviewed every 30 days.
== END 2025-02-03 23:59 | disposition home or self-care (01) ==
LOC: PT 09:00
PROVIDERS: Visit Provider Nurse Practitioner
DX: M72.2 Plantar fascial fibromatosis (principal)
CPT/HCPCS: 97110; 97112; 97140

== ENCOUNTER 2025-02-03 09:46 | Outpatient (CLI) | payer MEDICARE, MEDICAID, SELFPAY ==
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
--- OUTSIDE RECORDS SUMMARY | 2025-02-03 09:48 | XMS_ITS | Encounter Summary ---
Author Organization Healthcare Address [address] [place] [address] Care Team Providers Care Machine Tool Dresser Name Role Phone Mir Javier MD Primary Care Provider [phone] Inocencia Hastings APRN, DNP Unavailable [phone] Ly Morales APRN Primary Care Provider [phone] Encounter Details Date Type Department Care Team (Late st Contact Info) Description 06/09/2022 Orders Only External Location [address] [place] [address] Alex Perez MD [address] [facility] [address] [place] [id number] Social History Tobacco Use Types Packs/Day Years Used Date Smoking Tobacco: Never Smokeless Tobacco: Never Alcohol Use Standard Drinks/Week Comments No 0 (1 standard drink = 0.6 oz pur e alcohol) Sex and Gender Information Value Date Recorded Sex Assigned at Male 01/21/2021 12:55 PM EDT Legal Sex Male 5:58 PM EDT Gender Identity Male 01/21/2021 12:55 PM EDT Sexual Orientation Straight 01/21/2021 12 :55 PM EDT documented as of this encounter Plan of Treatment Upcoming Encounters Date Type Department Care Team (Late st Contact Info) Description 03/13/2025 9:00 AM EDT Office Visit [place] [facility] [address] [place] [address] Helene PalPATRICIA, DNP [address] [place] [address] documented as of this encounter Procedures Procedure Name Priority Date/Time Associated Diagnosis Comments IR OUTSIDE IMAGES 06/09/2022 10:08 AM EDT documented in this encounter Results * IR OUTSIDE IMAGES (06/09/2022 10:08 AM EDT) Anatomical Region Laterality Modality X-Ray Angiograph y 06/09/2022 10:0 8 AM EDT us Alex Perez MD IMG IR PROCEDURES Final Re sult documented in this encounter Visit Diagnoses Not on filedocumented in this encounter Additional Health Concerns Assessment Noted Time A fall risk assessment has been complete d for the patient 12/12/2021 2:44 PM EDT documented as of this encounter Care Teams Machine Tool Dresser Relationship Specialty Start Date End Date Mir Javier MD [address] [place] [address] PCP - General 12/21/20 12/28/22 Ly Morales APRN [address] [place] [address] PCP - General 12/29/22 Inocencia Hastings APRN, BETO [address] [place] [address] Nurse Practitioner Neurosurgery 07/11/22 documented as of this encounter
--- OUTSIDE RECORDS SUMMARY | 2025-02-03 09:48 | XMS_ITS | Encounter Summary ---
Author Organization Healthcare Address [address] [place] [address] Care Team Providers Care Management Liaison Name Role Phone Mir Javier MD Primary Care Provider [phone] Inocencia Hastings FRUIT HARVESTER MACHINE OPERATOR, DNP Unavailable [phone] Ly Morales FRUIT HARVESTER MACHINE OPERATOR Primary Care Provider [phone] Encounter Details Date Type Department Care Team (Late st Contact Info) Description 06/24/2022 Orders Only External Location [address] [place] [address] Dimple Soliz, FRUIT HARVESTER MACHINE OPERATOR [address] [facility] [address] [facility] [address] [place] [address] Social History Tobacco Use Types Packs/Day Years [...] Description 03/13/2025 9:00 AM EDT Office Visit [place] [facility] [address] [place] [address] Helene Pal, FRUIT HARVESTER MACHINE OPERATOR, DNP [address] [place] [address] documented as of this encounter Procedures Procedure Name Priority Date/Time Associated Diagnosis Comments US OUTSIDE IMAGES 06/24/2022 1:57 PM EST documented in this encounter Results * US OUTSIDE IMAGES (06/24/2022 1:57 PM EST) Anatomical Region Laterality Modality Ultrasound 06/24/2022 1:57 PM EST us Dimple Soliz FRUIT HARVESTER MACHINE OPERATOR IMG US PROCEDURES Elicia l Result documented in this encounter Visit Diagnoses Not on filedocumented in this encounter Additional Health Concerns Assessment Noted Time A fall risk assessment has been complete d for the patient 12/12/2021 2:44 PM EDT documented as of this encounter Care Teams Management Liaison Relationship Specialty Start Date End Date Mir Javier MD [address] [place] [address] PCP - General 12/21/20 12/28/22 Ly Morales APRN [address] [place] [address] PCP - General 12/29/22 Inocencia Hastings APRN, BETO [address] [place] [address] Nurse Practitioner Neurosurgery 07/11/22 documented as of this encounter
--- OUTSIDE RECORDS SUMMARY | 2025-02-03 09:49 | XMS_ITS | Data Portability ---
Author Organization [facility] [employer]ra ADMIN Address [address] [place] [id number] Care Team Providers Care Banquet Set Up Person Name Role Phone LY CASTELLANO Primary Care Provider [phone] Assessment Encounter Date Assessment Date Assessment LastModified by Organization Details LastModified Time 03/16/2023 03/16/2023 37-year-old male with: 1) Dysphagia: Previously improved with empiric dilation. He is having recent worsening of dysphagia. Will schedule repeat EGD. Continue PPI. 2) GERD: Symptoms improved. Continue Pantoprazole 40 mg p.o. BID. He may decrease use of Pepcid to PRN at this point. 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 He also had positive smooth muscle antibody and HARMEET previously. Liver biopsy 08/2022 mostly c/w hepatic steatosis with minimal fibrosis. -Will obtain labs from recent [facility] ER visit. -He is immune to hepatitis A & B. - Avoid NSAIDs and alcohol. - Do not take over 2 g of acetaminophen daily. - Discussed weight loss and healthy diet. -Patient advised to not smoke. 4) Constipation: Start Miralax once daily. 5) Nausea: Suspect related to constipation. [email or web address] Not available 03/16/2023 23:23:27 Plan of Treatment Reminders Order Date Submit Date Provider Last Modified By Organization Details Last Modified Time Details Appointments None recorded. Lab PT/INR [facility] [address] [facility] [place] [address] (Registration ), [address], [place], [address], 08:36:09 hemochroma tosis mutation (hfe), blood/tiss ue [address] (Registration ), [address], [place], [address], 08:36:09 alpha-1-an titrypsin (aat) phenotype, serum [address] (Registration ), [address], [place], [address], 08:36:09 alpha-1-an titrypsin (aat), QN, serum [address] (Registration ), [address], [place], [address], 08:36:09 ceruloplas min, serum 2021 [facility] (Registration ), [address], [place], [address], 17:11:36 igg, quantitati ve, serum 2021 [facility] (Registration ), [address], [place], [address], 17:11:37 liver-kidn ey microsome Ab, serum [address] (Registration ), [address] [facility], [place], [address], 08:36:09 liver fibrosis score panel, hepascore, serum or plasma [address] (Registration ), [address] [facility], [place], [address], 11/10/202 2 08:36:09 mitochondr ial Ab, serum 2021 [facility] (Registration ), [address] [place], [address], 17:11:33 actin smooth muscle Ab, serum 2021 [facility] (Registration ), [address] [place], [address], 15:10:31 hepatitis panel (A+B+C), acute, serum [address] (Registration ), [address] [place], [address], 2 08:36:09 hepatitis B surface Ab, qualitativ e, serum [address] (Registration ), [address] [place], [address], 08:36:10 CBC [address] (Registration ), [address] [place], [address], 08:36:10 CMP, serum or plasma 2021 [facility] (Registration ), [address] [place], [address], 2 02:13:34 hepatitis A Ab, total, serum [address] (Registration ), [address] [place], [address], 2 08:36:10 HARMEET (antinucle ar antibodies ) screen, serum 2021 [facility] (Registration ), [address], [place], [address], 2 17:10:12 Referral pulmonolog ist referral 2021 022 [email or web address] Aquiles Villanueva MD - Pulmonlogist, [address], [address], [place], [address], 2 08:49:48 Procedures None recorded. Surgeries biopsy, liver, ultrasound guided (SURG) [address] (Centralized Scheduling), [address], [place], [address], 2 12:24:18 Imaging PFT, plethysmog radha [address] (Centralized Scheduling), [address], [place], [address], 5 10:29:13 CT, chest, w/o contrast 2022 023 [facility] (Centralized Scheduling), [address], [place], [address], 3 15:42:05 PFT, plethysmog radha [email or web address] (Centralized Scheduling), [address], [place], [address], 3 13:51:51 XR, abdomen [address] (Registration ), [address], [place], [address], 2 08:35:58 US, liver [address] (Centralized Scheduling), [address], [place], [address], 2 08:35:57 Medication Orders pantoprazo le 40 mg tablet,del ayed release 2022 023 [facility], [address] [place] [address] [address] [place], [id number], 4 12:49:00 Miralax 17 gram/dose oral powder 2022 023 [facility], [address] [place] [address] [address], [place], [id number], 3 15:49:37 omeprazole 20 mg capsule,de layed release 2021 023 [facility], [address] [place] [address] [address] [place], [id number], 3 13:12:56 Patient TargetsNo targets recorded. Patient InstructionsNo instructions recorded. 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 1 low Not Available [facility] ([facility]) [address], [place], [address], 06/03/2022 16:28:48 06/03/20 22 06/03/2022 CBC AUTO NO DIFF (HEMO GRAM) HGB 13.9 gm/dL 13.5-1 8.0 Not Available [facility] ([facility]) [address], [place], [address], 06/03/2022 16:28:48 06/03/20 22 06/03/2022 CBC AUTO NO DIFF (HEMO GRAM) HCT 41.7 % 42.0-5 2.0 low Not Available [facility] ([facility]) [address], [place], [address], 06/03/2022 16:28:48 06/03/20 22 06/03/2022 CBC AUTO NO DIFF (HEMO GRAM) MCV 91.6 fL 78-100 Not Available [facility] ([facility]) [address] [facility], [place], [address], 06/03/2022 16:28:48 06/03/20 22 06/03/2022 CBC AUTO NO DIFF (HEMO GRAM) MCH 30.5 pg 27-31 Not Available [facility] ([facility]) [address] [facility], [place], [address], 06/03/2022 16:28:48 06/03/20 22 06/03/2022 CBC AUTO NO DIFF (HEMO GRAM) MCHC 33.3 g/dL 32-36 Not Available [facility] ([facility]) [address] [facility], [place], [address], 06/03/2022 16:28:48 06/03/20 22 06/03/2022 CBC AUTO NO DIFF (HEMO GRAM) RDW 13.3 % 11.5-1 4.0 Not Available [facility] ([facility]) [address] [facility], [place], [address], 06/03/2022 16:28:48 06/03/20 22 06/03/2022 CBC AUTO NO DIFF (HEMO GRAM) platelet count 243 K/uL 150-45 0 Not Available [facility] ([facility]) [address] , [place], [address], 06/03/2022 16:28:48 06/03/20 22 06/03/2022 CBC AUTO NO DIFF (HEMO GRAM) manual differential NO Not Available [facility] ([facility]) [address] , [place], [address], 06/03/2022 16:28:48 06/03/20 22 06/03/2022 PT (PROT HROMB IN TIME) W INR prothrombin time 10.4 secon ds 9.3-11 .4 Not Available [facility] ([facility]) [address] , [place], [address], 06/04/2022 02:12:42 06/03/20 22 06/03/2022 PT (PROT HROMB IN TIME) W INR INR 1.0 ratio 0.97-1 .05 INR is inten ded to be used ONLY for patie nts on stabl e oral antic oagul ant thera py. Thera peuti c Range s: 2.0-3 .0 Usual Thera peuti c Range 2.5-3 .5 For patie nts with histo ry of Multi ple Deep Vein Throm bus or Mecha nical Heart Valve s Not Available [facility] ([facility]) [address] , [place], [address], 06/04/2022 02:12:42 06/03/20 22 06/03/2022 COMP METAB OLIC PANEL sodium 138 mmol/ L 136-14 5 Not Available [facility] ([facility]) [address] [place], [address], 06/04/2022 02:13:33 06/03/20 22 06/03/2022 COMP METAB OLIC PANEL potassium 4.2 mmol/ L 3.6-5. 0 Not Available [facility] ([facility]) [address], [place], [address], 06/04/2022 02:13:33 06/03/20 22 06/03/2022 COMP METAB OLIC PANEL chloride 102 mmol/ L 98-107 Not Available [facility] ([facility]) [address] , [place], [address], 06/04/2022 02:13:33 06/03/20 22 06/03/2022 COMP METAB OLIC PANEL carbon dioxide 29.4 mmol/ L 21.0-3 2.0 Not Available [facility] ([facility]) [address] , [place], [address], 06/04/2022 02:13:33 06/03/20 22 06/03/2022 COMP METAB OLIC PANEL anion gap 10.8 Not Available [facility] ([facility]) [address] , [place], [address], 06/04/2022 02:13:33 06/03/20 22 06/03/2022 COMP METAB OLIC PANEL glucose 102 mg/dL 70-120 Not Available [facility] ([facility]) [address] , [place], [address], 06/04/2022 02:13:33 06/03/20 22 06/03/2022 COMP METAB OLIC PANEL BUN 16 mg/dL 7-18 Not Available [facility] ([facility]) [address] , [place], [address], 06/04/2022 02:13:33 06/03/20 22 06/03/2022 COMP METAB OLIC PANEL creatinine 1.0 mg/dL 0.6-1. 3 Not Available [facility] ([facility]) [address] , [place], [address], 06/04/2022 02:13:33 06/03/20 22 06/03/2022 COMP METAB OLIC PANEL glomerular filtration rate >60 mlper min 60- Not Available [facility] ([facility]) [address], [place], [address], 06/04/2022 02:13:33 06/03/20 22 06/03/2022 COMP METAB OLIC PANEL total protein 7.8 g/dL 6.4-8. 2 Not Available [facility] ([facility]) [address], [place], [address], 06/04/2022 02:13:33 06/03/20 22 06/03/2022 COMP METAB OLIC PANEL albumin 4.6 g/dL 3.4-5. 0 Not Available [facility] ([facility]) [address], [place], [address], 06/04/2022 02:13:33 06/03/20 22 06/03/2022 COMP METAB OLIC PANEL globulin 3.2 Not Available [facility] ([facility]) [address], [place], [address], 06/04/2022 02:13:33 06/03/20 22 06/03/2022 COMP METAB OLIC PANEL alb/glob ratio 1.4 0.7-2 Not Available [facility] ([facility]) [address], [place], [address], 06/04/2022 02:13:33 06/03/20 22 06/03/2022 COMP METAB OLIC PANEL calcium 8.6 mg/dL 8.5-10 .5 Not Available [facility] ([facility]) [address], [place], [address], 06/04/2022 02:13:33 06/03/20 22 06/03/2022 COMP METAB OLIC PANEL bilirubin total 0.38 mg/dL 0.10-1 .00 Not Available [facility] ([facility]) [address], [place], [address], 06/04/2022 02:13:33 06/03/20 06/03/2022 COMP METAB OLIC PANEL AST (SGOT) 26 U/L 0-37 Not Available [facility] ([facility]) [address] [facility], [place], [address], 06/04/2022 02:13:33 06/03/20 22 06/03/2022 COMP METAB OLIC PANEL ALT (SGPT) 74 U/L 0-65 high Not Available [facility] ([facility]) [address] [facility], [place], [address], 06/04/2022 02:13:33 06/03/2006/03/2022 COMP METAB OLIC PANEL alk phosphatase 84 U/L 46-116 Not Available [facility] ([facility]) [address] [facility], [place], [address], 06/04/2022 02:13:33 06/03/20 22 06/05/2022 HARMEET W/REF LUCY IF POSIT CARLOS antinuclear Ab, direct POSITI VE negati ve delta Not Available [facility] ([facility]) [address] [facility], [place], [address], 06/05/2022 17:10:12 06/03/20 22 06/05/2022 HARMEET W/REF LUCY IF POSIT CARLOS anti-ds DNA Ab <1 IU/mL 0-9 Negat carlos <5 Equiv ocal 5 - 9 Posit carlos >9 Not Available [facility] ([facility]) [address] [facility], [place], [address], 06/05/2022 17:10:12 06/03/20 22 06/05/2022 HARMEET W/REF LUCY IF POSIT CARLOS food production associate Ab >8.0 ai 0.0-0. 9 high Not Available [facility] ([facility]) [address] [facility], [place], [address], 06/05/2022 17:10:12 06/03/20 22 06/05/2022 HARMEET W/REF LUCY IF POSIT CARLOS mccall Ab <0.2 ai 0.0-0. 9 Not Available [facility] ([facility]) [address] [facility], [place], [address], 06/05/2022 17:10:12 06/03/20 22 06/05/2022 HARMEET W/REF LUCY IF POSIT CARLOS antisclerode rma-70 Ab <0.2 ai 0.0-0. 9 Not Available [facility] ([facility]) [address] [place], [address], 06/05/2022 17:10:12 06/03/20 22 06/05/2022 HARMEET W/REF LUCY IF POSIT CARLOS sjogren's anti-ss-A <0.2 ai 0.0-0. 9 Not Available [facility] ([facility]) [address] [place], [address], 06/05/2022 17:10:12 06/03/20 22 06/05/2022 HARMEET W/REF LUCY IF POSIT CARLOS sjogren's anti-ss-B <0.2 ai 0.0-0. 9 Not Available [facility] ([facility]) [address] [facility], [place], [address], 06/05/2022 17:10:12 06/03/20 22 06/05/2022 HARMEET W/REF LUCY IF POSIT CARLOS antichromati n Ab <0.2 ai 0.0-0. 9 Not Available [facility] ([facility]) [address] [place], [address], 06/05/2022 17:10:12 06/03/20 22 06/05/2022 HARMEET W/REF LUCY IF POSIT CARLOS anti-eulalio-1 <0.2 ai 0.0-0. 9 Not Available [facility] ([facility]) [address] [place], [address], 06/05/2022 17:10:12 06/03/20 22 06/05/2022 HARMEET W/REF LUCY IF POSIT CARLOS anti-centrom ere B antibodies <0.2 ai 0.0-0. 9 Not Available [facility] ([facility]) [address], [place], [address], 06/05/2022 17:10:12 06/03/20 22 06/05/2022 HARMEET W/REF LUCY IF POSIT CARLOS see below: [facility] ----- ----- ----- ----- ----- ----- ----- ----- ----- ----- ----- ----- Condi tion Frequ ency ----- ----- ----- ----- - ----- ----- ----- ----- ---- ----- ---- Antin uclea r Antib noe, SLE, mixed conne ctive Direc t (HARMEET- D) tissu e disea ses ----- ----- ----- ----- - ----- ----- ----- ----- ---- ----- ---- dsDNA SLE 40 - 60% ----- ----- ----- ----- - ----- ----- ----- ----- ---- ----- ---- Chrom atin Drug induc ed SLE 90% SLE 48 - 97% ----- ----- ----- ----- - ----- ----- ----- ----- ---- ----- ---- SSA (Ro) SLE 25 - 35% Sjogr en's Syndr ome 40 - 70% Neona naveen Lupus 100% ----- ----- ----- ----- - ----- ----- ----- ----- ---- ----- ---- SSB (La) SLE 10% Sjogr en's Syndr ome 30% ----- ----- ----- ----- - ----- ----- ----- ----- --- ----- ---- Sm (anti -Timur h) SLE 15 - 30% ----- ----- ----- ----- - ----- ----- ----- ----- --- ----- ---- SENIOR PRODUCTION MANAGER Mixed Conne ctive Tissu e Disea se 95% (U1 nRNP, SLE 30 - 50% anti- ribon ucleo prote in) Polym yosit is and/o r Bulger tomyo sitis 20% ----- ----- ----- ----- - ----- ----- ----- ----- ---- ----- ---- Scl-7 0 (anti DNA Scler oderm a (diff use) 20 - 35% topoi maritza ase) Crest 13% ----- ----- ----- ----- - ----- ----- ----- ----- ---- ----- ---- Eulalio-1 Polym yosit is and/o r Bulger tomyo sitis 20 - 40% ----- ----- ----- ----- - ----- ----- ----- ----- ---- ----- ---- Centr omere B Scler oderm a - Crest varia nt 80% Perfo rmed at: [facility] [place] [address] [facility], [place] [address] Lab Direc tor: Roland ludwig PhD, Phone : [phone] Not Available [facility] ([facility]) [address] [facility], [place], [address], 06/05/2022 17:10:12 06/03/20 22 06/09/2022 ACTIN (SMOO TH MUSCL E) AB actin (smooth muscle) Ab 24 units 0-19 high Negat carlos 0 - 19 Weak posit carlos 20 - 30 Moder ate to stron g posit carlos >30 . Actin Antib odies are found in 52-85 % of patie nts with autoi mmune hepat itis or chron ic activ e hepat itis and in 22% of patie nts with prima ry bilia ry cirrh osis. Perfo rmed at: [facility] [place] [address] Lab Direc tor: Roland lduwig PhD, Phone : [phone] Not Available [facility] ([facility]) [address] [facility], [place], [address], 06/09/2022 15:10:31 06/03/20 22 06/17/2022 OLIVIA FIBRO SURE fibrosis score 0.06 0.00-0 .21 Not Available [facility] ([facility]) [address] [facility], [place], [address], 06/17/2022 17:11:29 06/03/20 22 06/17/2022 OLIVIA FIBRO SURE fibrosis stage Commen t F0 - No fibro sis Not Available [facility] ([facility]) [address] [place], [address], 06/17/2022 17:11:29 06/03/20 22 06/17/2022 OLIVIA FIBRO SURE steatosis score 0.81 0.00-0 .30 high Not Available [facility] ([facility]) [address] [facility], [place], [address], 06/17/2022 17:11:29 06/03/20 22 06/17/2022 OLIVIA FIBRO SURE steatosis grade Commen t S3 - Marke d or Sever e Steat osis Not Available [facility] ([facility]) [address] [facility], [place], [address], 06/17/2022 17:11:29 06/03/20 22 06/17/2022 OLIVIA FIBRO SURE olivia score 0.50 0.25 high Not Available [facility] ([facility]) [address] [facility], [place], [address], 06/17/2022 17:11:29 06/03/20 22 06/17/2022 OLIVIA FIBRO SURE olivia grade Commen t N1 - Borde rline or proba ble OLIVIA Not Available [facility] ([facility]) [address] [facility], [place], [address], 06/17/2022 17:11:29 06/03/20 22 06/17/2022 OLIVIA FIBRO SURE height 73 in Not Available [facility] ([facility]) [address] [place], [address], 06/17/2022 17:11:29 06/03/20 22 06/17/2022 OLIVIA FIBRO SURE weight 232 lbs Not Available [facility] ([facility]) [address] [place], [address], 06/17/2022 17:11:29 06/03/20 22 06/17/2022 OLIVIA FIBRO SURE alpha 2-macroglobu jim, qn 135 mg/dL 110-27 6 Not Available [facility] ([facility]) [address] [place], [address], 06/17/2022 17:11:29 06/03/20 22 06/17/2022 OLIVIA FIBRO SURE haptoglobin 214 mg/dL 17-317 Not Available [facility] ([facility]) [address] [place], [address], 06/17/2022 17:11:29 06/03/20 22 06/17/2022 OLIVIA FIBRO SURE apolipoprote in A-1 93 mg/dL 101-17 8 low Not Available [facility] ([facility]) [address] [place], [address], 06/17/2022 17:11:29 06/03/20 22 06/17/2022 OLIVIA FIBRO SURE bilirubin, total 0.2 mg/dL 0.0-1. 2 Not Available [facility] ([facility]) [address] [place], [address], 06/17/2022 17:11:29 06/03/20 22 06/17/2022 OLIVIA FIBRO SURE GGT 37 IU/L 0-65 Not Available [facility] ([facility]) [address] [place], [address], 06/17/2022 17:11:29 06/03/20 22 06/17/2022 OLIVIA FIBRO SURE ALT (SGPT) p5p 62 IU/L 0-55 high Not Available [facility] ([facility]) [address] [place], [address], 06/17/2022 17:11:29 06/03/20 22 06/17/2022 OLIVIA FIBRO SURE AST (SGOT) p5p 27 IU/L 0-40 Not Available [facility] ([facility]) [address] [place], [address], 06/17/2022 17:11:29 06/03/20 22 06/17/2022 OLIVIA FIBRO SURE cholesterol, total 176 mg/dL 100-19 9 Not Available [facility] ([facility]) [address] [place], [address], 06/17/2022 17:11:29 06/03/20 22 06/17/2022 OLIVIA FIBRO SURE glucose, serum 105 mg/dL 70-99 high Not Available [facility] ([facility]) [address] [place], [address], 06/17/2022 17:11:29 06/03/20 22 06/17/2022 OLIVIA FIBRO SURE triglyceride s 228 mg/dL 0-149 high Not Available [facility] ([facility]) [address], [place], [address], 06/17/2022 17:11:29 06/03/20 22 06/17/2022 OLIVIA FIBRO SURE interpretati ons: Commen t . Quant itati ve resul ts of 10 bioch emica ls in combi natio n with age, gende r, heigh t, and weigh t, are josh zed using a compu tatio nal algor ithm to provi de a quant itati ve surro gate marke r (0.0- 1.0) of liver fibro sis ([place] vir F0-F4 ), hepat ic steat osis (0.0- 1.0, S0-S3 ), and Non-A lcoho lic Steat o- Hepat itis (OLIVIA ) (0.0- 0.75, N0-N2 ). The absen ce of steat osis (S<0. 38) precl udes the diagn osis of OLIVIA. . Fibro sis marke r: In a study of 171 Non-A lcoho lic Fatty Liver Disea se (NAFL D) patie nts where 23% had signi fican t NAFLD fibro sis ([place] vir F2-F4 ) and 11% had cirrh osis by liver biops y, a fibro sis resul t of >0.3 yield ed a sensi tivit y of 83% and a speci ficit y of 78% for the detec tion of signi fican t fibro sis(1 ). . Steat osis Marke r: In a popul ation of 744 patie nts (583 HCV, 18 HBV, 69 NAFLD , and 74 alcoh olic disea se patie nts), where 36% had signi fican t steat osis (>5%) on a liver biops y, a steat osis score >0.5 had a sensi tivit y of 71% and a speci ficit y of 72% for ident ifica tion of signi fican t steat osis( 2). . OLIVIA marke r: In a popul ation of 257 NAFLD patie nts, where 62% had at least some OLIVIA by liver biops y, a predi ction of OLIVIA had a sensi tivit y of 88% for ident ifyin g OLIVIA and a speci ficit y of 50%(3 ). . Not Available [facility] ([facility]) [address] , [place], [address], 06/17/2022 17:11:29 06/03/20 22 06/17/2022 OLIVIA FIBRO SURE fibrosis scoring: Commen t . <=0.2 1 = Stage F0 - No fibro sis 0.21 - 0.27 = Stage F0 - F1 0.27 - 0.31 = Stage F1 - Tracie l fibro sis 0.31 - 0.48 = Stage F1 - F2 0.48 - 0.58 = Stage F2 - Bridg ing fibro sis with few septa 0.58 - 0.72 = Stage F3 - Bridg ing fibro sis with many septa 0.72 - 0.74 = Stage F3 - F4 >0.74 = Stage F4 - Cirrh osis Not Available [facility] ([facility]) [address] , [place], [address], 06/17/2022 17:11:29 06/03/20 22 06/17/2022 OLIVIA FIBRO SURE steatosis grading Commen t . < 0.30 = S0 - No Steat osis 0.30 to 0.38 = S0 - S1 0.38 to 0.48 = S1 - Minim al Steat osis 0.48 to 0.57 = S1 - S2 0.57 to 0.67 = S2 - Moder ate Steat osis 0.67 to 0.69 = S2 - S3 > 0.69 = S3 - Marke d or Sever e Steat osis Not Available [facility] ([facility]) [address] , [place], [address], 06/17/2022 17:11:29 06/03/20 22 06/17/2022 OLIVIA FIBRO SURE olivia scoring Commen t . 0.25 = N0 - Not OLIVIA 0.50 = N1 - Borde rline or proba ble OLIVIA 0.75 = N2 - OLIVIA Not Available [facility] ([facility]) [address], [place], [address], 06/17/2022 17:11:29 06/03/20 22 06/17/2022 OLIVIA FIBRO SURE limitations Commen t . OLIVIA Fibro Sure is recom keanu d for patie nts with suspe cted non-a lcoho lic fatty liver disea se. It is not recom keanu d for patie nts with other liver disea ses. It is also not recom keanu d in patie nts with Gilbe rt Disea se, acute hemol ysis, acute viral hepat itis, drug induc ed hepat itis, anastasiia ic liver disea se, autoi mmune hepat itis and/o r extra - hepat ic adwoa stasi s. Any of these clini maryam situa tions may lead to inacc urate quant itati ve predi ction s of fibro sis. Not Available [facility] ([facility]) [address], [place], [address], 06/17/2022 17:11:29 06/03/20 22 06/17/2022 OLIVIA FIBRO SURE comment: Commen t . This test was devel oped and its perfo rmanc e sindhu cteri stics deter mined by [employer]. It has not been clear ed or appro tatiana by the Food and Drug Admin istra tion. The FDA has deter mined that such clear ance or appro melody is not neces ino. . For quest ions regar ding this repor t pleas e conta ct custo dwayne servi ce at [phone]. . Refer ences : . 1. Vivian griggs V. et al. Diagn ostic Value of Bioch emica l Marke rs (Fibr oTest ) for the predi ction of Liver Fibro sis in patie nts with Non-A lcoho lic Fatty Liver Disea se. [facility] 2006; 6:6. 2. Jing lara, T. et al. The Diagn ostic Value of Bioma rkers (Stea to Test) for the Predi ction of Liver Steat osis. Anirudh rativ e Hepat ol. 2005; 4:10. 3. Jing lara, T, Vivian u, Nayeli gutierrez F, et al. Diagn ostic value of bioch emica l marke rs (OLIVIA TEST) for the predi ction of non alcoh ol steat o hepat itis in patie nts with non- alcoh olic fatty liver disea se. [facility] 2006; 6:34 doi:1 0.118 6/147 1-230 X-6-3 4. Perfo rmed at: BN - [facility] [place] [address] [facility] , [place] [address] 1799 Lab Direc tor: Chela conley MD, Phone : [phone] Not Available [facility] ([facility]) [address], [place], [address], 06/17/2022 17:11:29 06/03/20 22 06/17/2022 A1A DEFIC ENCY PROFI LE aat, DNA analysis Commen t c.109 6 G>A (p.Gl u366L ys), Z allel e - Detec rianna, heter ozygo us c.863 A>T (p.Gl u288V al), S allel e - Not detec rianna. Indiv idual s with this resul t may have decre ased alpha -1 antit rypsi n level s and an incre ased risk for sympt oms in the prese nce of envir onmen naveen facto rs such as smoki ng and alcoh ol. See addit ional Clini maryam infor matio n and Comme nts. Not Available [facility] ([facility]) [address], [place], [address], 06/17/2022 17:11:30 06/03/20 22 06/17/2022 A1A DEFIC ENCY PROFI LE additional information: Commen t . Addit ional Clini maryam Infor matio n: Alpha -1 antit rypsi n defic iency is an autos omal reces sive metab olic disor dana with varia ble sever ity and age at onset . Signs and sympt oms may inclu de incre ased risk for chron ic obstr uctiv e lung disea se that typic ally manif ests after age 30, liver disea se, and liver cance r. Liver disea se can be prese nt in infan cy as neona naveen adwoa stasi s (christine dice) or in adult love as cirrh osis and fibro sis. Lung and liver disea se may be accel erate d by envir onmen naveen expos ures such as smoki ng and exces sive alcoh ol use. Estab lishe d treat ments for COPD and emphy sema are used to treat lung disea se; lung and/o r liver trans plant ation may be an optio n for those with with sever e disea se. Intra venou s augme ntati on thera py may be avail able for patie nts who meet crite leatha. . Comme nts: The ZZ and SZ genot ypes accou nt for more than 95% of indiv idual s with sever e alpha -1 antit rypsi n defic iency . To rule out other varia nts, furth er testi ng of sympt omati c indiv idual s heter ozygo us for one varia nt (S or Z) or with negat carlos resul ts may inclu de pheno typin g (PI typin g), AAT level testi ng, and/o r expan ded genot yping . . Anastasiia ic couns merced is recom keanu d to discu ss the poten tial clini maryam impli catio ns of posit carlos resul ts, as well as recom menda tions for testi ng famil y membe rs. Anastasiia ic Coord inato rs are avail able for healt h care provi ders to discu ss resul ts at [phone] ([phone] ). . Test Detai ls: Two varia nts josh zed: c.109 6 G>A (p.Gl u366L ys), commo nly refer red to as the Z allel e or PI*Z c.863 A>T (p.Gl u288V al), commo nly refer red to as the S allel e or PI*S . Metho ds/Li mitat ions: DNA josh sis of the S and Z allel es in the SERPI NA1 gene (NM_[id number]) was perfo rmed by multi plex allel e-spe cific PCR ampli ficat ion follo wed by gel elect ropho resis . Resul ts must be combi jerad with clini maryam infor matio n for the most accur ate inter preta tion. Molec ular- based testi ng is highl y accur ate, but as in any labor atory test, rare diagn ostic error s may occur . False posit carlos or false negat carlos resul ts may occur for reaso ns that inclu de anastasiia ic varia nts, blood trans fusio ns, bone marro w trans plant ation , somat ic or tissu e-spe cific mosai cism, misla beled sampl es, or clemente eous repre senta tion of famil y relat ionsh ips. . This test was devel oped and its perfo rmanc e sindhu cteri stics deter mined by [facility]. It has not been clear ed or appro tatiana by the Food and Drug Admin istra tion. . Refer ences : Ana arellano RA, Nae arias G, Juwan go ML, Alejandrina live M, Justin CE, Pamela moran K, Mary liriano DK, Kiara bailey SL, Slick live JM, Ashley COBB, Emanuel Ramos, rByanna Ray. The Diagn osis and Manag ement of Alpha -1 Antit rypsi n Defic iency in the Adult . Chron ic Obstr Pulm Dis. 2016 Jan 13;3(3 ):668 -682. doi: 10.15 326/j copdf .3.3. 2014. 0182. PMID: 94874 891; PMCID : PMC55 97269 . Ashley COBB, Jose landry V, Grey PONCE. Alpha -1 Antit rypsi n Defic iency . 2005Jun 05 Updat ed 2019December 28 . In: Nba CASON, Jose salazar HH, Nicholas RANDHAWA, et al., frandy rs. GeneR eview s(R) Inter net . Lo vasquez (SARA): [employer] of [place]; 1992- 2020. Avail able from: https ://ww w.ncb i.nlm .nih. gov/b ooks/ NBK15 19/ Not Available [facility] ([facility]) [address] [facility], [place], [address], 06/17/2022 17:11:30 06/03/20 22 06/17/2022 A1A DEFIC ENCY PROFI LE electronical ly signed by: Blu whitehead, PhD, [facility] Not Available [facility] ([facility]) [address] [facility], [place], [address], 06/17/2022 17:11:30 06/03/20 22 06/17/2022 A1A DEFIC ENCY PROFI LE a1a rfx to phenotype Blu bailey A1A Pheno type is indic ated for this speci men. Perfo rmed at: [facility] - [facility] [place] [address] [facility] [place] [address] 2829 Lab Direc tor: Chela conley MD, Phone : [phone] Perfo rmed at: TG [facility] [address] [place] [address] 5500 Lab Direc tor: Koffi Byrd [facility] , Phone : [phone] Not Available [facility] ([facility]) [address] [facility], [place], [address], 06/17/2022 17:11:30 06/03/20 22 06/17/2022 A1A DEFIC ENCY PROFI LE [id number]-[id number]-vdko trypsin,seru m 71 mg/dL 95-164 low Not Available [facility] ([facility]) [address] [facility], [place], [address], 06/17/2022 17:11:30 06/03/20 22 06/17/2022 A1A DEFIC ENCY PROFI LE aat, DNA analysis Blu bailey c.109 6 G>A (p.Gl u366L ys), Z allel e - Detec rianna, heter ozygo us c.863 A>T (p.Gl u288V al), S allel e - Not detec rianna. Indiv idual s with this resul t may have decre ased alpha -1 antit rypsi n level s and an incre ased risk for sympt oms in the prese nce of envir onmen naveen facto rs such as smoki ng and alcoh ol. See addit ional Clini maryam infor matio n and Comme nts. Not Available [facility] ([facility]) [address], [place], [address], 06/17/2022 17:11:31 06/03/20 22 06/17/2022 A1A DEFIC ENCY PROFI LE additional information: Commen t . Addit ional Clini maryam Infor matio n: Alpha -1 antit rypsi n defic iency is an autos omal reces sive metab olic disor dana with varia ble sever ity and age at onset . Signs and sympt oms may inclu de incre ased risk for chron ic obstr uctiv e lung disea se that typic ally manif ests after age 30, liver disea se, and liver cance r. Liver disea se can be prese nt in infan cy as neona naveen adwoa stasi s (christine dice) or in adult love as cirrh osis and fibro sis. Lung and liver disea se may be accel erate d by envir onmen naveen expos ures such as smoki ng and exces sive alcoh ol use. Estab lishe d treat ments for COPD and emphy sema are used to treat lung disea se; lung and/o r liver trans plant ation may be an optio n for those with with sever e disea se. Intra venou s augme ntati on thera py may be avail able for patie nts who meet crite leatha. . Comme nts: The ZZ and SZ genot ypes accou nt for more than 95% of indiv idual s with sever e alpha -1 antit rypsi n defic iency . To rule out other varia nts, furth er testi ng of sympt omati c indiv idual s heter ozygo us for one varia nt (S or Z) or with negat carlos resul ts may inclu de pheno typin g (PI typin g), AAT level testi ng, and/o r expan ded genot yping . . Anastasiia ic couns merced is recom keanu d to discu ss the poten tial clini maryam impli catio ns of posit carlos resul ts, as well as recom menda tions for testi ng famil y membe rs. Anastasiia ic Coord inato rs are avail able for healt h care provi ders to discu ss resul ts at [phone] ([phone] ). . Test Detai ls: Two varia nts josh zed: c.109 6 G>A (p.Gl u366L ys), commo nly refer red to as the Z allel e or PI*Z c.863 A>T (p.Gl u288V al), commo nly refer red to as the S allel e or PI*S . Metho ds/Li mitat ions: DNA josh sis of the S and Z allel es in the SERPI NA1 gene ([id number]) was perfo rmed by multi plex allel e-spe cific PCR ampli ficat ion follo wed by gel elect ropho resis . Resul ts must be combi jerad with clini maryam infor matio n for the most accur ate inter preta tion. Molec ular- based testi ng is highl y accur ate, but as in any labor atory test, rare diagn ostic error s may occur . False posit carlos or false negat carlos resul ts may occur for reaso ns that inclu de anastasiia ic varia nts, blood trans fusio ns, bone marro w trans plant ation , somat ic or tissu e-spe cific mosai cism, misla beled sampl es, or clemente eous repre senta tion of famil y relat ionsh ips. . This test was devel oped and its perfo rmanc e sindhu cteri stics deter mined by [facility]. It has not been clear ed or appro tatiana by the Food and Drug Admin istra tion. . Refer ences : Ana arellano RA, Nae arias G, Juwan go ML, Alejandrina Richter, Justin CE, Pamela moran K, Mary liriano DK, Kiara t SL, Slick s JM, Ashley COBB, Emanuel monsalve C, Bryanna Ray. The Diagn osis and Manag ement of Alpha -1 Antit rypsi n Defic iency in the Adult . Chron ic Obstr Pulm Dis. 2016 Jan 13;3(3 ):668 -682. doi: 10.15 326/j copdf .3.. 2014. 0182. PMID: 05590 891; PMCID : PMC55 52445 . Ashley COBB, Jose landry V, Grey PONCE. Alpha -1 Antit rypsi n Defic iency . 2005Jun 05 Updat ed 2019December 28 . In: Nba MP, Jose salazar HH, Nicholas RA, et al., frandy rs. GeneR gladis s(R) Inter net . Seatlynn vasquez (SARA): [facility] of [place]; 1992- 2020. Avail able from: https ://gold conrad.ncb i.nlm .nih. gov/b ooks/ NBK15 19/ Not Available [facility] ([facility]) [address] [facility], [place], [address], 06/17/2022 17:11:31 06/03/20 22 06/17/2022 A1A DEFIC ENCY PROFI LE electronical ly signed by: Blu whitehead, PhD, [employer] Not Available [facility] ([facility]) [address] [facility], [place], [address], 06/17/2022 17:11:31 06/03/20 22 06/17/2022 A1A DEFIC ENCY PROFI LE a1a phenotype confirmation MZ Not Available [facility] ([facility]) [address] [facility], [place], [address], 06/17/2022 17:11:31 06/03/20 22 06/17/2022 A1A DEFIC ENCY PROFI LE a1a interpertati on Blu bailey Pheno type testi eze, using Isoel ectri c focus ing (IEF) metho dol ogy, shows confi rmati on of the A-1-A DNA Genot ype test resul t. Perfo rmed at: - [facility] [place] [address] [id number] 2594 Lab Direc tor: Chela conley MD, Phone : [phone] Not Available [facility] ([facility]) [address] [facility], [place], [address], 06/17/2022 17:11:31 06/03/20 22 06/17/2022 A1A DEFIC ENCY PROFI LE a1a rfx to phenotype Commen t A1A Pheno type is indic ated for this speci men. Perfo rmed at: BN - [facility] [place] [address] [place] [address] 4181 Lab Direc tor: Chela conley MD, Phone : [phone] Perfo rmed at: - [facility] [address] [place] [address] 0150 Lab Direc tor: Kfofi Byrd [facility] , Phone : [phone] Not Available [facility] ([facility]) [address] [facility], [place], [address], 06/17/2022 17:11:31 06/03/20 22 06/17/2022 A1A DEFIC ENCY PROFI LE yxkvz-5-asal trypsin,seru m 71 mg/dL 95-164 low Not Available [facility] ([facility]) [address] [facility], [place], [address], 06/17/2022 17:11:31 06/03/20 22 06/17/2022 HEP B S AB PERRY hep B surface Ab 27.3 mIU/m L immuni ty>9.9 Statu s of Immun ity Anti- HBs Level ----- ----- ----- --- ----- ----- ---- Incon siste nt with Immun ity 0.0 - 9.9 Consi stent with Immun ity >9.9 Perfo rmed at: [facility] [address] [facility], [place] [address] 1269 Lab Direc tor: Roland ludwig PhD, Phone : [phone] Not Available [facility] ([facility]) [address] [facility], [place], [address], 06/17/2022 17:11:32 06/03/20 22 06/17/2022 MITOC HONDR IAL ANTIB ODIES mitochondria l (M2) Ab <20.0 units 0.0-20 .0 Negat carlos 0.0 - 20.0 Equiv ocal 20.1 - 24.9 Posit carlos >24.9 . Mitoc hondr ial (M2) Antib odies are found in 90-96 % of patie nts with prima ry bilia ry cirrh osis. Perfo rmed at: [facility] [address] [facility], [place] [address] 1266 Lab Direc tor: Roland ludwig PhD, Phone : [phone] Not Available [facility] ([facility]) [address] [facility], [place], [address], 06/17/2022 17:11:33 06/03/20 22 06/17/2022 LIVER -KIDN EY MICRO AB liver-kidney microsomal Ab 1.6 units 0.0-20 .0 Negat carlos 0.0 - 20.0 Equiv ocal 20.1 - 24.9 Posit carlos >24.9 . LKM type 1 antib odies are detec rianna in patie nts with autoi mmune hepat itis type 2 and in up to 8% of patie nts with chron ic HCV infec tion. Perfo rmed at: [facility] [address] [facility], [place] [address] 1261 Lab Direc tor: Roland ludwig PhD, Phone : [phone] Not Available [facility] ([facility]) [address] [facility], [place], [address], 06/17/2022 17:11:34 06/03/20 22 06/17/2022 HERED ITARY HEMOC HROMA TOSIS hereditary hemochromati osis Commen t Resul ts: c.845 G>A (p.Cy s282T yr) - Not Detec rianna c.187 C>G (p.Hi s63As p) - Detec rianna, heter ozygo us c.193 A>T (p.Se r65Cy s) - Not Detec rianna Not assoc iated with incre ased risk to devel op clini maryam sympt oms of Hered itary Hemoc hroma tosis . In sympt omati c indiv idual s, other cause s of iron overl oad shoul d be evalu ated. See Addit ional Infor matio n and Comme nts. . Addit ional Clini maryam Infor matio n: Hered itary hemoc hroma tosis (HFE relat ed) is an autos omal reces sive iron stora ge disor dana. Patie nts may have a anastasiia ic diagn osis of hered itary hemoc hroma tosis and never show clini maryam sympt oms. Clini maryam sympt oms typic ally appea r betwe en 40 to 60 years in males and after menop ause in femal es. Signs and sympt oms may inclu de organ damag e, prima rily in the liver , risk for hepat ocell ular carci noma, diabe felecia, and heart disea se due to iron accum ulati on. Life expec tancy may be decre ased in indiv idual s who devel op cirrh osis. Treat ment for clini cabrera sympt omati c indiv idual s may inclu de thera peuti c phleb otomy . Liver trans plant may be used to treat end stage liver failu re. For preve ntive care, monit oring for iron overl oad is recom keanu d for patie nts who are homoz ygous for c.845 G>A (p.Cy s282T yr) and have yet to exper ience clini maryam sympt oms. . Comme nts: The most commo n HFE varia nts assoc iated with hered itary hemoc hroma tosis are c.845 G>A (p.Cy s282T yr), c.187 C>G (p.Hi s63As p), c.193 A>T (p.Se r65Cy s). While patie nts homoz ygous for c.845 G>A (p.Cy s282T yr) are the most likel y to prese nt clini maryam sympt oms, less than 10% devel op clini cabrera signi fican t iron overl oad with tissu e and organ damag e. . Anastasiia ic couns eling is recom keanu d to discu ss the poten tial clini maryam impli catio ns of posit carlos resul ts, as well as recom menda tions for testi ng famil y membe rs. Anastasiia ic Coord inato rs are avail able for healt h care provi ders to discu ss resul ts at [phone] GENE ([phone] ). . Test Detai ls: Three varia nts josh zed: c.845 G>A (p.Cy s282T yr), commo nly refer red to as C282Y c.187 C>G (p.Hi s63As p), commo nly refer red to as H63D c.193 A>T (p.Se r65Cy s), commo nly refer red to as S65C . Metho ds/Li mitat ions: DNA Josh sis of the HFE gene ([id number]) was perfo rmed by PCR ampli ficat ion follo wed by restr ictio n enzym e diges tion josh ses. Resul ts must be combi jerad with clini maryam infor matio n for the most accur ate inter preta tion. Molec ular- based testi ng is highl y accur ate, but as in any labor atory test, diagn ostic error s may occur . False posit carlos or false negat carlos resul ts may occur for reaso ns that inclu de anastasiia ic varia nts, blood trans fusio ns, bone marro w trans plant ation , somat ic or tissu e-spe cific mosai cism, misla beled sampl es, or clemente eous repre senta tion of famil y relat ionsh ips. This test was devel oped and its perfo rmanc e sindhu cteri stics deter mined by [facility]. It has not been clear ed or appro tatiana by the Food and Drug Admin istra tion. . Refer ences : Dejuan BR, Elias PC, Kodinal ey [place], Haris dominique LW, Nikita dominique ; Ameri can Assoc iatio n for the Study of Liver Disea ses. Diagn osis and manag ement of hemoc hroma tosis : 2010 pract ice guide line by the Ameri can Assoc iatio n for the Study of Liver Disea ses. Hepat ology . 2010; 4(1): 328-4 3. doi: 10.10 /lucien p.243 30. PMID: 24161 290; PMCID : PMC31 60246 . Devan G, Godfrey vines P, Kathya moura DW, Pritesh r H, Braxton correa O, Lita silver S, Kayode o I, Brent s M, Cl caba S. EMQN best pract ice guide lines for the molec ular anastasiia ic diagn osis of hered itary hemoc hroma tosis (HH). Eur J Hum Anastasiia . 2016 Nov;2 4(4): 479-9 5. doi: 10.10 /ej hg.20 15.12 8. Epub 2014 8. PMID: 43707 218; PMCID : PMC49 34343 . . Sapphire silver, PhD, [employer]AC[employer] Sanjay Pa , PhD Roderick patel, PhD, [employer] Steve whitehead, PhD, [employer] Shar sifuentes, PhD, [employer] W Arben Nova, PhD, [employer] Myesha Spencer, PhD, [employer] Harjit live, PhD, FACMG Perfo rmed at: TG - [facility] [address] [facility] , [facility] [place] [address] 3512 Lab Direc tor: Koffi Rochelle [facility] , Phone : [phone] Not Available [facility] ([facility]) [address], [place], [address], 06/17/2022 17:11:35 06/03/20 22 06/17/2022 CERUL OPLAS MIN ceruloplasmi n 21.9 mg/dL 16.0-3 1.0 Perfo rmed at: - [facility] [address] [place] [address] 1269 Lab Direc tor: Roland ludwig PhD, Phone : [phone] Not Available [facility] ([facility]) [address] [place], [address], 06/17/2022 17:11:36 06/03/20 22 06/17/2022 IGG IgG 776 mg/dL 603-16 13 Perfo rmed at: [facility] [address] [place] [address] 1269 Lab Direc tor: Roland ludwig PhD, Phone : [phone] Not Available [facility] ([facility]) [address] [place], [address], 06/17/2022 17:11:37 06/03/20 22 06/17/2022 HEP A AB, TOTAL hep A Ab, total Positi ve negati ve delta Perfo rmed at: [facility] [address] [place] [address] 1261 Lab Direc tor: Roland ludwig PhD, Phone : [phone] Not Available [facility] ([facility]) [address] [facility], [place], [address], 06/17/2022 17:11:39 06/03/20 22 06/18/2022 ACUTE HEPAT ITIS PANEL hep A Ab, IgM Negati ve negati ve Not Available [facility] ([facility]) [address] [facility], [place], [address], 06/18/2022 15:15:27 06/03/20 22 06/18/2022 ACUTE HEPAT ITIS PANEL HBsAg screen Negati ve negati ve Not Available [facility] ([facility]) [address], [place], [address], 06/18/2022 15:15:27 06/03/20 22 06/18/2022 ACUTE HEPAT ITIS PANEL HBsAg confirmation TNP TEST NOT PERFO RMED Not Available [facility] ([facility]) [address] [facility], [place], [address], 06/18/2022 15:15:27 06/03/20 22 06/18/2022 ACUTE HEPAT ITIS PANEL hep B core Ab, IgM NEGATI VE negati ve Not Available [facility] ([facility]) [address] [facility], [place], [address], 06/18/2022 15:15:27 06/03/20 22 06/18/2022 ACUTE HEPAT ITIS PANEL HCV Ab <0.1 s/co_ ratio 0.0-0. 9 Not Available [facility] ([facility]) [address] [facility], [place], [address], 06/18/2022 15:15:27 10/14/19 23 10/13/2022 ACCUL A SARSC OV2 PCR accula sarscov2 PCR NEGATI VE negati ve FOR USE UNDER THE EMERG ENCY USE AUTHO RIZAT ION (EUA) ONLY BY THE FDA. TEST RESUL TS SHOUL D BE INTER PRETE D IN CONJU NCTIO N WITH THE PATIE NT'S MEDIC AL HISTO RY, CLINI MARYAM SIGNS , SYMPT OMS, AND THE RESUL TS OF OTHER DIAGN OSTIC TESTS PERFO RMED. NEGAT CARLOS RESUL TS DO NOT RULE OUT SARS- CoV-2 INFEC TIONS AND SHOUL D NOT BE USED THE SOLE BASIS FOR PATIE NT MANAG EMENT DECIS IONS. NEGAT CARLOS RESUL TS MUST BE COMBI JERAD WITH CLINI MARYAM OBSER VATIO NS, PATIE NT HISTO RY, AND EPIDE MIOLO GICAL INFOR MATIO N. POSIT CARLOS RESUL TS ARE INDIC ATIVE OF THE PRESE NCE OF SARSC oV-2 RNA; CLINI MARYAM CORRE LATIO N WITH PATIE NT HISTO RY AND OTHER DIAGN OSTIC INFOR MATIO N IS NECES INO TO DETER MINE PATIE NT INFEC TION STATU S. POSIT CARLOS RESUL TS DO NOT RULE OUT BACTE RIAL INFEC TION OR CO-IN FECTI ON WITH OTHER VIRUS ES.TH E SARSC oV-2 RNA IS GENER ALLY DETEC TABLE IN UPPER RESPI RATOR Y SPECI MENS DURIN G THE ACUTE PHASE OF INFEC TION SARS- CoV-2 RNA (RT-P CR, NAAT) Not Available [facility] ([facility]) [address] [facility], [place], [address], 10/13/2022 15:12:31 10/14/19 23 10/13/2022 ACCUL A SARSC OV2 PCR sars2 accula lot # [id number] Not Available [facility] ([facility]) [address] [facility], [place], [address], 10/13/2022 15:12:31 10/14/19 23 10/13/2022 ACCUL A SARSC OV2 PCR sars2 accula expiration date 2022 Not Available [facility] ([facility]) [address] [facility], [place], [address], 10/13/2022 15:12:31 10/14/19 23 10/13/2022 ACCUL A SARSC OV2 PCR internal control accula sars2 OK positi ve Not Available [facility] ([facility]) [address] [facility], [place], [address], 10/13/2022 15:12:31 06/04/20 22 06/03/2022 XR, abdom en, 1 view [facility] [address] [place] [address] Phone: Fax: Name: BILL BENÍTEZ Exam Date: 2021 : [birth year] Age 36 Gender : M Access ion: [id number] Physic joe: MARLON PINTO Facili ty: [facility] Fac[place] HSV: Outpat ient Exam: ABD KUB 1V Abdome n Histor y: Interm ittent consti pation and diarrh ea Findin gs: Single view the abdome n was obtain ed. There is a nonspe cific bowel gas patter n. Mild retain ed stool is identi fied in the colon. Calcif icatio ns within the left upper quadra nt likely repres ent calcif ied granul omas in the spleen . No convin cing renal or ureter al stone is identi fied. Genera tor device overli es the right flank with spinal stimul ator leads in place. Impres maria r: Nonspe cific bowel gas patter n. Mild retain ed stool. Images review ed, interp reted and dictat ed by Dr. Zacarias. Transc ribed by Vic Fontaine PA-C Dictat ed By: DANN ZACARIAS Transc ribed By: Dann Zacarias Transc ribed On: 2021 4:21 PM Electr onical ly signed by: DANN ZACARIAS 2021 Thank you for referr nacho BETTS VIVEKBILL to [facility]. Legall y authen ticate d by POPE DANN Ramos 2021-08 16:21: 46 CC'ed Logic: Orderi ng Provid er: NAKITA MASON Attend ing Provid er: NAKITA MASON Referr ing Provid er: NAKITA MASON Admitt ing Provid er: NAKITA MASON [facility] - Physical Therapy [address] [place] [address], [place], [address], 06/05/2022 07:15:30 06/20/20 22 06/20/2022 US, liver [facility] [address] [place] [address] Phone: Fax: Name: BILL BENÍTEZ Exam Date: 2021 : [birth year] Age 36 Gender : M Access ion: [id number] Physic joe: NAKITA Dominique MARLON Facili ty: [facility] Facili ty HSV: Outpat ient Exam: LIVER ULTRAS OUND LIVER ULTRAS OUND Ultras ound images of right upper quadra nt were obtain ed. Limite d images of the pancre as are obscur ed by bowel gas. There is mild hepato megaly with diffus e steato sis. The gallbl adder is well-v isuali zed and the wall appear s normal . There are no gallst ones. The common duct is normal . Limite d images of right kidney are unrema rkable . IMPRES MARIA R: Mild hepato megaly with diffus e steato sis. Images review ed, interp reted, and dictat ed by Dr. Linda Cespedes . Transc ribed by Todd live PA-C Dictat ed By: Linda Oscar Transc ribed By: Linda Cespedes Transc ribed On: 2021 11:02 AM Electr onical ly signed by: Linda Oscar 2021 Thank you for referr BILL Calderon to [facility] al. Legall y authen ticate d by DEBORAH GARRETT 2021-08 11:02: 03 CC'ed Logic: Orderi ng Provid er: NAKITA MASON Attend ing Provid er: NAKITA MASON Referr ing Provid er: NAKITA Ulrich ing Provid er: NAKITA tineo[address] [place] [address] - Physical Therapy [address] [place] [address], [address], 06/20/2022 15:03:14 08/05/20 22 08/05/2022 CT [facility] [place] [address] Phone: Fax: Name: ROSITA BENÍTEZE Exam Date: 2021 : [birth year] Age 36 Gender : M Access ion: [id number] Physic joe: JOSE DANIELMIKAEL MARLON Dominique Facili ty: [facility] Facili ty HSV: Outpat ient Exam: CT BX OF LIVER- NEEDLE CT- GUIDED LIVER BIOPSY HISTOR Y: Elevat ed liver functi on tests. ATTEND ING PHYSIC JOE: Dr. Linda Cespedes PHYSIC JOE ASSIST ANT: Elvia Hollingsworth PA-C CONSCI OUS SEDATI ON: 1 mg of IV Versed and 25 mcg of fentan yl were admini stered . Contin uous vital sign monito ring was used. Nursin g staff was presen t during the sedati on proces s. Overal l sedati on time was 10 minute s. TECHNI QUE: Limite d noncon trast CT images were obtain ed of the liver. The approp riate site was locali zed for biopsy . The biopsy region was preppe d and routin e steril e fashio n and locall y anesth etized with 1% lidoca ine. A 17-gau ge guide needle was direct ed with images acquir ed into the inferi or right hepati c lobe . Using coaxia l techni que, 2 separa te 18-gau ge core biopsi es were obtain ed. Specim en was submit rianna in formal in for histop atholo gic evalua tion. Proced ure was well tolera rianna. Locali zation images demons trate mild cardio megaly . There is hepati c steato sis. A spinal cord stimul ator is identi fied. CONCLU MARIA R: 1. Succes sful CT guided liver biopsy . 2. Intrav enous consci ous sedati on used. The films were review ed, interp reted, and dictat ed by Dr. Linda Cespedes Transc ribed by Elvia Hollingsworth PA-C Dictat ed By: Linda Oscar Transc ribed By: Linda Cespedes Transc ribed On: 2021 9:57 AM Electr onical ly signed by: Linda Oscar 2021 [facility] Legall y authen ticate d by DEBORAH GARRETT 2021-08 09:57: 45 CC'ed Logic: Orderi ng Provid er: NAKITA MASON Attend ing Provid er: NAKITA MASON Referr ing Provid er: NAKITA MASON Admitt ing Provid er: NAKITA MASON [email or web address] - Physical Therapy [address] [facility], [place], [address], 08/05/2022 13:51:40 09/25/19 23 09/25/2022 XR, chest , 2 view [facility] Hospit [facility] [address] [facility] [place] [address] Phone: Fax: Name: BILL BENÍTEZ Exam Date: : [birth year] Age 36 Gender : M Access ion: [id number] Physic joe: AQUILES VILLANUEVA Facili ty: [facility] Facili ty HSV: Outpat ient Exam: CHEST 2 VIEWS 2 view chest Histor y: Cough Findin gs: 2 views. No prior exams. Heart and pulmon sarah vessel s are normal . Lung borden are well inflat ed. No infilt rates or effusi ons are presen t. The tips of neural stimul ator cathet ers termin ate at the approx imate T9 level. Impres maria r: No signif icant findin gs in the lung borden . Dictat ed By: LANG JOHN Transc ribed By: Krystal Bennett Transc ribed On: 023 1:02 PM Electr onical ly signed by: LANG JOHN 023 Thank you for referr nacho DOYLEBILL to [facility] Hospit [facility]. Legall y authen ticate d by YVETTE CROFT 09-25 13:16: 32 CC'ed Logic: Orderi ng Provid er: NOLA KWAN Attend ing Provid er: NOLA KWAN Referr ing Provid er: NOLA KWAN Admitt ing Provid er: [facility] [address], [place], [address], 09/25/2022 13:47:39 10/21/19 23 10/20/2022 CT, chest , w/o contr ast [facility] [address] [facility] [place] [address] Phone: Fax: Name: BILL BENÍTEZ Exam Date: 023 : [birth year] Age 36 Gender : M Access ion: [id number] Physic joe: AQUILES VILLANUEVA Facili ty: [facility] Facili ty HSV: Outpat ient Exam: CT CHEST W/O CT SCAN OF THE CHEST WITHOU T CONTRA ST COMPAR THIAGO: None. HISTOR Y: Alpha I antitr ypsin defici ency. PROCED URE: Axial images were obtain ed from the lung apex to the mid abdome n by comput ed tomogr aphy. This study was perfor med with techni ques to keep radiat ion doses as low as reason ably achiev able, (ALARA ). FINDIN GS: CHEST: There is no axilla ry adenop athy. There is no hilar or medias tinal adenop athy. Heart size is normal . There is no perica rdial or pleura l effusi on. Limite d images of the upper abdome n are unrema rkable . No cystic change s are identi fied in the lungs. There is a 4 mm noncal cified nodule identi fied in the right middle lobe on image 32. There is a 4 mm noncal cified nodule identi fied in the right lower lobe on image 41. There is basila r atelec tasis. There is eviden ce of prior calcif ied granul omatou s diseas e. Intras casey cathet er is noted. IMPRES MARIA R: No cystic change s identi fied in the lungs. Pulmon sarah nodule s as above. Follow -up CT of the chest in one year may be of benefi t. Images review ed, interp reted and dictat ed by Dr. Zacarias. Transc ribed by Vic Fontaine PA-C Dictat ed By: DANN ZACARIAS Transc ribed By: Dann Zacarias Transc ribed On: 023 3:28 PM Electr onical ly signed by: DANN ZACARIAS 023 Thank you for referr BILL Calderon to [facility]. Legall y authen ticate d by POPE DANN Ramos 0 10-20 15:28: 54 CC'ed Logic: Orderi ng Provid er: KOURA FIRAS Attend ing Provid er: KOURA FIRAS Admitt ing Provid er: K[facility]RA FIRAS [facility] - Physical Therapy [address] [place] [address], [address], 10/21/2022 10:01:28 Result Notes Documentation Provider Name and Address Organization Details Recorded Time Xr, Abdomen, 1 View : [facility] [address] [place] [address] Name: BILL TESFAYE Exam Date: 06/03/2022 : 1985 Age 36 Gender: M Physician: MARLON UP Facility: [facility] Facility HSV: Outpatient Exam: ABD KUB 1V Abdomen History: Intermittent constipation and diarrhea Findings: Single view the abdomen was obtained. There is a nonspecific bowel gas pattern. Mild retained stool is identified in the colon. Calcifications within the left upper quadrant likely represent calcified granulomas in the spleen. No convincing renal or ureteral stone is identified. Generator device overlies the right flank with spinal stimulator leads in place. Impression: Nonspecific bowel gas pattern. Mild retained stool. Images reviewed, interpreted and dictated by Dr. Zacarias. Transcribed by Vic Fontaine PA-C Dictated By: DANN ZACARIAS Transcribed By: Dann Zacarias Transcribed On: 06/03/2022 4:21 PM Electronically signed by: DANN ZACARIAS 06/03/2022 Thank you for referring BILL TESFAYE to [facility]. Legally authenticated by POPE DANN Ramos 2022-06-03 16:21:46 CC'ed Logic: Ordering Provider: ANNEL MASON Attending Provider: ANNEL MASON Referring Provider: ANNEL MASON Admitting Provider: ANNEL Up NP [address] [place], [address], [facility] & [place] 06/04/2022 16:25:11 Xr, Chest, 2 View : [place] [address] Name: BILL TESFAYE Exam Date: 09/25/2022 : 1985 Age 36 Gender: M Physician: AQUILES VILLANUEVA Facility: [facility] Facility HSV: Outpatient Exam: CHEST 2 VIEWS 2 view chest History: Cough Findings: 2 views. No prior exams. Heart and pulmonary vessels are normal. Lung borden are well inflated. No infiltrates or effusions are present. The tips of neural stimulator catheters terminate at the approximate T9 level. Impression: No significant findings in the lung borden. Dictated By: LANG MCCANN Transcribed By: Krystal Judge Transcribed On: 09/25/2022 1:02 PM Electronically signed by: LANG MCCANN 09/25/2022 Thank you for referring BILL TESFAYE to [facility]. Legally authenticated by RAMY CROFT 2022-09-25 13:16:32 CC'ed Logic: Ordering Provider: NOLA KWAN Attending Provider: NOLA KWAN Referring Provider: NOLA KWAN Admitting Provider: NOLA Villanueva MD [address] [place], [address], [facility] - NT [facility] & [place] 09/25/2022 13:47:39 Ct, Chest, W/o Contrast : [place] [id number] Name: BILL TESFAYE Exam Date: 10/20/2022 : 1985 Age 36 Gender: M Physician: AQUILES VILLANUEVA Facility: [facility] Facility HSV: Outpatient Exam: CT CHEST W/O CT SCAN OF THE CHEST WITHOUT CONTRAST COMPARISON: None. HISTORY: Alpha I antitrypsin deficiency. PROCEDURE: Axial images were obtained from the lung apex to the mid abdomen by computed tomography. This study was performed with techniques to keep radiation doses as low as reasonably achievable, (ALARA). FINDINGS: CHEST: There is no axillary adenopathy. There is no hilar or mediastinal adenopathy. Heart size is normal. There is no pericardial or pleural effusion. Limited images of the upper abdomen are unremarkable. No cystic changes are identified in the lungs. There is a 4 mm noncalcified nodule identified in the right middle lobe on image 32. There is a 4 mm noncalcified nodule identified in the right lower lobe on image 41. There is basilar atelectasis. There is evidence of prior calcified granulomatous disease. Intraspinal catheter is noted. IMPRESSION: No cystic changes identified in the lungs. Pulmonary nodules as above. Follow-up CT of the chest in one year may be of benefit. Images reviewed, interpreted and dictated by Dr. Zacarias. Transcribed by Vic Fontaine PA-C Dictated By: DANN ZACARIAS Transcribed By: Dann Zacarias Transcribed On: 10/20/2022 3:28 PM Electronically signed by: DANN ZACARIAS 10/20/2022 Thank you for referring BILL TESFAYE to [facility]. Legally authenticated by POPE DANN Ramos 2022-10-20 15:28:54 CC'ed Logic: Ordering Provider: NOLA KWAN Attending Provider: NOLA KWAN Admitting Provider: NOLA Villanueva MD [address], [place], [address], [place] - [facility] - [place] & [place] 10/21/2022 10:01:28 Problems Name Problem SNOMED Code Status Onset Date Resolution Date Notes Provider Name and Address Organization Details Recorded Time Gastro-esopha geal reflux disease with esophagitis 232372889 Active 2022 Praveen Cifuentes PA-C [address], [place], [address] , [place] - [facility] - [place] & [place] 3 12:21:58 Zgllw-2-vojvf rypsin deficiency 49238324 Active 2022 Aquiles Villanueva MD [address] [facility], [place], [address] , [place] - [facility] - [place] & [place] 3 13:41:54 Pulmonary emphysema 46756534 Active 2022 Aquiles Villanueva MD [address] [facility], [place], [address] , [place] - [facility] - [place] & [place] 3 13:41:59 Liver function tests outside reference range 422824497 Active 2022 Aquiles Villanueva MD [address] [facility], [place], [address] , [place] - [facility] & [place] 3 13:42:21 Constipation 75870534 Active 2022 Praveen Cifuentes PA-C [address] [facility], [place], [address] , [place] - [facility] & [place] 3 14:27:27 Heartburn 21939525 Active 2022 Praveen Cifuentes PA-C [address] [facility], [place], [address] , [place] - [facility] & [place] 3 14:27:27 Dysphagia 69187041 Active 2022 Praveen Cifuentes PA-C [address] [facility], [place], [address] , [place] - [facility] & [place] 3 14:27:27 Liver enzymes level above reference range 673403925 Active 2022 Praveen Cifuentes PA-C [address] [facility], [place], [address] , [place] - [facility] & [place] 3 14:27:28 Non-alcoholic fatty liver 825273752 Active [address], [place], [address] , [facility] & [place] 3 14:27:28 Acid reflux 989022509 Active 2022 Praveen Cifuentes PA-C [address] [facility], [place], [address] , [facility] & [place] 3 14:32:03 Problem Notes None recorded. Procedures Surgical History Date Name Laterality Status Provider Name and Address Organization Details Recorded Time 2022 esophagogastroduodenoscopy completed Eloise [facility] & [place] 3 13:11:51 Imaging Results None recorded. Procedure Notes None recorded. Medical Equipment None Reported. Allergies Allergen ID Allergen Name Allergen Category Reaction Reaction Severity Criticality Documentation Date Start Date Code Code System Note Provider Name and Address Organization Details Recorded Time 51915 Product containin g penicilli n (product) medicatio n Not available Not available Not available 06/03/2022 26224 8001 SNOMED Cecille Tyler [facility] & [place] 2 14:05:37 59306 tizanidin e medicatio n Not available Not available Not available 06/03/2022 33668 RxNorm Cecille Tyler [facility] & [place] 2 14:05:43 Medications Name Sig Start Date Stop Date Status Note LastModified by Organization Details LastModified Time amantadine HCl 100 mg tablet 05/31 completed Not Available Not Available Not Available doxycycline hyclate 100 mg capsule 09/25 completed Not Available Not Available Not Available tizanidine 4 mg tablet TAKE ONE TABLET BY MOUTH THREE TIMES DAILY MAY CAUSE DROWSINES S 09/25 completed Not Available Not Available Not Available chlorzoxazo ne 500 mg tablet TAKE ONE TABLET BY MOUTH THREE TIMES DAILY MAY CAUSE DROWSINES S active Not Available Not Available No t Available ondansetron HCl 4 mg tablet 09/25 completed Not Available Not Available Not Available famotidine 40 mg tablet TAKE ONE TABLET BY MOUTH EVERY DAY active Not Available Not Available No t Available prednisone 20 mg tablet TAKE ONE TABLET BY MOUTH TWICE DAILY --TAKE WITH FOOD-- 09/25 completed Not Available Not Available Not Available atenolol 25 mg tablet TAKE ONE TABLET BY MOUTH EVERY DAY active Not Available Not Available No t Available omeprazole 40 mg capsule,del ayed release TAKE ONE CAPSULE BY MOUTH EVERY DAY 09/25 completed Not Available Not Available Not Available aspirin 81 mg tablet,belkis yed release 09/25 completed Not Available Not Available Not Available quetiapine 100 mg tablet TAKE ONE TABLET BY MOUTH AT BEDTIME active Not Available Not Available No t Available acetaminoph en 500 mg tablet 09/25 completed Not Available Not Available Not Available alprazolam 0.5 mg tablet TAKE ONE TABLET BY MOUTH TWICE DAILY NEEDED FOR ANXIETY MAY CAUSE DROWSINES S active Not Available Not Available No t Available amitriptyli ne 25 mg tablet active Not Available Not Available Not Available amitriptyli ne 10 mg tablet TAKE ONE TABLET BY MOUTH EVERY DAY active Not Available Not Available No t Available pantoprazol e 40 mg tablet,belkis yed release TAKE ONE TABLET BY MOUTH TWICE DAILY BEFORE MEALS active Not Available Not Available No t Available lisinopril 10 mg tablet TAKE ONE TABLET BY MOUTH TWICE DAILY FOR hypertens ion active Not Available Not Available No t Available promethazin e 25 mg tablet active Not Available Not Available Not Available omeprazole 20 mg capsule,del ayed release Take 1 capsule twice a day by oral route for 30 days. 09/25 completed Not Available Not Available Not Available diclofenac sodium 75 mg tablet,belkis yed release active Not Available Not Available Not Available mupirocin 2 % topical ointment apply a SMALL AMOUNT of ointment TO THE affected area(s) topically THREE TIMES DAILY DIRECTED -- FOR EXTERNAL USE ONLY-- active Not Available Not Available No t Available gabapentin 100 mg capsule TAKE ONE CAPSULE BY MOUTH TWICE DAILY MAY CAUSE DROWSINES S 03/16 completed Not Available Not Available Not Available ibuprofen 600 mg tablet TAKE ONE TABLET BY MOUTH THREE TIMES DAILY NEEDED --TAKE WITH FOOD-- 09/25 completed Not Available Not Available Not Available polyethylen e glycol 3350 17 gram/dose oral powder DISSOLVE 17 GRAMS OF POWDER INTO 4 TO 8 OUNCES OF WATER, JUICE, SODA, COFFEE, OR TEA THEN DRINK EVERY DAY active Not Available Not Available No t Available celecoxib 100 mg capsule TAKE ONE CAPSULE BY MOUTH TWICE DAILY active Not Available Not Available No t Available ondansetron 4 mg disintegrat ing tablet DISSOLVE ONE TABLET in MOUTH EVERY 8 HOURS NEEDED FOR NAUSEA AND VOMITING active Not Available Not Available No t Available Tylenol 8 Hour 650 mg tablet,exte nded release active Not Available Not Available Not Available Cymbalta 60 mg capsule,del ayed release Take 1 capsule every day by oral route. active Not Available Not Available No t Available Gavilyte-C 240 gram-22.72 gram-6.72 gram-5.84 gram oral solution as directed orally 8 oz q15 until empty per office direction s 09/25 completed Not Available Not Available Not Available Senexon-S 8.6 mg-50 mg tablet 09/25 completed Not Available Not Available Not Available Cough DM ER 30 mg/5 mL oral suspension, extended release take 10 ML BY MOUTH TWICE DAILY 09/25 completed Not Available Not Available Not Available baclofen 5 mg tablet TAKE ONE TABLET BY MOUTH THREE TIMES DAILY NEEDED FOR MUSCLE SPASMS active Not Available Not Available No t Available Flowflex COVID-19 Antigen Home Test kit TEST DIRECTED TODAY active Not Available Not Available No t Available Vitals Date Recorded Body weight Body mass index (BMI) Body height Body temperature Oxygen saturation Oxygen saturation in Arterial blood by Pulse oximetry Heart rate Systolic blood pressure Diastolic blood pressure Provider Name and Address Organization Details Last Updated DateTime 3 910073. 3 g 29.4 kg/m2 185.42 cm 97.7 [degF] 98 % 98 % 79 /min 132 mm[Hg] 80 mm[Hg] Eloise MUSTAFA [facility] 3 13:13:39 Date Recorded Body height Body mass index (BMI) Body weight Body temperature Oxygen saturation Oxygen saturation in Arterial blood by Pulse oximetry Heart rate Systolic blood pressure Diastolic blood pressure Provider Name and Address Organization Details Last Updated DateTime 3 185.42 cm 28.9 kg/m2 36786.7 3 g 97.7 [degF] 97 % 97 % 99 /min 127 mm[Hg] 83 mm[Hg] Eloise MUSTAFA [facility] & [place] 3 13:59:45 Date Recorded Body height Body mass index (BMI) Body weight Body temperature Heart rate Oxygen saturation Oxygen saturation in Arterial blood by Pulse oximetry Systolic blood pressure Diastolic blood pressure Provider Name and Address Organization Details Last Updated DateTime 3 185.42 cm 26 kg/m2 55343.4 2 g 98.1 [degF] 83 /min 99 % 99 % 121 mm[Hg] 73 mm[Hg] Regla POPE [facility] & [place] 13:47:20 Date Recorded Body weight Heart rate Systolic blood pressure Diastolic blood pressure Provider Name and Address Organization Details Last Updated DateTime 06/03/2022 528693.43 g 69 /min 161 mm[Hg] 93 mm[Hg] Cecille POPE [facility] & [place] 06/03/2022 14:06:02 Date Recorded Body weight Heart rate Systolic blood pressure Diastolic blood pressure Provider Name and Address Organization Details Last Updated DateTime 07/01/2022 363288.65 g 82 /min 147 mm[Hg] 100 mm[Hg] Cecille Tyler [facility] & [place] 07/01/2022 10:23:53 Social History Question Answer Notes LastModified by [email or web address] Details LastModified Time Tobacco Smoking Status Never Smoker [facility] [place] 09/25/2022 13:11:32 What Is Your Level Of Caffeine Consumption? Heavy [email or web address] Information not available 03/16/2023 Sex: Male Functional Status Question Answer Note LastModified by [employer] Details LastModified Time Do you use any illicit or recreational drugs? No [email or web address] Information not available 09/25/2022 What is your level of alcohol consumption? None [email or web address] Information not available 09/25/2022 Mental Status None recorded. Family History Relationship Description Onset Age of this Age Resolved Age Notes LastModified by Organization Details LastModified Time Father No current problems or disability [email or web address] Not available 09/25 13:11:06 Mother No current problems or disability Not available 09/25 13:11:06 Medical History No medical history recorded. Past Encounters Encounter ID Performer Location Encounter Start Date Encounter Closed Date Diagnosis/Indication Diagnosis SNOMED-CT Code Diagnosis ICD10 Code Diagnosis Note [id number] Marlon Up NP [facility] [address] [place] [address] 06/03/2022 13:41:49 06/03/2022 15:20:05 Liver enzymes level above reference range 129170129 R74.01 - labs and liver ultrasound ordered today- follow-up in 4 weeks to discuss Constipation 53047631 K5 9.00 - Discussed Miralax bowel purge, then take once daily or as needed- abdominal xray ordered- consider Linzess if no improvemen t Heartburn 80877784 R12 - increase omeprazole to twice daily- may continue famotidine as needed- EGD scheduled- Also see scanned GERD-HRQL Questionna alyx Dysphagia 31817331 R13.1 0 - feels like food gets stuck several times per month- EGD scheduled [id number] Marlon Up NP [facility] [address] [place] [address] 07/01/2022 10:17:23 07/01/2022 11:16:42 Constipation 11617290 K59.00 - continue MiraLax- increase water and fiber in diet increase activity level Heartburn 39253441 R12 - increase omeprazole to twice daily- may continue famotidine as needed- EGD scheduled- Also see scanned GERD-HRQL Questionna alyx Dysphagia 63414698 R13.1 0 - feels like food gets stuck several times per month- EGD scheduled Non-alcoho lic fatty liver 364074239 K76.0 - F0, S3- Immune to Hep A and Hep B- Avoid NSAIDs and alcohol.- Do not take over 2 g of acetaminop hen daily.- Discussed weight loss and healthy diet. Carrier of hemochromatosis 3924477025 9103 Z14.8 - discussed with patient explained genetic testing need for biological children- 187c>g (p. Fsq46Ddl)- detected heterozygo us Alpha-1-an titrypsin deficiency 62174123 E88.01 - 1096 g>a= Z allele detected- phenotype MZ- serum result 71- discussed with patient explained genetic testing need for biological children- referral placed to pulmonolog y. Denies respirator y symptoms at this time- was also found to have elevated HARMEET (see patient case 06/09/2022 for rheumatolo gy referral) Liver enzy mes level above reference range 124293949 R74.01 - MELD 3.0- 6- actin smooth muscle antibody was also mildly elevated- discussed with patient possibilit y of autoimmune hepatitis is well- liver biopsy scheduled [id number] Aquiles Villanueva MD [address] [place] [address] 09/25/2022 13:00:26 09/25/2022 13:51:51 Tgkfz-0-dlwupdthvcr deficiency 38366634 E88.01 Patient had alpha-1 antitrypsi n phenotype MZ with level of 71.Will confirm the testing by performing dry blood spot testing in the office today.Will check CT of the chest and full PFTs with DLCO to complete the workup.Pat ient is adopted and there is no immediate blood related adult relatives to be tested.Of interest, his mother-in- law has alpha-1 antitrypsi n and currently in the process to undergo lung transplant . Images of chest x-ray done today were reviewed and discussed with the patient and his , there is no evidence of acute finding and await official radiologis t report. Pulmonary emphysema 8743 3001 J43.9 Spirometry done in the office today showed evidence of obstructio n with decrease in FEV1 down to 56% predicted and that was reviewed and discussed with the patient and his . Will check full PFTs and treat according to the results if indicated. Liver func tion tests outside reference range 834735356 R94.5 Patient to continue follow-up with the GI service and their recommenda tions. [id number] Aquiles Villanueva MD [address] [place] [address] 10/30/2022 13:50:37 10/30/2022 14:24:46 Wjizr-0-wnyitmqmiin deficiency [id number] E88.01 images and report of CT of the chest done recently were reviewed and discussed with the patient, there is no evidence of acute finding. PFT results were reviewed and discussed with the patient and his , there is no evidence of obstructio n with an FEV1 of 95% predicted. Repeat alpha-1 antitrypsi n testing confirmed the MZ phenotype. At the present time there is no indication for augmentati on treatment and will continue to test the patient annually unless new symptoms starts before then. Liver func tion tests outside reference range [id number] R94.5 Patient to continue follow-up with the GI service and their recommenda tions. [id number] Praveen Cifuentes PA-C [facility] [address] [facility] [address] [place] [address] 03/16/2023 13:42:31 03/16/2023 14:28:43 Constipation 67084349 K59.00 Dysphagia 11834371 R13.1 0 Non-alcoho lic fatty liver 590676787 K76.0 Carrier of hemochromatosis [id number] 9103 Z14.8 Alpha-1-an titrypsin deficiency 55287533 E88.01 Liver enzy mes level above reference range 836709478 R74.01 Gastro-eso phageal reflux disease with esophagitis 599779098 K21.00 Health Concerns Section Related Observation LastModified by Organization Detai ls LastModified Time None Recorded Concern Status LastModified by Organization Details LastModified Time None Recorded Advance Directives Directive None Recorded Payers Insurance Date Sequence Insurance Name Policy Number Policy Rojas Covered Member ID Rojas Member ID Guarantor Name 05/04/2023 1 [facility] (MEDICAID HMO) Bill Tesfaye [id number] Bill Tesfaye Notes Date Note Type Note Provider Name and Address Organization Details Recorded Time 06/03/2022 text/html Patient is a 36-year-old male referred to us from [facility] primary care, Ly Castellano APRN related to elevated liver enzymes. Patient reports he used to drink heavily but has not had any alcohol intake for 8 years. Reports history of heartburn takes omeprazole in the morning and Pepcid at bedtime with minimal relief. Reports persistent abdominal bloating, gas and pressure. Also reports intermittent dysphagia, several times throughout the month. Denies diarrhea or hematochezia. Reports history of constipation and watery stool. Denies nausea, vomiting or hematemesis. Marlon Up, EDWIN [address] [facility], [place], [address], [facility] [place] & [place] 06/03/2022 15:27:39 07/01/2022 text/html (06/03/22) Alyssa sifuentes is a 36-year-old male referred to us from [facility] primary care, Ly Castellano APRN related to elevated liver enzymes. Patient reports he used to drink heavily but has not had any alcohol intake for 8 years. Reports history of heartburn takes omeprazole in the morning and Pepcid at bedtime with minimal relief. Reports persistent abdominal bloating, gas and pressure. Also reports intermittent dysphagia, several times throughout the month. Denies diarrhea or hematochezia. Reports history of constipation and watery stool. Denies nausea, vomiting or hematemesis.() patient is here today for lab follow-up. Reports MiraLax is helping with constipation. Reports omeprazole is helping but seems to wear off part way through the day. Denies nausea, vomiting or hematemesis. Denies diarrhea or hematochezia. Marlon Up NP [address], [place], [address], [facility] & [place] 07/01/2022 15:44:12 09/25/2022 text/html Patient presents to the office today for initial evaluation. Patient states that he had occasional shortness of breath at rest and dyspnea exertion and actually his back pain is the main limitation for his activity. He denies fever, chills or diaphoresis. No chest pain, angina or palpitation. No PND or orthopnea. Patient denies wheezing or hemoptysis. Patient denies history of smoking, environmental exposure, asthma, COPD or inhaler use. Patient denies significant change in his weight or appetite. Patient undergoing evaluation for abnormal LFTs and found to have alpha-1 antitrypsin so patient was referred for further evaluation. Aquiles Villanueva MD [address], [place], [address], [facility] & [place] 09/25/2022 13:46:22 10/30/2022 text/html Patient presents to the office today for follow-up visit. Patient states that he does not have significant respiratory complain. No shortness of breath at rest or with exertion. He denies fever, chills or diaphoresis. No chest pain, angina or palpitation. No PND or orthopnea. Patient denies wheezing or hemoptysis. Patient states that his activity is mainly limited to his back pain and recent surgery. Patient denies significant change in his weight or appetite. Aquiles Villanueva MD [address], [place], [address], [place] [facility] & [place] 10/30/2022 14:41:36 03/16/2023 text/html (06/03/22) Alyssa sifuentes is a 36-year-old male referred to us from [facility] primary care, Ly Castellano APRN related to elevated liver enzymes. Patient reports he used to drink heavily but has not had any alcohol intake for 8 years. Reports history of heartburn takes omeprazole in the morning and Pepcid at bedtime with minimal relief. Reports persistent abdominal bloating, gas and pressure. Also reports intermittent dysphagia, several times throughout the month. Denies diarrhea or hematochezia. Reports history of constipation and watery stool. Denies nausea, vomiting or hematemesis.() patient is here today for lab follow-up. Reports MiraLax is helping with constipation. Reports omeprazole is helping but seems to wear off part way through the day. Denies nausea, vomiting or hematemesis. Denies diarrhea or hematochezia. CURRENT (03/16/23): Mr. Tesfaye returns to the office today for follow-up regarding elevated liver enzymes, dysphagia, and GERD. He feels his heartburn is much better controlled since switching to the Protonix twice daily. He does report progressively worsening dysphagia to solids. He admits to some p.o. avoidance due to stress associated with this. He felt his swallowing was much better following empiric dilation back in August than it is currently. He also reports constipation and infrequent stools alternating with occasional liquid stools. Praveen Cifuentes PA-C [address], [place], [address], [place] [facility] & [place] 03/16/2023 23:23:59
--- OUTSIDE RECORDS SUMMARY | 2025-02-03 09:49 | XMS_ITS | Encounter Summary ---
Author Organization [facility] Address [address] [place] [address] Care Team Providers Care Cafeteria Associate Name Role Phone Khadarluz elenaInocencia APRN, DNP Unavailable [phone]- [phone] Ly Morales [facility] [employer] [facility] Primary Care Provider +1- [phone] Encounter Details Date Type Department Care Team (Late Contact Info) Description 12/29/2024 [facility] Nephrology, Bone & Mineral Metabolism [address] [facility], [address] [place] [address] Hillary Ruiz [facility] [address] [place] [address] Social History Tobacco Use Types Packs/Day Years Used Date Smoking Tobacco: Never Smokeless Tobacco: Never Alcohol Use Standard Drinks/Week Comments Never 0 [...] PM EDT documented as of this encounter Miscellaneous Notes * Telephone Encounter - Hillary Ruiz - 12/29/2024 4:37 PM EDT Confirmed appointment [facility] documented in this encounter Plan of Treatment Upcoming Encounters Date Type Department Care Team (Late st Contact Info) Description 03/13/2025 9:00 AM EDT Office Visit [facility] [address] [place] [address] Helene Pal APRN, BETO [address] [place] [address] documented as of this encounter Visit Diagnoses Not on filedocumented in this encounter Additional Health Concerns Assessment Noted Time A fall risk assessment has been complete d for the patient 11/24/2024 9:13 AM EDT A Body Mass Index follow-up plan has been documented for the patient 11/29/2024 11:25 AM EDT documented as of this encounter Care Teams Cafeteria Associate Relationship Specialty Start Date End Date Ly Morales APRN [address] [place] [address] PCP - General 12/29/22 Inocencia Hastings APRN, DNP [address] [place] [address] Nurse Practitioner Neurosurgery 07/11/22 documented as of this encounter
--- OUTSIDE RECORDS SUMMARY | 2025-02-03 09:49 | XMS_ITS | Clinical Summary ---
Author Organization Healthcare Address [address] [place] [address] Care Team Providers Care Assistant Media Buyer Name Role Phone Khadarluz elenaInocencia APRN, DNP Unavailable [phone]- [phone] Ly Morales APRN Primary Care Provider [phone]- [phone] Allergies Active Allergy Reactions Criticality Noted Date Comments Penicillins Anaphylaxis,Wheezing ,Shortness of breath,Unknown - Patient states they do not know rxn details High 05/22/2012 Tizanidine Other - please docum ent in the comment field Low 07/11/2022 Medications Multiple Vitamin (MULTI VITAMIN MENS PO) Take by mouth 1 (one) time each day. 7 Active famotidine (Pepcid) 40 MG tablet Take 1 tablet (40 mg) by mouth 1 (one) time each day. 1 Active pantoprazole (Protonix) 40 MG EC tablet 2 (two) times a day. Active busPIRone (Buspar) 5 MG tablet TAKE ONE TABLET BY MOUTH THREE TIMES DAILY DIRECTED 3 Active DULoxetine (Cymbalta) [address] capsule TAKE ONE CAPSULE BY MOUTH EVERY DAY IN THE MORNING DIRECTED 3 Active ondansetron ODT (Zofran-ODT) 4 MG disintegrating tablet DISSOLVE ONE TABLET BY MOUTH EVERY 8 HOURS NEEDED FOR NAUSEA AND VOMITING 3 Active polyethylene glycol (Miralax) 17 GM/SCOOP powder DISSOLVE 17 GRAMS OF POWDER INTO 4 TO 8 OUNCES OF WATER, JUICE, SODA, COFFEE, OR TEA THEN DRINK EVERY DAY 3 Active QUEtiapine (SEROquel) 100 MG tablet Take 1 tablet (100 mg) by mouth every night. Active metoprolol succinate XL (Toprol-XL) 25 MG 24 hr tablet 1 tablet (25 mg). 4 Active sacubitril-valsarta n (Entresto) 49-51 MG tablet Take 1 tablet by mouth 2 times a day. 3 Active rivaroxaban (Xarelto) 10 MG tablet 2 tablets (20 mg). 4 Active tamsulosin (Flomax) 0.4 MG 24 hr capsule 1 capsule (0.4 mg). PRN 4 Active baclofen (Lioresal) 10 MG tablet Start by taking 1 pill by mouth at bedtime, slowly increase up to 1 pill 2x/day, with a maximum of 2 pills 3x/day as needed/kisha ated. Do not stop abruptly, slowly wean if you discontinue. 180 tablet 11 5 Active Active Problems Problem Noted Date Diagnosed Date PFD (pelvic floor dysfunction) 11/29/2024 Neurogenic bladder 11/29/2024 Radiculopathy, lumbar region 10/14/2024 Myopia, bilateral 10/03/2024 Intervertebral disc disorder s with myelopathy, lumbar region 09/14/2024 Cardiomegaly 09/14/2024 Other specified polyneuropathies 09/13/2024 Localized edema 09/13/2024 Spondylosis without myelopat hy or radiculopathy, lumbar region 08/09/2024 Arthropathy, unspecified 08/09/2024 Peripheral vascular disease, unspecified 024 Spinal stenosis, lumbar vanessa on without neurogenic claudication 07/12/2024 Abnormal result of cardiovascular function study 07/04/2024 Cardiomyopathy 07/04/2024 Degenerative disc disease, lumbar 07/04/2024 Decreased pedal pulses 07/04/2024 Daytime somnolence 07/04/2024 Overview (07/04/2024): History, findings on exam and risk factors are suggestive of underlying sleep disordered breathing. Recent home sleep study was inconclusive and cannot exclude underlying mild MARYCRUZ. I am recommending a PSG under supervision at the sleep center. The patient voiced understanding and was in agreement with the plan. Change of skin color 07/04/2024 Nail finding 07/04/2024 Urine frequency 07/04/2024 Fatty liver 07/04/2024 Fatigue 07/04/2024 Exposure to COVID-19 virus 07/04/2024 Esophageal stricture 07/04/2024 Overview (07/04/2024): Hx of esophageal stretching x 2, AVOID LENARD Edema of right foot 07/04/2024 Hearing difficulty of both ears 07/04/2024 Right foot infection 07/04/2024 Onychomycosis 07/04/2024 Obesity (BMI 30.0-34.9) 07/04/2024 Obstructive sleep apnea syndrome 07/04/2024 LV dysfunction 07/04/2024 Keratosis 07/04/2024 Onychodystrophy 07/04/2024 Stranguria 07/04/2024 SOB (shortness of breath) 07/04/2024 Snoring 07/04/2024 Postlaminectomy syndrome 07/04/2024 Palpitations 07/04/2024 Pain and swelling of toe of left foot 07/04/2024 Systolic heart failure 07/04/2024 Chronic HFrEF (heart failure with reduced ejection fraction) 07/04/2024 Suspected severe acute respi ratory syndrome coronavirus 2 (SARS-CoV-2) infection 07/04/2024 Overview (07/04/2024): Removal Reason: Problem added by user [email or web address] from the COVID-19 watch flag Suicidal ideation 07/04/2024 Chronic low back pain 07/04/2024 URI (upper respiratory infection) 07/04/2024 Tinnitus 07/04/2024 Painful legs and moving toes of right foot 07/04 Chest pain 07/04/2024 Retention, urine 07/04/2024 Difficulty voiding 07/04/2024 Straining to void 07/04/2024 Dysuria 07/04/2024 Pain in right leg 06/22/2024 Excoriation (skin-picking) disorder 12/15/2023 Gastroesophageal reflux disease without esophagi tis 11/06/2023 Constipation 03/16/2023 Elevated liver enzymes 03/16/2023 Dysphagia 03/16/2023 Heartburn 03/16/2023 Nonalcoholic fatty liver 03/16/2023 Depression 02/27/2023 Slysc-7-[id number] deficiency 10/16/2022 Abnormal liver function tests 09/25/2022 Pulmonary emphysema 09/25/2022 Gastro-esophageal reflux disease with esophagiti s 09/03/2022 Dizziness 04/03/2022 Tear of right acetabular labrum 09/17/2021 Overview (09/17/2021): Added automatically from request for surgery [id number] Acute pharyngitis 03/22/2021 Hip pain 11/08/2020 Injury of muscle of right foot 08/25/2019 Infection of toe 11/02/2018 Anxiety 10/30/2017 Chest discomfort 10/30/2017 Herniated nucleus pulposus, L4-5 right 7 Ingrown toenail of left foot with infection 06/11 Leg numbness 03/03/2017 Lumbar facet arthropathy 03/03/2017 Radicular pain of right lower extremity 03/03/20 17 Symptoms involving urinary system 01/01/2017 Acid reflux 06/10/2016 Hypertensive disorder 06/10/2016 Cellulitis 06/10/2016 Ingrowing nail 06/10/2016 Chronic back pain 12/07/2015 Encounters Date Type Department Care Team Description 01/04/2025 2:00 PM EDT Office Visit [facility] Nephrology, Bone & Mineral Metabolism [address] [facility], [address] [place] [address] Gerson Vance MD History of proteinuria syndrome (Primary Dx); Retention, urine; Stage 3a chronic kidney disease (CMS/HCC) 01/04/2025 Travel 12/29/2024 Telephone [facility] Nephrology, Bone & Mineral Metabolism [address] , [address] [place] [address] Hillary Ruiz 11/24/2024 9:20 AM EDT Office Visit [facility] [address] [place] [id number] Helene Pal, JOB LITHOGRAPHER, DNP Urine frequency (Primary Dx); Retention, urine; Difficulty voiding; PFD (pelvic floor dysfunction); Neurogenic bladder 11/24/2024 Orders Only External Location [address] [place] [id number] Provider, External 11/24/2024 Travel 11/22/2024 Travel from Last 3 Months Immunizations Immunization Administration Dates Next Due Hep A, Adult 07/27/2018 Hep A, ped/adol, 2 dose 10/16/2022 Hep B, Adolescent or Pediatric 07/15/2001 Hep B, adult 10/16/2022 Influenza, Unspecified 05/17/2015 Influenza, injectable, quadrivalent 05/10,05/22/2022,07/12/2020,06/14,05/13/2018,06/03/2017 Influenza, injectable, quadr ivalent, preservative free 06/10/2016 Influenza, seasonal, injectable 04/15/2024 Influenza, seasonal, injecta ble, preservative free 06/18/2010 Pneumococcal 20-melody Conj Vaccine 10/16/2022 Pneumococcal Polysaccharide PPV23 06/18/2010 TD (adult), 2 Lf tetanus tox oid, preservative free, adsorbed 01/13/2005 Tdap 10/17/2021 Family History Medical History Relation Name Comments No Known Problems Father No Known Problems Mother Relation Name Status Comments Father Mother Social History Tobacco Use Types Packs/Day Years [...] Orientation Straight 01/21/2021 12 :55 PM EDT Last Filed Vital Signs Vital Sign Reading [...] Mass Index 35.89 01/04/2025 1:46 PM EDT Plan of Treatment Upcoming Encounters Date Type Department Care Team (Late st Contact Info) Description 03/13/2025 9:00 AM EDT Office Visit [place] [facility] [address] [place] [address] Helene Pal APRN, DNP [address] [place] [address] Health Maintenance Due Date Last Done Comments [facility]-HIV Screening 1987 [facility]-Hepatitis C Screening 1987 [facility]-Medicare Annual Wellness (AWV) 1987 [facility]-Infant/Child/Adol SDOH Screenings 1987 [facility]-Varicella Vaccines (1 of 2 - 13+ 2-dose series) 12/08/2000 HPV Vaccines (1 - Male 3-dose series) 12/08/2002 [facility]- SDOH Screenings 12/08/2005 [facility]-Adult SDOH Screenings 12/08/2005 [facility]-Hepatitis B Vaccines (3 of 3 - 3-dose series) 12/11/2022 10/16/2022, 07/15/2001 [facility]-Hepatitis A Vaccines (2 of 2 - Risk 2-dose series) 04/18/2023 10/16/2022, 07/27/2018 [id number] Vaccine ( - season) 2024 10/02/2022, 05/09/2021, 04/10/2021 [facility]-Depression Screening 11/24/2025 11/24/2024 [facility]-DTaP,Tdap,and Td Vaccines (3 - Td or Tdap) 10/18/2031 10/17/2021, 01/13/2005 [facility]-Zoster Vaccines (1 of 2) 12/08/2037 [facility]-Pneumococcal Vaccine: Pediatrics (0 to 5 Years) and At-Risk Patients (6 to 49 Years) Completed 10/16/2022, 06/18/2010 [facility]-Influenza Vaccine Completed 04/15/2024 , 05/19/2023, 05/22/2022, Additional history exists [facility]-Obesity Intervention Completed 025, 07/04/2024, 05/06/2023, Additional history exists [facility]-HIB Vaccines Aged Out No longer e ligible based on patient's age to complete this topic [facility]-IPV Vaccines Aged Out No longer e ligible based on patient's age to complete this topic [facility]-Rotavirus Vaccines Aged Out No lo nger eligible based on patient's age to complete this topic Medical Devices Implanted Type Area Manager Investigations Device Identifier Shelf Expiration Date Model / Serial / Lot Scs Lead- 9 Implanted:Qty: 2 on 07/27/2019 Lead Back Medtronic [id number] / / Medtronic Spinal Cord Stimulator- Implanted:07/10 (Quantity not on file) Spinal Cord Stimulator Back Medtronic [id number] / [id number] / Description:LEAD MODEL: [id number], qty 2 Procedures Procedure Name Priority Date/Time Associated Diagnosis Comments RENAL FUNCTION PANEL, PLASMA Routine 01/04/2025 2:39 PM EDT History of proteinuria syndrome CBC WITH AUTO DIFFERENTIAL Routine 01/04/2025 2:39 PM EDT History of proteinuria syndrome VITAMIN D 25 HYDROXY Routine 01/04/2025 2:39 PM EDT History of proteinuria syndrome Stage 3a chronic kidney disease (CMS/HCC) URINALYSIS MICROSCOPIC FOR UA REFLEX Routine 01/04/2025 2:32 PM EDT History of proteinuria syndrome URINALYSIS WITH REFLEX MICROSCOPIC Routine 01/04/2025 2:32 PM EDT History of proteinuria syndrome ALBUMIN, URINE, RANDOM Routine 2:32 PM EDT History of proteinuria syndrome PROTEIN, URINE, RANDOM WITH CREATININE Routine 01/04/2025 2:32 PM EDT History of proteinuria syndrome UROLOGY UDS WITH BASE PERFORMABLE CHARGES Routine 11/24/2024 9:57 AM EDT Retention, urine OK COMPLEX CYSTOMETROGRAM W/VOID PRESS&URETHRAL PROFILE Routine 11/24/2024 9:57 AM EDT Retention, urine INJECTION FOR BLADDER XRAY WITHOUT VOIDING Routine 11/24/2024 9:57 AM EDT Retention, urine POC ULTRASOUND 11/24/2024 POC US BLADDER SCAN FOR VOLUME Routine 11/24/2024 Retention, urine from Last 3 Months Results * Vitamin D 25 Hydroxy (01/04/2025 2:39 PM EDT) Vitamin D 25 Hydroxy 22.2 20.0 - 80.0 ng/mL 01/04/2025 6:55 PM EDT [facility] Blood Venous blood specimen / Unknown Venipuncture / Unknown 01/04/2025 2:39 PM EDT 01/04/2025 2:39 PM EDT Narrative [facility] - 01/04/2025 6:55 PM EDT Testing performed on Jack Lathe Puller, standardized against NIST SRM 2972. When testing [...] MD LAB BLOOD ORDERABLES Final Resul t [facility] [address] [place] [address] * (ABNORMAL) CBC and Differential (01/04/2025 2:39 PM EDT) [facility] Signature WBC Count 7.75 3.70 - 10.30 10*3/uL LAB HEMATOLOGY METHOD 01/04/2025 5:27 PM EDT [facility] RBC Count 4.93 4.60 - 6.10 10*6/uL LAB HEMATOLOGY METHOD 01/04/2025 5:27 PM EDT [facility] HGB 14.4 13.7 - 17.5 g/dL LAB HEMATOLOGY METHOD 01/04/2025 5:27 PM EDT [facility] HCT 44.0 40.0 - 51.0 % LAB HEMATOLOGY METHOD 01/04/2025 5:27 PM EDT [facility] Platelet Count 292 155 - 369 10*3/uL LAB HEMATOLOGY METHOD 01/04/2025 5:27 PM EDT [facility] MCV 89 79 - 98 fL LAB HEMATOLOGY METHOD 01/04/2025 5:27 PM EDT [facility] MCH 29.2 26.0 - 32.0 pg LAB HEMATOLOGY METHOD 01/04/2025 5:27 PM EDT [facility] MCHC 32.7 30.7 - 35.5 g/dL LAB HEMATOLOGY METHOD 01/04/2025 5:27 PM EDT [facility] RDW 14.6(H) 11.5 - 14.5 % LAB HEMATOLOGY METHOD 01/04/2025 5:27 PM EDT [facility] MPV 9.9 8.8 - 12.5 fL LAB HEMATOLOGY METHOD 01/04/2025 5:27 PM EDT [facility] nRBC 0.0 <=0.0 per 100 WBCs LAB HEMATOLOGY METHOD 01/04/2025 5:27 PM EDT [facility] Differential Type Automated LAB HEMATOLOGY METHOD 01/04/2025 5:27 PM EDT [facility] Neutrophils % 57 % LAB HEMATOLOGY METHOD 01/04/2025 5:27 PM EDT [facility] Lymphocytes % 27 % LAB HEMATOLOGY METHOD 01/04/2025 5:27 PM EDT [facility] Monocytes % 9 % LAB HEMATOLOGY METHOD 01/04/2025 5:27 PM EDT [facility] Eosinophils % 5 % LAB HEMATOLOGY METHOD 01/04/2025 5:27 PM EDT [facility] Basophils % 1 % LAB HEMATOLOGY METHOD 01/04/2025 5:27 PM EDT [facility] Immature Granulocytes % 1 % LAB HEMATOLOGY METHOD 01/04/2025 5:27 PM EDT [facility] Neutrophils Absolute 4.49 1.60 - 6.10 10*3/uL LAB HEMATOLOGY METHOD 01/04/2025 5:27 PM EDT [facility] Lymphocytes Absolute 2.06 1.20 - 3.90 10*3/uL LAB HEMATOLOGY METHOD 01/04/2025 5:27 PM EDT [facility] Monocytes Absolute 0.70 0.30 - 0.90 10*3/uL LAB HEMATOLOGY METHOD 01/04/2025 5:27 PM EDT [facility] Eosinophils Absolute 0.40 0.00 - 0.50 10*3/uL LAB HEMATOLOGY METHOD 01/04/2025 5:27 PM EDT [facility] Basophils Absolute 0.04 0.00 - 0.10 10*3/uL LAB HEMATOLOGY METHOD 01/04/2025 5:27 PM EDT [facility] Immature Granulocytes Absolute 0.06 0.00 - 0.06 10*3/uL LAB HEMATOLOGY METHOD 01/04/2025 5:27 PM EDT [facility] Blood Venous blood specimen / Unknown Venipuncture / Unknown 01/04/2025 2:39 PM EDT 01/04/2025 2:39 PM EDT Narrative [facility] - 01/04/2025 5:27 PM EDT Therapeutic decision making should be based on absolute values, rather than percentages. Gerson Vance MD LAB BLOOD ORDERABLES Final Resul t [facility] [address] [place] [id number] * (ABNORMAL) Renal Function Panel, Plasma (01/04/2025 2:39 PM EDT) Pathologist [facility] Glucose, Plasma 121(H) 74 - 99 mg/dL 01/04/2025 5:47 PM EDT [facility] BUN, Plasma 8 7 - 21 mg/dL 01/04/2025 5:47 PM EDT [facility] Creatinine, Plasma 1.07 0.70 - 1.20 mg/dL 01/04/2025 5:47 PM EDT [facility] BUN/Creatinine Ratio 7 01/04/2025 5:47 PM EDT [facility] Sodium, Plasma 141 136 - 145 mmol/L 01/04/2025 5:47 PM EDT [facility] Potassium, Plasma 4.0 3.6 - 4.9 mmol/L 01/04/2025 5:47 PM EDT [facility] Chloride, Plasma 105 97 - 107 mmol/L 01/04/2025 5:47 PM EDT [facility] CO2, Plasma 23 22 - 29 mmol/L 01/04/2025 5:47 PM EDT [facility] Anion Gap 13 6 - 16 mmol/L 01/04/2025 5:47 PM EDT [facility] Total Calcium, Plasma 9.2 8.9 - 10.2 mg/dL 01/04/2025 5:47 PM EDT [facility] Phosphorus, Plasma 4.0 2.5 - 4.5 mg/dL 01/04/2025 5:47 PM EDT [facility] Albumin, Plasma 4.6 3.5 - 5.2 g/dL 01/04/2025 5:47 PM EDT [facility] eGFRcr 91.7 mL/min/1.7 3m*2 01/04/2025 5:47 PM EDT [facility] Comment:Reported eGFRcr in m L/min/1.73m2 is based the CKD-EPI 2020 equation that does not use a race coefficient. Blood Venous blood specimen / Unknown Venipuncture / Unknown 01/04/2025 2:39 PM EDT 01/04/2025 2:39 PM EDT us Gerson Vance MD LAB BLOOD ORDERABLES Final Resul t Performing Organization Address [facility] de Phone Number [facility] [address] [place] [address] * Urinalysis Microscopic Examination (01/04/2025 2:32 PM EDT) Urine Urine specimen obtained by clean catch procedure / Unknown Non-blood Collection / Unknown 01/04/2025 2:32 PM EDT 01/04/2025 2:34 PM EDT us Gerson Vance MD LAB URINE ORDERABLES Final Resul t Performing Organization Address City/[facility] Co de Phone Number [facility] [address] [place] [address] * Albumin-creatinine ratio, urine, random (01/04/2025 2:32 PM EDT) Microalbumin, Urine <1.2 <1.9 mg/dL 01/04/2025 6:09 PM EDT [facility] Creatinine, Urine 215 mg/dL 01/04/2025 6:09 PM EDT [facility] Albumin/Creatin ine Ratio 01/04/2025 6:09 PM EDT [facility] Comment:Unable to calculate, at least one value is above or below the detection limit. Urine Urine specimen obtained by clean catch procedure / Unknown Non-blood Collection / Unknown 01/04/2025 2:32 PM EDT 01/04/2025 2:34 PM EDT us Gesron Vance MD LAB URINE ORDERABLES Final Resul t Performing Organization Address City/[facility]/ZIP Co de Phone Number [facility] [address] [place] [address] * Protein, Random, Urine with Creatinine (01/04/2025 2:32 PM EDT) Protein, Urine 10 mg/dL 01/04/2025 5:44 PM EDT [facility] Creatinine, Urine 209 mg/dL 01/04/2025 5:44 PM EDT [facility] Protein/Creati nine Ratio 0.0 mg/mg Creat 01/04/2025 5:44 PM EDT [facility] Urine Urine specimen obtained by clean catch procedure / Unknown Non-blood Collection / Unknown 01/04/2025 2:32 PM EDT 01/04/2025 2:34 PM EDT us Gerson Vance MD LAB URINE ORDERABLES Final Resul t Performing Organization Address City/[facility]/ZIP Co de Phone Number [facility] [address] [place] [address] * (ABNORMAL) Urinalysis with reflex microscopic (Culture NOT Included) (01/04/2025 2:32 PM EDT) Color, Urine Yellow LAB URINALYSIS - AUTOMATED METHOD [facility]04[facility] Clarity, Urine Clear LAB URINALYSIS - AUTOMATED METHOD 01/04/2025 6:[facility] Spec [place], Urine 1.020 1.005 - 1.030 LAB URINALYSIS - AUTOMATED METHOD 01/04/2025 6:07 PM [facility] pH, Urine 5.5 5.0 - 8.0 LAB URINALYSIS - AUTOMATED METHOD 01/04/2025 6:07 PM EDT [facility] Protein, Urine Negative Negative mg/dL LAB URINALYSIS - AUTOMATED METHOD 01/04/2025 6:07 [facility] Glucose, Urine Negative Negative mg/dL LAB URINALYSIS - AUTOMATED METHOD 01/04/2025 6:07 PM [facility] Ketones, Urine Trace(A) Negative mg/dL LAB URINALYSIS - AUTOMATED METHOD 01/04/2025 6:07 PM [facility] Blood, Urine Trace(A) Negative LAB URINALYSIS - AUTOMATED METHOD 01/04/2025 6:07 PM [facility] Bilirubin, Urine Negative Negative LAB URINALYSIS - AUTOMATED METHOD 01/04/2025 6:07 PM [facility] Urobilinogen, Urine 1.0 0.2 to 1.0 mg/dL LAB URINALYSIS - AUTOMATED METHOD 01/04/2025 6:07 PM [facility] Leukocytes, Urine Negative Negative LAB URINALYSIS - AUTOMATED METHOD 01/04/2025 6:07 PM [facility] Nitrite, Urine Negative Negative LAB URINALYSIS - AUTOMATED METHOD 01/04/2025 6:07 PM [facility] RBC, Urine 4 - 10(A) 0 to 3 /HPF 01/04/2025 6:07 PM [facility] Comment:This result was prev iously suppressed from the chart. WBC, Urine 0 - 5 0 to 5 /HPF 01/04/2025 6:07 PM [facility] Comment:This result was prev iously suppressed from the chart. Squamous Epithelial Cells 0 - 2 0 to 5 /HPF 01/04/2025 6:07 PM T [facility] Comment:This result was prev iously suppressed from the chart. Hyaline Casts 0 - 2 0 to 5 /LPF 01/04/2025 6:07 PM EDT [facility] Comment:This result was prev iously suppressed from the chart. Bacteria, Urine Negative Negative 01/04/2025 6:07 PM EDT [facility] Comment:This result was prev iously suppressed from the chart. Urine Urine specimen obtained by clean catch procedure / Unknown Non-blood Collection / Unknown 01/04/2025 2:32 PM EDT 01/04/2025 2:34 PM EDT Narrative [facility] - 01/04/2025 6:07 PM EDT Performed by manual method us Gerson Vance MD LAB URINE ORDERABLES Final Resul t [facility] [address] [place] [id number] * INJECTION FOR BLADDER XRAY WITHOUT VOIDING, OK COMPLEX CYSTOMETROGRAM W/VOID PRESS&URETHRAL PROFILE, UROLOGY UDS WITH BASE PERFORMABLE CHARGES (11/24/2024 9:57 AM EDT) Narrative Helene Pal APRN, DNP - 11/24/2024 9:57 AM EDT Helene Pal APRN, DNP 11/29/2024 11:25 AM UDS Date/Time: 11/24/2024 9:57 AM Performed by: Helene Pal APRN, DNP Authorized by: Helene Pal APRN, DNP [place] Protocol: Time out called immediately prior to procedure: yes Time out called at: 11/24/2024 9:57 AM Patient identity confirmed: Verbally with patient, provided demographic data and hospital-assigned identification number Correct site/side verified and marked: yes Correct patient positioning for procedure: yes Verified correct procedure: yes Essential imaging and labs available and reviewed: yes Procedure explained and questions answered to patient or proxy's satisfaction: yes Consent obtained: Verbal and written Consent given by: Patient Risks, benefits, and alternatives discussed: Yes Safety precautions reviewed?: yes Relevant documents present and verified: yes Required blood products, implants, devices, and special equipment available: no Procedure Details: CMG with UPP/voiding pressures Pelvic Examination Performed?: No Pessary Performed?: No Was bladder voided as part of this procedure?: Yes Fluoro Time (total seconds): 97 Fluoro Dose (Gy-cm2): 91.5 Position: Sitting Outcome: patient tolerated procedure well with no complications Post-procedure interventions: post-procedure instructions given us Helene Pal APRN, DNP UROLOGY ORDERABLES Final Result * POC Imaging (11/24/2024) Anatomical Region Laterality Modality Pelvis Other 11/24/2024 us External Provider IMG POINT OF CARE ULTRASOUND F inal Result * POC US Bladder Volume (11/24/2024) Urine, Volume 10 mL IMAGING Anatomical Region Laterality Modality Other Urine 11/24/2024 us Helene Pal APRN, DNP IMG POINT OF CARE ULTRAS OUND Final Result from Last 3 Months Insurance MEDICARE Care Teams Assistant Media Buyer Relationship Specialty Start Date End Date Ly Morales APRN [address] [place] [id number] PCP - General 12/29/22 Inocencia Hastings APRN, BETO [address] [facility] [address] [place] [address] Nurse Practitioner Neurosurgery 07/11/22
--- OUTSIDE RECORDS SUMMARY | 2025-02-03 09:50 | XMS_ITS | Encounter Summary ---
Author Organization Healthcare Address [address] [place] [address] Care Team Providers Care Quality Process Lead Name Role Phone Khadarluz elenaInocencia APRN, BETO Unavailable [phone]- [phone] Ly Morales APRN Primary Care Provider [phone]- [phone] Encounter Details Date Type Department Care Team (Latest Contact Info) Description 01/04/2025 Travel Social History Tobacco Use Types Packs/Day Years [...] Description 03/13/2025 9:00 AM EDT Office Visit [facility] [address] [place] [address] Helene Pal APRN, DNP [address] [place] [address] documented as of this encounter Visit Diagnoses Not on filedocumented in this encounter Additional Health Concerns Assessment Noted Time A fall risk assessment has been complete d for the patient 01/04/2025 1:51 PM EDT A Body Mass Index follow-up plan has been documented for the patient 11/29/2024 11:25 AM EDT documented as of this encounter Care Teams Quality Process Lead Relationship Specialty Start Date End Date yL Morales APRN [address] [place] [id number] PCP - General 12/29/22 Inocencia Hastings APRN, DNP [address] [facility] [address] [place] [address] Nurse Practitioner Neurosurgery 07/11/22 documented as of this encounter
--- OUTSIDE RECORDS SUMMARY | 2025-02-03 09:50 | XMS_ITS | Data Portability ---
Author Organization [facility] Address [address] [place] [address] Care Team Providers Care Distributor Sales Manager Name Role Phone YVES BLACKMAN Referring Provider [phone] ALEJANDRA CASTELLANO Primary Care Provider Assessment Encounter Date Assessment Date Assessment LastModified by Organization Details LastModified Time 07/12/2024 07/12/2024 -Medications were reviewed and any necessary updates and renewals were made, patient instructed to complete as prescribed. -The potential side effects of medications were discussed. -Counseling was done on care goals and ways to prevent future hospitalizatio ns. -Further treatment per orders listed below. jing Not available 07/14/2024 15:39:36 Plan of Treatment Reminders Order Date Submit Date Provider Last Modified By Organization Details Last Modified Time Details Appointments None recorded. Lab None recorded. Referral ENT surgery referral 2023 024 [facility], [address] [place] [address] [address], [place], [address], 4 09:34:58 Procedures None recorded. Surgeries None recorded. Imaging None recorded. Medication Orders cefdinir 300 mg capsule 2023 024 [facility], [address] [place] [address] [address] [place], [id number], 4 14:04:27 Debrox 6.5 % ear drops 2023 024 [facility], [address] [place] [address] [address], [place], [id number], 13:50:26 Patient TargetsNo targets recorded. Patient InstructionsNo instructions recorded. Reason for Referral ENT Surgery Referral for Imp acted cerumen of bilateral ears Referring Physician: Alejandra Castellano, Family Medicine, Encounter Date: 03/28/2024 Results Created Date Observation Date Name Description Value Unit Range Abnormal Flag Note LastModifiedBy Organization Detail LastModifiedTime 06/21/2006/21/2024 josé miguel metry No observ ation record ed. [facility] (Radiology) [address] [place] [address] [place], [address], 06/21/2024 16:48:12 06/22/20 24 06/22/2024 XR, foot, 3 or more view No observ ation record ed. [address], [place], [address], 06/23/2024 09:24:21 06/22/20 24 06/22/2024 XR, foot, 3 or more view No observ ation record ed. [address], [place], [address], 06/23/2024 09:24:06 06/22/20 24 06/22/2024 CT, angio gram, abdom en, w/ contr ast No observ ation record ed. [address], [place], [address], 06/23/2024 09:22:53 06/23/2006/22/2024 US, doppl er echoc ardio gram, w/ color flow No observ ation record ed. [address], [place], [address], 06/23/2024 09:20:28 06/23/20 24 06/23/2024 XR, chest No observ ation record ed. [facility] [address], [place], [address], 06/23/2024 11:42:07 06/27/20 24 06/22/2024 US, doppl er, venou s No observ ation record ed. [facility] [address], [place], [address], 06/30/2024 09:49:20 06/27/20 24 06/22/2024 arter ial study , lower extre mity, compl ete No observ ation record ed. [facility] [address], [place], [address], 06/30/2024 09:45:06 12/10/19 25 2024 XR, ankle , 3 or more view No observ ation record ed. [facility] [address], [place], [address], 2024 10:54:00 12/10/19 25 2024 XR, foot, 3 or more view No observ ation record ed. [facility] [address], [place], [address], 2024 14:33:54 Result Notes None recorded. Problems Name Problem SNOMED Code Status Onset Date Resolution Date Notes Provider Name and Address Organization Details Recorded Time Cellulit is 917255255 Completed 201603/09/2018 Candelaria falk, [place] - [facility] 8 14:49:31 Infectio n of toenail [id number] 011568 Completed 201603/09/2018 Candelaria falk, [place] - [facility] 8 14:49:39 Chest discomfo rt 293779898 Completed 201703/09/2018 TALHA Wiggins - [facility] 8 14:49:44 Anxiety 11406535 Active 2017 Alejandra PATRICIA mccall [address], [place], [address], [place] - [facility] 2 09:50:10 Lumbosac ral radiculo john 4111649 Active 2017 Clembrittany JAYLIN mccallN [address], [place], [address], [place] - [facility] 2 09:50:23 Infectio n of toe 658036077 Completed 201812/13/2020 Mir Javier MD [address], [place], [address], [place] - [facility] 1 15:25:15 Hyperten sive disorder 78942562 Active 2015 Clembrittany Castellano APRN [address], [place], [address], [place] - [facility] 2 09:50:17 Chronic back pain 673558381 Active 2015 Clembrittany Castellano APRN [address], [place], [address], [place] [facility] 2 09:50:08 Acid reflux 549302134 Active 2015 Clembrittany Castellano APRN [address], [place], [address], [place] [facility] 2 09:50:13 Injury of muscle of right foot 04156146128 179038 Completed 201912/13/2020 Mir Javier MD [address], [place], [address], [place] [facility] 1 15:25:09 Ingrowin g nail 317481775 Completed 201510/07/2016 Mir Javier MD [address], [place], [address], [place] [facility] 7 19:56:38 Cellulit is 566560226 Completed 201510/07/2016 Candelaria Willis [facility], [place] - [facility] 8 14:49:31 Superfic ial puncture wound 877981266 Completed 201912/13/2020 Mir Javier MD [address], [place], [address], [place] - [facility] 1 15:25:26 Suspecte d COVID-19 007020703 Completed 11/26/2020 Removal Reason: Problem added by user [email or web address] from the COVID-19 watch flag Angelika Serenity null, [place] - [facility] 1 10:15:17 Acute pharyngi tis 624496643 Completed 202010/17/2021 Mir Javier MD [address], [place], [address], [place] - [facility] 2 14:23:13 Suspecte d COVID-19 910407128 Completed 03/25/2021 Removal Reason: Problem marked historic al by user [email or web address] from the COVID-19 watch flag Angelika Serenity null, [place] - [facility] 1 10:15:17 Family history of diabetes mellitus 626042690 Active 2021 Mir Javier MD [address], [place], [address], [place] - [facility] 2 14:23:53 Dizzines s 205171155 Active 2021 Mir Javier MD [address], [place], [address], [place] [facility] 2 13:12:43 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 Alejandra Castellano APRN [address], [place], [address], [place] [facility] 4 09:16:00 Depressi ve disorder 06394462 Active 2022 Alejandra Castellano APRN [address], [place], [address], [place] [facility] 4 09:15:45 Gastroes ophageal reflux disease without esophagi tis 550301830 Active 2023 Alejandra Castellano APRN [address], [place], [address], [place] - [facility] 4 09:15:43 Impacted cerumen 09354617 Completed 201610/29/2016 TALHA Wiggins - [facility] 7 08:30:44 Urinary symptoms 169821911 Completed 201603/09/2018 TALHA Wiggins - [facility] 8 14:49:36 Problem Notes None recorded. Procedures Surgical History Date Name Laterality Status Provider Name and Address Organization Details Recorded Time 07/14/20 24 Medication Reconcilliation completed Maritza Loza [place] - [facility] 07/14/2024 15:39:36 03/28/20 24 Cerumen Removal completed Alejandra Castellano APRN [address], [place], [address], [facility] - [facility] 03/28/2024 16:37:10 02/28/20 23 Dexcom Placement completed Alejandra Castellano APRN [address], [place], [address], [facility] - [facility] 02/27/2023 17:04:30 02/28/20 23 [facility] 02/27/2023 16:18:27 07/12/20 20 Systolic B/P less than 130 mm Hg completed [facility] - [facility] 07/12/2020 13:30:58 07/12/20 20 Diastolic B/P 80-89 mm Hg completed [facility] 07/12/2020 13:31:00 03/21/20 20 Systolic B/P less than 130 mm Hg completed [facility] - [facility] 03/21/2020 08:25:39 03/21/20 20 Diastolic B/P 80-89 mm Hg completed [facility] - [facility] 03/21/2020 08:25:41 12/16/19 20 Systolic B/P less than 130 mm Hg completed [facility] - [facility] 12/16/2019 14:03:23 12/16/19 20 Diastolic B/P 80-89 mm Hg completed [facility] 12/16/2019 14:03:26 12/16/19 20 Medication Reconcilliation completed [facility] 12/16/2019 14:02:06 09/29/19 20 Diastolic B/P greater than or equal to 90 mm Hg completed [facility] 09/29/2019 09:09:16 09/29/19 20 Systolic B/P 130-139 mm Hg completed [facility] 09/29/2019 09:08:51 08/25/19 20 Diastolic B/P 80-89 mm Hg completed [facility] 08/25/2019 08:49:38 08/25/19 20 Systolic B/P greater than or equal to 140 mm Hg completed [facility] 08/25/2019 08:49:36 08/11/19 18 Back Surgery completed Savanna Powell [facility] 09/30/2018 14:31:35 07/01/20 17 Toenail Removal/Excision- permanent, partial or complete [facility] 07/01/2017 09:40:06 06/18/20 16 Toenail Removal/Excision- permanent, partial or complete completed Mir Javier MD [facility] [address], [address] - [facility] 06/21/2016 16:04:54 Appendectomy completed Candelaria Willis [facility] 06/10/2016 16:31:57 Tonsillectomy completed [facility] 06/10/2016 16:32:07 Knee arthroscopy/surger y completed Savanna Powell [facility] 09/30/2018 14:30:19 Imaging Results None recorded. Procedure Notes None recorded. Medical Equipment None Reported. Allergies Allergen ID Allergen Name Allergen Category Reaction Reaction Severity Criticality Documentation Date Start Date Code Code System Note Provider Name and Address Organization Details Recorded Time 436406 tizanidin e medicatio n Not available Not available Not available 08/22/2021 90761 RxNorm confu maria r falk [facility] 2 10:34:24 44915 Product containin g penicilli n (product) medicatio n Not available Not available Not available 05/16/20162014 63463 8001 SNOMED React ion: hives short ness of breat h; Not Available [facility] 6 10:39:07 Medications Name Sig Start Date Stop Date Status Note LastModified by Organization Details LastModified Time Prescript ion - Renewal 11/26 completed Not Available Not Available Not Available amantadin e HCl 100 mg tablet 02/27 completed Not Available Not Available Not Available cyclobenz aprine 10 mg tablet TAKE ONE TABLET BY MOUTH THREE TIMES DAILY MAY CAUSE DROWSINE SS 03/21 completed Not Available Not Available Not Available buspirone 5 mg tablet TAKE ONE TABLET BY MOUTH THREE TIMES DAILY DIRECTED 03/28 completed Not Available Not Available Not Available doxepin 50 mg capsule TAKE 1 TO 2 CAPSULE( S) BY MOUTH EVERY NIGHT AT BEDTIME DIRECTED active Not Available Not Available No t Available oxcarbaze pine 150 mg tablet TAKE ONE TABLET BY MOUTH TWICE DAILY DIRECTED active Not Available Not Available No t Available doxycycli ne hyclate 100 mg capsule Take 1 capsule twice a day by oral route as directed for 10 days. 05/16 completed Not Available Not Available Not Available clindamyc in HCl 300 mg capsule 07/12 completed Not Available Not Available Not Available oxybutyni n chloride ER 10 mg tablet,ex tended release 24 hr TAKE ONE TABLET BY MOUTH EVERY DAY 2024 active Not Available Not Available Not Avai lable azithromy jose luis 250 mg tablet TAKE 2 TABLETS BY MOUTH ON DAY 1, THEN TAKE 1 TABLET DAILY ON DAYS 2-5 07/12 completed Not Available Not Available Not Available aspirin 325 mg tablet take 1 tablet by oral route daily 09/30 completed aspirin 325 mg oral tablet;R ecorded Status: Recorded on: 04/12/20 15 2:14PM;U ser: [email or web address] Not Available Not Available Not Available tizanidin e 4 mg tablet TAKE ONE TABLET BY MOUTH THREE TIMES DAILY MAY CAUSE DROWSINE SS 05/16 completed Not Available Not Available Not Available doxepin 25 mg capsule TAKE 1 TO 2 CAPSULE( S) BY MOUTH EVERY DAY AT BEDTIME DIRECTED active Not Available Not Available No t Available chlorzoxa zone 500 mg tablet TAKE ONE TABLET BY MOUTH THREE TIMES DAILY MAY CAUSE DROWSINE SS 05/07 completed Not Available Not Available Not Available hydrocodo ne 5 mg-acetam inophen 325 mg tablet Take 1 tablet 3 times a day by oral route as needed. 03/21 completed Not Available Not Available Not Available Celestone Soluspan 6 mg/mL suspensio n for injection Take 9 mg by injectio n route. 01/13 completed Not Available Not Available Not Available ondansetr on HCl 4 mg tablet 05/16 completed Not Available Not Available Not Available famotidin e 40 mg tablet TAKE ONE TABLET BY MOUTH EVERY DAY 2024 active Not Available Not Available Not Avai lable prednison e 20 mg tablet TAKE ONE TABLET BY MOUTH TWICE DAILY --TAKE WITH FOOD-- 08/07 completed Not Available Not Available Not Available fluoxetin e 10 mg tablet 06/03 completed Not Available Not Available Not Available gabapenti n 400 mg capsule Take 1 capsule 4 times a day by oral route as directed . 03/21 completed Not Available Not Available Not Available prednison e 5 mg tablet 03/21 completed Not Available Not Available Not Available Debrox 6.5 % ear drops INSTILL 5 DROPS INTO BOTH EARS FOR 5 DAYS EACH MONTH 06/21 completed Not Available Not Available Not Available atenolol 25 mg tablet TAKE ONE TABLET BY MOUTH EVERY DAY 11/05 completed Not Available Not Available Not Available Tylenol Arthritis Pain 650 mg tablet,ex tended release Take 2 tablets every 8 hours by oral route. 02/27 completed Not Available Not Available Not Available amlodipin e 2.5 mg tablet TAKE ONE TABLET BY MOUTH EVERY DAY active Not Available Not Available No t Available doxepin 10 mg capsule TAKE 1 TO 2 CAPSULE( S) BY MOUTH EVERY DAY AT BEDTIME DIRECTED 03/28 completed Not Available Not Available Not Available sulfameth oxazole 800 mg-trimet hoprim 160 mg tablet TAKE ONE TABLET BY MOUTH TWICE DAILY FOR 7 DAYS 06/21 completed Not Available Not Available Not Available omeprazol e 40 mg capsule,d elayed release TAKE ONE CAPSULE BY MOUTH EVERY DAY 09/04 completed Not Available Not Available Not Available aspirin 81 mg tablet,de layed release 05/16 completed Not Available Not Available Not Available tramadol 50 mg tablet TAKE 1 TABLET BY MOUTH THREE TIMES DAILY NEEDED FOR PAIN active Not Available Not Available No t Available quetiapin e 100 mg tablet TAKE ONE TABLET BY MOUTH EVERY NIGHT DIRECTED active Not Available Not Available No t Available acetamino phen 500 mg tablet 05/16 completed Not Available Not Available Not Available ondansetr on 8 mg disintegr ating tablet DISSOLVE ONE TABLET in MOUTH THREE TIMES DAILY NEEDED FOR NAUSEA AND VOMITING 11/26 completed Not Available Not Available Not Available oxycodone -acetamin ophen 5 mg-325 mg tablet 09/30 completed Not Available Not Available Not Available alprazola m 0.5 mg tablet TAKE ONE TABLET BY MOUTH TWICE DAILY NEEDED FOR ANXIETY MAY CAUSE DROWSINE SS 02/27 completed Not Available Not Available Not Available amitripty line 25 mg tablet TAKE ONE TABLET BY MOUTH EVERY DAY 04/03 completed Not Available Not Available Not Available DOK 100 mg capsule 09/30 completed Not Available Not Available Not Available tamsulosi n 0.4 mg capsule TAKE ONE CAPSULE BY MOUTH EVERY DAY 2024 active Not Available Not Available Not Avai lable amitripty line 10 mg tablet TAKE ONE TABLET BY MOUTH EVERY DAY 11/05 completed Not Available Not Available Not Available baclofen 10 mg tablet TAKE ONE TABLET BY MOUTH THREE TIMES DAILY MAY CAUSE DROWSINE SS active Not Available Not Available No t Available benzonata te 100 mg capsule Take 1 capsule 3 times a day by oral route as directed for 10 days. 08/25 completed Not Available Not Available Not Available doxycycli ne monohydra te 100 mg capsule TAKE ONE CAPSULE BY MOUTH TWICE DAILY FOR 7 DAYS -- FINISH ALL MEDICINE -- 10/14 completed Not Available Not Available Not Available cephalexi n 500 mg capsule TAKE ONE CAPSULE BY MOUTH TWICE DAILY DIRECTED FOR 10 DAYS -- FINISH ALL MEDICINE -- 03/28 completed Not Available Not Available Not Available pantopraz ole 40 mg tablet,de layed release TAKE ONE TABLET BY MOUTH TWICE DAILY 2024 active Not Available Not Available Not Avai lable Cristina-D 12 Hour 60 mg-120 mg tablet,ex tended release TAKE ONE TABLET BY MOUTH TWICE DAILY 05/16 completed Not Available Not Available Not Available lisinopri l 10 mg tablet TAKE ONE TABLET BY MOUTH TWICE DAILY FOR hyperten maria r 11/05 completed Not Available Not Available Not Available promethaz ine 25 mg tablet TAKE ONE TABLET BY MOUTH EVERY 6 HOURS NEEDED FOR NAUSEA AND VOMITING FOR UP TO 7 DAYS MAY CAUSE DROWSINE 04/03 completed Not Available Not Available Not Available fluoxetin e 10 mg capsule take 1 capsule by oral route daily for 30 days 08/24 completed fluoxeti ne 10 mg oral capsule; Prescrib e Status: Prescrib ed on: 06/25/20 11:42AM; User: [email or web address] ;Est. Olgai on: 08/24/19 16;Pharm acyVerif ied: 06/25/20 11:42AM Not Available Not Available Not Available gabapenti n 300 mg capsule TAKE ONE CAPSULE BY MOUTH FOUR TIMES DAILY MAY CAUSE DROWSINE 03/21 completed Not Available Not Available Not Available omeprazol e 20 mg capsule,d elayed release TAKE ONE CAPSULE BY MOUTH EVERY DAY 12/13 completed Not Available Not Available Not Available diclofena c sodium 75 mg tablet,de layed release TAKE ONE TABLET BY MOUTH TWICE DAILY --TAKE WITH FOOD-- 02/27 completed Not Available Not Available Not Available mupirocin 2 % topical ointment apply a SMALL AMOUNT of ointment TO THE affected area(s) topicall y THREE TIMES DAILY DIRECTED -- FOR EXTERNAL USE ONLY-- 05/07 completed Not Available Not Available Not Available gabapenti n 100 mg capsule TAKE ONE CAPSULE BY MOUTH TWICE DAILY MAY CAUSE DROWSINE 02/27 completed Not Available Not Available Not Available metoprolo l succinate ER 25 mg tablet,ex tended release 24 hr TAKE ONE TABLET BY MOUTH IN THE MORNING AND TAKE TWO TABLETS AT BEDTIME active Not Available Not Available No t Available clobetaso l 0.05 % topical ointment apply a thin layer TO THE affected AREA topicall y 2-3 times PER DAY as needed FOR ITCHING active Not Available Not Available No t Available azelastin e 137 mcg (0.1 %) nasal spray INSTILL 2 SPRAYS IN EACH NOSTRIL TWICE DAILY active Not Available Not Available No t Available prednison e 5 mg tablets in a dose pack Take 1 dose pk every day by oral route as directed . 03/21 completed Not Available Not Available Not Available ibuprofen 600 mg tablet TAKE ONE TABLET BY MOUTH THREE TIMES DAILY NEEDED --TAKE WITH FOOD-- 05/16 completed Not Available Not Available Not Available polyethyl madeline glycol 3350 17 gram/dose oral powder DISSOLVE 17 GRAMS OF POWDER INTO 4 TO 8 OUNCES OF WATER, JUICE, SODA, COFFEE, OR TEA THEN DRINK EVERY DAY 11/05 completed Not Available Not Available Not Available methylpre dnisolone 4 mg tablets in a dose pack TAKE ACCORDIN G TO PACKAGE INSTRUCT IONS --TAKE WITH FOOD-- -- FINISH ALL MEDICINE -- active Not Available Not Available No t Available celecoxib 100 mg capsule TAKE ONE CAPSULE BY MOUTH TWICE DAILY active Not Available Not Available No t Available ketoconaz ole 2 % topical cream APPLY TOPICALL Y TO THE AFFECTED AREA(S) TWICE DAILY DIRECTED active Not Available Not Available No t Available brompheni ramine-ps eudoephed rine-DM 2 mg-30 mg-10 mg/5 mL oral syrup Take 10 mL every 4 hours by oral route as directed for 5 days. 08/25 completed Not Available Not Available Not Available ondansetr on 4 mg disintegr ating tablet DISSOLVE ONE TABLET BY MOUTH EVERY 8 HOURS NEEDED FOR NAUSEA AND VOMITING 11/05 completed Not Available Not Available Not Available cefdinir 300 mg capsule TAKE ONE CAPSULE BY MOUTH EVERY TWELVE HOURS FOR 10 DAYS -- FINISH ALL MEDICINE -- 06/21 completed Not Available Not Available Not Available buspirone 15 mg tablet TAKE ONE TABLET BY MOUTH THREE TIMES DAILY DIRECTED active Not Available Not Available No t Available Bactrim 400 mg-80 mg tablet Take 2 tablets every 12 hours by oral route as directed for 10 days. 09/30 completed Not Available Not Available Not Available Asprin Ec Low Dose 81 mg tablet,de layed release Take 1 tablet every day by oral route. 03/09 completed Not Available Not Available Not Available cyclobenz aprine 5 mg tablet Take 1 tablet every 6-8 hours by oral route as directed . 10/13 completed Not Available Not Available Not Available clobetaso l 0.05 % shampoo apply a thin layer topicall y ONCE daily TO DRY SCALP. LEAVE in place FOR 15 minutes THEN lather AND RINSE as directed active Not Available Not Available No t Available duloxetin e 20 mg capsule,d elayed release TAKE ONE CAPSULE BY MOUTH EVERY EVENING DIRECTED 03/28 completed Not Available Not Available Not Available duloxetin e 30 mg capsule,d elayed release TAKE THREE CAPSULES BY MOUTH EVERY DAY IN THE MORNING DIRECTED 10/14 completed Not Available Not Available Not Available duloxetin e 60 mg capsule,d elayed release TAKE ONE CAPSULE BY MOUTH TWICE DAILY DIRECTED active Not Available Not Available No t Available Voltaren one bid 03/15 completed voltaren 75 mg.;Marty rded Status: Recorded on: 12/06/19 16 8:29AM;U ser: [email or web address]; Est. Completi on: 03/15/20 16;Indic ation: back - (-5) Not Available Not Available Not Available Cipro one bid 05/18 completed cipro 500 mg.;Marty rded Status: Recorded on: 04/15/20 15 2:15PM;D iscontin ued Status: Disconti nued on: 05/18/20 15 4:08PM;U ser: joyce Est. Completi on: 04/30/20 15;Indic ation: stone - (-5) Not Available Not Available Not Available Prednison e (Sam) as directed 08/14 completed predniso ne dospkg 5 mg.;Marty rded Status: Recorded on: 07/22/20 15 7:32PM;D iscontin ued Status: Disconti nued on: 08/14/19 16 12:19PM; User: joyce Est. Completi on: 07/28/20 15;Indic ation: back - (-5) Not Available Not Available Not Available tramadol one tid prn 01/30 completed tramadol 50 mg.;Marty rded Status: Recorded on: 12/06/19 16 8:29AM;U ser: rell; Est. Completi on: 01/31/20 16;Indic ation: pain - (-5) Not Available Not Available Not Available lisinopri l one daily 01/13 completed lisonipr il 10 mg.;Marty rded Status: Recorded on: 12/06/19 16 8:26AM;U ser: rell; Est. Completi on: 03/05/20 16 Not Available Not Available Not Available Parafon Forte DSC one tid prn 01/26 completed parafon dsc 500 mg.;Marty rded Status: Recorded on: 12/06/19 16 8:29AM;U ser: rell; Est. Completi on: 01/27/20 16;Indic ation: back - (-5) Not Available Not Available Not Available Hydrocodo ne one q 4 hrs prn 05/18 completed hydrocod one 7.5 mg.;Marty rded Status: Recorded on: 04/15/20 15 2:15PM;D iscontin ued Status: Disconti nued on: 05/18/20 15 4:08PM;U ser: rell; Est. Completi on: 04/21/20 15;Indic ation: pain - (-5) Not Available Not Available Not Available Doxycycli ne one bid 07/22 completed doxecycl ine 100 mg.;Marty rded Status: Recorded on: 07/04/20 15 11:08AM; Disconti nued Status: Disconti nued on: 07/22/20 15 7:32PM;U ser: rell; Est. Completi on: 07/14/20 15;Indic ation: ureth - (-5) Not Available Not Available Not Available diclofena c 1 % topical gel APPLY TOPICALL Y TO THE AFFECTED AREA(S) 4 grams FOUR TIMES DAILY NEEDED FOR PAIN DIRECTED active Not Available Not Available No t Available Senexon-S 8.6 mg-50 mg tablet 05/16 completed Not Available Not Available Not Available Xarelto 20 mg tablet TAKE ONE TABLET BY MOUTH IN THE EVENING WITH MEAL active Not Available Not Available No t Available Cough DM ER 30 mg/5 mL oral suspensio n,extende d release take 10 ML BY MOUTH TWICE DAILY 05/16 completed Not Available Not Available Not Available Multi Vitamin Take 1 tablet po daily active Not Available Not Available No t Available Farxiga 5 mg tablet TAKE ONE TABLET BY MOUTH EVERY DAY active Not Available Not Available No t Available Entresto 49 mg-51 mg tablet TAKE ONE TABLET BY MOUTH TWICE DAILY active Not Available Not Available No t Available Entresto 24 mg-26 mg tablet TAKE ONE TABLET BY MOUTH TWICE DAILY 11/05 completed Not Available Not Available Not Available Melatin 3 mg tablet Take 1 tablet every day by oral route at bedtime. 10/29 completed Not Available Not Available Not Available baclofen 5 mg tablet TAKE ONE TABLET BY MOUTH THREE TIMES DAILY NEEDED FOR PAIN MAY CAUSE DROWSINE SS 11/05 completed Not Available Not Available Not Available [facility] COVID-19 Antigen Home Test kit TEST DIRECTED TODAY 02/27 completed Not Available Not Available Not Available Vitals Date Recorded Body height Body mass index (BMI) Body weight Heart rate Oxygen saturation Oxygen saturation in Arterial blood by Pulse oximetry Respiratory rate Body temperature Systolic blood pressure Diastolic blood pressure Provider Name and Address Organization Details Last Updated DateTime 5 185.42 cm 35.9 kg/m2 837208. 12 g 106 /min 96 % 96 % 18 /min 97.9 [degF] 114 mm[Hg] 76 mm[Hg] Jenni Stears [place] - [facility] 5 10:19:00 Date Recorded Body height Respiratory rate Body mass index (BMI) Body weight Oxygen saturation Oxygen saturation in Arterial blood by Pulse oximetry Heart rate Body temperature Systolic blood pressure Diastolic blood pressure Provider Name and Address Organization Details Last Updated DateTime 4 185.42 cm 18 /min 34.3 kg/m2 117020. 02 g 96 % 96 % 86 /min 98 [degF] 120 mm[Hg] 78 mm[Hg] Jenni Stears [place] - [facility] 4 15:03:31 Date Recorded Body height Provider Name an d Address Organization Details Last Updated DateTime 04/15/2024 185.42 cm Maritza Dago [place] - [facility] 0 04/15/2024 14:29:46 Date Recorded Body mass index (BMI) Body weight Body temperature Heart rate Oxygen saturation Oxygen saturation in Arterial blood by Pulse oximetry Respiratory rate Systolic blood pressure Diastolic blood pressure Provider Name and Address Organization Details Last Updated DateTime 4 34.7 kg/m2 370798. 19 g 97.5 [degF] 74 /min 98 % 98 % 18 /min 136 mm[Hg] 86 mm[Hg] Maritza Loza [place] - [facility] 4 13:48:14 Date Recorded Body height Provider Name an d Address Organization Details Last Updated DateTime 06/21/2024 185.42 cm Jenni Drake [place] - [facility] 06/21 13:36:19 Date Recorded Body height Body mass index (BMI) Body weight Body temperature Heart rate Oxygen saturation Oxygen saturation in Arterial blood by Pulse oximetry Respiratory rate Systolic blood pressure Diastolic blood pressure Provider Name and Address Organization Details Last Updated DateTime 4 185.42 cm 35.2 kg/m2 557828. 16 g 98.3 [degF] 87 /min 98 % 98 % 18 /min 116 mm[Hg] 80 mm[Hg] Maritza Loza [place] - [facility] 4 15:40:35 Social History Question Answer Notes LastModified by Organizat ion Details LastModified Time Tobacco Smoking Status Never Smoker [facility] 16:31:45 Able To Swim? Yes Information not available 05/22/2022 Do You Have An Advance Directive? No [email or web address] Information not available 02/17/2017 Do You Wear A Helmet When Biking? No Information not available 05/22/2022 Are You Blind Or Do You Have Difficulty Seeing? No Information not available 05/22/2022 Is Blood Transfusion Acceptable In An Emergency? Yes Information not available 05/22/2022 What Is Your Level Of Caffeine Consumption? Moderate [email or web address] Information not available 02/17/2017 How Much Tobacco Do You Chew? None Information not available 05/22/2022 In The 14 Days Before Symptom Onset, Have You Had Close Contact With A Laboratory-confir med COVID-19 While That Case Was Ill? No Information not available 03/09/2023 In The 14 Days Before Symptom Onset, Have You Had Close Contact With A Person Who Is Under Investigation For COVID-19 While That Person Was Ill? No Information not available 03/09/2023 Have You Been To An Area Known To Be High Risk For COVID-19? No Information not available 03/09/2023 Are You Deaf Or Do You Have Serious Difficulty Hearing? No [email or web address] Information not available 02/17/2017 What Type Of Diet Are You Following? REGULAR Information not available 05/22/2022 Which Illicit Or Recreational Drugs Have You Used? No [email or web address] Information not available 02/17/2017 Have You Processed Blood Or Body Fluids From An Ebola Virus Disease Patient Without Appropriate PPE? No Information not available 03/09/2023 Do You Reside In Or Have You Traveled To An Area Where Ebola Virus Transmission Is Active? No Information not available 03/09/2023 What Is The Highest Grade Or Level Of School You Have Completed Or The Highest Degree You Have Received? [id number] Information not available 05/22/2022 Swimming/diving Yes Informati on not available 05/22/2022 Have There Been Any Changes To Your Family Or Social Situation? No Information no t available 05/22/2022 What Is The Fluoride Status Of Your Home? Unknown Information not available 05/22/2022 Hard Of Hearing Or Deaf In One Or Both Ears? No Information not available 05/22/2022 Have You Recently Or Are You Planning To Travel To An Area With Zika Virus? No Information not available 03/09/2023 Legally Blind In One Or Both Eyes? No Information no t available 05/22/2022 Live Alone Or With Others? With Others Information not available 05/22/2022 Do You Have A Medical Power Of Home Energy Inspector? No Information not available 05/22/2022 What Was The Date Of Your Most Recent Tobacco Screening? 10/14/2024 Information not available 10/14/2024 How Many Children Do You Have? 2 Information not available 05/22/2022 Do You Use Protection During Sex? No [email or web address] Information not available 02/17/2017 Do You Use Protection Against STDs? No Information not available 05/22/2022 What Is Your Relationship Status? [email or web address] Information not available 02/17/2017 Seat Belts Used Routinely Yes Information not available 05/22/2022 Are You Sexually Active? No Information not available 05/22/2022 Smoke Alarm In Home Yes Information not available 05/22/2022 Do You Have Smoke And Carbon Monoxide Detectors In Your Home? Yes Information not available 05/22/2022 Are You Passively Exposed To Smoke? No Information no t available 05/22/2022 How Much Tobacco Do You Smoke? No Information not available 05/22/2022 General Stress Level Medium Information not available 05/22/2022 Do You Use Sunscreen Routinely? No [email or web address] Information not available 02/17/2017 Has Tobacco Cessation Counseling Been Provided? No Information not available 11/17/2022 On What Date Was Tobacco Cessation Counseling Provided? 07/14/2022 Non Smoker Information not available 07/14/2022 Do You Have Difficulty Walking Or Climbing Stairs? No Information not available 05/22/2022 Sex: Male Functional Status Question Answer Note LastModified by [employer] Details LastModified Time Do you or have you ever used smokeless tobacco? Never used smokeless tobacco Information not available 09/29/2019 Are you currently employed? Yes [email or web address] Information not available 02/17/2017 Do you have transportation difficulties? No Information not available 05/22/2022 Are you able to care for yourself? Yes [email or web address] Information n ot available 02/17/2017 Do you have difficulty dressing or bathing? No Information not available 05/22/2022 Do you or have you ever used e-cigarettes or vape? Never used electronic cigarettes [email or web address] Information not available 09/29/2019 What is your exercise level? Occasional [email or web address] Information not available 02/17/2017 Do you use any illicit or recreational drugs? No Information not available 05/22/2022 Do you or have you ever used any other forms of tobacco or nicotine? No Information not available 05/22/2022 What is your level of alcohol consumption? None [email or web address] Information not available 02/17/2017 Are you able to walk? [email or web address] Information not available 05/22/2022 Do you have difficulty doing errands alone? 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 [id number] Information not available 05/22/2022 Do you have difficulty concentrating, remembering or making decisions? No Information no t available 05/22/2022 Family History Relationship Description Onset Age of this Age Resolved Age Notes LastModified by Organization Details LastModified Time Paternal Grandfather Malignant tumor of pancreas Not available 04/27 11:12:55 Mother Degeneration of lumbar intervertebr al disc [email or web address] Not available 04/27 11:13:15 Maternal Grandfather Carcinoma of prostate Not available 04/27 11:13:43 Medical History Condition Response Degenerative Disc Disease Y Acid Reflux (GERD) Y Hypertension Y Immunizations Vaccine Type Date Status Note Provider Nam e and Address Organization Details Recorded Time Hep A, ped/adol, 2 dose 3 completed Alejandra Castellano APRN [address], [place], [address], [place] - [facility] 10/16/2022 10:58:00 Hep B, adult 3 completed Alejandra Castellano APRN [address], [place], [address], [place] [facility] 10/16/2022 10:58:00 Pneumococcal conjugate PCV20, polysaccharide QQA035 conjugate, adjuvant, PF 3 completed Alejandra Castellano APRN [address], [address], [place] [facility] 10/16/2022 10:58:00 Influenza, split virus, quadrivalent, preservative 3 completed Maritza [place]za [place], [place] - [facility] 05/19/2023 15:11:30 Influenza, split virus, trivalent, preservative 4 completed Mar[place] [facility] 04/15/2024 14:32:22 [facility], adult 8 completed [facility] Available [facility] 03:55:36 Hep B, adolescent or pediatric 1 completed Jenni Stears null, [place] - [facility] 06/10/2022 17:40:30 Tdap 2 completed Jenni Stears null, [facility] 06/10/2022 17:40:30 Influenza, split virus, quadrivalent, preservative 5 completed Jenni Stears null, [facility] 06/10/2022 17:40:30 Influenza, split virus, quadrivalent, preservative 7 completed Jenni Stears null, [facility] 06/10/2022 17:40:30 COVID-19, mRNA, LNP-S, PF, 100 mcg/0.5mL dose or 50 mcg/0.25mL dose 1 completed Jenni Stears null, [facility] 06/10/2022 17:40:30 COVID-19, mRNA, LNP-S, PF, 100 mcg/0.5mL dose or 50 mcg/0.25mL dose 1 completed Jenni Stears null, [facility] 06/10/2022 17:40:30 Influenza, split virus, quadrivalent, PF 6 completed Jenni Stears null, [facility] 06/10/2022 17:40:30 Influenza, split virus, quadrivalent, preservative 9 completed Jenni Stears null, [facility] 06/10/2022 17:40:31 Influenza, split virus, quadrivalent, preservative 2 completed Jenni Stears null, [facility] 06/10/2022 17:40:31 Influenza, split virus, quadrivalent, preservative 0 completed Jenni Stears null, [facility] 06/10/2022 17:40:31 pneumococcal polysaccharide PPV23 0 completed Jenni Stears null, [facility] 06/10/2022 17:40:31 Influenza, split virus, quadrivalent, preservative 8 completed Jenni Stears null, [facility] 06/10/2022 17:40:31 Td (adult), 2 Lf tetanus toxoid, preservative free, adsorbed 5 completed Jenni Vidal null, [place] - [facility] 06/10/2022 17:40:31 Influenza, split virus, trivalent, PF 0 completed Marit[place] - [facility] 11/17/2022 14:44:56 COVID-19, mRNA, LNP-S, bivalent, PF, 50 mcg/0.5 mL or 25mcg/0.25 mL dose 3 completed Jenn[place] - [facility] 03/27/2023 09:20:19 Past Encounters Encounter ID Performer Location Encounter Start Date Encounter Closed Date Diagnosis/Indication Diagnosis SNOMED-CT Code Diagnosis ICD10 Code Diagnosis Note [id number] Mir Javier MD [address] [place] [address] 06/10/2016 15:57:26 06/10/2016 16:47:05 Influenza vaccine needed 4894878116 106 Z23 Cellulitis 307040932 L03 .90 Ingrowing nail 947512653 L60.0 Chronic back pain 605101 002 M54.10 Hypertensive disorder 38 485077 I10 [id number] Mir Javier MD [address] [place] [address] 06/18/2016 14:21:53 06/23/2016 14:29:10 Ingrowing nail 254867303 L60.0 [id number] Mir Javier MD [address] [place] [address] 10/07/2016 09:09:48 10/07/2016 10:57:25 Hypertensive disorder 11603052 I10 Chronic back pain 737255 002 M54.10 Renewal of prescription 122701824 Z76.0 Impacted cerumen 7865543 6 H61.23 Acid reflux 375384676 K2 1.9 [id number] Mir Javier MD [address] [place] [address] 10/29/2016 08:20:51 10/29/2016 16:56:10 Hypertensive disorder 82171555 I10 Chronic back pain 563317 002 M54.10 Hyperlipid emia screening 439001831 Z13.700 [id number] Mir Javier MD [address] [place] [address] 12/04/2016 08:09:34 12/04/2016 09:15:43 Hypertensive disorder 50557229 I10 Chronic back pain 778379 002 M54.10 Renewal of prescription 212614928 Z76.0 Body mass index 25-29 - overweight 315923262 Z68.29 Acid reflux 574313724 K2 1.9 [id number] Mir Javier MD [address] [place] [address] 01/01/2017 08:14:47 01/02/2017 08:05:00 Acute urinary tract infection 497681974 N39.0 Exposure t o sexually transmissible disorder 369630142 Z20.2 Acid reflux 448245048 K2 1.9 Chronic back pain 476275 002 M54.10 Hypertensive disorder 38 773177 I10 Urinary symptoms 4817004 08 R39.9 [id number] Mir Javier MD [address] [place] [address] 02/17/2017 08:17:07 02/17/2017 09:21:51 Chronic back pain 080380570 M54.10 Urinary symptoms 8506177 08 R39.9 Acid reflux 977840675 K2 1.9 Hypertensive disorder 38 340581 I10 [id number] Mir Javier MD [address] [place] [address] 04/02/2017 08:39:58 04/02/2017 09:36:20 Chronic back pain 062713625 M54.10 Hypertensive disorder 38 973142 I10 Body mass index 25-29 - overweight 656704220 Z68.29 Acid reflux 978674935 K2 1.9 [id number] Mir Javier MD [address] [place] [address] 06/03/2017 08:14:45 06/03/2017 09:41:29 Chronic back pain 629845839 M54.10 Ingrowing toenail 560256 009 L60.0 Administra tion of influenza vaccine 67575837 Z23 Hypertensive disorder 38 851777 I10 Cellulitis 221535854 L03 .90 [id number] Mir Javier MD [address] [address] 07/01/2017 08:16:48 07/01/2017 09:50:01 Ingrowing toenail 446233059 L60.0 Cellulitis 300331513 L03 .90 Chronic back pain 303018 002 M54.10 Hypertensive disorder 38 346928 I10 Infection of toenail 026 1907828 7673396 B99.9 [id number] Mir Javier MD [address] [place] [address] 09/30/2017 09:44:22 09/30/2017 10:28:09 Hypertensive disorder 88035476 I10 [id number] Mir Javier MD [address] [place] [address] 10/29/2017 15:00:38 10/29/2017 16:31:50 Hypertensive disorder 21005661 I10 Chronic back pain 480766 002 M54.10 Chest discomfort 4166523 09 R07.89 Anxiety 53867027 F41.9 [id number] Mir Javier MD [address] [facility] [place] [address] 11/12/2017 14:39:54 11/12/2017 16:51:02 Anxiety 63962623 F41.9 Tachycardia 0021725 R00. 0 Chest discomfort 0611283 09 R07.89 Chronic back pain 865277 002 M54.10 Hypertensive disorder 38 163496 I10 [id number] Mir Javier MD [address] [place] [address] 12/30/2017 13:32:41 12/30/2017 15:28:58 Hypertensive disorder 48434079 I10 Body mass index 25-29 - overweight 768670377 Z68.29 Overweight 319564582 E66 .3 Chronic back pain 356273 002 M54.10 Anxiety 61143866 F41.9 [id number] Mir Javier MD [address] [place] [address] 03/09/2018 13:52:19 03/09/2018 14:54:41 Hypertensive disorder 24651936 I10 Chronic back pain 817469 002 M54.10 Acid reflux 220961856 K2 1.9 Anxiety 18677641 F41.9 [id number] Mir Javier MD [address] [place] [address] 04/21/2018 15:59:39 04/21/2018 18:12:02 Chronic back pain 644567436 M54.10 Body mass index 25-29 - overweight 621411473 Z68.29 Overweight 522486458 E66 .3 Anxiety 36041972 F41.9 Hypertensive disorder 38 459264 I10 [id number] Mir Javier MD [address] [place] [address] 05/13/2018 14:38:24 05/13/2018 17:45:49 Chronic back pain 279767812 M54.10 Administra tion of influenza vaccine 43367865 Z23 Hypertensive disorder 38 931542 I10 Acid reflux 762036975 K2 1.9 [id number] Mir Javier MD [address] [place] [address] 06/01/2018 13:28:54 06/01/2018 15:22:18 Chronic back pain 154725920 M54.10 Hypertensive disorder 38 517297 I10 Acid reflux 033303221 K2 1.9 Anxiety 36858687 F41.9 Radicular pain 90955030 M54.10 Pain in ri ght lower limb 014793599 M79.000 [id number] Mir Javier MD [address] [place] [address] 06/30/2018 09:21:42 06/30/2018 10:43:17 Chronic back pain 139538728 M54.10 Anxiety 56977505 F41.9 Acid reflux 095441735 K2 1.9 Hypertensive disorder 38 549234 I10 [id number] Mir Javier MD [address] [place] [address] 07/27/2018 12:23:04 07/27/2018 15:31:41 Chronic back pain 930071756 M54.10 Lumbosacra l radiculopathy 5825095 M54.16 Hypertensive disorder 38 431046 I10 Active or passive immunization 839559465 Z23 Anxiety 77615509 F41.9 Acid reflux 126880784 K2 1.9 [id number] Shi Cavazos [address] [place] [address] 08/11/2018 13:19:24 08/11/2018 14:16:04 Chronic back pain 531959610 M54.16 [id number] Krystal Welsh [address] [place] [address] 09/30/2018 14:07:49 09/30/2018 15:22:54 Chronic back pain 046425129 G89.29 Pain of hip region 82333 002 M25.466 [id number] Mir Javier MD [address] [place] [address] 10/13/2018 14:44:45 10/13/2018 16:07:06 Hypertensive disorder 98813790 I10 Chronic back pain 680822 002 M54.10 Anxiety 00474605 F41.9 Acid reflux 784600991 K2 1.9 Renewal of prescription 267177593 Z76.0 Flank pain 615290954 R10 .9 Pain of to e of left foot 2006256704 94761 M79.675 Cellulitis of toe 549598 04 L03.032 Urinary tr act infectious disease 49727545 N39.0 Lumbosacra l radiculopathy 0015071 M54.16 [id number] Mir Javier MD [address] [place] [address] 10/20/2018 14:48:32 10/20/2018 16:00:32 Pharyngitis 879174947 J02.9 Upper resp iratory infection 02196483 J06.9 Lumbosacra l radiculopathy 3779316 M54.16 Anxiety 48919591 F41.9 Acid reflux 171203784 K2 1.9 Chronic back pain 853387 002 M54.10 Hypertensive disorder 38 343895 I10 Cellulitis of toe 135335 04 L03.032 Lymphadenitis 74147081 I 88.9 [id number] Mir Javier MD [facility] [address] [place] [address] [place] [address] 11/02/2018 13:50:33 11/02/2018 15:09:01 Infection of toe 746440043 L08.9 Anxiety 79204108 F41.9 Acid reflux 250060675 K2 1.9 Chronic back pain 713308 002 M54.10 Hypertensive disorder 38 974848 I10 Urinary tr act infectious disease 68383856 N39.0 [id number] Mir Javier MD [address] [place] [address] 11/24/2018 14:01:40 11/24/2018 14:37:03 Infection of toe 417132123 L08.9 Lumbosacra l radiculopathy 8349385 M54.16 Anxiety 39258210 F41.9 Acid reflux 426074901 K2 1.9 Chronic back pain 592026 002 M54.10 Hypertensive disorder 38 251567 I10 Urinary tr act infectious disease 07854867 N39.0 [id number] Mir Javier MD [facility] [address] [place] [address] [place] [address] 01/13/2019 14:54:28 01/13/2019 16:11:42 Hypertensive disorder 63920065 I10 Chronic back pain 509219 002 M54.10 Lumbosacra l radiculopathy 0047630 M54.16 Acid reflux 314646481 K2 1.9 Anxiety 52674708 F41.9 Screening for cardiovascular system disease 448433357 Z13.6 Tachycardia 3423056 R00. 0 Infection of toe 2876896 06 L08.9 [id number] Mir Javier MD [facility] [address] [place] [address] [place] [address] 04/27/2019 10:48:44 04/27/2019 13:32:01 Lumbosacral radiculopathy 0542657 M54.16 Chronic back pain 057686 002 M54.10 Hypertensive disorder 38 808464 I10 Anxiety 92271148 F41.9 Body mass index 30+ - obesity 075955134 Z68.31 [id number] Mir Javier MD [facility] [address] [place], [place] [address] [place] [address] 06/14/2019 14:17:53 06/14/2019 15:27:06 Chronic back pain 952257452 M54.10 Lumbosacra l radiculopathy 5446823 M54.16 Administra tion of influenza vaccine 88081872 Z23 Anxiety 18126386 F41.9 Renewal of prescription 173516312 Z76.0 Hypertensive disorder 38 590171 I10 [id number] Mir Javier MD [address] [address] 08/25/2019 08:39:49 08/25/2019 10:05:14 Lumbosacral radiculopathy 9568065 M54.16 Anxiety 09927602 F41.9 Acid reflux 206124354 K2 1.9 Chronic back pain 684823 002 M54.10 Pain in right foot 69062 15878 57749 M79.115 [id number] Mir Javier MD [address] [place] [address] 09/29/2019 08:48:06 09/29/2019 11:33:12 Injury of muscle of right foot 3587084317 6163716 S96.901D Closed fra cture of fifth metatarsal bone 84538042 S92.351D Pain in right foot 90588 23993 41298 M79.671 Chronic back pain 907151 002 M54.10 Hypertensive disorder 38 758521 I10 Acid reflux 948160238 K2 1.9 Anxiety 32875624 F41.9 [id number] Mir Javier MD [address] [place] [address] 12/16/2019 13:36:55 12/16/2019 14:29:53 Low back pain 686365311 M54.5 newly acquired Aftercare 582324832 Z51. 89 Acid reflux 968674759 K2 1.9 Anxiety 97500521 F41.9 Chronic back pain 501332 002 M54.10 Hypertensive disorder 38 479645 I10 Injury of muscle of right foot 1463757705 2933815 S96.901D [id number] Mir Javier MD [address] [place] [address] 03/21/2020 08:05:35 03/21/2020 09:02:56 Anxiety 27687908 F41.9 Hypertensive disorder 38 015995 I10 Acid reflux 436543029 K2 1.9 Chronic back pain 786733 002 M54.10 Puncture w ound of hand 010516173 S61.431A 2nd digit of right hand [id number] Mir Javier MD [address] [place] [address] 07/12/2020 13:13:47 07/12/2020 14:17:40 General examination of patient 578643738 Z00.00 Hyperlipid emia screening 836130258 Z13.220 Screening for malignant neoplasm of prostate 506378380 Z12.5 Endocrine/ metabolic screening 200394991 Z13.228 Exercises education, guidance, and counseling 270573699 Z71.82 Dietary ma nagement surveillance 105348907 Z71.3 Administra tion of influenza vaccine 58053403 Z23 Acid reflux 246736622 K2 1.9 Anxiety 58392790 F41.9 Chronic back pain 250181 002 M54.10 Hypertensive disorder 38 567799 I10 [id number] Krystal Welsh APRN [address] [place] [address] 11/26/2020 11:06:55 11/26/2020 12:13:56 Gastroesophageal reflux disease 004547237 K21.9 Epigastric pain 65582144 R10.13 [id number] Mir Javier MD [address] [place] [address] 12/13/2020 13:43:36 12/13/2020 14:53:29 Body mass index 30+ - obesity 140273651 Z68.31 Injury of muscle of right foot 8096347593 8579413 S96.901D Lumbosacra l radiculopathy 9273074 M54.16 Anxiety 22058657 F41.9 Acid reflux 852496868 K2 1.9 Hypertensive disorder 38 992394 I10 Chronic back pain 667052 002 M54.10 [id number] Mir Javier MD [address] [place] [address] 03/21/2021 15:58:15 03/21/2021 16:49:47 Anxiety 24730473 F41.9 Acid reflux 368234261 K2 1.9 Pain in throat 030732451 R07.0 Chronic back pain 757485 002 M54.10 Hypertensive disorder 38 494094 I10 Lumbosacra l radiculopathy 1631536 M54.16 [id number] Mir Javier MD [address] [address] 04/10/2021 11:19:11 04/10/2021 11:40:26 Administration of SARS-CoV-2 antigen vaccine 913022792 Z23 [id number] Mir Javier MD [address] [place] [address] 05/09/2021 08:40:31 05/09/2021 10:28:23 Administration of SARS-CoV-2 antigen vaccine 278016073 Z23 [id number] Jose David Garza DO [address] [place] [address] 08/22/2021 09:43:30 08/22/2021 10:48:16 Viral screening 658698608 Z11.52 COVID-19 548580229 U07.1 Anxiety 81866895 F41.9 [id number] Mir Javier MD [address] [place] [address] 10/17/2021 09:52:49 10/17/2021 11:12:20 Anxiety 72623899 F41.9 Acid reflux 350854641 K2 1.9 Chronic back pain 104228 002 M54.10 Hypertensive disorder 38 074237 I10 Lumbosacra l radiculopathy 0282422 M54.16 Body mass index 30+ - obesity 343173059 Z68.31 Administra tion of diphtheria, pertussis, and tetanus vaccine 992854092 Z23 Administra tion of tetanus vaccine 187580548 Z23 Family his tory of diabetes mellitus 892964301 Z83.3 [id number] Mir aJvier MD [place] [address] [facility] [place] [address] 04/03/2022 08:19:25 04/03/2022 09:37:30 Family history of diabetes mellitus 476509557 Z83.3 Anxiety 11039107 F41.9 Lumbosacra l radiculopathy 5285475 M54.16 Acid reflux 576753001 K2 1.9 Chronic back pain 881761 002 M54.10 Hypertensive disorder 38 135298 I10 Dizziness 210064229 R42 [id number] Alejandra Castellano [address] [address] 05/16/2022 08:36:51 05/16/2022 09:47:10 Chronic back pain 220872572 M54.10 follow up with pain management as scheduledp laced off work for 2 weeks to do PT treatments Hypertensive disorder 38 386330 I10 renal artery duplexcard iology referralke ep bp log and bring to appointmen t next week Anxiety 92093093 F41.9 Liver enzy mes level above reference range 311544603 R74.8 Acid reflux 049996609 K2 1.9 Lumbosacra l radiculopathy 9138764 M54.16 [id number] Alejandra Castellano APRN [address] [address] 05/22/2022 15:30:08 05/22/2022 16:17:32 Hypertensive disorder 85353079 I10 renal artery duplexcard iology follow up testing per cardiology eye examif any symptoms worsen return or be seen in edkeep bp log and bring to appointmen t next week Impaired f asting glycemia 833838051 R73.01 Influenza vaccine needed 0560876888 106 Z23 [id number] Alejandra Castellano [address] [place] [address] 05/30/2022 14:38:17 05/30/2022 15:15:04 Chronic back pain 719481851 M54.10 follow up with pain management as scheduledp laced off work for 2 weeks to wait for appointmen t for neurosurge ry [id number] Clembrittany PATRICIA mccall [address] [address] 06/10/2022 17:18:42 06/10/2022 18:15:08 COVID-19 405354196 U07.1 no sign of a bacterial infection. likely viral. viruses can take 7-14 days to run their course. nasal saline and bulb syringe to remove nasal drainage to help with congestion . monitor temp. Tylenol or Motrin as needed for pain or fever. encourage fluids, water, Gatorade, power aide, Pedialyte if infant/tod dler/child warm salt water gargles warm fluids sore throat lozenges sleep elevated humidifier /vaporizer follow up immediatel y for new or worsening symptoms or no noticeable improvemen t over the next 48-72 hoursgo to ed brando if any concerns [id number] Alejandra Castellano APRN [address] [address] 06/13/2022 10:31:15 06/13/2022 10:43:38 COVID-19 950767463 U07.1 no sign of a bacterial infection. likely viral. viruses can take 7-14 days to run their course. nasal saline and bulb syringe to remove nasal drainage to help with congestion . monitor temp. Tylenol or Motrin as needed for pain or fever. encourage fluids, water, Gatorade, power aide, Pedialyte if /tod dler/child warm salt water gargles warm fluids sore throat lozenges sleep elevated humidifier /vaporizer follow up immediatel y for new or worsening symptoms or no noticeable improvemen t over the next 48-72 hoursgo to ed brando if any concerns Chronic back pain 000292 002 M54.10 follow up with pain management as scheduledp laced off work ftill 07/13/22 until appointmen t for neurosurge ry Hypertensive disorder 38 158149 I10 cardiology follow up testing per cardiology if any symptoms worsen return or be seen in edkeep bp log and bring to appointmen t next week [id number] Clembrittany Castellano [address] [address] 07/10/2022 09:31:31 07/10/2022 10:27:00 Anxiety 22627096 F41.9 Pt compliant with plan of careKasper reviewedme dication compliance discussedL ast uds:Control substance agreement on filePatien t identified triggers for anxiety and impact of anxious thinking on functionin g. Discussed strategies to regulate symptoms and need for compliance with treatment. Long-term drug therapy 373669010 Z79.474 [id number] Tessadarien Castellano [address] [address] 07/14/2022 09:59:20 07/14/2022 10:43:19 Chronic back pain 788913688 M54.10 follow up with pain management as scheduledr eleased to return back to work on light duty for 4 weeks [id number] [facility] [address] [address] 08/07/2022 08:48:39 08/07/2022 09:46:50 Chronic back pain 098428077 M54.10 follow up with pain management as scheduledd iscuss work restrictio ns with back specialist Anxiety 00714461 F41.9 Pt compliant with plan of careKasper reviewedme dication compliance discussedL ast uds:Control substance agreement on filePatien t identified triggers for anxiety and impact of anxious thinking on functionin g. Discussed strategies to regulate symptoms and need for compliance with treatment. [id number] Alejandra Castellano [address] [address] 08/21/2022 08:50:54 08/21/2022 09:47:18 Chronic back pain 674186545 M54.10 follow up with pain management as scheduledd iscuss work restrictio ns with back specialist continue PT as scheduleda ny changes or new symptoms return or be seen in ed [id number] Alejandra Castellano [address] [address] 09/04/2022 08:15:27 09/04/2022 08:48:46 Anxiety 00810279 F41.9 Pt compliant with plan of careKasper reviewedme dication compliance discussedL ast uds:Control substance agreement on filePatien t identified triggers for anxiety and impact of anxious thinking on functionin g. Discussed strategies to regulate symptoms and need for compliance with treatment. [id number] Alejandra Castellano [address] [address] 10/16/2022 09:51:12 10/16/2022 10:45:47 Anxiety 68385093 F41.9 Pt compliant with plan of careKasper reviewed and appropriat emedicatio n compliance discussedL ast uds:Control substance agreement on filePatien t identified triggers for anxiety and impact of anxious thinking on functionin g. Discussed strategies to regulate symptoms and need for compliance with treatment. Active or passive immunization 113063148 Z23 [id number] Clembrittany Castellano [address] [address] 11/17/2022 14:30:03 11/17/2022 15:22:36 Anxiety 20213534 F41.9 Pt compliant with plan of careKasper reviewed and appropriat emedicatio n compliance discussedL ast uds: 3Control substance agreement on count [facility] identified triggers for anxiety and impact of anxious thinking on functionin g. Discussed strategies to regulate symptoms and need for compliance with treatment. discussed the risk of meds, do not take meds at the same time Long-term current use of drug therapy 996389015 Z79.499 [id number] Alejandra Castellano [address] [address] 12/08/2022 08:45:49 12/08/2022 09:41:10 Hypertensive disorder 12612157 I10 cardiology follow up testing per cardiology if any symptoms worsen return or be seen in edkeep bp log and bring to appointmen t next week Anxiety 85058063 F41.9 Pt compliant with plan of [place] reviewed and appropriat emedicatio n compliance discussedL ast uds: 3Control substance agreement on filePatien t identified triggers for anxiety and impact of anxious thinking on functionin g. Discussed strategies to regulate symptoms and need for compliance with treatment. discussed the risk of meds, do not take meds at the same time Body mass index 25-29 - overweight 294534799 Z68.27 27.8 Overweight 524210184 E66 .3 Low back pain 022805791 M54.50 [id number] Alejandra Castellano [address] [address] 02/27/2023 16:03:45 02/27/2023 17:03:31 Depressive disorder 37996926 F32.A follow up with psych and therapy as scheduled Skin lesion 05000673 L98 .9 Impaired g lucose tolerance 8908736 R73.02 dexcom pro placedretu rn in 10 days for readings and treatment plan [id number] Alejandra Castellano [address] [address] 03/09/2023 07:59:32 03/09/2023 08:46:59 Body mass index 25-29 - overweight 191890114 Z68.25 25.9 Overweight 549636408 E66 .3 Dizzy spells 524114464 R 42 Increased thirst 1152870 03 R63.1 Impaired g lucose tolerance 8683393 R73.02 continue to monitor glucose and keep logglucose tolerancew hen spell starts check glucose every 10 mins [id number] Alejandra Castellano [address] [address] 03/27/2023 09:13:53 03/27/2023 10:08:08 Dizziness 781487169 R42 glucose tolerance results are good- recommend continue monitoring glucose and check glucose during episode.ca ll see cardiology brando and explain to them symptoms- for more work upreturn if any symptomsfo llow up with neurology [id number] Alejandra Castellano [address] [address] 05/07/2023 13:38:59 05/07/2023 14:10:51 Anxiety 69816911 F41.9 letter given to pt confirming diagnosis and the need for a special services director. informed the vet would know more about the other paperwork that is needed Depressive disorder 8943 5315 F32.A follow up with psych and therapy as scheduled [id number] Margie Spicer [facility] [address] [place] [address] 12/15/2023 14:17:00 12/15/2023 15:37:04 Repetitive self-excoriation 907491858 F42.4 educated on scratch/it ch cycle Seborrheic dermatitis 50 658235 L21.9 [id number] [facility] [address] [address] 05/19/2023 14:34:58 05/19/2023 14:48:05 Influenza vaccine needed 4390459098 106 Z23 [id number] [facility] [address] [address] 11/06/2023 08:38:22 11/06/2023 09:15:58 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 Depressive disorder 6405 9007 F32.A follow up with psych and therapy as scheduled Chronic back pain 129486 002 M54.10 follow up with pain management as scheduled continue with pain management any changes or new symptoms return or be seen in ed Body mass index 30+ - obesity 546692074 Z68.31 Obesity 022191345 E66.9 Gastroesop hageal reflux disease without esophagitis 257614351 K21.9 Anxiety 66627483 F41.9 Hypertensive disorder 38 765473 I10 pt wants to wait on labs has children with him todaycardi ology follow up testing per cardiology if any symptoms worsen return or be seen in [place] [id number] Alejandra Castellano [address] [address] 02/08/2024 08:02:05 02/08/2024 09:11:45 Increased frequency of urination 741776534 R35.0 will treat with antibiotic s until culture resultsif symptoms worsen or no improvemen t go to ed for eval Chronic back pain 881933 002 M54.10 follow up with pain management as scheduled continue with pain management any changes or new symptoms return or be seen in ed Depressive disorder 3548 9007 F32.A follow up with psych and therapy as scheduled Family his tory of diabetes mellitus 380901093 Z83.3 Hypertensive disorder 38 007230 I10 pt wants to wait on labs has children with him todaycardi ology follow up testing per cardiology if any symptoms worsen return or be seen in ed [id number] Alejandra Castellano [address] [address] 03/28/2024 14:51:34 03/28/2024 16:57:03 Impacted cerumen of bilateral ears 6829119626 484695 H61.23 Acute righ t otitis media 027200503 H66.91 [id number] Alejandra Castellano [address] [address] 04/15/2024 14:03:15 04/15/2024 14:22:05 Influenza vaccine needed 8323395361 106 Z23 [id number] Alejandra Castellano [address] [address] 06/21/2024 13:34:16 06/21/2024 14:28:22 Peripheral vascular disease 485188585 I73.[address] rodriguez- sent pt to [facility] for direct admission for poss interventi on- stents report to laly at [facility] [id number] Alejandra Castellano [address] [address] 07/14/2024 15:01:09 07/22/2024 13:53:04 Peripheral vascular disease 196711963 I73.9 keep follow up appointmen ts, any issues return or be seen in ed [id number] Alejandra Castellano APRN [address] [address] 10/14/2024 09:52:18 10/14/2024 10:54:26 Lumbosacral radiculopathy 8668710 M54.16 Chronic back pain 590763 002 M54.10 follow up with pain management as scheduled continue with pain management any changes or new symptoms return or be seen in ed Health Concerns Section Related Observation LastModified by Organization Detai ls LastModified Time None Recorded Concern Status LastModified by Organization Details LastModified Time None Recorded Advance Directives Directive N: Payers Insurance Date Sequence Insurance Name Policy Number Policy Rojas Covered Member ID Rojas Member ID Guarantor Name 05/29/2022 1 [employer] PRIOR TO 2022 (MEDICAID REPLACEMENT - HMO) REHAN Tesfaye [id number] Bill Tesfaye 05/29/2022 1 [employer] REHAN Tesfaye [id number] Bill Tesfaye 05/29/2022 [place] [facility] [place] Bill Tesfaye [id number] Bill Tesfaye 10/25/2024 1 [facility] Bill Tesfaye [id number] Bill Tesfaye 10/11/2024 [place] MCD_AF[employer] Bill Tesfaye [id number] Bill Tesfaye 05/29/2022 1 [facility] (MEDICAID REPLACEMENT - HMO) MCD_AFPL Bill Tesfaye [id number] Bill Tesfaye 05/29/2022 [place] Bill Tesfaye [id number] Bill Tesfaye 05/29/2022 1 [facility] Bill Tesfaye [id number] Bill Tesfaye 10/07/2016 1 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 Bill Tesfaye 05/29/2022 [place] Bill Brien [id number] Bill Mir Tesfaye 05/29/2022 [place] Billmark Tesfaye [id number] Bill Mir Tesfaye 05/29/2022 [place] Bill Brien [id number] Bill Hester Brien Notes Date Note Type Note Provider Name and Address Organization Details Recorded Time 03/28/2024 text/html 38 year old male who presents to the office today with concerns ofleft ear pain, popping and ringing, started yesterday, states starting to feel the same way in the right ear also Alejandra Castellano APRN [address], [place], [address], [facility] 03/28/2024 16:37:59 04/15/2024 text/html 38 yr old male presents for a flu vaccine. Maritza Loza [facility] 04/15/2024 14:33:04 06/21/2024 text/html 38 yr old male presents for right foot and calf pain x 1 week. He has lost his toenails on the right foot from several toes. Skin is peeling from around toes. Alejandra Castellano APRN [address], [place], [address], [facility] - [facility] 06/21/2024 14:34:15 07/12/2024 text/html Emergency Depart ment Follow-Up RecordReported bypatient.Discharge InformationName of hospital/urgent care patient was seen: ([facility]); Patient presented to hospital for treatment of: (decreased circulation); Treatment received by hospital/urgent care: (admitted); Patient's condition has: improved; Hospital records available at the time of this visit: No 38 yr old male following up from hospital stay. He had poor circulation in his right leg resulting in toenails coming off and discoloration of skin. Patient was admitted and placed on heparin drip. He is currently wearing a heart monitor and seeing podiatry, Alejandra Castellano APRN [address], [place], [address], [facility] - [facility] 07/21/2024 14:26:30 10/14/2024 text/html 38 year old male who presents to the office today with concerns ofchronic back pain, needing disability paperwork filled out. pt states he is disabled and draws ssi. Alejandra Castellano, [employer] [address], [place], [address], [place] - [facility] 10/14/2024 10:51:45
[2025-02-03 10:39] LABS: Basophils # 0.1 K/mm3 (0-0.2); Basophils % 0.7 % (0.1-2.0); Eosinophils # 0.3 Kmm3 (0.0-0.4); Eosinophils % 4.1 % (0.1-12.0); Hematocrit 42.2 % (42.0-52.0); Hemoglobin 13.9 g/dL (14.1-18.0); Immature Granulocytes # 0.09 10^3uL; Immature Granulocytes % 1.2 %; Lymphocytes % 28.1 % (10-50); Mean Corpuscular HGB Conc 32.9 g/dL (31.8-35.4); Mean Corpuscular Hemoglobin 29.1 pg (27.0-31.2); Mean Corpuscular Volume 88.5 fl (80-94); Mean Platelet Volume 9.8 fl (7.4-10.4); Monocytes # 0.6 K/mm3 (0.1-1.0); Monocytes % 8.6 % (1.7-9.3); Neutrophils # 4.2 K/mm3 (1.8-7.8); Neutrophils % 57.3 % (37.0-80.0); Nucleated Red Blood Cells # 0 10^3/uL; Nucleated Red Blood Cells % 0 %; Platelet Count 276 K/mm3 (142-424); Red Blood Count 4.77 M/mm3 (4.60-6.20); White Blood Count 7.3 K/mm3 (4.8-10.8)
[2025-02-03 10:59] LABS: Alanine Aminotransferase 143 U/L (12-78); Albumin Level 4.8 g/dl (3.5-5.0); Albumin/Globulin Ratio 1.8 (1.1-1.8); Alkaline Phosphatase 92 U/L (38-126); Anion Gap 14.3 mEq/L (5-15); Aspartate Amino Transferase 111 U/L (17-59); Bilirubin,Total 0.7 mg/dl (0.2-1.3); Blood Urea Nitrogen 12 mg/dl (9-20); Calcium 10.1 mg/dl (8.4-10.2); Carbon Dioxide 31 mmol/L (22.0-30.0); Chloride 99 mmol/L (98-107); Estimated Glomerular Filt Rate 75 ml/min (>60); GFR (African American) 91 ML/MIN (>60); Globulin 2.7 g/dL (1.3-3.2); Glucose 106 mg/dl (74-100); Potassium 5.3 mmoL/L (3.5-5.1); Sodium 139 mmol/L (136-145); Total Protein,Serum 7.5 g/dl (6.3-8.2)
[2025-02-07 08:12] LABS: ALT (SGPT) P5P 136 IU/L (0-55); AST (SGOT) P5P 99 IU/L (0-40); Alpha 2-Macroglobulins, Qn 158 mg/dL (110-276); Apolipoprotein A-1 110 mg/dL (101-178); Bilirubin, Total 0.3 mg/dL (0.0-1.2); Cholesterol, Total 200 mg/dL (100-199); GGT 70 IU/L (0-65); Glucose 101 mg/dL (70-99); Haptoglobin 298 mg/dL (17-317); NASH Score 0.76 (0.00-0.25); Steatosis Score 0.75 (0.00-0.40); Triglycerides 189 mg/dL (0-149)
== END 2025-02-03 23:59 | disposition home or self-care (01) ==
LOC: LAB 09:47
PROVIDERS: PCP Nurse Practitioner Family; Visit Provider Nurse Practitioner Family
DX: R79.89 Other specified abnormal findings of blood chemistry (principal); E88.1 Lipodystrophy, not elsewhere classified; K76.0 Fatty (change of) liver, not elsewhere classified
CPT/HCPCS: 36415; 80053; 82172; 82247; 82465; 82947; 82977; 83010; 83883; 84450; 84460; 84478; 85025

== ENCOUNTER 2025-02-07 07:11 | Outpatient (CLI) | payer MEDICARE, SELFPAY ==
--- OUTSIDE RECORDS SUMMARY | 2025-01-04 14:00 | XMS_ITS | Encounter Summary ---
Author Organization Healthcare Address [address] [id number] Care Team Providers Care Manager Net Name Role Phone Inocencia Hastings APRN, DNP Unavailable +1- [phone] Ly Morales APRN Primary Care Provider +1- [phone] Reason for Visit * Reason Comments Consult * Consultation (Routine) - Closed Specialty Diagnoses / Procedures Referred By Faustino t Referred To Contact Nephrology Diagnoses Retention, urine Helene Pal, HEALTH SERVICES COORDINATOR, DNP [address] [place] [address] Phone: tel: fax: Referral ID Status Reason Start Date Expiration Date V isits Requested Visits Authorized [id number] Closed Specialty Services Required 11/24/2024 05/26/2026 1 1 Encounter Details Date Type Department Care Team (Late st Contact Info) Description 01/04/2025 2:00 PM EDT Office Visit [facility] [place] [facility] Mineral Metabolism [address], [address] [place] [address] Gerson Vance MD [address] [place] [address] History of proteinuria syndrome (Primary [...] (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 [...] LIGAMENT REPAIR Right APPENDECTOMY N/A Appendectomy from [facility] ESOPHAGOGASTRODUODENOSCOPY Right IR PAIN PUMP IMPLANT/ REPLACEMENT KNEE SURGERY Right ACL/MCL repair SPINAL CORD STIMULATOR IMPLANT Lumbar SPINE SURGERY 07/27/2018 L4-5 laminectomy TONSILLECTOMY N/A Tonsillectomy from [facility] [3] Family History Problem Relation Name Age [...] Description 03/13/2025 9:00 AM EDT Office Visit [facility] [address] [place] [address] Helene Pal, HEALTH SERVICES COORDINATOR, DNP [address] [place] [address] documented as of this encounter Results * Vitamin D 25 Hydroxy (01/04/2025 2:39 PM EDT) Vitamin D 25 Hydroxy 22.2 20.0 - 80.0 ng/mL 01/04/2025 6:55 PM EDT [facility] Blood Venous blood specimen / Unknown Venipuncture / Unknown 01/04/2025 2:39 PM EDT 01/04/2025 2:39 PM EDT Narrative [facility] - 01/04/2025 6:55 PM EDT Testing performed on Jack Director Surgical, standardized against NIST SRM [id number]. When testing [...] MD LAB BLOOD ORDERABLES Final Resul t [facility] [address] [place] [address] * (ABNORMAL) CBC and Differential (01/04/2025 2:39 PM EDT) WBC Count 7.75 3.70 - 10.30 10*3/uL LAB HEMATOLOGY METHOD 01/04/2025 5:27 PM EDT [facility] RBC Count 4.93 4.60 - 6.10 10*6/uL LAB HEMATOLOGY METHOD 01/04/2025 5:27 PM EDT [facility] HGB 14.4 13.7 - 17.5 g/dL LAB HEMATOLOGY METHOD 01/04/2025 5:27 PM EDT [facility] HCT 44.0 40.0 - 51.0 % LAB HEMATOLOGY METHOD 01/04/2025 5:27 PM EDT [facility] Platelet Count 292 155 - 369 10*3/uL LAB HEMATOLOGY METHOD 01/04/2025 5:27 PM EDT [facility] MCV 89 79 - 98 fL LAB HEMATOLOGY METHOD 01/04/2025 5:27 PM EDT [facility] MCH 29.2 26.0 - 32.0 pg LAB HEMATOLOGY METHOD 01/04/2025 5:27 PM EDT [facility] MCHC 32.7 30.7 - 35.5 g/dL LAB HEMATOLOGY METHOD 01/04/2025 5:27 PM EDT [facility] RDW 14.6(H) 11.5 - 14.5 % LAB HEMATOLOGY METHOD 01/04/2025 5:27 PM EDT [facility] MPV 9.9 8.8 - 12.5 fL LAB HEMATOLOGY METHOD 01/04/2025 5:27 PM EDT [facility] nRBC 0.0 <=0.0 per 100 WBCs LAB HEMATOLOGY METHOD 01/04/2025 5:27 PM EDT [facility] Differential Type Automated LAB HEMATOLOGY METHOD 01/04/2025 5:27 PM EDT [facility] Neutrophils % 57 % LAB HEMATOLOGY METHOD 01/04/2025 5:27 PM EDT [facility] Lymphocytes % 27 % LAB HEMATOLOGY METHOD 01/04/2025 5:27 PM EDT [facility] Monocytes % 9 % LAB HEMATOLOGY METHOD 01/04/2025 5:27 PM EDT [facility] Eosinophils % 5 % LAB HEMATOLOGY METHOD 01/04/2025 5:27 PM EDT [facility] Basophils % 1 % LAB HEMATOLOGY METHOD 01/04/2025 5:27 PM EDT [facility] Immature Granulocytes % 1 % LAB HEMATOLOGY METHOD 01/04/2025 5:27 PM EDT [facility] Neutrophils Absolute 4.49 1.60 - 6.10 10*3/uL LAB HEMATOLOGY METHOD 01/04/2025 5:27 PM EDT [facility] Lymphocytes Absolute 2.06 1.20 - 3.90 10*3/uL LAB HEMATOLOGY METHOD 01/04/2025 5:27 PM EDT [facility] Monocytes Absolute 0.70 0.30 - 0.90 10*3/uL LAB HEMATOLOGY METHOD 01/04/2025 5:27 PM EDT [facility] Eosinophils Absolute 0.40 0.00 - 0.50 10*3/uL LAB HEMATOLOGY METHOD 01/04/2025 5:27 PM EDT [facility] Basophils Absolute 0.04 0.00 - 0.10 10*3/uL LAB HEMATOLOGY METHOD 01/04/2025 5:27 PM EDT [facility] Immature Granulocytes Absolute 0.06 0.00 - 0.06 10*3/uL LAB HEMATOLOGY METHOD 01/04/2025 5:27 PM EDT [facility] Blood Venous blood specimen / Unknown Venipuncture / Unknown 01/04/2025 2:39 PM EDT 01/04/2025 2:39 PM EDT Narrative [facility] - 01/04/2025 5:27 PM EDT Therapeutic decision making should be based on absolute values, rather than percentages. us Gerson Vance MD LAB BLOOD ORDERABLES Final Resul t [facility] [address] [place] [address] * (ABNORMAL) Renal Function Panel, Plasma (01/04/2025 2:39 PM EDT) Glucose, Plasma 121(H) 74 - 99 mg/dL 01/04/2025 5:47 PM EDT [facility] BUN, Plasma 8 7 - 21 mg/dL 01/04/2025 5:47 PM EDT [facility] Creatinine, Plasma 1.07 0.70 - 1.20 mg/dL 01/04/2025 5:47 PM EDT [facility] BUN/Creatinine Ratio 7 01/04/2025 5:47 PM EDT [facility] Sodium, Plasma 141 136 - 145 mmol/L 01/04/2025 5:47 PM EDT [facility] Potassium, Plasma 4.0 3.6 - 4.9 mmol/L 01/04/2025 5:47 PM EDT [facility] Chloride, Plasma 105 97 - 107 mmol/L 01/04/2025 5:47 PM EDT [facility] CO2, Plasma 23 22 - 29 mmol/L 01/04/2025 5:47 PM EDT [facility] Anion Gap 13 6 - 16 mmol/L 01/04/2025 5:47 PM EDT [facility] Total Calcium, Plasma 9.2 8.9 - 10.2 mg/dL 01/04/2025 5:47 PM EDT [facility] Phosphorus, Plasma 4.0 2.5 - 4.5 mg/dL 01/04/2025 5:47 PM EDT [facility] Albumin, Plasma 4.6 3.5 - 5.2 g/dL 01/04/2025 5:47 PM EDT [facility] eGFRcr 91.7 mL/min/1.7 3m*2 01/04/2025 5:47 PM EDT [facility] Comment:Reported eGFRcr in m L/min/1.73m2 is based the CKD-EPI 2020 equation that does not use a race coefficient. Blood Venous blood specimen / Unknown Venipuncture / Unknown 01/04/2025 2:39 PM EDT 01/04/2025 2:39 PM EDT Gerson Vance MD LAB BLOOD ORDERABLES Final Resul t [facility] [address] [place] [address] * Protein, Random, Urine with Creatinine (01/04/2025 2:32 PM EDT) Protein, Urine 10 mg/dL 01/04/2025 5:44 PM EDT [facility] Creatinine, Urine 209 mg/dL 01/04/2025 5:44 PM EDT [facility] Protein/Creati nine Ratio 0.0 mg/mg Creat 01/04/2025 5:44 PM EDT [facility] Urine Urine specimen obtained by clean catch procedure / Unknown Non-blood Collection / Unknown 01/04/2025 2:32 PM EDT 01/04/2025 2:34 PM EDT Gerson Vance MD LAB URINE ORDERABLES Final Resul t Performing Organization Address City/[facility] Co de Phone Number [facility] [address] [place] [address] * Albumin-creatinine ratio, urine, random (01/04/2025 2:32 PM EDT) Microalbumin, Urine <1.2 <1.9 mg/dL 01/04/2025 6:09 PM EDT [facility] Creatinine, Urine 215 mg/dL 01/04/2025 6:09 PM EDT [facility] Albumin/Creatin ine Ratio 01/04/2025 6:09 PM EDT [facility] Comment:Unable to calculate, at least one value is above or below the detection limit. Urine Urine specimen obtained by clean catch procedure / Unknown Non-blood Collection / Unknown 01/04/2025 2:32 PM EDT 01/04/2025 2:34 PM EDT us Gerson Vance MD LAB URINE ORDERABLES Final Resul t Performing Organization Address City/[facility]/ZIP Co de Phone Number [facility] [address] [place] [address] * (ABNORMAL) Urinalysis with reflex microscopic (Culture NOT Included) (01/04/2025 2:32 PM EDT) Color, Urine Yellow LAB URINALYSIS - AUTOMATED METHOD 01/04/2025 6:07 PM EDT [facility] Clarity, Urine Clear LAB URINALYSIS - AUTOMATED METHOD 01/04/2025 6:07 PM EDT [facility] Spec [place], Urine 1.020 1.005 - 1.030 LAB URINALYSIS - AUTOMATED METHOD 01/04/2025 6:07 PM [facility] pH, Urine 5.5 5.0 - 8.0 LAB URINALYSIS - AUTOMATED METHOD 01/04/2025 6:07 PM [facility] Protein, Urine Negative Negative mg/dL LAB URINALYSIS - AUTOMATED METHOD 01/04/2025 6:07 PM [facility] Glucose, Urine Negative Negative mg/dL LAB URINALYSIS - AUTOMATED METHOD 01/04/2025 6:07 PM [facility] Ketones, Urine Trace(A) Negative mg/dL LAB URINALYSIS - AUTOMATED METHOD 01/04/2025 6:07 PM [facility] Blood, Urine Trace(A) Negative LAB URINALYSIS - AUTOMATED METHOD 01/04/2025 6:07 PM [facility] Bilirubin, Urine Negative Negative LAB URINALYSIS - AUTOMATED METHOD 01/04/2025 6:07 PM [facility] Urobilinogen, Urine 1.0 0.2 to 1.0 mg/dL LAB URINALYSIS - AUTOMATED METHOD 01/04/2025 6:07 PM [facility] Leukocytes, Urine Negative Negative LAB URINALYSIS - AUTOMATED METHOD 01/04/2025 6:07 PM [facility] Nitrite, Urine Negative Negative LAB URINALYSIS - AUTOMATED METHOD 01/04/2025 6:07 PM [facility] RBC, Urine 4 - 10(A) 0 to 3 /HPF 01/04/2025 6:07 PM [facility] Comment:This result was prev iously suppressed from the chart. WBC, Urine 0 - 5 0 to 5 /HPF 01/04/2025 6:07 PM T [facility] Comment:This result was prev iously suppressed from the chart. Squamous Epithelial Cells 0 - 2 0 to 5 /HPF 01/04/2025 6:07 PM T [facility] Comment:This result was prev iously suppressed from the chart. Hyaline Casts 0 - 2 0 to 5 /LPF 01/04/2025 6:07 PM [facility] Comment:This result was prev iously suppressed from the chart. Bacteria, Urine Negative Negative 01/04/2025 6:07 PM T [facility] Comment:This result was prev iously suppressed from the chart. Urine Urine specimen obtained by clean catch procedure / Unknown Non-blood Collection / Unknown 01/04/2025 2:32 PM EDT 01/04/2025 2:34 PM EDT Narrative [facility] - 01/04/2025 6:07 PM EDT Performed by manual method us Gerson Vance MD LAB URINE ORDERABLES Final Resul t [facility] [address] [place] [address] documented in this encounter Visit Diagnoses Diagnosis [...] documented as of this encounter Care Teams Manager Net Relationship Specialty Start Date End Date Ly Morales APRN [address] [place] [address] PCP - General 12/29/22 Inocencia Hastings APRN, DNP [address] [facility] [address] [place] [address] Nurse Practitioner Neurosurgery 07/11/22 documented as of this encounter
--- OUTSIDE RECORDS SUMMARY | 2025-02-07 07:13 | XMS_ITS | Encounter Summary ---
Author Organization Healthcare Address [address] [place] [address] Care Team Providers Care Helminthologist Name Role Phone Mir Javier MD Primary Care Provider [phone] Inocencia Hastings APRN, DNP Unavailable [phone] Ly Morales APRN Primary Care Provider [phone] Encounter Details Date Type Department Care Team (Late st Contact Info) Description 06/09/2022 Orders Only External Location [address] [place] [address] Aelx Perez MD [address] [facility] [address] [place] [id number] Social History Tobacco Use Types Packs/Day Years [...] Description 03/13/2025 9:00 AM EDT Office Visit [facility] U[facility] [address] [place] [address] Helene PalPATRICIA, DNP [address] [place] [address] documented as of this encounter Procedures Procedure [...] documented as of this encounter Care Teams Helminthologist Relationship Specialty Start Date End Date Mir Javier MD [address] [place] [address] PCP - General 12/21/20 12/28/22 Ly Morales APRN [address] [place] [address] PCP - General 12/29/22 Inocencia Hastings APRN, BETO [address] [place] [address] Nurse Practitioner Neurosurgery 07/11/22 documented as of this encounter
--- OUTSIDE RECORDS SUMMARY | 2025-02-07 07:13 | XMS_ITS | Clinical Summary ---
Author Organization Healthcare Address [address] [place] [address] Care Team Providers Care Tank Truck Mechanic Name Role Phone Khdaarluz elenaInocencia APRN, DNP Unavailable [phone] Ly Morales APRN Primary Care Provider [phone] Allergies Active Allergy Reactions Criticality Noted Date [...] 03/16/2023 Nonalcoholic fatty liver 03/16/2023 Depression 02/27/2023 Oelqm-4-fphlmobupes deficiency 10/16/2022 Abnormal liver function tests 09/25/2022 Pulmonary emphysema 09/25/2022 Gastro-esophageal reflux disease with esophagiti s 09/03/2022 Dizziness 04/03/2022 Tear of right acetabular labrum 09/17/2021 Overview (09/17/2021): Added automatically from request for surgery [id number] Acute pharyngitis 03/22/2021 Hip pain 11/08/2020 Injury [...] Description 01/04/2025 2:00 PM EDT Office Visit [facility] Nephrology, Bone & Mineral Metabolism [address], [address] [place] [address] Gerson Vance MD History of proteinuria syndrome (Primary Dx); Retention, urine; Stage 3a chronic kidney disease (CMS/HCC) 01/04/2025 Travel 12/29/2024 Telephone [facility] Nephrology, Bone & Mineral Metabolism [address] , [address] [place] [address] Hillary Ruiz 11/24/2024 9:20 AM EDT Office Visit [facility] [address] [place] [id number] Helene Pal, PROJECT TECHNICIAN, DNP Urine frequency (Primary Dx); Retention, urine; Difficulty voiding; PFD (pelvic floor dysfunction); Neurogenic bladder 11/24/2024 Orders Only External Location [address] [place] [id number] Provider, External 11/24/2024 Travel 11/22/2024 Travel from [...] Office Visit [facility] [address] [place] [address] Helene Pal APRN, DNP [address] [place] [address] Health Maintenance Due Date Last [...] - Risk 2-dose series) 04/18/2023 10/16/2022, 07/27/2018 [id number] Vaccine ( - season) 2024 10/02/2022, 05/09/2021, [...] this topic Medical Devices Implanted Type Area Scale Clerk Device Identifier Shelf Expiration Date Model / Serial / Lot Scs Lead- 9 Implanted:Qty: 2 on 07/27/2019 Lead Back Medtronic [id number] / / Medtronic Spinal Cord Stimulator- Implanted:07/10 (Quantity not on file) Spinal Cord Stimulator Back Medtronic [id number] / [id number] / Description:LEAD MODEL: [id number], qty 2 [...] Routine 11/24/2024 9:57 AM EDT Retention, urine [place] COMPLEX CYSTOMETROGRAM W/VOID PRESS&URETHRAL PROFILE Routine 11/24/2024 [...] 6:55 PM EDT Testing performed on Jack Jewel Bearing Polisher, standardized against NIST SRM 2972. When testing [...] Resul t [facility] [address] [place] [address] * (ABNORMAL) CBC and Differential (01/04/2025 2:39 PM EDT) [facility] Signature WBC Count 7.75 3.70 - 10.30 10*3/uL LAB HEMATOLOGY METHOD 01/04/2025 5:27 PM EDT [facility] RBC Count 4.93 4.60 - 6.10 10*6/uL LAB HEMATOLOGY METHOD 01/04/2025 5:27 PM EDT [facility] HGB 14.4 13.7 - 17.5 g/dL LAB HEMATOLOGY METHOD 01/04/2025 5:27 PM EDT [facility] HCT 44.0 40.0 - 51.0 % LAB HEMATOLOGY METHOD 01/04/2025 5:27 PM EDT [facility] Platelet Count 292 155 - 369 10*3/uL LAB HEMATOLOGY METHOD 01/04/2025 5:27 PM EDT [facility] MCV 89 79 - 98 fL LAB HEMATOLOGY METHOD 01/04/2025 5:27 PM EDT [facility] MCH 29.2 26.0 - 32.0 pg LAB HEMATOLOGY METHOD 01/04/2025 5:27 PM EDT [facility] MCHC 32.7 30.7 - 35.5 g/dL LAB HEMATOLOGY METHOD 01/04/2025 5:27 PM EDT [facility] RDW 14.6(H) 11.5 - 14.5 % LAB HEMATOLOGY METHOD 01/04/2025 5:27 PM EDT [facility] MPV 9.9 8.8 - 12.5 fL LAB HEMATOLOGY METHOD 01/04/2025 5:27 PM EDT [facility] nRBC 0.0 <=0.0 per 100 WBCs LAB HEMATOLOGY METHOD 01/04/2025 5:27 PM EDT [facility] Differential Type Automated LAB HEMATOLOGY METHOD 01/04/2025 5:27 PM EDT [facility] Neutrophils % 57 % LAB HEMATOLOGY METHOD 01/04/2025 5:27 PM EDT [facility] Lymphocytes % 27 % LAB HEMATOLOGY METHOD 01/04/2025 5:27 PM EDT [facility] Monocytes % 9 % LAB HEMATOLOGY METHOD 01/04/2025 5:27 PM EDT [facility] Eosinophils % 5 % LAB HEMATOLOGY METHOD 01/04/2025 5:27 PM EDT [facility] Basophils % 1 % LAB HEMATOLOGY METHOD 01/04/2025 5:27 PM EDT [facility] Immature Granulocytes % 1 % LAB HEMATOLOGY METHOD 01/04/2025 5:27 PM EDT [facility] Neutrophils Absolute 4.49 1.60 - 6.10 10*3/uL LAB HEMATOLOGY METHOD 01/04/2025 5:27 PM EDT [facility] Lymphocytes Absolute 2.06 1.20 - 3.90 10*3/uL LAB HEMATOLOGY METHOD 01/04/2025 5:27 PM EDT [facility] Monocytes Absolute 0.70 0.30 - 0.90 10*3/uL LAB HEMATOLOGY METHOD 01/04/2025 5:27 PM EDT [facility] Eosinophils Absolute 0.40 0.00 - 0.50 10*3/uL LAB HEMATOLOGY METHOD 01/04/2025 5:27 PM EDT [facility] Basophils Absolute 0.04 0.00 - 0.10 10*3/uL LAB HEMATOLOGY METHOD 01/04/2025 5:27 PM EDT [facility] Immature Granulocytes Absolute 0.06 0.00 - 0.06 10*3/uL LAB HEMATOLOGY METHOD 01/04/2025 5:27 PM EDT [facility] Blood Venous blood specimen / Unknown Venipuncture / Unknown 01/04/2025 2:39 PM EDT 01/04/2025 2:39 PM EDT Narrative [facility] - 01/04/2025 5:27 PM EDT Therapeutic decision making should be based on absolute values, rather than percentages. Gerson Vance MD LAB BLOOD ORDERABLES Final Resul t [facility] [address] [place] [id number] * (ABNORMAL) Renal Function Panel, Plasma (01/04/2025 2:39 PM EDT) Pathologist [facility] Glucose, Plasma 121(H) 74 - 99 mg/dL 01/04/2025 5:47 PM EDT [facility] BUN, Plasma 8 7 - 21 mg/dL 01/04/2025 5:47 PM EDT [facility] Creatinine, Plasma 1.07 0.70 - 1.20 mg/dL 01/04/2025 5:47 PM EDT [facility] BUN/Creatinine Ratio 7 01/04/2025 5:47 PM EDT [facility] Sodium, Plasma 141 136 - 145 mmol/L 01/04/2025 5:47 PM EDT [facility] Potassium, Plasma 4.0 3.6 - 4.9 mmol/L 01/04/2025 5:47 PM EDT [facility] Chloride, Plasma 105 97 - 107 mmol/L 01/04/2025 5:47 PM EDT [facility] CO2, Plasma 23 22 - 29 mmol/L 01/04/2025 5:47 PM EDT [facility] Anion Gap 13 6 - 16 mmol/L 01/04/2025 5:47 PM EDT [facility] Total Calcium, Plasma 9.2 8.9 - 10.2 mg/dL 01/04/2025 5:47 PM EDT [facility] Phosphorus, Plasma 4.0 2.5 - 4.5 mg/dL 01/04/2025 5:47 PM EDT [facility] Albumin, Plasma 4.6 3.5 - 5.2 g/dL 01/04/2025 5:47 PM EDT [facility] eGFRcr 91.7 mL/min/1.7 3m*2 01/04/2025 5:47 PM EDT [facility] Comment:Reported eGFRcr in m L/min/1.73m2 is based the CKD-EPI 2020 equation that does not use a race coefficient. Blood Venous blood specimen / Unknown Venipuncture / Unknown 01/04/2025 2:39 PM EDT 01/04/2025 2:39 PM EDT us Gerson Vance MD LAB BLOOD ORDERABLES Final Resul t Performing Organization Address [facility] de Phone Number [facility] [address] [place] [address] * Urinalysis Microscopic Examination (01/04/2025 2:32 PM EDT) Urine Urine specimen obtained by clean catch procedure / Unknown Non-blood Collection / Unknown 01/04/2025 2:32 PM EDT 01/04/2025 2:34 PM EDT us Gerson Vance MD LAB URINE ORDERABLES Final Resul t Performing Organization Address City/[facility] Co de Phone Number [facility] [address] [place] [address] * Albumin-creatinine ratio, urine, random (01/04/2025 2:32 [...] ORDERABLES Final Resul t Performing Organization Address City/[facility]/ZIP Co de Phone Number [facility] [address] [place] [address] * Protein, Random, Urine with Creatinine (01/04/2025 2:32 PM EDT) Protein, Urine 10 mg/dL 01/04/2025 5:44 PM EDT [facility] Creatinine, Urine 209 mg/dL 01/04/2025 5:44 PM EDT [facility] Protein/Creati nine Ratio 0.0 mg/mg Creat 01/04/2025 5:44 PM EDT [facility] Urine Urine specimen obtained by clean catch procedure / Unknown Non-blood Collection / Unknown 01/04/2025 2:32 PM EDT 01/04/2025 2:34 PM EDT us Gerson Vance MD LAB URINE ORDERABLES Final Resul t Performing Organization Address City/[facility]/ZIP Co de Phone Number [facility] [address] [place] [address] * (ABNORMAL) Urinalysis with reflex microscopic (Culture NOT Included) (01/04/2025 2:32 PM EDT) Color, Urine Yellow LAB URINALYSIS - AUTOMATED METHOD [facility]/04/2025 6:[facility] Clarity, Urine Clear LAB URINALYSIS - AUTOMATED METHOD 01/04/2025 6:07 PM [facility] Spec [place], Urine 1.020 1.005 - 1.030 LAB URINALYSIS - AUTOMATED METHOD 01/04/2025 6:07 PM [facility] pH, Urine 5.5 5.0 - 8.0 LAB URINALYSIS - AUTOMATED METHOD 01/04/2025 6:07 PM EDT [facility] Protein, Urine Negative Negative mg/dL LAB URINALYSIS - AUTOMATED METHOD 01/04/2025 6:07 PM [facility] Glucose, Urine Negative Negative mg/dL LAB URINALYSIS - AUTOMATED METHOD 01/04/2025 6:07 PM [facility] Ketones, Urine Trace(A) Negative mg/dL LAB URINALYSIS - AUTOMATED METHOD 01/04/2025 6:07 PM [facility] Blood, Urine Trace(A) Negative LAB URINALYSIS - AUTOMATED METHOD 01/04/2025 6:07 PM [facility] Bilirubin, Urine Negative Negative LAB URINALYSIS - AUTOMATED METHOD 01/04/2025 6:07 PM [facility] Urobilinogen, Urine 1.0 0.2 to 1.0 mg/dL LAB URINALYSIS - AUTOMATED METHOD 01/04/2025 6:07 PM [facility] Leukocytes, Urine Negative Negative LAB URINALYSIS - AUTOMATED METHOD 01/04/2025 6:07 PM [facility] Nitrite, Urine Negative Negative LAB URINALYSIS - AUTOMATED METHOD 01/04/2025 6:07 PM [facility] RBC, Urine 4 - 10(A) 0 to 3 /HPF 01/04/2025 6:07 PM [facility] Comment:This result was prev iously suppressed from the chart. WBC, Urine 0 - 5 0 to 5 /HPF 01/04/2025 6:07 PM [facility] Comment:This result was prev iously suppressed from the chart. Squamous Epithelial Cells 0 - 2 0 to 5 /HPF 01/04/2025 6:07 PM T [facility] Comment:This result was prev iously suppressed from the chart. Hyaline Casts 0 - 2 0 to 5 /LPF 01/04/2025 6:07 PM EDT [facility] Comment:This result was prev iously suppressed from the chart. Bacteria, Urine Negative Negative 01/04/2025 6:07 PM EDT [facility] Comment:This result was prev iously suppressed from the chart. Urine Urine specimen obtained by clean catch procedure / Unknown Non-blood Collection / Unknown 01/04/2025 2:32 PM EDT 01/04/2025 2:34 PM EDT Narrative [facility] - 01/04/2025 6:07 PM EDT Performed by manual method us Gerson Vance MD LAB URINE ORDERABLES Final Resul t [facility] [address] [place] [address] * INJECTION FOR BLADDER XRAY WITHOUT VOIDING, [place] COMPLEX CYSTOMETROGRAM W/VOID PRESS&URETHRAL PROFILE, UROLOGY UDS WITH BASE PERFORMABLE CHARGES (11/24/2024 9:57 AM EDT) Narrative Helene Pal APRN, DNP - 11/24/2024 9:57 AM EDT Helene Pal APRN, DNP 11/29/2024 11:25 AM UDS Date/Time: 11/24/2024 9:57 AM Performed by: Helene Pal APRN, DNP Authorized by: Helene Pal APRN, DNP [place] Protocol: Time out called immediately prior to [...] Last 3 Months Insurance MEDICARE Care Teams Tank Truck Mechanic Relationship Specialty Start Date End Date Ly Morales APRN [address] [place] [id number] PCP - General 12/29/22 Inocencia Hastings APRN, BETO [address] [place] [address] Nurse Practitioner Neurosurgery 07/11/22
--- OUTSIDE RECORDS SUMMARY | 2025-02-07 07:13 | XMS_ITS | Data Portability ---
Author Organization [facility] [employer] Pereyra ADMIN Address [address] [place] [id number] Care Team Providers Care Installment Agent Name Role Phone LY CASTELLANO Primary Care Provider Assessment Encounter Date [...] point. 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 He also had positive smooth muscle antibody and HARMEET previously. Liver biopsy 08/2022 mostly c/w hepatic steatosis with minimal fibrosis. -Will obtain labs from recent [facility] ER visit. -He is immune to hepatitis A & B. - Avoid NSAIDs and alcohol. - Do not take over 2 g of acetaminophen daily. - Discussed weight loss and healthy diet. -Patient advised to not smoke. 4) Constipation: Start Miralax once daily. 5) Nausea: Suspect related to constipation. [email or web address] Not available 03/16/2023 23:23:27 Plan of Treatment Reminders Order Date Submit Date Provider Last Modified By Organization Details Last Modified Time Details Appointments None recorded. [facility] PT[facility]INR [facility] [facility] [place] [address] (Registration ), [address], [place], [address], 08:36:09 hemochroma tosis mutation (hfe), blood/tiss ue [address] (Registration ), [address], [place], [address], 08:36:09 alpha-1-an titrypsin (aat) phenotype, serum [address] (Registration ), [address], [place], [address], 08:36:09 alpha-1-an titrypsin (aat), QN, serum [address] (Registration ), [address], [place], [address], 08:36:09 ceruloplas min, serum 2021 [facility] (Registration ), [address], [place], [address], 17:11:36 igg, quantitati ve, serum 2021 [facility] (Registration ), [address], [place], [address], 17:11:37 liver-kidn ey microsome Ab, serum [address] (Registration ), [address] [facility], [place], [address], 08:36:09 liver fibrosis score panel, hepascore, serum or plasma [address] (Registration ), [address] [facility], [place], [address], 11/10/202 2 08:36:09 mitochondr ial Ab, serum 2021 [facility] (Registration ), [address] [place], [address], 17:11:33 actin smooth muscle Ab, serum 2021 [facility] (Registration ), [address] [place], [address], 15:10:31 hepatitis panel (A+B+C), acute, serum [address] (Registration ), [address] [place], [address], 2 08:36:09 hepatitis B surface Ab, qualitativ e, serum [address] (Registration ), [address] [place], [address], 08:36:10 CBC [address] (Registration ), [address] [place], [address], 08:36:10 CMP, serum or plasma 2021 [facility] (Registration ), [address] [place], [address], 2 02:13:34 hepatitis A Ab, total, serum [address] (Registration ), [address] [place], [address], 2 08:36:10 HARMEET (antinucle ar antibodies ) screen, serum 2021 [facility] (Registration ), [address], [place], [address], 2 17:10:12 Referral pulmonolog ist referral 2021 022 [email or web address] Aquiles Villanueva MD - Pulmonlogist, [address], [address], [place], [address], 2 08:49:48 Procedures None recorded. Surgeries biopsy, liver, ultrasound guided (SURG) [address] (Centralized Scheduling), [address], [place], [address], 2 12:24:18 Imaging PFT, plethysmog radha [address] (Centralized Scheduling), [address], [place], [address], 5 10:29:13 CT, chest, w/o contrast 2022 023 [facility] (Centralized Scheduling), [address], [place], [address], 3 15:42:05 PFT, plethysmog radha [email or web address] (Centralized Scheduling), [address], [place], [address], 3 13:51:51 XR, abdomen [address] (Registration ), [address], [place], [address], 2 08:35:58 US, liver [address] (Centralized Scheduling), [address], [place], [address], 2 08:35:57 Medication Orders pantoprazo le 40 mg tablet,del ayed release 2022 023 [facility], [address] [place] [address] [place] [address] [place] [place], [id number], 4 12:49:00 Miralax 17 gram/dose oral powder 2022 023 [facility], [address] [place] [address] [address], [place], [id number], 3 15:49:37 omeprazole 20 mg capsule,de layed release 2021 023 [facility], [address] [place] [address] [address] [place] [place], [id number], 3 13:12:56 Patient TargetsNo targets recorded. Patient InstructionsNo instructions recorded. 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 1 low Not Available [facility] ([facility]) [address], [place], [address], 06/03/2022 16:28:48 06/03/20 22 06/03/2022 CBC AUTO NO DIFF (HEMO GRAM) HGB 13.9 gm/dL 13.5-1 8.0 Not Available [facility] ([facility]) [address], [place], [address], 06/03/2022 16:28:48 06/03/20 22 06/03/2022 CBC AUTO NO DIFF (HEMO GRAM) HCT 41.7 % 42.0-5 2.0 low Not Available [facility] ([facility]) [address], [place], [address], 06/03/2022 16:28:48 06/03/20 22 06/03/2022 CBC AUTO NO DIFF (HEMO GRAM) MCV 91.6 fL 78-100 Not Available [facility] ([facility]) [address] [facility], [place], [address], 06/03/2022 16:28:48 06/03/20 22 06/03/2022 CBC AUTO NO DIFF (HEMO GRAM) MCH 30.5 pg 27-31 Not Available [facility] ([facility]) [address] [facility], [place], [address], 06/03/2022 16:28:48 06/03/20 22 06/03/2022 CBC AUTO NO DIFF (HEMO GRAM) MCHC 33.3 g/dL 32-36 Not Available [facility] ([facility]) [address] [facility], [place], [address], 06/03/2022 16:28:48 06/03/20 22 06/03/2022 CBC AUTO NO DIFF (HEMO GRAM) RDW 13.3 % 11.5-1 4.0 Not Available [facility] ([facility]) [address] [facility], [place], [address], 06/03/2022 16:28:48 06/03/20 22 06/03/2022 CBC AUTO NO DIFF (HEMO GRAM) platelet count 243 K/uL 150-45 0 Not Available [facility] ([facility]) [address] , [place], [address], 06/03/2022 16:28:48 06/03/20 22 06/03/2022 CBC AUTO NO DIFF (HEMO GRAM) manual differential NO Not Available [facility] ([facility]) [address] , [place], [address], 06/03/2022 16:28:48 06/03/20 22 06/03/2022 PT (PROT HROMB IN TIME) W INR prothrombin time 10.4 secon ds 9.3-11 .4 Not Available [facility] ([facility]) [address] , [place], [address], 06/04/2022 02:12:42 06/03/20 22 06/03/2022 PT (PROT [...] Mecha nical Heart Valve s Not Available [facility] ([facility]) [address] , [place], [address], 06/04/2022 02:12:42 06/03/20 22 06/03/2022 COMP METAB OLIC PANEL sodium 138 mmol/ L 136-14 5 Not Available [facility] ([facility]) [address] [place], [address], 06/04/2022 02:13:33 06/03/20 22 06/03/2022 COMP METAB OLIC PANEL potassium 4.2 mmol/ L 3.6-5. 0 Not Available [facility] ([facility]) [address], [place], [address], 06/04/2022 02:13:33 06/03/20 22 06/03/2022 COMP METAB OLIC PANEL chloride 102 mmol/ L 98-107 Not Available [facility] ([facility]) [address] , [place], [address], 06/04/2022 02:13:33 06/03/20 22 06/03/2022 COMP METAB OLIC PANEL carbon dioxide 29.4 mmol/ L 21.0-3 2.0 Not Available [facility] ([facility]) [address] , [place], [address], 06/04/2022 02:13:33 06/03/20 22 06/03/2022 COMP METAB OLIC PANEL anion gap 10.8 Not Available [facility] ([facility]) [address] , [place], [address], 06/04/2022 02:13:33 06/03/20 22 06/03/2022 COMP METAB OLIC PANEL glucose 102 mg/dL 70-120 Not Available [facility] ([facility]) [address] , [place], [address], 06/04/2022 02:13:33 06/03/20 22 06/03/2022 COMP METAB OLIC PANEL BUN 16 mg/dL 7-18 Not Available [facility] ([facility]) [address] , [place], [address], 06/04/2022 02:13:33 06/03/20 22 06/03/2022 COMP METAB OLIC PANEL creatinine 1.0 mg/dL 0.6-1. 3 Not Available [facility] ([facility]) [address] , [place], [address], 06/04/2022 02:13:33 06/03/20 22 06/03/2022 COMP METAB OLIC PANEL glomerular filtration rate >60 mlper min 60- Not Available [facility] ([facility]) [address], [place], [address], 06/04/2022 02:13:33 06/03/20 22 06/03/2022 COMP METAB OLIC PANEL total protein 7.8 g/dL 6.4-8. 2 Not Available [facility] ([facility]) [address], [place], [address], 06/04/2022 02:13:33 06/03/20 22 06/03/2022 COMP METAB OLIC PANEL albumin 4.6 g/dL 3.4-5. 0 Not Available [facility] ([facility]) [address], [place], [address], 06/04/2022 02:13:33 06/03/20 22 06/03/2022 COMP METAB OLIC PANEL globulin 3.2 Not Available [facility] ([facility]) [address], [place], [address], 06/04/2022 02:13:33 06/03/20 22 06/03/2022 COMP METAB OLIC PANEL alb/glob ratio 1.4 0.7-2 Not Available [facility] ([facility]) [address], [place], [address], 06/04/2022 02:13:33 06/03/20 22 06/03/2022 COMP METAB OLIC PANEL calcium 8.6 mg/dL 8.5-10 .5 Not Available [facility] ([facility]) [address], [place], [address], 06/04/2022 02:13:33 06/03/20 22 06/03/2022 COMP METAB OLIC PANEL bilirubin total 0.38 mg/dL 0.10-1 .00 Not Available [facility] ([facility]) [address], [place], [address], 06/04/2022 02:13:33 06/03/20 06/03/2022 COMP METAB OLIC PANEL AST (SGOT) 26 U/L 0-37 Not Available [facility] ([facility]) [address] [facility], [place], [address], 06/04/2022 02:13:33 06/03/20 22 06/03/2022 COMP METAB OLIC PANEL ALT (SGPT) 74 U/L 0-65 high Not Available [facility] ([facility]) [address] [facility], [place], [address], 06/04/2022 02:13:33 06/03/2006/03/2022 COMP METAB OLIC PANEL alk phosphatase 84 U/L 46-116 Not Available [facility] ([facility]) [address] [facility], [place], [address], 06/04/2022 02:13:33 06/03/20 22 06/05/2022 HARMEET W/REF LUCY IF POSIT CARLOS antinuclear Ab, direct POSITI VE negati ve delta Not Available [facility] ([facility]) [address] [facility], [place], [address], 06/05/2022 17:10:12 06/03/20 22 06/05/2022 HARMEET W/REF LUCY IF POSIT CARLOS anti-ds DNA Ab <1 IU/mL 0-9 Negat carlos <5 Equiv ocal 5 - 9 Posit carlos >9 Not Available [facility] ([facility]) [address] [facility], [place], [address], 06/05/2022 17:10:12 06/03/20 22 06/05/2022 HARMEET W/REF LUCY IF POSIT CARLOS electric installer Ab >8.0 ai 0.0-0. 9 high Not Available [facility] ([facility]) [address] [facility], [place], [address], 06/05/2022 17:10:12 06/03/20 22 06/05/2022 HARMEET W/REF LUCY IF POSIT CARLOS mccall Ab <0.2 ai 0.0-0. 9 Not Available [facility] ([facility]) [address] [facility], [place], [address], 06/05/2022 17:10:12 06/03/20 22 06/05/2022 HARMEET W/REF LUCY IF POSIT CARLOS antisclerode rma-70 Ab <0.2 ai 0.0-0. 9 Not Available [facility] ([facility]) [address] [place], [address], 06/05/2022 17:10:12 06/03/20 22 06/05/2022 HARMEET W/REF LUCY IF POSIT CARLOS sjogren's anti-ss-A <0.2 ai 0.0-0. 9 Not Available [facility] ([facility]) [address] [place], [address], 06/05/2022 17:10:12 06/03/20 22 06/05/2022 HARMEET W/REF LUCY IF POSIT CARLOS sjogren's anti-ss-B <0.2 ai 0.0-0. 9 Not Available [facility] ([facility]) [address] [facility], [place], [address], 06/05/2022 17:10:12 06/03/20 22 06/05/2022 HARMEET W/REF LUCY IF POSIT CARLOS antichromati n Ab <0.2 ai 0.0-0. 9 Not Available [facility] ([facility]) [address] [place], [address], 06/05/2022 17:10:12 06/03/20 22 06/05/2022 HARMEET W/REF LUCY IF POSIT CARLOS anti-eulalio-1 <0.2 ai 0.0-0. 9 Not Available [facility] ([facility]) [address] [place], [address], 06/05/2022 17:10:12 06/03/20 22 06/05/2022 HARMEET W/REF LUCY IF POSIT CARLOS anti-centrom ere B antibodies <0.2 ai 0.0-0. 9 Not Available [facility] ([facility]) [address], [place], [address], 06/05/2022 17:10:12 06/03/20 22 06/05/2022 HARMEET W/REF [...] ----- ----- ----- ----- --- ----- ---- TOWER SUPERVISOR Mixed Conne ctive Tissu e Disea se 95% (U1 nRNP, SLE 30 - 50% anti- ribon ucleo prote in) Polym yosit is and/o r [place] tomyo sitis 20% ----- ----- ----- ----- - ----- ----- ----- ----- ---- ----- ---- Scl-7 0 (anti DNA Scler oderm a (diff use) 20 - 35% topoi maritza ase) Crest 13% ----- ----- ----- ----- - ----- ----- ----- ----- ---- ----- ---- Eulalio-1 Polym yosit is and/o r [place] tomyo sitis 20 - 40% ----- ----- ----- ----- - ----- ----- ----- ----- ---- ----- ---- Centr omere B Scler oderm a - Crest varia nt 80% Perfo rmed at: [facility] [place] [address] [facility], [place] [address] Lab Direc tor: Roland ludwig PhD, Phone : [phone] Not Available [facility] ([facility]) [address] [facility], [place], [address], 06/05/2022 17:10:12 06/03/20 22 06/09/2022 ACTIN (SMOO [...] bilia ry cirrh osis. [facility] at: [facility] [address] Lab Direc tor: Roland ludwig PhD, Phone : [phone] Not Available [facility] ([facility]) [address] [facility], [place], [address], 06/09/2022 15:10:31 06/03/20 22 06/17/2022 OLIVIA FIBRO SURE fibrosis score 0.06 0.00-0 .21 Not Available [facility] ([facility]) [address] [facility], [place], [address], 06/17/2022 17:11:29 06/03/20 22 06/17/2022 OLIVIA FIBRO SURE fibrosis stage Commen t F0 - No fibro sis Not Available [facility] ([facility]) [address] [place], [address], 06/17/2022 17:11:29 06/03/20 22 06/17/2022 OLIVIA FIBRO SURE steatosis score 0.81 0.00-0 .30 high Not Available [facility] ([facility]) [address] [facility], [place], [address], 06/17/2022 17:11:29 06/03/20 22 06/17/2022 OLIVIA FIBRO SURE steatosis grade Commen t S3 - Marke d or Sever e Steat osis Not Available [facility] ([facility]) [address] [facility], [place], [address], 06/17/2022 17:11:29 06/03/20 22 06/17/2022 OLIVIA FIBRO SURE olivia score 0.50 0.25 high Not Available [facility] ([facility]) [address] [facility], [place], [address], 06/17/2022 17:11:29 06/03/20 22 06/17/2022 OLIVIA FIBRO SURE olivia grade Commen t N1 - Borde rline or proba ble OLIVIA Not Available [facility] ([facility]) [address] [facility], [place], [address], 06/17/2022 17:11:29 06/03/20 22 06/17/2022 OLIVIA FIBRO SURE height 73 in Not Available [facility] ([facility]) [address] [place], [address], 06/17/2022 17:11:29 06/03/20 22 06/17/2022 OLIVIA FIBRO SURE weight 232 lbs Not Available [facility] ([facility]) [address] [place], [address], 06/17/2022 17:11:29 06/03/20 22 06/17/2022 OLIVIA FIBRO SURE alpha 2-macroglobu jim, qn 135 mg/dL 110-27 6 Not Available [facility] ([facility]) [address] [place], [address], 06/17/2022 17:11:29 06/03/20 22 06/17/2022 OLIVIA FIBRO SURE haptoglobin 214 mg/dL 17-317 Not Available [facility] ([facility]) [address] [place], [address], 06/17/2022 17:11:29 06/03/20 22 06/17/2022 OLIVIA FIBRO SURE apolipoprote in A-1 93 mg/dL 101-17 8 low Not Available [facility] ([facility]) [address] [place], [address], 06/17/2022 17:11:29 06/03/20 22 06/17/2022 OLIVIA FIBRO SURE bilirubin, total 0.2 mg/dL 0.0-1. 2 Not Available [facility] ([facility]) [address] [place], [address], 06/17/2022 17:11:29 06/03/20 22 06/17/2022 OLIVIA FIBRO SURE GGT 37 IU/L 0-65 Not Available [facility] ([facility]) [address] [place], [address], 06/17/2022 17:11:29 06/03/20 22 06/17/2022 OLIVIA FIBRO SURE ALT (SGPT) p5p 62 IU/L 0-55 high Not Available [facility] ([facility]) [address] [place], [address], 06/17/2022 17:11:29 06/03/20 22 06/17/2022 OLIVIA FIBRO SURE AST (SGOT) p5p 27 IU/L 0-40 Not Available [facility] ([facility]) [address] [place], [address], 06/17/2022 17:11:29 06/03/20 22 06/17/2022 OLIVIA FIBRO SURE cholesterol, total 176 mg/dL 100-19 9 Not Available [facility] ([facility]) [address] [place], [address], 06/17/2022 17:11:29 06/03/20 22 06/17/2022 OLIVIA FIBRO SURE glucose, serum 105 mg/dL 70-99 high Not Available [facility] ([facility]) [address] [place], [address], 06/17/2022 17:11:29 06/03/20 22 06/17/2022 OLIVIA FIBRO SURE triglyceride s 228 mg/dL 0-149 high Not Available [facility] ([facility]) [address], [place], [address], 06/17/2022 17:11:29 06/03/20 22 06/17/2022 OLIVIA FIBRO SURE interpretati ons: Commen t . Quant itati ve resul ts of 10 bioch emica ls in combi natio n with age, gende r, heigh t, and weigh t, are josh zed using a compu tatio nal algor ithm to provi de a quant itati ve surro gate marke r (0.0- 1.0) of liver fibro sis ([place] vir F0-F4 ), hepat ic steat osis [...] had signi fican t NAFLD fibro sis ([place] vir F2-F4 ) and 11% had cirrh [...] y of 50%(3 ). . Not Available [facility] ([facility]) [address] , [place], [address], 06/17/2022 17:11:29 06/03/20 22 06/17/2022 OLIVIA FIBRO [...] Stage F4 - Cirrh osis Not Available [facility] ([facility]) [address] , [place], [address], 06/17/2022 17:11:29 06/03/20 22 06/17/2022 OLIVIA FIBRO [...] or Sever e Steat osis Not Available [facility] ([facility]) [address] , [place], [address], 06/17/2022 17:11:29 06/03/20 22 06/17/2022 OLIVIA FIBRO SURE olivia scoring Commen t . 0.25 = N0 - Not OLIVIA 0.50 = N1 - Borde rline or proba ble OLIVIA 0.75 = N2 - OLIVIA Not Available [facility] ([facility]) [address], [place], [address], 06/17/2022 17:11:29 06/03/20 22 06/17/2022 OLIVIA FIBRO [...] ction s of fibro sis. Not Available [facility] ([facility]) [address], [place], [address], 06/17/2022 17:11:29 06/03/20 22 06/17/2022 OLIVIA FIBRO SURE comment: Commen t . This test was devel oped and its perfo rmanc e sindhu cteri stics deter mined by [facility]. It has not been clear ed or appro tatiana by the Food and Drug Admin istra tion. The FDA has deter mined that such clear ance or appro melody is not neces ino. . For quest ions regar ding this repor t pleas e conta ct custo dwayne servi ce at [phone]. . Refer ences : . 1. Vivian [...] [facility] [place] [address] [facility] , [place] [address] Lab Direc tor: Chela conley MD, Phone : [phone] Not Available [facility] ([facility]) [address], [place], [address], 06/17/2022 17:11:29 06/03/20 22 06/17/2022 A1A DEFIC [...] matio n and Comme nts. Not Available [facility] ([facility]) [address], [place], [address], 06/17/2022 17:11:30 06/03/20 22 06/17/2022 A1A DEFIC [...] ders to discu ss resul ts at [phone]- GENE (7344 ). . Test Detai ls: Two varia [...] es in the SERPI NA1 gene (NM_0 11059 .4) was perfo rmed by multi plex allel e-spe cific PCR ampli ficat ion follo wed by gel elect ropho resis . Resul ts must be combi jerad with clini maryma infor matio n for the most accur [...] Slick live JM, Ashley COBB, Emanuel Ramos, Bryanna Ray. The Diagn osis and Manag ement of Alpha -1 Antit rypsi n Defic iency in the Adult . Chron ic Obstr Pulm Dis. 2016 Jan 13;3(3 ):668 -682. doi: 10.15 326/j copdf .3.3. 2014. 0182. PMID: 66774 891; PMCID : [id number] . Ashley COBB, Jose landry V, Grey [...] .nih. gov/b ooks/ NBK15 19/ Not Available [facility] ([facility]) [address] [facility], [place], [address], 06/17/2022 17:11:30 06/03/20 22 06/17/2022 A1A DEFIC ENCY PROFI LE electronical ly signed by: Blu whitehead, PhD, [facility] Not Available [facility] ([facility]) [address] [facility], [place], [address], 06/17/2022 17:11:30 06/03/20 22 06/17/2022 A1A DEFIC ENCY PROFI LE a1a rfx to phenotype Blu bailey A1A Pheno type is indic ated for this speci men. Perfo rmed at: [facility] [place] [address] [facility] [place] [address] Lab Direc tor: Chela conley MD, Phone : [phone] Perfo rmed at: [facility] [address] [place] [address] Lab Direc tor: Koffi Byrd [facility] , Phone : [phone] Not Available [facility] ([facility]) [address] [facility], [place], [address], 06/17/2022 17:11:30 06/03/20 22 06/17/2022 A1A DEFIC ENCY PROFI LE demks-0-fdsj trypsin,seru m 71 mg/dL 95-164 low Not Available [facility] ([facility]) [address] [facility], [place], [address], 06/17/2022 17:11:30 06/03/20 22 06/17/2022 A1A DEFIC [...] matio n and Comme nts. Not Available [facility] ([facility]) [address], [place], [address], 06/17/2022 17:11:31 06/03/20 22 06/17/2022 A1A DEFIC [...] ders to discu ss resul ts at [phone]- GENE (6753 ). . Test Detai ls: Two varia [...] es in the SERPI NA1 gene (NM_0 [id number] .4) was perfo rmed by multi plex [...] 10.15 326/j copdf .3.. 2014. 0182. PMID: 80705 891; PMCID : [id number] 77227 . Ashley COBB, Jose landry V, Grey PONCE. Alpha -1 Antit rypsi n Defic iency . 2005Jun 05 Updat ed 2019December 28 . In: Nba MP, Jose salazar HH, Nicholas RA, et al., frandy rs. GeneR gladis s(R) Inter net . Seatlynn vasquez (SARA): [facility] of [place]; 1992- 2020. Avail able from: https ://gold conrad.ncb i.nlm .nih. gov/b ooks/ NBK15 19/ Not Available [facility] ([facility]) [address] [facility], [place], [address], 06/17/2022 17:11:31 06/03/20 22 06/17/2022 A1A DEFIC ENCY PROFI LE electronical ly signed by: Blu whitehead, PhD, FACMG Not Available [facility] ([facility]) [address] [facility], [place], [address], 06/17/2022 17:11:31 06/03/20 22 06/17/2022 A1A DEFIC ENCY PROFI LE a1a phenotype confirmation MZ Not Available [facility] ([facility]) [address] [facility], [place], [address], 06/17/2022 17:11:31 06/03/20 22 06/17/2022 A1A DEFIC ENCY PROFI LE a1a interpertati on Blu bailey Pheno type testi eze, using Isoel ectri c focus ing (IEF) metho dol ogy, shows confi rmati on of the A-1-A DNA Genot ype test resul t. Perfo rmed at: - [facility] [address] [id number] Lab Direc tor: Chela conley MD, Phone : [phone] Not Available [facility] ([facility]) [address] [facility], [place], [address], 06/17/2022 17:11:31 06/03/20 22 06/17/2022 A1A DEFIC ENCY PROFI LE a1a rfx to phenotype Commen t A1A Pheno type is indic ated for this speci men. Perfo rmed at: BN - [facility] [address] [place] [address] 6812 Lab Direc tor: Chela conley MD, Phone : [phone] Perfo rmed at: - [facility] rp RTP [address] [place] [address] 0150 Lab Direc tor: Koffi Byrd [facility] , Phone : [phone] Not Available [facility] ([facility]) [address] [facility], [place], [address], 06/17/2022 17:11:31 06/03/20 22 06/17/2022 A1A DEFIC ENCY PROFI LE gqszq-2-lmqs trypsin,seru m 71 mg/dL 95-164 low Not Available [facility] ([facility]) [address] [facility], [place], [address], 06/17/2022 17:11:31 06/03/20 22 06/17/2022 HEP B S AB PERRY hep B surface Ab 27.3 mIU/m L immuni ty>9.9 Statu s of Immun ity Anti- HBs Level ----- ----- ----- --- ----- ----- ---- Incon siste nt with Immun ity 0.0 - 9.9 Consi stent with Immun ity >9.9 Perfo rmed at: [facility] n [address] [facility], [place] [address] 1269 Lab Direc tor: Roland ludwig PhD, Phone : [phone] Not Available [facility] ([facility]) [address] [facility], [place], [address], 06/17/2022 17:11:32 06/03/20 22 06/17/2022 MITOC HONDR IAL ANTIB ODIES mitochondria l (M2) Ab <20.0 units 0.0-20 .0 Negat carlos 0.0 - 20.0 Equiv ocal 20.1 - 24.9 Posit carlos >24.9 . Mitoc hondr ial (M2) Antib odies are found in 90-96 % of patie nts with prima ry bilia ry cirrh osis. Perfo rmed at: [facility] n [address] [facility], [place] [address] 1268 Lab Direc tor: Roland ludwig PhD, Phone : [phone] Not Available [facility] ([facility]) [address] [facility], [place], [address], 06/17/2022 17:11:33 06/03/20 22 06/17/2022 LIVER -KIDN [...] ic HCV infec tion. Perfo rmed at: [facility] n [address] [facility], [place] [address] 126 Lab Direc tor: Roland ludwig PhD, Phone : [phone] Not Available [facility] ([facility]) [address] [facility], [place], [address], 06/17/2022 17:11:34 06/03/20 22 06/17/2022 HERED ITARY [...] ders to discu ss resul ts at 6-000 -345- GENE (5209 ). . Test Detai ls: Three varia nts josh zed: c.845 G>A (p.Cy s282T yr), commo nly refer red to as C282Y c.187 C>G (p.Hi s63As p), commo nly refer red to as H63D c.193 A>T (p.Se r65Cy s), commo nly refer red to as S65C . Metho ds/Li mitat ions: DNA Josh sis of the HFE gene (NM_[id number] .[id number]) was perfo rmed by PCR ampli [...] 3. doi: 10.10 /lucien p.243 30. PMID: 08591 290; PMCID : PMC31 55383 . Devan G, Godfrey vines P, Kathya [...] hg.20 15.12 8. Epub 2014 8. PMID: 33227 218; PMCID : PMC49 94765 . . Sapphire silver, PhD, FACMG Sanjay Pa , PhD Roderick patel, PhD, FACMG Steve whitehead, PhD, FACMG Shar sifuentes, PhD, FACMG W Arben Nova, PhD, FACMG Myesha Spencer, PhD, FACMG Harjit live, PhD, FACMG Perfo rmed at: TG - Autumn smith RTP [address] [facility] , [place] [address] 7243 Lab Direc tor: Koffi Rochelle [facility] , Phone : [phone] Not Available [facility] ([facility]) [address], [place], [address], 06/17/2022 17:11:35 06/03/20 22 06/17/2022 CERUL OPLAS MIN ceruloplasmi n 21.9 mg/dL 16.0-3 1.0 Perfo rmed at: - [facility] n [address] [place] [address] 1269 Lab Direc tor: Roland ludwig PhD, Phone : [phone] Not Available [facility] ([facility]) [address] [place], [address], 06/17/2022 17:11:36 06/03/20 22 06/17/2022 IGG IgG 776 mg/dL 603-16 13 Perfo rmed at: [facility] n [address] [place] [address] 1269 Lab Direc tor: Roland ludwig PhD, Phone : [phone] Not Available [facility] ([facility]) [address] [place], [address], 06/17/2022 17:11:37 06/03/20 22 06/17/2022 HEP A AB, TOTAL hep A Ab, total Positi ve negati ve delta Perfo rmed at: [facility] [address] [place] [address] 1261 Lab Direc tor: Roland ludwig PhD, Phone : [phone] Not Available [facility] ([facility]) [address] [facility], [place], [address], 06/17/2022 17:11:39 06/03/20 22 06/18/2022 ACUTE HEPAT ITIS PANEL hep A Ab, IgM Negati ve negati ve Not Available [facility] ([facility]) [address] [facility], [place], [address], 06/18/2022 15:15:27 06/03/20 22 06/18/2022 ACUTE HEPAT ITIS PANEL HBsAg screen Negati ve negati ve Not Available [facility] ([facility]) [address], [place], [address], 06/18/2022 15:15:27 06/03/20 22 06/18/2022 ACUTE HEPAT ITIS PANEL HBsAg confirmation TNP TEST NOT PERFO RMED Not Available [facility] ([facility]) [address] [facility], [place], [address], 06/18/2022 15:15:27 06/03/20 22 06/18/2022 ACUTE HEPAT ITIS PANEL hep B core Ab, IgM NEGATI VE negati ve Not Available [facility] ([facility]) [address] [facility], [place], [address], 06/18/2022 15:15:27 06/03/20 22 06/18/2022 ACUTE HEPAT ITIS PANEL HCV Ab <0.1 s/co_ ratio 0.0-0. 9 Not Available [facility] ([facility]) [address] [facility], [place], [address], 06/18/2022 15:15:27 10/14/19 23 10/13/2022 ACCUL A [...] CoV-2 RNA (RT-P CR, NAAT) Not Available [facility] ([facility]) [address] [facility], [place], [address], 10/13/2022 15:12:31 10/14/19 23 10/13/2022 ACCUL A SARSC OV2 PCR sars2 accula lot # [id number] Not Available [facility] ([facility]) [address] [facility], [place], [address], 10/13/2022 15:12:31 10/14/19 23 10/13/2022 ACCUL A SARSC OV2 PCR sars2 accula expiration date 2022 Not Available [facility] ([facility]) [address] [facility], [place], [address], 10/13/2022 15:12:31 10/14/19 23 10/13/2022 ACCUL A SARSC OV2 PCR internal control accula sars2 OK positi ve Not Available [facility] ([facility]) [address] [facility], [place], [address], 10/13/2022 15:12:31 06/04/20 22 06/03/2022 XR, abdom en, 1 view [facility] Hospit al [address] [place] [address] Phone: Fax: Name: BILL BENÍTEZ Exam Date: 2021 : [birth year] Age 36 Gender : M Access ion: [id number] Physic joe: MARLON PINTO Facili [...] you for referr nacho BETTS VIVEKBILL to [facility]. Legall y authen ticate d by POPE DANN Ramos 2021-08 16:21: 46 CC'ed Logic: Orderi ng Provid er: NAKITA MASNO Attend ing Provid er: NAKITA MASON Referr ing Provid er: NAKITA MASON Admitt ing Provid er: NAKITA MASON [facility] [address] [place] [address], [place], [address], 06/05/2022 07:15:30 06/20/20 22 06/20/2022 US, liver [facility] Hospit [facility] [address] [place] [address] Phone: Fax: Name: BLIL BENÍTEZ Exam Date: 2021 : [birth year] Age 36 Gender : M Access ion: [id number] Physic joe: NAKITA Dominique MARLON Facili ty: [facility] Facili ty HSV: Outpat ient Exam: [...] Thank you for referr BILL Calderon to [facility] al. Legall y authen ticate d by DEBORAH GARRETT 2021-08 11:02: 03 CC'ed Logic: Orderi ng Provid er: NAKITA MASON Attend ing Provid er: NAKITA MASON Referr ing Provid er: NAKITA Ulrich ing Provid er: NAKITA tineo[address] [place] [address] - Physical Therapy [address] [place] [address], [address], 06/20/2022 15:03:14 08/05/20 22 08/05/2022 CT BX of liver -need le [facility] [place] [address] Phone: Fax: Name: ISHAN BENÍTEZE Exam Date: 2021 : [birth year] Age 36 Gender : M Access ion: [id number] [id number] Physic joe: JOSE DANIELMIKAEL MARLON Dominique Facili ty: [facility] Facili ty HSV: Outpat ient Exam: [...] Thank you for referr [facility]ILL [facility] Legall y authen ticate d by DEBORAH GARRETT 2021-08 09:57: 45 CC'ed Logic: Orderi ng Provid er: NAKITA MASON Attend ing Provid er: NAKITA MASON Referr ing Provid er: NAKITA MASON Admitt ing Provid er: NAKITA MASON [email or web address] [address] [facility], [place], [address], 08/05/2022 13:51:40 09/25/19 23 09/25/2022 XR, chest , 2 view [facility] [address] [place] [address] Phone: Fax: Name: BILL BENÍTEZ Exam Date: : [birth year] Age 36 Gender : M Access ion: [id number] Physic joe: AQUILES VILLANUEVA Facili ty: [facility] Facili ty HSV: Outpat ient Exam: CHEST [...] Thank you for referr nacho DOYLEBILL to [facility] Hospit al. Legall y authen ticate d by YVETTE CROFT 09-25 13:16: 32 CC'ed Logic: Orderi ng Provid er: NOLA KWAN Attend ing Provid er: NOLA KWAN Referr ing Provid er: NOLA KWAN Admitt ing Provid er: [facility]A [facility] [address], [place], [address], 09/25/2022 13:47:39 10/21/19 23 10/20/2022 CT, chest , w/o contr ast [facility] Hospit al [address] [place] [address] Phone: Fax: Name: BILL BENÍTEZ Exam Date: 023 : [birth year] Age 36 Gender : M Access ion: [id number] Physic joe: AQUILES VILLANUEVA Facili ty: [facility] Facili ty HSV: Outpat ient Exam: [...] Thank you for referr BILL Calderon to [facility]. Legall y authen ticate d by POPE DANN Ramos 0 10-20 15:28: 54 CC'ed Logic: Orderi ng Provid er: KOURA FIRAS Attend ing Provid er: KOURA FIRAS Admitt ing Provid er: KOURA FIR[facility] [address] [place] [address], [address], 10/21/2022 10:01:28 Result Notes Documentation Provider Name and Address Organization Details Recorded Time Xr, Abdomen, 1 View : [facility] [address] [place] [address] Name: BILL TESFAYE Exam Date: 06/03/2022 : 1985 Age 36 Gender: M Physician: MARLON UP Facility: [facility] Facility HSV: Outpatient Exam: ABD KUB 1V [...] Thank you for referring BILL TESFAYE to [facility]. Legally authenticated by POPE DANN Ramos 2022-06-03 16:21:46 CC'ed Logic: Ordering Provider: ANNEL MASON Attending Provider: ANNEL MASON Referring Provider: ANNEL MASON Admitting Provider: ANNEL Up NP [address] [place], [address], [facility] & [place] 06/04/2022 16:25:11 Xr, Chest, 2 View : [place] [address] Name: BILL TESFAYE Exam Date: 09/25/2022 : 1985 Age 36 Gender: M Physician: AQUILES VILLANUEVA Facility: [facility] Facility HSV: Outpatient Exam: CHEST 2 VIEWS [...] Thank you for referring BILL TESFAYE to [facility]. Legally authenticated by RAMY CROFT 2022-09-25 13:16:32 CC'ed Logic: Ordering Provider: NOLA KWAN Attending Provider: NOLA KWAN Referring Provider: NOLA KWAN Admitting Provider: NOLA Villanueva MD [address] [place], [address], [facility] - NT [facility] & [place] 09/25/2022 13:47:39 Ct, Chest, W/o Contrast : [place] [id number] Name: BILL TESFAYE Exam Date: 10/20/2022 : 1985 Age 36 Gender: M Physician: AQUILES VILLANUEVA Facility: [facility] Facility HSV: Outpatient Exam: CT CHEST W/O [...] Thank you for referring BILL TESFAYE to [facility]. Legally authenticated by POPE DANN Ramos 2022-10-20 15:28:54 CC'ed Logic: Ordering Provider: NOLA KWAN Attending Provider: NOLA KWAN Admitting Provider: NOLA Villanueva MD [address], [place], [address], [place] - [facility] - [place] & [place] 10/21/2022 10:01:28 Problems Name Problem SNOMED Code Status Onset Date Resolution Date Notes Provider Name and Address Organization Details Recorded Time Gastro-esopha geal reflux disease with esophagitis 425115838 Active 2022 Praveen Cifuentes PA-C [address], [place], [address] , [place] [facility] - [place] & [place] 3 12:21:58 Pmnnv-4-mrhmy rypsin deficiency 90977578 Active 2022 Aquiles Villanueva MD [address] [facility], [place], [address] , [place] - [facility] - [place] & [place] 3 13:41:54 Pulmonary emphysema 94353132 Active 2022 Aquiles Villanueva MD [address] [facility], [place], [address] , [place] [facility] [place] & [place] 3 13:41:59 Liver function tests outside reference range 169633719 Active 2022 Aquiles Villanueva MD [address] [facility], [place], [address] , [place] [facility] & [place] 3 13:42:21 Constipation 26880129 Active 2022 Praveen Cifuetnes PA-C [address] [facility], [place], [address] , [place] [facility] & [place] 3 14:27:27 Heartburn 38574095 Active 2022 Praveen Cifuentes PA-C [address] [facility], [place], [address] , [place] [facility] & [place] 3 14:27:27 Dysphagia 14410788 Active 2022 Praveen Cifuentes PA-C [address] [facility], [place], [address] , [place] [facility] & [place] 3 14:27:27 Liver enzymes level above reference range 344862374 Active 2022 Praveen Cifuentes PA-C [address] [facility], [place], [address] , [place] [facility] & [place] 3 14:27:28 Non-alcoholic fatty liver 366662477 Active [address], [place], [address] , [facility] & [place] 3 14:27:28 Acid reflux 168708137 Active 2022 Praveen Cifuentes PA-C [address] [facility], [place], [address] , [facility] & [place] 3 14:32:03 Problem Notes None recorded. Procedures Surgical History Date Name Laterality Status Provider Name and Address Organization Details Recorded Time 2022 esophagogastroduodenoscopy completed Eloise [facility] & [place] 3 13:11:51 Imaging Results None recorded. Procedure Notes None recorded. Medical Equipment None Reported. Allergies Allergen ID Allergen Name Allergen Category Reaction Reaction Severity Criticality Documentation Date Start Date Code Code System Note Provider Name and Address Organization Details Recorded Time 74366 Product containin g penicilli n (product) medicatio n Not available Not available Not available 06/03/2022 12899 8001 SNOMED Cecille Tyler [facility] & [place] 2 14:05:37 85118 tizanidin e medicatio n Not available Not available Not available 06/03/2022 36575 RxNorm Cecille Tyler [facility] & [place] 2 14:05:43 Medications Name Sig Start Date [...] Address Organization Details Last Updated DateTime 3 405339. 3 g 29.4 kg/m2 185.42 cm 97.7 [degF] 98 % 98 % 79 /min 132 mm[Hg] 80 mm[Hg] Eloise MUSTAFA [facility] 3 13:13:39 Date Recorded Body height Body mass index (BMI) Body weight Body temperature Oxygen saturation Oxygen saturation in Arterial blood by Pulse oximetry Heart rate Systolic blood pressure Diastolic blood pressure Provider Name and Address Organization Details Last Updated DateTime 3 185.42 cm 28.9 kg/m2 28366.7 3 g 97.7 [degF] 97 % 97 % 99 /min 127 mm[Hg] 83 mm[Hg] Eloise MUSTAFA [facility] & [place] 3 13:59:45 Date Recorded Body height Body mass index (BMI) Body weight Body temperature Heart rate Oxygen saturation Oxygen saturation in Arterial blood by Pulse oximetry Systolic blood pressure Diastolic blood pressure Provider Name and Address Organization Details Last Updated DateTime 3 185.42 cm 26 kg/m2 78409.4 2 g 98.1 [degF] 83 /min 99 % 99 % 121 mm[Hg] 73 mm[Hg] Regla POPE [facility] & [place] 13:47:20 Date Recorded Body weight Heart rate Systolic blood pressure Diastolic blood pressure Provider Name and Address Organization Details Last Updated DateTime 06/03/2022 413727.43 g 69 /min 161 mm[Hg] 93 mm[Hg] Cecille POPE [facility] & [place] 06/03/2022 14:06:02 Date Recorded Body weight Heart rate Systolic blood pressure Diastolic blood pressure Provider Name and Address Organization Details Last Updated DateTime 07/01/2022 843039.65 g 82 /min 147 mm[Hg] 100 mm[Hg] Cecille Tyler [facility] & [place] 07/01/2022 10:23:53 Social History Question Answer Notes LastModified by Scryer Details LastModified Time Tobacco Smoking Status Never [facility]oker [facility] [place] 09/25/2022 13:11:32 What Is Your Level Of Caffeine Consumption? Heavy Information not available 03/16/2023 Sex: Male Functional Status Question Answer Note LastModified by Scryer Details LastModified Time Do you use any illicit or recreational drugs? No [email or web address] Information not available 09/25/2022 What is your level of alcohol consumption? None [email or web address] Information not available 09/25/2022 Mental Status None recorded. Family History Relationship Description Onset Age of this Age Resolved Age Notes LastModified by Organization Details LastModified Time Father No current problems or disability [email or web address] Not available 09/25 13:11:06 Mother No current problems or disability [email or web address] Not available 09/25 13:11:06 Medical History No medical history recorded. Past Encounters Encounter ID Performer Location Encounter Start Date Encounter Closed Date Diagnosis/Indication Diagnosis SNOMED-CT Code Diagnosis ICD10 Code Diagnosis Note [id number] Marlon Up NP [facility] [address] [place] [address] 06/03/2022 13:41:49 06/03/2022 15:20:05 Liver enzymes level above reference range 857327218 R74.01 - labs and liver ultrasound ordered today- follow-up in 4 weeks to discuss Constipation 89176073 K5 9.00 - Discussed Miralax bowel purge, then take once daily or as needed- abdominal xray ordered- consider Linzess if no improvemen t Heartburn 13340198 R12 - increase omeprazole to twice daily- may continue famotidine as needed- EGD scheduled- Also see scanned GERD-HRQL Questionna alyx Dysphagia 07283099 R13.1 0 - feels like food gets stuck several times per month- EGD scheduled [id number] Marlon Up NP [facility] [address] [place] [address] 07/01/2022 10:17:23 07/01/2022 11:16:42 Constipation 46001212 K59.00 - continue MiraLax- increase water and fiber in diet increase activity level Heartburn 49399085 R12 - increase omeprazole to twice daily- may continue famotidine as needed- EGD scheduled- Also see scanned GERD-HRQL Questionna alyx Dysphagia 01847009 R13.1 0 - feels like food gets stuck several times per month- EGD scheduled Non-alcoho lic fatty liver 763060025 K76.0 - F0, S3- Immune to Hep A and Hep B- Avoid NSAIDs and alcohol.- Do not take over 2 g of acetaminop hen daily.- Discussed weight loss and healthy diet. 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 Ids52Tmg)- detected heterozygo us Alpha-1-an titrypsin deficiency 82495352 E88.01 - 1096 g>a= Z allele detected- phenotype MZ- serum result 71- discussed with patient explained genetic testing need for biological children- referral placed to pulmonolog y. Denies respirator y symptoms at this time- was also found to have elevated HARMEET (see patient case 06/09/2022 for rheumatolo gy referral) Liver enzy mes level above reference range 436949423 R74.01 - MELD 3.0- 6- actin smooth muscle antibody was also mildly elevated- discussed with patient possibilit y of autoimmune hepatitis is well- liver biopsy scheduled [id number] Aquiles Villanueva MD [address] [place] [address] 09/25/2022 13:00:26 09/25/2022 13:51:51 Llpuw-9-zspdmmzjdiz deficiency 40075737 E88.01 Patient had alpha-1 antitrypsi n phenotype [...] Liver func tion tests outside reference range 440155989 R94.5 Patient to continue follow-up with the GI service and their recommenda tions. [id number] Aquiles Villanueva MD [address] [place] [address] 10/30/2022 13:50:37 10/30/2022 14:24:46 Zmxgs-4-hktngvocfcf deficiency 87283054 E88.[address] report of CT of [...] Liver func tion tests outside reference range 958631530 R94.5 Patient to continue follow-up with the GI service and their recommenda tions. [id number] Praveen Cifuentes PA-C [facility] [address] [facility] [address] [place] [address] 03/16/2023 13:42:31 03/16/2023 14:28:43 Constipation 02047270 K59.00 Dysphagia 15151549 R13.1 0 Non-alcoho lic fatty liver 651514670 K76.0 Carrier of hemochromatosis 0954572729 9103 Z14.8 Alpha-1-an titrypsin deficiency 72197655 E88.01 Liver enzy mes level above reference range 005879713 R74.01 Gastro-eso phageal reflux disease with esophagitis 248210016 K21.00 Health Concerns Section Related Observation LastModified by Organization Detai ls LastModified Time None Recorded Concern Status LastModified by Organization Details LastModified Time None Recorded Advance Directives Directive None Recorded Payers Insurance Date Sequence Insurance Name Policy Number Policy Rojas Covered Member ID Rojas Member ID Guarantor Name 05/04/2023 1 [facility] Bill Tesfaye [id number] Bill Tesfaye Notes Date Note Type Note Provider Name and Address Organization Details Recorded Time 06/03/2022 text/html Patient is a 36-year-old male referred to us from [facility] primary care, yL Castellano APRN related to elevated liver enzymes. [...] vomiting or hematemesis. Marlon Up, EDWIN [address] [facility], [place], [address], [facility] - [place] & [place] 06/03/2022 15:27:39 07/01/2022 text/html (06/03/22) Alyssa sifuentes is a 36-year-old male referred to us from [facility] primary care, Ly Castellano APRN related [...] hematochezia. Marlon Up NP [address], [place], [address], [facility] & [place] 07/01/2022 15:44:12 09/25/2022 text/html Patient presents to [...] referred for further evaluation. Aquiles Villanueva MD [address], [place], [address], [facility] & [place] 09/25/2022 13:46:22 10/30/2022 text/html Patient presents to [...] his weight or appetite. Aquiles Villanueva MD [address], [place], [address], [place] [facility] [place] [facility] [place] 10/30/2022 14:41:36 03/16/2023 text/html (06/03/22) Alyssa sifuentes is a 36-year-old male referred to us from [facility] primary care, Ly Castellano APRN related [...] with occasional liquid stools. Praveen Cifuentes PA-C [address], [place], [address], [place] [facility] [place] [facility] [place] 03/16/2023 23:23:59
--- OUTSIDE RECORDS SUMMARY | 2025-02-07 07:13 | XMS_ITS | Encounter Summary ---
Author Organization Healthcare Address [address] [place] [address] Care Team Providers Care Cook Fish Eggs Name Role Phone Mir Javier MD Primary Care Provider [phone] Inocencia Hastings PULVI MIXER OPERATOR, DNP Unavailable [phone] Ly Morales PULVI MIXER OPERATOR Primary Care Provider [phone] Encounter Details Date Type Department Care Team (Late st Contact Info) Description 06/24/2022 Orders Only External Location [address] [place] [address] Dimple Soliz, PULVI MIXER OPERATOR [address] [facility] [address] [facility] [address] [place] [address] Social History Tobacco Use Types [...] Description 03/13/2025 9:00 AM EDT [facility] Visit [facility] [address] [place] [address] Helene Pal, PULVI MIXER OPERATOR, DNP [address] [place] [address] documented as of this encounter Procedures Procedure Name Priority Date/Time Associated Diagnosis Comments US OUTSIDE IMAGES 06/24/2022 1:57 PM EST documented in this encounter Results * US OUTSIDE IMAGES (06/24/2022 1:57 PM EST) Anatomical Region Laterality Modality Ultrasound 06/24/2022 1:57 PM EST us Dimple Soliz PULVI MIXER OPERATOR IMG US PROCEDURES Elicia l Result documented in this encounter Visit Diagnoses Not on filedocumented in this encounter Additional Health Concerns Assessment Noted Time A fall risk assessment has been complete d for the patient 12/12/2021 2:44 PM EDT documented as of this encounter Care Teams Cook Fish Eggs Relationship Specialty Start Date End Date Mir Javier MD [address] [place] [address] PCP - General 12/21/20 12/28/22 Ly Morales APRN [address] [place] [address] PCP - General 12/29/22 Inocencia Hastings APRN, BETO [address] [place] [address] Nurse Practitioner Neurosurgery 07/11/22 documented as of this encounter
--- OUTSIDE RECORDS SUMMARY | 2025-02-07 07:14 | XMS_ITS | Encounter Summary ---
Author Organization [facility] Address [address] [place] [address] Care Team Providers Care Drainage Inspector Name Role Phone Khadarluz elenaInocencia APRN, DNP Unavailable [phone] Ly Morales POLISHER APPRENTICE Primary Care Provider [phone]- [phone] Encounter Details Date Type Department Care Team (Late Contact Info) Description 12/29/2024 [facility] Nephrology, Bone & Mineral Metabolism [address] [facility], [address] [place] [address] Hillary Ruiz [facility] [address] [place] [address] Social History Tobacco Use Types Packs/Day Years [...] Description 03/13/2025 9:00 AM EDT Office Visit [facility] [address] [place] [address] Helene Pal APRN, BETO [address] [place] [address] documented as of this encounter Visit Diagnoses Not on filedocumented in this encounter Additional Health Concerns Assessment Noted Time A fall risk assessment has been complete d for the patient 11/24/2024 9:13 AM EDT A Body Mass Index follow-up plan has been documented for the patient 11/29/2024 11:25 AM EDT documented as of this encounter Care Teams Drainage Inspector Relationship Specialty Start Date End Date Ly Morales APRN [address] [place] [address] PCP - General 12/29/22 Inocencia Hastings APRN, DNP [address] [place] [address] Nurse Practitioner Neurosurgery 07/11/22 documented as of this encounter
--- OUTSIDE RECORDS SUMMARY | 2025-02-07 07:14 | XMS_ITS | Encounter Summary ---
Author Organization Healthcare Address [address] [place] [address] Care Team Providers Care Manager Surgery Name Role Phone YozoeInocencia APRN, BETO Unavailable [phone]- [phone] Ly Morales APRN Primary Care Provider [phone]- [phone] Encounter Details Date Type Department Care Team [...] Description 03/13/2025 9:00 AM EDT [facility] [address] [place] [address] Helene Pal APRN, DNP [address] [place] [address] documented as of this encounter Visit Diagnoses Not on filedocumented in this encounter Additional Health Concerns Assessment Noted Time A fall risk assessment has been complete d for the patient 01/04/2025 1:51 PM EDT A Body Mass Index follow-up plan has been documented for the patient 11/29/2024 11:25 AM EDT documented as of this encounter Care Teams Manager Surgery Relationship Specialty Start Date End Date Ly Morales APRN [address] [place] [address] PCP - General 12/29/22 Inocencia Hastings APRN, DNP [address] [facility] [address] [place] [address] Nurse Practitioner Neurosurgery 07/11/22 documented as of this encounter
--- OUTSIDE RECORDS SUMMARY | 2025-02-07 07:14 | XMS_ITS | Data Portability ---
Author Organization [facility] Address [address] [place] [address] Care Team Providers Care Laundromat Manager Name Role Phone YVES BLACKMAN Referring Provider ALEJANDRA CASTELLANO Primary Care Provider Assessment Encounter [...] recorded. Referral ENT surgery referral 2023 024 [facility], [address] [place] [address] [address], [place], [address], 4 09:34:58 Procedures None recorded. Surgeries None recorded. Imaging None recorded. Medication Orders cefdinir 300 mg capsule 2023 024 [facility], [address] [place] [address] [address] [place] [place], [phone], 4 14:04:27 Debrox 6.5 % ear drops 2023 024 [facility], [address] [place] [address] [address], [place], [phone], 13:50:26 Patient TargetsNo targets recorded. Patient InstructionsNo instructions recorded. Reason for Referral ENT Surgery Referral for Imp acted cerumen of bilateral ears Referring Physician: Alejandra Castellano, Family Medicine, Encounter Date: 03/28/2024 Results Created Date Observation Date Name Description Value Unit Range Abnormal Flag Note LastModifiedBy Organization Detail LastModifiedTime 06/21/2006/21/2024 josé miguel metry No observ ation record ed. [facility] (Radiology) [address] [place] [address] [place], [address], 06/21/2024 16:48:12 06/22/20 24 06/22/2024 XR, foot, 3 or more view No observ ation record ed. [address], [place], [address], 06/23/2024 09:24:21 06/22/20 24 06/22/2024 XR, foot, 3 or more view No observ ation record ed. [address], [place], [address], 06/23/2024 09:24:06 06/22/20 24 06/22/2024 CT, angio gram, abdom en, w/ contr ast No observ ation record ed. [address], [place], [address], 06/23/2024 09:22:53 06/23/2006/22/2024 US, doppl er echoc ardio gram, w/ color flow No observ ation record ed. [address], [place], [address], 06/23/2024 09:20:28 06/23/20 24 06/23/2024 XR, chest No observ ation record ed. [facility] [address], [place], [address], 06/23/2024 11:42:07 06/27/20 24 06/22/2024 US, doppl er, venou s No observ ation record ed. [facility] [address], [place], [address], 06/30/2024 09:49:20 06/27/20 24 06/22/2024 arter ial study , lower extre mity, compl ete No observ ation record ed. [facility] [address], [place], [address], 06/30/2024 09:45:06 12/10/19 25 2024 XR, ankle , 3 or more view No observ ation record ed. [facility] [address], [place], [address], 2024 10:54:00 12/10/19 25 2024 XR, foot, 3 or more view No observ ation record ed. [facility] [address], [place], [address], 2024 14:33:54 Result Notes None recorded. Problems Name Problem SNOMED Code Status Onset Date Resolution Date Notes Provider Name and Address Organization Details Recorded Time Cellulit is 780433656 Completed 201603/09/2018 Candelaria falk, [place] - [facility] 8 14:49:31 Infectio n of toenail 18850219866 767018 Completed 201603/09/2018 Candelaria falk, [place] - [facility] 8 14:49:39 Chest discomfo rt 608063945 Completed 201703/09/2018 TALHA Wiggins - [facility] 8 14:49:44 Anxiety 88879315 Active 2017 Alejandra PATRICIA mccall [address], [place], [address], [place] - [facility] 2 09:50:10 Lumbosac ral radiculo john 6423586 Active 2017 Clembrittany JAYLIN mccallN [address], [place], [address], [place] [facility] 2 09:50:23 Infectio n of toe 753523688 Completed 201812/13/2020 Mir Javier MD [address], [place], [address], [place] [facility] 1 15:25:15 Hyperten sive disorder 89173324 Active 2015 Clembrittany Castellano APRN [address], [place], [address], [place] [facility] 2 09:50:17 Chronic back pain 832531316 Active 2015 Clembrittany Castellano APRN [address], [place], [address], [place] [facility] 2 09:50:08 Acid reflux 840509076 Active 2015 Clembrittany Castellano APRN [address], [place], [address], [place] [facility] 2 09:50:13 Injury of muscle of right foot 59264912121 359929 Completed 201912/13/2020 Mir Javier MD [address], [place], [address], [place] [facility] 1 15:25:09 Ingrowin g nail 494776933 Completed 201510/07/2016 Mir Javier MD [address], [place], [address], [place] [facility] 7 19:56:38 Cellulit is 902009800 Completed 201510/07/[address] [facility], [place] - [facility] 8 14:49:31 Superfic ial puncture wound 260031064 Completed 201912/13/2020 Mir Javier MD [address], [place], [address], [place] [facility] 1 15:25:26 Suspecte d COVID-19 538862314 Completed 11/26/2020 Removal Reason: Problem added by user [email or web address] from the COVID-19 watch flag Angelika Serenity null, [place] - [facility] 1 10:15:17 Acute pharyngi tis 032775750 Completed 202010/17/2021 Mir Javier MD [address], [place], [address], [place] [facility] 2 14:23:13 Suspecte d COVID-19 147730380 Completed 03/25/2021 Removal Reason: Problem marked historic al by user [email or web address] from the COVID-19 watch flag Angelika Serenity null, [place] - [facility] 1 10:15:17 Family history of diabetes mellitus 740223864 Active 2021 Mir Javier MD [address], [place], [address], [place] [facility] 2 14:23:53 Dizzines s 659207668 Active 2021 Mir Javier MD [address], [place], [address], [place] [facility] 2 13:12:43 Alpha-1- antitryp sin deficien cy 51323094 Active 2022 Alejandra Castellano APRN [address], [place], [address], [place] [facility] 4 09:16:00 Depressi ve disorder 45831520 Active 2022 Alejandra Castellano APRN [address], [place], [address], [place] [facility] 4 09:15:45 Gastroes ophageal reflux disease without esophagi tis 171864787 Active 2023 Alejandra Castellano APRN [address], [place], [address], [place] - [facility] 4 09:15:43 Impacted cerumen 60225090 Completed 201610/29/2016 TALHA Wiggins - [facility] 7 08:30:44 Urinary symptoms 738226711 Completed 201603/09/2018 TALHA Wiggins - [facility] 8 14:49:36 Problem Notes None recorded. Procedures Surgical History Date Name Laterality Status Provider Name and Address Organization Details Recorded Time 07/14/20 24 Medication Reconcilliation completed Maritza Loza [place] - [facility] 07/14/2024 15:39:36 03/28/20 24 Cerumen Removal completed Alejandra Castellano APRN [address], [place], [address], [facility] - [facility] 03/28/2024 16:37:10 02/28/20 23 Dexcom Placement completed Alejandra Castellano APRN [address], [place], [address], [facility] - [facility] 02/27/2023 17:04:30 02/28/20 23 [facility] 02/27/2023 16:18:27 07/12/20 20 Systolic B/P less than 130 mm Hg completed [facility] - [facility] 07/12/2020 13:30:58 07/12/20 20 Diastolic B/P 80-89 mm Hg completed [facility] 07/12/2020 13:31:00 03/21/20 20 Systolic B/P less than 130 mm Hg completed [facility] - [facility] 03/21/2020 08:25:39 03/21/20 20 Diastolic B/P 80-89 mm Hg completed [facility] - [facility] 03/21/2020 08:25:41 12/16/19 20 Systolic B/P less than 130 mm Hg completed [facility] - [facility] 12/16/2019 14:03:23 12/16/19 20 Diastolic B/P 80-89 mm Hg completed [facility] 12/16/2019 14:03:26 12/16/19 20 Medication Reconcilliation completed [facility] 12/16/2019 14:02:06 09/29/19 20 Diastolic B/P greater than or equal to 90 mm Hg completed [facility] 09/29/2019 09:09:16 09/29/19 20 Systolic B/P 130-139 mm Hg completed [facility] 09/29/2019 09:08:51 08/25/19 20 Diastolic B/P 80-89 mm Hg completed [facility] 08/25/2019 08:49:38 08/25/19 20 Systolic B/P greater than or equal to 140 mm Hg completed [facility] 08/25/2019 08:49:36 08/11/19 18 Back Surgery completed Savanna Powell [facility] 09/30/2018 14:31:35 07/01/20 17 Toenail Removal/Excision- permanent, partial or complete [facility] 07/01/2017 09:40:06 06/18/20 16 Toenail Removal/Excision- permanent, partial or complete completed Mir Javier MD [facility] [address], [address] - [facility] 06/21/2016 16:04:54 Appendectomy completed Candelaria Willis [facility] 06/10/2016 16:31:57 Tonsillectomy completed [facility] 06/10/2016 16:32:07 Knee arthroscopy/surger y completed Savanna Powell [facility] 09/30/2018 14:30:19 Imaging Results None recorded. Procedure Notes None recorded. Medical Equipment None Reported. Allergies Allergen ID Allergen Name Allergen Category Reaction Reaction Severity Criticality Documentation Date Start Date Code Code System Note Provider Name and Address Organization Details Recorded Time 565733 tizanidin e medicatio n Not available Not available Not available 08/22/2021 22467 RxNorm confu maria r falk [facility] 2 10:34:24 45868 Product containin g penicilli n (product) medicatio n Not available Not available Not available 05/16/20162014 18471 8001 SNOMED React ion: hives short ness [...] Pulse oximetry Respiratory rate Body temperature Systolic And Diastolic Provider Name and Address Organization Details Last Updated DateTime 5 185.42 cm 35.9 kg/m2 396701. 12 g 106 /min 96 % 96 % 18 /min 97.9 [degF] 114/76 mm[Hg] Jenni Drake [place] - [facility] 5 10:19:00 Date Recorded Body height Respiratory rate Body mass index (BMI) Body weight Oxygen saturation Oxygen saturation in Arterial blood by Pulse oximetry Heart rate Body temperature Systolic And Diastolic Provider Name and Address Organization Details Last Updated DateTime 4 185.42 cm 18 /min 34.3 kg/m2 634042. 02 g 96 % 96 % 86 /min 98 [degF] 120/78 mm[Hg] Jenni Drake [place] - [facility] 4 15:03:31 Date Recorded Body height Provider Name an d Address Organization Details Last Updated DateTime 04/15/2024 185.42 cm Maritza Loza [place] - [facility] 0 04/15/2024 14:29:46 Date Recorded Body mass index (BMI) Body weight Body temperature Heart rate Oxygen saturation Oxygen saturation in Arterial blood by Pulse oximetry Respiratory rate Systolic And Diastolic Provider Name and Address Organization Details Last Updated DateTime 4 34.7 kg/m2 526496. 19 g 97.5 [degF] 74 /min 98 % 98 % 18 /min 136/86 mm[Hg] Maritza Loza [place] - [facility] 4 13:48:14 Date Recorded Body height Provider Name an d Address Organization Details Last Updated DateTime 06/21/2024 185.42 cm Jenni Drake [place] - [facility] 06/21 13:36:19 Date Recorded Body height Body mass index (BMI) Body weight Body temperature Heart rate Oxygen saturation Oxygen saturation in Arterial blood by Pulse oximetry Respiratory rate Systolic And Diastolic Provider Name and Address Organization Details Last Updated DateTime 4 185.42 cm 35.2 kg/m2 857282. 16 g 98.3 [degF] 87 /min 98 % 98 % 18 /min 116/80 mm[Hg] Maritza Dago [place] - [facility] 4 15:40:35 Social History Question Answer Notes LastModified by Organizat ion Details LastModified Time Tobacco Smoking Status Never Smoker Candelaria [place] - [facility] 06/10/2016 16:31:45 Able To Swim? Yes Information not available 05/22/2022 Do You Have An Advance Directive? No [email or web address] Information not available 02/17/2017 Do You Wear A Helmet When Biking? No Information not available 05/22/2022 Are You Blind Or Do You Have Difficulty Seeing? No Information not available 05/22/2022 Is Blood Transfusion Acceptable In An Emergency? Yes Information not available 05/22/2022 What Is Your Level Of Caffeine Consumption? Moderate Information not available 02/17/2017 How Much Tobacco [...] Do You Have Serious Difficulty Hearing? No [email or web address] Information not available 02/17/2017 What Type Of Diet Are You Following? REGULAR Information not available 05/22/2022 Which Illicit Or Recreational Drugs Have You Used? No [email or web address] Information not available 02/17/2017 Have You Processed [...] Or The Highest Degree You Have Received? [id number] Information not available 05/22/2022 Swimming/diving Yes Informati [...] Do You Have A Medical Power Of Nut Picker? No Information not available 05/22/2022 What Was The Date Of Your Most Recent Tobacco Screening? 10/14/2024 Information not available 10/14/2024 How Many Children Do You Have? 2 Information not available 05/22/2022 Do You Use Protection During Sex? No [email or web address] Information not available 02/17/2017 Do You Use Protection Against STDs? No Information not available 05/22/2022 What Is Your Relationship Status? [email or web address] Information not available 02/17/2017 Seat Belts Used [...] 05/22/2022 Do You Use Sunscreen Routinely? No [email or web address] Information not available 02/17/2017 Has Tobacco Cessation Counseling Been Provided? No Information not available 11/17/2022 On What Date Was Tobacco Cessation Counseling Provided? 07/14/2022 Non Smoker Information not available 07/14/2022 Do You Have Difficulty Walking Or Climbing Stairs? No Information not available 05/22/2022 Sex: Male Functional Status Question Answer Note LastModified by Organizat ion Details LastModified Time Do you or have you ever used smokeless tobacco? Never used smokeless tobacco [email or web address] Information not available 09/29/2019 Are you currently employed? Yes Information not available 02/17/2017 Do you have transportation difficulties? No Information not available 05/22/2022 Are you able to care for yourself? Yes [email or web address] Information n ot available 02/17/2017 Do you have difficulty dressing or bathing? No Information not available 05/22/2022 Do you or have you ever used e-cigarettes or vape? Never used electronic cigarettes [email or web address] Information not available 09/29/2019 What is your exercise level? Occasional [email or web address] Information not available 02/17/2017 Do you use any illicit or recreational drugs? No Information not available 05/22/2022 Do you or have you ever used any other forms of tobacco or nicotine? No Information not available 05/22/2022 What is your level of alcohol consumption? None [email or web address] Information not available 02/17/2017 Are you able to walk? [email or web address] Information not available 05/22/2022 Do you have difficulty doing errands alone? No Information not available 05/22/2022 What is your occupation? [employer] Information not available 05/22/2022 Mental Status Question Answer Note LastModified by Organizat ion Details LastModified Time Do you feel stressed (tense, restless, nervous, or anxious, or unable to sleep at night)? [id number] Information not available 05/22/2022 Do you have difficulty concentrating, remembering or making decisions? No Information no t available 05/22/2022 Family History Relationship Description Onset Age of this Age Resolved Age Notes LastModified by Organization Details LastModified Time Paternal Grandfather Malignant tumor of pancreas Not available 04/27 11:12:55 Mother Degeneration of lumbar intervertebr al disc [email or web address] Not available 04/27 11:13:15 Maternal Grandfather Carcinoma of prostate [email or web address] Not available 04/27 11:13:43 Medical History Condition Response Degenerative Disc Disease Y Acid Reflux (GERD) Y Hypertension Y Immunizations Vaccine Type Date Status Note Provider Nam e and Address Organization Details Recorded Time Hep A, ped/adol, 2 dose 3 completed Alejandra Castellano APRN [address], [place], [address], [place] - [facility] 10/16/2022 10:58:00 Hep B, adult 3 completed Alejandra Castellano APRN [address], [place], [address], [place] - [facility] 10/16/2022 10:58:00 Pneumococcal conjugate PCV20, polysaccharide VRM382 conjugate, adjuvant, PF 3 completed Alejandra Castellano APRN [address], [place], [address], [place] [facility] 10/16/2022 10:58:00 Influenza, split virus, quadrivalent, preservative 3 completed Maritza Loza null, [place] - [facility] 05/19/2023 15:11:30 Influenza, split virus, trivalent, preservative 4 completed Maritza falk[place] - [facility] 04/15/2024 14:32:22 Hep A, adult 8 completed Not Available [facility] 08/27/2019 03:55:36 Hep B, adolescent or pediatric 1 completed Jenni Drake [place] - [facility] 06/10/2022 17:40:30 Tdap 2 completed Jenn[facility] Stears null[place] [facility] 06/10/2022 17:40:30 Influenza, split virus, quadrivalent, preservative 5 completed Jenni Stears [place] [facility] 06/10/2022 17:40:30 Influenza, split virus, quadrivalent, preservative 7 completed Jenni Ste[place] [facility] 06/10/2022 17:40:30 COVID-19, mRNA, LNP-S, PF, 100 mcg/0.5mL dose or 50 mcg/0.25mL dose 1 completed Jenni Stears null, [place] - [facility] 06/10/2022 17:40:30 COVID-19, mRNA, LNP-S, PF, 100 mcg/0.5mL dose or 50 mcg/0.25mL dose 1 completed Jenni Stears null, [facility] 06/10/2022 17:40:30 Influenza, split virus, quadrivalent, PF 6 completed Jenni Stears null, [facility] 06/10/2022 17:40:30 Influenza, split virus, quadrivalent, preservative 9 completed Jenni Stears null, [facility] 06/10/2022 17:40:31 Influenza, split virus, quadrivalent, preservative 2 completed Jenni Stears null, [facility] 06/10/2022 17:40:31 Influenza, split virus, quadrivalent, preservative 0 completed Jenni Stears null, [place] - [facility] 06/10/2022 17:40:31 pneumococcal polysaccharide PPV23 0 completed Jenni Stears null[place] - [facility] 06/10/2022 17:40:31 Influenza, split virus, quadrivalent, preservative 8 completed Jenni Stears null, [facility] 06/10/2022 17:40:31 Td (adult), 2 Lf tetanus toxoid, preservative free, adsorbed 5 completed Jenni Stears null, [facility] 06/10/2022 17:40:31 Influenza, split virus, trivalent, PF 0 completed Maritza falk, [place] - [facility] 11/17/2022 14:44:56 COVID-19, mRNA, LNP-S, bivalent, PF, 50 mcg/0.5 mL or 25mcg/0.25 mL dose 3 completed Jenni falk, [place] - [facility] 03/27/2023 09:20:19 Past Encounters Encounter ID Performer Location Encounter Start Date Encounter Closed Date Diagnosis/Indication Diagnosis SNOMED-CT Code Diagnosis ICD10 Code Diagnosis Note [id number] Mir Javier MD [address] [place] [address] 06/10/2016 15:57:26 06/10/2016 16:47:05 Influenza vaccine needed 2864486424 106 Z23 Cellulitis 632337419 L03 .90 Ingrowing nail 603283223 L60.0 Chronic back pain 534833 002 M54.10 Hypertensive disorder 38 705941 I10 [id number] Mir Javier MD [address] [place] [address] 06/18/2016 14:21:53 06/23/2016 14:29:10 Ingrowing nail 351246028 L60.0 [id number] Mir Javier MD [address] [place] [address] 10/07/2016 09:09:48 10/07/2016 10:57:25 Hypertensive disorder 55804090 I10 Chronic back pain 048417 002 M54.10 Renewal of prescription 973797317 Z76.0 Impacted cerumen 9942549 6 H61.23 Acid reflux 941400866 K2 1.9 [id number] Mir Javier MD [address] [place] [address] 10/29/2016 08:20:51 10/29/2016 16:56:10 Hypertensive disorder 61636031 I10 Chronic back pain 250337 002 M54.10 Hyperlipid emia screening 416664773 Z13.695 [id number] Mir Javier MD [address] [place] [address] 12/04/2016 08:09:34 12/04/2016 09:15:43 Hypertensive disorder 62925360 I10 Chronic back pain 662337 002 M54.10 Renewal of prescription 808781365 Z76.0 Body mass index 25-29 - overweight 942977997 Z68.29 Acid reflux 031074559 K2 1.9 [id number] Mir Javier MD [address] [place] [address] 01/01/2017 08:14:47 01/02/2017 08:05:00 Acute urinary tract infection 741798066 N39.0 Exposure t o sexually transmissible disorder 632863344 Z20.2 Acid reflux 413274647 K2 1.9 Chronic back pain 707903 002 M54.10 Hypertensive disorder 38 632888 I10 Urinary symptoms 5677646 08 R39.9 [id number] Mir Javier MD [address] [place] [address] 02/17/2017 08:17:07 02/17/2017 09:21:51 Chronic back pain 655533511 M54.10 Urinary symptoms 0491785 08 R39.9 Acid reflux 677790472 K2 1.9 Hypertensive disorder 38 210438 I10 [id number] Mir Javier MD [address] [place] [address] 04/02/2017 08:39:58 04/02/2017 09:36:20 Chronic back pain 945976738 M54.10 Hypertensive disorder 38 963019 I10 Body mass index 25-29 - overweight 253484792 Z68.29 Acid reflux 502361153 K2 1.9 [id number] Mir Javier MD [address] [place] [address] 06/03/2017 08:14:45 06/03/2017 09:41:29 Chronic back pain 804890115 M54.10 Ingrowing toenail 821611 009 L60.0 Administra tion of influenza vaccine 43920934 Z23 Hypertensive disorder 38 975171 I10 Cellulitis 403875020 L03 .90 [id number] Mir Javier MD [address] [place] [address] 07/01/2017 08:16:48 07/01/2017 09:50:01 Ingrowing toenail 516495551 L60.0 Cellulitis 182117229 L03 .90 Chronic back pain 032006 002 M54.10 Hypertensive disorder 38 331724 I10 Infection of toenail 051 0246863 2661122 B99.9 [id number] Mir Javier MD [address] [place] [address] 09/30/2017 09:44:22 09/30/2017 10:28:09 Hypertensive disorder 50373379 I10 [id number] Mir Javier MD [address] [place] [address] 10/29/2017 15:00:38 10/29/2017 16:31:50 Hypertensive disorder 72120283 I10 Chronic back pain 632961 002 M54.10 Chest discomfort 4136822 09 R07.89 Anxiety 91010770 F41.9 [id number] Mir Javier MD [address] [place] [address] 11/12/2017 14:39:54 11/12/2017 16:51:02 Anxiety 58018881 F41.9 Tachycardia 7249119 R00. 0 Chest discomfort 5954778 09 R07.89 Chronic back pain 664923 002 M54.10 Hypertensive disorder 38 869730 I10 [id number] Mir Javier MD [address] [place] [address] 12/30/2017 13:32:41 12/30/2017 15:28:58 Hypertensive disorder 34274886 I10 Body mass index 25-29 - overweight 358543617 Z68.29 Overweight 367628238 E66 .3 Chronic back pain 546939 002 M54.10 Anxiety 38963264 F41.9 [id number] Mir Javier MD [address] [place] [address] 03/09/2018 13:52:19 03/09/2018 14:54:41 Hypertensive disorder 79359157 I10 Chronic back pain 802801 002 M54.10 Acid reflux 511639182 K2 1.9 Anxiety 83514851 F41.9 [id number] Mir Javier MD [address] [place] [address] 04/21/2018 15:59:39 04/21/2018 18:12:02 Chronic back pain 294702317 M54.10 Body mass index 25-29 - overweight 540198821 Z68.29 Overweight 387848148 E66 .3 Anxiety 91041262 F41.9 Hypertensive disorder 38 748803 I10 [id number] Mir Javier MD [address] [place] [address] 05/13/2018 14:38:24 05/13/2018 17:45:49 Chronic back pain 485087453 M54.10 Administra tion of influenza vaccine 48157536 Z23 Hypertensive disorder 38 309534 I10 Acid reflux 228092938 K2 1.9 [id number] Mir Javier MD [address] [place] [address] 06/01/2018 13:28:54 06/01/2018 15:22:18 Chronic back pain 673876106 M54.10 Hypertensive disorder 38 850796 I10 Acid reflux 406206512 K2 1.9 Anxiety 99542980 F41.9 Radicular pain 31356991 M54.10 Pain in ri ght lower limb 941742764 M79.189 [id number] Mir Javier MD [address] [address] [place] [address] 06/30/2018 09:21:42 06/30/2018 10:43:17 Chronic back pain 572140206 M54.10 Anxiety 53626176 F41.9 Acid reflux 397835998 K2 1.9 Hypertensive disorder 38 659864 I10 [id number] Mir Javier MD [address] [place] [address] 07/27/2018 12:23:04 07/27/2018 15:31:41 Chronic back pain 778955806 M54.10 Lumbosacra l radiculopathy 0846372 M54.16 Hypertensive disorder 38 890739 I10 Active or passive immunization 839911304 Z23 Anxiety 41998046 F41.9 Acid reflux 724992989 K2 1.9 [id number] Shi Cavazos [address] [place] [address] 08/11/2018 13:19:24 08/11/2018 14:16:04 Chronic back pain 836387692 M54.16 [id number] Krystal Blaise [address] [place] [address] 09/30/2018 14:07:49 09/30/2018 15:22:54 Chronic back pain 765111857 G89.29 Pain of hip region 45320 002 M25.635 [id number] Mir Javier MD [address] [place] [address] 10/13/2018 14:44:45 10/13/2018 16:07:06 Hypertensive disorder 39690708 I10 Chronic back pain 931493 002 M54.10 Anxiety 26320625 F41.9 Acid reflux 182907046 K2 1.9 Renewal of prescription 853474553 Z76.0 Flank pain 910665549 R10 .9 Pain of to e of left foot 2356198737 89300 M79.675 Cellulitis of toe 946310 04 L03.032 Urinary tr act infectious disease 62132714 N39.0 Lumbosacra l radiculopathy 4271781 M54.16 [id number] Mir Javier MD [facility] [address] [place] [address] [place] [address] 10/20/2018 14:48:32 10/20/2018 16:00:32 Pharyngitis 308763267 J02.9 Upper resp iratory infection 53700689 J06.9 Lumbosacra l radiculopathy 2208631 M54.16 Anxiety 44766179 F41.9 Acid reflux 674818661 K2 1.9 Chronic back pain 669972 002 M54.10 Hypertensive disorder 38 749890 I10 Cellulitis of toe 826543 04 L03.032 Lymphadenitis 05043239 I 88.9 [id number] Mir Javier MD [address] [place] [address] 11/02/2018 13:50:33 11/02/2018 15:09:01 Infection of toe 155152511 L08.9 Anxiety 18686615 F41.9 Acid reflux 720579975 K2 1.9 Chronic back pain 411134 002 M54.10 Hypertensive disorder 38 330233 I10 Urinary tr act infectious disease 72739202 N39.0 [id number] Mir Javier MD [address] [address] 11/24/2018 14:01:40 11/24/2018 14:37:03 Infection of toe 070308158 L08.9 Lumbosacra l radiculopathy 8539585 M54.16 Anxiety 63523420 F41.9 Acid reflux 340554034 K2 1.9 Chronic back pain 764067 002 M54.10 Hypertensive disorder 38 514912 I10 Urinary tr act infectious disease 02106128 N39.0 [id number] Mir Javier MD [address] [place] [address] 01/13/2019 14:54:28 01/13/2019 16:11:42 Hypertensive disorder 44597383 I10 Chronic back pain 626434 002 M54.10 Lumbosacra l radiculopathy 4148700 M54.16 Acid reflux 894883285 K2 1.9 Anxiety 91520999 F41.9 Screening for cardiovascular system disease 225471837 Z13.6 Tachycardia 4563384 R00. 0 Infection of toe 5449772 06 L08.9 [id number] Mir Javier MD [address] [place] [address] 04/27/2019 10:48:44 04/27/2019 13:32:01 Lumbosacral radiculopathy 4028534 M54.16 Chronic back pain 153819 002 M54.10 Hypertensive disorder 38 257722 I10 Anxiety 16102020 F41.9 Body mass index 30+ - obesity 441730963 Z68.31 [id number] Mir Javier MD [facility] [address] [place], [place] [address] [place] [address] [address] 06/14/2019 14:17:53 06/14/2019 15:27:06 Chronic back pain 887014620 M54.10 Lumbosacra l radiculopathy 2528264 M54.16 Administra tion of influenza vaccine 10788292 Z23 Anxiety 44271044 F41.9 Renewal of prescription 974666167 Z76.0 Hypertensive disorder 38 659937 I10 [id number] Mir Javier MD [facility] [address] [place], [place] [address] [place] [address] 08/25/2019 08:39:49 08/25/2019 10:05:14 Lumbosacral radiculopathy 6078615 M54.16 Anxiety 94264904 F41.9 Acid reflux 451155763 K2 1.9 Chronic back pain 893540 002 M54.10 Pain in right foot 70753 38396 51133 M79.270 [id number] Mir Javier MD [facility] [address] [place], [place] [address] [place] [address] [address] 09/29/2019 08:48:06 09/29/2019 11:33:12 Injury of muscle of right foot 7009574627 7324141 S96.901D Closed fra cture of fifth metatarsal bone 62416037 S92.351D Pain in right foot 56490 26786 15918 M79.671 Chronic back pain 218592 002 M54.10 Hypertensive disorder 38 706786 I10 Acid reflux 789371445 K2 1.9 Anxiety 13038579 F41.9 [id number] Mir Javier MD [facility] [address] [place], [place] [address] [place] [address] 12/16/2019 13:36:55 12/16/2019 14:29:53 Low back pain 626721600 M54.5 newly acquired Aftercare 169929713 Z51. 89 Acid reflux 062060416 K2 1.9 Anxiety 78168055 F41.9 Chronic back pain 261626 002 M54.10 Hypertensive disorder 38 768790 I10 Injury of muscle of right foot 4527760625 0337550 S96.901D [id number] Mir Javier MD [address] [place] [address] 03/21/2020 08:05:35 03/21/2020 09:02:56 Anxiety 11731458 F41.9 Hypertensive disorder 38 207864 I10 Acid reflux 143191981 K2 1.9 Chronic back pain 333641 002 M54.10 Puncture w ound of hand 899846531 S61.431A 2nd digit of right hand [id number] Mir Javier MD [address] [place] [address] 07/12/2020 13:13:47 07/12/2020 14:17:40 General examination of patient 828281211 Z00.00 Hyperlipid emia screening 513801746 Z13.220 Screening for malignant neoplasm of prostate 419627754 Z12.5 Endocrine/ metabolic screening 897447295 Z13.228 Exercises education, guidance, and counseling 041656672 Z71.82 Dietary ma nagement surveillance 987127901 Z71.3 Administra tion of influenza vaccine 08044887 Z23 Acid reflux 063261560 K2 1.9 Anxiety 40426180 F41.9 Chronic back pain 976317 002 M54.10 Hypertensive disorder 38 217088 I10 [id number] Krystal Welsh APRN [place] [address] [address] 11/26/2020 11:06:55 11/26/2020 12:13:56 Gastroesophageal reflux disease 276791042 K21.9 Epigastric pain 97324521 R10.13 [id number] Mir Javier MD [address] [place] [address] 12/13/2020 13:43:36 12/13/2020 14:53:29 Body mass index 30+ - obesity 071516436 Z68.31 Injury of muscle of right foot 0716100932 2787767 S96.901D Lumbosacra l radiculopathy 3884085 M54.16 Anxiety 85677960 F41.9 Acid reflux 532081407 K2 1.9 Hypertensive disorder 38 853488 I10 Chronic back pain 577540 002 M54.10 [id number] Mir Javier MD [address] [place] [address] 03/21/2021 15:58:15 03/21/2021 16:49:47 Anxiety 84192167 F41.9 Acid reflux 570093264 K2 1.9 Pain in throat 993587336 R07.0 Chronic back pain 459126 002 M54.10 Hypertensive disorder 38 290829 I10 Lumbosacra l radiculopathy 1130934 M54.16 [id number] Mir Javier MD [address] [place] 4 04/10/2021 11:19:11 04/10/2021 11:40:26 Administration of SARS-CoV-2 antigen vaccine 284272870 Z23 [id number] Mir Javier MD [address] [place] [place] [address] 05/09/2021 08:40:31 05/09/2021 10:28:23 Administration of SARS-CoV-2 antigen vaccine 794822175 Z23 [id number] Jose David Garza DO [address] [place] [address] 08/22/2021 09:43:30 08/22/2021 10:48:16 Viral screening 697298882 Z11.52 COVID-19 040082551 U07.1 Anxiety 66357604 F41.9 [id number] Mir Javier MD [address] [place] [address] 10/17/2021 09:52:49 10/17/2021 11:12:20 Anxiety 08937619 F41.9 Acid reflux 770977409 K2 1.9 Chronic back pain 504609 002 M54.10 Hypertensive disorder 38 088620 I10 Lumbosacra l radiculopathy 8643479 M54.16 Body mass index 30+ - obesity 315570357 Z68.31 Administra tion of diphtheria, pertussis, and tetanus vaccine 569114712 Z23 Administra tion of tetanus vaccine 697845354 Z23 Family his tory of diabetes mellitus 111493703 Z83.3 [id number] Mir Javier MD [facility] [address] [place] [address] 04/03/2022 08:19:25 04/03/2022 09:37:30 Family history of diabetes mellitus 770664610 Z83.3 Anxiety 23653818 F41.9 Lumbosacra l radiculopathy 8928936 M54.16 Acid reflux 769184249 K2 1.9 Chronic back pain 566158 002 M54.10 Hypertensive disorder 38 325319 I10 Dizziness 917059413 R42 [id number] Alejandra Castellano [address] [address] 05/16/2022 08:36:51 05/16/2022 09:47:10 Chronic back pain 617217165 M54.10 follow up with pain management as scheduledp laced off work for 2 weeks to do PT treatments Hypertensive disorder 38 603462 I10 renal artery duplexcard iology referralke ep bp log and bring to appointmen t next week Anxiety 01993935 F41.9 Liver enzy mes level above reference range 434781994 R74.8 Acid reflux 680373370 K2 1.9 Lumbosacra l radiculopathy 1338224 M54.16 [id number] Alejandra Castellano [address] [address] 05/22/2022 15:30:08 05/22/2022 16:17:32 Hypertensive disorder 91122237 I10 renal artery duplexcard iology follow up testing per cardiology eye examif any symptoms worsen return or be seen in edkeep bp log and bring to appointmen t next week Impaired f asting glycemia 553920965 R73.01 Influenza vaccine needed 0333692333 106 Z23 [id number] Alejandra Castellano [address] [address] 05/30/2022 14:38:17 05/30/2022 15:15:04 Chronic back pain 483251769 M54.10 follow up with pain management as scheduledp laced off work for 2 weeks to wait for appointmen t for neurosurge ry [id number] [place] [address] 06/10/2022 17:18:42 06/10/2022 18:15:08 COVID-19 642834790 U07.1 no sign of a bacterial infection. [...] hoursgo to ed brando if any concerns [id number] Alejandra Castellano [address] [address] 06/13/2022 10:31:15 06/13/2022 10:43:38 COVID-19 201339922 U07.1 no sign of a bacterial infection. [...] brando if any concerns Chronic back pain 767894 002 M54.10 follow up with pain management as scheduledp laced off work ftill 07/13/22 until appointmen t for neurosurge ry Hypertensive disorder 38 077676 I10 cardiology follow up testing per cardiology if any symptoms worsen return or be seen in edkeep bp [facility] [id number] Alejandra Castellano [employer] [address] [address] 07/10/2022 09:31:31 07/10/2022 10:27:00 Anxiety 89432338 F41.9 Pt compliant with plan of careKasper reviewedme dication compliance discussedL ast uds:Control substance agreement on filePatien t identified triggers for anxiety and impact of anxious thinking on functionin g. Discussed strategies to regulate symptoms and need for compliance with treatment. Long-term drug therapy 622594413 Z79.532 [id number] Alejandra Castellano [employer] [address] [address] 07/14/2022 09:59:20 07/14/2022 10:43:19 Chronic back pain 170310544 M54.10 follow up with pain management as scheduledr eleased to return back to work on light duty for 4 weeks [id number] Alejandra Castellano [employer] [address] [address] 08/07/2022 08:48:39 08/07/2022 09:46:50 Chronic back pain 507520697 M54.10 follow up with pain management as scheduledd iscuss work restrictio ns with back specialist Anxiety 69972325 F41.9 Pt compliant with plan of careKasper reviewedme dication compliance discussedL ast uds:Control substance agreement on filePatien t identified triggers for anxiety and impact of anxious thinking on functionin g. Discussed strategies to regulate symptoms and need for compliance with treatment. [id number] Alejandra Castellano [address] [address] 08/21/2022 08:50:54 08/21/2022 09:47:18 Chronic back pain 103091175 M54.10 follow up with pain management as scheduledd iscuss work restrictio ns with back specialist continue PT as scheduleda ny changes or new symptoms return or be seen in ed [id number] Eugonda Fryman, [address] [address] 09/04/2022 08:15:27 09/04/2022 08:48:46 Anxiety 64497126 F41.9 Pt compliant with plan of careKasper reviewedme dication compliance discussedL ast uds:Control substance agreement on filePatien t identified triggers for anxiety and impact of anxious thinking on functionin g. Discussed strategies to regulate symptoms and need for compliance with treatment. [id number] Alejandra Castellano [address] [address] 10/16/2022 09:51:12 10/16/2022 10:45:47 Anxiety 17269742 F41.9 Pt compliant with plan of careKasper reviewed and appropriat emedicatio n compliance discussedL ast uds:Control substance agreement on filePatien t identified triggers for anxiety and impact of anxious thinking on functionin g. Discussed strategies to regulate symptoms and need for compliance with treatment. Active or passive immunization 609350511 Z23 [id number] Tessadarien cal [address] [address] 11/17/2022 14:30:03 11/17/2022 15:22:36 Anxiety 40739700 F41.9 Pt compliant with plan of careKasper [...] time Long-term current use of drug therapy 141277237 Z79.997 [id number] Clembrittany Castellano [address] [address] 12/08/2022 08:45:49 12/08/2022 09:41:10 Hypertensive disorder 16234676 I10 cardiology follow up testing per cardiology if any symptoms worsen return or be seen in edkeep bp [facility] Anxiety 66539661 F41.9 Pt compliant with plan of careJimbo reviewed and appropriat emedicatio n compliance discussedL ast uds: 3Control substance agreement on filePatien t identified triggers for anxiety and impact of anxious thinking on functionin g. Discussed strategies to regulate symptoms and need for compliance with treatment. discussed the risk of meds, do not take meds at the same time Body mass index 25-29 - overweight 570993479 Z68.27 27.8 Overweight 693426739 E66 .3 Low back pain 883246499 M54.50 [id number] Alejandra Castellano [address] [address] 02/27/2023 16:03:45 02/27/2023 17:03:31 Depressive disorder 95493702 F32.A follow up with psych and therapy as scheduled Skin lesion 42963122 L98 .9 Impaired g lucose tolerance 3311543 R73.02 dexcom pro placedretu rn in 10 days for readings and treatment plan [id number] Alejandra Castellano [address] [address] 03/09/2023 07:59:32 03/09/2023 08:46:59 Body mass index 25-29 - overweight 876493470 Z68.25 25.9 Overweight 809205371 E66 .3 Dizzy spells 045370209 R 42 Increased thirst 7356358 03 R63.1 Impaired g lucose tolerance 9525371 R73.02 continue to monitor glucose and keep logglucose tolerancew hen spell starts check glucose every 10 mins [id number] Alejandra Castellano [address] [address] 03/27/2023 09:13:53 03/27/2023 10:08:08 Dizziness 112636628 R42 glucose tolerance results are good- recommend continue monitoring glucose and check glucose during episode.ca ll see cardiology brando and explain to them symptoms- for more work upreturn if any symptomsfo llow up with neurology [id number] Alejandra Castellano [address] [address] 05/07/2023 13:38:59 05/07/2023 14:10:51 Anxiety 92936468 F41.9 letter given to pt confirming diagnosis and the need for a registered nurse cardiac. informed the vet would know more about the other paperwork that is needed Depressive disorder 2711 9633 F32.A follow up with psych and therapy as scheduled [id number] Margie Spicer [facility] [address] [place] [address] 12/15/2023 14:17:00 12/15/2023 15:37:04 Repetitive self-excoriation 220455870 F42.4 educated on scratch/it ch cycle Seborrheic dermatitis 50 416619 L21.9 [id number] Alejandra Castellano [address] [address] 05/19/2023 14:34:58 05/19/2023 14:48:05 Influenza vaccine needed 0061708685 106 Z23 [id number] Alejandra Castellano [address] [address] 11/06/2023 08:38:22 11/06/2023 09:15:58 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 Depressive disorder 3208 3897 F32.A follow up with psych and therapy as scheduled Chronic back pain 667295 002 M54.10 follow up with pain management as scheduled continue with pain management any changes or new symptoms return or be seen in ed Body mass index 30+ - obesity 023786919 Z68.31 Obesity 145707465 E66.9 Gastroesop hageal reflux disease without esophagitis 425562977 K21.9 Anxiety 94187204 F41.9 Hypertensive disorder 38 584736 I10 pt wants to wait on labs has children with him todaycardi ology follow up testing per cardiology if any symptoms worsen return or be seen in [place] [id number] Alejandra Castellano [address] [address] 02/08/2024 08:02:05 02/08/2024 09:11:45 Increased frequency of urination 508853035 R35.0 will treat with antibiotic s until culture resultsif symptoms worsen or no improvemen t go to ed for eval Chronic back pain 711376 002 M54.10 follow up with pain management as scheduled continue with pain management any changes or new symptoms return or be seen in ed Depressive disorder 3548 9007 F32.A follow up with psych and therapy as scheduled Family his tory of diabetes mellitus 371149675 Z83.3 Hypertensive disorder 38 408388 I10 pt wants to wait on labs has children with him todaycardi ology follow up testing per cardiology if any symptoms worsen return or be seen in ed [id number] Alejandra Castellano APRN [address] [address] 03/28/2024 14:51:34 03/28/2024 16:57:03 Impacted cerumen of bilateral ears 3564944162 673913 H61.23 Acute righ t otitis media 439300136 H66.91 [id number] Alejandra Castellano APRN [address] [address] 04/15/2024 14:03:15 04/15/2024 14:22:05 Influenza vaccine needed 8583655122 106 Z23 [id number] Alejandra Castellano [employer] [address] [address] 06/21/2024 13:34:16 06/21/2024 14:28:22 Peripheral vascular disease 044145054 I73.[address] rodriguez- sent pt to [facility] for direct admission for poss interventi on- stents report to laly at [facility] [id number] Alejandra Castellano APRN [address] [address] 07/14/2024 15:01:09 07/22/2024 13:53:04 Peripheral vascular disease 765990519 I73.9 keep follow up appointmen ts, any issues return or be seen in ed [id number] Alejandra Castellano APRN [address] [place] [address] 10/14/2024 09:52:18 10/14/2024 10:54:26 Lumbosacral radiculopathy 9430082 M54.16 Chronic back pain 280614 002 M54.10 follow up with pain management [...] 2022 (MEDICAID REPLACEMENT - HMO) REHAN Tesfaye [id number] Bill Tesfaye 05/29/2022 1 [employer] REHAN Tesfaye [id number] Bill Tesfaye 05/29/2022 [place] [facility] [place] Bill Tesfaye [id number] Bill Tesfaye 10/25/2024 1 [facility] (MEDICAID HMO) Bill Tesfaye [id number] Bill Tesfaye 10/11/2024 [place] [facility] [place] MCD_AFPL Bill Tesfaye [id number] Bill Tesfaye 05/29/2022 1 [facility] (MEDICAID REPLACEMENT - HMO) MCD_AFPL Bill Tesfaye [id number] Bill Tesfaye 05/29/2022 [place] [facility] [place] Bill Tesfaye [id number] Bill Tesfaye 05/29/2022 1 [facility] [facility] (MEDICAID HMO) Bill Tesfaye [id number] Bill Tesfaye 10/07/2016 1 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 Bill Tesfaye 05/29/2022 [place] [facility] [place] Bill Tesfaye [id number] Bill Tesfaye 05/29/2022 [place] [facility] [place] BILLING (MEDICAID) Bill Brien [id number] Bill Mir Tesfaye 05/29/2022 [place] [facility] [place] [facility]ILLING (MEDICAID) Bill Brien [id number] Bill Mir Tesfaye Notes Date Note Type Note Provider Name and Address Organization Details Recorded Time 03/28/2024 text/html 38 year old male who presents to the office today with concerns ofleft ear pain, popping and ringing, started yesterday, states starting to feel the same way in the right ear also Alejandra Castellano, [employer] WORK[employer] [address], [place], [address], [place] - [facility] 03/28/2024 16:37:59 04/15/2024 text/html 38 yr old male presents for a flu vaccine. Maritza falk, [place] - [facility] 04/15/2024 14:33:04 06/21/2024 text/html 38 yr old male presents for right foot and calf pain x 1 week. He has lost his toenails on the right foot from several toes. Skin is peeling from around toes. Alejandra Castellano APRN [address], [place], [address], [place] - [facility] 06/21/2024 14:34:15 07/12/2024 text/html Emergency Depart ment Follow-Up RecordReported bypatient.Discharge InformationName of hospital/urgent care patient was seen: ([facility]); Patient presented to hospital for treatment [...] podiatry, Alejandra Castellano APRN [address], [place], [address], [place] - [facility] 07/21/2024 14:26:30 10/14/2024 text/html 38 year old male who presents to the office today with concerns ofchronic back pain, needing disability paperwork filled out. pt states he is disabled and draws ssi. Alejandra Castellano, P[employer] WORKER [address], [place], [address], [facility] - [facility] 10/14/2024 10:51:45
--- NOTE | 2025-02-07 07:30 | US_ITS ---
FINAL REPORT CLINICAL HISTORY: Fatty liver/alpha-1 antitrypsin deficiency COMPARISON: None FINDINGS: Sonographic images of the right upper quadrant were obtained. The pancreas is partially obscured. There is moderate fatty infiltration of the liver. The gallbladder is distended with multiple gallstones. There is no evidence of biliary ductal dilatation.The common duct measures 3 mm. Limited images of the right kidney are unremarkable. IMPRESSION: Cholelithiasis. Moderate fatty liver. Reviewed, Interpreted and Dictated by Harish Caputo MD Transcribed by Keila Anaya Authenticated and [facility]
== END 2025-02-07 23:59 | disposition home or self-care (01) ==
LOC: RAD 07:12
PROVIDERS: PCP Nurse Practitioner Family; Visit Provider Nurse Practitioner Family
DX: K80.20 Calculus of gallbladder without cholecystitis without obstruction (principal); K76.0 Fatty (change of) liver, not elsewhere classified; E88.01 Alpha-1-antitrypsin deficiency; R79.89 Other specified abnormal findings of blood chemistry
CPT/HCPCS: 76705

== ENCOUNTER 2025-02-22 08:00 | Outpatient (RCR) | payer MEDICARE, SELFPAY ==
--- NOTE | 2025-02-15 11:59 | HMH.RHREAS ---
Rehab Reassessment Rehab OP Re-assessment Start: 02/15/25 10:02 Freq: Status: Active Protocol: Document 02/15/25 10:44 TERESA (Rec: 02/15/25 11:44 TERESA [id number]) E-signed By Helene Merino PT Lower Extremity Functional Index Activities Today, do you or would you have any difficulty at all with: a.Any of your usual Moderate difficulty work, housework or school activities b. Your usual Moderate difficulty hobbies, recreational or sporting activities c. Getting into or Quite a bit of difficulty out of the bath d. Walking between Moderate difficulty rooms e. Putting on your Quite a bit of difficulty shoes or socks f. Squatting A little bit of difficulty g. Lifting an object Moderate difficulty , like a bag of groceries from the floor h. Performing light Quite a bit of difficulty activities around your home i. Performing heavy A little bit of difficulty activities around your home j. Getting into or Quite a bit of difficulty out of a car k. Walking 2 blocks A little bit of difficulty l. Walking a mile A little bit of difficulty m. Going up or down Moderate difficulty 10 stairs (about 1 flight of stairs) n. Standing for 1 Moderate difficulty hour o. Sitting for 1 Moderate difficulty hour p. Running on even A little bit of difficulty ground q. Running on uneven A little bit of difficulty ground r. Making sharp A little bit of difficulty turns while running fast s. Hopping Moderate difficulty t. Rolling over in Quite a bit of difficulty bed LEFI Score Lower Extremity 42 Functional Index Score Rehab Re-assessment Subjective Subjective Pt reports he feels 50-60% improved since starting PT. Pt reports he continues to have pain of the R heel and medial arch rated 6/10 at worst on VAS. 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 Pt reports continued aggravating factors of prolonged standing (10' or more), prolonged walking especially on uneven terrain, and stair climbing. Pt reports he continues to require a quad cane for gait mostly due to chronic low back pain. Pt states he does feel that his R foot drags with prolonged walking at times. Pt denies falls or LOB due to this. Objective Objective Notes LEFS: 42 (33 on previous RA) ROM: 0 degrees Active DF, 6 degrees passive DF MMT: 2+ DF 2+ PF 2+ Eversion 2+ Inversion Gait Assessment: Gait Assessment: Early heel off R foot during terminal stance. Decreased dorsiflexion during loading response and mid-stance of R foot. TTP: 2/4 to calcaneal tubercle and proximal plantar fascia and medial arch Assessment Progress Assessment Slower Than Expected Assessment Notes Pt has attended 10 PT treatment visits since his initial evaluation performed on 12/15/24 consisting of exercises to increase R ankle strength and mobility and modalities for pain management. Pt demonstrated improved LEFS score compared to the previous reassessment; however, minimal changes in objective findings such as ankle ROM, strength and gait. Overall, the pt would continue to benefit from skilled PT to further improve subjective report of pain, ankle ROM, strength, balance/proprioception, gait and functional activity tolerance to improve overall QOL and decrease fall risk. Patient goals met ST/8 Goals Not Met p!, ROM, strength, gait, standing tolerance, LTG Revised Goals n/a Plan Plan Continue POC. Consider discussion of R AFO if ROM does not improve to decrease fall risk. Frequency of Therapy 2x/week Duration of therapy 2-4 more weeks Time and Billing Re-Eval Time 11 Re-Eval Billing 0 Units Charge for PT No reassessment? Charge for OT No reassessment? PHYSICIAN CERTIFICATION: I certify the specified therapy services for Bill Tesfaye are required, authorized, and reviewed every 30 days.
== END 2025-02-22 23:59 | disposition home or self-care (01) ==
LOC: PT 08:00
PROVIDERS: Visit Provider Nurse Practitioner
DX: M72.2 Plantar fascial fibromatosis (principal)
CPT/HCPCS: 97110; 97112; 97140; 97530

== ENCOUNTER 2025-03-03 07:42 | Outpatient (CLI) | payer MEDICARE, MEDICAID, SELFPAY ==
--- OUTSIDE RECORDS SUMMARY | 2025-01-04 14:00 | XMS_ITS | Encounter Summary ---
Author Organization Healthcare Address [address] [id number] Care Team Providers Care Applications Engineering Manager Name Role Phone Inocencia Hastings APRN, DNP Unavailable +1- [phone] Ly Morales APRN Primary Care Provider +1- [phone] Reason for Visit * Reason Comments Consult * Consultation (Routine) - Closed Specialty Diagnoses / Procedures Referred By Faustino t Referred To Contact Nephrology Diagnoses Retention, urine Helene Pal, SUPERVISOR AIRCRA[employer] CLEANING, DNP [address] [place] [address] Phone: tel: fax: Referral ID Status Reason Start Date Expiration Date V isits Requested Visits Authorized [id number] Closed Specialty Services Required 11/24/2024 05/26/2026 1 1 Encounter Details Date Type Department Care Team (Late st Contact Info) Description 01/04/2025 2:00 PM EDT Office Visit [facility] [place] [facility]eral Met[facility] [address] [facility], [address] [place] [address] Gerson Vance MD [address] [place] [address] History of proteinuria syndrome (Primary [...] (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 He [...] LIGAMENT REPAIR Right APPENDECTOMY N/A Appendectomy from [facility] ESOPHAGOGASTRODUODENOSCOPY Right IR PAIN PUMP IMPLANT/ REPLACEMENT KNEE SURGERY Right ACL/MCL repair SPINAL CORD STIMULATOR IMPLANT Lumbar SPINE SURGERY 07/27/2018 L4-5 laminectomy TONSILLECTOMY N/A Tonsillectomy from [facility] [3] Family History Problem Relation Name Age [...] Description 03/13/2025 9:00 AM EDT Office Visit [facility] [address] [place] [address] Helene Pal, SUPERVISOR [employer]AN[employer], DNP [address] [place] [address] documented as of this encounter [...] 6:55 PM EDT Testing performed on Jack [employer] Lab Assistant, standardized against NIST SRM [id number]. When testing [...] t [facility] [address] [place] [address] * (ABNORMAL) CBC and Differential (01/04/2025 2:39 PM EDT) WBC Count 7.75 3.70 - 10.30 10*3/uL LAB HEMATOLOGY METHOD 01/04/2025 5:27 PM EDT [facility] RBC Count 4.93 4.60 - 6.10 10*6/uL LAB HEMATOLOGY METHOD 01/04/2025 5:27 PM EDT [facility] HGB 14.4 13.7 - 17.5 g/dL LAB HEMATOLOGY METHOD 01/04/2025 5:27 PM EDT [facility] HCT 44.0 40.0 - 51.0 % LAB HEMATOLOGY METHOD 01/04/2025 5:27 PM EDT [facility] Platelet Count 292 155 - 369 10*3/uL LAB HEMATOLOGY METHOD 01/04/2025 5:27 PM EDT [facility] MCV 89 79 - 98 fL LAB HEMATOLOGY METHOD 01/04/2025 5:27 PM EDT [facility] MCH 29.2 26.0 - 32.0 pg LAB HEMATOLOGY METHOD 01/04/2025 5:27 PM EDT [facility] MCHC 32.7 30.7 - 35.5 g/dL LAB HEMATOLOGY METHOD 01/04/2025 5:27 PM EDT [facility] RDW 14.6(H) 11.5 - 14.5 % LAB HEMATOLOGY METHOD 01/04/2025 5:27 PM EDT [facility] MPV 9.9 8.8 - 12.5 fL LAB HEMATOLOGY METHOD 01/04/2025 5:27 PM EDT [facility] nRBC 0.0 <=0.0 per 100 WBCs LAB HEMATOLOGY METHOD 01/04/2025 5:27 PM EDT [facility] Differential Type Automated LAB HEMATOLOGY METHOD 01/04/2025 5:27 PM EDT [facility] Neutrophils % 57 % LAB HEMATOLOGY METHOD 01/04/2025 5:27 PM EDT [facility] Lymphocytes % 27 % LAB HEMATOLOGY METHOD 01/04/2025 5:27 PM EDT [facility] Monocytes % 9 % LAB HEMATOLOGY METHOD 01/04/2025 5:27 PM EDT [facility] Eosinophils % 5 % LAB HEMATOLOGY METHOD 01/04/2025 5:27 PM EDT [facility] Basophils % 1 % LAB HEMATOLOGY METHOD 01/04/2025 5:27 PM EDT [facility] Immature Granulocytes % 1 % LAB HEMATOLOGY METHOD 01/04/2025 5:27 PM EDT [facility] Neutrophils Absolute 4.49 1.60 - 6.10 10*3/uL LAB HEMATOLOGY METHOD 01/04/2025 5:27 PM EDT [facility] Lymphocytes Absolute 2.06 1.20 - 3.90 10*3/uL LAB HEMATOLOGY METHOD 01/04/2025 5:27 PM EDT [facility] Monocytes Absolute 0.70 0.30 - 0.90 10*3/uL LAB HEMATOLOGY METHOD 01/04/2025 5:27 PM EDT [facility] Eosinophils Absolute 0.40 0.00 - 0.50 10*3/uL LAB HEMATOLOGY METHOD 01/04/2025 5:27 PM EDT [facility] Basophils Absolute 0.04 0.00 - 0.10 10*3/uL LAB HEMATOLOGY METHOD 01/04/2025 5:27 PM EDT [facility] Immature Granulocytes Absolute 0.06 0.00 - 0.06 10*3/uL LAB HEMATOLOGY METHOD 01/04/2025 5:27 PM EDT [facility] Blood Venous blood specimen / Unknown Venipuncture / Unknown 01/04/2025 2:39 PM EDT 01/04/2025 2:39 PM EDT Narrative [facility] - 01/04/2025 5:27 PM EDT Therapeutic decision making should be based on absolute values, rather than percentages. us Gerson Vance MD LAB BLOOD ORDERABLES Final Resul t [facility] [address] [place] [address] * (ABNORMAL) Renal Function Panel, Plasma (01/04/2025 2:39 PM EDT) Glucose, Plasma 121(H) 74 - 99 mg/dL 01/04/2025 5:47 PM EDT [facility] BUN, Plasma 8 7 - 21 mg/dL 01/04/2025 5:47 PM EDT [facility] Creatinine, Plasma 1.07 0.70 - 1.20 mg/dL 01/04/2025 5:47 PM EDT [facility] BUN/Creatinine Ratio 7 01/04/2025 5:47 PM EDT [facility] Sodium, Plasma 141 136 - 145 mmol/L 01/04/2025 5:47 PM EDT [facility] Potassium, Plasma 4.0 3.6 - 4.9 mmol/L 01/04/2025 5:47 PM EDT [facility] Chloride, Plasma 105 97 - 107 mmol/L 01/04/2025 5:47 PM EDT [facility] CO2, Plasma 23 22 - 29 mmol/L 01/04/2025 5:47 PM EDT [facility] Anion Gap 13 6 - 16 mmol/L 01/04/2025 5:47 PM EDT [facility] Total Calcium, Plasma 9.2 8.9 - 10.2 mg/dL 01/04/2025 5:47 PM EDT [facility] Phosphorus, Plasma 4.0 2.5 - 4.5 mg/dL 01/04/2025 5:47 PM EDT [facility] Albumin, Plasma 4.6 3.5 - 5.2 g/dL 01/04/2025 5:47 PM EDT [facility] eGFRcr 91.7 mL/min/1.7 3m*2 01/04/2025 5:47 PM EDT [facility] Comment:Reported eGFRcr in m L/min/1.73m2 is based the CKD-EPI 2020 equation that does not use a race coefficient. Blood Venous blood specimen / Unknown Venipuncture / Unknown 01/04/2025 2:39 PM EDT 01/04/2025 2:39 PM EDT Gerson Vance MD LAB BLOOD ORDERABLES Final Resul t [facility] [address] [place] [address] * Protein, Random, Urine with Creatinine (01/04/2025 2:32 PM EDT) Protein, Urine 10 mg/dL 01/04/2025 5:44 PM EDT [facility] Creatinine, Urine 209 mg/dL 01/04/2025 5:44 PM EDT [facility] Protein/Creati nine Ratio 0.0 mg/mg Creat 01/04/2025 5:44 PM EDT [facility] Urine Urine specimen obtained by clean catch procedure / Unknown Non-blood Collection / Unknown 01/04/2025 2:32 PM EDT 01/04/2025 2:34 PM EDT Gerson Vance MD LAB URINE ORDERABLES Final Resul t Performing Organization Address City/[facility] Co de Phone Number [facility] [address] [place] [address] * Albumin-creatinine ratio, urine, random (01/04/2025 2:32 [...] ORDERABLES Final Resul t Performing Organization Address City/[facility]/ZIP Co de Phone Number [facility] [address] [place] [address] * (ABNORMAL) Urinalysis with reflex microscopic (Culture NOT Included) (01/04/2025 2:32 PM EDT) Color, Urine Yellow LAB URINALYSIS - AUTOMATED METHOD 01/04/2025 6:07 PM EDT [facility] Clarity, Urine Clear LAB URINALYSIS - AUTOMATED METHOD 01/04/2025 6:07 PM EDT [facility] Spec [place], Urine 1.020 1.005 - 1.030 LAB URINALYSIS - AUTOMATED METHOD 01/04/2025 6:07 PM [facility] pH, Urine 5.5 5.0 - 8.0 LAB URINALYSIS - AUTOMATED METHOD 01/04/2025 6:07 PM [facility] Protein, Urine Negative Negative mg/dL LAB URINALYSIS - AUTOMATED METHOD 01/04/2025 6:[facility] Glucose, Urine Negative Negative mg/dL LAB URINALYSIS - AUTOMATED METHOD 01/04/2025 6:07 PM [facility] Ketones, Urine Trace(A) Negative mg/dL LAB URINALYSIS - AUTOMATED METHOD 01/04/2025 6:07 PM [facility] Blood, Urine Trace(A) Negative LAB URINALYSIS - AUTOMATED METHOD 01/04/2025 6:07 PM [facility] Bilirubin, Urine Negative Negative LAB URINALYSIS - AUTOMATED METHOD 01/04/2025 6:07 PM [facility] Urobilinogen, Urine 1.0 0.2 to 1.0 mg/dL LAB URINALYSIS - AUTOMATED METHOD 01/04/2025 6:07 PM [facility] Leukocytes, Urine Negative Negative LAB URINALYSIS - AUTOMATED METHOD 01/04/2025 6:07 PM [facility] Nitrite, Urine Negative Negative LAB URINALYSIS - AUTOMATED METHOD 01/04/2025 6:07 PM [facility] RBC, Urine 4 - 10(A) 0 to 3 /HPF 01/04/2025 6:07 PM [facility] Comment:This result was prev iously suppressed from the chart. WBC, Urine 0 - 5 0 to 5 /HPF 01/04/2025 6:07 PM T [facility] Comment:This result was prev iously suppressed from the chart. Squamous Epithelial Cells 0 - 2 0 to 5 /HPF 01/04/2025 6:07 PM T [facility] Comment:This result was prev iously suppressed from the chart. Hyaline Casts 0 - 2 0 to 5 /LPF 01/04/2025 6:07 PM [facility] Comment:This result was prev iously suppressed from the chart. Bacteria, Urine Negative Negative 01/04/2025 6:07 PM T [facility] Comment:This result was prev iously suppressed from the chart. Urine Urine specimen obtained by clean catch procedure / Unknown Non-blood Collection / Unknown 01/04/2025 2:32 PM EDT 01/04/2025 2:34 PM EDT Narrative [facility] - 01/04/2025 6:07 PM EDT Performed by manual method us Gerson Vance MD LAB URINE ORDERABLES Final Resul t [facility] [address] [place] [address] documented in this encounter Visit Diagnoses Diagnosis [...] documented as of this encounter Care Teams Applications Engineering Manager Relationship Specialty Start Date End Date Ly Morales APRN [address] [place] [address] PCP - General 12/29/22 Inocencia Hastings APRN, DNP [address] [place] [address] Nurse Practitioner Neurosurgery 07/11/22 documented as of this encounter
--- NOTE | 2025-03-03 07:44 | XR_ITS ---
FINAL REPORT CLINICAL HISTORY: Deformity of right foot COMPARISON: 12/09/2024 FINDINGS: RIGHT FOOT Three views demonstrate no acute fracture or dislocation. The joint spaces appear normal. No acute soft tissue abnormality is seen. IMPRESSION: No acute bony abnormality. Reviewed, Interpreted and Dictated by William Carnes MD Transcribed by Jessica Salinas Authenticated and [facility]
--- OUTSIDE RECORDS SUMMARY | 2025-03-03 07:44 | XMS_ITS | Clinical Summary ---
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 Abnormal liver function tests 09/25/2022 Pulmonary emphysema 09/25/2022 Gastro-esophageal reflux disease with esophagiti s 09/03/2022 Dizziness 04/03/2022 Tear of right acetabular labrum 09/17/2021 Overview (09/17/2021): Added automatically from request for surgery [id number] Acute pharyngitis 03/22/2021 Hip pain 11/08/2020 Injury [...] Description 01/04/2025 2:00 PM EDT Office Visit [facility] Nephrology, Bone & Mineral Metabolism [address] , [address] [place] [address] Gerson Vance MD History of proteinuria syndrome (Primary Dx); Retention, urine; Stage 3a chronic kidney disease (CMS/HCC) 01/04/2025 Travel 12/29/2024 Telephone [facility] Nephrology, Bone & Mineral Metabolism [address] , [address] [place] [address] Hillary Ruiz from Last 3 Months Immunizations Immunization Administration [...] 01/04/2025 1:57 PM EDT pt admits to corbin frankel, secure chat sent to DR. Vance Temperature [...] Office Visit [facility] [address], [address] [place] [address] Helene Pal, CLARIFIER, DNP [address] [place] [address] Health Maintenance Due Date Last [...] - Risk 2-dose series) 04/18/2023 10/16/2022, 07/27/2018 [id number] Vaccine (4 - 2023- season) 2024 10/02/2022, 05/09/2021, 04/10/2021 [facility]-Influenza Vaccine (#1) 04/10/202504/15, 05/19/2023, 05/22/2022, Additional history exists [facility]-Depression Screening 11/24/2025 11/24/2024 [facility]-DTaP,Tdap,and Td Vaccines (3 - Td or Tdap) 10/18/2031 10/17/2021, 01/13/2005 [facility]-Zoster Vaccines (1 of 2) 12/08/2037 [facility]-Pneumococcal Vaccine: Pediatrics (0 to 5 Years) and At-Risk Patients (6 to 49 Years) Completed 10/16/2022, 06/18/2010 [facility]-Obesity Intervention Completed 025, 07/04/2024, 05/06/2023, Additional history exists [facility]-HIB Vaccines Aged Out No longer e ligible based on patient's age to complete this topic [facility]-IPV Vaccines Aged Out No longer e ligible based on patient's age to complete this topic [facility]-Rotavirus Vaccines Aged Out No lo nger eligible based on patient's age to complete this topic Medical Devices Implanted Type Area Animal Laboratory Technician Device Identifier Shelf Expiration Date Model / Serial / Lot Scs Lead- 9 Implanted:Qty: 2 on 07/27/2019 Lead Back Medtronic [id number] / / Medtronic Spinal Cord Stimulator- Implanted:07/10 (Quantity not on file) Spinal Cord Stimulator Back Medtronic [id number] / [id number] / Description:LEAD MODEL: [id number], qty 2 [...] of proteinuria syndrome ALBUMIN, URINE, RANDOM Routine 01/04/2025 2:32 PM EDT History of proteinuria syndrome PROTEIN, URINE, RANDOM WITH CREATININE Routine 01/04/2025 2:32 PM EDT History of proteinuria syndrome from Last 3 Months Results * Vitamin D 25 Hydroxy (01/04/2025 2:39 PM EDT) Vitamin D 25 Hydroxy 22.2 20.0 - 80.0 ng/mL 01/04/2025 6:55 PM EDT [facility] Blood Venous blood specimen / Unknown Venipuncture / Unknown 01/04/2025 2:39 PM EDT 01/04/2025 2:39 PM EDT Narrative [facility] - 01/04/2025 6:55 PM EDT Testing performed on [employer] Front Office Assistant, standardized against NIST SRM [id number]. When [...] MD LAB BLOOD ORDERABLES Final Resul t [facility] [address] [place] [address] * (ABNORMAL) CBC and Differential (01/04/2025 2:39 PM EDT) WBC Count 7.75 3.70 - 10.30 10*3/uL LAB HEMATOLOGY METHOD 01/04/2025 5:27 PM EDT [facility] RBC Count 4.93 4.60 - 6.10 10*6/uL LAB HEMATOLOGY METHOD 01/04/2025 5:27 PM EDT [facility] HGB 14.4 13.7 - 17.5 g/dL LAB HEMATOLOGY METHOD 01/04/2025 5:27 PM EDT [facility] HCT 44.0 40.0 - 51.0 % LAB HEMATOLOGY METHOD 01/04/2025 5:27 PM EDT [facility] Platelet Count 292 155 - 369 10*3/uL LAB HEMATOLOGY METHOD 01/04/2025 5:27 PM EDT [facility] MCV 89 79 - 98 fL LAB HEMATOLOGY METHOD 01/04/2025 5:27 PM EDT [facility] MCH 29.2 26.0 - 32.0 pg LAB HEMATOLOGY METHOD 01/04/2025 5:27 PM EDT [facility] MCHC 32.7 30.7 - 35.5 g/dL LAB HEMATOLOGY METHOD 01/04/2025 5:27 PM EDT [facility] RDW 14.6(H) 11.5 - 14.5 % LAB HEMATOLOGY METHOD 01/04/2025 5:27 PM EDT [facility] MPV 9.9 8.8 - 12.5 fL LAB HEMATOLOGY METHOD 01/04/2025 5:27 PM EDT [facility] nRBC 0.0 <=0.0 per 100 WBCs LAB HEMATOLOGY METHOD 01/04/2025 5:27 PM EDT [facility] Differential Type Automated LAB HEMATOLOGY METHOD 01/04/2025 5:27 PM EDT [facility] Neutrophils % 57 % LAB HEMATOLOGY METHOD 01/04/2025 5:27 PM EDT [facility] Lymphocytes % 27 % LAB HEMATOLOGY METHOD 01/04/2025 5:27 PM EDT [facility] Monocytes % 9 % LAB HEMATOLOGY METHOD 01/04/2025 5:27 PM EDT [facility] Eosinophils % 5 % LAB HEMATOLOGY METHOD 01/04/2025 5:27 PM EDT [facility] Basophils % 1 % LAB HEMATOLOGY METHOD 01/04/2025 5:27 PM EDT [facility] Immature Granulocytes % 1 % LAB HEMATOLOGY METHOD 01/04/2025 5:27 PM EDT [facility] Neutrophils Absolute 4.49 1.60 - 6.10 10*3/uL LAB HEMATOLOGY METHOD 01/04/2025 5:27 PM EDT [facility] Lymphocytes Absolute 2.06 1.20 - 3.90 10*3/uL LAB HEMATOLOGY METHOD 01/04/2025 5:27 PM EDT [facility] Monocytes Absolute 0.70 0.30 - 0.90 10*3/uL LAB HEMATOLOGY METHOD 01/04/2025 5:27 PM EDT [facility] Eosinophils Absolute 0.40 0.00 - 0.50 10*3/uL LAB HEMATOLOGY METHOD 01/04/2025 5:27 PM EDT [facility] Basophils Absolute 0.04 0.00 - 0.10 10*3/uL LAB HEMATOLOGY METHOD 01/04/2025 5:27 PM EDT [facility] Immature Granulocytes Absolute 0.06 0.00 - 0.06 10*3/uL LAB HEMATOLOGY METHOD 01/04/2025 5:27 PM EDT [facility] Blood Venous blood specimen / Unknown Venipuncture / Unknown 01/04/2025 2:39 PM EDT 01/04/2025 2:39 PM EDT Narrative [facility] - 01/04/2025 5:27 PM EDT Therapeutic decision making should be based on absolute values, rather than percentages. Gerson Vance MD LAB BLOOD ORDERABLES Final Resul t [facility] [address] [place] [address] * (ABNORMAL) Renal Function Panel, Plasma (01/04/2025 2:39 PM EDT) Glucose, Plasma 121(H) 74 - 99 mg/dL 01/04/2025 5:47 PM EDT [facility] BUN, Plasma 8 7 - 21 mg/dL 01/04/2025 5:47 PM EDT [facility] Creatinine, Plasma 1.07 0.70 - 1.20 mg/dL 01/04/2025 5:47 PM EDT [facility] BUN/Creatinine Ratio 7 01/04/2025 5:47 PM EDT [facility] Sodium, Plasma 141 136 - 145 mmol/L 01/04/2025 5:47 PM EDT [facility] Potassium, Plasma 4.0 3.6 - 4.9 mmol/L 01/04/2025 5:47 PM EDT [facility] Chloride, Plasma 105 97 - 107 mmol/L 01/04/2025 5:47 PM EDT [facility] CO2, Plasma 23 22 - 29 mmol/L 01/04/2025 5:47 PM EDT [facility] Anion Gap 13 6 - 16 mmol/L 01/04/2025 5:47 PM EDT [facility] Total Calcium, Plasma 9.2 8.9 - 10.2 mg/dL 01/04/2025 5:47 PM EDT [facility] Phosphorus, Plasma 4.0 2.5 - 4.5 mg/dL 01/04/2025 5:47 PM EDT [facility] Albumin, Plasma 4.6 3.5 - 5.2 g/dL 01/04/2025 5:47 PM EDT [facility] eGFRcr 91.7 mL/min/1.7 3m*2 01/04/2025 5:47 PM EDT [facility] Comment:Reported eGFRcr in m L/min/1.73m2 is based the CKD-EPI 2020 equation that does not use a race coefficient. Blood Venous blood specimen / Unknown Venipuncture / Unknown 01/04/2025 2:39 PM EDT 01/04/2025 2:39 PM EDT Result [facility] us Gerson Vance MD LAB BLOOD ORDERABLES Final Resul t Performing Organization Address [facility] de Phone Number [facility] [address] [place] [address] * Urinalysis Microscopic Examination (01/04/2025 2:32 PM EDT) Urine Urine specimen obtained by clean catch procedure / Unknown Non-blood Collection / Unknown 01/04/2025 2:32 PM EDT 01/04/2025 2:34 PM EDT Result Anuj Vance MD LAB URINE ORDERABLES Final Resul t Performing Organization Address [facility] Phone Number [facility] [address] [place] [address] * Albumin-creatinine ratio, urine, random (01/04/2025 2:32 PM EDT) Microalbumin, Urine <1.2 <1.9 mg/dL 01/04/2025 6:09 PM EDT [facility] Creatinine, Urine 215 mg/dL 01/04/2025 6:09 PM EDT [facility] Albumin/Creatin ine Ratio 01/04/2025 6:09 PM EDT [facility] Comment:Unable to calculate, at least one value is above or below the detection limit. Urine Urine specimen obtained by clean catch procedure / Unknown Non-blood Collection / Unknown 01/04/2025 2:32 PM EDT 01/04/2025 2:34 PM EDT us Gerson Vance MD LAB URINE ORDERABLES Final Resul t Performing Organization Address [facility] de Phone Number [facility] [address] [place] [address] * Protein, Random, Urine with Creatinine (01/04/2025 2:32 PM EDT) Protein, Urine 10 mg/dL 01/04/2025 5:44 PM EDT [facility] Creatinine, Urine 209 mg/dL 01/04/2025 5:44 PM EDT [facility] Protein/Creati nine Ratio 0.0 mg/mg Creat 01/04/2025 5:44 PM EDT [facility] Urine Urine specimen obtained by clean catch procedure / Unknown Non-blood Collection / Unknown 01/04/2025 2:32 PM EDT 01/04/2025 2:34 PM EDT us Gerson Vance MD LAB URINE ORDERABLES Final Resul t [facility] [address] [place], [place] [id number] * (ABNORMAL) Urinalysis with reflex microscopic (Culture NOT Included) (01/04/2025 2:32 PM EDT) Color, Urine Yellow LAB URINALYSIS - AUTOMATED METHOD 01/04/2025 6:07 PM EDT [facility] Clarity, Urine Clear LAB URINALYSIS - AUTOMATED METHOD 01/04/2025 6:07 PM EDT [facility] Spec Jud, Urine 1.020 1.005 - 1.030 LAB URINALYSIS - AUTOMATED METHOD 01/04/2025 6:07 PM EDT [facility] pH, Urine 5.5 5.0 - 8.0 LAB URINALYSIS - AUTOMATED METHOD 01/04/2025 6:07 PM EDT [facility] Protein, Urine Negative Negative mg/dL LAB URINALYSIS - AUTOMATED METHOD 01/04/2025 6:07 PM EDT [facility] Glucose, Urine Negative Negative mg/dL LAB URINALYSIS - AUTOMATED METHOD 01/04/2025 6:07 PM EDT [facility] Ketones, Urine Trace(A) Negative mg/dL LAB URINALYSIS - AUTOMATED METHOD 01/04/2025 6:07 PM EDT [facility] Blood, Urine Trace(A) Negative LAB URINALYSIS - AUTOMATED METHOD 01/04/2025 6:07 PM EDT [facility] Bilirubin, Urine Negative Negative LAB URINALYSIS - AUTOMATED METHOD 01/04/2025 6:07 PM EDT [facility] Urobilinogen, Urine 1.0 0.2 to 1.0 mg/dL LAB URINALYSIS - AUTOMATED METHOD 01/04/2025 6:07 PM EDT [facility] Leukocytes, Urine Negative Negative LAB URINALYSIS - AUTOMATED METHOD 01/04/2025 6:07 PM EDT [facility] Nitrite, Urine Negative Negative LAB URINALYSIS - AUTOMATED METHOD 01/04/2025 6:07 PM EDT [facility] RBC, Urine 4 - 10(A) 0 to 3 /HPF 01/04/2025 6:07 PM EDT [facility] Comment:This result was prev iously suppressed from the chart. WBC, Urine 0 - 5 0 to 5 /HPF 01/04/2025 6:07 PM EDT [facility] Comment:This result was prev iously suppressed from the chart. Squamous Epithelial Cells 0 - 2 0 to 5 /HPF 01/04/2025 6:07 PM EDT [facility] Comment:This result was prev iously suppressed from the chart. Hyaline Casts 0 - 2 0 to 5 /LPF 01/04/2025 6:07 PM EDT [facility] Comment:This result was prev iously suppressed from the chart. Bacteria, Urine Negative Negative 01/04/2025 6:07 PM EDT [facility] Comment:This result was prev iously suppressed from the chart. Urine Urine specimen obtained by clean catch procedure / Unknown Non-blood Collection / Unknown 01/04/2025 2:32 PM EDT 01/04/2025 2:34 PM EDT Narrative [facility] - 01/04/2025 6:07 PM EDT Performed by manual method us Gerson Vance MD LAB URINE ORDERABLES Final Resul t [facility] [address] [place] [address] from Last 3 Months Insurance MEDICARE Care Teams Broadcast Chief Engineer Relationship Specialty Start Date End Date Ly Morales APRN [address] [place] [address] PCP - General 12/29/22 Inocencia Hastings APRN, DNP [id number] [place] [address] Nurse Practitioner Neurosurgery 07/11/22
--- OUTSIDE RECORDS SUMMARY | 2025-03-03 07:44 | XMS_ITS | Encounter Summary ---
Author Organization Healthcare Address [address] [place] [address] Care Team Providers Care Hand Crocheter Name Role Phone Mir Javier MD Primary Care Provider [phone] Inocencia Hastings STORE RECEIVING SPECIALIST, DNP Unavailable [phone] Ly Morales STORE RECEIVING SPECIALIST Primary Care Provider [phone] Encounter Details Date Type Department Care Team (Late st Contact Info) Description 06/24/2022 Orders Only External Location [address] [place] [address] Dimple Soliz, STORE RECEIVING SPECIALIST [address] [facility] [address] [facility] [address] [place] [address] Social History Tobacco Use Types [...] Description 03/13/2025 9:00 AM EDT Office Visit [place] [facility] [address] [place] [address] Helene Pal, STORE RECEIVING SPECIALIST, DNP [address] [place] [address] documented as of this encounter Procedures Procedure Name Priority Date/Time Associated Diagnosis Comments US OUTSIDE IMAGES 06/24/2022 1:57 PM EST documented in this encounter Results * US OUTSIDE IMAGES (06/24/2022 1:57 PM EST) Anatomical Region Laterality Modality Ultrasound 06/24/2022 1:57 PM EST us Dimple Soliz STORE RECEIVING SPECIALIST IMG US PROCEDURES Elicia l Result documented in this encounter Visit Diagnoses Not on filedocumented in this encounter Additional Health Concerns Assessment Noted Time A fall risk assessment has been complete d for the patient 12/12/2021 2:44 PM EDT documented as of this encounter Care Teams Hand Crocheter Relationship Specialty Start Date End Date Mir Javier MD [address] [place] [address] PCP - General 12/21/20 12/28/22 Ly Morales APRN [address] [place] [address] PCP - General 12/29/22 Inocencia Hastings APRN, BETO [address] [place] [address] Nurse Practitioner Neurosurgery 07/11/22 documented as of this encounter
--- OUTSIDE RECORDS SUMMARY | 2025-03-03 07:44 | XMS_ITS | Encounter Summary ---
Author Organization Healthcare Address [address] [place] [address] Care Team Providers Care Project Lead Name Role Phone Mir Javier MD Primary Care Provider [phone] Inocencia Hastings APRN, DNP Unavailable [phone] Ly Morales APRN Primary Care Provider [phone] Encounter Details Date Type Department Care Team (Late st Contact Info) Description 06/09/2022 Orders Only External Location [address] [place] [address] Alex Perez MD [address] [facility] [address] [id number] Social History Tobacco Use Types Packs/Day Years [...] Description 03/13/2025 9:00 AM EDT Office Visit [place] [facility] [address] [place] [address] Helene PalPATRICIA, DNP [address] [place] [address] documented as of this encounter Procedures Procedure [...] documented as of this encounter Care Teams Project Lead Relationship Specialty Start Date End Date iMr Javier MD [address] [place] [address] PCP - General 12/21/20 12/28/22 Ly Morales APRN [address] [place] [address] PCP - General 12/29/22 Inocencia Hastings APRN, BETO [address] [place] [address] Nurse Practitioner Neurosurgery 07/11/22 documented as of this encounter
--- OUTSIDE RECORDS SUMMARY | 2025-03-03 07:45 | XMS_ITS | Data Portability ---
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 He also had positive smooth muscle antibody and HARMEET previously. Liver biopsy 08/2022 mostly c/w hepatic steatosis with minimal fibrosis. -Will obtain labs from recent [facility] ER visit. -He is immune to hepatitis A & B. - Avoid NSAIDs and alcohol. - Do not take over 2 g of acetaminophen daily. - Discussed weight loss and healthy diet. -Patient advised to not smoke. 4) Constipation: Start Miralax once daily. 5) Nausea: Suspect related to constipation. [email or web address] Not available 03/16/2023 23:23:27 Plan of Treatment Reminders Order Date Submit Date Provider Last Modified By Organization Details Last Modified Time Details Appointments None recorded. Lab PT/INR 2021 022 [email or web address] [place] [address] (Registration ), [address], [place], [place], , 08:36:09 hemochroma tosis mutation (hfe), blood/tiss ue [address] (Registration ), [address], [place], [address], 08:36:09 alpha-1-an titrypsin (aat) phenotype, serum [address] (Registration ), [address], [place], [address], 08:36:09 alpha-1-an titrypsin (aat), QN, serum [address] (Registration ), [address], [place], [address], 08:36:09 ceruloplas min, serum 2021 [facility] (Registration ), [address], [place], [address], 17:11:36 igg, quantitati ve, serum 2021 [facility] (Registration ), [address], [place], [address], 17:11:37 liver-kidn ey microsome Ab, serum [address] (Registration ), [address] [facility], [place], [address], 08:36:09 liver fibrosis score panel, hepascore, serum or plasma [address] (Registration ), [address] [facility], [place], [address], 11/10/202 2 08:36:09 mitochondr ial Ab, serum 2021 [facility] (Registration ), [address] [place], [address], 17:11:33 actin smooth muscle Ab, serum 2021 [facility] (Registration ), [address] [place], [address], 15:10:31 hepatitis panel (A+B+C), acute, serum [address] (Registration ), [address] [place], [address], 2 08:36:09 hepatitis B surface Ab, qualitativ e, serum [address] (Registration ), [address] [place], [address], 08:36:10 CBC [address] (Registration ), [address] [place], [address], 08:36:10 CMP, serum or plasma 2021 [facility] (Registration ), [address] [place], [address], 2 02:13:34 hepatitis A Ab, total, serum [address] (Registration ), [address] [place], [address], 2 08:36:10 HARMEET (antinucle ar antibodies ) screen, serum 2021 [facility] (Registration ), [address], [place], [address], 2 17:10:12 Referral pulmonolog ist referral 2021 022 [email or web address] Aquiles Villanueva MD - Pulmonlogist, [address], [address], [place], [address], 2 08:49:48 Procedures None recorded. Surgeries biopsy, liver, ultrasound guided (SURG) [address] (Centralized Scheduling), [address], [place], [address], 2 12:24:18 Imaging PFT, plethysmog radha [address] (Centralized Scheduling), [address], [place], [address], 5 10:29:13 CT, chest, w/o contrast 2022 023 [facility] (Centralized Scheduling), [address], [place], [address], 3 15:42:05 PFT, plethysmog radha [email or web address] (Centralized Scheduling), [address], [place], [address], 3 13:51:51 XR, abdomen [address] (Registration ), [address], [place], [address], 2 08:35:58 US, liver [address] (Centralized Scheduling), [address], [place], [address], 2 08:35:57 Medication Orders pantoprazo le 40 mg tablet,del ayed release 2022 023 [facility], [address] [place] [address] [address] [place], [id number], 4 12:49:00 Miralax 17 gram/dose oral powder 2022 023 [facility], [address] [place] [address] [address], [place], [id number], 3 15:49:37 omeprazole 20 mg capsule,de layed release 2021 023 [facility], [address] [place] [address] [address] [place], [id number], 3 13:12:56 Patient TargetsNo targets recorded. Patient InstructionsNo instructions recorded. 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 1 low Not Available [facility] ([facility]) [address], [place], [address], 06/03/2022 16:28:48 06/03/20 22 06/03/2022 CBC AUTO NO DIFF (HEMO GRAM) HGB 13.9 gm/dL 13.5-1 8.0 Not Available [facility] ([facility]) [address], [place], [address], 06/03/2022 16:28:48 06/03/20 22 06/03/2022 CBC AUTO NO DIFF (HEMO GRAM) HCT 41.7 % 42.0-5 2.0 low Not Available [facility] ([facility]) [address], [place], [address], 06/03/2022 16:28:48 06/03/20 22 06/03/2022 CBC AUTO NO DIFF (HEMO GRAM) MCV 91.6 fL 78-100 Not Available [facility] ([facility]) [address] [facility], [place], [address], 06/03/2022 16:28:48 06/03/20 22 06/03/2022 CBC AUTO NO DIFF (HEMO GRAM) MCH 30.5 pg 27-31 Not Available [facility] ([facility]) [address] [facility], [place], [address], 06/03/2022 16:28:48 06/03/20 22 06/03/2022 CBC AUTO NO DIFF (HEMO GRAM) MCHC 33.3 g/dL 32-36 Not Available [facility] ([facility]) [address] [facility], [place], [address], 06/03/2022 16:28:48 06/03/20 22 06/03/2022 CBC AUTO NO DIFF (HEMO GRAM) RDW 13.3 % 11.5-1 4.0 Not Available [facility] ([facility]) [address] [facility], [place], [address], 06/03/2022 16:28:48 06/03/20 22 06/03/2022 CBC AUTO NO DIFF (HEMO GRAM) platelet count 243 K/uL 150-45 0 Not Available [facility] ([facility]) [address] , [place], [address], 06/03/2022 16:28:48 06/03/20 22 06/03/2022 CBC AUTO NO DIFF (HEMO GRAM) manual differential NO Not Available [facility] ([facility]) [address] , [place], [address], 06/03/2022 16:28:48 06/03/20 22 06/03/2022 PT (PROT HROMB IN TIME) W INR prothrombin time 10.4 secon ds 9.3-11 .4 Not Available [facility] ([facility]) [address] , [place], [address], 06/04/2022 02:12:42 06/03/20 22 06/03/2022 PT (PROT [...] Mecha nical Heart Valve s Not Available [facility] ([facility]) [address] , [place], [address], 06/04/2022 02:12:42 06/03/20 22 06/03/2022 COMP METAB OLIC PANEL sodium 138 mmol/ L 136-14 5 Not Available [facility] ([facility]) [address] [place], [address], 06/04/2022 02:13:33 06/03/20 22 06/03/2022 COMP METAB OLIC PANEL potassium 4.2 mmol/ L 3.6-5. 0 Not Available [facility] ([facility]) [address], [place], [address], 06/04/2022 02:13:33 06/03/20 22 06/03/2022 COMP METAB OLIC PANEL chloride 102 mmol/ L 98-107 Not Available [facility] ([facility]) [address] , [place], [address], 06/04/2022 02:13:33 06/03/20 22 06/03/2022 COMP METAB OLIC PANEL carbon dioxide 29.4 mmol/ L 21.0-3 2.0 Not Available [facility] ([facility]) [address] , [place], [address], 06/04/2022 02:13:33 06/03/20 22 06/03/2022 COMP METAB OLIC PANEL anion gap 10.8 Not Available [facility] ([facility]) [address] , [place], [address], 06/04/2022 02:13:33 06/03/20 22 06/03/2022 COMP METAB OLIC PANEL glucose 102 mg/dL 70-120 Not Available [facility] ([facility]) [address] , [place], [address], 06/04/2022 02:13:33 06/03/20 22 06/03/2022 COMP METAB OLIC PANEL BUN 16 mg/dL 7-18 Not Available [facility] ([facility]) [address] , [place], [address], 06/04/2022 02:13:33 06/03/20 22 06/03/2022 COMP METAB OLIC PANEL creatinine 1.0 mg/dL 0.6-1. 3 Not Available [facility] ([facility]) [address] , [place], [address], 06/04/2022 02:13:33 06/03/20 22 06/03/2022 COMP METAB OLIC PANEL glomerular filtration rate >60 mlper min 60- Not Available [facility] ([facility]) [address], [place], [address], 06/04/2022 02:13:33 06/03/20 22 06/03/2022 COMP METAB OLIC PANEL total protein 7.8 g/dL 6.4-8. 2 Not Available [facility] ([facility]) [address], [place], [address], 06/04/2022 02:13:33 06/03/20 22 06/03/2022 COMP METAB OLIC PANEL albumin 4.6 g/dL 3.4-5. 0 Not Available [facility] ([facility]) [address], [place], [address], 06/04/2022 02:13:33 06/03/20 22 06/03/2022 COMP METAB OLIC PANEL globulin 3.2 Not Available [facility] ([facility]) [address], [place], [address], 06/04/2022 02:13:33 06/03/20 22 06/03/2022 COMP METAB OLIC PANEL alb/glob ratio 1.4 0.7-2 Not Available [facility] ([facility]) [address], [place], [address], 06/04/2022 02:13:33 06/03/20 22 06/03/2022 COMP METAB OLIC PANEL calcium 8.6 mg/dL 8.5-10 .5 Not Available [facility] ([facility]) [address], [place], [address], 06/04/2022 02:13:33 06/03/20 22 06/03/2022 COMP METAB OLIC PANEL bilirubin total 0.38 mg/dL 0.10-1 .00 Not Available [facility] ([facility]) [address], [place], [address], 06/04/2022 02:13:33 06/03/20 06/03/2022 COMP METAB OLIC PANEL AST (SGOT) 26 U/L 0-37 Not Available [facility] ([facility]) [address] [facility], [place], [address], 06/04/2022 02:13:33 06/03/20 22 06/03/2022 COMP METAB OLIC PANEL ALT (SGPT) 74 U/L 0-65 high Not Available [facility] ([facility]) [address] [facility], [place], [address], 06/04/2022 02:13:33 06/03/2006/03/2022 COMP METAB OLIC PANEL alk phosphatase 84 U/L 46-116 Not Available [facility] ([facility]) [address] [facility], [place], [address], 06/04/2022 02:13:33 06/03/20 22 06/05/2022 HARMEET W/REF LUCY IF POSIT CARLOS antinuclear Ab, direct POSITI VE negati ve delta Not Available [facility] ([facility]) [address] [facility], [place], [address], 06/05/2022 17:10:12 06/03/20 22 06/05/2022 HARMEET W/REF LUCY IF POSIT CARLOS anti-ds DNA Ab <1 IU/mL 0-9 Negat carlos <5 Equiv ocal 5 - 9 Posit carlos >9 Not Available [facility] ([facility]) [address] [facility], [place], [address], 06/05/2022 17:10:12 06/03/20 22 06/05/2022 HARMEET W/REF LUCY IF POSIT CARLOS curriculum director Ab >8.0 ai 0.0-0. 9 high Not Available [facility] ([facility]) [address] [facility], [place], [address], 06/05/2022 17:10:12 06/03/20 22 06/05/2022 HARMEET W/REF LUCY IF POSIT CARLOS mccall Ab <0.2 ai 0.0-0. 9 Not Available [facility] ([facility]) [address] [facility], [place], [address], 06/05/2022 17:10:12 06/03/20 22 06/05/2022 HARMEET W/REF LUCY IF POSIT CARLOS antisclerode rma-70 Ab <0.2 ai 0.0-0. 9 Not Available [facility] ([facility]) [address] [place], [address], 06/05/2022 17:10:12 06/03/20 22 06/05/2022 HAREMET W/REF LUCY IF POSIT CARLOS sjogren's anti-ss-A <0.2 ai 0.0-0. 9 Not Available [facility] ([facility]) [address] [place], [address], 06/05/2022 17:10:12 06/03/20 22 06/05/2022 HARMEET W/REF LUCY IF POSIT CARLOS sjogren's anti-ss-B <0.2 ai 0.0-0. 9 Not Available [facility] ([facility]) [address] [facility], [place], [address], 06/05/2022 17:10:12 06/03/20 22 06/05/2022 HARMEET W/REF LUCY IF POSIT CARLOS antichromati n Ab <0.2 ai 0.0-0. 9 Not Available [facility] ([facility]) [address] [place], [address], 06/05/2022 17:10:12 06/03/20 22 06/05/2022 HARMEET W/REF LUCY IF POSIT CARLOS anti-eulalio-1 <0.2 ai 0.0-0. 9 Not Available [facility] ([facility]) [address] [place], [address], 06/05/2022 17:10:12 06/03/20 22 06/05/2022 HARMEET W/REF LUCY IF POSIT CARLOS anti-centrom ere B antibodies <0.2 ai 0.0-0. 9 Not Available [facility] ([facility]) [address], [place], [address], 06/05/2022 17:10:12 06/03/20 22 06/05/2022 HARMEET W/REF [...] ----- ----- ----- ----- --- ----- ---- PROJECT PLANNER Mixed Conne ctive Tissu e Disea se 95% (U1 nRNP, SLE 30 - 50% anti- ribon ucleo prote in) Polym yosit is and/o r Manning tomyo sitis 20% ----- ----- ----- ----- - ----- ----- ----- ----- ---- ----- ---- Scl-7 0 (anti DNA Scler oderm a (diff use) 20 - 35% topoi maritza ase) Crest 13% ----- ----- ----- ----- - ----- ----- ----- ----- ---- ----- ---- Eulalio-1 Polym yosit is and/o r Manning tomyo sitis 20 - 40% ----- ----- ----- ----- - ----- ----- ----- ----- ---- ----- ---- Centr omere B Scler oderm a - Crest varia nt 80% Perfo rmed at: [facility] [place] [address] [facility], [place] [address] Lab Direc tor: Roland ludwig PhD, Phone : [phone] Not Available [facility] ([facility]) [address] [facility], [place], [address], 06/05/2022 17:10:12 06/03/20 22 06/09/2022 ACTIN (SMOO [...] bilia ry cirrh osis. [facility] at: [facility] [place] [address] Lab Direc tor: Roland ludwig PhD, Phone : [phone] Not Available [facility] ([facility]) [address] [facility], [place], [address], 06/09/2022 15:10:31 06/03/20 22 06/17/2022 OLIVIA FIBRO SURE fibrosis score 0.06 0.00-0 .21 Not Available [facility] ([facility]) [address] [facility], [place], [address], 06/17/2022 17:11:29 06/03/20 22 06/17/2022 OLIVIA FIBRO SURE fibrosis stage Commen t F0 - No fibro sis Not Available [facility] ([facility]) [address] [place], [address], 06/17/2022 17:11:29 06/03/20 22 06/17/2022 OLIVIA FIBRO SURE steatosis score 0.81 0.00-0 .30 high Not Available [facility] ([facility]) [address] [facility], [place], [address], 06/17/2022 17:11:29 06/03/20 22 06/17/2022 OLIVIA FIBRO SURE steatosis grade Commen t S3 - Marke d or Sever e Steat osis Not Available [facility] ([facility]) [address] [facility], [place], [address], 06/17/2022 17:11:29 06/03/20 22 06/17/2022 OLIVIA FIBRO SURE olivia score 0.50 0.25 high Not Available [facility] ([facility]) [address] [facility], [place], [address], 06/17/2022 17:11:29 06/03/20 22 06/17/2022 OLIVIA FIBRO SURE olivia grade Commen t N1 - Borde rline or proba ble OLIVIA Not Available [facility] ([facility]) [address] [facility], [place], [address], 06/17/2022 17:11:29 06/03/20 22 06/17/2022 OLIVIA FIBRO SURE height 73 in Not Available [facility] ([facility]) [address] [place], [address], 06/17/2022 17:11:29 06/03/20 22 06/17/2022 OLIVIA FIBRO SURE weight 232 lbs Not Available [facility] ([facility]) [address] [place], [address], 06/17/2022 17:11:29 06/03/20 22 06/17/2022 OLIVIA FIBRO SURE alpha 2-macroglobu jim, qn 135 mg/dL 110-27 6 Not Available [facility] ([facility]) [address] [place], [address], 06/17/2022 17:11:29 06/03/20 22 06/17/2022 OLIVIA FIBRO SURE haptoglobin 214 mg/dL 17-317 Not Available [facility] ([facility]) [address] [place], [address], 06/17/2022 17:11:29 06/03/20 22 06/17/2022 OLIVIA FIBRO SURE apolipoprote in A-1 93 mg/dL 101-17 8 low Not Available [facility] ([facility]) [address] [place], [address], 06/17/2022 17:11:29 06/03/20 22 06/17/2022 OLIVIA FIBRO SURE bilirubin, total 0.2 mg/dL 0.0-1. 2 Not Available [facility] ([facility]) [address] [place], [address], 06/17/2022 17:11:29 06/03/20 22 06/17/2022 OLIVIA FIBRO SURE GGT 37 IU/L 0-65 Not Available [facility] ([facility]) [address] [place], [address], 06/17/2022 17:11:29 06/03/20 22 06/17/2022 OLIVIA FIBRO SURE ALT (SGPT) p5p 62 IU/L 0-55 high Not Available [facility] ([facility]) [address] [place], [address], 06/17/2022 17:11:29 06/03/20 22 06/17/2022 OLIVIA FIBRO SURE AST (SGOT) p5p 27 IU/L 0-40 Not Available [facility] ([facility]) [address] [place], [address], 06/17/2022 17:11:29 06/03/20 22 06/17/2022 OLIVIA FIBRO SURE cholesterol, total 176 mg/dL 100-19 9 Not Available [facility] ([facility]) [address] [place], [address], 06/17/2022 17:11:29 06/03/20 22 06/17/2022 OLIVIA FIBRO SURE glucose, serum 105 mg/dL 70-99 high Not Available [facility] ([facility]) [address] [place], [address], 06/17/2022 17:11:29 06/03/20 22 06/17/2022 OLIVIA FIBRO SURE triglyceride s 228 mg/dL 0-149 high Not Available [facility] ([facility]) [address], [place], [address], 06/17/2022 17:11:29 06/03/20 22 06/17/2022 OLIVIA FIBRO SURE interpretati ons: Commen t . Quant itati ve resul ts of 10 bioch emica ls in combi natio n with age, gende r, heigh t, and weigh t, are josh zed using a compu tatio nal algor ithm to provi de a quant itati ve surro gate marke r (0.0- 1.0) of liver fibro sis (Alexander vir F0-F4 ), hepat ic steat osis [...] had signi fican t NAFLD fibro sis (Alexander vir F2-F4 ) and 11% had cirrh [...] y of 50%(3 ). . Not Available [facility] ([facility]) [address] , [place], [address], 06/17/2022 17:11:29 06/03/20 22 06/17/2022 OLIVIA FIBRO [...] Stage F4 - Cirrh osis Not Available [facility] ([facility]) [address] , [place], [address], 06/17/2022 17:11:29 06/03/20 22 06/17/2022 OLIVIA FIBRO [...] or Sever e Steat osis Not Available [facility] ([facility]) [address] , [place], [address], 06/17/2022 17:11:29 06/03/20 22 06/17/2022 OLIVIA FIBRO SURE olivia scoring Commen t . 0.25 = N0 - Not OLIVIA 0.50 = N1 - Borde rline or proba ble OLIVIA 0.75 = N2 - OLIVIA Not Available [facility] ([facility]) [address], [place], [address], 06/17/2022 17:11:29 06/03/20 22 06/17/2022 OLIVIA FIBRO [...] ction s of fibro sis. Not Available [facility] ([facility]) [address], [place], [address], 06/17/2022 17:11:29 06/03/20 22 06/17/2022 OLIVIA FIBRO SURE comment: Commen t . This test was devel oped and its perfo rmanc e sindhu cteri stics deter mined by [employer]. It has not been clear ed or appro tatiana by the Food and Drug Admin istra tion. The FDA has deter mined that such clear ance or appro melody is not neces ino. . For quest ions regar ding this repor t pleas e conta ct custo dwayne servi ce at [phone]. . Refer ences : . 1. Vivian [...] [facility] [place] [address] [facility] , [place] [address] Lab Direc tor: Chela conley MD, Phone : [phone] Not Available [facility] ([facility]) [address], [place], [address], 06/17/2022 17:11:29 06/03/20 22 06/17/2022 A1A DEFIC [...] matio n and Comme nts. Not Available [facility] ([facility]) [address], [place], [address], 06/17/2022 17:11:30 06/03/20 22 06/17/2022 A1A DEFIC [...] ders to discu ss resul ts at [phone]- GENE (0195 ). . Test Detai ls: Two varia [...] es in the SERPI NA1 gene (NM_0 68223 .4) was perfo rmed by multi plex [...] 10.15 326/j copdf .3.3. 2014. 0182. PMID: 94449 891; PMCID : [id number] . Ashley COBB, Jose landry V, Grey [...] .nih. gov/b ooks/ NBK15 19/ Not Available [facility] ([facility]) [address] [facility], [place], [address], 06/17/2022 17:11:30 06/03/20 22 06/17/2022 A1A DEFIC ENCY PROFI LE electronical ly signed by: Blu whitehead, PhD, [facility] Not Available [facility] ([facility]) [address] [facility], [place], [address], 06/17/2022 17:11:30 06/03/20 22 06/17/2022 A1A DEFIC ENCY PROFI LE a1a rfx to phenotype Blu bailey A1A Pheno type is indic ated for this speci men. Perfo rmed at: [facility] [place] [address] [facility] [place] [address] Lab Direc tor: Chela conley MD, Phone : [phone] Perfo rmed at: [facility] [address] [place] [address] 18[address] Lab Direc tor: Koffi Byrd [facility] , Phone : [phone] Not Available [facility] ([facility]) [address] [facility], [place], [address], 06/17/2022 17:11:30 06/03/20 22 06/17/2022 A1A DEFIC ENCY PROFI LE zukme-7-sucp trypsin,seru m 71 mg/dL 95-164 low Not Available [facility] ([facility]) [address] [facility], [place], [address], 06/17/2022 17:11:30 06/03/20 22 06/17/2022 A1A DEFIC [...] matio n and Comme nts. Not Available [facility] ([facility]) [address], [place], [address], 06/17/2022 17:11:31 06/03/20 22 06/17/2022 A1A DEFIC [...] ders to discu ss resul ts at 2-005 -[phone]- GENE (0973 ). . Test Detai ls: Two varia [...] es in the SERPI NA1 gene (NM_0 01967 .4) was perfo rmed by multi plex [...] 10.15 326/j copdf .3.. 2014. 0182. PMID: 26964 891; PMCID : [id number] . Ashley COBB, Jose landry V, Grey PONCE. Alpha -1 Antit rypsi n Defic iency . 2005Jun 05 Updat ed 2019December 28 . In: Nba MP, Jose salazar HH, Nicholas RA, et al., frandy rs. GeneR gladis s(R) Inter net . Seatlynn vasquez (SARA): [facility] of [facility] [place]; 1992- 2020. Avail able from: https ://gold conrad.ncb i.nlm .nih. gov/b ooks/ NBK15 19/ Not Available [facility] ([facility]) [address] [facility], [place], [address], 06/17/2022 17:11:31 06/03/20 22 06/17/2022 A1A DEFIC ENCY PROFI LE electronical ly signed by: Blu whitehead, PhD, [employer] Not Available [facility] ([facility]) [address] [facility], [place], [address], 06/17/2022 17:11:31 06/03/20 22 06/17/2022 A1A DEFIC ENCY PROFI LE a1a phenotype confirmation MZ Not Available [facility] ([facility]) [address] [facility], [place], [address], 06/17/2022 17:11:31 06/03/20 22 06/17/2022 A1A DEFIC ENCY PROFI LE a1a interpertati on Blu bailey Pheno type testi eze, using Isoel ectri c focus ing (IEF) metho dol ogy, shows confi rmati on of the A-1-A DNA Genot ype test resul t. Perfo rmed at: - [facility] [place] [address] [place] [id number] Lab Direc tor: Chela conley MD, Phone : [phone] Not Available [facility] ([facility]) [address] [facility], [place], [address], 06/17/2022 17:11:31 06/03/20 22 06/17/2022 A1A DEFIC ENCY PROFI LE a1a rfx to phenotype Commen t A1A Pheno type is indic ated for this speci men. Perfo rmed at: [facility] [address] [place] [address] Lab Direc tor: Chela conley MD, Phone : [phone] Perfo rmed at: - [facility] rp RTP [address] [place] [address] 0150 Lab Direc tor: Koffi Byrd [facility] , Phone : [phone] Not Available [facility] ([facility]) [address] [facility], [place], [address], 06/17/2022 17:11:31 06/03/20 22 06/17/2022 A1A DEFIC ENCY PROFI LE iljys-9-czuf trypsin,seru m 71 mg/dL 95-164 low Not Available [facility] ([facility]) [address] [facility], [place], [address], 06/17/2022 17:11:31 06/03/20 22 06/17/2022 HEP B S AB PERRY hep B surface Ab 27.3 mIU/m L immuni ty>9.9 Statu s of Immun ity Anti- HBs Level ----- ----- ----- --- ----- ----- ---- Incon siste nt with Immun ity 0.0 - 9.9 Consi stent with Immun ity >9.9 Perfo rmed at: [facility] n [address] [facility], [place] [address] 1269 Lab Direc tor: Roland ludwig PhD, Phone : [phone] Not Available [facility] ([facility]) [address] [facility], [place], [address], 06/17/2022 17:11:32 06/03/20 22 06/17/2022 MITOC HONDR IAL ANTIB ODIES mitochondria l (M2) Ab <20.0 units 0.0-20 .0 Negat carlos 0.0 - 20.0 Equiv ocal 20.1 - 24.9 Posit carlos >24.9 . Mitoc hondr ial (M2) Antib odies are found in 90-96 % of patie nts with prima ry bilia ry cirrh osis. Perfo rmed at: [facility] n [address] [facility], [place] [address] 12[address] Lab Direc tor: Roland ludwig PhD, Phone : [phone] Not Available [facility] ([facility]) [address] [facility], [place], [address], 06/17/2022 17:11:33 06/03/20 22 06/17/2022 LIVER -KIDN [...] ic HCV infec tion. Perfo rmed at: [facility] n [address] [facility], [place] [address] 12[address] Lab Direc tor: Roland ludwig PhD, Phone : [phone] Not Available [facility] ([facility]) [address] [facility], [place], [address], 06/17/2022 17:11:34 06/03/20 22 06/17/2022 HERED ITARY [...] ders to discu ss resul ts at [phone] (8415 ). . Test Detai ls: Three varia nts josh zed: c.845 G>A (p.Cy s282T yr), commo nly refer red to as C282Y c.187 C>G (p.Hi s63As p), commo nly refer red to as H63D c.193 A>T (p.Se r65Cy s), commo nly refer red to as S65C . Metho ds/Li mitat ions: DNA Josh sis of the HFE gene (NM_0 91012 .4) was perfo rmed by PCR ampli [...] 3. doi: 10.10 /lucien p.243 30. PMID: 69497 290; PMCID : PMC31 91146 . Devan G, Godfrey vines P, Kathya [...] hg.20 15.12 8. Epub 2014 8. PMID: 13330 218; PMCID : PMC49 71416 . . Sapphire silver, PhD, FACMG Sanjay Pa , PhD Roderick patel, PhD, FACMG Steve whitehead, PhD, FACMG Shar sifuentes, PhD, [employer]MG W Arben Nova, PhD, [employer] Myesha Spencer, PhD, [employer] Harjit live, PhD, FACMG Perfo rmed at: TG - Autumn smith [address] [facility] , [place] [address] Lab Direc tor: Koffi Rochelle [facility] , Phone : [phone] Not Available [facility] ([facility]) [address], [place], [address], 06/17/2022 17:11:35 06/03/20 22 06/17/2022 CERUL OPLAS MIN ceruloplasmi n 21.9 mg/dL 16.0-3 1.0 Perfo rmed at: - [facility] [address] [place] [address] 1269 Lab Direc tor: Roland ludwig PhD, Phone : [phone] Not Available [facility] ([facility]) [address] [place], [address], 06/17/2022 17:11:36 06/03/20 22 06/17/2022 IGG IgG 776 mg/dL 603-16 13 Perfo rmed at: [facility] [address] [place] [address] 1269 Lab Direc tor: Roland ludwig PhD, Phone : [phone] Not Available [facility] ([facility]) [address] [place], [address], 06/17/2022 17:11:37 06/03/20 22 06/17/2022 HEP A AB, TOTAL hep A Ab, total Positi ve negati ve delta Perfo rmed at: [facility] [address] [place] [address] 1265 Lab Direc tor: Roland ludwig PhD, Phone : [phone] Not Available [facility] ([facility]) [address] [facility], [place], [address], 06/17/2022 17:11:39 06/03/20 22 06/18/2022 ACUTE HEPAT ITIS PANEL hep A Ab, IgM Negati ve negati ve Not Available [facility] ([facility]) [address] [facility], [place], [address], 06/18/2022 15:15:27 06/03/20 22 06/18/2022 ACUTE HEPAT ITIS PANEL HBsAg screen Negati ve negati ve Not Available [facility] ([facility]) [address], [place], [address], 06/18/2022 15:15:27 06/03/20 22 06/18/2022 ACUTE HEPAT ITIS PANEL HBsAg confirmation TNP TEST NOT PERFO RMED Not Available [facility] ([facility]) [address] [facility], [place], [address], 06/18/2022 15:15:27 06/03/20 22 06/18/2022 ACUTE HEPAT ITIS PANEL hep B core Ab, IgM NEGATI VE negati ve Not Available [facility] ([facility]) [address] [facility], [place], [address], 06/18/2022 15:15:27 06/03/20 22 06/18/2022 ACUTE HEPAT ITIS PANEL HCV Ab <0.1 s/co_ ratio 0.0-0. 9 Not Available [facility] ([facility]) [address] [facility], [place], [address], 06/18/2022 15:15:27 10/14/19 23 10/13/2022 ACCUL A [...] CoV-2 RNA (RT-P CR, NAAT) Not Available [facility] ([facility]) [address] [facility], [place], [address], 10/13/2022 15:12:31 10/14/19 23 10/13/2022 ACCUL A SARSC OV2 PCR sars2 accula lot # [id number] Not Available [facility] ([facility]) [address] [facility], [place], [address], 10/13/2022 15:12:31 10/14/19 23 10/13/2022 ACCUL A SARSC OV2 PCR sars2 accula expiration date 2022 Not Available [facility] ([facility]) [address] [facility], [place], [address], 10/13/2022 15:12:31 10/14/19 23 10/13/2022 ACCUL A SARSC OV2 PCR internal control accula sars2 OK positi ve Not Available [facility] ([facility]) [address] [facility], [place], [address], 10/13/2022 15:12:31 06/04/20 22 06/03/2022 XR, abdom en, 1 view [facility] [address] [place] [address] Phone: Fax: Name: BILL BENÍTEZ Exam Date: 2021 : [birth year] Age 36 Gender : M Access ion: [id number] Physic joe: MARLON PINTO Facili [...] you for referr nacho BETTS VIVEKBILL to [facility]. Legall y authen ticate d by POPE DANN Ramos 2021-08 16:21: 46 CC'ed Logic: Orderi ng Provid er: NAKITA MASON Attend ing Provid er: NAKITA MASON Referr ing Provid er: NAKITA MASON Admitt ing Provid er: NAKITA MASON [facility] Therapy [address] [place] [address], [place], [address], 06/05/2022 07:15:30 06/20/20 22 06/20/2022 US, liver [facility] [address] [place] [address] Phone: Fax: Name: BILL BENÍTEZ Exam Date: 2021 : [birth year] Age 36 Gender : M Access ion: [id number] Physic joe: NAKITA Dominique MARLON Facili ty: [facility] Facili ty HSV: Outpat ient Exam: LIVER [...] Dr. Linda Cespedes . Transc ribed by oTdd live PA-C Dictat ed By: Linda Oscar Transc ribed By: Linda Cespedes Transc ribed On: 2021 11:02 AM Electr onical ly signed by: Linda Oscar 2021 Thank you for referr BILL [facility] to [facility]. Legall y authen ticate d by DEBORAH GARRETT 2021-08 11:02: 03 CC'ed Logic: Orderi ng Provid er: NAKITA MASON Attend ing Provid er: NAKITA MASON Referr ing Provid er: NAKITA Ulrich ing Provid er: NAKITA [address]ine[address] [place] [address] - Physical Therapy [address] [place] [address], [address], 06/20/2022 15:03:14 08/05/20 22 08/05/2022 CT [facility] [place] [address] Phone: Fax: Name: ISHAN BENÍTEZE Exam Date: 2021 : [birth year] Age 36 Gender : M Access ion: [id number] [id number] Physic joe: JOSE DANIELMIKAEL MARLON Dominique Facili ty: [facility] Facili ty HSV: Outpat ient Exam: CT [...] [facility] Legall y authen ticate d by DEBORAH GARRETT 2021-08 09:57: 45 CC'ed Logic: Orderi ng Provid er: NAKITA MASON Attend ing Provid er: NAKITA MASON Referr ing Provid er: NAKITA MASON Admitt ing Provid er: NAKITA MASON [email or web address] [address] [facility], [place], [address], 08/05/2022 13:51:40 09/25/19 23 09/25/2022 XR, chest , 2 view [facility] Hospit [facility] [address] [place] [address] Phone: Fax: Name: BILL BENÍTEZ Exam Date: : [birth year] Age 36 Gender : M Access ion: [id number] 00 [id number] Physic joe: AQUILES VILLANUEVA Facili ty: [facility] Facili ty HSV: Outpat ient [...] Thank you for referr nacho DOYLEBILL to [facility] Hospit al. Legall y authen ticate d by YVETTE CROFT 09-25 13:16: 32 CC'ed Logic: Orderi ng Provid er: NOLA KWAN Attend ing Provid er: NOLA KWAN Referr ing Provid er: NOLA KWAN Admitt ing Provid er: [facility] [address], [place], [address], 09/25/2022 13:47:39 10/21/19 23 10/20/2022 CT, chest , w/o contr ast [facility] Hospit [facility] [address] [place] [address] Phone: Fax: Name: BILL BENÍTEZ Exam Date: 023 : [birth year] Age 36 Gender : M Access ion: [id number] [id number] Physic joe: AQUILES VILLANUEVA Facili ty: [facility] Facili ty HSV: Outpat ient [...] Thank you for referr BILL Calderon to [facility]. Legall y authen ticate d by POPE DANN Ramos 0 10-20 15:28: 54 CC'ed Logic: Orderi ng Provid er: KOURA FIRAS Attend ing Provid er: KOURA FIRAS Admitt ing Provid er: KOURA FIRAS [facility] [address] [place] [address], [address], 10/21/2022 10:01:28 Result Notes Documentation Provider Name and Address Organization Details Recorded Time Xr, Abdomen, 1 View : [facility] [address] [place] [address] Name: BILL TESFYAE Exam Date: 06/03/2022 : 1985 Age 36 Gender: M Physician: MARLON UP Facility: [facility] Facility HSV: Outpatient Exam: ABD KUB [...] Thank you for referring BILL TESFAYE to [facility]. Legally authenticated by POPE DANN Ramos 2022-06-03 16:21:46 CC'ed Logic: Ordering Provider: ANNEL MASON Attending Provider: ANNEL MASON Referring Provider: ANNEL MASON Admitting Provider: ANNEL Up NP [address] [place], [address], [facility] & [place] 06/04/2022 16:25:11 Xr, Chest, 2 View : [place] [address] Name: BILL TESFAYE Exam Date: 09/25/2022 : 1985 Age 36 Gender: M Physician: AQUILES VILLANUEVA Facility: [facility] Facility HSV: Outpatient Exam: CHEST 2 [...] Thank you for referring BILL TESFAYE to [facility]. Legally authenticated by RAMY CROFT 2022-09-25 13:16:32 CC'ed Logic: Ordering Provider: NOLA KWAN Attending Provider: NOLA KWAN Referring Provider: NOLA KWAN Admitting Provider: NOLA Villanueva MD [address] [place], [address], [facility] - [facility] & [place] 09/25/2022 13:47:39 Ct, Chest, W/o Contrast : [place] [id number] Name: BILL TESFAYE Exam Date: 10/20/2022 : 1985 Age 36 Gender: M Physician: AQUILES VILLANUEVA Facility: [facility] Facility HSV: Outpatient Exam: CT CHEST [...] Thank you for referring BILL TESFAYE to [facility]. Legally authenticated by POPE DANN Ramos 2022-10-20 15:28:54 CC'ed Logic: Ordering Provider: NOLA KWAN Attending Provider: NOLA KWAN Admitting Provider: NOLA Villanueva MD [address], [place], [address], [place] [facility] [place] & [place] 10/21/2022 10:01:28 Problems Name Problem SNOMED Code Status Onset Date Resolution Date Notes Provider Name and Address Organization Details Recorded Time Gastro-esopha geal reflux disease with esophagitis 440005037 Active 2022 Praveen Cifuentes PA-C [address], [place], [address] , [place] [facility] [place] & [place] 3 12:21:58 Nnjpl-3-eokve rypsin deficiency 08796833 Active 2022 Aquiles Villanueva MD [address] [facility], [place], [address] , [place] [facility] [place] [facility] [place] 3 13:41:54 Pulmonary emphysema 73502994 Active 2022 Aquiles Villanueva MD [address] [facility], [place], [address] , [place] [facility] [place] & [place] 3 13:41:59 Liver function tests outside reference range 547308695 Active 2022 Aquiles Villanueva MD [address] [facility], [place], [address] , [place] - [facility] & [place] 3 13:42:21 Constipation 04902219 Active 2022 Praveen Cifuentes PA-C [address] [facility], [place], [address] , [place] [facility] & [place] 3 14:27:27 Heartburn 19541021 Active 2022 Praveen Cifuentes PA-C [address] [facility], [place], [address] , [place] [facility] & [place] 3 14:27:27 Dysphagia 88008777 Active 2022 Praveen Cifuentes PA-C [address] [facility], [place], [address] , [place] [facility] & [place] 3 14:27:27 Liver enzymes level above reference range 197481369 Active 2022 Praveen Cifuentes PA-C [address] [facility], [place], [address] , [place] [facility] & [place] 3 14:27:28 Non-alcoholic fatty liver 369678359 Active [address], [place], [address] , [facility] & [place] 3 14:27:28 Acid reflux 258496019 Active 2022 Praveen Cifuentes PA-C [address] [facility], [place], [address] , [facility] & [place] 3 14:32:03 Problem Notes None recorded. Procedures Surgical History Date Name Laterality Status Provider Name and Address Organization Details Recorded Time 2022 esophagogastroduodenoscopy completed Eloise [facility] & [place] 3 13:11:51 Imaging Results None recorded. Procedure Notes None recorded. Medical Equipment None Reported. Allergies Allergen ID Allergen Name Allergen Category Reaction Reaction Severity Criticality Documentation Date Start Date Code Code System Note Provider Name and Address Organization Details Recorded Time 33831 Product containin g penicilli n (product) medicatio n Not available Not available Not available 06/03/2022 60390 8001 SNOMED Cecille Tyler [facility] & [place] 2 14:05:37 52959 tizanidin e medicatio n Not available Not available Not available 06/03/2022 20517 RxNorm Cecille Tyler [facility] & [place] 2 14:05:43 Medications Name Sig [...] blood by Pulse oximetry Heart rate Systolic And Diastolic Provider Name and Address Organization Details Last Updated DateTime 3 429334. 3 g 29.4 kg/m2 185.42 cm 97.7 [degF] 98 % 98 % 79 /min 132/80 mm[Hg] Eloise [facility] 3 13:13:39 Date Recorded Body height Body mass index (BMI) Body weight Body temperature Oxygen saturation Oxygen saturation in Arterial blood by Pulse oximetry Heart rate Systolic And Diastolic Provider Name and Address Organization Details Last Updated DateTime 3 185.42 cm 28.9 kg/m2 39354.7 3 g 97.7 [degF] 97 % 97 % 99 /min 127/83 mm[Hg] Eloise [facility] & [place] 3 13:59:45 Date Recorded Body height Body mass index (BMI) Body weight Body temperature Heart rate Oxygen saturation Oxygen saturation in Arterial blood by Pulse oximetry Systolic And Diastolic Provider Name and Address Organization Details Last Updated DateTime 3 185.42 cm 26 kg/m2 16981.4 2 g 98.1 [degF] 83 /min 99 % 99 % 121/73 mm[Hg] Regla POPE [facility] & [place] 3 13:47:20 Date Recorded Body weight Heart rate Systolic And Diastolic Provider Name and Address Organization Details Last Updated DateTime 06/03/2022 463632.43 g 69 /min 161/93 mm[Hg] Cecille [facility] & [place] 06/03/2022 14:06:02 Date Recorded Body weight Heart rate Systolic And Diastolic Provider Name and Address Organization Details Last Updated DateTime 07/01/2022 582434.65 g 82 /min 147/100 mm[Hg] Cecille Tyler [facility] & [place] 07/01/2022 10:23:53 Social History Question Answer Notes LastModified by [employer] Details LastModified Time Tobacco Smoking Status Never [facility]oker [facility] [place] 09/25/2022 13:11:32 What Is Your Level Of Caffeine Consumption? Heavy [email or web address] Information not available 03/16/2023 Sex: Male Functional Status Question Answer Note LastModified by [employer] Details LastModified Time Do you use any illicit or recreational drugs? No [email or web address] Information not available 09/25/2022 What is your level of alcohol consumption? None [email or web address] Information not available 09/25/2022 Mental Status None recorded. Family History Relationship Description Onset Age of this Age Resolved Age Notes LastModified by Organization Details LastModified Time Father No current problems or disability [email or web address] Not available 09/25 13:11:06 Mother No current problems or disability Not available 09/25 13:11:06 Medical History No medical history recorded. Past Encounters Encounter ID Performer Location Encounter Start Date Encounter Closed Date Diagnosis/Indication Diagnosis SNOMED-CT Code Diagnosis ICD10 Code Diagnosis Note [id number] Marlon Up NP [facility] [address] [address] 06/03/2022 13:41:49 06/03/2022 15:20:05 Liver enzymes level above reference range 816471683 R74.01 - labs and liver ultrasound ordered today- follow-up in 4 weeks to discuss Constipation 27761571 K5 9.00 - Discussed Miralax bowel purge, then take once daily or as needed- abdominal xray ordered- consider Linzess if no improvemen t Heartburn 72558113 R12 - increase omeprazole to twice daily- may continue famotidine as needed- EGD scheduled- Also see scanned GERD-HRQL Questionna alyx Dysphagia 09601170 R13.1 0 - feels like food gets stuck several times per month- EGD scheduled [id number] Marlon Up NP [facility] [address] [address] 07/01/2022 10:17:23 07/01/2022 11:16:42 Constipation 23701491 K59.00 - continue MiraLax- increase water and fiber in diet increase activity level Heartburn 89698486 R12 - increase omeprazole to twice daily- may continue famotidine as needed- EGD scheduled- Also see scanned GERD-HRQL Questionna alyx Dysphagia 59552286 R13.1 0 - feels like food gets stuck several times per month- EGD scheduled Non-alcoho lic fatty liver 181847177 K76.0 - F0, S3- Immune to Hep A and Hep B- Avoid NSAIDs and alcohol.- Do not take over 2 g of acetaminop hen daily.- Discussed weight loss and healthy diet. 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 Rma40Jdk)- detected heterozygo us Alpha-1-an titrypsin deficiency 44311139 E88.01 - 1096 g>a= Z allele detected- phenotype MZ- serum result 71- discussed with patient explained genetic testing need for biological children- referral placed to pulmonolog y. Denies respirator y symptoms at this time- was also found to have elevated HARMEET (see patient case 06/09/2022 for rheumatolo gy referral) Liver enzy mes level above reference range 375076821 R74.01 - MELD 3.0- 6- actin smooth muscle antibody was also mildly elevated- discussed with patient possibilit y of autoimmune hepatitis is well- liver biopsy scheduled [id number] Aquiles Villanueva MD [place] [id number] [facility],[address] [place] [address] 09/25/2022 13:00:26 09/25/2022 13:51:51 Lmwlp-9-hoxwpypxmkz deficiency 45910048 E88.01 Patient had alpha-1 antitrypsi n phenotype [...] Liver func tion tests outside reference range 435609500 R94.5 Patient to continue follow-up with the GI service and their recommenda tions. 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 [id number] Praveen Cifuentes PA-C [facility] [address] [facility] [address] [place] [address] 03/16/2023 13:42:31 03/16/2023 14:28:43 Constipation 15672837 K59.00 Dysphagia 79627412 R13.1 0 Non-alcoho lic fatty liver 212282964 K76.0 Carrier of hemochromatosis 5023993285 9103 Z14.8 Alpha-1-an titrypsin deficiency 91151096 E88.01 Liver enzy mes level above reference range 773025720 R74.01 Gastro-eso phageal reflux disease with esophagitis 573615963 K21.00 Health Concerns Section Related Observation LastModified by Organization Detai ls LastModified Time None Recorded Concern Status LastModified by Organization Details LastModified Time None Recorded Advance Directives Directive None Recorded Payers Insurance Date Sequence Insurance Name Policy Number Policy Rojas Covered Member ID Rojas Member ID Guarantor Name 05/04/[address] [facility] (MEDICAID HMO) Bill Tesfaye [id number] Bill Tesfaye Notes Date Note Type Note Provider Name and Address Organization Details Recorded Time 06/03/2022 text/html ROS as noted in the HPI Patient is a 36-year-old male referred to us from [facility] primary care, Ly Castellano APRN related to [...] Denies nausea, vomiting or hematemesis. Marlon Up, PLASTICS ENGINEER [address] [facility], [place], [address], [place] [facility] [place] & [place] 06/03/2022 15:27:39 07/01/2022 text/html ROS as noted in the HPI (06/03/22) Patient is a 36-year-old male referred to us from [facility] primary care, Ly Castellano APRN related to [...] hematochezia. Marlon Up NP [address], [place], [address], [facility] & [place] 07/01/2022 15:44:12 09/25/2022 text/html Patient [...] referred for further evaluation. Aquiles Villanueva MD [address], [place], [address], [facility] - [facility] & [place] 09/25/2022 13:46:22 10/30/2022 text/html [...] his weight or appetite. Aquiles Villanueva MD [address], [place], [address], [facility] & [place] 10/30/2022 14:41:36 03/16/2023 text/html ROS as noted in the HPI (06/03/22) Patient is a 36-year-old male referred to us from [facility] primary care, Ly Castellano APRN related to [...] with occasional liquid stools. Praveen Cifuentes PA-C [address], [place], [address], [facility] & [place] 03/16/2023 23:23:59
--- OUTSIDE RECORDS SUMMARY | 2025-03-03 07:45 | XMS_ITS | Clinical Summary ---
[facility] Address [address] [place] [address] Care Team Providers Care Supply Chain Planner Name Role Phone Ly Morales EARLY CHILDHOOD EDUCATION COORDINATOR Primary Care Provider [phone] Social History Tobacco Use Types Packs/Day Years Used Date Smoking Tobacco: Never Assessed Abuse Screen Answer Date Recorded Unsafe at Home or Work/School Not on file Feels Threatened by Someone? Not on file 06/2023 Does Anyone Keep You from Co ntacting Others or Doint Things Outside the Home? Not on file 05/20/2023 Physical Sign of Abuse Present Not on file 1 Housing Stability Answer Date Recorded Current Living Arrangements Not on file 05/10 Potentially Unsafe Housing Conditions Not on ida e 05/20/2023 Family and Community Support Answer Raciel e Recorded Help with Day-to-Day Activities Not on file 05/20/2023 Lonely or Isolated Not on file 05/20/2023 Employment Answer Date Recorded Do you want help finding or keeping work or a eulalio b? Not on file 05/20/2023 Disabilities Answer Date Recorded Concentrating, Remembering, or Making Decisions Difficulty Not on file 05/20/2023 Doing Errands Independently Difficulty Not on fi le 05/20/2023 Education Answer Date Recorded Help with school or training? Not on file Preferred Language Not on file 05/20/2023 Sex and Gender Information Value Date Recorded Sex Assigned at Not on file Legal Sex Male 11:35 AM EDT Gender Identity Not on file Sexual Orientation Not on file Plan of Treatment Health Maintenance Due Date Last Done Comments ANNUAL PHYSICAL 1987 HEPATITIS C SCREENING 1987 COVID-19 Vaccine (2023-2 5 season) 2024 10/02/2022, 05/09/2021, 04/10/2021 INFLUENZA VACCINE 05/10/2025 05/19/2023, , 05/22/2022, Additional history exists TDAP/TD VACCINES (3 - Td or Tdap) 10/18/2031 022, 01/13/2005 Pneumococcal Vaccine 0-49 Completed 10/16/2022, 04/2010 Insurance [facility] Care Teams Supply Chain Planner Relationship Specialty Start Date End Date Ly Morales APRN [address] [place] [id number] PCP - General Family Medicine 11/03/23
--- OUTSIDE RECORDS SUMMARY | 2025-03-03 07:45 | XMS_ITS | Encounter Summary ---
Author Organization Healthcare Address [address] [place] [address] Care Team Providers Care Combine Driver Name Role Phone Khadarluz elenaInocencia APRN, BETO Unavailable [phone] Ly Morales APRN Primary Care Provider [phone] Encounter Details Date Type Department Care Team [...] Description 03/13/2025 9:00 AM EDT [facility] Visit [facility] [address], [address] [place] [address] Helene Pal APRN, DNP [address] [place] [address] documented as of this encounter Visit Diagnoses Not on filedocumented in this encounter Additional Health Concerns Assessment Noted Time A fall risk assessment has been complete d for the patient 01/04/2025 1:51 PM EDT A Body Mass Index follow-up plan has been documented for the patient 11/29/2024 11:25 AM EDT documented as of this encounter Care Teams Combine Driver Relationship Specialty Start Date End Date Ly Morales APRN [address] [place] [id number] PCP - General 12/29/22 Inocencia Hastings APRN, DNP [address] [facility] [address] [place] [address] Nurse Practitioner Neurosurgery 07/11/22 documented as of this encounter
--- OUTSIDE RECORDS SUMMARY | 2025-03-03 07:45 | XMS_ITS | Data Portability ---
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 Referral ENT surgery referral 2023 024 [facility], [address] [place] [address] [address], [place], [address], 4 09:34:58 Procedures None recorded. Surgeries None recorded. Imaging None recorded. Medication Orders cefdinir 300 mg capsule 2023 024 [facility], [address] [place] [address] [address] [place] [place], [id number], 4 14:04:27 Debrox 6.5 % ear drops [address] [facility], [address] [place] [address] [address] [place], [place], [id number], 13:50:26 Patient TargetsNo targets recorded. Patient InstructionsNo instructions recorded. Reason for Referral ENT Surgery Referral for Imp acted cerumen of bilateral ears Referring Physician: Alejandra Castellano, Family Medicine, Encounter Date: 03/28/2024 Results Created Date Observation Date Name Description Value Unit Range Abnormal Flag Note LastModifiedBy Organization Detail LastModifiedTime 06/21/2006/21/2024 josé miguel metry No observ ation record ed. [facility] (Radiology) [address] [place] [address] [place], [address], 06/21/2024 16:48:12 06/22/20 24 06/22/2024 XR, foot, 3 or more view No observ ation record ed. [address], [place], [address], 06/23/2024 09:24:21 06/22/20 24 06/22/2024 XR, foot, 3 or more view No observ ation record ed. [address], [place], [address], 06/23/2024 09:24:06 06/22/20 24 06/22/2024 CT, angio gram, abdom en, w/ contr ast No observ ation record ed. [address], [place], [address], 06/23/2024 09:22:53 06/23/2006/22/2024 US, doppl er echoc ardio gram, w/ color flow No observ ation record ed. [address], [place], [address], 06/23/2024 09:20:28 06/23/20 24 06/23/2024 XR, chest No observ ation record ed. [facility] [address], [place], [place], [address], 06/23/2024 11:42:07 06/27/20 24 06/22/2024 US, doppl er, venou s No observ ation record ed. [facility] [address], [place], [place], [address], 06/30/2024 09:49:20 06/27/20 24 06/22/2024 arter ial study , lower extre mity, compl ete No observ ation record ed. [facility] [address], [place], [place], [address], 06/30/2024 09:45:06 12/10/19 25 2024 XR, ankle , 3 or more view No observ ation record ed. [facility] [address], [place], [place], [address], 2024 10:54:00 12/10/19 25 2024 XR, foot, 3 or more view No observ ation record ed. [facility] [address], [place], [place], [address], 2024 14:33:54 02/10/20 25 02/07/2025 US, liver No observ ation record ed. [facility] [address], [place], [place], [address], 02/13/2025 08:26:35 Result Notes None recorded. Problems Name Problem SNOMED Code Status Onset Date Resolution Date Notes Provider Name and Address Organization Details Recorded Time Suspecte d COVID-19 878728965 Completed 11/26/2020 Removal Reason: Problem added by user [email or web address] from the COVID-19 watch flag Angelika [place] - [facility] 10:15:17 Suspecte d COVID-19 343102879 Completed 03/25/2021 Removal Reason: Problem marked historic al by user [email or web address] from the COVID-19 watch flag Angelika [place] null, [place] - [facility] 1 10:15:17 Hyperten sive disorder 08102952 Active 2015 Alejandra Castellano, PLATFORM SUPERVISOR [address], [place], [address], [place] - [facility] 2 09:50:17 Chronic back pain 073607353 Active 2015 Alejandra Castellano, PLATFORM SUPERVISOR [address], [place], [address], [place] [facility] 2 09:50:08 Acid reflux 684183805 Active 2015 Alejandra Castellano, PLATFORM SUPERVISOR [address], [place], [address], [place] [facility] 2 09:50:13 Ingrowin g nail 538055909 Completed 201510/07/2016 Mir Javier MD [address], [place], [address], [place] [facility] 7 19:56:38 Cellulit is 947080595 Completed 201510/07/2016 Candelaria Willis null, [place] - [facility] 8 14:49:31 Impacted cerumen 56514416 Completed 201610/29/2016 Candelaria [place], [place] - [facility] 7 08:30:44 Urinary symptoms 004675959 Completed 201603/09/2018 Candelaria [place] - [facility] 8 14:49:36 Cellulit is 316580450 Completed 201603/09/2018 Candelaria [place] - [facility] 8 14:49:31 Infectio n of toenail 78047642203 130697 Completed 201603/09/2018 Candelaria [place] - [facility] 8 14:49:39 Chest discomfo rt 368493132 Completed 201703/09/2018 Candelaria [place] - [facility] 8 14:49:44 Anxiety 66429433 Active 2017 Alejandra Castellano APRN [address], [place], [address], [place] [facility] 2 09:50:10 Lumbosac ral radiculo john 9811785 Active 2017 Alejandra Castellano APRN [address], [place], [address], [place] [facility] 2 09:50:23 Infectio n of toe 267587571 Completed 201812/13/2020 Mir Javier MD [address], [place], [address], [place] - [facility] 1 15:25:15 Injury of muscle of right foot 97303399734 108968 Completed 201912/13/2020 Mir Javier MD [address], [place], [address], [place] [facility] 1 15:25:09 Superfic ial puncture wound 316674755 Completed 201912/13/2020 Mir Javier MD [address], [place], [address], [place] [facility] 1 15:25:26 Acute pharyngi tis 729627120 Completed 202010/17/2021 Mir Javier MD [address], [place], [address], [place] [facility] 2 14:23:13 Family history of diabetes mellitus 524100624 Active 2021 Mir Javier MD [address], [place], [address], [place] [facility] 2 14:23:53 Dizzines s 618801473 Active 2021 Mir Javier MD [address], [place], [address], [place] [facility] 2 13:12:43 Alpha-1- antitryp sin deficien cy 93793056 Active 2022 Alejandra Castellano APRN [address], [place], [address], [place] - [facility] 4 09:16:00 Depressi ve disorder 02648540 Active 2022 Alejandra Castellano APRN [address], [place], [address], [place] - [facility] 4 09:15:45 Gastroes ophageal reflux disease without esophagi tis 990138155 Active 2023 Alejandra Castellano, PLATFORM SUPERVISOR [address], [place], [address], [place] - [facility] 4 09:15:43 Problem Notes None recorded. Procedures Surgical History Date Name Laterality Status Provider Name and Address Organization Details Recorded Time 07/14/20 24 Medication Reconcilliation completed Maritza Loza [place] - [facility] 07/14/2024 15:39:36 03/28/20 24 Cerumen Removal completed Clembrittany nohemiliusaPATRICIA [address], [place], [address], [place] - [facility] 03/28/2024 16:37:10 02/28/20 23 Dexcom Placement completed Clemlisbethdarien Leónnohemiluisa PLATFORM SUPERVISOR [address], [place], [address], [place] - [facility] 02/27/2023 17:04:30 02/28/20 23 Medication Reconcilliation completed Jenni Drake [place] - [facility] 02/27/2023 16:18:27 07/12/20 20 Systolic B/P less than 130 mm Hg completed [facility] [place] - [facility] 07/12/2020 13:30:58 07/12/20 20 Diastolic B/P 80-89 mm Hg completed [place] - [facility] 07/12/2020 13:31:00 03/21/20 20 Systolic B/P less than 130 mm Hg completed [place] - [facility] 03/21/2020 08:25:39 03/21/20 20 Diastolic B/P 80-89 mm Hg completed [facility] [place] - [facility] 03/21/2020 08:25:41 12/16/19 20 Systolic B/P less than 130 mm Hg completed [facility] - [facility] 12/16/2019 14:03:23 12/16/19 20 Diastolic B/P 80-89 mm Hg completed [facility] 12/16/2019 14:03:26 12/16/19 20 Medication Reconcilliation completed [facility] 12/16/2019 14:02:06 09/29/19 20 Diastolic B/P greater than or equal to 90 mm Hg completed [facility] 09/29/2019 09:09:16 09/29/19 20 Systolic B/P 130-139 mm Hg completed [facility] 09/29/2019 09:08:51 08/25/19 20 Diastolic B/P 80-89 mm Hg completed [facility] 08/25/2019 08:49:38 08/25/19 20 Systolic B/P greater than or equal to 140 mm Hg completed [facility] 08/25/2019 08:49:36 08/11/19 18 Back Surgery completed Savanna Powell [facility] 09/30/2018 14:31:35 07/01/20 17 Toenail Removal/Excision- permanent, partial or complete completed [facility] 07/01/2017 09:40:06 06/18/20 16 Toenail Removal/Excision- permanent, partial or complete completed Mir Javier MD [address] [place] [address], [address] - [facility] 06/21/2016 16:04:54 Appendectomy completed Candelaria Willis [place] - [facility] 06/10/2016 16:31:57 Tonsillectomy completed [facility] 06/10/2016 16:32:07 Knee arthroscopy/surger y completed Savanna Powell [facility] 09/30/2018 14:30:19 Imaging Results None recorded. Procedure Notes None recorded. Medical Equipment None Reported. Allergies Allergen ID Allergen Name Allergen Category Reaction Reaction Severity Criticality Documentation Date Start Date Code Code System Note Provider Name and Address Organization Details Recorded Time 146416 tizanidin e medicatio n Not available Not available Not available 08/22/2021 13747 RxNorm confu maria r falk [place] - [facility] 2 10:34:24 03149 Product containin g penicilli n (product) medicatio n Not available Not available Not available 05/16/20162014 48086 8001 SNOMED React ion: hives short ness of breat h; Not Available [facility] 6 10:39:07 Medications Name Sig Start Date [...] active Not Available Not Available Not Avai dominik Cristina-D 12 Hour 60 mg-120 mg tablet,ex [...] Status: Prescrib ed on: 06/25/20 11:42AM; User: [email or web address] ;EstTonio Oliver on: 08/24/19 16;Pharm acyVerikevin ied: 06/25/20 11:42AM Not Available Not Available [...] BY MOUTH TWICE DAILY MAY CAUSE DROWSINE SS 02/27 completed Not [...] Status: Recorded on: 12/06/19 16 8:29AM;U ser: joyce EstTonio Completzoe on: 03/15/20 16;Indic ation: back - (-5) Not Available Not Available Not Available Cipro one bid 05/18 completed cipro 500 mg.;Marty rded Status: Recorded on: 04/15/20 15 2:15PM;D iscontin ued Status: Disconti nued on: 05/18/20 15 4:08PM;U ser: joyce Oliver on: 04/30/20 15;Indic ation: stone - (-5) Not Available Not Available Not Available Prednison e (Sam) as directed 08/14 completed predniso ne dospkg 5 mg.;Marty rded Status: Recorded on: 07/22/20 15 7:32PM;D iscontin ued Status: Disconti nued on: 08/14/19 16 12:19PM; User: joyce Oliver on: 07/28/20 15;Indic ation: back - (-5) [...] Updated DateTime 5 185.42 cm 35.9 kg/m2 386731. 12 g 106 /min 96 % 96 % 18 /min 97.9 [degF] 114/76 mm[Hg] Jenni Bishops [place] - [facility] 5 10:19:00 Date Recorded Body height Respiratory rate Body mass index (BMI) Body weight Oxygen saturation Oxygen saturation in Arterial blood by Pulse oximetry Heart rate Body temperature Systolic And Diastolic Provider Name and Address Organization Details Last Updated DateTime 4 185.42 cm 18 /min 34.3 kg/m2 255042. 02 g 96 % 96 % 86 /min 98 [degF] 120/78 mm[Hg] Jenni Darios [place] - [facility] 4 15:03:31 Date Recorded Body height Provider Name an d Address Organization Details Last Updated DateTime 04/15/2024 185.42 cm Maritza Loza [place] - [facility] 0 04/15/2024 14:29:46 Date Recorded Body mass index (BMI) Body weight Body temperature Heart rate Oxygen saturation Oxygen saturation in Arterial blood by Pulse oximetry Respiratory rate Pain severity - 0-10 verbal numeric rating [Score] - Reported Systolic And Diastolic Provider Name and Address Organization Details Last Updated DateTime 4 34.7 kg/m2 310008. 19 g 97.5 [degF] 74 /min 98 % 98 % 18 /min 6 136/86 mm[Hg] Maritza Loza [facility] 4 13:48:14 Date Recorded Body height Provider Name an d Address Organization Details Last Updated DateTime 06/21/2024 185.42 cm Jenni Bishopcalos [facility] 06/21 13:36:19 Date Recorded Body height Body mass index (BMI) Body weight Body temperature Heart rate Oxygen saturation Oxygen saturation in Arterial blood by Pulse oximetry Respiratory rate Pain severity - 0-10 verbal numeric rating [Score] - Reported Systolic And Diastolic Provider Name and Address Organization Details Last Updated DateTime 4 185.42 cm 35.2 kg/m2 776157. 16 g 98.3 [degF] 87 /min 98 % 98 % 18 /min 0 116/80 mm[Hg] Maritza Kimler [facility] 4 15:40:35 Social History Question Answer Notes LastModified by Organizat ion Details LastModified Time Tobacco Smoking Status [facility] 16:31:45 Able To Swim? Yes Information not available 05/22/2022 Do You Have An Advance Directive? No [email or web address] Information not available 02/17/2017 Do You Wear A Helmet When Biking? No Information not available 05/22/2022 Are You Blind Or Do You Have Difficulty Seeing? No Information not available 05/22/2022 Is Blood Transfusion Acceptable In An Emergency? Yes Information not available 05/22/2022 What Is Your Level Of Caffeine Consumption? Moderate [email or web address] Information not available 02/17/2017 How Much Tobacco Do You Chew? None Information not available 05/22/2022 In The 14 Days Before Symptom Onset, Have You Had Close Contact With A Laboratory-confir [facility] COVID-19 While That Case Was Ill? No [...] Do You Have Serious Difficulty Hearing? No Information not available 02/17/2017 What Type Of Diet Are You Following? REGULAR Information not available 05/22/2022 Which Illicit Or Recreational Drugs Have You Used? No [email or web address] Information not available 02/17/2017 Have You Processed [...] Or The Highest Degree You Have Received? [id number] Information not available 05/22/2022 Swimming/diving Yes Informati [...] Do You Have A Medical Power Of Client Success Specialist? No Information not available 05/22/2022 What Was The Date Of Your Most Recent Tobacco Screening? 10/14/2024 Information not available 10/14/2024 How Many Children Do You Have? 2 Information not available 05/22/2022 Do You Use Protection During Sex? No [email or web address] Information not available 02/17/2017 Do You Use Protection Against STDs? No Information not available 05/22/2022 What Is Your Relationship Status? Information not available 02/17/2017 Seat Belts Used [...] 05/22/2022 Do You Use Sunscreen Routinely? No Information not available 02/17/2017 Has Tobacco Cessation [...] used smokeless tobacco? Never used smokeless tobacco [email or web address] Information not available 09/29/2019 Are you currently employed? Yes [email or web address] Information not available 02/17/2017 Do you have transportation difficulties? No Information not available 05/22/2022 Are you able to care for yourself independently? Yes [email or web address] Information not available 02/17/2017 Do you have difficulty dressing, bathing, grooming, or toileting? No Information not available 05/22/2022 Do you or have you ever used e-cigarettes or vape? Never used electronic cigarettes Information not available 09/29/2019 What is your exercise level? Occasional [email or web address] Information not available 02/17/2017 Do you use any illicit or recreational drugs? No Information not available 05/22/2022 Do you or have you ever used any other forms of tobacco or nicotine? No Information not available 05/22/2022 What is your level of alcohol consumption? None [email or web address] Information not available 02/17/2017 Are you able to walk? [email or web address] Information not available 05/22/2022 Do you have difficulty doing errands alone? 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 [id number] Information not available 05/22/2022 Do you have difficulty concentrating, remembering or making decisions? No Information no t available 05/22/2022 Family History Relationship Description Onset Age of this Age Resolved Age Notes LastModified by Organization Details LastModified Time Paternal Grandfather Malignant tumor of pancreas Not available 04/27 11:12:55 Mother Degeneration of lumbar intervertebr al disc [email or web address] Not available 04/27 11:13:15 Maternal Grandfather Carcinoma of prostate [email or web address] Not available 04/27 11:13:43 Medical History Condition Response Degenerative Disc Disease Y Acid Reflux (GERD) Y Hypertension Y Immunizations Vaccine Type Date Status Note Provider Nam e and Address Organization Details Recorded Time Hep A, ped/adol, 2 dose 3 completed Alejandra Castellano APRN [address], [address], [place] - [facility] 10/16/2022 10:58:00 Hep B, adult 3 completed Alejandra Castellano APRN [address], [place], [address], [facility] - [facility] 10/16/2022 10:58:00 Pneumococcal conjugate PCV20, polysaccharide [id number] conjugate, adjuvant, PF 3 completed Alejandra Castellano APRN [address], [place], [address], [facility] - [facility] 10/16/2022 10:58:00 Influenza, split virus, quadrivalent, preservative 3 completed Maritza Loza [facility] 05/19/2023 15:11:30 Influenza, split virus, trivalent, preservative 4 completed Maritza Loza null[place] - [facility] 04/15/2024 14:32:22 Hep A, adult 8 completed Not Available [facility] 08/27[facility]2019 03:55:36 Hep B, adolescent or pediatric 1 completed Jenni Stears null[place] [facility] 06/10/2022 17:40:30 Tdap 2 completed Jenni [place] [facility] 06/10/2022 17:40:30 Influenza, split virus, quadrivalent, preservative 5 completed Jenni [place] [facility] 06/10/2022 17:40:30 Influenza, split virus, quadrivalent, preservative 7 completed Jenni [place] [facility] 06/10/2022 17:40:30 COVID-19, mRNA, LNP-S, PF, 100 mcg/0.5mL dose or 50 mcg/0.25mL dose 1 completed Jenni Stears [place] [facility] 06/10/2022 17:40:30 COVID-19, mRNA, LNP-S, PF, 100 mcg/0.5mL dose or 50 mcg/0.25mL dose 1 completed Jenni Ste[place] [facility] 06/10/2022 17:40:30 Influenza, split virus, quadrivalent, PF 6 completed Jenni [place] [facility] 06/10/2022 17:40:30 Influenza, split virus, quadrivalent, preservative 9 completed Jenni [place] [facility] 06/10/2022 17:40:31 Influenza, split virus, quadrivalent, preservative 2 completed Jenni [place] [facility] 06/10/2022 17:40:31 Influenza, split virus, quadrivalent, preservative 0 completed Jenni [place] [facility] 06/10/2022 17:40:31 pneumococcal polysaccharide PPV23 0 completed Jenni Stears null, [place] - [facility] 06/10/2022 17:40:31 Influenza, split virus, quadrivalent, preservative 8 completed Jenni Darios null, [facility] 06/10/2022 17:40:31 Td (adult), 2 Lf tetanus toxoid, preservative free, adsorbed 5 completed Jenni Bishops null, [facility] 06/10/2022 17:40:31 Influenza, split virus, trivalent, PF 0 completed Maritza [place] [facility] 11/17/2022 14:44:56 COVID-19, mRNA, LNP-S, bivalent, PF, 50 mcg/0.5 mL or 25mcg/0.25 mL dose 3 completed Jenni Bishops null, [facility] 03/27/2023 09:20:19 Past Encounters Encounter ID Performer Location Encounter Start Date Encounter Closed Date Diagnosis/Indication Diagnosis SNOMED-CT Code Diagnosis ICD10 Code Diagnosis Note [id number] Mir Javier MD [address] [place] [address] 06/10/2016 15:57:26 06/10/2016 16:47:05 Influenza vaccine needed 6200582568 106 Z23 Cellulitis 071254952 L03 .90 Ingrowing nail 103423662 L60.0 Chronic back pain 093266 002 M54.10 Hypertensive disorder 38 026939 I10 [id number] Mir Javier MD [address] [place] [address] 06/18/2016 14:21:53 06/23/2016 14:29:10 Ingrowing nail 934322280 L60.0 [id number] Mir Javier MD [address] [place] [address] 10/07/2016 09:09:48 10/07/2016 10:57:25 Hypertensive disorder 24124553 I10 Chronic back pain 931830 002 M54.10 Renewal of prescription 818377168 Z76.0 Impacted cerumen 8054885 6 H61.23 Acid reflux 116352558 K2 1.9 [id number] Mir Javier MD [address] [place] [address] 10/29/2016 08:20:51 10/29/2016 16:56:10 Hypertensive disorder 24970353 I10 Chronic back pain 350645 002 M54.10 Hyperlipid emia screening 038821518 Z13.068 [id number] Mir Javier MD [address] [place] [address] 12/04/2016 08:09:34 12/04/2016 09:15:43 Hypertensive disorder 06935816 I10 Chronic back pain 655048 002 M54.10 Renewal of prescription 632089242 Z76.0 Body mass index 25-29 - overweight 261946077 Z68.29 Acid reflux 163599626 K2 1.9 [id number] Mir Javier MD [address] [place] [address] 01/01/2017 08:14:47 01/02/2017 08:05:00 Acute urinary tract infection 720054800 N39.0 Exposure t o sexually transmissible disorder 046654067 Z20.2 Acid reflux 959558258 K2 1.9 Chronic back pain 212691 002 M54.10 Hypertensive disorder 38 025243 I10 Urinary symptoms 3063376 08 R39.9 [id number] Mir Javier MD [address] [place] [address] 02/17/2017 08:17:07 02/17/2017 09:21:51 Chronic back pain 001815014 M54.10 Urinary symptoms 4752751 08 R39.9 Acid reflux 068769933 K2 1.9 Hypertensive disorder 38 776043 I10 [id number] Mir Javier MD [address] [place] [address] 04/02/2017 08:39:58 04/02/2017 09:36:20 Chronic back pain 267783343 M54.10 Hypertensive disorder 38 216093 I10 Body mass index 25-29 - overweight 241707917 Z68.29 Acid reflux 408849900 K2 1.9 [id number] Mir Javier MD [address] [place] [address] 06/03/2017 08:14:45 06/03/2017 09:41:29 Chronic back pain 841991546 M54.10 Ingrowing toenail 267472 009 L60.0 Administra tion of influenza vaccine 13429018 Z23 Hypertensive disorder 38 536337 I10 Cellulitis 516761585 L03 .90 [id number] Mir Javier MD [address] [address] 07/01/2017 08:16:48 07/01/2017 09:50:01 Ingrowing toenail 219928476 L60.0 Cellulitis 974412579 L03 .90 Chronic back pain 128432 002 M54.10 Hypertensive disorder 38 548094 I10 Infection of toenail 184 7284568 0881635 B99.9 [id number] Mir Javier MD [address] [place] [address] 09/30/2017 09:44:22 09/30/2017 10:28:09 Hypertensive disorder 18628425 I10 [id number] Mir Javier MD [address] [place] [address] 10/29/2017 15:00:38 10/29/2017 16:31:50 Hypertensive disorder 50939552 I10 Chronic back pain 342709 002 M54.10 Chest discomfort 3389957 09 R07.89 Anxiety 81635256 F41.9 [id number] Mir Javier MD [address] [address] 11/12/2017 14:39:54 11/12/2017 16:51:02 Anxiety 32272624 F41.9 Tachycardia 4945407 R00. 0 Chest discomfort 6948268 09 R07.89 Chronic back pain 928006 002 M54.10 Hypertensive disorder 38 869262 I10 [id number] Mir Javier MD [address] [place] [address] 12/30/2017 13:32:41 12/30/2017 15:28:58 Hypertensive disorder 11130224 I10 Body mass index 25-29 - overweight 550906882 Z68.29 Overweight 930607092 E66 .3 Chronic back pain 824184 002 M54.10 Anxiety 59311458 F41.9 [id number] Mir Javier MD [address] [place] [address] 03/09/2018 13:52:19 03/09/2018 14:54:41 Hypertensive disorder 09003362 I10 Chronic back pain 232002 002 M54.10 Acid reflux 869792147 K2 1.9 Anxiety 25704221 F41.9 [id number] Mir Javier MD [address] [place] [address] 04/21/2018 15:59:39 04/21/2018 18:12:02 Chronic back pain 960935031 M54.10 Body mass index 25-29 - overweight 246133855 Z68.29 Overweight 274293684 E66 .3 Anxiety 68103751 F41.9 Hypertensive disorder 38 262084 I10 [id number] Mir Javier MD [address] [place] [address] 05/13/2018 14:38:24 05/13/2018 17:45:49 Chronic back pain 347941123 M54.10 Administra tion of influenza vaccine 84440984 Z23 Hypertensive disorder 38 101485 I10 Acid reflux 993005409 K2 1.9 [id number] Mir Javier MD [address] [place] [address] 06/01/2018 13:28:54 06/01/2018 15:22:18 Chronic back pain 317994174 M54.10 Hypertensive disorder 38 032954 I10 Acid reflux 750719798 K2 1.9 Anxiety 61429091 F41.9 Radicular pain 94483921 M54.10 Pain in ri ght lower limb 716057722 M79.995 [id number] Mir Javier MD [address] [place] [address] 06/30/2018 09:21:42 06/30/2018 10:43:17 Chronic back pain 529635917 M54.10 Anxiety 72695910 F41.9 Acid reflux 654807231 K2 1.9 Hypertensive disorder 38 381249 I10 [id number] Mir Javier MD [address] [address] 07/27/2018 12:23:04 07/27/2018 15:31:41 Chronic back pain 013538899 M54.10 Lumbosacra l radiculopathy 2527881 M54.16 Hypertensive disorder 38 073696 I10 Active or passive immunization 137361220 Z23 Anxiety 38069737 F41.9 Acid reflux 218964498 K2 1.9 [id number] Shi Cavazos [address] [place] [address] 08/11/2018 13:19:24 08/11/2018 14:16:04 Chronic back pain 254114031 M54.16 [id number] Krystal Welsh [address] [place] [address] 09/30/2018 14:07:49 09/30/2018 15:22:54 Chronic back pain 038606775 G89.29 Pain of hip region 06252 002 M25.875 [id number] Mir Javier MD [address] [place] [address] 10/13/2018 14:44:45 10/13/2018 16:07:06 Hypertensive disorder 92378920 I10 Chronic back pain 249707 002 M54.10 Anxiety 58959675 F41.9 Acid reflux 550554927 K2 1.9 Renewal of prescription 433745736 Z76.0 Flank pain 645428765 R10 .9 Pain of to e of left foot 3992580900 75863 M79.675 Cellulitis of toe 506084 04 L03.032 Urinary tr act infectious disease 62048622 N39.0 Lumbosacra l radiculopathy 3444952 M54.16 [id number] Mir Javier MD [address] [address] 10/20/2018 14:48:32 10/20/2018 16:00:32 Pharyngitis 861119079 J02.9 Upper resp iratory infection 13971123 J06.9 Lumbosacra l radiculopathy 9925677 M54.16 Anxiety 38320079 F41.9 Acid reflux 444380892 K2 1.9 Chronic back pain 684018 002 M54.10 Hypertensive disorder 38 689558 I10 Cellulitis of toe 489948 04 L03.032 Lymphadenitis 15492540 I 88.9 [id number] Mir Javier MD [facility] [address] [place] [address] [place] [address] 11/02/2018 13:50:33 11/02/2018 15:09:01 Infection of toe 363595632 L08.9 Anxiety 65382601 F41.9 Acid reflux 100505037 K2 1.9 Chronic back pain 255156 002 M54.10 Hypertensive disorder 38 862808 I10 Urinary tr act infectious disease 68785955 N39.0 [id number] Mir Javier MD [facility] [address] [place] [address] [place] [address] 11/24/2018 14:01:40 11/24/2018 14:37:03 Infection of toe 331116551 L08.9 Lumbosacra l radiculopathy 3779214 M54.16 Anxiety 37187362 F41.9 Acid reflux 863278612 K2 1.9 Chronic back pain 172743 002 M54.10 Hypertensive disorder 38 288902 I10 Urinary tr act infectious disease 42024058 N39.0 [id number] Mir Javier MD [facility] [address] [place] [address] [place] [address] 01/13/2019 14:54:28 01/13/2019 16:11:42 Hypertensive disorder 42026876 I10 Chronic back pain 381594 002 M54.10 Lumbosacra l radiculopathy 8575179 M54.16 Acid reflux 864054791 K2 1.9 Anxiety 36723771 F41.9 Screening for cardiovascular system disease 901342727 Z13.6 Tachycardia 0237907 R00. 0 Infection of toe 4200992 06 L08.9 [id number] Mir Javier MD [facility] [address] [place], [place] [address] [address] 04/27/2019 10:48:44 04/27/2019 13:32:01 Lumbosacral radiculopathy 6260620 M54.16 Chronic back pain 881050 002 M54.10 Hypertensive disorder 38 124199 I10 Anxiety 11746891 F41.9 Body mass index 30+ - obesity 411855638 Z68.31 [id number] Mir Javire MD [address] [place] [address] 06/14/2019 14:17:53 06/14/2019 15:27:06 Chronic back pain 419618729 M54.10 Lumbosacra l radiculopathy 5605293 M54.16 Administra tion of influenza vaccine 77427722 Z23 Anxiety 51213501 F41.9 Renewal of prescription 103750450 Z76.0 Hypertensive disorder 38 167260 I10 [id number] Mir Javier MD [facility] [address] [place], [place] [address] [place] [address] [address] 08/25/2019 08:39:49 08/25/2019 10:05:14 Lumbosacral radiculopathy 7596946 M54.16 Anxiety 60607731 F41.9 Acid reflux 984549472 K2 1.9 Chronic back pain 508209 002 M54.10 Pain in right foot 46850 99667 37939 M79.875 [id number] Mir Javier MD [address] [place] [address] 09/29/2019 08:48:06 09/29/2019 11:33:12 Injury of muscle of right foot 6901713691 7070004 S96.901D Closed fra cture of fifth metatarsal bone 65816112 S92.351D Pain in right foot 82958 92178 66353 M79.671 Chronic back pain 266516 002 M54.10 Hypertensive disorder 38 329638 I10 Acid reflux 395585296 K2 1.9 Anxiety 36202747 F41.9 [id number] Mir Javier MD [facility] [address] [place] [address] 12/16/2019 13:36:55 12/16/2019 14:29:53 Low back pain 330552133 M54.5 newly acquired Aftercare 449299988 Z51. 89 Acid reflux 286705682 K2 1.9 Anxiety 49569935 F41.9 Chronic back pain 831851 002 M54.10 Hypertensive disorder 38 681884 I10 Injury of muscle of right foot 5800291519 9295470 S96.901D [id number] Mir Javier MD [place] [address] [place] [address] 03/21/2020 08:05:35 03/21/2020 09:02:56 Anxiety 51547545 F41.9 Hypertensive disorder 38 117053 I10 Acid reflux 441404844 K2 1.9 Chronic back pain 052316 002 M54.10 Puncture w ound of hand 684131640 S61.431A 2nd digit of right hand [id number] Mir Javier MD [place] [address] [place] [address] 07/12/2020 13:13:47 07/12/2020 14:17:40 General examination of patient 348389994 Z00.00 Hyperlipid emia screening 210033341 Z13.220 Screening for malignant neoplasm of prostate 039782850 Z12.5 Endocrine/ metabolic screening 398683970 Z13.228 Exercises education, guidance, and counseling 432704946 Z71.82 Dietary ma nagement surveillance 353668860 Z71.3 Administra tion of influenza vaccine 54453001 Z23 Acid reflux 113684735 K2 1.9 Anxiety 94950900 F41.9 Chronic back pain 221589 002 M54.10 Hypertensive disorder 38 017786 I10 [id number] Krystal Welsh APRN [place] [address] [place] [address] 11/26/2020 11:06:55 11/26/2020 12:13:56 Gastroesophageal reflux disease 458173767 K21.9 Epigastric pain 08134271 R10.13 [id number] Mir Javier MD [address] [place] [address] 12/13/2020 13:43:36 12/13/2020 14:53:29 Body mass index 30+ - obesity 420089870 Z68.31 Injury of muscle of right foot 8941802365 5952242 S96.901D Lumbosacra l radiculopathy 5668700 M54.16 Anxiety 81579740 F41.9 Acid reflux 193529699 K2 1.9 Hypertensive disorder 38 702153 I10 Chronic back pain 362303 002 M54.10 [id number] Mir Javier MD [address] [place] [address] 03/21/2021 15:58:15 03/21/2021 16:49:47 Anxiety 28443998 F41.9 Acid reflux 366534498 K2 1.9 Pain in throat 259290640 R07.0 Chronic back pain 116958 002 M54.10 Hypertensive disorder 38 887200 I10 Lumbosacra l radiculopathy 6776317 M54.16 [id number] Mir Javier MD [address] [place] [address] 04/10/2021 11:19:11 04/10/2021 11:40:26 Administration of SARS-CoV-2 antigen vaccine 358142034 Z23 [id number] Mir Javier MD [address] [place] [address] 05/09/2021 08:40:31 05/09/2021 10:28:23 Administration of SARS-CoV-2 antigen vaccine 108151201 Z23 [id number] Jose David Garza DO [address] [place] [address] 08/22/2021 09:43:30 08/22/2021 10:48:16 Viral screening 108956835 Z11.52 COVID-19 803867126 U07.1 Anxiety 03955398 F41.9 [id number] Mir Javier MD [address] [place] [address] 10/17/2021 09:52:49 10/17/2021 11:12:20 Anxiety 25884099 F41.9 Acid reflux 229634003 K2 1.9 Chronic back pain 870004 002 M54.10 Hypertensive disorder 38 110763 I10 Lumbosacra l radiculopathy 7847544 M54.16 Body mass index 30+ - obesity 485377051 Z68.31 Administra tion of diphtheria, pertussis, and tetanus vaccine 543737651 Z23 Administra tion of tetanus vaccine 623475668 Z23 Family his tory of diabetes mellitus 309034595 Z83.3 [id number] Mir Javier MD [facility] [address] [place] [address] 04/03/2022 08:19:25 04/03/2022 09:37:30 Family history of diabetes mellitus 022831897 Z83.3 Anxiety 98633009 F41.9 Lumbosacra l radiculopathy 1738184 M54.16 Acid reflux 833046309 K2 1.9 Chronic back pain 821993 002 M54.10 Hypertensive disorder 38 852289 I10 Dizziness 361775019 R42 [id number] Alejandra Castellano [address] [address] 05/16/2022 08:36:51 05/16/2022 09:47:10 Chronic back pain 872854426 M54.10 follow up with pain management as scheduledp laced off work for 2 weeks to do PT treatments Hypertensive disorder 38 608099 I10 renal artery duplexcard iology referralke ep bp log and bring to appointmen t next week Anxiety 19954948 F41.9 Liver enzy mes level above reference range 450548287 R74.8 Acid reflux 295026646 K2 1.9 Lumbosacra l radiculopathy 5406397 M54.16 [id number] Alejandra Castellano [address] [address] 05/22/2022 15:30:08 05/22/2022 16:17:32 Hypertensive disorder 37025718 I10 renal artery duplexcard iology follow up testing per cardiology eye examif any symptoms worsen return or be seen in edkeep bp log and bring to appointmen t next week Impaired f asting glycemia 036558355 R73.01 Influenza vaccine needed 6195323689 106 Z23 [id number] Alejandra Leóncal [address] [address] 05/30/2022 14:38:17 05/30/2022 15:15:04 Chronic back pain 510755051 M54.10 follow up with pain management as scheduledp laced off work for 2 weeks to wait for appointmen t for neurosurge ry [id number] Alejandra Castellano [address] [address] 06/10/2022 17:18:42 06/10/2022 18:15:08 COVID-19 943999076 U07.1 no sign of a bacterial infection. [...] hoursgo to ed brando if any concerns [id number] Alejandra D[address] [address] 06/13/2022 10:31:15 06/13/2022 10:43:38 COVID-19 834609236 U07.1 no sign of a bacterial infection. [...] brando if any concerns Chronic back pain 848363 002 M54.10 follow up with pain management as scheduledp laced off work ftill 07/13/22 until appointmen t for neurosurge ry Hypertensive disorder 38 664561 I10 cardiology follow up testing per cardiology if any symptoms worsen return or be seen in edkeep bp log and bring to appointmen t next week [id number] Alejandra Castellano [employer] [address] [address] 07/10/2022 09:31:31 07/10/2022 10:27:00 Anxiety 59883774 F41.9 Pt compliant with plan of careKasper reviewedme dication compliance discussedL ast uds:Control substance agreement on filePatien t identified triggers for anxiety and impact of anxious thinking on functionin g. Discussed strategies to regulate symptoms and need for compliance with treatment. Long-term drug therapy 664495122 Z79.796 [id number] Alejandra Castellano [address] [address] 07/14/2022 09:59:20 07/14/2022 10:43:19 Chronic back pain 078425634 M54.10 follow up with pain management as scheduledr eleased to return back to work on light duty for 4 weeks [id number] Alejandra Castellano [address] [address] 08/07/2022 08:48:39 08/07/2022 09:46:50 Chronic back pain 610500548 M54.10 follow up with pain management as scheduledd iscuss work restrictio ns with back specialist Anxiety 38790220 F41.9 Pt compliant with plan of careKasper reviewedme dication compliance discussedL ast uds:Control substance agreement on filePatien t identified triggers for anxiety and impact of anxious thinking on functionin g. Discussed strategies to regulate symptoms and need for compliance with treatment. [id number] Alejandra Castellano [address] [address] 08/21/2022 08:50:54 08/21/2022 09:47:18 Chronic back pain 797614228 M54.10 follow up with pain management as scheduledd iscuss work restrictio ns with back specialist continue PT as scheduleda ny changes or new symptoms return or be seen in ed [id number] Alejandra Castellano APRN [address] [address] 09/04/2022 08:15:27 09/04/2022 08:48:46 Anxiety 97650243 F41.9 Pt compliant with plan of careKasper reviewedme dication compliance discussedL ast uds:Control substance agreement on filePatien t identified triggers for anxiety and impact of anxious thinking on functionin g. Discussed strategies to regulate symptoms and need for compliance with treatment. [id number] Alejandra Castellano [address] [address] 10/16/2022 09:51:12 10/16/2022 10:45:47 Anxiety 44038204 F41.9 Pt compliant with plan of careKasper reviewed and appropriat emedicatio n compliance discussedL ast uds:Control substance agreement on filePatien t identified triggers for anxiety and impact of anxious thinking on functionin g. Discussed strategies to regulate symptoms and need for compliance with treatment. Active or passive immunization 932909303 Z23 [id number] Alejandra Castellano [employer]AT[employer] SUPER[employer] [address] [address] 11/17/2022 14:30:03 11/17/2022 15:22:36 Anxiety 84811007 F41.9 Pt compliant with plan of careKasper [...] time Long-term current use of drug therapy 758945387 Z79.692 [id number] Alejandra Castellano [address] [address] 12/08/2022 08:45:49 12/08/2022 09:41:10 Hypertensive disorder 99227527 I10 cardiology follow up testing per cardiology if any symptoms worsen return or be seen in edkeep bp log and bring to appointmen t next week Anxiety 31204102 F41.9 Pt compliant with plan of [place] [...] time Body mass index 25-29 - overweight 083556672 Z68.27 27.8 Overweight 303363132 E66 .3 Low back pain 864378634 M54.50 [id number] [address] [address] 02/27/2023 16:03:45 02/27/2023 17:03:31 Depressive disorder 45250933 F32.A follow up with psych and therapy as scheduled Skin lesion 28732682 L98 .9 Impaired g lucose tolerance 8107405 R73.02 dexcom pro placedretu rn in 10 days for readings and treatment plan [id number] Alejandra Castellano [address] [address] 03/09/2023 07:59:32 03/09/2023 08:46:59 Body mass index 25-29 - overweight 261681023 Z68.25 25.9 Overweight 098830153 E66 .3 Dizzy spells 891397461 R 42 Increased thirst 2123584 03 R63.1 Impaired g lucose tolerance 7505327 R73.02 continue to monitor glucose and keep logglucose tolerancew hen spell starts check glucose every 10 mins [id number] Alejandra Castellano [address] [address] 03/27/2023 09:13:53 03/27/2023 10:08:08 Dizziness 285081210 R42 glucose tolerance results are good- recommend continue monitoring glucose and check glucose during episode.ca ll see cardiology brando and explain to them symptoms- for more work upreturn if any symptomsfo llow up with neurology [id number] Alejandra Castellano [address] [address] 05/07/2023 13:38:59 05/07/2023 14:10:51 Anxiety 76200916 F41.9 letter given to pt confirming diagnosis and the need for a 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 informed the vet would know more about the other paperwork that is needed Depressive disorder 2914 0884 F32.A follow up with psych and therapy as scheduled [id number] Margie Spicer [facility] [address] [place] [address] 12/15/2023 14:17:00 12/15/2023 15:37:04 Repetitive self-excoriation 180046924 F42.4 educated on scratch/it ch cycle Seborrheic dermatitis 50 526467 L21.9 [id number] Alejandra Castellano [address] [address] 05/19/2023 14:34:58 05/19/2023 14:48:05 Influenza vaccine needed 8961868837 106 Z23 [id number] Alejandra Castellano [address] [address] 11/06/2023 08:38:22 11/06/2023 09:15:58 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 Depressive disorder 9104 4757 F32.A follow up with psych and therapy as scheduled Chronic back pain 160509 002 M54.10 follow up with pain management as scheduled continue with pain management any changes or new symptoms return or be seen in ed Body mass index 30+ - obesity 624371159 Z68.31 Obesity 330995853 E66.9 Gastroesop hageal reflux disease without esophagitis 778840254 K21.9 Anxiety 34147259 F41.9 Hypertensive disorder 38 500252 I10 pt wants to wait on labs has children with him todaycardi ology follow up testing per cardiology if any symptoms worsen return or be seen in [place] [id number] Alejandra Castellano [address] [address] 02/08/2024 08:02:05 02/08/2024 09:11:45 Increased frequency of urination 287250730 R35.0 will treat with antibiotic s until culture resultsif symptoms worsen or no improvemen t go to ed for eval Chronic back pain 026669 002 M54.10 follow up with pain management as scheduled continue with pain management any changes or new symptoms return or be seen in ed Depressive disorder 3548 9007 F32.A follow up with psych and therapy as scheduled Family his tory of diabetes mellitus 359324446 Z83.3 Hypertensive disorder 38 301529 I10 pt wants to wait on labs has children with him todaycardi ology follow up testing per cardiology if any symptoms worsen return or be seen in ed [id number] Alejandra Castellano [address] [address] 03/28/2024 14:51:34 03/28/2024 16:57:03 Impacted cerumen of bilateral ears 5180300993 595336 H61.23 Acute righ t otitis media 167133730 H66.91 [id number] Alejandra Castellano [address] [address] 04/15/2024 14:03:15 04/15/2024 14:22:05 Influenza vaccine needed 2175167270 106 Z23 [id number] Alejandra Castellano [address] [address] 06/21/2024 13:34:16 06/21/2024 14:28:22 Peripheral vascular disease 785477145 I73.[address] rodriguez- sent pt to [facility] for direct admission for poss interventi on- stents report to laly at [facility] [id number] Alejandra Leóncal PATRICIA [address] [address] 07/14/2024 15:01:09 07/22/2024 13:53:04 Peripheral vascular disease 537074419 I73.9 keep follow up appointmen ts, any issues return or be seen in ed [id number] Alejandra Castellano PATRICIA [address] [address] 10/14/2024 09:52:18 10/14/2024 10:54:26 Lumbosacral radiculopathy 8950736 M54.16 Chronic back pain 740964 002 M54.10 follow up with pain management [...] 2022 (MEDICAID REPLACEMENT - HMO) REHAN Tesfaye [id number] Bill Tesfaye 05/29/2022 1 [employer] ([place] REHAN Tesfaye [id number] Bill Tesfaye 05/29/2022 [place] [facility] [place] Bill Tesfaye [id number] Bill Tesfaye 10/25/2024 1 [facility] (MEDICAID HMO) Bill Tesfaye [id number] Bill Tesfaye 10/11/2024 [place] [facility] [place] [facility] Bill Tesfaye [id number] Bill Tesfaye 05/29/2022 1 [employer] (MEDICAID REPLACEMENT - HMO) [facility] Bill Tesfaye [id number] Bill Tesfaye 05/29/2022 [place] [facility] [place] Billmark Tesfaye [id number] Bill Mir Tesfaye 05/29/2022 1 [facility] (MEDICAID HMO) Billmark Tesfaye [id number] Bill Mir Tesfaye 10/07/2016 1 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 Bill Hester Brien 05/29/2022 [place] [facility] [place] Billmark Tesfaye [id number] Billmark Tesfaye 05/29/2022 [place] [facility] [place] Billmark Tesfaye [id number] Bill Mir Tesfaye 05/29/2022 [place] [facility] [place] Billmark Tesfaye [id number] Billmark Tesfaye Notes Date Note Type Note Provider Name and Address Organization Details Recorded Time 03/28/2024 text/html ROS as noted in the HPI 38 year old male who presents to the office today with concerns ofleft ear pain, popping and ringing, started yesterday, states starting to feel the same way in the right ear also Alejandra Castellano, [employer]ATFORM SUPER[employer] [address], [place], [address], [place] - [facility] 03/28/2024 16:37:59 04/15/2024 text/html 38 yr old male presents for a flu vaccine. Maritza falk, [place] - [facility] 04/15/2024 14:33:04 06/21/2024 text/html ROS as noted in the HPI 38 yr old male presents for right foot and calf pain x 1 week. He has lost his toenails on the right foot from several toes. Skin is peeling from around toes. Alejandra Castellano, PLATFORM SUPERVISOR [address], [place], [address], [place] - [facility] 06/21/2024 14:34:15 07/12/2024 text/html Emergency Depart ment Follow-Up RecordReported by PatientEmergency Room Follow-Up RecordFor discharge information, patient reportsname of hospital/urgent care patient was seen: ([facility]),patient presented to hospital for treatment of: (decreased circulation),treatmen t received by hospital/urgent care: (admitted),patient's condition has: improved, andhospital records available at the time of this visit: no.ROS as noted in the HPI 38 yr old male following up from hospital stay. He had poor circulation in his right leg resulting in toenails coming off and discoloration of skin. Patient was admitted and placed on heparin drip. He is currently wearing a heart monitor and seeing podiatry, Alejandra Castellano APRN [address], [place], [address], [facility] - [facility] 07/21/2024 14:26:30 10/14/2024 text/html ROS as noted in the HPI 38 year old male who presents to the office today with concerns ofchronic back pain, needing disability paperwork filled out. pt states he is disabled and draws ssi. Alejandra Castellano APRN [address], [place], [address], [facility] - [facility] 10/14/2024 10:51:45
--- NOTE | 2025-03-03 08:00 | CT_ITS ---
FINAL REPORT TECHNIQUE: Axial CT without IV contrast administration. Supine inspiration and expiration and prone inspiration hi-resolution images were obtained and reviewed. This study was performed with techniques to keep radiation doses as low as reasonably achievable, (ALARA). Individualized dose reduction techniques using automated exposure control or adjustment of mA and/or kV according to the patient''s size were employed. CLINICAL HISTORY: alpha -1- antitrypsin COMPARISON: none FINDINGS: The lungs are clear. There is no evidence of interstitial lung disease or emphysematous disease. Mild bronchiectasis is noted in the lower lobes. No pleural or pericardial effusion is seen. No adenopathy or mass lesion is present. Limited images of the upper abdomen demonstrate fatty infiltration of the liver. IMPRESSION: No evidence of emphysema or interstitial lung disease. Mild bronchiectasis. Reviewed, Interpreted and Dictated by William Carnes MD Transcribed by Keila Anaya Authenticated and [facility]
== END 2025-03-03 23:59 | disposition home or self-care (01) ==
LOC: RAD 07:42
PROVIDERS: PCP Nurse Practitioner Family; Visit Provider Internal Medicine Pulmonary Disease
DX: J47.9 Bronchiectasis, uncomplicated (principal); M21.6X1 Other acquired deformities of right foot; E88.01 Alpha-1-antitrypsin deficiency
CPT/HCPCS: 71250; 73630

== ENCOUNTER 2025-03-10 09:04 | Day surgery (SDC) | payer MEDICARE, MEDICAID, SELFPAY ==
--- NOTE | 2025-03-10 09:09 | EXP.PM.HP ---
History of Present Illness *Admission Date: 03/10/25 *Reason for visit:: Intrathecal refill; DDD *History of present illness: Same [facility] Disclaimer: The information contained in this section may have been updated after the patient was seen, as this information can be updated by other users. Medical History Impacted cerumen of both ears Tinnitus, bilateral Stranguria Frequency of micturition Palpitations Suicidal ideation Exposure to COVID-19 virus URI (upper respiratory infection) Ingrown toenail of left foot with infection Pain and swelling of toe of left foot Obesity (BMI 30.0-34.9) Ingrowing Toenail Postlaminectomy syndrome Degenerative disc disease SOB (shortness of breath) Chest pain Chronic HFrEF (heart failure with reduced ejection fraction) Right foot infection Edema of right foot History of urinary frequency Tinnitus Impacted cerumen, bilateral Hearing difficulty of both ears History of esophageal dilatation Fatty liver Vuppn-1-mdrebkapkio deficiency Esophageal stricture Hx of esophageal stretching x 2, AVOID LENARD LV dysfunction Cardiomyopathy Anxiety Hypertension Daytime somnolence History, findings on exam and risk factors are suggestive of underlying sleep disordered breathing. Recent home sleep study was inconclusive and cannot exclude underlying mild MARYCRUZ. I am recommending a PSG under supervision at the sleep center. The patient voiced understanding and was in agreement with the plan. Snoring Fatigue Systolic heart failure Abnormal result of cardiovascular function study Abnormal electrocardiogram [ECG] [EKG] Surgical History History of surgery spinal stimulator placement History of arthroplasty of right hip H/O lumbar discectomy History of right knee surgery History of tonsillectomy and adenoidectomy History of appendectomy Family History Other Diabetes Family history non-contributory Social History Smoking Status: Never smoker second hand exposure: No alcohol intake: never substance use type: denies use current occupational status: other Travel in the last 8 weeks?: None household members: spouse housing: house current occupation: [employer] current occupational exposures/hazards: No caffeine: Yes Have you lived/traveled outside [place] in past 30 days?: No Contact w/someone who lives/traveled outside [place] past 30 days?: No Exposure to someone with infectious disease in past 14 days?: No Do you have a fever (greater than 100.4 F or 38 C)?: No Have you tested positive for COVID-19?: No Exposed to someone with COVID-19 in past 14 days?: No Do you have a sore throat?: No Do you have a cough?: No Do you have any weakness?: No Do you have any diarrhea?: No Are you experiencing any unusual bleeding?: No Do you have any muscle aches/pain?: No Do you have any abdominal pain?: No Are you experiencing loss of taste or smell?: No Other Medical History Have you received the Flu Vaccine for this season: No Have you received the Pneumonia Vaccine: No Review of Systems Review of Systems Review of systems:: pertinent systems reviewed and negative unless documented below Review of systems (narrative): Review of Systems: General: No recent weight changes, no fever, no sleep disturbances Respiratory: No cough, no shortness of air, no recurring pulmonary infections Cardiovascular/peripheral vascular: No chest pain, no palpitations, no edema, no shortness of breath Gastrointestinal: No new onset incontinence, normal bowel movements reported Genitourinary: No new onset incontinence Musculoskeletal: Chronic back pain Psychiatric: [Normal mood/affect] Neurological: [Denies weakness in extremities], [denies balance issues] Meds Home Medications and Allergies Home Medications ?Medication ?Instructions ?Recorded ?Confirmed ?Type famotidine 40 mg tablet 40 mg PO DAILY 05/19/22 03/06/25 History multivitamin 1 tab PO DAILY SUPPLIMENT 08/13/22 03/06/25 History pantoprazole 40 mg tablet,delayed 40 mg PO BID 10/02/22 03/06/25 History release quetiapine 100 mg tablet 100 mg PO HS 05/12/23 03/06/25 History oxcarbazepine 150 mg tablet 150 mg PO BID 07/21/23 03/06/25 History (Trileptal) buspirone 15 mg tablet 15 mg PO TID 02/29/24 03/06/25 History azelastine 137 mcg (0.1 %) nasal 2 spray intranasal BID #30 mL 04/07/24 03/06/25 Rx spray oxybutynin chloride 10 mg 10 mg PO DAILY #90 tabs 04/18/24 03/06/25 Rx tablet,extended release 24 hr tamsulosin 0.4 mg capsule (Flomax) 0.4 mg PO DAILY #30 caps 04/18/24 03/06/25 Rx clobetasol 0.05 % shampoo 1 applic topical DAILYP PRN Skin 06/22/24 03/06/25 History Irritation clobetasol 0.05 % topical ointment 1 applic topical TIDP PRN Itching 06/22/24 03/06/25 History ketoconazole 2 % topical cream 1 applic topical BIDP PRN Skin 06/22/24 03/06/25 History Irritation doxepin 50 mg capsule 50 mg PO HS 09/14/24 03/06/25 History duloxetine 60 mg capsule,delayed 60 mg PO BID 09/14/24 03/06/25 History release diclofenac sodium 1 % topical gel See Rx Instructions .Route 10/22/24 03/06/25 Rx .COMPLEX #100 grams dapagliflozin propanediol 5 mg 5 mg PO DAILY #90 tabs 11/07/24 03/06/25 Rx tablet (Farxiga) ammonium lactate 12 % topical cream 1 applic topical BID dry skin, 11/08/24 03/06/25 Rx callus care 30 days #385 grams baclofen 10 mg tablet 10 mg PO TID #90 tabs 12/09/24 03/06/25 Rx mupirocin 2 % topical ointment See Rx Instructions .Route 01/08/25 03/06/25 Rx .COMPLEX #22 grams metoprolol succinate 25 mg See Rx Instructions PO BID #270 03/06/25 03/06/25 Rx tablet,extended release 24 hr tabs (Toprol XL) rivaroxaban 20 mg tablet 20 mg PO QPMWITHMEAL 30 days #30 03/06/25 03/06/25 Rx tabs sacubitril 49 mg-valsartan 51 mg 1 tab PO BID #60 tabs 03/06/25 03/06/25 Rx tablet (Entresto) vitamin E mixed 800 unit capsule unit PO 03/06/25 03/06/25 History New Prescriptions to Start Prescriptions: Allergies Allergy/AdvReac Type Severity Reaction Status Date / Time Penicillins (PENICILLINS) Allergy Intermediate I-RASH Verified 03/06/25 10:47 tizanidine Allergy Difficulty Verified 03/06/25 10:47 Breathing Exam Constitutional Constitutional: no acute distress *Routine HEENT Exam Head: Present normocephalic and atraumatic Eye: Present PERRL ENT: Present mucous membranes moist *Routine Neck Exam Neck: Present supple *Routine Respiratory Exam Respiratory: Present CTA bilaterally *Routine Cardiovascular Exam Cardiovascular: Present RRR *Routine Abdominal Exam Abdominal: Present soft *Routine Rectal Exam Rectal:: deferred *Routine Genitalia Exam Genitalia:: deferred Routine Back/Spine/Pelvis Exam Back/Spine: Present pain with flexion *Routine Skin Exam Skin: Present intact and warm *Routine Neurological Exam Neurological: Present alert and oriented X3 Routine Psychiatric Exam Psychiatric: Present normal affect and normal thought process Assessment and Plan *Assessment and plan (1) Degenerative disc disease, lumbar: Status: Acute Qualifiers: Disc-related pain type: discogenic back pain and lower extremity pain Qualified Code(s): M51.362 - Other intervertebral disc degeneration, lumbar region with discogenic back pain and lower extremity pain Category: Medical Code(s): M51.369 - Other intervertebral disc degeneration, lumbar region without mention of lumbar back pain or lower extremity pain (2) Chronic low back pain: Status: Acute Qualifiers: Back pain laterality: bilateral Sciatica presence: without sciatica Qualified Code(s): M54.50 - Low back pain, unspecified; G89.29 - Other chronic pain Category: Medical Code(s): M54.50 - Low back pain, unspecified; G89.29 - Other chronic pain Plan Patient has been instructed to contact the clinic with any concerns before the next appointment. Dr. Eden has reviewed this note and agrees with this plan of care. This note was dictated using voice recognition software and make contain errors or omissions. All injections are used with Lidocaine, Bupivacaine and dexamethasone. Occasionally urine drug screen is needed to verify patient's compliance with our office pain contract. This is ordered based off specific treatments related to chronic pain with the potential to abuse certain medications.
--- NOTE | 2025-03-10 09:11 | EXP.PAIN.PRO ---
Procedure Date: 03/10/25 Time: 09:49 Anesthesiologist:: Helene Fournier APRN Complications:: None Pre-procedure Diagnosis:: Degenerative disc disease of lumbar spine with lumbar radiculopathy symptoms, chronic pain syndrome Post-procedure Diagnosis:: Same Indications for Procedure:: patient is a pleasant 39-year-old male who presents today for medication refill and follow-up. Today he rates his pain a 5/10. He denies any new falls or injuries. He does state that his other physicians are wanting him to lose 30 pounds. Patient has been increasing his activity and having little bit more pain. Patient is currently managed with bupivacaine 10 mg/mL with a daily dose of 3.302 mg/day. He denies any side effects. His Jimbo has been reviewed and is appropriate. Physical Exam: General: Alert and oriented x3, no acute distress, pleasant and cooperative Lungs: Respirations even and unlabored, symmetrical chest expansion Eyes: PERRL Musculoskeletal: Flexion and extension of lumbar [spine] somewhat guarded secondary to pain, [antalgic gait noted] Neurological: Speech clear, no gross sensory deficit Procedure Details:: Informed consent was obtained and the risk and benefits of the procedure were explained to the patient. The patient had noninvasive monitoring placed including noninvasive blood pressure cuff and pulse oximeter. Patient's pump was interrogated. The area over the pump was cleansed with chlorhexidine as a cleansing solution. In sterile fashion the pump was accessed with a 22-gauge needle. Approximately 6 mls of the pump solution was removed and discarded appropriately. The pump was then refilled with 20 mL's of bupivacaine 10 mg/mL. The needle was withdrawn and a bandage was placed over the puncture site. The infusion rate was reprogrammed and increased to 3.468 mg/day. The patient tolerated well with no complication. Plan and Disposition:: Patient tolerated the procedure well with no complications and was discharged neurologically intact. Patient will return to clinic on or before their next intrathecal refill date. We will see the patient back in the clinic at the next intrathecal refill. Patient has been instructed to contact the clinic with any concerns before the next appointment. Dr. Eden has reviewed this note and agrees with this plan of care. This note was dictated using voice recognition software and make contain errors or omissions. -- It Is medically necessary for this patient to continue to have their intrathecal pump refilled at regular intervals. This patient had an intrathecal pain pump implanted after meeting criteria of chronic intractable pain for greater than 3 months and failing conservative treatments. Patient has committed and been compliant to the treatment plan and all planned follow up care. Since implantation of the intrathecal pain pump, the patient has had decreased pain and been more functional. Oral medications have been reduced including intake of oral opioids. Patient continues to do well with intrathecal therapy with decrease in pain symptoms and increase in functional status. Stopping intrathecal medications can lead to life threatening withdrawal, seizures, cardiac arrest, severe pain, and possible . Pumps that are not refilled at regular intervals can be damages and cause and need for replacement. We continually titrate dose and concentration to optimize pain relief and function. We are limited in concentration for certain drugs to safely deliver medications through the pump and stay within the recommendations from the [employer] Consensus [employer] Guidelines. Depending on dose and concentration these pumps may need to be refilled sooner than 3 months as we titrate. A UDS is needed to verify patient's compliance with our office pain contract. This is ordered based off specific treatments related to chronic pain with the potential to abuse certain medications.
[2025-03-10 09:17] VITALS: BP 109/67; PULSE 78; RESP 18; O2SAT 98; BMI 35.6
[2025-03-10 09:40] VITALS: BP 100/65; PULSE 78; RESP 18; O2SAT 96
[2025-03-10 09:51] VITALS: BP 113/72; PULSE 76; RESP 18; O2SAT 96
== END 2025-03-10 09:51 | disposition home or self-care (01) ==
PROVIDERS: Visit Provider Nurse Practitioner Family
DX: Z45.1 Encounter for adjustment and management of infusion pump (principal); G89.29 Other chronic pain; M51.362 Other intervertebral disc degeneration, lumbar region with discogenic back pain and lower extremity pain; M51.16 Intervertebral disc disorders with radiculopathy, lumbar region; E66.9 Obesity, unspecified; Z68.35 Body mass index [BMI] 35.0-35.9, adult; I11.0 Hypertensive heart disease with heart failure; I50.22 Chronic systolic (congestive) heart failure; R40.0 Somnolence; F41.9 Anxiety disorder, unspecified; R35.0 Frequency of micturition; Z79.899 Other long term (current) drug therapy; Z79.01 Long term (current) use of anticoagulants; Z88.0 Allergy status to penicillin; Z88.8 Allergy status to other drugs, medicaments and biological substances
CPT/HCPCS: 62370

== ENCOUNTER 2025-03-24 09:11 | Outpatient (CLI) | payer MEDICARE, MEDICAID, SELFPAY ==
--- OUTSIDE RECORDS SUMMARY | 2025-03-13 09:00 | XMS_ITS | Encounter Summary ---
Author Organization Healthcare Address [address] [place] [address] Care Team Providers Care Business Trainer Name Role Phone Inocencia Hastings APRN, DNP Unavailable [phone]- [phone] Ly Morales APRN Primary Care Provider [phone]- [phone] Reason for Referral * Imaging (Routine) - Authorized Specialty Diagnoses / Procedures Referred By Faustino bailey Referred To Contact Radiology Diagnoses Neuromuscular dysfunction of bladder, unspecified Procedures US Renal Complete Helene Pal APRN, DNP [address] [address] Phone: tel: fax: Referral ID Status Reason Start Date Expiration Date V isits Requested Visits Authorized [id number] Authorized 03/13/2025 09/12/2026 1 1 Reason for Visit * Reason Comments Urinary Frequency Encounter Details Date Type Department Care Team (Late st Contact Info) Description 03/13/2025 9:00 AM EDT [facility] [address] [place] [address] Helene Pal APRN, DNP [id number] [place] [address] Urine frequency (Primary Dx); Microhematuria; Neuromuscular dysfunction of bladder, unspecified; Neurogenic bladder; Retention, urine; Difficulty voiding; PFD (pelvic floor dysfunction) Social History Tobacco Use Types Packs/Day Years Used Date Smoking Tobacco: Never Smokeless Tobacco: Never Tobacco Cessation:Counseling Given: Not Answered Alcohol Use Standard Drinks/Week Comments Never 0 (1 standard drink = 0.6 oz pur e alcohol) PHQ-2 Answer Date Recorded Patient Health Questionnaire-2 Score 0 03/13/2025 Sex and Gender Information Value Date Recorded Sex Assigned at Male 01/21/2021 12:55 PM EDT Legal Sex Male 5:58 PM EDT Gender Identity Male 01/21/2021 12:55 PM EDT Sexual Orientation Straight 01/21/2021 12 :55 PM EDT documented as of this encounter Last Filed Vital Signs Vital Sign Reading Time Taken Comments Blood Pressure 95/64 03/13/2025 8:46 AM EDT Pulse 73 03/13/2025 8:46 AM EDT Temperature 36.4 C (97.6 F) 03/13/2025 8:46 AM EDT Respiratory Rate 15 03/13/2025 8:46 AM EDT Oxygen Saturation 95% 03/13/2025 8:46 AM EDT Inhaled Oxygen Concentration - - Weight 123 kg (272 lb 0.8 oz) 03/13/2025 8:46 AM EDT Height 185.4 cm (6' 1 ) 03/13/2025 8:46 AM EDT Body Mass Index 35.89 03/13/2025 8:46 AM EDT documented in this encounter Functional Status * Over the past 2 weeks, how often have you been bothered by any of the following problems? Question Answer Date of Assessment Author Little interest or pleasure in doing things Not at all 03/13/2025 8:49 AM EDT Rachel Norris LPN Feeling down, depressed, or hopeless Not at all 03/13/2025 8:49 AM EDT Rachel Norris LPN Patient Health Questionnaire-2 Score 0 03/13/2025 8:49 AM EDT Rachel Norris LPN documented as of this encounter Miscellaneous Notes * Progress Notes - Helene Pal, PATRICIA, BETO - 03/13/2025 9:00 AM EDT [facility] Note CC: Urinary Frequency HPI: Bill Tesfaye is a 39 y.o. M who was initially evaluated in June 2024 for a several year history of urinary urgency without any urine produced when voiding, dysuria, and straining to void. He drinks 4-5 bottles of water and 2 glasses of tea daily. Recalls being denied into in high school due to proteinuria that was never evaluated. He has a long history of DDD with prior discectomy, pain pump placement, and spinal stimulator for chronic back pain and RLE neuropathy/radiculopathy. He has atrial fibrillation with a history of TIA x3, [id number] deficiency, cardiomyopathy, and emphysema. He uses Baclofen 5 mg TID without ASE. Difficulty voiding: -March 2024 Dr. Matias prescribed oxybutynin and Flomax without improvement -Jun 2024 1-3x/day to a normal urge, post void dribbling, and post void UI, Flomax, conservative measures, and maximal Baclofen continued -Jun 2024: Cr 1.11 and GFR 83 -Jul 2024: LIZETH resulted without hydronephrosis or stones bilaterally. Mildly distended bladder withPVR 122 mL. 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 Nephrology referral provided for abnormal renal function. He returns today for follow up and reports his symptoms are about the same with bothersome straining to urinate that causes burning. He continues to use Flomax and Baclofen 20 mg TID without ASE, is unable to start PFPT yet, due to insurance coverage for regular PT, used sitz bath once without improvement, and has not tried heating pads. He was evaluated by Nephrology and was told everything wasokay . PMHx: Problem List[1] Past Medical History[2] PSHx: Surgical History[3] FHx: Family History[4] SHx: Social History[5] ROS: See HPI Physical Exam: Vitals: 03/13/25 0846 BP: 95/64 Pulse: 73 Resp: 15 Temp: 36.4 ??C (97.6 ??F) SpO2: 95% Physical Exam Constitutional: Appearance: Normal appearance. He is obese. Pulmonary: Effort: Pulmonary effort is normal. Abdominal: General: Abdomen is flat. Musculoskeletal: General: Normal range of motion. Cervical back: Normal range of motion. Comments: ambulates easily with assistance of a cane Skin: General: Skin is warm and dry. Neurological: General: No focal deficit present. Mental Status: He is alert and oriented to person, place, and time. Mental status is at baseline. Psychiatric: Mood and Affect: Mood normal. Behavior: Behavior normal. Thought Content: Thought content normal. Judgment: Judgment normal. Results/Data: Recent Results (from the past week) POC US Bladder Volume Collection Time: 03/13/25 12:00 AM Result Value Ref Range Urine, Volume 12 mL POCT URINALYSIS DIPSTICK Collection Time: 03/13/25 8:43 AM Result Value Ref Range POCT Urine Color Yellow POCT Urine Clarity Clear POCT Urine Glucose >=1000 (A) Negative mg/dL POCT Urine Bilirubin Negative Negative mg/dL POCT Urine Ketones Negative Negative mg/dL POCT Urine Specific [place] 1.010 1.005 - 1.030 POCT Urine Blood Trace (A) Negative POCT pH, Urine 7.0 5.0 - 8.0 POCT Protein, Urine Negative Negative mg/dL POCT Urobilinogen, Urine 0.2 0.2, 1.0 EU/dL POCT Nitrite, Urine Negative Negative POCT Urine Leukocyte Esterase Negative Negative Urinalysis, Microscopic Collection Time: 03/13/25 10:05 AM Result Value Ref Range RBC, Urine <1 0 to 3 /HPF WBC, Urine 0 - 5 0 to 5 /HPF Squamous Epithelial Cells 0 - 2 0 to 5 /HPF Hyaline Casts 0 - 2 0 to 5 /LPF Bacteria, Urine Negative Negative Urine Culture Collection Time: 03/13/25 10:05 AM Specimen: Urine, Clean Catch Result Value Ref Range Culture <10,000 CFU/mL Mixed urogenital, fecal, or skin mohan present. Labs: No results found for: HGBA1C Lab Results Component Value Date GLUCOSE 121 (H) 01/04/2025 CALCIUM 9.2 01/04/2025 NA 141 01/04/2025 K 4.0 01/04/2025 CO2 23 01/04/2025 CL 105 01/04/2025 BUN 8 01/04/2025 CREATININE 1.07 01/04/2025 EGFR 91.7 01/04/2025 Recent Results (from the past week) POC US Bladder Volume Collection Time: 03/13/25 12:00 AM Result Value Ref Range Urine, Volume 12 mL POCT URINALYSIS DIPSTICK Collection Time: 03/13/25 8:43 AM Result Value Ref Range POCT Urine Color Yellow POCT Urine Clarity Clear POCT Urine Glucose >=1000 (A) Negative mg/dL POCT Urine Bilirubin Negative Negative mg/dL POCT Urine Ketones Negative Negative mg/dL POCT Urine Specific [place] 1.010 1.005 - 1.030 POCT Urine Blood Trace (A) Negative POCT pH, Urine 7.0 5.0 - 8.0 POCT Protein, Urine Negative Negative mg/dL POCT Urobilinogen, Urine 0.2 0.2, 1.0 EU/dL POCT Nitrite, Urine Negative Negative POCT Urine Leukocyte Esterase Negative Negative Urinalysis, Microscopic Collection Time: 03/13/25 10:05 AM Result Value Ref Range RBC, Urine <1 0 to 3 /HPF WBC, Urine 0 - 5 0 to 5 /HPF Squamous Epithelial Cells 0 - 2 0 to 5 /HPF Hyaline Casts 0 - 2 0 to 5 /LPF Bacteria, Urine Negative Negative Urine Culture Collection Time: 03/13/25 10:05 AM Specimen: Urine, Clean Catch Result Value Ref Range Culture <10,000 CFU/mL Mixed urogenital, fecal, or skin mohan present. Cultures: Lab Results Component Value Date URINECX 03/13/2025 <10,000 CFU/mL Mixed urogenital, fecal, or skin mohan present. Imagin07/2024: LIZETH resulted without hydronephrosis or stones bilaterally. Bladder mildly distended. 140 mL prevoid bladder volume. 122 mL post void residual volume. Increased echogenicity of liver concerning for steatosis. Assessment: Bill Tesfaye is a 39 y.o. M with Urinary Frequency UA with trace blood and PVR WNL. He was strongly encouraged to continue Flomax and maximal Baclofen as previously prescribed. He was encouraged to trial sitz baths and heating pads to improve his pain that may be due to PFD. He will trial PFPT if and when he is able. He was informed that further treatment for NGB was not necessary unless he was prohibitively bothered by his symptoms or a change in upper tracts/renal function is noted on yearly surveillance in LIZETH/BMP. He ultimately deferred CIC due to pain with prior catheter use and instead opted to trial bethanechol as able to improve voiding ability. He will follow up in 3 [facility] with surveillance LIZETH and BMP. ADDENDUM: Clean catch microscopy WNL and culture with <10K MF, not treated. Plan: 1. Maximize conservative measures for PFD 2. Continue previously prescribed Baclofen up to 20 mg up to 3x/day for PFD 3. Continue Flomax 4. PFPT for PFD when/if able 5. Trial bethanechol 50 mg up to 4x/day for NGB 6. Clean catch urine sent for culture, microscopy, and mycology for MH 7. Follow up in 3 months with yearly surveillance LIZETH and BMP or earlier as necessary Helene Pal APRN, DNP [1] Patient Active Problem List Diagnosis Herniated nucleus pulposus, L4-5 right Hip pain Leg numbness Chronic back pain Lumbar facet arthropathy Radicular pain of right lower extremity Tear of right acetabular labrum Acid reflux Anxiety Dizziness Hypertensive disorder Kjzeo-6-rjasqlanons deficiency (CMS/HCC) Abnormal liver function tests Abnormal result of cardiovascular function study Cardiomyopathy Acute pharyngitis Depression Degenerative disc disease, lumbar Decreased pedal pulses Daytime somnolence Constipation Change of skin color Nail finding Cellulitis Urine frequency Fatty liver Fatigue Exposure to COVID-19 virus Esophageal stricture Elevated liver enzymes Edema of right foot Dysphagia Heartburn Hearing difficulty of both ears Gastro-esophageal reflux disease with esophagitis Ingrowing nail Right foot infection Onychomycosis Ingrown toenail of left foot with infection Infection of toe Obesity (BMI 30.0-34.9) Obstructive sleep apnea syndrome Nonalcoholic fatty liver LV dysfunction Keratosis Onychodystrophy Stranguria SOB (shortness of breath) Snoring Pulmonary emphysema (CMS/HCC) Postlaminectomy syndrome Palpitations Pain and swelling of toe of left foot Systolic heart failure (CMS/HCC) Chronic HFrEF (heart failure with reduced ejection fraction) (CMS/HCC) Symptoms involving urinary system Suspected severe acute respiratory syndrome coronavirus 2 (SARS-CoV-2) infection Suicidal ideation Chronic low back pain Gastroesophageal reflux disease without esophagitis URI (upper respiratory infection) Tinnitus Injury of muscle of right foot Painful legs and moving toes of right foot Chest pain Chest discomfort Retention, urine Difficulty voiding Intervertebral disc disorders with myelopathy, lumbar region Other specified polyneuropathies Pain in right leg Radiculopathy, lumbar region Spondylosis without myelopathy or radiculopathy, lumbar region Peripheral vascular disease, unspecified (CMS/HCC) Straining to void Spinal stenosis, lumbar region without neurogenic claudication Myopia, bilateral Localized edema Excoriation (skin-picking) disorder Dysuria Cardiomegaly Arthropathy, unspecified PFD (pelvic floor dysfunction) Neurogenic bladder Contact with and (suspected) exposure to environmental tobacco smoke (acute) (chronic) Neuromuscular dysfunction of bladder, unspecified Non-pressure chronic ulcer of other part of right foot limited to breakdown of skin (CMS/HCC) Contracture, right ankle Other acquired deformities of right foot Other symptoms and signs involving the musculoskeletal system Abnormal results of kidney function studies [2] Past Medical History: Diagnosis Date Acid reflux Alpha 1-antitrypsin PiMS phenotype Anxiety Degenerative disc disease, lumbar Delayed emergence from general anesthesia Depression 02/05/2023 Enlarged prostate Fatty liver disease, nonalcoholic GERD (gastroesophageal reflux disease) Hypertension 2017 Irregular heart beat Joint pain Labral tear of hip joint Low back pain Proteinuria Tachycardia TIA (transient ischemic attack) [3] Past Surgical History: Procedure Laterality Date ANTERIOR CRUCIATE LIGAMENT REPAIR Right APPENDECTOMY N/A Appendectomy from [facility] ESOPHAGOGASTRODUODENOSCOPY Right IR PAIN PUMP IMPLANT/ REPLACEMENT KNEE SURGERY Right ACL/MCL repair SPINAL CORD STIMULATOR IMPLANT Lumbar SPINE SURGERY 07/27/2018 L4-5 laminectomy TONSILLECTOMY N/A Tonsillectomy from [facility] [4] Family History Problem Relation Name Age of Onset No Known Problems Mother No Known Problems Father [5] Social History Tobacco Use Smoking status: Never Smokeless tobacco: Never Vaping Use Vaping status: Never Used Substance Use Topics Alcohol use: Never Drug use: Never documented in this encounter Plan of Treatment Upcoming Encounters Date Type Department Care Team (Late st Contact Info) Description 06/19/2025 8:30 AM EST Appointment [facility] Ul[facility]ound [address] [place] [address] 06/19/2025 11:20 AM EST [facility] [address] [place] [address] Helene Pal APRN, BETO [address] [place] [address] Scheduled Orders Name Type Priority Associated Diagnoses Orde r Schedule US Renal Complete Imaging Routine Neuromuscular dysfunction of bladder, unspecified Expected: 06/13/2025 (Approximate), Expires: 09/13/2026 documented as of this encounter Procedures Procedure Name Priority Date/Time Associated Diagnosis Comments URINALYSIS, MICROSCOPIC Routine 03/13/2025 10:05 AM EDT Microhematuria URINE CULTURE Routine 03/13/2025 10:05 AM EDT Microhematuria POCT URINALYSIS DIPSTICK Routine 03/13/2025 8:43 AM EDT POC US BLADDER SCAN FOR VOLUME Routine 03/13/2025 Urine frequency documented in this encounter Results * Urine Culture (03/13/2025 10:05 AM EDT) Culture <10,000 CFU/mL Mixed urogenital, fecal, or skin mohan present. 03/14/2025 10:36 AM EDT [facility] Urine Urine specimen obtained by clean catch procedure / Unknown Non-blood Collection / Unknown 03/13/2025 10:05 AM EDT 03/13/2025 10:21 AM EDT us Helene Pal APRN, BETO LAB MICROBIOLOGY - GENER AL ORDERABLES Final Result [facility] [address] [place] [address] * Urinalysis, Microscopic (03/13/2025 10:05 AM EDT) RBC, Urine <1 0 to 3 /HPF LAB URINALYSIS - AUTOMATED METHOD 03/13/2025 12:19 PM EDT [facility] WBC, Urine 0 - 5 0 to 5 /HPF LAB URINALYSIS - AUTOMATED METHOD 03/13/2025 12:19 PM EDT [facility] Squamous Epithelial Cells 0 - 2 0 to 5 /HPF LAB URINALYSIS - AUTOMATED METHOD 03/13/2025 12:19 PM EDT [facility] Hyaline Casts 0 - 2 0 to 5 /LPF LAB URINALYSIS - AUTOMATED METHOD 03/13/2025 12:19 PM EDT [facility] Bacteria, Urine Negative Negative LAB URINALYSIS - AUTOMATED METHOD 03/13/2025 12:19 PM EDT [facility] Urine Urine specimen obtained by clean catch procedure / Unknown Non-blood Collection / Unknown 03/13/2025 10:05 AM EDT 03/13/2025 10:21 AM EDT Helene Pal CLOTH BOIL OFF MACHINE OPERATOR, DNP LAB URINE ORDERABLES Fin al Result Performing Organization Address City/State/[place] de Phone Number [facility] [address] [place] [address] * (ABNORMAL) POCT URINALYSIS DIPSTICK (03/13/2025 8:43 AM EDT) POCT Urine Color Yellow 03/13/2025 8:45 AM EDT [facility] POCT Urine Clarity Clear 03/13/2025 8:45 AM EDT [facility] POCT Urine Glucose >=1000(A) Negative mg/dL 03/13/2025 8:45 AM EDT [facility] POCT Urine Bilirubin Negative Negative mg/dL 03/13/2025 8:45 AM EDT [facility] POCT Urine Ketones Negative Negative mg/dL 03/13/2025 8:45 AM EDT [facility] POCT Urine Specific [place] 1.010 1.005 - 1.030 03/13/2025 8:45 AM EDT [facility] POCT Urine Blood Trace(A) Negative 03/13/2025 8:45 AM EDT [facility] POCT pH, Urine 7.0 5.0 - 8.0 03/13/2025 8:45 AM EDT [facility] POCT Protein, Urine Negative Negative mg/dL 03/13/2025 8:45 AM EDT [facility] POCT Urobilinogen, Urine 0.2 0.2, 1.0 EU/dL 03/13/2025 8:45 AM EDT [facility] POCT Nitrite, Urine Negative Negative 03/13/2025 8:45 AM EDT [facility] POCT Urine Leukocyte Esterase Negative Negative 03/13/2025 8:45 AM EDT [facility] Urine 03/13/2025 8:43 AM EDT 03/13/2025 8:45 AM EDT us Helene Pal APRN, BETO LAB POINT OF CAR E TEST DOCKED DEVICE UNSOLICITED RESULTS Final Result Performing Organization Address City/State/[facility] de Phone Number [facility] [address], [place] * POC US Bladder Volume (03/13/2025) Urine, Volume 12 mL IMAGING Anatomical Region Laterality Modality Other Urine 03/13/2025 us Helene Pal APRN, BETO IMG POINT OF CARE ULTRAS OUND Final Result documented in this encounter Visit Diagnoses Diagnosis Urine frequency- Primary Microhematuria Neuromuscular dysfunction of bladder, unspecified Neurogenic bladder Neurogenic bladder, NOS Retention, urine Unspecified retention of urine Difficulty voiding Other symptoms involving urinary system PFD (pelvic floor dysfunction) documented in this encounter Additional Health Concerns Assessment Noted Time A fall risk assessment has been complete d for the patient 03/13/2025 8:50 AM EDT A Body Mass Index follow-up plan has been documented for the patient 03/15/2025 12:25 PM EDT documented as of this encounter Care Teams Business Trainer Relationship Specialty Start Date End Date Ly Morales APRN [address] [place] [id number] PCP - General 12/29/22 Inocencia Hastings, PATRICIA, DNP [address] [phone] Nurse Practitioner Neurosurgery 07/11/22 documented as of this encounter
--- OUTSIDE RECORDS SUMMARY | 2025-03-24 09:14 | XMS_ITS | Encounter Summary ---
Author Organization Healthcare Address [address] [place] [address] Care Team Providers Care Distribution Designer Name Role Phone Mir Javier MD Primary Care Provider [phone] Inocencia Hastings RN TRANSFER, DNP Unavailable [phone] Ly Morales RN TRANSFER Primary Care Provider [phone] Encounter Details Date Type Department Care Team (Late st Contact Info) Description 06/09/2022 Orders Only External Location [address] [place] [address] Alex Perez MD [address] [facility] [address] [id number] Social History Tobacco Use Types Packs/Day Years [...] Info) Description 06/19/2025 8:30 AM EST Appointment [facility] Ultrasound [address] [place] [address] 06/19/2025 11:20 AM EST Office [facility] [address] [place] [address] Helene Pal APRN, BETO [address] [place] [address] documented as of this encounter Procedures Procedure [...] documented as of this encounter Care Teams Distribution Designer Relationship Specialty Start Date End Date Mir Javier MD [address] [place] [address] PCP - General 12/21/20 12/28/22 Ly Morales APRN [address] [place] [address] PCP - General 12/29/22 Inocencia Hastings APRN, BETO [address] [place] [address] Nurse Practitioner Neurosurgery 07/11/22 documented as of this encounter
--- OUTSIDE RECORDS SUMMARY | 2025-03-24 09:14 | XMS_ITS | Clinical Summary ---
Author Organization Healthcare Address [address] [address] Care Team Providers Care Shell Mold Bonder Name Role Phone Khadarluz elenaInocencia APRN, DNP Unavailable +1- [phone] Ly Morales APRN Primary Care Provider [phone]- [phone] Allergies Active Allergy Reactions Criticality Noted Date [...] you discontinue. 180 tablet 11 5 Active alpha tocopherol (Vitamin E) 400 units capsule Take 1 capsule by mouth daily. Active ALPHA LIPOIC ACID PO Take by mouth. Active bethanechol (Urecholine) 50 MG tablet Take 1 tablet by mouth 4 times a day. 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 12/05/2024 Contracture, right ankle 12/05/2024 Other acquired deformities of right foot 025 Other symptoms and signs inv olving the musculoskeletal system 12/05/2024 PFD (pelvic floor dysfunction) 11/29/2024 Neurogenic bladder 11/29/2024 Neuromuscular dysfunction of bladder, unspecifie d 11/24/2024 Abnormal results of kidney function studies 11/08 Radiculopathy, lumbar region 10/14/2024 Myopia, bilateral 10/03/2024 Intervertebral disc disorder s with myelopathy, lumbar region 09/14/2024 Cardiomegaly 09/14/2024 Contact with and (suspected) exposure to environmental tobacco smoke (acute) (chronic) 09/14/2024 Other specified polyneuropathies 09/13/2024 Localized edema [...] 03/16/2023 Nonalcoholic fatty liver 03/16/2023 Depression 02/27/2023 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 Abnormal liver function tests 09/25/2022 Pulmonary emphysema 09/25/2022 Gastro-esophageal reflux disease with esophagiti s 09/03/2022 Dizziness 04/03/2022 Tear of right acetabular labrum 09/17/2021 Overview (09/17/2021): Added automatically from request for surgery [id number] Acute pharyngitis 03/22/2021 Hip pain 11/08/2020 Injury [...] Encounters Date Type Department Care Team Description 03/13/2025 9:00 AM EDT [facility] [address] [place] [address] Helene Pal, BETO GOMEZ Urine frequency (Primary Dx); Microhematuria; Neuromuscular dysfunction of bladder, unspecified; Neurogenic bladder; Retention, urine; Difficulty voiding; PFD (pelvic floor dysfunction) 03/13/2025 Travel 03/09/2025 Travel 01/04/2025 2:00 PM EDT Office Visit [facility] Nephrology, Bone & Mineral Metabolism [address] , [address] [place] [address] Gerson Vance MD History of proteinuria syndrome (Primary Dx); Retention, urine; Stage 3a chronic kidney disease ([facility]/HCC) 01/04/2025 Travel 12/29/2024 Telephone [facility] Nephrology, Bone & Mineral Metabolism [address] , [address] [place] [address] Hillary Ruiz from Last 3 [...] Mass Index 35.89 03/13/2025 8:46 AM EDT Plan of Treatment Upcoming Encounters Date Type Department Care Team (Late st Contact Info) Description 06/19/2025 8:30 AM EST Appointment [facility] Ultrasound [address] [place] [address] 06/19/2025 11:20 AM EST Office Visit [place] [facility] [address] [place] [address] Helene Pal, ELECTRICAL TECH/PROJECT MANAGER, DNP [address] [place] [address] Health Maintenance Due Date Last Done Comments [facility]-HIV Screening 1987 [facility]-Hepatitis C Screening 1987 [facility]-Medicare Annual Wellness (AWV) 1987 [facility]-/Child/Adol SDOH Screenings 1987 [facility]-Varicella Vaccines (1 of 2 - 13+ 2-dose series) 12/08/2000 [facility]- SDOH Screenings 12/08/2005 [facility]-Adult SDOH Screenings 12/08/2005 HPV Vaccines (1 - 3-dose SCDM series) 12/08/2014 [facility]-Hepatitis B Vaccines (3 of 3 - 3-dose series) 12/11/2022 10/16/2022, 07/15/2001 [facility]-Hepatitis A Vaccines (2 of 2 - Risk 2-dose series) 04/18/2023 10/16/2022, 07/27/2018 [id number] Vaccine (4 - season) 2024 10/02/2022, 05/09/2021, 04/10/2021 [facility]-Influenza Vaccine (#1) 04/10/202504/15, 05/19/2023, 05/22/2022, Additional history exists [facility]-Depression Screening 03/13/2026 03/13/2025 [facility]-DTaP,Tdap,and Td Vaccines (3 - Td or Tdap) 10/18/2031 10/17/2021, 01/13/2005 [facility]-Zoster Vaccines (1 of 2) 12/08/2037 [facility]-Pneumococcal Vaccine: Pediatrics (0 to 5 Years) and At-Risk Patients (6 to 49 Years) Completed 10/16/2022, 06/18/2010 [facility]-Obesity Intervention Completed 025, 11/24/2024, 07/04/2024, Additional history exists [facility]-HIB Vaccines Aged Out No longer e ligible based on patient's age to complete this topic [facility]-IPV Vaccines Aged Out No longer e ligible based on patient's age to complete this topic [facility]-Rotavirus Vaccines Aged Out No lo nger eligible based on patient's age to complete this topic Medical Devices Implanted Type Area Estate Planner Device Identifier Shelf Expiration Date Model / Serial / Lot Scs Lead- 9 Implanted:Qty: 2 on 07/27/2019 Lead Back Medtronic [id number] / / Medtronic Spinal Cord Stimulator- Implanted:07/10 (Quantity not on file) Spinal Cord Stimulator Back Medtronic [id number] / [id number] / Description:LEAD MODEL: [id number], qty 2 Procedures Procedure Name Priority Date/Time Associated Diagnosis Comments URINALYSIS, MICROSCOPIC Routine 03/13/2025 10:05 AM EDT Microhematuria URINE CULTURE Routine 03/13/2025 10:05 AM EDT Microhematuria POCT URINALYSIS DIPSTICK Routine 03/13/2025 8:43 AM EDT POC US BLADDER SCAN FOR VOLUME Routine 03/13/2025 Urine frequency RENAL FUNCTION PANEL, PLASMA Routine 01/04/2025 2:39 [...] syndrome from Last 3 Months Results * Urinalysis, Microscopic (03/13/2025 10:05 AM EDT) RBC, Urine <1 0 to 3 /HPF LAB URINALYSIS - AUTOMATED METHOD 03/13/2025 12:19 PM EDT [facility] WBC, Urine 0 - 5 0 to 5 /HPF LAB URINALYSIS - AUTOMATED METHOD 03/13/2025 12:19 PM EDT [facility] Squamous Epithelial Cells 0 - 2 0 to 5 /HPF LAB URINALYSIS - AUTOMATED METHOD 03/13/2025 12:19 PM EDT [facility] Hyaline Casts 0 - 2 0 to 5 /LPF LAB URINALYSIS - AUTOMATED METHOD 03/13/2025 12:19 PM EDT [facility] Bacteria, Urine Negative Negative LAB URINALYSIS - AUTOMATED METHOD 03/13/2025 12:19 PM EDT [facility] Urine Urine specimen obtained by clean catch procedure / Unknown Non-blood Collection / Unknown 03/13/2025 10:05 AM EDT 03/13/2025 10:21 AM EDT Helene Pal APRN, BETO LAB URINE ORDERABLES Fin al Result Performing Organization Address [facility]/ZIP Co de Phone Number [facility] [address] [place] [address] * Urine Culture (03/13/2025 10:05 AM EDT) Culture <10,000 CFU/mL Mixed urogenital, fecal, or skin mohan present. 03/14/2025 10:36 AM EDT [facility] Urine Urine specimen obtained by clean catch procedure / Unknown Non-blood Collection / Unknown 03/13/2025 10:05 AM EDT 03/13/2025 10:21 AM EDT Helene Pal APRN, DNP LAB MICROBIOLOGY - GENER AL ORDERABLES Final Result Performing Organization Address City/[facility]/ZIP Co de Phone Number [facility] [address] [place] [address] * (ABNORMAL) POCT URINALYSIS DIPSTICK (03/13/2025 8:43 AM EDT) POCT Urine Color Yellow 03/13/2025 8:45 AM EDT [facility] POCT Urine Clarity Clear 03/13/2025 8:45 AM EDT [facility] POCT Urine Glucose >=1000(A) Negative mg/dL 03/13/2025 8:45 AM EDT [facility] POCT Urine Bilirubin Negative Negative mg/dL 03/13/2025 8:45 AM EDT [facility] POCT Urine Ketones Negative Negative mg/dL 03/13/2025 8:45 AM EDT [facility] POCT Urine Specific [place] 1.010 1.005 - 1.030 03/13/2025 8:45 AM EDT [facility] POCT Urine Blood Trace(A) Negative 03/13/2025 8:45 AM EDT [facility] POCT pH, Urine 7.0 5.0 - 8.0 03/13/2025 8:45 AM EDT [facility] POCT Protein, Urine Negative Negative mg/dL 03/13/2025 8:45 AM EDT [facility] POCT Urobilinogen, Urine 0.2 0.2, 1.0 EU/dL 03/13/2025 8:45 AM EDT [facility] POCT Nitrite, Urine Negative Negative 03/13/2025 8:45 AM EDT [facility] POCT Urine Leukocyte Esterase Negative Negative 03/13/2025 8:45 AM EDT [facility] Urine 03/13/2025 8:43 AM EDT 03/13/2025 8:45 AM EDT us Helene Pal APRN, BETO LAB POINT OF CAR E TEST DOCKED DEVICE UNSOLICITED RESULTS Final Result Performing Organization Address City/State/[facility] Co de Phone Number [facility] [address], [place] * POC US Bladder Volume (03/13/2025) Urine, Volume 12 mL IMAGING Anatomical Region Laterality Modality Other Urine 03/13/2025 us Helene Pal APRN, BETO IMG POINT OF CARE ULTRAS OUND Final Result * Vitamin D 25 Hydroxy (01/04/2025 2:39 PM EDT) Vitamin D 25 Hydroxy 22.2 20.0 - 80.0 ng/mL 01/04/2025 6:55 PM EDT [facility] Blood Venous blood specimen / Unknown Venipuncture / Unknown 01/04/2025 2:39 PM EDT 01/04/2025 2:39 PM EDT Narrative [facility] - 01/04/2025 6:55 PM EDT Testing performed on Jack Transplant Immunologist, standardized against NIST SRM 2972. When testing [...] MD LAB BLOOD ORDERABLES Final Resul t [facility] [address] [place] [address] * (ABNORMAL) CBC and Differential (01/04/2025 2:39 PM EDT) WBC Count 7.75 3.70 - 10.30 10*3/uL LAB HEMATOLOGY METHOD 01/04/2025 5:27 PM EDT [facility] RBC Count 4.93 4.60 - 6.10 10*6/uL LAB HEMATOLOGY METHOD 01/04/2025 5:27 PM EDT [facility] HGB 14.4 13.7 - 17.5 g/dL LAB HEMATOLOGY METHOD 01/04/2025 5:27 PM EDT [facility] HCT 44.0 40.0 - 51.0 % LAB HEMATOLOGY METHOD 01/04/2025 5:27 PM EDT [facility] Platelet Count 292 155 - 369 10*3/uL LAB HEMATOLOGY METHOD 01/04/2025 5:27 PM EDT [facility] MCV 89 79 - 98 fL LAB HEMATOLOGY METHOD 01/04/2025 5:27 PM EDT [facility] MCH 29.2 26.0 - 32.0 pg LAB HEMATOLOGY METHOD 01/04/2025 5:27 PM EDT [facility] MCHC 32.7 30.7 - 35.5 g/dL LAB HEMATOLOGY METHOD 01/04/2025 5:27 PM EDT [facility] RDW 14.6(H) 11.5 - 14.5 % LAB HEMATOLOGY METHOD 01/04/2025 5:27 PM EDT [facility] MPV 9.9 8.8 - 12.5 fL LAB HEMATOLOGY METHOD 01/04/2025 5:27 PM EDT [facility] nRBC 0.0 <=0.0 per 100 WBCs LAB HEMATOLOGY METHOD 01/04/2025 5:27 PM EDT [facility] Differential Type Automated LAB HEMATOLOGY METHOD 01/04/2025 5:27 PM EDT [facility] Neutrophils % 57 % LAB HEMATOLOGY METHOD 01/04/2025 5:27 PM EDT [facility] Lymphocytes % 27 % LAB HEMATOLOGY METHOD 01/04/2025 5:27 PM EDT [facility] Monocytes % 9 % LAB HEMATOLOGY METHOD 01/04/2025 5:27 PM EDT [facility] Eosinophils % 5 % LAB HEMATOLOGY METHOD 01/04/2025 5:27 PM EDT [facility] Basophils % 1 % LAB HEMATOLOGY METHOD 01/04/2025 5:27 PM EDT [facility] Immature Granulocytes % 1 % LAB HEMATOLOGY METHOD 01/04/2025 5:27 PM EDT [facility] Neutrophils Absolute 4.49 1.60 - 6.10 10*3/uL LAB HEMATOLOGY METHOD 01/04/2025 5:27 PM EDT [facility] Lymphocytes Absolute 2.06 1.20 - 3.90 10*3/uL LAB HEMATOLOGY METHOD 01/04/2025 5:27 PM EDT [facility] Monocytes Absolute 0.70 0.30 - 0.90 10*3/uL LAB HEMATOLOGY METHOD 01/04/2025 5:27 PM EDT [facility] Eosinophils Absolute 0.40 0.00 - 0.50 10*3/uL LAB HEMATOLOGY METHOD 01/04/2025 5:27 PM EDT [facility] Basophils Absolute 0.04 0.00 - 0.10 10*3/uL LAB HEMATOLOGY METHOD 01/04/2025 5:27 PM EDT [facility] Immature Granulocytes Absolute 0.06 0.00 - 0.06 10*3/uL LAB HEMATOLOGY METHOD 01/04/2025 5:27 PM EDT [facility] Blood Venous blood specimen / Unknown Venipuncture / Unknown 01/04/2025 2:39 PM EDT 01/04/2025 2:39 PM EDT Narrative [facility] - 01/04/2025 5:27 PM EDT Therapeutic decision making should be based on absolute values, rather than percentages. us Gerson Vance MD LAB BLOOD ORDERABLES Final Resul t [facility] [address] [place] [address] * (ABNORMAL) Renal Function Panel, Plasma (01/04/2025 2:39 PM EDT) Glucose, Plasma 121(H) 74 - 99 mg/dL 01/04/2025 5:47 PM EDT [facility] BUN, Plasma 8 7 - 21 mg/dL 01/04/2025 5:47 PM EDT [facility] Creatinine, Plasma 1.07 0.70 - 1.20 mg/dL 01/04/2025 5:47 PM EDT [facility] BUN/Creatinine Ratio 7 01/04/2025 5:47 PM EDT [facility] Sodium, Plasma 141 136 - 145 mmol/L 01/04/2025 5:47 PM EDT [facility] Potassium, Plasma 4.0 3.6 - 4.9 mmol/L 01/04/2025 5:47 PM EDT [facility] Chloride, Plasma 105 97 - 107 mmol/L 01/04/2025 5:47 PM EDT [facility] CO2, Plasma 23 22 - 29 mmol/L 01/04/2025 5:47 PM EDT [facility] Anion Gap 13 6 - 16 mmol/L 01/04/2025 5:47 PM EDT [facility] Total Calcium, Plasma 9.2 8.9 - 10.2 mg/dL 01/04/2025 5:47 PM EDT [facility] Phosphorus, Plasma 4.0 2.5 - 4.5 mg/dL 01/04/2025 5:47 PM EDT [facility] Albumin, Plasma 4.6 3.5 - 5.2 g/dL 01/04/2025 5:47 PM EDT [facility] eGFRcr 91.7 mL/min/1.7 3m*2 01/04/2025 5:47 PM EDT [facility] Comment:Reported eGFRcr in m L/min/1.73m2 is based the CKD-EPI 2020 equation that does not use a race coefficient. Blood Venous blood specimen / Unknown Venipuncture / Unknown 01/04/2025 2:39 PM EDT 01/04/2025 2:39 PM EDT us Gerson Vance MD LAB BLOOD ORDERABLES Final Resul t Performing Organization Address [facility] de Phone Number [facility] [address] [place] [address] * Urinalysis Microscopic Examination (01/04/2025 2:32 PM EDT) Urine Urine specimen obtained by clean catch procedure / Unknown Non-blood Collection / Unknown 01/04/2025 2:32 PM EDT 01/04/2025 2:34 PM EDT us Gerson Vance MD LAB URINE ORDERABLES Final Resul t Performing Organization Address [facility] de Phone Number [facility] [address] [place] [address] * Albumin-creatinine ratio, urine, random (01/04/2025 2:32 PM EDT) Microalbumin, Urine <1.2 <1.9 mg/dL 01/04/2025 6:09 PM EDT [facility] Creatinine, Urine 215 mg/dL 01/04/2025 6:09 PM EDT [facility] Albumin/Creatin ine Ratio 01/04/2025 6:09 PM EDT [facility] Comment:Unable to calculate, at least one value is above or below the detection limit. Urine Urine specimen obtained by clean catch procedure / Unknown Non-blood Collection / Unknown 01/04/2025 2:32 PM EDT 01/04/2025 2:34 PM EDT us Gerson Vance MD LAB URINE ORDERABLES Final Resul t Performing Organization Address City/[facility] Co de Phone Number [facility] [address] [place] [address] * Protein, Random, Urine with Creatinine (01/04/2025 2:32 PM EDT) Protein, Urine 10 mg/dL 01/04/2025 5:44 PM EDT [facility] Creatinine, Urine 209 mg/dL 01/04/2025 5:44 PM EDT [facility] Protein/Creati nine Ratio 0.0 mg/mg Creat 01/04/2025 5:44 PM EDT [facility] Urine Urine specimen obtained by clean catch procedure / Unknown Non-blood Collection / Unknown 01/04/2025 2:32 PM EDT 01/04/2025 2:34 PM EDT Gerson Vance MD LAB URINE ORDERABLES Final Resul t [facility] [address] [place] [address] * (ABNORMAL) Urinalysis with reflex microscopic (Culture NOT Included) (01/04/2025 2:32 PM EDT) Color, Urine Yellow LAB URINALYSIS - AUTOMATED METHOD 01/04/2025 6:07 PM EDT [facility] Clarity, Urine Clear LAB URINALYSIS - AUTOMATED METHOD 01/04/2025 6:07 PM EDT [facility] Spec [place], Urine 1.020 1.005 - 1.030 LAB URINALYSIS - AUTOMATED METHOD 01/04/2025 6:07 PM EDT [facility] pH, Urine 5.5 5.0 - 8.0 LAB URINALYSIS - AUTOMATED METHOD 01/04/2025 6:07 PM EDT [facility] Protein, Urine Negative Negative mg/dL LAB URINALYSIS - AUTOMATED METHOD 01/04/2025 6:07 PM EDT [facility] Glucose, Urine Negative Negative mg/dL LAB URINALYSIS - AUTOMATED METHOD 01/04/2025 6:07 PM EDT [facility] Ketones, Urine Trace(A) Negative mg/dL LAB URINALYSIS - AUTOMATED METHOD 01/04/2025 6:07 PM EDT [facility] Blood, Urine Trace(A) Negative LAB URINALYSIS - AUTOMATED METHOD 01/04/2025 6:07 PM EDT [facility] Bilirubin, Urine Negative Negative LAB URINALYSIS - AUTOMATED METHOD 01/04/2025 6:07 PM EDT [facility] Urobilinogen, Urine 1.0 0.2 to 1.0 mg/dL LAB URINALYSIS - AUTOMATED METHOD 01/04/2025 6:07 PM EDT [facility] Leukocytes, Urine Negative Negative LAB URINALYSIS - AUTOMATED METHOD 01/04/2025 6:07 PM EDT [facility] Nitrite, Urine Negative Negative LAB URINALYSIS - AUTOMATED METHOD 01/04/2025 6:07 PM EDT [facility] RBC, Urine 4 - 10(A) 0 to 3 /HPF 01/04/2025 6:07 PM EDT [facility] Comment:This result was prev iously suppressed from the chart. WBC, Urine 0 - 5 0 to 5 /HPF 01/04/2025 6:07 PM EDT [facility] Comment:This result was prev iously suppressed from the chart. Squamous Epithelial Cells 0 - 2 0 to 5 /HPF 01/04/2025 6:07 PM EDT [facility] Comment:This result was prev iously suppressed from the chart. Hyaline Casts 0 - 2 0 to 5 /LPF 01/04/2025 6:07 PM EDT [facility] Comment:This result was prev iously suppressed from the chart. Bacteria, Urine Negative Negative 01/04/2025 6:07 PM EDT [facility] Comment:This result was prev iously suppressed from the chart. Urine Urine specimen obtained by clean catch procedure / Unknown Non-blood Collection / Unknown 01/04/2025 2:32 PM EDT 01/04/2025 2:34 PM EDT Narrative [facility] - 01/04/2025 6:07 PM EDT Performed by manual method us Gerson Vance MD LAB URINE ORDERABLES Final Resul t Performing Organization Address City/State/[facility] de Phone Number [facility] [address] [place] [address] from Last 3 Months Insurance MEDICARE Care Teams Shell Mold Bonder Relationship Specialty Start Date End Date Ly Morales APRN [address] [id number] PCP - General 12/29/22 Inocencia Hastings APRN, DNP [address] [facility] [address] [place] [address] Nurse Practitioner Neurosurgery 07/11/22
--- OUTSIDE RECORDS SUMMARY | 2025-03-24 09:14 | XMS_ITS | Encounter Summary ---
Author Organization Healthcare Address [address] [place] [address] Care Team Providers Care Manager Acquisition Name Role Phone Khadarluz elena Inocencia Powers APRN, DNP Unavailable [phone] Ly Morales SURGICAL COORDINATOR Primary Care Provider [phone]- [phone] Encounter Details Date Type Department Care Team (Latest Contact Info) Description 03/09/2025 Travel Social History Tobacco Use Types Packs/Day [...] Info) Description 06/19/2025 8:30 AM EST Appointment [facility] Ultrasound [address] [place] [address] 06/19/2025 11:20 AM EST Office [facility] [address], [address] [place] [address] Helene Pal, SURGICAL COORDINATOR, DNP [address] [place] [address] documented as of this encounter Visit Diagnoses Not on filedocumented in this encounter Additional Health Concerns Assessment Noted Time A fall risk assessment has been complete d for the patient 01/04/2025 1:51 PM EDT A Body Mass Index follow-up plan has been documented for the patient 11/29/2024 11:25 AM EDT documented as of this encounter Care Teams Manager Acquisition Relationship Specialty Start Date End Date Ly Morales APRN [address] [place] [address] PCP - General 12/29/22 Inocencia Hastings APRN, DNP [address] [facility] [address] [place] [address] Nurse Practitioner Neurosurgery 07/11/22 documented as of this encounter
--- OUTSIDE RECORDS SUMMARY | 2025-03-24 09:14 | XMS_ITS | Encounter Summary ---
Author Organization Healthcare Address [address] [place] [address] Care Team Providers Care Record Center Coordinator Name Role Phone Mir Javier MD Primary Care Provider [phone] Inocencia Hastings STRAIGHTEDGE MACHINE OPERATOR HELPER, DNP Unavailable [phone] Ly Morales STRAIGHTEDGE MACHINE OPERATOR HELPER Primary Care Provider [phone]- [phone] Encounter Details Date Type Department Care Team (Late st Contact Info) Description 06/24/2022 Orders Only External Location [address] [place] [address] Dimple Soliz, STRAIGHTEDGE MACHINE OPERATOR HELPER [address] [facility] [address] [address] Social History Tobacco Use Types Packs/Day [...] Info) Description 06/19/2025 8:30 AM EST Appointment [facility] Ultrasound [address] [place] [address] 06/19/2025 11:20 AM EST Office Visit [place] [facility] [address] [place] [address] Helene Pal APRN, DNP [address] [place] [address] documented as of this encounter Procedures Procedure Name Priority Date/Time Associated Diagnosis Comments US OUTSIDE IMAGES 06/24/2022 1:57 PM EST documented in this encounter Results * US OUTSIDE IMAGES (06/24/2022 1:57 PM EST) Anatomical Region Laterality Modality Ultrasound 06/24/2022 1:57 PM EST us Dimple Soliz APRN IMG US PROCEDURES Elicia l Result documented in this encounter Visit Diagnoses Not on filedocumented in this encounter Additional Health Concerns Assessment Noted Time A fall risk assessment has been complete d for the patient 12/12/2021 2:44 PM EDT documented as of this encounter Care Teams Record Center Coordinator Relationship Specialty Start Date End Date Mir Javier MD [address] [place] [address] PCP - General 12/21/20 12/28/22 Ly Morales APRN [address] [place] [address] PCP - General 12/29/22 Inocencia Hastings APRN, BETO [address] [place] [address] Nurse Practitioner Neurosurgery 07/11/22 documented as of this encounter
--- OUTSIDE RECORDS SUMMARY | 2025-03-24 09:14 | XMS_ITS | Clinical Summary ---
[facility] Address [address] [place] [address] Care Team Providers Care Ux Information Architect Name Role Phone Ly Morales STOCKROOM HELPER Primary Care Provider [phone] Social History Tobacco Use Types Packs/Day Years [...] Pneumococcal Vaccine 0-49 Completed 10/16/2022, 04/2010 Insurance [facility] Care Teams Ux Information Architect Relationship Specialty Start Date End Date Ly Morales APRN [address] [place] [address] [place] [address] [place] [address] PCP - General Family Medicine 11/03/23
--- OUTSIDE RECORDS SUMMARY | 2025-03-24 09:14 | XMS_ITS | Encounter Summary ---
Author Organization Healthcare Address [address] [place] [address] Care Team Providers Care Oil Pump Station Operator Chief Name Role Phone Khadarluz elenaInocencia APRN, DNP Unavailable +1- [phone] Ly Morales APRN Primary Care Provider [phone]- [phone] Encounter Details Date Type Department Care Team (Latest Contact Info) Description 03/13/2025 Travel Social History Tobacco Use Types Packs/Day [...] PM EDT documented as of this encounter Functional Status * Over the [...] Norris LPN documented as of this encounter Plan of Treatment Upcoming Encounters Date Type Department Care Team (Late st Contact Info) Description 06/19/2025 8:30 AM EST Appointment [facility] Ultrasound [address] [place] [address] 06/19/2025 11:20 AM EST Office Visit [facility] [address] [place] [address] Helene Pal APRN, BETO [address] [place] [address] documented as of this encounter Visit Diagnoses Not on filedocumented in this encounter Additional Health Concerns Assessment Noted Time A fall risk assessment has been complete d for the patient 03/13/2025 8:50 AM EDT A Body Mass Index follow-up plan has been documented for the patient 03/15/2025 12:25 PM EDT documented as of this encounter Care Teams Oil Pump Station Operator Chief Relationship Specialty Start Date End Date Ly Morales APRN [address] [place] [id number] PCP - General 12/29/22 Inocencia Hastings APRN, BETO [address] [place] [id number] Nurse Practitioner Neurosurgery 07/11/22 documented as of this encounter
[2025-03-24 09:34] LABS: Blood Urea Nitrogen 12 mg/dl (9-20); Creatinine,Serum 1.20 mg/dl (0.66-1.25); Estimated Glomerular Filt Rate 68 ml/min (>60); GFR (African American) 82 ML/MIN (>60)
--- NOTE | 2025-03-24 10:15 | CT_ITS ---
FINAL REPORT TECHNIQUE: Thin section axial images were obtained of the right foot before and after the administration of IV contrast. Coronal and sagittal images were obtained and reviewed. This study was performed with techniques to keep radiation doses as low as reasonably achievable, (ALARA). Individualized dose reduction techniques using automated exposure control or adjustment of mA and/or kV according to the patient's size were employed. CLINICAL HISTORY: Evaluation of Pain in Right Foot no injury/ no surgery COMPARISON: None FINDINGS: There is no evidence of fracture. There are few tiny bone islands in the hindfoot structures. The joints are unremarkable. No soft tissue abnormalities. IMPRESSION: Unremarkable exam. Reviewed, Interpreted and Dictated by William Carnes MD Transcribed by Keila Anaya Authenticated and [facility]
[2025-03-24] MEDS: SODIUM CHLORIDE 0.9% 10ML SYR (RAD ONLY) 10 ML IV (10:20)
[2025-03-24] MEDS: IOPAMIDOL-370 (76%);100ML BOTTLE 75 ML IV (10:20)
== END 2025-03-24 23:59 | disposition home or self-care (01) ==
LOC: RAD 09:12
PROVIDERS: PCP Nurse Practitioner Family; Visit Provider Nurse Practitioner
DX: M72.2 Plantar fascial fibromatosis (principal); M79.671 Pain in right foot; R60.0 Localized edema
CPT/HCPCS: 36415; 73702; 82565; 84520; Q9967

== ENCOUNTER 2025-07-26 10:06 | Outpatient (CLI) | payer MEDICARE, SELFPAY ==
--- OUTSIDE RECORDS SUMMARY | 2025-06-19 07:53 | XMS_ITS | Encounter Summary ---
Author Organization [facility] Address [address] [place] [address] Care Team Providers Care Delivery Driver Name Role Phone Inocencia Hastings APRN, BETO Unavailable [phone]- [phone] Ly Morales APRN Primary Care Provider [phone]- [phone] Reason for Referral * Imaging (Routine) - Closed Specialty Diagnoses / Procedures Referred By Faustino bailey Referred To Contact Radiology Diagnoses Neuromuscular dysfunction of bladder, unspecified Procedures US Renal Complete Helene Pal APRN, BETO [address] [address] Phone: tel: fax: Referral ID Status Reason Start Date Expiration Date Visits Re quested Visits Authorized [id number] Closed 03/13/2025 09/12/2026 1 1 Reason for Visit * Imaging (Routine) - Closed Specialty Diagnoses / Procedures Referred By Faustino bailey Referred To Contact Radiology Diagnoses Neuromuscular dysfunction of bladder, unspecified Procedures US Renal Complete Helene Pal APRN, DNP [address] [address] Phone: tel: fax: Referral ID Status Reason Start Date Expiration Date Visits Re quested Visits Authorized [id number] Closed 03/13/2025 09/12/2026 1 1 Encounter Details Date Type Department Care Team (Latest Contact Info) Description 06/19/2025 7:53 AM EST - 06/19/2025 11:59 PM EST Hospital Encounter [facility] Ultrasound [address] [place] [address] Neuromuscular dysfunction of bladder, unspecified Discharge Disposition: Home or Self Care Social History Tobacco Use Types Packs/Day Years Used Date Smoking Tobacco: Never Smokeless Tobacco: Never Alcohol Use Standard Drinks/Week Comments Never 0 (1 standard drink = 0.6 oz pur e alcohol) PHQ-2 Answer Date Recorded Patient Health Questionnaire-2 Score 0 06/20/2025 Sex and Gender Information Value Date Recorded [...] pleasure in doing things Not at all 06/20/2025 1:19 PM Serina Fontenot LPN Feeling down, depressed, or hopeless Not at all 06/20/2025 1:19 PM Serina Fontenot LPN Patient Health Questionnaire -2 Score 0 06/20/2025 1:19 PM Serina Fontenot LPN * How difficult have these problems made it for you to do your work, take care of things at home, or get along with other people? Answer Date of Assessment Author Not difficult at all 06/20/2025 1:19 PM Serina Downing LPN documented as of this encounter Medications at Time of Discharge ALPHA LIPOIC ACID PO Take by mouth. alpha tocopherol (Vitamin E) 400 units capsule Take 1 capsule by mouth daily. busPIRone (Buspar) 5 MG tablet TAKE ONE TABLET BY MOUTH THREE TIMES DAILY DIRECTED 05/04/2023 DULoxetine (Cymbalta) [address] capsule TAKE ONE CAPSULE BY MOUTH EVERY DAY IN THE MORNING DIRECTED 05/04/2023 famotidine (Pepcid) 40 MG tablet Take 1 tablet (40 mg) by mouth 1 (one) time each day. 01/15/2021 Farxiga 5 MG tablet Take 1 tablet by mouth daily. 05/09/2025 meloxicam (Mobic) 7.5 MG tablet TAKE 1 TABLET BY MOUTH EVERY DAY FOR PAIN 06/09/2025 metoprolol succinate XL (Toprol-XL) 25 MG 24 hr tablet 1 tablet (25 mg). 09/03/2023 Multiple Vitamin (MULTI VITAMIN MENS PO) Take by mouth 1 (one) time each day. 06/01/2017 ondansetron ODT (Zofran-ODT) 4 MG disintegrating tablet DISSOLVE ONE TABLET BY MOUTH EVERY 8 HOURS NEEDED FOR NAUSEA AND VOMITING 04/20/2023 OXcarbazepine (Trileptal) 600 MG tablet TAKE ONE (1) TABLET BY MOUTH TWICE A DAY FOR MOOD. 06/09/2025 pantoprazole (Protonix) 40 MG EC tablet 2 (two) times a day. polyethylene glycol (Miralax) 17 GM/SCOOP powder DISSOLVE 17 GRAMS OF POWDER INTO 4 TO 8 OUNCES OF WATER, JUICE, SODA, COFFEE, OR TEA THEN DRINK EVERY DAY 03/16/2023 QUEtiapine (SEROquel) 100 MG tablet Take 1 tablet (100 mg) by mouth every night. rivaroxaban (Xarelto) 10 MG tablet 2 tablets (20 mg). 06/23/2024 sacubitril-valsartan (Entresto) 49-51 MG tablet Take 1 tablet by mouth 2 times a day. 07/21/2023 baclofen (Lioresal) 10 MG tablet Start by taking 1 pill by mouth at bedtime, slowly increase up to 1 pill 2x/day, with a maximum of 2 pills 3x/day as needed/tolerat ed. Do not stop abruptly, slowly wean if you discontinue. 180 tablet 11/24/2024 bethanechol (Urecholine) 50 MG tablet Take 1 tablet by mouth 4 times a day. 120 tablet 03/13/2025 oxybutynin XL (Ditropan-XL) 10 MG 24 hr tablet Take 1 tablet by mouth daily. 03/29/2025 tamsulosin (Flomax) 0.4 MG 24 hr capsule 1 capsule (0.4 mg). PRN 04/18/2024 documented as of this encounter Plan of Treatment Upcoming Encounters Date Type Department Care Team (Late st Contact Info) Description 06/20/2026 8:45 AM EST Appointment [facility] [address] [place] [address] 06/20/2026 9:50 AM EST Clinical Support [facility] [address] [place] [address] 06/20/2026 11:00 AM EST Office Visit [facility] [address] [place] [address] Helene Pal, STAND UP COMEDIAN, DNP [address] [place] [address] documented as of this encounter Procedures Procedure Name Priority Date/Time Associated Diagnosis Comments US RENAL COMPLETE Routine 06/19/2025 8:5 4 AM EST Neuromuscular dysfunction of bladder, unspecified documented in this encounter Results * US Renal Complete (06/19/2025 8:54 AM EST) Anatomical Region Laterality Modality Kidney Ultrasound Impressions 06/19/2025 9:16 AM EST No hydronephrosis CRITICAL RESULT: No. COMMUNICATION: Per this written report. Drafted by Alexander Elkins MD on 06/19/2025 9:16 AM Final report signed by Alexander Elkins MD on 06/19/2025 9:16 AM Narrative 06/19/2025 9:16 AM EST CLINICAL INDICATION: NGB TECHNIQUE: Multiplanar static and cine booth scale ultrasound images of the kidneys and urinary bladder were obtained, accompanied by selective color Doppler ultrasound images. COMPARISON: 2 slurred 28/01/2024 FINDINGS: Right Kidney: Normal renal cortical echogenicity. Length 11.5 cm. No hydronephrosis, obvious calculi or discernible mass. Left Kidney: Normal renal cortical echogenicity. Length 12.7 cm. No hydronephrosis, obvious calculi or discernible mass. Urinary bladder: Within normal limits. Procedure Note Alexander Elkins MD - 06/19/2025 CLINICAL INDICATION: NGB TECHNIQUE: Multiplanar static and cine booth scale ultrasound images of the kidneysand urinary bladder were obtained, accompanied by selective color Dopplerultrasound images. COMPARISON: 2 slurred 28/01/2024 FINDINGS: Right Kidney: Normal renal cortical echogenicity. Length 11.5 cm. Nohydronephrosis, obvious calculi or discernible mass. Left Kidney: Normal renal cortical echogenicity. Length 12.7 cm. Nohydronephrosis, obvious calculi or discernible mass. Urinary bladder: Within normal limits. IMPRESSION: No hydronephrosis CRITICAL RESULT: No. COMMUNICATION: Per this written report. Drafted by Alexander Elkins MD on 06/19/2025 9:16 AM Final report signed by Alexander Elkins MD on 06/19/2025 9:16 AM us Helene Pal APRN, BETO IM US PROCEDURES Final Result documented in this encounter Visit Diagnoses Diagnosis Neuromuscular dysfunction of bladder, unspecified documented in this encounter Additional Health Concerns Assessment Noted Time A fall risk assessment has been complete d for the patient 03/13/2025 8:50 AM EDT A Body Mass Index follow-up plan has been documented for the patient 03/15/2025 12:25 PM EDT documented as of this encounter Care Teams Delivery Driver Relationship Specialty Start Date End Date Ly Morales APRN [address] [place] [address] PCP - General 12/29/22 Inocencia Hastings APRN, BETO [address] [facility] [address] [place] [address] Nurse Practitioner Neurosurgery 07/11/22 documented as of this encounter
--- OUTSIDE RECORDS SUMMARY | 2025-06-20 14:40 | XMS_ITS | Encounter Summary ---
Author Organization Healthcare Address [address] [place] [address] Care Team Providers Care Parts Salesperson Name Role Phone Khadarluz elenaInocencia APRN, BETO Unavailable [phone] Ly Morales APRN Primary Care Provider [phone] Helene Pal APRN, BETO Unavailable [phone] Reason for Referral * Imaging (Routine) - Authorized Specialty Diagnoses / Procedures Referred By Contac t Referred To Contact Radiology Diagnoses Neurogenic bladder Procedures US Renal Complete Helene Pal APRN, BETO [address] [facility] [address] [place] [address] Phone: tel: fax: Referral ID Status Reason Start Date Expiration Date V isits Requested Visits Authorized [id number] Authorized 06/20/2025 12/20/2026 1 1 Reason for Visit * Reason Comments Follow-up Encounter Details Date Type Department Care Team (Late st Contact Info) Description 06/20/2025 2:40 PM EST Office Visit [facility] [address], [address] [place] [address] Helene Pal APRN, DNP [address] [place] [address] Urine frequency (Primary Dx); Neurogenic bladder; Retention, urine; Difficulty voiding; PFD [...] Sign Reading Time Taken Comments Blood Pressure 140/84 06/20/2025 1:19 PM EST Pulse 85 06/20/2025 1:19 PM EST Temperature - - Respiratory Rate - - Oxygen Saturation - - Inhaled Oxygen Concentration - - Weight 123 kg (272 lb) 06/20/2025 1:19 PM EST Height 185.4 cm (6' 1 ) 06/20/2025 1:19 PM EST Body Mass Index 35.89 06/20/2025 1:19 PM EST documented in this encounter Functional Status * Over the past 2 weeks, how often have you been bothered by any of the following problems? Question Answer Date of Assessment Author Little interest or pleasure in doing things Not at all 06/20/2025 1:19 PM EST Serina Wells LPN Feeling down, depressed, or hopeless Not at all 06/20/2025 1:19 PM EST Serina Wells LPN Patient Health Questionnaire -2 Score 0 06/20/2025 1:19 PM EST Serina Wells LPN * How difficult have these problems made it for you to do your work, take care of things at home, or get along with other people? Answer Date of Assessment Author Not difficult at all 06/20/2025 1:19 PM EST Serina Steinberg LPN documented as of this encounter Miscellaneous Notes * Progress Notes - Helene Pal APRN - 06/20/2025 2:40 PM EST [facility] Note CC: Follow-up History of Present Illness The patient, a male, presents for evaluation of urinary retention. He was initially evaluated in June 2024 for a several-year history of urinary urgency without successful voiding, dysuria, and straining to void. His fluid intake includes 4 to 5 bottles of water and 2 glasses of tea daily. He recalled being denied entry in high school due to proteinuria, which was never further investigated. His medical history is significant for degenerative disc disease (DDD), prior discectomy, pain pump placement, and spinal stimulator implantation for chronic back pain and right lower extremity (RLE) neuropathy/radiculopathy. Additionally, he has atrial fibrillation with a history of three transient ischemic attacks (TIA), alpha-1 antitrypsin (A1AT) deficiency, cardiomyopathy, and emphysema. He was prescribed baclofen 5 mg three times daily without aspirin. In March 2024, Dr. Matias prescribed oxybutynin and tamsulosin (Flomax) without noted improvement. Urinary Retention - Initially evaluated in June 2024 for a several-year history of urinary urgency without successful voiding, dysuria, and straining to void. - March 2024, prescribed oxybutynin and tamsulosin (Flomax) by outside urologist without noted improvement. - July 2024, LIZETH revealed no hydronephrosis or nephrolithiasis bilaterally, a mildly distended bladder with a post-void residual (PVR) of 122 mL, and increased hepatic echogenicity suggestive of steatosis. - November 2024, UDS indicated a neurogenic bladder with voiding only achievable through straining, without stress urinary incontinence (JM). The abdominal catheter malfunctioned, preventing accurate assessment of bladder contraction strength, though the study did show straining and increased electromyography (EMG) activity during voiding. The atonic bladder may be attributed to spinal pathology and/or pelvic floor dysfunction (PFD). Opted to maximize baclofen, utilize sitz baths, heating pads, pelvic floor physical therapy (PFPT), and continue tamsulosin. Nephrology referral provided for abnormal renal function. Strongly encouraged to continue tamsulosin and maximal baclofen as previously prescribed. Advised to trial sitz baths and heating pads to alleviate pain potentially related to PFD.PFPT will be considered if feasible. Further treatment for neurogenic bladder (NGB) deemed unnecessary unless symptoms become significantly bothersome or there is a change in upper urinary tract/renal function noted on annual surveillance via renal ultrasound or basic metabolic panel (BMP). Patientdeferred clean intermittent catheterization (CIC) due to pain with prior catheter use and opted to trial bethanechol to improve voiding ability. MH - March 2025, urinalysis (UA) showed trace hematuria and PVR within normal limits (WNL). Clean catch urinalysis with microscopy was WNL, and culture showed less than 10,000 colony-forming units (CFU), thus not treated. He returns today for yearly evaluation of NGB with LIZETH WNL. - Reports overall improvement in his condition, attributing this to bethanechol four times daily, which he believes has enhanced his bladder emptying process. - Does not experience any abdominal cramping associated with this medication. - Continues to experience minor post-void dribbling, less severe than before. - Has not undergone any recent blood work and has not engaged in PFPT due to insurance complications. - Reports significant improvement in initiating urination and perceives effective bladder emptying,with only minimal post-void dribbling, which he finds manageable. - Current medications include tamsulosin and baclofen, the latter taken three times daily without experiencing drowsiness. - Discontinued the use of sitz baths, tub baths, and heating pads as they were not providing relief. PAST SURGICAL HISTORY: Discectomy, pain pump placement, spinal stimulator implantation for chronic back pain and RLE neuropathy/radiculopathy. PMHx: Problem List[1] Past Medical History[2] PSHx: Surgical History[3] FHx: Family History[4] SHx: Social History[5] ROS: See HPI Physical Exam: Vitals: 06/20/25 1319 BP: (!) 140/84 Pulse: 85 Physical Exam Constitutional: Appearance: Normal appearance. He [...] Results/Data: Recent Results (from the past week) Basic Metabolic Panel, Plasma Collection Time: 06/20/25 1:58 PM Result Value Ref Range Glucose, Plasma 92 74 - 99 mg/dL BUN, Plasma 9 7 - 21 mg/dL Creatinine, Plasma 1.05 0.70 - 1.20 mg/dL BUN/Creatinine Ratio 9 Sodium, Plasma 141 136 - 145 mmol/L Potassium, Plasma 4.5 3.6 - 4.9 mmol/L Chloride, Plasma 102 97 - 107 mmol/L CO2, Plasma 26 22 - 29 mmol/L Anion Gap 13 6 - 16 mmol/L Total Calcium, Plasma 9.3 8.9 - 10.2 mg/dL eGFRcr 93.8 mL/min/1.73m*2 Labs: No results found for: HGBA1C Lab Results Component Value Date GLUCOSE 92 06/20/2025 CALCIUM 9.3 06/20/2025 NA 141 06/20/2025 K 4.5 06/20/2025 CO2 26 06/20/2025 CL 102 06/20/2025 BUN 9 06/20/2025 CREATININE 1.05 06/20/2025 EGFR 93.8 06/20/2025 Recent Results (from the past week) Basic Metabolic Panel, Plasma Collection Time: 06/20/25 1:58 PM Result Value Ref Range Glucose, Plasma 92 74 - 99 mg/dL BUN, Plasma 9 7 - 21 mg/dL Creatinine, Plasma 1.05 0.70 - 1.20 mg/dL BUN/Creatinine Ratio 9 Sodium, Plasma 141 136 - 145 mmol/L Potassium, Plasma 4.5 3.6 - 4.9 mmol/L Chloride, Plasma 102 97 - 107 mmol/L CO2, Plasma 26 22 - 29 mmol/L Anion Gap 13 6 - 16 mmol/L Total Calcium, Plasma 9.3 8.9 - 10.2 mg/dL eGFRcr 93.8 mL/min/1.73m*2 Cultures: Lab Results Component Value Date URINECX 03/13/2025 <10,000 CFU/mL Mixed urogenital, fecal, or skin mohan present. Imagin07/2024: LIZETH resulted without hydronephrosis or stones bilaterally. Bladder mildly distended. 140 mL prevoid bladder volume. 122 mL post void residual volume. Increased echogenicity of liver concerning for steatosis. Jun 2025: LIZETH resulted without hydronephrosis or stones bilaterally. Assessment & Plan 1. Difficulty voiding: Chronic. - Discontinue oxybutynin due to its opposing action to bethanechol. Contact office if symptoms worsen or become intolerable. - Continue bethanechol four times a day. - Continue baclofen 20 mg three times a day. - Continue tamsulosin once daily. - Refill 90-day supply of medications. - Conduct blood work today for further evaluation. Follow-up - Follow-up appointment scheduled for 1 year with repeat blood work and ultrasound at that time. - Notify office if there are any changes in symptoms before the scheduled follow-up. ADDENDUM: BMP bj Pal APRN [1] Patient Active Problem List Diagnosis Herniated nucleus pulposus, L4-5 right Hip pain Leg numbness Chronic back pain Lumbar facet arthropathy Radicular pain of right lower extremity Tear of right acetabular labrum Acid reflux Anxiety Dizziness Hypertensive disorder Kbnuq-[id number] deficiency Abnormal liver function tests Abnormal result of cardiovascular function study Cardiomyopathy Depression Degenerative disc disease, lumbar Decreased pedal pulses Daytime somnolence Constipation Change of skin color Urine frequency Fatty liver Fatigue Esophageal stricture Elevated liver enzymes Edema of right foot Dysphagia Heartburn Hearing difficulty of both ears Gastro-esophageal reflux disease with esophagitis Ingrowing nail Onychomycosis Ingrown toenail of left foot with infection Obesity (BMI 30.0-34.9) Obstructive sleep apnea syndrome Nonalcoholic fatty liver LV dysfunction Keratosis Onychodystrophy Stranguria SOB (shortness of breath) Snoring Pulmonary emphysema Postlaminectomy syndrome Palpitations Pain and swelling of toe of left foot Systolic heart failure Chronic HFrEF (heart failure with reduced ejection fraction) Symptoms involving urinary system Suicidal ideation Chronic low back pain Gastroesophageal reflux disease without esophagitis Tinnitus Injury of muscle of right foot [...] system Abnormal results of kidney function studies Alcohol abuse, in remission Impacted cerumen of both ears Mixed hyperlipidemia Pain of right heel Acquired equinus deformity of right foot Equinus contracture of right ankle Plantar fasciitis of right foot Peripheral neuropathy [2] Past Medical History: Diagnosis Date Acid reflux Acute pharyngitis 03/22/21 Alpha 1-antitrypsin PiMS phenotype Anxiety Cellulitis 06/10/16 Degenerative disc disease, lumbar Delayed emergence from general anesthesia Depression 02/05/2023 Enlarged prostate Fatty liver disease, nonalcoholic GERD (gastroesophageal reflux disease) Hypertension 2017 Infection of toe 11/02/18 Irregular heart beat Joint pain Labral tear of hip joint Low back pain Proteinuria Right foot infection 07/04/24 Tachycardia TIA (transient ischemic attack) URI (upper respiratory infection) 07/04/24 [3] Past Surgical History: Procedure Laterality Date ANTERIOR CRUCIATE LIGAMENT REPAIR Right APPENDECTOMY N/A Appendectomy from Light Extraction ESOPHAGOGASTRODUODENOSCOPY Right IR PAIN PUMP IMPLANT/ REPLACEMENT KNEE SURGERY Right ACL/MCL repair SPINAL CORD STIMULATOR IMPLANT Lumbar SPINE SURGERY 07/27/2018 L4-5 laminectomy TONSILLECTOMY N/A Tonsillectomy from Light Extraction [4] Family History Problem Relation Name Age [...] Appointment [facility] [address] [place] [address] 06/20/2026 9:50 AM EST Clinical Support [facility] [address], [address] [place] [address] 06/20/2026 11:00 AM EST Office Visit [place] [facility] [address], [address] [place] [address] Helene Pal, SPEECH CORRECTION CONSULTANT, DNP [address] [place] [address] Scheduled Orders Name Type Priority Associated Diagnoses Orde r Schedule Basic Metabolic Panel, Plasma Lab Routine Neurogenic bladder Expected: 06/20/2026 (Approximate), Expires: 12/18/2026 Renal Complete Imaging Routine Neurogenic bladder Expected: 06/20/2026 (Approximate), Expires: 12/18/2026 documented as of this encounter Results * Basic Metabolic Panel, Plasma (06/20/2025 1:58 PM EST) Glucose, Plasma 92 74 - 99 mg/dL 06/20/2025 3:34 PM EST [facility] BUN, Plasma 9 7 - 21 mg/dL 06/20/2025 3:34 PM EST [facility] Creatinine, Plasma 1.05 0.70 - 1.20 mg/dL 06/20/2025 3:34 PM EST [facility] BUN/Creatinine Ratio 9 06/20/2025 3:34 PM EST [facility] Sodium, Plasma 141 136 - 145 mmol/L 06/20/2025 3:34 PM EST [facility] Potassium, Plasma 4.5 3.6 - 4.9 mmol/L 06/20/2025 3:34 PM EST [facility] Chloride, Plasma 102 97 - 107 mmol/L 06/20/2025 3:34 PM EST [facility] CO2, Plasma 26 22 - 29 mmol/L 06/20/2025 3:34 PM EST [facility] Anion Gap 13 6 - 16 mmol/L 06/20/2025 3:34 PM EST [facility] Total Calcium, Plasma 9.3 8.9 - 10.2 mg/dL 06/20/2025 3:34 PM EST [facility] eGFRcr 93.8 mL/min/1.7 3m*2 06/20/2025 3:34 PM EST [facility] Comment:Reported eGFRcr in m L/min/1.73m2 is based the CKD-EPI 2020 equation that does not use a race coefficient. Blood Venous blood specimen / Unknown Venipuncture / Unknown 06/20/2025 1:58 PM EST 06/20/2025 1:59 PM EST Helene Pal APRN, DNP LAB BLOOD ORDERABLES Fin al Result [facility] [address] [place] [address] documented in this encounter Visit Diagnoses Diagnosis Urine frequency- Primary Neurogenic bladder Neurogenic bladder, NOS Retention, urine Unspecified retention of urine Difficulty voiding Other symptoms involving urinary system PFD (pelvic floor dysfunction) documented in this encounter Additional Health Concerns Assessment Noted Time A fall risk assessment has been complete d for the patient 06/20/2025 1:19 PM EST A Body Mass Index follow-up plan has been documented for the patient 06/20/2025 1:52 PM EST documented as of this encounter Care Teams Parts Salesperson Relationship Specialty Start Date End Date Ly Morales APRN [address] [place] [address] PCP - General 12/29/22 Inocencia Hastings APRN, DNP [address] [place] [address] Nurse Practitioner Neurosurgery 07/11/22 Helene Pal APRN, DNP [address] [place] [address] Nurse Practitioner Urology 06/20/25 documented as of this encounter
[2025-07-26 10:57] LABS: Alanine Aminotransferase 35 U/L (12-78); Albumin Level 4.7 g/dl (3.5-5.0); Albumin/Globulin Ratio 1.8 (1.1-1.8); Alkaline Phosphatase 98 U/L (38-126); Anion Gap 13.2 mEq/L (5-15); Aspartate Amino Transferase 29 U/L (17-59); Bilirubin,Total 0.6 mg/dl (0.2-1.3); Blood Urea Nitrogen 16 mg/dl (9-20); Calcium 9.4 mg/dl (8.4-10.2); Carbon Dioxide 25 mmol/L (22.0-30.0); Chloride 107 mmol/L (98-107); Creatinine,Serum 1.00 mg/dl (0.66-1.25); Estimated Glomerular Filt Rate 84 ml/min (>60); GFR (African American) 102 ML/MIN (>60); Globulin 2.6 g/dL (1.3-3.2); Glucose 100 mg/dl (74-100); Potassium 4.2 mmoL/L (3.5-5.1); Sodium 141 mmol/L (136-145); Total Protein,Serum 7.3 g/dl (6.3-8.2)
--- OUTSIDE RECORDS SUMMARY | 2025-07-26 11:56 | XMS_ITS | Encounter Summary ---
Author Organization [facility] Address [address] [place] [address] Care Team Providers Care Morphologist Name Role Phone Mri Javier MD Primary Care Provider [phone] Inocencia Hastings MANAGER OF INVESTIGATIONS, DNP Unavailable [phone] Ly Morales MANAGER OF INVESTIGATIONS Primary Care Provider [phone] Helene Pal MANAGER OF INVESTIGATIONS, DNP Unavailable [phone] Encounter Details Date Type Department Care Team (Late st Contact Info) Description 06/24/2022 Orders Only External Location [address] [place] [address] Dimple Soliz, MANAGER OF INVESTIGATIONS [address] [facility] [address] [facility] [address] [place] [address] Social History Tobacco Use Types [...] EST Appointment [facility] [address] [place] [address] 06/20/2026 9:50 AM EST Clinical Support [facility] [address] [place] [address] 06/20/2026 11:00 AM EST Office Visit [facility] [address], [address] [place] [address] Helene Pal APRN, BETO [address] [place] [address] documented as of this encounter [...] documented as of this encounter Care Teams Morphologist Relationship Specialty Start Date End Date Mir Javier MD [address] [place] [address] PCP - General 12/21/20 12/28/22 Ly Morales APRN [address] [place] [address] PCP - General 12/29/22 Inocencia Hastings APRN, BETO [address] [place] [address] Nurse Practitioner Neurosurgery 07/11/22 Helene Pal APRN, DNP [address] [place] [address] Nurse Practitioner Urology 06/20/25 documented as of this encounter
--- OUTSIDE RECORDS SUMMARY | 2025-07-26 11:56 | XMS_ITS | Continuity of Care Document ---
Author Organization [facility] Address [address] [place] [address] Care Team Providers Care Senior Lead Java Developer Name Role Phone YVES BLACKMAN Referring Provider ALEJANDRA CASTELLANO Primary Care Provider [phone] Assessment No assessment recorded. Plan of Treatment Reminders Order Date Submit Date Provider Last Modified By Organization Details Last Modified Time Details Appointments Mental Health 20 2024 10:20A M Magalys Lee APRN Not available Not available Not available Lab None recorded. Referral None recorded. Procedures None recorded. Surgeries None recorded. Imaging None recorded. Medication Orders duloxetin e 30 mg capsule,d elayed release [address], [address], 06/09/2025 10:25:27 oxcarbaze pine 300 mg tablet [address], [address], 06/09/2025 10:14:12 quetiapin e 100 mg tablet [address], [address], 05/19/2025 09:48:10 Patient TargetsNo targets recorded. Patient Instructions Encounter Date Encounter Id Patient Instructions Last Modified By Organization Details Last Modified Time 05/19/2025 [id number] Discussed R/B/SE /A of medications, including sedation, and patient endorsed understanding. Reviewed safety plan. Pt given crisis numbers and has identified support persons. RTC 3 weeks to adjust medications and assess effectiveness or sooner if needed. [email or web address] Not available 05/19/2025 12:06:46 Reason for Referral None Reported. Results Created Date Observation Date Name Description Value Unit Range Abnormal Flag Note LastModifiedBy Organization Detail LastModifiedTime 05/09/2005/10/2025 CBC WITH DIFFE RENTI AL/PL ATELE T WBC 8.0 x10e3 /uL 3.4-10 .8 normal Not Available [facility] ([facility]) [address] [place], [address], 05/10/2025 09:07:55 05/09/2005/10/2025 CBC WITH DIFFE RENTI AL/PL ATELE T RBC 4.99 x10e6 /uL 4.14-5 .80 normal Not Available [facility] ([facility]) [address] [place], [address], 05/10/2025 09:07:55 05/09/20 25 05/10/2025 CBC WITH DIFFE RENTI AL/PL ATELE T hemoglobin 14.8 g/dL 13.0-1 7.7 normal Not Available [facility] ([facility]) [address] [place], [address], 05/10/2025 09:07:55 05/09/20 25 05/10/2025 CBC WITH DIFFE RENTI AL/PL ATELE T hematocrit 45.4 % 37.5-5 1.0 normal Not Available [facility] ([facility]) [address] [place], [address], 05/10/2025 09:07:55 05/09/20 25 05/10/2025 CBC WITH DIFFE RENTI AL/PL ATELE T MCV 91 fL 79-97 normal Not Available [facility] ([facility]) [address] [facility], [place], [address], 05/10/2025 09:07:55 05/09/20 25 05/10/2025 CBC WITH DIFFE RENTI AL/PL ATELE T MCH 29.7 pg 26.6-3 3.0 normal Not Available [facility] ([facility]) [address] [facility], [place], [address], 05/10/2025 09:07:55 05/09/20 25 05/10/2025 CBC WITH DIFFE RENTI AL/PL ATELE T MCHC 32.6 g/dL 31.5-3 5.7 normal Not Available [facility] ([facility]) [address] [place], [address], 05/10/2025 09:07:55 05/09/20 25 05/10/2025 CBC WITH DIFFE RENTI AL/PL ATELE T RDW 13.5 % 11.6-1 5.4 Not Available [facility] ([facility]) [address] [place], [address], 05/10/2025 09:07:55 05/09/20 25 05/10/2025 CBC WITH DIFFE RENTI AL/PL ATELE T platelets 278 x10e3 /uL 150-45 0 normal Not Available [facility] ([facility]) [address] [place], [address], 05/10/2025 09:07:55 05/09/20 25 05/10/2025 CBC WITH DIFFE RENTI AL/PL ATELE T neutrophils 67 % not estab. normal Not Available [facility] ([facility]) [address] [place], [address], 05/10/2025 09:07:55 05/09/20 25 05/10/2025 CBC WITH DIFFE RENTI AL/PL ATELE T lymphs 21 % not estab. normal Not Available [facility] ([facility]) [address] [place], [address], 05/10/2025 09:07:55 05/09/20 25 05/10/2025 CBC WITH DIFFE RENTI AL/PL ATELE T monocytes 9 % not estab. normal Not Available [facility] ([facility]) [address] [facility], [place], [address], 05/10/2025 09:07:55 05/09/20 25 05/10/2025 CBC WITH DIFFE RENTI AL/PL ATELE T eos 2 % not estab. normal Not Available [facility] ([facility]) [address] [place], [address], 05/10/2025 09:07:55 05/09/20 25 05/10/2025 CBC WITH DIFFE RENTI AL/PL ATELE T basos 1 % not estab. normal Not Available [facility] ([facility]) [address] [place], [address], 05/10/2025 09:07:55 05/09/20 25 05/10/2025 CBC WITH DIFFE RENTI AL/PL ATELE T immature cells CLINICAL PHARMACIST Not Available [facility] ([facility]) [address] [place], [address], 05/10/2025 09:07:55 05/09/20 25 05/10/2025 CBC WITH DIFFE RENTI AL/PL ATELE T neutrophils (absolute) 5.4 x10e3 /uL 1.4-7. 0 normal Not Available [facility] ([facility]) [address] [place], [address], 05/10/2025 09:07:55 05/09/20 25 05/10/2025 CBC WITH DIFFE RENTI AL/PL ATELE T lymphs (absolute) 1.7 x10e3 /uL 0.7-3. 1 normal Not Available [facility] ([facility]) [address] [place], [address], 05/10/2025 09:07:55 05/09/20 25 05/10/2025 CBC WITH DIFFE RENTI AL/PL ATELE T monocytes(ab solute) 0.7 x10e3 /uL 0.1-0. 9 normal Not Available [facility] ([facility]) [address] [facility], [place], [address], 05/10/2025 09:07:55 05/09/20 25 05/10/2025 CBC WITH DIFFE RENTI AL/PL ATELE T eos (absolute) 0.2 x10e3 /uL 0.0-0. 4 normal Not Available [facility] ([facility]) [address] [place], [address], 05/10/2025 09:07:55 05/09/20 25 05/10/2025 CBC WITH DIFFE RENTI AL/PL ATELE T baso (absolute) 0.0 x10e3 /uL 0.0-0. 2 normal Not Available [facility] ([facility]) [address] [facility], [place], [address], 05/10/2025 09:07:55 05/09/20 25 05/10/2025 CBC WITH DIFFE RENTI AL/PL ATELE T immature granulocytes 0 % not estab. Not Available [facility] ([facility]) [address] [place], [address], 05/10/2025 09:07:55 05/09/20 25 05/10/2025 CBC WITH DIFFE RENTI AL/PL ATELE T immature grans (abs) 0.0 x10e3 /uL 0.0-0. 1 Not Available [facility] ([facility]) [address] [place], [address], 05/10/2025 09:07:55 05/09/20 25 05/10/2025 CBC WITH DIFFE RENTI AL/PL ATELE T NRBC CLINICAL PHARMACIST Not Available [facility] ([facility]) [address] [place], [address], 05/10/2025 09:07:55 05/09/20 25 05/10/2025 CBC WITH DIFFE DUTCH AL/LEANNE Slater hematology comments: CLINICAL PHARMACIST Not Available [facility] ([facility]) [address], [place], [address], 05/10/2025 09:07:55 05/09/20 25 05/10/2025 COMP. METAB OLIC PANEL (14) glucose 103 mg/dL 70-99 above high normal Not Available [facility] ([facility]) [address], [place], [address], 05/10/2025 09:07:56 05/09/20 25 05/10/2025 COMP. METAB OLIC PANEL (14) BUN 12 mg/dL 6-20 normal Not Available [facility] ([facility]) [address] [facility], [place], [address], 05/10/2025 09:07:56 05/09/20 25 05/10/2025 COMP. METAB OLIC PANEL (14) creatinine 0.98 mg/dL 0.76-1 .27 normal Not Available [facility] ([facility]) [address] [facility], [place], [address], 05/10/2025 09:07:56 05/09/20 25 05/10/2025 COMP. METAB OLIC PANEL (14) eGFR 102 mL/mi n/1.7 3 >59 normal Not Available [facility] ([facility]) [address] [facility], [place], [address], 05/10/2025 09:07:56 05/09/20 25 05/10/2025 COMP. METAB OLIC PANEL (14) BUN/creatini ne ratio 12 9-20 normal Not Available [facility] ([facility]) [address] [facility], [place], [address], 05/10/2025 09:07:56 05/09/20 25 05/10/2025 COMP. METAB OLIC PANEL (14) sodium 142 mmol/ L 134-14 4 normal Not Available [facility] ([facility]) [address] [facility] [place], [address], 05/10/2025 09:07:56 05/09/20 25 05/10/2025 COMP. METAB OLIC PANEL (14) potassium 4.3 mmol/ L 3.5-5. 2 normal Not Available [facility] ([facility]) [address] [facility] [place], [address], 05/10/2025 09:07:56 05/09/2005/10/2025 COMP. METAB OLIC PANEL (14) chloride 107 mmol/ L 96-106 above high normal Not Available [facility] ([facility]) [address] [facility] [place], [address], 05/10/2025 09:07:56 05/09/2005/10/2025 COMP. METAB OLIC PANEL (14) carbon dioxide, total 20 mmol/ L 20-29 normal Not Available [facility] ([facility]) [address] [facility] [place], [address], 05/10/2025 09:07:56 05/09/20 25 05/10/2025 COMP. METAB OLIC PANEL (14) calcium 9.2 mg/dL 8.7-10 .2 normal Not Available [facility] ([facility]) [address] [facility] [place], [address], 05/10/2025 09:07:56 05/09/2005/10/2025 COMP. METAB OLIC PANEL (14) protein, total 7.0 g/dL 6.0-8. 5 normal Not Available [facility] ([facility]) [address] [facility] [place], [address], 05/10/2025 09:07:56 05/09/20 25 05/10/2025 COMP. METAB OLIC PANEL (14) albumin 4.6 g/dL 4.1-5. 1 normal Not Available [facility] ([facility]) [address] [place], [address], 05/10/2025 09:07:56 05/09/20 25 05/10/2025 COMP. METAB OLIC PANEL (14) globulin, total 2.4 g/dL 1.5-4. 5 Not Available [facility] ([facility]) [address] [place], [address], 05/10/2025 09:07:56 05/09/20 25 05/10/2025 COMP. METAB OLIC PANEL (14) bilirubin, total 0.7 mg/dL 0.0-1. 2 normal Not Available [facility] ([facility]) [address] [place], [address], 05/10/2025 09:07:56 05/09/20 25 05/10/2025 COMP. METAB OLIC PANEL (14) alkaline phosphatase 102 IU/L 47-123 normal Not Available [facility] ([facility]) [address] [place], [address], 05/10/2025 09:07:56 05/09/20 25 05/10/2025 COMP. METAB OLIC PANEL (14) AST (SGOT) 44 IU/L 0-40 above high normal Not Available [facility] ([facility]) [address] [place], [address], 05/10/2025 09:07:56 05/09/20 25 05/10/2025 COMP. METAB OLIC PANEL (14) ALT (SGPT) 79 IU/L 0-44 above high normal Not Available [facility] ([facility]) [address] [place], [address], 05/10/2025 09:07:56 05/09/20 25 05/10/2025 LIPID PANEL cholesterol, total 164 mg/dL 100-19 9 normal Not Available [facility] ([facility]) [address] [facility] [place], [address], 05/10/2025 09:07:56 05/09/20 25 05/10/2025 LIPID PANEL triglyceride s 104 mg/dL 0-149 normal Not Available [facility] ([facility]) [address] [facility] [place], [address], 05/10/2025 09:07:56 05/09/20 25 05/10/2025 LIPID PANEL HDL cholesterol 35 mg/dL >39 below low normal Not Available [facility] ([facility]) [address] [facility] [place], [address], 05/10/2025 09:07:56 05/09/20 25 05/10/2025 LIPID PANEL VLDL cholesterol lizzy 19 mg/dL 5-40 Not Available [facility] ([facility]) [address] [place], [address], 05/10/2025 09:07:56 05/09/20 25 05/10/2025 LIPID PANEL LDL chol calc ([facility]) 110 mg/dL 0-99 above high normal Not Available [facility] ([facility]) [address] [place], [address], 05/10/2025 09:07:56 05/09/20 25 05/10/2025 LIPID PANEL LDL calc comment: CLINICAL PHARMACIST Not Available [facility] ([facility]) [address] [place], [address], 05/10/2025 09:07:56 05/09/20 25 05/10/2025 THYRO ID PANEL WITH TSH TSH 1.430 uIU/m L 0.450- 4.500 normal Not Available [facility] ([facility]) [address] [place], [address], 05/10/2025 09:07:57 05/09/20 25 05/10/2025 THYRO ID PANEL WITH TSH thyroxine (T4) 8.5 ug/dL 4.5-12 .0 normal Not Available [facility] ([facility]) [address] [place], [address], 05/10/2025 09:07:57 05/09/20 25 05/10/2025 THYRO ID PANEL WITH TSH T3 uptake 25 % 24-39 normal Not Available [facility] ([facility]) [address] [place], [address], 05/10/2025 09:07:57 05/09/2005/10/2025 THYRO ID PANEL WITH TSH free thyroxine index 2.1 1.2-4. 9 normal Not Available [facility] ([facility]) [address] [facility], [place], [address], 05/10/2025 09:07:57 05/09/2005/10/2025 CARBA MAZEP INE(T EGRET OL),S carbamazepin e(tegretol), S <0.5 ug/mL 4.0-12 .0 below low normal In conju nctio n with other antie pilep tic drugs Thera peuti c 4.0 - 8.0 Toxic ity 9.0 - 12.0 Carba mazep ine alone Thera peuti c 8.0 - 12.0 Detec tion Limit = 2.0 <2.0 indic ates None Detec rianna Kat ified by vaishalia t josh sis Not Available [facility] ([facility]) [address] [place], [address], 05/10/2025 09:07:57 Result Notes None recorded. Problems Name Problem SNOMED Code Status Onset Date Resolution Date Notes Provider Name and Address Organization Details Recorded Time Suspecte d RedHelperID-19 226859650 Completed 11/26/2020 Removal Reason: Problem added by user [email or web address] from the COVID-19 watch flag Angelika Benton null, [place] - [facility] 10:15:17 Suspecte d COVID-19 [id number] Completed 03/25/2021 Removal Reason: Problem marked historic al by user [email or web address] from the COVID-19 watch flag Angelika Benton null, [place] - [facility] 1 10:15:17 Hyperten sive disorder 11797279 Active 2015 Alejandra Castellano, TRANSPORTATION SPECIALIST [address], [place], [address], [place] - [facility] 2 09:50:17 Chronic back pain 505259976 Active 2015 Alejandra Leóncal, TRANSPORTATION SPECIALIST [address], [place], [address], [place] - [facility] 2 09:50:08 Acid reflux 476235190 Active 2015 Alejandra Leóncal, TRANSPORTATION SPECIALIST [address], [place], [address], [place] - [facility] 2 09:50:13 Ingrowin g nail 979516318 Completed 201510/07/2016 Mir Javier MD [address], [place], [address], [place] - [facility] 7 19:56:38 Cellulit is 143698767 Completed 201510/07/2016 Candelaria Willis null[place] - [facility] 8 14:49:31 Impacted cerumen 37001379 Completed 201610/29/2016 Candelaria Willis null[place] - [facility] 7 08:30:44 Urinary symptoms 568737918 Completed 201603/09/2018 Candelaria Willis [place] - [facility] 8 14:49:36 Cellulit is 931407970 Completed 201603/09/2018 Candelaria Lazaro [place] - [facility] 8 14:49:31 Infectio n of toenail 65025100305 286126 Completed 201603/09/2018 Candelaria Willis [place] - [facility] 8 14:49:39 Chest discomfo rt 807573993 Completed 201703/09/2018 Candelaria Willis null[place] - [facility] 8 14:49:44 Anxiety 57599579 Active 2017 Alejandra Castellano, TRANSPORTATION SPECIALIST [address], [place], [address], [place] - [facility] 2 09:50:10 Lumbosac ral radiculo john 7900134 Active 2017 Alejandra Castellano, TRANSPORTATION SPECIALIST [address], [place], [address], [place] [facility] 2 09:50:23 Infectio n of toe 276826507 Completed 201812/13/2020 Mir Javier MD [address], [place], [address], [place] [facility] 1 15:25:15 Injury of muscle of right foot 33738942231 018427 Completed 201912/13/2020 Mir Javier MD [address], [place], [address], [place] [facility] 1 15:25:09 Superfic ial puncture wound 416014689 Completed 201912/13/2020 Mir Javier MD [address], [place], [address] [facility] 1 15:25:26 Acute pharyngi tis 552095411 Completed 202010/17/2021 Mir Javier MD [address], [place], [address], [place] [facility] 2 14:23:13 Family history of diabetes mellitus 219230293 Active 2021 Mir Javier MD [address], [place], [address] [facility] 2 14:23:53 Dizzines s 644178433 Active 2021 Mir Javier MD [address], [place], [address], [place] [facility] 2 13:12:43 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 Alejandra Castellano APRN [address], [place], [address], [place] - [facility] 4 09:16:00 Depressi ve disorder 91868680 Active 2022 Clembrittany Castellano APRN [address], [place], [address], [place] - [facility] 4 09:15:45 Gastroes ophageal reflux disease without esophagi tis 996204638 Active 2023 Alejandra Castellano APRN [address], [place], [address], [place] - [facility] 4 09:15:43 History of alcohol use disorder Active 2024 Magalyshua Lee APRN [address], [place], [address], [place] - [facility] 5 11:56:12 Mixed hyperlip idemia 724283718 Active 2024 Alejandra Castellano APRN [address], [place], [address], [place] - [facility] 5 13:54:02 Problem Notes None recorded. Procedures Surgical History Date Name Laterality Status Provider Name and Address Organization Details Recorded Time 07/14/20 24 Medication Reconcilliation completed Maritza Loza [place] - [facility] 07/14/2024 15:39:36 03/28/20 24 Cerumen Removal completed Alejandra Castellano APRN [address], [place], [address], [place] - [facility] 03/28/2024 16:37:10 02/28/20 23 Dexcom Placement completed Alejandra Castellano APRN [address], [place], [address], [place] - [facility] 02/27/2023 17:04:30 02/28/20 23 Medication Reconcilliation completed Jenni Drake [place] - [facility] 02/27/2023 16:18:27 07/12/20 20 Systolic B/P less than 130 mm Hg completed Daily Lazars [place] - [facility] 07/12/2020 13:30:58 07/12/20 20 Diastolic B/P 80-89 mm Hg completed Daily Hook [place] - [facility] 07/12/2020 13:31:00 03/21/20 20 Systolic B/P less than 130 mm Hg completed [facility] - [facility] 03/21/2020 08:25:39 03/21/20 20 Diastolic B/P 80-89 mm Hg completed [facility] - [facility] 03/21/2020 08:25:41 12/16/19 20 Systolic B/P less than 130 mm Hg completed [facility] 12/16/2019 14:03:23 12/16/19 20 Diastolic B/P 80-89 mm Hg completed [facility] - [facility] 12/16/2019 14:03:26 12/16/19 20 Medication Reconcilliation completed [facility] 12/16/2019 14:02:06 09/29/19 20 Diastolic B/P greater than or equal to 90 mm Hg completed [facility] - [facility] 09/29/2019 09:09:16 09/29/19 20 Systolic B/P 130-139 mm Hg completed [facility] 09/29/2019 09:08:51 08/25/19 20 Diastolic B/P 80-89 mm Hg completed [facility] 08/25/2019 08:49:38 08/25/19 20 Systolic B/P greater than or equal to 140 mm Hg completed [facility] 08/25/2019 08:49:36 08/11/19 18 Back Surgery completed Savanna Powell [place] - [facility] 09/30/2018 14:31:35 07/01/20 17 Toenail Removal/Excision- permanent, partial or complete completed Candelaria Willis [place] - [facility] 07/01/2017 09:40:06 06/18/20 16 Toenail Removal/Excision- permanent, partial or complete completed Mir Javier MD [address], [address] [place] - [facility] 06/21/2016 16:04:54 Appendectomy completed Candelaria [place] [facility] 06/10/2016 16:31:57 Tonsillectomy completed Candelaria [place] [facility] 06/10/2016 16:32:07 Knee arthroscopy/surger y completed Savanna Powell [place] - [facility] 09/30/2018 14:30:19 Imaging Results None recorded. Procedure Notes None recorded. Medical Equipment None Reported. Allergies Allergen ID Allergen Name Allergen Category Reaction Reaction Severity Criticality Documentation Date Start Date Code Code System Note Provider Name and Address Organization Details Recorded Time 838430 tizanidin e medicatio n Not available Not available Not available 08/22/2021 03396 RxNorm confu maria r Garza [place], [place] - [facility] 2 10:34:24 21463 Product containin g penicilli n (product) medicatio n Not available Not available Not available 05/16/20162014 13074 8001 SNOMED React ion: hives short ness of breat h; Not Available [facility] 6 10:39:07 Medications Name Sig Start Date [...] 1 TO 2 CAPSULE( S) BY MOUTH AT BEDTIME active Not Available Not Available No t Available oxcarbaze pine 150 mg tablet TAKE ONE TABLET BY MOUTH TWICE DAILY DIRECTED 06/09 completed Not Available Not Available Not Available doxycycli ne hyclate 100 mg capsule [...] Not Available Not Available No t Available azithromy jose luis 250 mg tablet TAKE [...] BY MOUTH EVERY DAY AT BEDTIME DIRECTED 05/09 completed Not Available Not Available Not Available chlorzoxa zone 500 mg tablet TAKE [...] TAKE ONE TABLET BY MOUTH EVERY DAY 05/09 completed Not Available Not Available Not Available oxcarbaze pine 300 mg tablet TAKE ONE (1) TABLET BY MOUTH TWICE DAILY FOR MOOD 06/09 completed Not Available Not Available Not Available doxepin 10 mg capsule TAKE 1 [...] quetiapin e 100 mg tablet TAKE ONE (1) TABLET BY MOUTH EVERY NIGHT AT BEDTIME FOR SLEEP active Not Available Not Available No t Available acetamino phen 500 mg tablet 05/16 completed Not Available Not Available Not Available ondansetr on 8 mg disintegr ating tablet DISSOLVE ONE TABLET in MOUTH THREE TIMES DAILY NEEDED FOR NAUSEA AND VOMITING 11/26 completed Not Available Not Available Not Available baclofen 20 mg tablet Take 1 tablet 3 times a day by oral route. active Not Available Not Available No t Available meloxicam 7.5 mg tablet TAKE 1 TABLET BY MOUTH EVERY DAY FOR PAIN active Not Available Not Available No t Available oxycodone -acetamin ophen 5 mg-325 mg [...] Not Available Not Available Not Avai lable ropinirol e 0.25 mg tablet TAKE ONE (1) TABLET BY MOUTH AT BEDTIME NIGHTLY active Not Available Not Available No t Available amitripty line 10 mg tablet TAKE ONE TABLET BY MOUTH EVERY DAY 11/05 completed Not Available Not Available Not Available baclofen 10 mg tablet TAKE TWO (2) TABLETS BY MOUTH THREE (3) TIMES DAILY active Not Available Not Available No [...] 40 mg tablet,de layed release TAKE ONE (1) TABLET TWICE A DAY BY ORAL ROUTE FOR 30 DAYS. active Not Available Not Available No t Available Cristina-D 12 Hour 60 mg-120 mg tablet,ex [...] User: [email or web address] ;EstTonio Oliver on: 08/24/19 16;Pharm [email or web address] ied: 06/25/20 11:42AM Not Available Not Available Not Available gabapenti n 300 mg capsule TAKE ONE CAPSULE BY MOUTH FOUR TIMES DAILY MAY CAUSE DROWSINE SS 03/21 completed Not Available Not Available Not Available omeprazol e 20 mg capsule,d elayed release TAKE ONE CAPSULE BY MOUTH EVERY DAY 12/13 completed Not Available Not Available Not Available oxcarbaze pine 600 mg tablet TAKE ONE (1) TABLET BY MOUTH TWICE A DAY FOR MOOD. active Not Available Not Available No t Available diclofena c sodium 75 mg tablet,de layed release TAKE ONE TABLET BY MOUTH TWICE DAILY --TAKE WITH FOOD-- 02/27 completed Not Available Not Available Not Available ammonium lactate 12 % topical cream APPLY TO AFFECTED AREA TWICE DAILY FOR DRY SKIN AND CALLUS CARE active Not Available Not Available No t Available mupirocin 2 % topical ointment APPLY TOPICALL Y TO THE AFFECTED AREA(S) TWICE DAILY FOR FOURTEEN DAYS 05/09 completed Not Available Not Available Not Available bethanech ol chloride 50 mg tablet TAKE ONE (1) TABLET BY MOUTH FOUR (4) TIMES A DAY. active Not Available Not Available No t Available gabapenti n 100 mg capsule TAKE ONE CAPSULE BY MOUTH TWICE DAILY MAY CAUSE DROWSINE SS 02/27 completed Not Available Not Available Not Available metoprolo l succinate ER 25 mg tablet,ex tended release 24 hr TAKE 1 TABLET BY MOUTH IN THE MORNING AND TAKE 2 TABLETS BY MOUTH AT BEDTIME active Not Available Not Available No t Available clobetaso l 0.05 % topical ointment apply a thin layer TO THE affected AREA topicall y 2-3 times PER DAY as needed FOR ITCHING active Not Available Not Available No t Available azelastin e 137 mcg (0.1 %) nasal spray INSTILL 2 SPRAYS IN EACH NOSTRIL TWICE DAILY 05/09 completed Not Available Not Available Not Available prednison e 5 mg tablets in [...] WITH FOOD-- -- FINISH ALL MEDICINE -- 05/09 completed Not Available Not Available Not Available celecoxib 100 mg capsule TAKE ONE CAPSULE BY MOUTH TWICE DAILY 05/09 completed Not Available Not Available Not Available ketoconaz ole 2 % topical cream [...] ONE TABLET BY MOUTH THREE TIMES DAILY active Not Available Not Available No [...] e 30 mg capsule,d elayed release TAKE ONE (1) CAPSULE BY MOUTH EVERY DAY FOR MOOD 06/09 completed Not Available Not Available Not Available duloxetin e 60 mg capsule,d elayed release TAKE ONE (1) CAPSULE EVERY DAY BY ORAL ROUTE. active Not Available Not Available No t [...] 15 4:08PM;U ser: rell; Est. Completi on: 04/30/20 15;Indic ation: stone [...] Disconti nued on: 05/18/20 15 4:08PM;U ser: [facility]; Est. Completi on: 04/21/20 15;Indic ation: pain [...] Available Xarelto 20 mg tablet TAKE ONE (1) TABLET BY MOUTH EVERY DAY WITH EVENING MEAL active Not Available Not Available No t Available Cough DM ER 30 mg/5 mL oral suspensio n,extende d release take 10 ML BY MOUTH TWICE DAILY 05/16 completed Not Available Not Available Not Available Multi Vitamin Take 1 tablet po daily active Not Available Not Available No t Available Farxiga 5 mg tablet TAKE 1 TABLET BY MOUTH DAILY active Not Available Not Available No t Available sacubitri l 49 mg-valsar wei 51 mg tablet TAKE 1 TABLET BY MOUTH TWICE DAILY active Not [...] height Body mass index (BMI) Body weight Respiratory rate Pain severity - 0-10 verbal numeric rating [Score] - Reported Heart rate Oxygen saturation Systolic And Diastolic Provider Name and Address Organization Details Last Updated DateTime 5 185.42 cm 34.6 kg/m2 836819. 2 g 16 /min 4 76 /min 98 % 132/86 mm[Hg] Anabella Miranda [place] - [facility] 5 09:03:30 Social History Question Answer Notes LastModified by Organizat ion Details LastModified Time Tobacco Smoking Status Never Smoker Candelaria Lazaro falk [place] - [facility] 06/10/2016 16:31:45 Able To Swim? Yes Information not available 05/22/2022 Do You Have An Advance Directive? No [email or web address] Information not available 02/17/2017 Do You Wear A Helmet When Biking? No Information not available 05/22/2022 Are You Blind Or Do You Have Difficulty Seeing? No Information not available 05/22/2022 Is Blood Transfusion Acceptable In An Emergency? Yes Information not available 05/22/2022 What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
--- OUTSIDE RECORDS SUMMARY | 2025-07-26 11:56 | XMS_ITS | Clinical Summary ---
Author Organization Healthcare Address [address] [place] [address] Care Team Providers Care Manager Language Name Role Phone Khadarluz elena Inocencia Powers ACCOUNT ASSISTANT, DNP Unavailable [phone] Ly Morales ACCOUNT ASSISTANT Primary Care Provider [phone] Helene Pal ACCOUNT ASSISTANT, DNP Unavailable [phone] Allergies Active Allergy Reactions Criticality Noted Date Comments Penicillins Anaphylaxis,Wheezing ,Shortness of breath,Unknown - Patient states they do not know rxn details High 05/22/2012 Tizanidine Other - please docum ent in the comment field Low 07/11/2022 Medications Multiple Vitamin (MULTI VITAMIN MENS PO) Take by mouth 1 (one) time each day. 06/01/20 17 Active famotidine (Pepcid) 40 MG tablet Take 1 tablet (40 mg) by mouth 1 (one) time each day. 01/16/20 21 Active pantoprazole (Protonix) 40 MG EC tablet 2 (two) times a day. Active busPIRone (Buspar) 5 MG tablet TAKE ONE TABLET BY MOUTH THREE TIMES DAILY DIRECTED 05/04/20 23 Active DULoxetine (Cymbalta) [address] capsule TAKE ONE CAPSULE BY MOUTH EVERY DAY IN THE MORNING DIRECTED 05/04/20 23 Active ondansetron ODT (Zofran-ODT) 4 MG disintegrating tablet DISSOLVE ONE TABLET BY MOUTH EVERY 8 HOURS NEEDED FOR NAUSEA AND VOMITING 04/20/20 23 Active polyethylene glycol (Miralax) 17 GM/SCOOP powder DISSOLVE 17 GRAMS OF POWDER INTO 4 TO 8 OUNCES OF WATER, JUICE, SODA, COFFEE, OR TEA THEN DRINK EVERY DAY 03/16/20 Active QUEtiapine (SEROquel) 100 MG tablet Take 1 tablet (100 mg) by mouth every night. Active metoprolol succinate XL (Toprol-XL) 25 MG 24 hr tablet 1 tablet (25 mg). 09/03/19 24 Active sacubitril-valsart an (Entresto) 49-51 MG tablet Take 1 tablet by mouth 2 times a day. 07/21/20 23 Active rivaroxaban (Xarelto) 10 MG tablet 2 tablets (20 mg). 06/23/20 24 Active alpha tocopherol (Vitamin E) 400 units capsule Take 1 capsule by mouth daily. Active ALPHA LIPOIC ACID PO Take by mouth. Activ e chlorzoxazone (Parafon Forte) 500 MG tablet TAKE ONE TABLET BY MOUTH THREE TIMES DAILY MAY CAUSE DROWSINESS Active Farxiga 5 MG tablet Take 1 tablet by mouth daily. 05/09/20 25 Active lisinopril 10 MG tablet TAKE ONE TABLET BY MOUTH TWICE DAILY FOR hypertension Active meloxicam (Mobic) 7.5 MG tablet TAKE 1 TABLET BY MOUTH EVERY DAY FOR PAIN 06/09/20 Active OXcarbazepine (Trileptal) 600 MG tablet TAKE ONE (1) TABLET BY MOUTH TWICE A DAY FOR MOOD. 06/09/20 25 Active rOPINIRole (Requip) 0.25 MG tablet TAKE ONE (1) TABLET BY MOUTH AT BEDTIME NIGHTLY Active tamsulosin (Flomax) 0.4 MG 24 hr capsule Take 1 capsule by mouth nightly. 90 capsule 3 06/20/20 25 026 Active baclofen (Lioresal) 10 MG tablet Take 2 pills 3x/day 540 tablet 3 06/20/20 25 Active bethanechol (Urecholine) 50 MG tablet Take 1 tablet by mouth 4 times a day. 360 tablet 3 06/20/20 25 026 Active Active Problems Problem Noted Date Diagnosed Date Impacted cerumen of both ears 06/20/2025 Acquired equinus deformity of right foot 025 Equinus contracture of right ankle 06/20/2025 Plantar fasciitis of right foot 06/20/2025 Peripheral neuropathy 06/20/2025 Mixed hyperlipidemia 06/12/2025 Alcohol abuse, in remission 05/19/2025 Non-pressure chronic ulcer o f other part of right foot limited to breakdown of skin 12/05/2024 Contracture, right ankle 12/05/2024 Other acquired deformities of right foot 025 Other symptoms and signs inv olving the musculoskeletal system 12/05/2024 Pain of right heel 12/05/2024 PFD (pelvic floor dysfunction) 11/29/2024 Neurogenic [...] the plan. Change of skin color 07/04/2024 Urine frequency 07/04/2024 Fatty liver 07/04/2024 Esophageal stricture 07/04/2024 Overview (07/04/2024): Hx of esophageal stretching x 2, AVOID LENARD Hearing difficulty of both ears 07/04/2024 Obesity (BMI 30.0-34.9) 07/04/2024 Obstructive sleep apnea syndrome 07/04/2024 LV dysfunction 07/04/2024 Keratosis 07/04/2024 Onychodystrophy 07/04/2024 Stranguria 07/04/2024 SOB (shortness of breath) 07/04/2024 Snoring 07/04/2024 Postlaminectomy syndrome 07/04/2024 Palpitations 07/04/2024 Systolic heart failure 07/04/2024 Chronic HFrEF (heart failure with reduced ejection fraction) 07/04/2024 Suicidal ideation 07/04/2024 Chronic low back pain 07/04/2024 Tinnitus 07/04/2024 Painful legs and moving toes of right foot 07/04 Retention, urine 07/04/2024 Difficulty voiding 07/04/2024 Straining to void 07/04/2024 Dysuria 07/04/2024 Pain in right leg 06/22/2024 Excoriation (skin-picking) disorder 12/15/2023 Gastroesophageal reflux disease without esophagi tis 11/06/2023 Constipation 03/16/2023 Elevated liver enzymes 03/16/2023 Dysphagia 03/16/2023 Heartburn 03/16/2023 Nonalcoholic fatty liver 03/16/2023 Depression 02/27/2023 [id number] deficiency 10/16/2022 Abnormal liver function tests 09/25/2022 Pulmonary emphysema 09/25/2022 Gastro-esophageal reflux disease with esophagiti s 09/03/2022 Dizziness 04/03/2022 Tear of right acetabular labrum 09/17/2021 Overview (09/17/2021): Added automatically from request for surgery [id number] Hip pain 11/08/2020 Injury of muscle of right foot 08/25/2019 Anxiety 10/30/2017 Chest discomfort 10/30/2017 Herniated nucleus pulposus, L4-5 right 7 Ingrown toenail of left foot with infection 06/11 Leg numbness 03/03/2017 Lumbar facet arthropathy 03/03/2017 Radicular pain of right lower extremity 03/03/20 17 Symptoms involving urinary system 01/01/2017 Acid reflux 06/10/2016 Hypertensive disorder 06/10/2016 Ingrowing nail 06/10/2016 Chronic back pain 12/07/2015 Resolved Problems Problem Noted Date Diagnosed Date Resolved Date Nail finding 07/04/2024 04/30/2025 Fatigue 07/04/2024 07/09/2025 Exposure to COVID-19 virus 07/04/2024 0 04/30/2025 Edema of right foot 07/04/2024 07/09/20 Right foot infection 07/04/2024 025 Onychomycosis 07/04/2024 07/09/2025 Pain and swelling of toe of left foot 07/04/2024 07/09/2025 Suspected severe acute respi ratory syndrome coronavirus 2 (SARS-CoV-2) infection 07/04/2024 Overview (07/04/2024): Removal Reason: Problem added by user [email or web address] from the COVID-19 watch flag URI (upper respiratory infection) 07/04/2024 04/30/2025 Chest pain 07/04/2024 07/09/2025 Acute pharyngitis 03/22/2021 04/30/2025 Infection of toe 11/02/2018 04/30/2025 Cellulitis 06/10/2016 04/30/2025 Encounters Date Type Department Care Team Description 06/20/2025 2:40 PM EST Office Visit [facility] [address] [place] [address] Helene Pal, ACCOUNT ASSISTANT, DNP Urine frequency (Primary Dx); Neurogenic bladder; Retention, urine; Difficulty voiding; PFD (pelvic floor dysfunction) 06/20/2025 Travel 06/19/2025 7:53 AM EST - 06/19/2025 11:59 PM EST Hospital Encounter [facility] Ultrasound [address] [place] [phone] Neuromuscular dysfunction of bladder, unspecified Discharge Disposition: Home or Self Care 06/19/2025 Travel from Last 3 Months Immunizations Immunization [...] Pulse 85 06/20/2025 1:19 PM EST Temperature 36.4 C (97.6 F) 03/13/2025 8:46 AM EDT Respiratory Rate 15 03/13/2025 8:46 AM EDT Oxygen Saturation 95% 03/13/2025 8:46 AM EDT Inhaled Oxygen Concentration - - Weight 123 kg (272 lb) 06/20/2025 1:19 PM EST Height 185.4 cm (6' 1 ) 06/20/2025 1:19 PM EST Body Mass Index 35.89 06/20/2025 1:19 PM EST Plan of Treatment Upcoming Encounters Date Type Department Care Team (Late st Contact Info) Description 06/20/2026 8:45 AM EST Appointment [facility] [address] [place] [address] 06/20/2026 9:50 AM EST Clinical Support [facility] [address] [place] [address] 06/20/2026 11:00 AM EST Office Visit [facility] [address] [place] [phone] Helene Pal, ACCOUNT ASSISTANT, DNP [address] [place] [address] Health Maintenance Due Date Last Done Comments [...] - Risk 2-dose series) 04/18/2023 10/16/2022, 07/27/2018 [id number] Vaccine ( season) 2025 10/02/2022, 05/09/2021, 04/10/2021 [facility]-Depression Screening 06/20/2026 06/20/2025 [facility]-DTaP,Tdap,and Td Vaccines (3 - Td or Tdap) 10/18/2031 10/17/2021, 01/13/2005 [facility]-Zoster Vaccines (1 of 2) 12/08/2037 [facility]-Pneumococcal Vaccine: Pediatrics (0 to 5 Years) and At-Risk Patients (6 to 49 Years) Completed 10/16/2022, 06/18/2010 [facility]-Influenza Vaccine Completed 05/09/2025 , 04/15/2024, 05/19/2023, Additional history exists [facility]-Obesity Intervention Completed 025, 03/13/2025, 11/24/2024, Additional history exists HPV Vaccines (No Doses Required) Completed [facility]-HIB Vaccines Aged Out No longer e ligible based on patient's age to complete this topic [facility]-IPV Vaccines Aged Out No longer e ligible based on patient's age to complete this topic [facility]-Rotavirus Vaccines Aged Out No lo nger eligible based on patient's age to complete this topic Medical Devices Implanted Type Area Worker'S Compensation Claims Examiner Device Identifier Shelf Expiration Date Model / Serial / Lot Scs Lead- 9 Implanted:Qty: 2 on 07/27/2019 Lead Back Medtronic [id number] / / Medtronic Spinal Cord Stimulator- Implanted:07/10 (Quantity not on file) Spinal Cord Stimulator Back Medtronic [id number] / [id number] / Description:LEAD MODEL: [id number] 260, qty 2 Procedures Procedure Name Priority Date/Time Associated Diagnosis Comments BASIC METABOLIC PANEL, PLASMA Routine 06/20/2025 1:58 PM EST Neurogenic bladder US RENAL COMPLETE Routine 06/19/2025 8:5 4 AM EST Neuromuscular dysfunction of bladder, unspecified from Last 3 Months Results * Basic Metabolic Panel, Plasma (06/20/2025 1:58 PM EST) Glucose, Plasma 92 74 - 99 mg/dL 06/20/2025 3:34 PM EST [facility] BUN, Plasma 9 7 - 21 mg/dL 06/20/2025 3:34 PM EST [facility] Creatinine, Plasma 1.05 0.70 - 1.20 mg/dL 06/20/2025 3:34 PM EST [facility] BUN/Creatinine Ratio 9 06/20/2025 3:34 PM EST [facility] Sodium, Plasma 141 136 - 145 mmol/L 06/20/2025 3:34 PM EST [facility] Potassium, Plasma 4.5 3.6 - 4.9 mmol/L 06/20/2025 3:34 PM EST [facility] Chloride, Plasma 102 97 - 107 mmol/L 06/20/2025 3:34 PM EST [facility] CO2, Plasma 26 22 - 29 mmol/L 06/20/2025 3:34 PM EST [facility] Anion Gap 13 6 - 16 mmol/L 06/20/2025 3:34 PM EST [facility] Total Calcium, Plasma 9.3 8.9 - 10.2 mg/dL 06/20/2025 3:34 PM EST [facility] eGFRcr 93.8 mL/min/1.7 3m*2 06/20/2025 3:34 PM EST [facility] Comment:Reported eGFRcr in m L/min/1.73m2 is based the CKD-EPI 2020 equation that does not use a race coefficient. Blood Venous blood specimen / Unknown Venipuncture / Unknown 06/20/2025 1:58 PM EST 06/20/2025 1:59 PM EST us Helene Pal ACCOUNT ASSISTANT, DNP LAB BLOOD ORDERABLES Fin al Result [facility] [address] [place] [address] * US Renal Complete (06/19/2025 8:54 AM [...] 9:16 AM us Helene Pal APRN, [facility] US PROCEDURES Final Result from Last 3 Months Insurance MEDICARE Care Teams Manager Language Relationship Specialty Start Date End Date Ly Morales APRN [address] [place] [address] PCP - General 12/29/22 Inocencia Hastings APRN, [facility] [id number] [place] [phone] Nurse Practitioner Neurosurgery 07/11/22 Helene Pal APRN, DNP [address] [address] Nurse Practitioner Urology 06/20/25
--- OUTSIDE RECORDS SUMMARY | 2025-07-26 11:56 | XMS_ITS | Encounter Summary ---
Author Organization [facility] Address [address] [place] [address] Care Team Providers Care Cafeteria Assistant Name Role Phone Mir Javier MD Primary Care Provider [phone] Inocencia Hastings SCHEDULE HANGER, DNP Unavailable [phone] Ly Morales SCHEDULE HANGER Primary Care Provider [phone] Helene Pal SCHEDULE HANGER, DNP Unavailable [phone] Encounter Details Date Type Department Care Team (Late st Contact Info) Description 06/09/2022 Orders Only External Location [address] [place] [phone] Alex Perez MD [address] [place] [address] [address] [place] [id number] Social History Tobacco Use Types Packs/Day Years [...] EST Appointment [facility] [address] [place] [address] 06/20/2026 9:50 AM EST Clinical Support [facility] [address] [place] [address] 06/20/2026 11:00 AM EST Office Visit [facility] Urology [address] [place] [phone] Helene Pal APRN, [facility] [address] [place] [address] documented as of this encounter [...] as of this encounter Care Teams Cafeteria Assistant Relationship Specialty Start Date End Date Mir Javier MD [address] [place] [address] PCP - General 12/21/20 12/28/22 Ly Morales APRN [address] [place], [place] [id number] PCP - General 12/29/22 Inocencia Hastings APRN, [facility] [address] [place] [phone] Nurse Practitioner Neurosurgery 07/11/22 Helene Pal APRN, DNP [address] [place] [address] Nurse Practitioner Urology 06/20/25 documented as of this encounter
--- OUTSIDE RECORDS SUMMARY | 2025-07-26 11:57 | XMS_ITS | Continuity of Care Document ---
[facility] Organization [facility] Address [address] [place] [address] Care Team Providers Care Dinkey Operator Slate Name Role Phone YVES BLACKMAN Referring Provider [phone] ALEJANDRA CASTELLANO Primary Care Provider [phone] Assessment No assessment recorded. Plan of Treatment Reminders Order Date Submit Date Provider Last Modified By Organization Details Last Modified Time Details Appointments Mental Health FU 20 2024 10:20A M Magalys Lee APRN Not available Not available Not available Lab CBC w/ auto diff 2024 025 HALI [facility], [address], [address], [place], [address], 05/10/2025 09:07:56 carbamaze pine, serum or plasma 2024 025 HALI [facility], [address], [address], [place], [address], 05/10/2025 09:07:57 thyroid panel, serum 2024 025 HALI [facility], [address], [address], [place], [address], 05/10/2025 09:07:57 CMP, serum or plasma 2024 025 HALI [facility], [address], [address], [place], [address], 05/10/2025 09:07:56 lipid panel, serum 2024 025 HALI [facility], [address], [address], [place], [address], 05/10/2025 09:07:57 Referral psychiatr ist referral 2024 025 [email or web address] Zainab Howell MD, [address] , [place], [address], 05/30/2025 11:09:03 Procedures None recorded. Surgeries None recorded. Imaging None recorded. Medication Orders None recorded. Patient TargetsNo targets recorded. Patient InstructionsNo instructions recorded. 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 Referring Physician: Alejandra Castellano, Family Medicine, Encounter Date: 05/09/2025 Results Created Date Observation Date Name Description Value Unit Range Abnormal Flag Note LastModifiedBy Organization Detail LastModifiedTime 05/09/2005/10/2025 CBC WITH DIFFE RENTI AL/PL ATELE T WBC 8.0 x10e3 /uL 3.4-10 .8 normal Not Available [facility] ([facility]) [address] [place], [address], 05/10/2025 09:07:55 05/09/20 25 05/10/2025 CBC WITH DIFFE RENTI AL/PL ATELE T RBC 4.99 x10e6 /uL 4.14-5 .80 normal Not Available [facility] ([facility]) [address] [place], [address], 05/10/2025 09:07:55 05/09/20 25 05/10/2025 CBC WITH DIFFE RENTI AL/PL ATELE T hemoglobin 14.8 g/dL 13.0-1 7.7 normal Not Available [facility] ([facility]) [address] [place], [address], 05/10/2025 09:07:55 09/30/05/10/2025 CBC WITH DIFFE RENTI AL/PL ATELE T hematocrit 45.4 % 37.5-5 1.0 normal Not Available [facility] ([facility]) [address] [place], [address], 05/10/2025 09:07:55 05/09/20 25 05/10/2025 CBC WITH DIFFE RENTI AL/PL ATELE T MCV 91 fL 79-97 normal Not Available [facility] ([facility]) [address] [place], [address], 05/10/2025 09:07:55 05/09/20 25 05/10/2025 CBC WITH DIFFE RENTI AL/PL ATELE T MCH 29.7 pg 26.6-3 3.0 normal Not Available [facility] ([facility]) [address] [place], [address], 05/10/2025 09:07:55 05/09/20 25 05/10/2025 CBC WITH DIFFE RENTI AL/PL ATELE T MCHC 32.6 g/dL 31.5-3 5.7 normal Not Available [facility] ([facility]) [address] [place], [address], 05/10/2025 09:07:55 05/09/20 25 05/10/2025 CBC WITH DIFFE RENTI AL/PL ATELE T RDW 13.5 % 11.6-1 5.4 Not Available [facility] ([facility]) [address] [place], [address], 05/10/2025 09:07:55 05/09/20 25 05/10/2025 CBC WITH DIFFE RENTI AL/PL ATELE T platelets 278 x10e3 /uL 150-45 0 normal Not Available [facility] ([facility]) [address] [place], [address], 05/10/2025 09:07:55 05/09/20 25 05/10/2025 CBC WITH DIFFE RENTI AL/PL ATELE T neutrophils 67 % not estab. normal Not Available [facility] ([facility]) [address] [place], [address], 05/10/2025 09:07:55 05/09/20 25 05/10/2025 CBC WITH DIFFE RENTI AL/PL ATELE T lymphs 21 % not estab. normal Not Available [facility] ([facility]) [address] [place], [address], 05/10/2025 09:07:55 05/09/20 25 05/10/2025 CBC WITH DIFFE RENTI AL/PL ATELE T monocytes 9 % not estab. normal Not Available [facility] ([facility]) [address], [place], [address], 05/10/2025 09:07:55 05/09/20 25 05/10/2025 CBC WITH DIFFE RENTI AL/PL ATELE T eos 2 % not estab. normal Not Available [facility] ([facility]) [address], [place], [address], 05/10/2025 09:07:55 05/09/20 25 05/10/2025 CBC WITH DIFFE RENTI AL/PL ATELE T basos 1 % not estab. normal Not Available [facility] ([facility]) [address], [place], [address], 05/10/2025 09:07:55 05/09/20 25 05/10/2025 CBC WITH DIFFE RENTI AL/PL ATELE T immature cells MANAGER SPECIALTY Not Available [facility] ([facility]) [address] [place], [address], 05/10/2025 09:07:55 05/09/20 25 05/10/2025 CBC WITH DIFFE RENTI AL/PL ATELE T neutrophils (absolute) 5.4 x10e3 /uL 1.4-7. 0 normal Not Available [facility] ([facility]) [address], [place], [address], 05/10/2025 09:07:55 05/09/20 25 05/10/2025 CBC WITH DIFFE RENTI AL/PL ATELE T lymphs (absolute) 1.7 x10e3 /uL 0.7-3. 1 normal Not Available [facility] ([facility]) [address], [place], [address], 05/10/2025 09:07:55 05/09/20 25 05/10/2025 CBC WITH DIFFE RENTI AL/PL ATELE T monocytes(ab solute) 0.7 x10e3 /uL 0.1-0. 9 normal Not Available [facility] ([facility]) [address], [place], [address], 05/10/2025 09:07:55 05/09/20 25 05/10/2025 CBC WITH DIFFE RENTI AL/PL ATELE T eos (absolute) 0.2 x10e3 /uL 0.0-0. 4 normal Not Available [facility] ([facility]) [address], [place], [address], 05/10/2025 09:07:55 05/09/20 25 05/10/2025 CBC WITH DIFFE RENTI AL/PL ATELE T baso (absolute) 0.0 x10e3 /uL 0.0-0. 2 normal Not Available [facility] ([facility]) [address], [place], [address], 05/10/2025 09:07:55 05/09/20 25 05/10/2025 CBC WITH DIFFE RENTI AL/PL ATELE T immature granulocytes 0 % not estab. Not Available [facility] ([facility]) [address], [place], [address], 05/10/2025 09:07:55 05/09/20 25 05/10/2025 CBC WITH DIFFE RENTI AL/PL ATELE T immature grans (abs) 0.0 x10e3 /uL 0.0-0. 1 Not Available [facility] ([facility]) [address], [place], [address], 05/10/2025 09:07:55 05/09/20 25 05/10/2025 CBC WITH DIFFE RENTI AL/PL ATELE T NRBC MANAGER SPECIALTY Not Available [facility] ([facility]) [address], [place], [address], 05/10/2025 09:07:55 05/09/20 25 05/10/2025 CBC WITH DIFFE RENTI AL/PL ATELE T hematology comments: MANAGER SPECIALTY Not Available [facility] ([facility]) [address], [place], [address], 05/10/2025 09:07:55 05/09/20 25 05/10/2025 COMP. METAB OLIC PANEL (14) glucose 103 mg/dL 70-99 above high normal Not Available [facility] ([facility]) [address], [place], [address], 05/10/2025 09:07:56 05/09/20 25 05/10/2025 COMP. METAB OLIC PANEL (14) BUN 12 mg/dL 6-20 normal Not Available [facility] ([facility]) [address], [place], [address], 05/10/2025 09:07:56 05/09/20 25 05/10/2025 COMP. METAB OLIC PANEL (14) creatinine 0.98 mg/dL 0.76-1 .27 normal Not Available [facility] ([facility]) [address], [place], [address], 05/10/2025 09:07:56 05/09/20 25 05/10/2025 COMP. METAB OLIC PANEL (14) eGFR 102 mL/mi n/1.7 3 >59 normal Not Available [facility] ([facility]) [address] [place], [address], 05/10/2025 09:07:56 05/09/20 25 05/10/2025 COMP. METAB OLIC PANEL (14) BUN/creatini ne ratio 12 9-20 normal Not Available [facility] ([facility]) [address] [place], [address], 05/10/2025 09:07:56 05/09/20 25 05/10/2025 COMP. METAB OLIC PANEL (14) sodium 142 mmol/ L 134-14 4 normal Not Available [facility] ([facility]) [address] [place], [address], 05/10/2025 09:07:56 05/09/20 25 05/10/2025 COMP. METAB OLIC PANEL (14) potassium 4.3 mmol/ L 3.5-5. 2 normal Not Available [facility] ([facility]) [address], [place], [address], 05/10/2025 09:07:56 05/09/20 25 05/10/2025 COMP. METAB OLIC PANEL (14) chloride 107 mmol/ L 96-106 above high normal Not Available [facility] ([facility]) [address] [place], [address], 05/10/2025 09:07:56 05/09/20 25 05/10/2025 COMP. METAB OLIC PANEL (14) carbon dioxide, total 20 mmol/ L 20-29 normal Not Available [facility] ([facility]) [address] [place], [address], 05/10/2025 09:07:56 05/09/20 25 05/10/2025 COMP. METAB OLIC PANEL (14) calcium 9.2 mg/dL 8.7-10 .2 normal Not Available [facility] ([facility]) [address] [place], [address], 05/10/2025 09:07:56 05/09/20 25 05/10/2025 COMP. METAB OLIC PANEL (14) protein, total 7.0 g/dL 6.0-8. 5 normal Not Available [facility] ([facility]) [address] [place], [address], 05/10/2025 09:07:56 05/09/2005/10/2025 COMP. METAB OLIC PANEL (14) albumin 4.6 g/dL 4.1-5. 1 normal Not Available [facility] ([facility]) [address] [place], [address], 05/10/2025 09:07:56 05/09/2005/10/2025 COMP. METAB OLIC PANEL (14) globulin, total 2.4 g/dL 1.5-4. 5 Not Available [facility] ([facility]) [address] [place], [address], 05/10/2025 09:07:56 05/09/2005/10/2025 COMP. METAB OLIC PANEL (14) bilirubin, total 0.7 mg/dL 0.0-1. 2 normal Not Available [facility] ([facility]) [address] [place], [address], 05/10/2025 09:07:56 05/09/2005/10/2025 COMP. METAB OLIC PANEL (14) alkaline phosphatase 102 IU/L 47-123 normal Not Available [facility] ([facility]) [address] [place], [address], 05/10/2025 09:07:56 05/09/2005/10/2025 COMP. METAB OLIC PANEL (14) AST (SGOT) 44 IU/L 0-40 above high normal Not Available [facility] ([facility]) [address] [place], [address], 05/10/2025 09:07:56 05/09/20 25 05/10/2025 COMP. METAB OLIC PANEL (14) ALT (SGPT) 79 IU/L 0-44 above high normal Not Available [facility] ([facility]) [address] [place], [address], 05/10/2025 09:07:56 05/09/20 25 05/10/2025 LIPID PANEL cholesterol, total 164 mg/dL 100-19 9 normal Not Available [facility] ([facility]) [address] [place], [address], 05/10/2025 09:07:56 05/09/20 25 05/10/2025 LIPID PANEL triglyceride s 104 mg/dL 0-149 normal Not Available [facility] ([facility]) [address] [place], [address], 05/10/2025 09:07:56 05/09/20 25 05/10/2025 LIPID PANEL HDL cholesterol 35 mg/dL >39 below low normal Not Available [facility] ([facility]) [address] [place], [address], 05/10/2025 09:07:56 05/09/20 25 05/10/2025 LIPID PANEL VLDL cholesterol lizzy 19 mg/dL 5-40 Not Available [facility] ([facility]) [address] [place], [address], 05/10/2025 09:07:56 05/09/20 25 05/10/2025 LIPID PANEL LDL chol calc ([facility]) 110 mg/dL 0-99 above high normal Not Available [facility] ([facility]) [address] [place], [address], 05/10/2025 09:07:56 05/09/20 25 05/10/2025 LIPID PANEL LDL calc comment: MANAGER SPECIALTY Not Available [facility] ([facility]) [address] [place], [address], 05/10/2025 09:07:56 05/09/20 25 05/10/2025 THYRO ID PANEL WITH TSH TSH 1.430 uIU/m L 0.450- 4.500 normal Not Available [facility] ([facility]) [address] [place], [address], 05/10/2025 09:07:57 05/09/20 25 05/10/2025 THYRO ID PANEL WITH TSH thyroxine (T4) 8.5 ug/dL 4.5-12 .0 normal Not Available [facility] ([facility]) [address] [place], [address], 05/10/2025 09:07:57 05/09/20 25 05/10/2025 THYRO ID PANEL WITH TSH T3 uptake 25 % 24-39 normal Not Available [facility] ([facility]) [address] [place], [address], 05/10/2025 09:07:57 05/09/2005/10/2025 THYRO ID PANEL WITH TSH free thyroxine index 2.1 1.2-4. 9 normal Not Available [facility] ([facility]) [address] [place], [address], 05/10/2025 09:07:57 05/09/20 25 05/10/2025 CARBA MAZEP INE(T EGRET OL),S carbamazepin e(tegretol), S <0.5 ug/mL 4.0-12 .0 below low normal In conju nctio n with other antie pilep tic drugs Thera peuti c 4.0 - 8.0 Toxic ity 9.0 - 12.0 Carba mazep ine alone Thera peuti c 8.0 - 12.0 Detec tion Limit = 2.0 <2.0 indic ates None Detec rianna Kat ified by repea t josh sis Not Available [facility] ([facility]) [address] [place], [address], 05/10/2025 09:07:57 Result Notes None recorded. Problems Name Problem SNOMED Code Status Onset Date Resolution Date Notes Provider Name and Address Organization Details Recorded Time Suspecte d COVID-19 316051431 Completed 11/26/2020 Removal Reason: Problem added by user [email or web address] from the TWINLINXID-19 watch flag Angelika Serenity null, [place] - [facility] 10:15:17 Suspecte d COVID-19 416573396 Completed 03/25/2021 Removal Reason: Problem marked historic al by user [email or web address] from the TWINLINXID-19 watch flag Angelika Serenity null, [place] - [facility] 10:15:17 Hyperten sive disorder 95582750 Active 2015 Alejandra Castellano APRN [address], [place], [address], [place] - [facility] 09:50:17 Chronic back pain 807278570 Active 2015 Alejandra Castellano APRN [address], [place], [address], [place] - [facility] 09:50:08 Acid reflux 215110529 Active 2015 Alejandra Castellano APRN [address], [place], [address], [place] [facility] 2 09:50:13 Ingrowin g nail 885916452 Completed 201510/07/2016 Mir Javier MD [address], [place], [address], [place] [facility] 7 19:56:38 Cellulit is 787350467 Completed 201510/07/2016 Candelaria Willis null[place] [facility] 8 14:49:31 Impacted cerumen 30519890 Completed 201610/29/2016 Candelaria Willis [place] [facility] 7 08:30:44 Urinary symptoms 195291520 Completed 201603/09/2018 Candelaria Willis [place] [facility] 14:49:36 Cellulit is 452412519 Completed 201603/09/2018 Candelaria Willis [place] [facility] 14:49:31 Infectio n of toenail 81671725060 643488 Completed 201603/09/2018 Candelaria Willis [place] [facility] 8 14:49:39 Chest discomfo rt 805129459 Completed 201703/09/2018 Candelaria Willis [place] - [facility] 8 14:49:44 Anxiety 76169270 Active 2017 Alejandra Castellano, MUD JACK OPERATOR [address], [place], [address], [place] [facility] 09:50:10 Lumbosac ral radiculo john 4877411 Active 2017 Alejandra Castellano, MUD JACK OPERATOR [address], [place], [address], [place] [facility] 2 09:50:23 Infectio n of toe 121300459 Completed 201812/13/2020 Mir Javier MD [address], [place], [address], [place] [facility] 15:25:15 Injury of muscle of right foot 30509378260 781939 Completed 201912/13/2020 Mir Javier MD [address], [place], [address], [place] [facility] 15:25:09 Superfic ial puncture wound 826931712 Completed 201912/13/2020 Mir Javier MD [address], [place], [address], [place] [facility] 15:25:26 Acute pharyngi tis 035546347 Completed 202010/17/2021 Mir Javier MD [address], [place], [address], [place] [facility] 14:23:13 Family history of diabetes mellitus 105189904 Active 2021 Mir Javier MD [address], [place], [address], [place] [facility] 14:23:53 Dizzines s 321439790 Active 2021 Mir Javier MD [address], [place], [address], [place] [facility] 13:12:43 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 Alejandra Castellano APRN [address], [place], [address], [place] [facility] 09:16:00 Depressi ve disorder 33275981 Active 2022 Alejandra Castellano APRN [address], [place], [address], [place] [facility] 4 09:15:45 Gastroes ophageal reflux disease without esophagi tis 285353383 Active 2023 Alejandra Castellano APRN [address], [place], [address], [place] [facility] 4 09:15:43 History of alcohol use disorder Active 2024 Magalys Lee APRN [address], [place], [address], [place] [facility] 11:56:12 Mixed hyperlip idemia 181499489 Active 2024 Alejandra Castellano APRN [address], [place], [address], [place] [facility] 13:54:02 Problem Notes None recorded. Procedures Surgical History Date Name Laterality Status Provider Name and Address Organization Details Recorded Time 07/14/20 24 Medication Reconcilliation completed Maritza Loza [place] - [facility] 07/14/2024 15:39:36 03/28/20 24 Cerumen Removal completed Alejandra Castellano APRN [address], [place], [address], [place] [facility] 03/28/2024 16:37:10 02/28/20 23 Dexcom Placement completed Alejandra Castellano APRN [address], [place], [address], [place] [facility] 02/27/2023 17:04:30 02/28/20 23 Medication Reconcilliation completed Jenni Bishops [place] - [facility] 02/27/2023 16:18:27 07/12/20 20 Systolic B/P less than 130 mm Hg completed Daily aLzars [place] - [facility] 07/12/2020 13:30:58 07/12/20 20 Diastolic B/P 80-89 mm Hg completed Daily Lazars [place] - [facility] 07/12/2020 13:31:00 03/21/20 20 Systolic B/P less than 130 mm Hg completed Daily Lazars [place] - [facility] 03/21/2020 08:25:39 03/21/20 20 Diastolic B/P 80-89 mm Hg completed Daily Hook [place] - [facility] 03/21/2020 08:25:41 12/16/19 20 Systolic B/P less than 130 mm Hg completed Daily Lazars [place] - [facility] 12/16/2019 14:03:23 12/16/19 20 Diastolic B/P 80-89 mm Hg completed Daily [place] - [facility] 12/16/2019 14:03:26 12/16/19 20 Medication Reconcilliation completed Daily Lazars [place] - [facility] 12/16/2019 14:02:06 09/29/19 20 Diastolic B/P greater than or equal to 90 mm Hg completed Dailyruddy Lazars [place] - [facility] 09/29/2019 09:09:16 09/29/19 20 Systolic B/P 130-139 mm Hg completed Daily Lazars [place] - [facility] 09/29/2019 09:08:51 08/25/19 20 Diastolic B/P 80-89 mm Hg completed Daliyruddy Lazars [place] - [facility] 08/25/2019 08:49:38 08/25/19 20 Systolic B/P greater than or equal to 140 mm Hg completed [facility] [place] [facility] 08/25/2019 08:49:36 08/11/19 18 Back Surgery completed Savanna Powell [place] - [facility] 09/30/2018 14:31:35 07/01/20 17 Toenail Removal/Excision- permanent, partial or complete completed Candelaria Willis [place] - [facility] 07/01/2017 09:40:06 06/18/20 16 Toenail Removal/Excision- permanent, partial or complete completed Mir Javier MD [address], [place], [address], [place] [facility] 06/21/2016 16:04:54 Appendectomy completed Candelaria Willis [place] [facility] 06/10/2016 16:31:57 Tonsillectomy completed Candelaria Willis [place] [facility] 06/10/2016 16:32:07 Knee arthroscopy/surger y completed Savanna Powell [place] - [facility] 09/30/2018 14:30:19 Imaging Results None recorded. Procedure Notes None recorded. Medical Equipment None Reported. Allergies Allergen ID Allergen Name Allergen Category Reaction Reaction Severity Criticality Documentation Date Start Date Code Code System Note Provider Name and Address Organization Details Recorded Time 615315 tizanidin e medicatio n Not available Not available Not available 08/22/2021 29390 RxNorm confu maria r falk, [place] - [facility] 10:34:24 23877 Product containin g penicilli n (product) medicatio n Not available Not available Not available 05/16/20162014 12687 8001 SNOMED React ion: hives short ness [...] UP TO 7 DAYS MAY CAUSE DROWSINE SS 04/03 completed Not Available Not Available Not Available fluoxetin e 10 mg capsule take 1 capsule by oral route daily for 30 days 08/24 completed fluoxeti ne 10 mg oral capsule; Prescrib e Status: Prescrib ed on: 06/25/20 11:42AM; User: [email or web address] ;Est. Olgai on: 08/24/19 16;Pharm Arnie ied: 06/25/20 11:42AM Not Available Not Available [...] mass index (BMI) Body weight Heart rate Body temperature Oxygen saturation Respiratory rate Pain severity - 0-10 verbal numeric rating [Score] - Reported Systolic And Diastolic Provider Name and Address Organization Details Last Updated DateTime 5 185.42 cm 33.8 kg/m2 338493. 65 g 80 /min 97.9 [degF] 96 % 18 /min 5 122/82 mm[Hg] Maritza Loza [place] - [facility] 08:18:51 Date Recorded Body height Body mass index (BMI) Body weight Respiratory rate Pain severity - 0-10 verbal numeric rating [Score] - Reported Heart rate Oxygen saturation Systolic And Diastolic Provider Name and Address Organization Details Last Updated DateTime 5 185.42 cm 34.6 kg/m2 363255. 2 g 16 /min 4 76 /min 98 % 132/86 mm[Hg] Anabella Miranda [place] - [facility] 5 09:03:30 Date Recorded Body height Body mass index (BMI) Body weight Respiratory rate Pain severity - 0-10 verbal numeric rating [Score] - Reported Heart rate Oxygen saturation Systolic And Diastolic Provider Name and Address Organization Details Last Updated DateTime 5 185.42 cm 33.4 kg/m2 357228. 67 g 16 /min 0 87 /min 98 % 102/64 mm[Hg] Anabella Miranda [place] - [facility] 5 09:51:39 Social History Question Answer Notes LastModified by Organizat ion Details LastModified Time Tobacco Smoking Status Never Smoker Candelaria falk [place] - [facility] 06/10/2016 16:31:45 Able To Swim? Yes Information not available 05/22/2022 Do You Have An Advance Directive? No [email or web address] Information not available 02/17/2017 Do You Wear A Helmet When Biking? No Information not available 05/22/2022 Are You Blind Or Do You Have Difficulty Seeing? No Information not available 05/22/2022 Is Blood Transfusion Acceptable In An Emergency? Yes Information not available 05/22/2022 What Is Your Level Of Caffeine Consumption? Moderate [email or web address] Information not available 02/17/2017 How Much Tobacco [...] Do You Have Serious Difficulty Hearing? No [email or web address] Information not available 02/17/2017 What Type Of Diet Are You Following? REGULAR Information not available 05/22/2022 Which Illicit Or Recreational Drugs Have You Used? No [email or web address] Information not available 02/17/2017 Have You Processed [...] Or The Highest Degree You Have Received? XL12082-3 Information not available 05/22/2022 Swimming/diving Yes Informati [...] Do You Have A Medical Power Of Transplant Worker? No Information not available 05/22/2022 What Was The Date Of Your Most Recent Tobacco Screening? 06/09/2025 [email or web address] Information not available 06/09/2025 How Many Children Do You Have? 2 Information not available 05/22/2022 Do You Use Protection During Sex? No [email or web address] Information not available 02/17/2017 Do You Use Protection Against STDs? No Information not available 05/22/2022 What Is Your Relationship Status? [email or web address] Information not available 02/17/2017 Seat Belts Used [...] 05/22/2022 Do You Use Sunscreen Routinely? No [email or web address] Information not available 02/17/2017 Has Tobacco Cessation [...] used smokeless tobacco? Never used smokeless tobacco [email or web address] Information not available 09/29/2019 Are you currently employed? Yes [email or web address] Information not available 02/17/2017 Do you have transportation difficulties? No Information not available 05/22/2022 Are you able to care for yourself independently? Yes [email or web address] Information not available 02/17/2017 Do you have difficulty dressing, bathing, grooming, or toileting? No Information not available 05/22/2022 Do you or have you ever used e-cigarettes or vape? Never used electronic cigarettes [email or web address] Information not available 09/29/2019 What is your exercise level? Occasional [email or web address] Information not available 02/17/2017 Do you use any illicit or recreational drugs? No Information not available 05/22/2022 Do you or have you ever used any other forms of tobacco or nicotine? No Information not available 05/22/2022 What is your level of alcohol consumption? None [email or web address] Information not available 02/17/2017 Are you able to walk independently without assistance or assistive devices? YESWOREST Information not available 05/22/2022 Do you have difficulty doing errands alone? 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 [id number] Information not available 05/22/2022 Do you have difficulty concentrating, remembering or making decisions? No Information no t available 05/22/2022 Family History Relationship Description Onset Age of this Age Resolved Age Notes LastModified by Organization Details LastModified Time Paternal Grandfather Malignant neoplasm of pancreas [email or web address] Not available 04/27 11:12:55 Mother Degeneration of lumbar intervertebr al disc [email or web address] Not available 04/27 11:13:15 Maternal Grandfather Carcinoma of prostate [email or web address] Not available 04/27 11:13:43 Medical History Condition Response Degenerative Disc Disease Y Acid Reflux (GERD) Y Hypertension Y Immunizations Vaccine Type Date Status Note Provider Nam e and Address Organization Details Recorded Time Hep A, ped/adol, 2 dose 3 completed Alejandra Castellano, [employer] J[employer] OPERATOR [address], [place], [address], [place] - [facility] 10/16/2022 10:58:00 Hep B, adult 3 completed Alejandra Castellano, MUD JACK OPERATOR [address], [place], [address], [place] - [facility] 10/16/2022 10:58:00 Pneumococcal conjugate PCV20, polysaccharide [id number] conjugate, adjuvant, PF 3 completed Alejandra Castellano, MUD JACK OPERATOR [address], [place], [address], [place] - [facility] 10/16/2022 10:58:00 Influenza, split virus, quadrivalent, preservative 3 completed Maritza Loza null, [facility] [place] 05/19/2023 15:11:30 Influenza, split virus, trivalent, preservative 4 completed Maritza Loza null, [facility] [place] 04/15/2024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
--- OUTSIDE RECORDS SUMMARY | 2025-07-26 11:57 | XMS_ITS | Encounter Summary ---
Author Organization [facility] Address [address] [place] [address] Care Team Providers Care Equity Structurer Name Role Phone Khadarluz elenaInocencia APRN, DNP Unavailable [phone]- [phone] Ly Morales VALUE STREAM MANAGER Primary Care Provider [phone]- [phone] Encounter Details Date Type Department Care Team (Latest Contact Info) Description 06/19/2025 Travel Social History Tobacco Use Types Packs/Day [...] EST Appointment [facility] [address] [place] [address] 06/20/2026 9:50 AM EST Clinical Support [facility] [address], [address] [place] [address] 06/20/2026 11:00 AM EST Office Visit [facility]rology [address], [address] [place] [address] Helene Pal APRN, DNP [address] [place] [address] documented as of this encounter Visit Diagnoses Not on filedocumented in this encounter Additional Health Concerns Assessment Noted Time A fall risk assessment has been complete d for the patient 03/13/2025 8:50 AM EDT A Body Mass Index follow-up plan has been documented for the patient 03/15/2025 12:25 PM EDT documented as of this encounter Care Teams Equity Structurer Relationship Specialty Start Date End Date Ly Morales APRN [address] [place] [address] PCP - General 12/29/22 Inocencia Hastings APRN, DNP [address] [place] [address] Nurse Practitioner Neurosurgery 07/11/22 documented as of this encounter
--- OUTSIDE RECORDS SUMMARY | 2025-07-26 11:57 | XMS_ITS | Encounter Summary ---
Author Organization Healthcare Address [address] [place] [address] Care Team Providers Care First Sampler Name Role Phone Khadarluz elena Inocencia Powers REHABILITATION TEAM LEAD, DNP Unavailable [phone]- [phone] Ly Morales REHABILITATION TEAM LEAD Primary Care Provider [phone]- [phone] Helene Pal REHABILITATION TEAM LEAD, DNP Unavailable [phone] Encounter Details Date Type Department Care Team (Latest Contact Info) Description 06/20/2025 Travel Social History Tobacco Use Types Packs/Day [...] difficult at all 06/20/2025 1:19 PM EST Thar leonides, Serina Richter LPN documented as of this encounter Plan of Treatment Upcoming Encounters Date Type Department Care Team (Late st Contact Info) Description 06/20/2026 8:45 AM EST Appointment [facility] [address] [place] [address] 06/20/2026 9:50 AM EST Clinical Support [facility] [address], [address] [place] [phone] 06/20/2026 11:00 AM EST Office Visit [facility]rology [address], [address] [place] [address] Helene Pal APRN, DNP [address] [address] documented as of this encounter Visit Diagnoses Not on filedocumented in this encounter Additional Health Concerns Assessment Noted Time A fall risk assessment has been complete d for the patient 06/20/2025 1:19 PM EST A Body Mass Index follow-up plan has been documented for the patient 06/20/2025 1:52 PM EST documented as of this encounter Care Teams First Sampler Relationship Specialty Start Date End Date Ly Morales APRN [address] [place] [address] PCP - General 12/29/22 Inocencia Hastings APRN, DNP [address] [facility] [address] [place] [address] Nurse Practitioner Neurosurgery 07/11/22 Helene Pal APRN, DNP [address] [facility] [place] [address] Nurse Practitioner Urology 06/20/25 documented as of this encounter
--- OUTSIDE RECORDS SUMMARY | 2025-07-26 11:57 | XMS_ITS | Data Portability ---
Author Organization [facility] Address [address] [place] [address] Care Team Providers Care Venetian Blind Mechanic Name Role Phone YVES BLACKMAN Referring [...] auto diff 2024 025 HALI [facility], [address], [address], [place], [address], 05/10/2025 09:07:56 carbamaze pine, serum or plasma 2024 025 COEUR D ALENE [facility], [address], [place] [address], [place], [address], 05/10/2025 09:07:57 thyroid panel, serum 2024 025 COEUR D ALENE [facility], [address], [place] [address], [place], [address], 05/10/2025 09:07:57 CMP, serum or plasma 2024 025 HALI [facility], [address], [place], [place], [address], 05/10/2025 09:07:56 lipid panel, serum 2024 025 HALI [facility], [address], [place] [address], [place], [address], 05/10/2025 09:07:57 Referral psychiatr ist referral 2024 bubba Howell MD, [address] [place] [address], [place], [address], 05/30/2025 11:09:03 Procedures None recorded. Surgeries None recorded. Imaging None recorded. Medication Orders oxcarbaze pine 600 mg tablet 2024 [facility], [address] [place] [address], [address], 06/09/2025 10:12:25 quetiapin e 100 mg tablet [address], [address], 06/09/2025 10:24:52 duloxetin e 60 mg capsule,d elayed release [address], [address], 06/09/2025 10:24:52 duloxetin e 30 mg capsule,d elayed release [address], [address], 06/09/2025 10:25:27 oxcarbaze pine 300 mg tablet 2024 025 [facility], [address] [place] [address], [address], 06/09/2025 10:14:12 quetiapin e 100 mg tablet [address], [address], 05/19/2025 09:48:10 Patient TargetsNo targets recorded. Patient Instructions Encounter Date Encounter Id Patient Instructions Last Modified By Organization Details Last Modified Time 05/19/2025 [id number] Discussed R/B/SE /A of medications, including sedation, and patient endorsed understanding. Reviewed safety plan. Pt given crisis numbers and has identified support persons. RTC 3 weeks to adjust medications and assess effectiveness or sooner if needed. Not available 05/19/2025 12:06:46 06/09/2025 [id number] food assistance program referral* - pt with 2 children on disability loosing SNAP benefits. Not available 06/30/2025 09:43:41 Discussed R/B/SE /A of medications, and patient endorsed understanding. PDMR revd. Reviewed safety plan. Pt has crisis contact numbers and support persons identified. 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 Referring Physician: Alejandra Castellano, Family Medicine, Encounter Date: 05/09/2025 Results Created Date Observation Date Name Description Value Unit Range Abnormal Flag Note LastModifiedBy Organization Detail LastModifiedTime 05/09/2005/10/2025 CBC WITH DIFFE RENTI AL/PL ATELE T WBC 8.0 x10e3 /uL 3.4-10 .8 normal Not Available [facility] ([facility]) [address] [facility], [place], [address], 05/10/2025 09:07:55 05/09/20 05/10/2025 CBC WITH DIFFE RENTI AL/PL ATELE T RBC 4.99 x10e6 /uL 4.14-5 .80 normal Not Available [facility] ([facility]) [address] [facility], [place], [address], 05/10/2025 09:07:55 05/09/20 25 05/10/2025 CBC WITH DIFFE RENTI AL/PL ATELE T hemoglobin 14.8 g/dL 13.0-1 7.7 normal Not Available [facility] ([facility]) [address] [place], [address], 05/10/2025 09:07:55 05/09/2005/10/2025 CBC WITH DIFFE RENTI AL/PL ATELE T hematocrit 45.4 % 37.5-5 1.0 normal Not Available [facility] ([facility]) [address] [place], [address], 05/10/2025 09:07:55 05/09/2005/10/2025 CBC WITH DIFFE RENTI AL/PL ATELE T MCV 91 fL 79-97 normal Not Available [facility] ([facility]) [address] [place], [address], 05/10/2025 09:07:55 05/09/2005/10/2025 CBC WITH DIFFE RENTI AL/PL ATELE T MCH 29.7 pg 26.6-3 3.0 normal Not Available [facility] ([facility]) [address] [place], [address], 05/10/2025 09:07:55 05/09/2005/10/2025 CBC WITH DIFFE RENTI AL/PL ATELE T MCHC 32.6 g/dL 31.5-3 5.7 normal Not Available [facility] ([facility]) [address] [place], [address], 05/10/2025 09:07:55 09/30/20 25 05/10/2025 CBC WITH DIFFE RENTI AL/PL ATELE T RDW 13.5 % 11.6-1 5.4 Not Available [facility] ([facility]) [address] [facility], [place], [address], 05/10/2025 09:07:55 05/09/20 25 05/10/2025 CBC WITH DIFFE RENTI AL/PL ATELE T platelets 278 x10e3 /uL 150-45 0 normal Not Available [facility] ([facility]) [address] [facility], [place], [address], 05/10/2025 09:07:55 05/09/20 25 05/10/2025 CBC WITH DIFFE RENTI AL/PL ATELE T neutrophils 67 % not estab. normal Not Available [facility] ([facility]) [address] [facility], [place], [address], 05/10/2025 09:07:55 05/09/20 25 05/10/2025 CBC WITH DIFFE RENTI AL/PL ATELE T lymphs 21 % not estab. normal Not Available [facility] ([facility]) [address] [facility], [place], [address], 05/10/2025 09:07:55 05/09/20 25 05/10/2025 CBC WITH DIFFE RENTI AL/PL ATELE T monocytes 9 % not estab. normal Not Available [facility] ([facility]) [address] [facility], [place], [address], 05/10/2025 09:07:55 05/09/20 25 05/10/2025 CBC WITH DIFFE RENTI AL/PL ATELE T eos 2 % not estab. normal Not Available [facility] ([facility]) [address] [facility], [place], [address], 05/10/2025 09:07:55 05/09/20 25 05/10/2025 CBC WITH DIFFE RENTI AL/PL ATELE T basos 1 % not estab. normal Not Available [facility] ([facility]) [address] [facility], [place], [address], 05/10/2025 09:07:55 05/09/20 25 05/10/2025 CBC WITH DIFFE RENTI AL/PL ATELE T immature cells AUTO PARTS CLERK Not Available [facility] ([facility]) [address] [facility], [place], [address], 05/10/2025 09:07:55 05/09/20 25 05/10/2025 CBC WITH DIFFE RENTI AL/PL ATELE T neutrophils (absolute) 5.4 x10e3 /uL 1.4-7. 0 normal Not Available [facility] ([facility]) [address] [facility], [place], [address], 05/10/2025 09:07:55 05/09/20 25 05/10/2025 CBC WITH DIFFE RENTI AL/PL ATELE T lymphs (absolute) 1.7 x10e3 /uL 0.7-3. 1 normal Not Available [facility] ([facility]) [address] [place], [address], 05/10/2025 09:07:55 05/09/20 25 05/10/2025 CBC WITH DIFFE RENTI AL/PL ATELE T monocytes(ab solute) 0.7 x10e3 /uL 0.1-0. 9 normal Not Available [facility] ([facility]) [address] [place], [address], 05/10/2025 09:07:55 05/09/20 25 05/10/2025 CBC WITH DIFFE RENTI AL/PL ATELE T eos (absolute) 0.2 x10e3 /uL 0.0-0. 4 normal Not Available [facility] ([facility]) [address] [facility], [place], [address], 05/10/2025 09:07:55 05/09/20 25 05/10/2025 CBC WITH DIFFE RENTI AL/PL ATELE T baso (absolute) 0.0 x10e3 /uL 0.0-0. 2 normal Not Available [facility] ([facility]) [address] [facility], [place], [address], 05/10/2025 09:07:55 05/09/20 25 05/10/2025 CBC WITH DIFFE RENTI AL/PL ATELE T immature granulocytes 0 % not estab. Not Available [facility] ([facility]) [address] [facility], [place], [address], 05/10/2025 09:07:55 05/09/2005/10/2025 CBC WITH DIFFE RENTI AL/PL ATELE T immature grans (abs) 0.0 x10e3 /uL 0.0-0. 1 Not Available [facility] ([facility]) [address] [facility], [place], [address], 05/10/2025 09:07:55 05/09/20 25 05/10/2025 CBC WITH DIFFE RENTI AL/PL ATELE T NRBC [employer] CLERK Not Available [facility] ([facility]) [address] [facility], [place], [address], 05/10/2025 09:07:55 05/09/20 25 05/10/2025 CBC WITH DIFFE RENTI AL/PL ATELE T hematology comments: AUTO [employer]S CLERK Not Available [facility] ([facility]) [address] [facility], [place], [address], 05/10/2025 09:07:55 05/09/20 25 05/10/2025 COMP. METAB OLIC PANEL (14) glucose 103 mg/dL 70-99 above high normal Not Available [facility] ([facility]) [address] [facility], [place], [address], 05/10/2025 09:07:56 05/09/20 25 05/10/2025 COMP. METAB OLIC PANEL (14) BUN 12 mg/dL 6-20 normal Not Available [facility] ([facility]) [address] [facility] [place], [address], 05/10/2025 09:07:56 05/09/20 25 05/10/2025 COMP. METAB OLIC PANEL (14) creatinine 0.98 mg/dL 0.76-1 .27 normal Not Available [facility] ([facility]) [address] [facility] [place], [address], 05/10/2025 09:07:56 05/09/20 25 05/10/2025 COMP. METAB OLIC PANEL (14) eGFR 102 mL/mi n/1.7 3 >59 normal Not Available [facility] ([facility]) [address] [facility] [place], [address], 05/10/2025 09:07:56 05/09/20 25 05/10/2025 COMP. METAB OLIC PANEL (14) BUN/creatini ne ratio 12 9-20 normal Not Available [facility] ([facility]) [address] [facility] [place], [address], 05/10/2025 09:07:56 05/09/20 25 05/10/2025 COMP. METAB OLIC PANEL (14) sodium 142 mmol/ L 134-14 4 normal Not Available [facility] ([facility]) [address] [facility] [place], [address], 05/10/2025 09:07:56 05/09/20 25 05/10/2025 COMP. METAB OLIC PANEL (14) potassium 4.3 mmol/ L 3.5-5. 2 normal Not Available [facility] ([facility]) [address] [facility] [place], [address], 05/10/2025 09:07:56 05/09/20 25 05/10/2025 COMP. METAB OLIC PANEL (14) chloride 107 mmol/ L 96-106 above high normal Not Available [facility] ([facility]) [address] [facility] [place], [address], 05/10/2025 09:07:56 05/09/20 25 05/10/2025 COMP. METAB OLIC PANEL (14) carbon dioxide, total 20 mmol/ L 20-29 normal Not Available [facility] ([facility]) [address] [place], [address], 05/10/2025 09:07:56 05/09/20 25 05/10/2025 COMP. METAB OLIC PANEL (14) calcium 9.2 mg/dL 8.7-10 .2 normal Not Available [facility] ([facility]) [address] [facility] [place], [address], 05/10/2025 09:07:56 05/09/20 25 05/10/2025 COMP. METAB OLIC PANEL (14) protein, total 7.0 g/dL 6.0-8. 5 normal Not Available [facility] ([facility]) [address] [facility] [place], [address], 05/10/2025 09:07:56 05/09/2005/10/2025 COMP. METAB OLIC PANEL (14) albumin 4.6 g/dL 4.1-5. 1 normal Not Available [facility] ([facility]) [address] [facility] [place], [address], 05/10/2025 09:07:56 05/09/2005/10/2025 COMP. METAB OLIC PANEL (14) globulin, total 2.4 g/dL 1.5-4. 5 Not Available [facility] ([facility]) [address] [facility] [place], [address], 05/10/2025 09:07:56 05/09/20 25 05/10/2025 COMP. METAB OLIC PANEL (14) bilirubin, total 0.7 mg/dL 0.0-1. 2 normal Not Available [facility] ([facility]) [address] [facility] [place], [address], 05/10/2025 09:07:56 05/09/20 25 05/10/2025 COMP. METAB OLIC PANEL (14) alkaline phosphatase 102 IU/L 47-123 normal Not Available [facility] ([facility]) [address] [facility] [place], [address], 05/10/2025 09:07:56 05/09/20 25 05/10/2025 COMP. METAB OLIC PANEL (14) AST (SGOT) 44 IU/L 0-40 above high normal Not Available [facility] ([facility]) [address] [facility] [place], [address], 05/10/2025 09:07:56 05/09/20 25 05/10/2025 COMP. METAB OLIC PANEL (14) ALT (SGPT) 79 IU/L 0-44 above high normal Not Available [facility] ([facility]) [address] [place], [address], 05/10/2025 09:07:56 05/09/20 25 05/10/2025 LIPID PANEL cholesterol, total 164 mg/dL 100-19 9 normal Not Available [facility] ([facility]) [address] [facility] [place], [address], 05/10/2025 09:07:56 05/09/20 25 05/10/2025 LIPID PANEL triglyceride s 104 mg/dL 0-149 normal Not Available [facility] ([facility]) [address] [facility] [place], [address], 05/10/2025 09:07:56 05/09/20 25 05/10/2025 LIPID PANEL HDL cholesterol 35 mg/dL >39 below low normal Not Available [facility] ([facility]) [address] [facility] [place], [address], 05/10/2025 09:07:56 05/09/20 25 05/10/2025 LIPID PANEL VLDL cholesterol lizzy 19 mg/dL 5-40 Not Available [facility] ([facility]) [address] [facility] [place], [address], 05/10/2025 09:07:56 05/09/20 25 05/10/2025 LIPID PANEL LDL chol calc ([facility]) 110 mg/dL 0-99 above high normal Not Available [facility] ([facility]) [address] [place], [address], 05/10/2025 09:07:56 05/09/20 25 05/10/2025 LIPID PANEL LDL calc comment: AUTO PARTS CLERK Not Available [facility] ([facility]) [address] [facility] [place], [address], 05/10/2025 09:07:56 05/09/20 25 05/10/2025 THYRO ID PANEL WITH TSH TSH 1.430 uIU/m L 0.450- 4.500 normal Not Available [facility] ([facility]) [address] [place], [address], 05/10/2025 09:07:57 05/09/2005/10/2025 THYRO ID PANEL WITH TSH thyroxine (T4) 8.5 ug/dL 4.5-12 .0 normal Not Available [facility] ([facility]) [address] [place], [address], 05/10/2025 09:07:57 05/09/20 25 05/10/2025 THYRO ID PANEL WITH TSH T3 uptake 25 % 24-39 normal Not Available [facility] ([facility]) [address] [place], [address], 05/10/2025 09:07:57 05/09/2005/10/2025 THYRO ID PANEL WITH TSH free thyroxine index 2.1 1.2-4. 9 normal Not Available [facility] ([facility]) [address] [place], [address], 05/10/2025 09:07:57 05/09/20 25 05/10/2025 CARBA MAZEP [...] repea t josh sis Not Available [facility] ([facility]) [address] [facility], [place], [address], 05/10/2025 09:07:57 06/21/20 24 06/21/2024 josé miguel metry No observ ation record ed. [facility] (Radiology) [address] [place] [address] , [place], [address], 06/21/2024 16:48:12 06/22/20 24 06/22/2024 XR, foot, 3 or more view No observ ation record ed. [address], [place], [address], 06/23/2024 09:24:21 06/22/20 24 06/22/2024 XR, foot, 3 or more view No observ ation record ed. [place] [id number] [facility] [address], [place], [address], 06/23/2024 09:24:06 06/22/20 24 06/22/2024 CT, angio gram, abdom en, w/ contr ast No observ ation record ed. [place] [id number] [facility] [address], [place], [address], 06/23/2024 09:22:53 06/23/20 24 06/22/2024 US, doppl er echoc ardio gram, w/ color flow No observ ation record ed. [facility] [address], [place], [place], [address], 06/23/2024 09:20:28 06/23/20 24 06/23/2024 XR, chest No observ ation record ed. [facility] [address], [place], [place], [address], 06/23/2024 11:42:07 06/27/20 24 06/22/2024 US, doppl er, venou s No observ ation record ed. [facility] [address], [place], [address], 06/30/2024 09:49:20 06/27/20 24 06/22/2024 arter ial study , lower extre mity, compl ete No observ ation record ed. [facility] [address], [place], [place], [address], 06/30/2024 09:45:06 12/10/19 25 2024 XR, ankle , 3 or more view No observ ation record ed. [facility] [address], [place], [place], [address], 2024 10:54:00 12/10/19 25 2024 XR, foot, 3 or more view No observ ation record ed. [facility] [address], [place], [place], [address], 2024 14:33:54 02/10/20 25 02/07/2025 US, liver No observ ation record ed. [facility] [address], [place], [place], [address], 02/13/2025 08:26:35 03/03/20 25 03/03/2025 CT, chest , w/o contr ast No observ [facility] [address], [place], [address], 03/03/2025 09:12:51 03/03/2003/03/2025 XR, foot, 3 or more view No observ ation record ed. [facility] [address], [place], [address], 03/03/2025 09:36:36 03/24/2003/24/2025 CT, foot, w/wo contr ast No observ ation record ed. [facility] [address], [place], [address], 03/27/2025 10:45:53 Result Notes None recorded. Problems Name Problem SNOMED Code Status Onset Date Resolution Date Notes Provider Name and Address Organization Details Recorded Time Suspecte d COVID-19 247709515 Completed 11/26/2020 Removal Reason: Problem added by user [email or web address] from the [email or web address] watch flag Angelika Serenity null, [place] - [facility] 10:15:17 Suspecte d COVID-19 875872523 Completed 03/25/2021 Removal Reason: Problem marked historic al by user [email or web address] from the [employer]19 watch flag Angelika Serenity null, [place] - [facility] 10:15:17 Hyperten sive disorder 27770920 Active 2015 Alejandra Castellano APRN [address], [place], [address], [place] - [facility] 2 09:50:17 Chronic back pain 883582382 Active 2015 Alejandra Castellano APRN [address], [place], [address], [place] [facility] 2 09:50:08 Acid reflux 070845789 Active 2015 Alejandra Castellano APRN [address], [place], [address], [place] - [facility] 2 09:50:13 Ingrowin g nail 761611586 Completed 201510/07/2016 Mir Javier MD [address], [place], [address], [place] [facility] 7 19:56:38 Cellulit is 365697538 Completed 201510/07/2016 Candelaria Willis null, [place] - [facility] 8 14:49:31 Impacted cerumen 93534372 Completed 201610/29/2016 Candelaria [place] - [facility] 7 08:30:44 Urinary symptoms 881790299 Completed 201603/09/2018 Candelaria [place] [facility] 8 14:49:36 Cellulit is 225619450 Completed 201603/09/2018 Candelaria [place] [facility] 8 14:49:31 Infectio n of toenail 24437025819 296517 Completed 201603/09/2018 Candelaria [place] [facility] 8 14:49:39 Chest discomfo rt 230574874 Completed 201703/09/2018 Candelaria Willis null[place] [facility] 8 14:49:44 Anxiety 46000281 Active 2017 Alejandra Castellano APRN [address], [place], [address], [place] [facility] 2 09:50:10 Lumbosac ral radiculo john 8825603 Active 2017 Alejandra Castellano APRN [address], [place], [address] [facility] 2 09:50:23 Infectio n of toe 054161501 Completed 201812/13/2020 Mir Javier MD [address], [place], [address], [place] [facility] 1 15:25:15 Injury of muscle of right foot 16739115684 119222 Completed 201912/13/2020 Mir Javier MD [address], [place], [address], [place] [facility] 1 15:25:09 Superfic ial puncture wound 719644653 Completed 201912/13/2020 Mir Javier MD [address], [place], [address], [place] [facility] 1 15:25:26 Acute pharyngi tis 750420491 Completed 202010/17/2021 Mir Javier MD [address], [place], [address], [place] [facility] 14:23:13 Family history of diabetes mellitus 845382905 Active 2021 Mir Javier MD [address], [place], [address] [facility] 2 14:23:53 Dizzines s 087885381 Active 2021 Mir Javier MD [address], [place], [address] [facility] 2 13:12:43 Alpha-1- antitryp sin deficien cy 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 2022 Alejandra Castellano APRN [address], [place], [address], [place] [facility] 4 09:16:00 Depressi ve disorder 18979171 Active 2022 Alejandra Castellano APRN [address], [place], [address] [facility] 4 09:15:45 Gastroes ophageal reflux disease without esophagi tis 279546973 Active 2023 Alejandra Castellano APRN [address], [place], [address], [place] [facility] 4 09:15:43 History of alcohol use disorder Active 2024 Magalys Lee APRN [address], [place], [address] [facility] 5 11:56:12 Mixed hyperlip idemia 779985058 Active 2024 Clembrittany Castellano, 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 [address], [place], [address], [place] [facility] 13:54:02 Problem Notes None recorded. Procedures Surgical History Date Name Laterality Status Provider Name and Address Organization Details Recorded Time 07/14/20 24 Medication Reconcilliation completed Maritza Loza [place] - [facility] 07/14/2024 15:39:36 03/28/20 24 Cerumen Removal completed Clembrittany Castellano, 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 [address], [place], [address], [place] [facility] 03/28/2024 16:37:10 02/28/20 23 Dexcom Placement completed Alejandra Castellano 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 [address], [place], [address], [place] - [facility] 02/27/2023 17:04:30 02/28/20 23 Medication Reconcilliation completed Jenni Drake [place] - [facility] 02/27/2023 16:18:27 07/12/20 20 Systolic B/P less than 130 mm Hg [facility] [place] [facility] 07/12/2020 13:30:58 07/12/20 20 Diastolic B/P 80-89 mm Hg completed [facility] [place] [facility] 07/12/2020 13:31:00 03/21/20 20 Systolic B/P less than 130 mm Hg completed [facility] [place] - [facility] 03/21/2020 08:25:39 03/21/20 20 Diastolic B/P 80-89 mm Hg completed [facility] [place] [facility] 03/21/2020 08:25:41 12/16/19 20 Systolic B/P less than 130 mm Hg completed [place] [facility] 12/16/2019 14:03:23 12/16/19 20 Diastolic B/P 80-89 mm Hg completed [place] [facility] 12/16/2019 14:03:26 12/16/19 20 Medication Reconcilliation completed [facility] [place] [facility] 12/16/2019 14:02:06 09/29/19 20 Diastolic B/P greater than or equal to 90 mm Hg completed [facility] [place] [facility] 09/29/2019 09:09:16 09/29/19 20 Systolic B/P 130-139 mm Hg completed [facility] 09/29/2019 09:08:51 08/25/19 20 Diastolic B/P 80-89 mm Hg completed [facility] 08/25/2019 08:49:38 08/25/19 20 Systolic B/P greater than or equal to 140 mm Hg completed [facility] 08/25/2019 08:49:36 08/11/19 18 Back Surgery completed Savanna Powell [place] - [facility] 09/30/2018 14:31:35 07/01/20 17 Toenail Removal/Excision- permanent, partial or complete completed Candelaria Willis [facility] 07/01/2017 09:40:06 06/18/20 16 Toenail Removal/Excision- permanent, partial or complete completed Mir Javier MD [address] [place] [address], [address] - [facility] 06/21/2016 16:04:54 Appendectomy completed Candelaria Willis [place] - [facility] 06/10/2016 16:31:57 Tonsillectomy completed Candelaria Willis [place] - [facility] 06/10/2016 16:32:07 Knee arthroscopy/surger y completed Savanna Powell [place] - [facility] 09/30/2018 14:30:19 Imaging Results None recorded. Procedure Notes None recorded. Medical Equipment None Reported. Allergies Allergen ID Allergen Name Allergen Category Reaction Reaction Severity Criticality Documentation Date Start Date Code Code System Note Provider Name and Address Organization Details Recorded Time 608622 tizanidin e medicatio n Not available Not available Not available 08/22/2021 76304 RxNorm confu maria r Main Kayla falk [place] - [facility] 2 10:34:24 04460 Product containin g penicilli n (product) medicatio n Not available Not available Not available 05/16/20162014 72044 8001 SNOMED React ion: hives short ness [...] User: [email or web address] ;EstTonio Oliver on: 08/24/19 16;Pharm Arnie ied: 06/25/20 11:42AM [...] Disconti nued on: 08/14/19 16 12:19PM; User: [email or web address]; Est. Completi on: 07/28/20 15;Indic ation: back [...] (BMI) Body weight Heart rate Oxygen saturation Respiratory rate Body temperature Systolic And Diastolic Provider Name and Address Organization Details Last Updated DateTime 5 185.42 cm 35.9 kg/m2 511759. 12 g 106 /min 96 % 18 /min 97.9 [degF] 114/76 mm[Hg] Jenni Stears [place] - [facility] 5 10:19:00 Date Recorded Body height Body mass index (BMI) Body weight Heart rate Body temperature Oxygen saturation Respiratory rate Pain severity - 0-10 verbal numeric rating [Score] - Reported Systolic And Diastolic Provider Name and Address Organization Details Last Updated DateTime 5 185.42 cm 33.8 kg/m2 555618. 65 g 80 /min 97.9 [degF] 96 % 18 /min 5 122/82 mm[Hg] Maritza Loza [place] - [facility] 5 08:18:51 Date Recorded Body height Body mass index (BMI) Body weight Respiratory rate Pain severity - 0-10 verbal numeric rating [Score] - Reported Heart rate Oxygen saturation Systolic And Diastolic Provider Name and Address Organization Details Last Updated DateTime 5 185.42 cm 34.6 kg/m2 026536. 2 g 16 /min 4 76 /min 98 % 132/86 mm[Hg] Anabella Miranda [place] - [facility] 5 09:03:30 Date Recorded Body height Body mass index (BMI) Body weight Respiratory rate Pain severity - 0-10 verbal numeric rating [Score] - Reported Heart rate Oxygen saturation Systolic And Diastolic Provider Name and Address Organization Details Last Updated DateTime 5 185.42 cm 33.4 kg/m2 615898. 67 g 16 /min 0 87 /min 98 % 102/64 mm[Hg] Anabella Miranda [facility] 5 09:51:39 Date Recorded Body height Body mass index (BMI) Body weight Body temperature Heart rate Oxygen saturation Respiratory rate Pain severity - 0-10 verbal numeric rating [Score] - Reported Systolic And Diastolic Provider Name and Address Organization Details Last Updated DateTime 4 185.42 cm 35.2 kg/m2 712320. 16 g 98.3 [degF] 87 /min 98 % 18 /min 0 116/80 mm[Hg] Maritza Loza [place] - [facility] 4 15:40:35 Social History Question Answer Notes LastModified by Organizat ion Details LastModified Time Tobacco Smoking Status Never Smoker Candelaria falk [place] - [facility] 06/10/2016 16:31:45 Able To Swim? Yes Information not available 05/22/2022 Do You Have An Advance Directive? No [email or web address] Information not available 02/17/2017 Do You Wear A Helmet When Biking? No Information not available 05/22/2022 Are You Blind Or Do You Have Difficulty Seeing? No Information not available 05/22/2022 Is Blood Transfusion Acceptable In An Emergency? Yes Information not available 05/22/2022 What Is Your Level Of Caffeine Consumption? Moderate [email or web address] Information not available 02/17/2017 How Much Tobacco [...] Do You Have Serious Difficulty Hearing? No [email or web address] Information not available 02/17/2017 What Type Of Diet Are You Following? REGULAR Information not available 05/22/2022 Which Illicit Or Recreational Drugs Have You Used? No [email or web address] Information not available 02/17/2017 Have You Processed [...] Or The Highest Degree You Have Received? [id number] Information not available 05/22/2022 Swimming/diving Yes Informati [...] Do You Have A Medical Power Of Hand Spring Repairer Helper? No Information not available 05/22/2022 What Was The Date Of Your Most Recent Tobacco Screening? 06/09/2025 Information not available 06/09/2025 How Many Children Do You Have? 2 Information not available 05/22/2022 Do You Use Protection During Sex? No Information not available 02/17/2017 Do You Use Protection Against STDs? No Information not available 05/22/2022 What Is Your Relationship Status? [email or web address] Information not available 02/17/2017 Seat Belts Used [...] 05/22/2022 Do You Use Sunscreen Routinely? No [email or web address] Information not available 02/17/2017 Has Tobacco Cessation [...] used smokeless tobacco? Never used smokeless tobacco [email or web address] Information not available 09/29/2019 Are you currently employed? Yes [email or web address] Information not available 02/17/2017 Do you have transportation difficulties? No Information not available 05/22/2022 Are you able to care for yourself independently? Yes [email or web address] Information not available 02/17/2017 Do you have difficulty dressing, bathing, grooming, or toileting? No Information not available 05/22/2022 Do you or have you ever used e-cigarettes or vape? Never used electronic cigarettes [email or web address] Information not available 09/29/2019 What is your exercise level? Occasional [email or web address] Information not available 02/17/2017 Do you use any illicit or recreational drugs? No Information not available 05/22/2022 Do you or have you ever used any other forms of tobacco or nicotine? No Information not available 05/22/2022 What is your level of alcohol consumption? None [email or web address] Information not available 02/17/2017 Are you able to walk independently without assistance or assistive devices? [email or web address] Information not available 05/22/2022 Do you have difficulty doing errands alone? 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 [id number] Information not available 05/22/2022 Do you have difficulty concentrating, remembering or making decisions? No Information no t available 05/22/2022 Family History Relationship Description Onset Age of this Age Resolved Age Notes LastModified by Organization Details LastModified Time Paternal Grandfather Malignant neoplasm of pancreas [email or web address] Not available 04/27 11:12:55 Mother Degeneration of lumbar intervertebr al disc [email or web address] Not available 04/27 11:13:15 Maternal Grandfather Carcinoma of prostate [email or web address] Not available 04/27 11:13:43 Medical History Condition Response Acid Reflux (GERD) Y Hypertension Y Degenerative Disc Disease Y Immunizations Vaccine Type Date Status Note Provider Nam e and Address Organization Details Recorded Time Hep A, ped/adol, 2 dose 3 completed Alejanrda Castellano APRN [address], [place], [address], [place] - [facility] 10/16/2022 10:58:00 Hep B, adult 3 completed Alejandra Castellano APRN [address], [place], [address], [place] - [facility] 10/16/2022 10:58:00 Pneumococcal conjugate PCV20, polysaccharide [id number] conjugate, adjuvant, PF 3 completed Alejandra Castellano, 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 [address], [place], [address], [facility] - [facility] 10/16/2022 10:58:00 Influenza, split virus, quadrivalent, preservative 3 completed Maritza Loza null, [facility] 05/19/2023 15:11:30 Influenza, split virus, trivalent, preservative 4 completed Maritza Loza null, [facility] 04/15/2024 14:32:22 Influenza, split virus, trivalent, PF 5 completed Maritza Loza null, [facility] 05/09/2025 08:57:30 Hep A, adult 8 completed Not Available [facility] 08/27/2019 03:55:36 Hep B, adolescent or pediatric 1 completed Jenni Stears null, [facility] 06/10/2022 17:40:30 Tdap 2 completed Jenni Stears null, [facility] 06/10/2022 17:40:30 Influenza, split virus, quadrivalent, preservative 5 completed Jenni Stears null, [facility] 06/10/2022 17:40:30 Influenza, split virus, quadrivalent, preservative 7 completed Jenni Stears null, [facility] 06/10/2022 17:40:30 COVID-19, mRNA, LNP-S, PF, 100 mcg/0.5mL dose or 50 mcg/0.25mL dose 1 completed Jenni Stears null, [facility] 06/10/2022 17:40:30 COVID-19, mRNA, LNP-S, PF, 100 mcg/0.5mL dose or 50 mcg/0.25mL dose 1 completed Jenni Stears null, [facility] 06/10/2022 17:40:30 Influenza, split virus, quadrivalent, PF 6 completed Jenni Stears null, [facility] 06/10/2022 17:40:30 Influenza, split virus, quadrivalent, preservative 9 completed Jenni Stears null, [place] - [facility] 06/10/2022 17:40:31 Influenza, split virus, quadrivalent, preservative 2 completed Jenni Stears null, [place] [facility] 06/10/2022 17:40:31 Influenza, split virus, quadrivalent, preservative 0 completed Jenni Stears null, [place] [facility] 06/10/2022 17:40:31 pneumococcal polysaccharide PPV23 0 completed Jenni Stears null, [place] - [facility] 06/10/2022 17:40:31 Influenza, split virus, quadrivalent, preservative 8 completed Jenni Stears null, [facility] 06/10/2022 17:40:31 Td (adult), 2 Lf tetanus toxoid, preservative free, adsorbed 5 completed Jenni Stears null, [facility] 06/10/2022 17:40:31 Influenza, split virus, trivalent, PF 0 completed Maritza Loza null, [place] - [facility] 11/17/2022 14:44:56 COVID-19, mRNA, LNP-S, bivalent, PF, 50 mcg/0.5 mL or 25mcg/0.25 mL dose 3 completed Jenni Stears null, [place] - [facility] 03/27/2023 09:20:19 Past Encounters Encounter ID Performer Location Encounter Start Date Encounter Closed Date Diagnosis/Indication Diagnosis SNOMED-CT Code Diagnosis ICD10 Code Diagnosis IMO Codes Diagnosis Note [id number] Mir Javier MD [facility] [address] [address] 06/10/2016 15:57:26 06/10/2016 16:47:05 Influenza vaccine needed 9401054357 106 Z23 Cellulitis 817889249 L03 .90 Ingrowing nail 939290513 L60.0 Chronic back pain 660019 002 M54.10 Hypertensive disorder 38 570044 I10 [id number] Mir Javier MD [facility] [address] [place] [address] 06/18/2016 14:21:53 06/23/2016 14:29:10 Ingrowing nail 976361914 L60.0 [id number] Mir Javier MD [place] [address] [place] [address] 10/07/2016 09:09:48 10/07/2016 10:57:25 Hypertensive disorder 21258224 I10 Chronic back pain 499548 002 M54.10 Renewal of prescription 545840084 Z76.0 Impacted cerumen 8081356 6 H61.23 Acid reflux 322498874 K2 1.9 [id number] Mir Javier MD [address] [place] [address] 10/29/2016 08:20:51 10/29/2016 16:56:10 Hypertensive disorder 91657206 I10 Chronic back pain 982301 002 M54.10 Hyperlipid emia screening 212425990 Z13.904 [id number] Mir Javier MD [place] [address] [place] [address] 12/04/2016 08:09:34 12/04/2016 09:15:43 Hypertensive disorder 24713049 I10 Chronic back pain 426902 002 M54.10 Renewal of prescription 127728252 Z76.0 Body mass index 25-29 - overweight 696562755 Z68.29 Acid reflux 851780005 K2 1.9 [id number] Mir Javier MD [address] [place] [address] 01/01/2017 08:14:47 01/02/2017 08:05:00 Acute urinary tract infection 730584577 N39.0 Exposure t o sexually transmissible disorder 915951299 Z20.2 Acid reflux 794624969 K2 1.9 Chronic back pain 325674 002 M54.10 Hypertensive disorder 38 319046 I10 Urinary symptoms 6315169 08 R39.9 [id number] Mir Javier MD [address] [place] [address] 02/17/2017 08:17:07 02/17/2017 09:21:51 Chronic back pain 999949615 M54.10 Urinary symptoms 7622672 08 R39.9 Acid reflux 645348763 K2 1.9 Hypertensive disorder 38 274181 I10 [id number] Mir Javier MD [address] [place] [address] 04/02/2017 08:39:58 04/02/2017 09:36:20 Chronic back pain 859358702 M54.10 Hypertensive disorder 38 358660 I10 Body mass index 25-29 - overweight 052390746 Z68.29 Acid reflux 858153113 K2 1.9 [id number] Mir Javier MD [address] [place] [address] 06/03/2017 08:14:45 06/03/2017 09:41:29 Chronic back pain 729618632 M54.10 Ingrowing toenail 593850 009 L60.0 Administra tion of influenza vaccine 51490940 Z23 Hypertensive disorder 38 187157 I10 Cellulitis 831532114 L03 .90 [id number] Mir Javier MD [address] [place] [address] 07/01/2017 08:16:48 07/01/2017 09:50:01 Ingrowing toenail 378904528 L60.0 Cellulitis 489220519 L03 .90 Chronic back pain 521285 002 M54.10 Hypertensive disorder 38 451485 I10 Infection of toenail 653 5785104 4606944 B99.9 [id number] Mir Javier MD [address] [place] [address] 09/30/2017 09:44:22 09/30/2017 10:28:09 Hypertensive disorder 65969726 I10 [id number] Mir Javier MD [address] [place] [address] 10/29/2017 15:00:38 10/29/2017 16:31:50 Hypertensive disorder 51970012 I10 Chronic back pain 805769 002 M54.10 Chest discomfort 6446020 09 R07.89 Anxiety 28427977 F41.9 [id number] Mir Javier MD [address] [place] [address] 11/12/2017 14:39:54 11/12/2017 16:51:02 Anxiety 71953517 F41.9 Tachycardia 3609277 R00. 0 Chest discomfort 4900100 09 R07.89 Chronic back pain 762476 002 M54.10 Hypertensive disorder 38 346824 I10 [id number] Mir Javier MD [address] [place] [address] 12/30/2017 13:32:41 12/30/2017 15:28:58 Hypertensive disorder 95906756 I10 Body mass index 25-29 - overweight 609693086 Z68.29 Overweight 652954420 E66 .3 Chronic back pain 817262 002 M54.10 Anxiety 13429710 F41.9 [id number] Mir Javier MD [address] [place] [address] 03/09/2018 13:52:19 03/09/2018 14:54:41 Hypertensive disorder 06341161 I10 Chronic back pain 242589 002 M54.10 Acid reflux 437997302 K2 1.9 Anxiety 90725774 F41.9 [id number] Mir Javier MD [address] [place] [address] 04/21/2018 15:59:39 04/21/2018 18:12:02 Chronic back pain 709538513 M54.10 Body mass index 25-29 - overweight 072777336 Z68.29 Overweight 950744321 E66 .3 Anxiety 35390956 F41.9 Hypertensive disorder 38 254271 I10 [id number] Mir Javier MD [address] [place] [address] 05/13/2018 14:38:24 05/13/2018 17:45:49 Chronic back pain 377179815 M54.10 Administra tion of influenza vaccine 19189176 Z23 Hypertensive disorder 38 572966 I10 Acid reflux 624094920 K2 1.9 [id number] Mir Javier MD [address] [place] [address] 06/01/2018 13:28:54 06/01/2018 15:22:18 Chronic back pain 216306897 M54.10 Hypertensive disorder 38 191945 I10 Acid reflux 437584576 K2 1.9 Anxiety 80792839 F41.9 Radicular pain 39093959 M54.10 Pain in ri ght lower limb 172344489 M79.547 [id number] Mir Javier MD [address] [place] [address] 06/30/2018 09:21:42 06/30/2018 10:43:17 Chronic back pain 426877278 M54.10 Anxiety 86977205 F41.9 Acid reflux 435132070 K2 1.9 Hypertensive disorder 38 740146 I10 [id number] Mir Javier MD [address] [place] [address] 07/27/2018 12:23:04 07/27/2018 15:31:41 Chronic back pain 015442076 M54.10 Lumbosacra l radiculopathy 0325884 M54.16 Hypertensive disorder 38 315490 I10 Active or passive immunization 977543365 Z23 Anxiety 31466589 F41.9 Acid reflux 124406574 K2 1.9 [id number] Shi Cavazos [address] [place] [address] 08/11/2018 13:19:24 08/11/2018 14:16:04 Chronic back pain 799494512 M54.16 [id number] Krystal Welsh [address] [place] [address] 09/30/2018 14:07:49 09/30/2018 15:22:54 Chronic back pain 353462203 G89.29 Pain of hip region 80192 002 M25.666 [id number] Mir Javier MD [address] [place] [address] 10/13/2018 14:44:45 10/13/2018 16:07:06 Hypertensive disorder 82235918 I10 Chronic back pain 360384 002 M54.10 Anxiety 13346921 F41.9 Acid reflux 778138317 K2 1.9 Renewal of prescription 644644598 Z76.0 Flank pain 672068764 R10 .9 Pain of to e of left foot 3238001783 39441 M79.675 Cellulitis of toe 147578 04 L03.032 Urinary tr act infectious disease 58871959 N39.0 Lumbosacra l radiculopathy 7574345 M54.16 [id number] Mir Jaiver MD [address] [address] 10/20/2018 14:48:32 10/20/2018 16:00:32 Pharyngitis 292085196 J02.9 Upper resp iratory infection 60724979 J06.9 Lumbosacra l radiculopathy 6431027 M54.16 Anxiety 42307748 F41.9 Acid reflux 486233018 K2 1.9 Chronic back pain 149269 002 M54.10 Hypertensive disorder 38 276569 I10 Cellulitis of toe 524560 04 L03.032 Lymphadenitis 31401537 I 88.9 [id number] Mir Javier MD [address] [place] [address] 11/02/2018 13:50:33 11/02/2018 15:09:01 Infection of toe 471897277 L08.9 Anxiety 31316819 F41.9 Acid reflux 730539672 K2 1.9 Chronic back pain 626699 002 M54.10 Hypertensive disorder 38 982180 I10 Urinary tr act infectious disease 92374741 N39.0 [id number] Mir Javier MD [address] [address] 11/24/2018 14:01:40 11/24/2018 14:37:03 Infection of toe 955965007 L08.9 Lumbosacra l radiculopathy 0323031 M54.16 Anxiety 84732183 F41.9 Acid reflux 446088730 K2 1.9 Chronic back pain 606126 002 M54.10 Hypertensive disorder 38 908983 I10 Urinary tr act infectious disease 28106797 N39.0 [id number] Mir Javier MD [facility] [address] [place], [place] [address] [place] [address] 01/13/2019 14:54:28 01/13/2019 16:11:42 Hypertensive disorder 71517800 I10 Chronic back pain 785037 002 M54.10 Lumbosacra l radiculopathy 0527772 M54.16 Acid reflux 396805020 K2 1.9 Anxiety 75754380 F41.9 Screening for cardiovascular system disease 647946992 Z13.6 Tachycardia 4825481 R00. 0 Infection of toe 9783933 06 L08.9 [id number] Mir Javier MD [address] [place] [address] 04/27/2019 10:48:44 04/27/2019 13:32:01 Lumbosacral radiculopathy 1417684 M54.16 Chronic back pain 919550 002 M54.10 Hypertensive disorder 38 375474 I10 Anxiety 14719161 F41.9 Body mass index 30+ - obesity 023091270 Z68.31 [id number] Mir Javier MD [address] [place] [address] 06/14/2019 14:17:53 06/14/2019 15:27:06 Chronic back pain 176864071 M54.10 Lumbosacra l radiculopathy 4399940 M54.16 Administra tion of influenza vaccine 80909185 Z23 Anxiety 61953748 F41.9 Renewal of prescription 542232612 Z76.0 Hypertensive disorder 38 900390 I10 [id number] Mir Javier MD [facility] [address] [place], [place] [address] [place] [address] 08/25/2019 08:39:49 08/25/2019 10:05:14 Lumbosacral radiculopathy 9116756 M54.16 Anxiety 70670178 F41.9 Acid reflux 599978351 K2 1.9 Chronic back pain 127078 002 M54.10 Pain in right foot 18438 08082 66021 M79.164 [id number] Mir Javier MD [facility] [address] [place] [address] 09/29/2019 08:48:06 09/29/2019 11:33:12 Injury of muscle of right foot 9705216705 1360725 S96.901D Closed fra cture of fifth metatarsal bone 02213122 S92.351D Pain in right foot 15456 99961 42199 M79.671 Chronic back pain 103628 002 M54.10 Hypertensive disorder 38 139998 I10 Acid reflux 710756634 K2 1.9 Anxiety 70434356 F41.9 [id number] Mir Javier MD [facility] [address] [place] [address] 12/16/2019 13:36:55 12/16/2019 14:29:53 Low back pain 483380786 M54.5 newly acquired Aftercare 878880494 Z51. 89 Acid reflux 331767490 K2 1.9 Anxiety 52342762 F41.9 Chronic back pain 922624 002 M54.10 Hypertensive disorder 38 181615 I10 Injury of muscle of right foot 6033294919 7094383 S96.901D [id number] Mir Javier MD [place] [address] [place] [address] 03/21/2020 08:05:35 03/21/2020 09:02:56 Anxiety 11022107 F41.9 Hypertensive disorder 38 860590 I10 Acid reflux 033949380 K2 1.9 Chronic back pain 023371 002 M54.10 Puncture w ound of hand 903193699 S61.431A 2nd digit of right hand [id number] Mir Javier MD [facility] [address] [place] [address] 07/12/2020 13:13:47 07/12/2020 14:17:40 General examination of patient 838917216 Z00.00 Hyperlipid emia screening 921615963 Z13.220 Screening for malignant neoplasm of prostate 726305696 Z12.5 Endocrine/ metabolic screening 266834330 Z13.228 Exercises education, guidance, and counseling 292334951 Z71.82 Dietary ma nagement surveillance 380065956 Z71.3 Administra tion of influenza vaccine 13285906 Z23 Acid reflux 072789975 K2 1.9 Anxiety 13569879 F41.9 Chronic back pain 610262 002 M54.10 Hypertensive disorder 38 494347 I10 [id number] Krystal Welsh APRN [place] [address] [place] [address] 11/26/2020 11:06:55 11/26/2020 12:13:56 Gastroesophageal reflux disease 085868810 K21.9 Epigastric pain 59259831 R10.13 [id number] Mir Javier MD [address] [place] [address] 12/13/2020 13:43:36 12/13/2020 14:53:29 Body mass index 30+ - obesity 832329092 Z68.31 Injury of muscle of right foot 3233911008 3352032 S96.901D Lumbosacra l radiculopathy 7424660 M54.16 Anxiety 71598313 F41.9 Acid reflux 476454069 K2 1.9 Hypertensive disorder 38 313972 I10 Chronic back pain 306049 002 M54.10 [id number] Mir aJvier MD [address] [place] [address] 03/21/2021 15:58:15 03/21/2021 16:49:47 Anxiety 51170970 F41.9 Acid reflux 986669442 K2 1.9 Pain in throat 680171494 R07.0 Chronic back pain 911571 002 M54.10 Hypertensive disorder 38 424122 I10 Lumbosacra l radiculopathy 3751313 M54.16 [id number] Mir Javier MD [address] [place] [address] 04/10/2021 11:19:11 04/10/2021 11:40:26 Administration of SARS-CoV-2 antigen vaccine 813530264 Z23 [id number] Mir Javier MD [address] [place] [address] 05/09/2021 08:40:31 05/09/2021 10:28:23 Administration of SARS-CoV-2 antigen vaccine 136212140 Z23 [id number] Jose David Garza DO [place] [address] [place] [address] 08/22/2021 09:43:30 08/22/2021 10:48:16 Viral screening 330397138 Z11.52 COVID-19 524379177 U07.1 Anxiety 57241987 F41.9 [id number] Mir Javier MD [place] [address] [place] [address] 10/17/2021 09:52:49 10/17/2021 11:12:20 Anxiety 62414318 F41.9 Acid reflux 395713958 K2 1.9 Chronic back pain 269622 002 M54.10 Hypertensive disorder 38 668988 I10 Lumbosacra l radiculopathy 8645402 M54.16 Body mass index 30+ - obesity 828693337 Z68.31 Administra tion of diphtheria, pertussis, and tetanus vaccine 723791573 Z23 Administra tion of tetanus vaccine 238138615 Z23 Family his tory of diabetes mellitus 379725485 Z83.3 [id number] Mir Javier MD [place] [address] [place] [address] 04/03/2022 08:19:25 04/03/2022 09:37:30 Family history of diabetes mellitus 611697544 Z83.3 Anxiety 64908141 F41.9 Lumbosacra l radiculopathy 7398545 M54.16 Acid reflux 429427524 K2 1.9 Chronic back pain 875801 002 M54.10 Hypertensive disorder 38 155728 I10 Dizziness 874789517 R42 [id number] Alejandra Castellano APRN [address] [address] 05/16/2022 08:36:51 05/16/2022 09:47:10 Chronic back pain 990739436 M54.10 follow up with pain management as scheduledp laced off work for 2 weeks to do PT treatments Hypertensive disorder 38 780945 I10 renal artery duplexcard iology referralke ep bp log and bring to appointmen t next week Anxiety 26132983 F41.9 Liver enzy mes level above reference range 330472348 R74.8 Acid reflux 001053240 K2 1.9 Lumbosacra l radiculopathy 7570822 M54.16 [id number] Alejandra Castellano [address] [address] 05/22/2022 15:30:08 05/22/2022 16:17:32 Hypertensive disorder 32550253 I10 renal artery duplexcard iology follow up testing per cardiology eye examif any symptoms worsen return or be seen in edkeep bp log and bring to appointmen t next week Impaired f asting glycemia 724752105 R73.01 Influenza vaccine needed 2938847247 106 Z23 [id number] Alejandra Castellano [address] [address] 05/30/2022 14:38:17 05/30/2022 15:15:04 Chronic back pain 056046085 M54.10 follow up with pain management as scheduledp laced off work for 2 weeks to wait for appointmen t for neurosurge ry [id number] Alejandra Castellano 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 [address] [address] 06/10/2022 17:18:42 06/10/2022 18:15:08 COVID-19 013491071 U07.1 no sign of a bacterial infection. [...] hoursgo to ed brando if any concerns [id number] Eugonda Fryman, [address] [address] 06/13/2022 10:31:15 06/13/2022 10:43:38 COVID-19 949841739 U07.1 no sign of a bacterial infection. [...] brando if any concerns Chronic back pain 704164 002 M54.10 follow up with pain management as scheduledp laced off work ftill 07/13/22 until appointmen t for neurosurge ry Hypertensive disorder 38 406105 I10 cardiology follow up testing per cardiology if any symptoms worsen return or be seen in edkeep bp log and bring to appointmen t next week [id number] Alejandra Castellano [address] [address] 07/10/2022 09:31:31 07/10/2022 10:27:00 Anxiety 99146109 F41.9 Pt compliant with plan of careKasper reviewedme dication compliance discussedL ast uds:Control substance agreement on filePatien t identified triggers for anxiety and impact of anxious thinking on functionin g. Discussed strategies to regulate symptoms and need for compliance with treatment. Long-term drug therapy 492830557 Z79.452 [id number] Alejandra Castellano [address] [address] [address] 07/14/2022 09:59:20 07/14/2022 10:43:19 Chronic back pain [id number] M54.10 follow up with pain management as scheduledr eleased to return back to work on light duty for 4 weeks [id number] Alejandra Castellano APRN [address] [place] [address] 08/07/2022 08:48:39 08/07/2022 09:46:50 Chronic back pain 412163188 M54.10 follow up with pain management as scheduledd iscuss work restrictio ns with back specialist Anxiety 43849763 F41.9 Pt compliant with plan of careKasper reviewedme dication compliance discussedL ast uds:Control substance agreement on filePatien t identified triggers for anxiety and impact of anxious thinking on functionin g. Discussed strategies to regulate symptoms and need for compliance with treatment. [id number] Alejandra Castellano APRN [address] [address] 08/21/2022 08:50:54 08/21/2022 09:47:18 Chronic back pain 475792465 M54.10 follow up with pain management as scheduledd iscuss work restrictio ns with back specialist continue PT as scheduleda ny changes or new symptoms return or be seen in ed [id number] Alejandra Castellano APRN [address] [address] 09/04/2022 08:15:27 09/04/2022 08:48:46 Anxiety 73840585 F41.9 Pt compliant with plan of careKasper reviewedme dication compliance discussedL ast uds:Control substance agreement on filePatien t identified triggers for anxiety and impact of anxious thinking on functionin g. Discussed strategies to regulate symptoms and need for compliance with treatment. [id number] Alejandra Castellano APRN [address] [address] 10/16/2022 09:51:12 10/16/2022 10:45:47 Anxiety 18035537 F41.9 Pt compliant with plan of careKasper reviewed and appropriat emedicatio n compliance discussedL ast uds:Control substance agreement on filePatien t identified triggers for anxiety and impact of anxious thinking on functionin g. Discussed strategies to regulate symptoms and need for compliance with treatment. Active or passive immunization 605640686 Z23 [id number] Alejandra Castellano [address] [address] 11/17/2022 14:30:03 11/17/2022 15:22:36 Anxiety 34281300 F41.9 Pt compliant with plan of careKasper [...] time Long-term current use of drug therapy 493297078 Z79.143 [id number] Tessadarien cal [address] [address] 12/08/2022 08:45:49 12/08/2022 09:41:10 Hypertensive disorder 60267804 I10 cardiology follow up testing per cardiology if any symptoms worsen return or be seen in edkeep bp log and bring to appointmen t next week Anxiety 17753466 F41.9 Pt compliant with plan of careKasper [...] time Body mass index 25-29 - overweight 941238200 Z68.27 27.8 Overweight 641726647 E66 .3 Low back pain 627592006 M54.50 [id number] Alejandra Castellano [address] [address] 02/27/2023 16:03:45 02/27/2023 17:03:31 Depressive disorder 57503017 F32.A follow up with psych and therapy as scheduled Skin lesion 95021603 L98 .9 Impaired g lucose tolerance 9729332 R73.02 dexcom pro placedretu rn in 10 days for readings and treatment plan [id number] Alejandra Castellano [address] [address] 03/09/2023 07:59:32 03/09/2023 08:46:59 Body mass index 25-29 - overweight 519127750 Z68.25 25.9 Overweight 643128989 E66 .3 Dizzy spells 738215415 R 42 Increased thirst 0236584 03 R63.1 Impaired g lucose tolerance 9301508 R73.02 continue to monitor glucose and keep logglucose tolerancew hen spell starts check glucose every 10 mins [id number] Alejandra Castellano [address] [address] 03/27/2023 09:13:53 03/27/2023 10:08:08 Dizziness 093798001 R42 glucose tolerance results are good- recommend continue monitoring glucose and check glucose during episode.ca ll see cardiology brando and explain to them symptoms- for more work upreturn if any symptomsfo llow up with neurology [id number] [facility] [address] 05/07/2023 13:38:59 05/07/2023 14:10:51 Anxiety 11218191 F41.9 letter given to pt confirming diagnosis and the need for a taping foreman. informed the vet would know more about the other paperwork that is needed Depressive disorder 8186 6396 F30.A follow up with psych and therapy as scheduled [id number] [facility] [address] [place] [address] 12/15/2023 14:17:00 12/15/2023 15:37:04 Repetitive self-excoriation 905507184 F42.4 educated on scratch/it ch cycle Seborrheic dermatitis 50 048059 L21.9 [id number] [facility] [address] [address] 05/19/2023 14:34:58 05/19/2023 14:48:05 Influenza vaccine needed 1974941860 106 Z23 [id number] [facility], 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 [address] [address] 11/06/2023 08:38:22 11/06/2023 09:15:58 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 Depressive disorder 3542 7357 F32.A follow up with psych and therapy as scheduled Chronic back pain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
--- OUTSIDE RECORDS SUMMARY | 2025-07-26 11:57 | XMS_ITS | Continuity of Care Document ---
Author Organization [facility] Address [address] [place] [address] Care Team Providers Care Screen Printing Machine Loader Unloader Name Role Phone YVES BLACKMAN Referring Provider ALEJANDRA CASTELLANO Primary Care Provider [phone] Assessment No assessment recorded. Plan of Treatment Reminders Order Date Submit Date Provider Last Modified By Organization Details Last Modified Time Details Appointments Mental Health 20 2024 10:20A M Magalys Lee APRN Not available Not available Not available Lab None recorded. Referral None recorded. Procedures None recorded. Surgeries None recorded. Imaging None recorded. Medication Orders oxcarbaze pine 600 mg tablet [address], [address], 06/09/2025 10:12:25 quetiapin e 100 mg tablet [address], [address], 06/09/2025 10:24:52 duloxetin e 60 mg capsule,d elayed release [address], [address], 06/09/2025 10:24:52 Patient TargetsNo targets recorded. Patient Instructions Encounter Date Encounter Id Patient Instructions Last Modified By Organization Details Last Modified Time 06/09/2025 [id number] food assistance program referral* - pt with 2 children on disability loosing SNAP benefits. Not available 06/30/2025 09:43:41 Discussed R/B/SE/A of medications, and patient endorsed understanding. PDMR revd. Reviewed safety plan. Pt has crisis contact numbers and support persons identified. RTC 5 weeks [email or web address] Not available 06/09/2025 12:12:22 Reason for Referral None Reported. Results Created Date Observation Date Name Description Value Unit Range Abnormal Flag Note LastModifiedBy Organization Detail LastModifiedTime 05/09/2005/10/2025 CBC WITH DIFFE RENTI AL/PL ATELE T WBC 8.0 x10e3 /uL 3.4-10 .8 normal Not Available [facility] ([facility]) [address] [place], [address], 05/10/2025 09:07:55 05/09/2005/10/2025 CBC WITH DIFFE RENTI AL/PL ATELE T RBC 4.99 x10e6 /uL 4.14-5 .80 normal Not Available [facility] ([facility]) [address] [place], [address], 05/10/2025 09:07:55 05/09/20 25 05/10/2025 CBC WITH DIFFE RENTI AL/PL ATELE T hemoglobin 14.8 g/dL 13.0-1 7.7 normal Not Available [facility] ([facility]) [address] [place], [address], 05/10/2025 09:07:55 05/09/20 25 05/10/2025 CBC WITH DIFFE RENTI AL/PL ATELE T hematocrit 45.4 % 37.5-5 1.0 normal Not Available [facility] ([facility]) [address] [place], [address], 05/10/2025 09:07:55 05/09/20 25 05/10/2025 CBC WITH DIFFE RENTI AL/PL ATELE T MCV 91 fL 79-97 normal Not Available [facility] ([facility]) [address] [place], [address], 05/10/2025 09:07:55 05/09/20 25 05/10/2025 CBC WITH DIFFE RENTI AL/PL ATELE T MCH 29.7 pg 26.6-3 3.0 normal Not Available [facility] ([facility]) [address] [facility], [place], [address], 05/10/2025 09:07:55 05/09/20 25 05/10/2025 CBC WITH DIFFE RENTI AL/PL ATELE T MCHC 32.6 g/dL 31.5-3 5.7 normal Not Available [facility] ([facility]) [address] [place], [address], 05/10/2025 09:07:55 05/09/20 25 05/10/2025 CBC WITH DIFFE RENTI AL/PL ATELE T RDW 13.5 % 11.6-1 5.4 Not Available [facility] ([facility]) [address] [place], [address], 05/10/2025 09:07:55 05/09/20 25 05/10/2025 CBC WITH DIFFE RENTI AL/PL ATELE T platelets 278 x10e3 /uL 150-45 0 normal Not Available [facility] ([facility]) [address] [place], [address], 05/10/2025 09:07:55 05/09/20 25 05/10/2025 CBC WITH DIFFE RENTI AL/PL ATELE T neutrophils 67 % not estab. normal Not Available [facility] ([facility]) [address] [place], [address], 05/10/2025 09:07:55 05/09/20 25 05/10/2025 CBC WITH DIFFE RENTI AL/PL ATELE T lymphs 21 % not estab. normal Not Available [facility] ([facility]) [address] [facility], [place], [address], 05/10/2025 09:07:55 05/09/20 25 05/10/2025 CBC WITH DIFFE RENTI AL/PL ATELE T monocytes 9 % not estab. normal Not Available [facility] ([facility]) [address] [facility], [place], [address], 05/10/2025 09:07:55 05/09/20 25 05/10/2025 CBC WITH DIFFE RENTI AL/PL ATELE T eos 2 % not estab. normal Not Available [facility] ([facility]) [address] [facility], [place], [address], 05/10/2025 09:07:55 05/09/20 25 05/10/2025 CBC WITH DIFFE RENTI AL/PL ATELE T basos 1 % not estab. normal Not Available [facility] ([facility]) [address] [place], [address], 05/10/2025 09:07:55 05/09/20 25 05/10/2025 CBC WITH DIFFE RENTI AL/PL ATELE T immature cells DIRECT SALES REPRESENTATIVE Not Available [facility] ([facility]) [address] [place], [address], 05/10/2025 09:07:55 05/09/20 25 05/10/2025 CBC WITH DIFFE RENTI AL/PL ATELE T neutrophils (absolute) 5.4 x10e3 /uL 1.4-7. 0 normal Not Available [facility] ([facility]) [address] [place], [address], 05/10/2025 09:07:55 05/09/20 25 05/10/2025 CBC WITH DIFFE RENTI AL/PL ATELE T lymphs (absolute) 1.7 x10e3 /uL 0.7-3. 1 normal Not Available [facility] ([facility]) [address] [facility], [place], [address], 05/10/2025 09:07:55 05/09/20 25 05/10/2025 CBC WITH DIFFE RENTI AL/PL ATELE T monocytes(ab solute) 0.7 x10e3 /uL 0.1-0. 9 normal Not Available [facility] ([facility]) [address] [facility], [place], [address], 05/10/2025 09:07:55 05/09/20 25 05/10/2025 CBC WITH DIFFE RENTI AL/PL ATELE T eos (absolute) 0.2 x10e3 /uL 0.0-0. 4 normal Not Available [facility] ([facility]) [address] [facility], [place], [address], 05/10/2025 09:07:55 05/09/20 25 05/10/2025 CBC WITH DIFFE RENTI AL/PL ATELE T baso (absolute) 0.0 x10e3 /uL 0.0-0. 2 normal Not Available [facility] ([facility]) [address] [facility], [place], [address], 05/10/2025 09:07:55 05/09/20 25 05/10/2025 CBC WITH DIFFE RENTI AL/PL ATELE T immature granulocytes 0 % not estab. Not Available [facility] ([facility]) [address] [place], [address], 05/10/2025 09:07:55 05/09/20 25 05/10/2025 CBC WITH DIFFE RENTI AL/PL ATELE T immature grans (abs) 0.0 x10e3 /uL 0.0-0. 1 Not Available [facility] ([facility]) [address] [facility], [place], [address], 05/10/2025 09:07:55 05/09/20 25 05/10/2025 CBC WITH DIFFE RENTI AL/PL ATELE T NRBC DIRECT SALES REPRESENTATIVE Not Available [facility] ([facility]) [address] [facility] [place], [address], 05/10/2025 09:07:55 05/09/20 25 05/10/2025 CBC WITH DIFFE RENTI AL/PL ATELE T hematology comments: DIRECT SALES REPRESENTATIVE Not Available [facility] ([facility]) [address] [facility], [place], [address], 05/10/2025 09:07:55 05/09/20 25 05/10/2025 COMP. METAB OLIC PANEL (14) glucose 103 mg/dL 70-99 above high normal Not Available [facility] ([facility]) [address] [facility] [place], [address], 05/10/2025 09:07:56 05/09/20 25 05/10/2025 COMP. METAB OLIC PANEL (14) BUN 12 mg/dL 6-20 normal Not Available [facility] ([facility]) [address] [facility] [place], [address], 05/10/2025 09:07:56 05/09/20 25 05/10/2025 COMP. METAB OLIC PANEL (14) creatinine 0.98 mg/dL 0.76-1 .27 normal Not Available [facility] ([facility]) [address] [facility] [place], [address], 05/10/2025 09:07:56 05/09/20 25 05/10/2025 COMP. METAB OLIC PANEL (14) eGFR 102 mL/mi n/1.7 3 >59 normal Not Available [facility] ([facility]) [address] [facility] [place], [address], 05/10/2025 09:07:56 05/09/20 25 05/10/2025 COMP. METAB OLIC PANEL (14) BUN/creatini ne ratio 12 9-20 normal Not Available [facility] ([facility]) [address] [facility] [place], [address], 05/10/2025 09:07:56 05/09/20 25 05/10/2025 COMP. METAB OLIC PANEL (14) sodium 142 mmol/ L 134-14 4 normal Not Available [facility] ([facility]) [address] [place], [address], 05/10/2025 09:07:56 05/09/20 25 05/10/2025 COMP. METAB OLIC PANEL (14) potassium 4.3 mmol/ L 3.5-5. 2 normal Not Available [facility] ([facility]) [address] [place], [address], 05/10/2025 09:07:56 05/09/2005/10/2025 COMP. METAB OLIC PANEL (14) chloride 107 mmol/ L 96-106 above high normal Not Available [facility] ([facility]) [address] [place], [address], 05/10/2025 09:07:56 05/09/2005/10/2025 COMP. METAB OLIC PANEL (14) carbon dioxide, total 20 mmol/ L 20-29 normal Not Available [facility] ([facility]) [address] [place], [address], 05/10/2025 09:07:56 05/09/20 25 05/10/2025 COMP. METAB OLIC PANEL (14) calcium 9.2 mg/dL 8.7-10 .2 normal Not Available [facility] ([facility]) [address] [place], [address], 05/10/2025 09:07:56 05/09/20 25 05/10/2025 COMP. METAB OLIC PANEL (14) protein, total 7.0 g/dL 6.0-8. 5 normal Not Available [facility] ([facility]) [address] [facility] [place], [address], 05/10/2025 09:07:56 05/09/20 25 05/10/2025 COMP. METAB OLIC PANEL (14) albumin 4.6 g/dL 4.1-5. 1 normal Not Available [facility] ([facility]) [address] [facility] [place], [address], 05/10/2025 09:07:56 05/09/20 25 05/10/2025 COMP. METAB OLIC PANEL (14) globulin, total 2.4 g/dL 1.5-4. 5 Not Available [facility] ([facility]) [address] [facility] [place], [address], 05/10/2025 09:07:56 05/09/20 25 05/10/2025 COMP. METAB OLIC PANEL (14) bilirubin, total 0.7 mg/dL 0.0-1. 2 normal Not Available [facility] ([facility]) [address] [facility], [place], [address], 05/10/2025 09:07:56 05/09/20 25 05/10/2025 COMP. METAB OLIC PANEL (14) alkaline phosphatase 102 IU/L 47-123 normal Not Available [facility] ([facility]) [address] [facility] [place], [address], 05/10/2025 09:07:56 05/09/20 25 05/10/2025 COMP. METAB OLIC PANEL (14) AST (SGOT) 44 IU/L 0-40 above high normal Not Available [facility] ([facility]) [address] [facility] [place], [address], 05/10/2025 09:07:56 05/09/20 25 05/10/2025 COMP. METAB OLIC PANEL (14) ALT (SGPT) 79 IU/L 0-44 above high normal Not Available [facility] ([facility]) [address] [facility] [place], [address], 05/10/2025 09:07:56 05/09/20 25 05/10/2025 LIPID PANEL cholesterol, total 164 mg/dL 100-19 9 normal Not Available [facility] ([facility]) [address] [facility] [place], [address], 05/10/2025 09:07:56 05/09/20 25 05/10/2025 LIPID PANEL triglyceride s 104 mg/dL 0-149 normal Not Available [facility] ([facility]) [address] [facility] [place], [address], 05/10/2025 09:07:56 05/09/20 25 05/10/2025 LIPID PANEL HDL cholesterol 35 mg/dL >39 below low normal Not Available [facility] ([facility]) [address] [facility] [place], [address], 05/10/2025 09:07:56 05/09/20 25 05/10/2025 LIPID PANEL VLDL cholesterol lizzy 19 mg/dL 5-40 Not Available [facility] ([facility]) [address] [facility], [place], [address], 05/10/2025 09:07:56 05/09/20 25 05/10/2025 LIPID PANEL LDL chol calc ([facility]) 110 mg/dL 0-99 above high normal Not Available [facility] ([facility]) [address] [facility] [place], [address], 05/10/2025 09:07:56 05/09/20 25 05/10/2025 LIPID PANEL LDL calc comment: DIRECT SALES REPRESENTATIVE Not Available [facility] ([facility]) [address] [facility] [place], [address], 05/10/2025 09:07:56 05/09/20 25 05/10/2025 THYRO ID PANEL WITH TSH TSH 1.430 uIU/m L 0.450- 4.500 normal Not Available [facility] ([facility]) [address] [facility] [place], [address], 05/10/2025 09:07:57 05/09/2005/10/2025 THYRO ID PANEL WITH TSH thyroxine (T4) 8.5 ug/dL 4.5-12 .0 normal Not Available [facility] ([facility]) [address] [place] [address], [address], 05/10/2025 09:07:57 05/09/2005/10/2025 THYRO ID PANEL WITH TSH T3 uptake 25 % 24-39 normal Not Available [facility] ([facility]) [address] [place], [address], 05/10/2025 09:07:57 05/09/2005/10/2025 THYRO ID PANEL WITH TSH free thyroxine index 2.1 1.2-4. 9 normal Not Available [facility] ([facility]) [address] [place], [address], 05/10/2025 09:07:57 05/09/2005/10/2025 CARBA MAZEP INE(T EGRET [...] repea t josh sis Not Available [facility] ([facility]) [address] [place], [address], 05/10/2025 09:07:57 Result Notes None recorded. Problems Name Problem SNOMED Code Status Onset Date Resolution Date Notes Provider Name and Address Organization Details Recorded Time Suspecte d COVID-19 992175343 Completed 11/26/2020 Removal Reason: Problem added by user [email or web address] from the COVID-19 watch flag Angelika Benton null, [place] - [facility] 08/16/202 1 10:15:17 Suspecte d COVID-19 [id number] Completed 03/25/2021 Removal Reason: Problem marked historic al by user [email or web address] from the COVID-19 watch flag Angelika Benton null, [place] - [facility] 1 10:15:17 Hyperten sive disorder 70615734 Active 2015 Alejandra Castellano, SYSTEMS PROGRAM MANAGER [address], [place], [address], [place] - [facility] 2 09:50:17 Chronic back pain 443286386 Active 2015 Alejandra Castellano, SYSTEMS PROGRAM MANAGER [address], [place], [address], [place] [facility] 2 09:50:08 Acid reflux 774975492 Active 2015 Alejandra Castellano, SYSTEMS PROGRAM MANAGER [address], [place], [address], [place] [facility] 2 09:50:13 Ingrowin g nail 548958116 Completed 201510/07/2016 Mir Javier MD [address], [place], [address], [place] [facility] 7 19:56:38 Cellulit is 714875266 Completed 201510/07/2016 Candelaria Willis null[place] [facility] 8 14:49:31 Impacted cerumen 86081971 Completed 201610/29/2016 Candelaria [place] null[place] [facility] 7 08:30:44 Urinary symptoms 581809317 Completed 201603/09/2018 Candelaria Willis [place] [facility] 8 14:49:36 Cellulit is 902641583 Completed 201603/09/2018 Candelaria [place] [facility] 8 14:49:31 Infectio n of toenail 09867545376 220048 Completed 201603/09/2018 Candelaria [place] [facility] 8 14:49:39 Chest discomfo rt 021061062 Completed 201703/09/2018 Candelaria Willis [place] [facility] 8 14:49:44 Anxiety 97860431 Active 2017 Alejandra Castellano APRN [address], [place], [address], [place] [facility] 2 09:50:10 Lumbosac ral radiculo john 7065782 Active 2017 Alejandra Castellano APRN [address], [place] , [place], [address], [place] [facility] 2 09:50:23 Infectio n of toe 247949997 Completed 201812/13/2020 Mir Javier MD [address], [place], [address], [place] - [facility] 1 15:25:15 Injury of muscle of right foot 89635746461 815956 Completed 201912/13/2020 Mir Javier MD [address], [place], [address], [place] [facility] 1 15:25:09 Superfic ial puncture wound 801747456 Completed 201912/13/2020 Mir Javier MD [address], [place], [address], [place] [facility] 1 15:25:26 Acute pharyngi tis 511161156 Completed 202010/17/2021 Mir Javier MD [address], [place], [address], [place] [facility] 2 14:23:13 Family history of diabetes mellitus 709288106 Active 2021 Mir Javier MD [address], [place], [address], [place] [facility] 2 14:23:53 Dizzines s 707942607 Active 2021 Mir Javier MD [address], [place], [address], [place] [facility] 2 13:12:43 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 Alejandra Castellano, SYSTEMS PROGRAM MANAGER [address], [place], [address], [place] [facility] 4 09:16:00 Depressi ve disorder 93643558 Active 2022 Alejandra Castellano, SYSTEMS PROGRAM MANAGER [address], [place], [address], [place] [facility] 4 09:15:45 Gastroes ophageal reflux disease without esophagi tis 596831519 Active 2023 Alejandra Castellano, SYSTEMS PROGRAM MANAGER [address], [place], [address], [place] - [facility] 4 09:15:43 History of alcohol use disorder Active 2024 Magalys Lee, SYSTEMS PROGRAM MANAGER [address], [place], [address], [place] [facility] 5 11:56:12 Mixed hyperlip idemia 721016951 Active 2024 Alejandra Castellano, SYSTEMS PROGRAM MANAGER [address], [place], [address], [place] [facility] 5 13:54:02 Problem Notes None recorded. Procedures Surgical History Date Name Laterality Status Provider Name and Address Organization Details Recorded Time 07/14/20 24 Medication Reconcilliation completed Maritza Loza [place] - [facility] 07/14/2024 15:39:36 03/28/20 24 Cerumen Removal completed Clembrittany PATRICIA mccall [address], [place], [address], [place] - [facility] 03/28/2024 16:37:10 02/28/20 23 Dexcom Placement completed Clembrittany Castellano SYSTEMS PROGRAM MANAGER [address], [place], [place], [address], [place] - [facility] 02/27/2023 17:04:30 02/28/20 23 Medication Reconcilliation completed Jenni Drake [place] - [facility] 02/27/2023 16:18:27 07/12/20 20 Systolic B/P less than 130 mm Hg completed [place] - [facility] 07/12/2020 13:30:58 07/12/20 20 Diastolic B/P 80-89 mm Hg completed [facility] - [facility] 07/12/2020 13:31:00 03/21/20 20 Systolic B/P less than 130 mm Hg completed [facility] [place] - [facility] 03/21/2020 08:25:39 03/21/20 20 Diastolic B/P 80-89 mm Hg completed [facility] [place] - [facility] 03/21/2020 08:25:41 12/16/19 20 Systolic B/P less than 130 mm Hg completed [facility] - [facility] 12/16/2019 14:03:23 12/16/19 20 Diastolic B/P 80-89 mm Hg completed [facility] - [facility] 12/16/2019 14:03:26 12/16/19 20 Medication Reconcilliation completed [facility] - [facility] 12/16/2019 14:02:06 09/29/19 20 Diastolic B/P greater than or equal to 90 mm Hg completed [facility] - [facility] 09/29/2019 09:09:16 09/29/19 20 Systolic B/P 130-139 mm Hg completed [facility] - [facility] 09/29/2019 09:08:51 08/25/19 20 Diastolic B/P 80-89 mm Hg completed [facility] - [facility] 08/25/2019 08:49:38 08/25/19 20 Systolic B/P greater than or equal to 140 mm Hg completed [facility] - [facility] 08/25/2019 08:49:36 08/11/19 18 Back Surgery completed Savanna Powell [place] - [facility] 09/30/2018 14:31:35 07/01/20 17 Toenail Removal/Excision- permanent, partial or complete completed Candelariaboo Willis [place] - [facility] 07/01/2017 09:40:06 06/18/20 16 Toenail Removal/Excision- permanent, partial or complete completed Mir Javier MD [facility] [address], [address] [place] - [facility] 06/21/2016 16:04:54 Appendectomy completed Candelaria Willis [place] - [facility] 06/10/2016 16:31:57 [facility] [place] [facility] 06/10/2016 16:32:07 Knee arthroscopy/surger y completed Savanna Powell [place] - [facility] 09/30/2018 14:30:19 Imaging Results None recorded. Procedure Notes None recorded. Medical Equipment None Reported. Allergies Allergen ID Allergen Name Allergen Category Reaction Reaction Severity Criticality Documentation Date Start Date Code Code System Note Provider Name and Address Organization Details Recorded Time 773922 tizanidin e medicatio n Not available Not available Not available 08/22/2021 39449 RxNorm confu maria r Main Kayla falk [place] - [facility] 2 10:34:24 45020 Product containin g penicilli n (product) medicatio n Not available Not available Not available 05/16/20162014 54248 8001 SNOMED React ion: hives short ness of breat h; Not Available [facility] 6 10:39:07 Medications Name Sig Start Date [...] Prescrib ed on: 06/25/20 11:42AM; User: [email or web address] Oliver on: 08/24/19 16;Pharm acyVruperto ied: 06/25/20 [...] mg tablets in a dose pack TAKE DEVORAH Mancia TO PACKAGE INSTRUCT IONS --TAKE WITH FOOD-- [...] Recorded on: 12/06/19 16 8:29AM;U ser: [email or web address]. Completi on: 01/31/20 16;Indic ation: pain - (-5) Not Available Not Available Not Available lisinopri l one daily 01/13 completed lisonipr il 10 mg.;Marty rded Status: Recorded on: 12/06/19 16 8:26AM;U ser: [email or web address] Est. Completi on: 03/05/20 16 Not Available Not Available Not Available Parafon Forte DSC one tid prn 01/26 completed parafon dsc 500 mg.;Marty rded Status: Recorded on: 12/06/19 16 8:29AM;U ser: [email or web address] Est. Completi on: 01/27/20 16;Indic ation: back [...] Updated DateTime 5 185.42 cm 33.4 kg/m2 092739. 67 g 16 /min 0 87 /min 98 % 102/64 mm[Hg] Anabella Miranda [place] - [facility] 5 09:51:39 Social History Question Answer Notes LastModified by Organizat ion Details LastModified Time Tobacco Smoking Status Never Smoker Candelaria Sethilauryn [place], [place] - [facility] 06/10/2016 16:31:45 Able To Swim? Yes Information not available 05/22/2022 Do You Have An Advance Directive? No [email or web address] Information not available 02/17/2017 Do You Wear A Helmet When Biking? No Information not available 05/22/2022 Are You Blind Or Do You Have Difficulty Seeing? No Information not available 05/22/2022 Is Blood Transfusion Acceptable In An Emergency? Yes Information not available 05/22/2022 What Is Your Level Of Caffeine Consumption? Moderate [email or web address] Information not available 02/17/2017 How Much Tobacco [...] Do You Have Serious Difficulty Hearing? No [email or web address] Information not available 02/17/2017 What Type Of Diet Are You Following? REGULAR Information not available 05/22/2022 Which Illicit Or Recreational Drugs Have You Used? No [email or web address] Information not available 02/17/2017 Have You Processed [...] Or The Highest Degree You Have Received? [id number] Information not available 05/22/2022 Swimming/diving Yes Informati [...] Do You Have A Medical Power Of Tip Bander? No Information not available 05/22/2022 What Was [...] 05/22/2022 Do You Use Sunscreen Routinely? No [email or web address] Information not available 02/17/2017 Has Tobacco Cessation Counseling Been Provided? No Information not available 11/17/2022 On What Date Was Tobacco Cessation Counseling Provided? 07/14/2022 Non Smoker Information not available 07/14/2022 Do You Have Difficulty Walking Or Climbing Stairs? No Information not available 05/22/2022 Sex: Male Functional Status Question Answer Note LastModified by DOZ ion Details LastModified Time Do you or have you ever used smokeless tobacco? Never used smokeless tobacco [email or web address] Information not available 09/29/2019 Are you currently employed? Yes Information not available 02/17/2017 Do you have transportation difficulties? No Information not available 05/22/2022 Are you able to care for yourself independently? Yes [email or web address] Information not available 02/17/2017 Do you have difficulty dressing, bathing, grooming, or toileting? No Information not available 05/22/2022 Do you or have you ever used e-cigarettes or vape? Never used electronic cigarettes [email or web address] Information not available 09/29/2019 What is your exercise level? Occasional [email or web address] Information not available 02/17/2017 Do you use any illicit or recreational drugs? No Information not available 05/22/2022 Do you or have you ever used any other forms of tobacco or nicotine? No Information not available 05/22/2022 What is your level of alcohol consumption? None [email or web address] Information not available 02/17/2017 Are you able to walk independently without assistance or assistive devices? [email or web address] Information not available 05/22/2022 Do you have difficulty doing errands alone? 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 [id number] Information not available 05/22/2022 Do you have difficulty concentrating, remembering or making decisions? No Information no t available 05/22/2022 Family History Relationship Description Onset Age of this Age Resolved Age Notes LastModified by Organization Details LastModified Time Paternal Grandfather Malignant neoplasm of pancreas [email or web address] Not available 04/27 11:12:55 Mother Degeneration of lumbar intervertebr al disc Not available 04/27 11:13:15 Maternal Grandfather Carcinoma of prostate [email or web address] Not available 04/27 11:13:43 Medical History Condition Response Acid Reflux (GERD) Y Degenerative Disc Disease Y Hypertension Y Immunizations Vaccine Type Date Status Note Provider Nam e and Address Organization Details Recorded Time Hep A, ped/adol, 2 dose 3 completed Alejandra Castellano APRN [address], [place], [address], [place] - [facility] 10/16/2022 10:58:00 Hep B, adult 3 completed Alejandra Castellano APRN [address], [place], [address], [place] [facility] 10/16/2022 10:58:00 Pneumococcal conjugate PCV20, polysaccharide [id number] conjugate, adjuvant, PF 3 completed Alejandra Castellano APRN [address], [place], [address], [place] [facility] 10/16/2022 10:58:00 Influenza, split virus, quadrivalent, preservative 3 completed Maritza falk, [place] - [facility] 05/19/2023 15:11:30 Influenza, split virus, trivalent, preservative 4 completed Maritza [place]alk[place] [facility] 04/15/2024 14:32:22 Influenza, split virus, trivalent, PF 5 completed Maritza falk[place] [facility] 05/09/2025 08:57:30 Hep A, adult 8 completed Not Available [facility] 08/27/2019 03:55:36 Hep B, adolescent or pediatric 1 completed Jenni Stears null, [facility] 06/10/2022 17:40:30 Tdap 2 completed Jenni Stears null, [facility] 06/10/2022 17:40:30 Influenza, split virus, quadrivalent, preservative 5 completed Jenni Stears null, [facility] 06/10/2022 17:40:30 Influenza, split virus, quadrivalent, preservative 7 completed Jenni Stears null, [facility] 06/10/2022 17:40:30 COVID-19, mRNA, LNP-S, PF, 100 mcg/0.5mL dose or 50 mcg/0.25mL dose 1 completed Jenni Stears null, [facility] 06/10/2022 17:40:30 COVID-19, mRNA, LNP-S, PF, 100 mcg/0.5mL dose or 50 mcg/0.25mL dose 1 completed Jenni Stears null, [facility] 06/10/2022 17:40:30 Influenza, split virus, quadrivalent, PF 6 completed Jenni Stears null, [facility] 06/10/2022 17:40:30 Influenza, split virus, quadrivalent, preservative 9 completed Jenni Stears null, [facility] 06/10/2022 17:40:31 Influenza, split virus, quadrivalent, preservative 2 completed Jenni Stears null, [facility] 06/10/2022 17:40:31 Influenza, split virus, quadrivalent, preservative 0 completed Jenni Stears null, [facility] 06/10/2022 17:40:31 pneumococcal polysaccharide PPV23 0 completed Jenni Stears null, [place] - [facility] 06/10/2022 17:40:31 Influenza, split virus, quadrivalent, preservative 8 completed Jenni Stears null, [facility] 06/10/2022 17:40:31 Td (adult), 2 Lf tetanus toxoid, preservative free, adsorbed 5 completed Jenni Stears null, [place] - [facility] 06/10/2022 17:40:31 Influenza, split virus, trivalent, PF 0 completed Maritza Loza null, [place] - [facility] 11/17/2022 14:44:56 COVID-19, mRNA, LNP-S, bivalent, PF, 50 mcg/0.5 mL or 25mcg/0.25 mL dose 3 completed Jenni Stears null, [place] - [facility] 03/27/2023 09:20:19 Past Encounters Encounter ID Performer Location Encounter Start Date Encounter Closed Date Diagnosis/Indication Diagnosis SNOMED-CT Code Diagnosis ICD10 Code Diagnosis IMO Codes Diagnosis Note [id number] Alejandra Castellano APRN [address] [address] 05/09/2025 08:02:59 05/09/2025 09:00:11 Influenza vaccine needed 8296561285 106 Z23 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 59421384 F33.3 [id number] labs for psych Chronic post-traumatic stress disorder 929529114 F43.12 [id number] Lee [facility] [address] [place] [address] 05/19/2025 08:35:33 05/19/2025 12:12:09 Bipolar I disorder 641587945 F31.9 7024084 current episode depressed. Chronic depression 35308 0009 F32.A 109706 pt to start duloxetine 7 days after starting above meds. Chronic post-traumatic stress disorder 103785022 F43.12 [id number] pt has participat ed in therapy in past; not interested presently. History of alcohol use disorder 3222637366 F10.11 370145 none at present. [id number] Magalys Lee [employer] [facility] [address] [place] [address] 06/09/2025 09:41:01 06/09/2025 13:05:51 Bipolar I disorder 073768430 F31.9 increase meds as directed Depressive disorder 3548 9007 F32.A increase meds as directed Food insecurity 03038673 3 Z59.41 [id number] Psychophys iologic insomnia 902938890 F51.04 089136 sleep hygiene discussed and continue meds as directed. Health Concerns Section Related Observation LastModified by Organization Detai ls LastModified Time None Recorded Concern Status LastModified by Organization Details LastModified Time None Recorded Payers Encounter Date Sequence Insurance Name Policy Number Policy Rojas Covered Member ID Rojas Member ID Guarantor Name 06/09/2025 1 MEDICARE-[employer]Current (MEDICARE) Bill Tesfaye [id number] Bill Tesfaye Notes Date Note Type Note Provider Name and Address Organization Details Recorded Time 06/09/2025 text/html Bill presents to the office [...] pt on ropinirole for RLS. Magalys Lee, [employer] [address], [place], [address], [facility] - [facility] 06/09/2025 12:12:36
--- OUTSIDE RECORDS SUMMARY | 2025-07-26 11:57 | XMS_ITS | Clinical Summary ---
Author Organization [facility] Address [address] [place] [address] Care Team Providers Care Childcare Center Director Name Role Phone Ly Morales ROLLER VARNISHER Primary Care Provider [phone] Social History Tobacco Use Types Packs/Day Years [...] ANNUAL PHYSICAL 1987 HEPATITIS C SCREENING 1987 INFLUENZA VACCINE 03/10/2025 05/19/2023, , 05/22/2022, Additional history exists TDAP/TD VACCINES (3 - Td or Tdap) 10/18/2031 022, 01/13/2005 Pneumococcal Vaccine 0-49 Completed 10/16/2022, 04/2010 Insurance [facility] Care Teams Childcare Center Director Relationship Specialty Start Date End Date Ly Morales APRN [address] [place] [address] [place] [id number] PCP - General Family Medicine 11/03/23
== END 2025-07-26 23:59 | disposition home or self-care (01) ==
LOC: LAB 10:07
PROVIDERS: PCP Nurse Practitioner Family; Visit Provider Nurse Practitioner Family
DX: K75.81 Nonalcoholic steatohepatitis (NASH) (principal)
CPT/HCPCS: 36415; 80053